=== PATIENT | male | born 1965 | race Caucasian/White ===

== ENCOUNTER 2025-01-04 07:49 | Outpatient (REF) | payer MEDICARE, SELFPAY ==
[2025-01-04 06:40] LABS: MANUAL DIFF FLAG NO
[2025-01-04 06:50] LABS: Basophils Absolute Auto 0.1 X10*3/uL (0.0-0.2); Basophils Percent Auto 0.9 % (0-2); Eosinophils Absolute Auto 0.3 X10*3/uL (0.0-0.4); Eosinophils Percent Auto 3.4 % (0-4); Hematocrit 34.2 % (42.0-52.0); Hemoglobin 10.6 g/dl (14.0-18.0); Imm Gran Abs Auto 0.14 X10*3/uL (0.00-0.03); Imm Gran Pct Auto 1.6 % (0.0-0.4); Lymphocytes Percent Auto 22.2 % (20-40); Mean Corpuscular Volume 83.8 fL (80.0-98.0); Mean Platelet Volume 10.1 fL (9.4-12.4); Monocytes Percent Auto 10.6 % (2-11); Neutrophils Absolute Auto 5.5 x10*3/uL (2.0-8.3); Neutrophils Percent Auto 61.3 % (45-73); Platelet Count 270 X10*3/uL (160-400); Red Blood Count 4.08 X10*6/uL (4.60-5.80); Red Cell Distribution Width 15.3 % (11.0-16.0)
[2025-01-04 07:03] LABS: Anion Gap 14 (12-20); Blood Urea Nitrogen 21 mg/dL (9-16); Carbon Dioxide 30 mmol/L (22-29); Chloride 104 mmol/L (96-108); Estimated Glomerular Filt Rate > 60; Glucose Random 93 mg/dL (60-115); Potassium 4.7 mmol/L (3.3-5.1); Sodium 143 mmol/L (135-145)
--- OUTSIDE RECORDS SUMMARY | 2025-01-04 07:51 | XMS_ITS | Data Portability ---
Author Organization [facility], Main Office Address [address] [address] [address] [place] [address] Care Team Providers Care Marriage Counselor Minister Name Role Phone DENISE GONZALEZ Primary Care Provider [phone] MARELY DE LEON 1ST FLOOR OTHER Assessment Encounter Date Assessment Date Assessment LastModified by Organization Details LastModified Time 10/14/2024 10/14/2024 Labs 09/21: Na 138-K 4.6-Bun 26-Cr 1.0-wbc 17.4-hgb 11.6-hct 36.3-plt 357 10/08: Na 140, K 4.6, Bun 21, Cr 0.91. Wbc 9.9, hgb 9.6, hct 30.3, Plt 277. Not available 10/14/2024 10:10:09 10/21/2024 10/21/2024 Labs 09/21: Na 138-K 4.6-Bun 26-Cr 1.0-wbc 17.4-hgb 11.6-hct 36.3-plt 357 10/08: Na 140, K 4.6, Bun 21, Cr 0.91. Wbc 9.9, hgb 9.6, hct 30.3, Plt 277. 10/19: Na 140, K 4.6, Bun 28. Cr 1.21. Wbc 10.1, Hgb 7.8, Hct 24.7, Plt 333 Not available 10/21/2024 09:50:21 10/28/2024 10/28/2024 Labs 09/21: Na 138-K 4.6-Bun 26-Cr 1.0-wbc 17.4-hgb 11.6-hct 36.3-plt 357 10/08: Na 140, K 4.6, Bun 21, Cr 0.91. Wbc 9.9, hgb 9.6, hct 30.3, Plt 277. 4/14: Na 140, K 4.6, Bun 28. Cr 1.21. Wbc 10.1, Hgb 7.8, Hct 24.7, Plt 333 4/21: NA 140, K 4.1, Bun 25, Cr 1.21. Wbc 9.4, Hgb 7.7, Hct 25.1, Plt 416 Not available 10/28/2024 10:31:07 11/04/2024 11/04/2024 Labs 09/21: Na 138-K 4.6-Bun 26-Cr 1.0-wbc 17.4-hgb 11.6-hct 36.3-plt 357 /: Na 140, K 4.6, Bun 21, Cr 0.91. Wbc 9.9, hgb 9.6, hct 30.3, Plt 277. 4/14: Na 140, K 4.6, Bun 28. Cr 1.21. Wbc 10.1, Hgb 7.8, Hct 24.7, Plt 333 4/21: NA 140, K 4.1, Bun 25, Cr 1.21. Wbc 9.4, Hgb 7.7, Hct 25.1, Plt 416 /: Na 143, K 4.7, Bun 24, Cr 1.29. Wbc 8.5, Hgb 8.1, Hct 26.8, Plt 383 Chest Xray- no acute cardiopulmonary disease. Not available 11/04/2024 10:04:35 Plan of Treatment Reminders Order Date Submit Date Provider Last Modified By Organization Details Last Modified Time Details Appointments None record ed. Lab None record ed. Referral None record ed. Procedures None record ed. Surgeries None record ed. Imaging None record ed. Medication Orders None record ed. Patient TargetsNo targets recorded. Patient InstructionsNo instructions recorded. Reason for Referral None Reported. Problems Name Problem SNOMED Code Status Onset Date Resolution Date Notes Provider Name and Address Organization Details Recorded Time Nontraumati c intraparenc hymal cerebral hemorrhage 1698415394514 03 Active 2024 Esa Rodrigues MD [address] [facility], [address], [place], [address] , [facility] 02/07/202 5 11:08:30 Chronic obstructive pulmonary disease 26459309 Active 2024 Esa Rodrigues MD [address], [address], [place], [address], [facility] 5 11:08:49 Dysphagia 27488644 Active 2024 Esa Rodrigues MD [address], [address], [place], [address], [facility] 5 11:09:20 Atrial fibrillatio n 56041628 Active 2024 Esa Rodrigues MD [address], [address], [place], [address], [facility] 5 11:11:53 Coronary arterioscle rosis 70766157 Active 2024 Esa Rodrigues MD [address], [address], [place], [address], [facility] 5 11:11:58 Alcohol dependence 31935787 Active 2024 Esa Rodrigues MD [address], [address], [place], [address], [facility] 5 11:12:38 Tobacco user 629374758 Active 2024 Esa Rodrigues MD [address], [address], [place], [address], [facility] 5 11:12:43 Essential hypertensio n 61741301 Active 2024 Esa Rodrigues MD [address], [address], [place], [address], [facility] 5 11:12:48 Mixed hyperlipide micaela 110065671 Active 2024 Esa Rodrigues MD [address], [address], [place], [address], [facility] 5 11:12:56 Congestive heart failure 75400146 Active 2024 Esa Rodrigues MD [address], [address], [place], [address], [facility] 5 11:13:02 Problem Notes None recorded. Medical Equipment None Reported. Allergies Allergen ID Allergen Name Allergen Category Reaction Reaction Severity Criticality Documentation Date Start Date Code Code System Note Provider Name and Address Organization Details Recorded Time 62722 Product containin g penicilli n (product) medicatio n Not available Not available Not available 08/14/2024 02873 8001 SNOMED Esa Rodrigues MD [address] [place] [address], [facility] [address], [place], [address], [facility] 5 11:22:28 52466 shellfish derived food,medi cation Not available Not available Not available 08/14/2024 24160 UNK Esa Rodrigues MD [address] [place] [address], [address], [facility] 5 11:22:49 Medications Not known to be on any medication Vitals Date Recorded Heart rate Respiratory rate Body temperature Oxygen saturation Oxygen saturation in Arterial blood by Pulse oximetry Inhaled oxygen flow rate Systolic blood pressure Diastolic blood pressure Provider Name and Address Organization Details Last Updated DateTime 5 60 /min 18 /min 98.7 [degF] 98 % 98 % 2 L/min 136 mm[Hg] 75 mm[Hg] KIAN RODRIGUEZ CNP [address] [place] [address], [address] [facility] 5 10:14:04 Date Recorded Body weight Heart rate Respiratory rate Body temperature Oxygen saturation Oxygen saturation in Arterial blood by Pulse oximetry Inhaled oxygen flow rate Systolic blood pressure Diastolic blood pressure Provider Name and Address Organization Details Last Updated DateTime 5 24694.1 9 g 70 /min 18 /min 98.1 [degF] 96 % 96 % 2 L/min 143 mm[Hg] 74 mm[Hg] KIAN RODRIGUEZ CNP [address] [place] [address], [address] , [place] [facility] 5 09:55:08 Date Recorded Body weight Heart rate Respiratory rate Body temperature Oxygen saturation Oxygen saturation in Arterial blood by Pulse oximetry Inhaled oxygen flow rate Systolic blood pressure Diastolic blood pressure Provider Name and Address Organization Details Last Updated DateTime 5 12023.7 g 58 /min 18 /min 98.1 [degF] 94 % 94 % 2 L/min 110 mm[Hg] 63 mm[Hg] KIAN RODRIGUEZ CNP [address] [facility], [address], [place], [address], [facility] 5 09:37:59 Date Recorded Systolic blood pressure Diastolic blood pressure Provider Name and Address Organization Details Last Updated DateTime 11/09/2024 135 mm[Hg] 64 mm[Hg] Esa Rodrigues MD [address] [facility], [address], [place], [address], [facility] 11/09/2024 11:23:22 Date Recorded Heart rate Systolic blood pressure Diastolic blood pressure Provider Name and Address Organization Details Last Updated DateTime 11/11/2024 87 /min 116 mm[Hg] 67 mm[Hg] KIAN RODRIGUEZ CNP [address] [facility], [facility] [address], [place], [address], [facility] 11/11/2024 10:11:22 Social History Question Answer Notes LastModified by Organizat ion Details LastModified Time Tobacco Smoking Status Current Every Day Smoker Esa Rodrigues MD [address] [facility] [address], [place], [address], [facility] 08/14/2024 11:21:57 Do You Have An Advance Directive? No Information not available 08/14/2024 What Is Your Code Status? Full Code Information not available 08/14/2024 Sex: Unknown Functional Status Question Answer Note LastModified by Organization D etails LastModified Time What is your level of alcohol consumption? Heavy Information not available 08/14/2024 Mental Status None recorded. Family History Nothing Reported Notes:N/C Medical History No medical history recorded. Immunizations Vaccine Type Date Status Note Provider Nam e and Address Organization Details Recorded Time Tdap 09/28/2016 completed Pattie cabrales [facility] [place] 08/14/2024 16:05:11 SARS-COV-2 (COVID-19) vaccine, UNSPECIFIED 11/29/2020 completed Pattie cabrales [facility] [place] 08/14/2024 16:05:29 Past Encounters Encounter ID Performer Location Encounter Start Date Encounter Closed Date Diagnosis/Indication Diagnosis SNOMED-CT Code Diagnosis ICD10 Code Diagnosis Note [id number] MD SHANNEN Vides [address] [place] [address] 08/14/2024 10:59:15 08/17/2024 16:18:46 Nontraumatic intraparenchymal cerebral hemorrhage 3978003042 93137 I61.8 see HPIrecentl y discharged from hospital for right Intraparen chymal hemorrhage with mild left hemiparesi s and dysarthria on discharge. At home dysarthria worsened and returned to hospital. Repeat imaging showed reabsorpti on of IPH however worsening vasogenic edema with midline shift. Started on ASA 08/05 through 08/26 with f/u neuro in place. Continued on dysphagia diet and continued on keppra 750 mg bid with plan to reassess ability to restart xarelto on 08/26 Chronic ob structive pulmonary disease 72710293 J44.1 restart qid duonebsmon itor respirator y statuscomp lete prednisone coursecoor dinate with respirator y at facilitypu lmonary eval prn Respirator y syncytial virus infection 73971799 B97.4 see above Asthenia 38751463 R53.1 PT OT eval and treatmonit or fall risk and need for increased support in community Dysphagia 83919804 I69.2 91 monitor aspiration risk and need to further adjust diet Atrial fibrillation 4943 6004 I48.0 Xarelto on hold due to aboveamiod arone 200 mg qdasa 81 mg qd through 08/26metopr olol 50 mg qdmonitor for rate control Coronary arteriosclerosis 68244973 I25.10 lipitor 40 mg qdmetoprol ol 50 mg qdmonitor for sx Alcohol dependence 29130 003 F10.20 added to PMHcontinu e thiaminemo nitor need for increased support in community Tobacco user 457847152 Z 72.0 added to PMHencoura ge quittingco ntinue nicotine supplement Essential hypertension 61806613 I10 metoprolol 50 mg qdlasix 40 mg qdlisinopr il 10 mg qdentresto 24-26 mg bidmonitor bp and need titrate Mixed hyperlipidemia 267 442821 E78.2 lipitor 40 mg qdcontinue d Congestive heart failure 51761978 I50.22 EF=35%lasi x 40 mg qdentresto 24-26 mg bidmonitor respirator y and fluid status [id number] URIEL PRIDE TIMOTHY [address] [place] [address] 08/19/2024 13:34:52 08/20/2024 13:07:58 Nontraumatic intraparenchymal cerebral hemorrhage 6263689021 42350 I61.8 continue ASA 08/05 through 08/26 with f/u neuro in place.Cont inued on dysphagia diet and continued on keppra 750 mg bid with plan to reassess ability to restart xarelto on 08/26neuros intact Chronic ob structive pulmonary disease 71590461 J44.1 continue duonebs QIDmonitor respirator y statuspulm nurse to followlung sounds still coarse Respirator y syncytial virus infection 75751758 B97.4 improving slowly [id number] URIEL LORD SHANNEN AGUIRRE [address] [place] [address] 08/24/2024 09:32:25 08/25/2024 12:01:07 Nontraumatic intraparenchymal cerebral hemorrhage 2064060813 94653 I61.8 continue ASA 08/05 through 08/26 with f/u neuro in place.Cont inued on dysphagia diet and continued on keppra 750 mg bid with plan to reassess ability to restart xarelto on 08/26 Chronic ob structive pulmonary disease 49950073 J44.1 continue duonebs QID Respirator y syncytial virus infection 97004574 B97.4 resolved Asthenia 94907374 R53.1 baselineVN A Outpt Atrial fibrillation 4943 6004 I48.0 Xarelto on hold due to aboveamiod arone 200 mg qdasa 81 mg qd through 08/26 then restart xareltomet oprolol 50 mg qd Coronary arteriosclerosis 57651460 I25.10 lipitor 40 mg qdmetoprol ol 50 mg qd Alcohol dependence 16969 003 F10.20 continue thiamine Tobacco user 806939811 Z 72.0 added to PMHenc[place] ge quittingco ntinue nicotine supplement Essential hypertension 29849253 I10 metoprolol 50 mg qdlasix 40 mg qdlisinopr il 10 mg qdentresto 24-26 mg bid Mixed hyperlipidemia 267 486174 E78.2 lipitor 40 mg qd Congestive heart failure 01293714 I50.22 EF=35%lasi x 40 mg qdentresto 24-26 mg bid [id number] MD MARELY iVdes HALEY [address] [place] [address] rd [place] [address] 09/02/2024 09:13:06 09/07/2024 15:57:48 Nontraumatic intraparenchymal cerebral hemorrhage 5307672914 30441 I61.8 see HPIrecentl y discharged from hospital for right Intraparen chymal hemorrhage with mild left hemiparesi s and dysarthria on dischargem aintained onxarelto 20 mg qdkeppra 1500 mg bidcoordin ate with neuro as needed Chronic ob structive pulmonary disease 57449752 J44.1 monitor neb utilizatio n and respirator y statusnow onpredniso ne 60 mg qdwill decrease by 10 mg q 5 days till at 10 mg then reassesspu lmonary eval prn Asthenia 36116168 R53.1 PT OT eval and treatmonit or fall risk and need for increased support in community Dysphagia 87808895 I69.2 91 monitor aspiration risk and need to further adjust diet Atrial fibrillation 4943 6004 I48.0 Xarelto 20 mg qdamiodaro ne 200 mg qdmetoprol ol 50 mg qdmonitor for rate control Coronary arteriosclerosis 50181039 I25.10 lipitor 40 mg qdmetoprol ol 50 mg qdmonitor for sx Alcohol dependence 57322 003 F10.20 added to PMHcontinu e thiaminemo nitor need for increased support in community Tobacco user 877019650 Z 72.0 added to PMHencoura ge quittingco ntinue nicotine supplement Essential hypertension 08877673 I10 metoprolol 50 mg qdnorvasc 5 mg qdlasix 40 mg qdentresto 24-26 mg bidmonitor bp and need titrate Mixed hyperlipidemia 267 703908 E78.2 lipitor 40 mg qdcontinue d Congestive heart failure 15160301 I50.22 EF=35%lasi x 40 mg qdentresto 24-26 mg bidmonitor respirator y and fluid status [id number] MARY SQUIRES [address] [place] [address] 10/04/2024 10:50:42 10/27/2024 08:10:53 Chronic obstructive pulmonary disease 00369652 J44.1 stable O2 dependentm onitor respirator y statusCont prednisone 5mg qdpulmonar y eval prn Nontraumat ic intraparenchymal cerebral hemorrhage 8156577061 54043 I61.8 stablerece ntly discharged from hospital for right Intraparen chymal hemorrhage with mild left hemiparesi s and dysarthria on dischargem aintained onxarelto 20 mg qdkeppra 1500 mg bidcoordin ate with neuro as needed Atrial fibrillation 4943 6004 I48.0 HR controlled Xarelto 20 mg qdamiodaro ne 200 mg qdmetoprol ol 50 mg qdmonitor for rate control Coronary arteriosclerosis 67864590 I25.10 stablelipi tor 40 mg qdmetoprol ol 50 mg qdmonitor for sx Essential hypertension 77625699 I10 stablemeto prolol 50 mg qdnorvasc 5 mg qdlasix 40 mg qdentresto 24-26 mg bidmonitor bp and need titrate Congestive heart failure 34758031 I50.22 stable euvolemicE F=35%lasix 40 mg qdentresto 24-26 mg bidmonitor respirator y and fluid status [id number] KIAN RODRIGUEZ, MEDARDO [address] [place] [address] 10/07/2024 08:46:35 10/09/2024 08:38:44 Chronic obstructive pulmonary disease 04167639 J44.1 now on prednisone 10 mg daily. Will taper down to 5 mg daily and will reassess.C ontinue neb QID.Contin ue monitor respirator y status.pul monary eval prn.Will check lab, CBC, CMP tomorrow. Nontraumat ic intraparenchymal cerebral hemorrhage 1515617860 12118 I61.8 see HPIrecentl y discharged from hospital for right Intraparen chymal hemorrhage with mild left hemiparesi s and dysarthria on discharge. Stable now.mainta ined onxarelto 20 mg qdkeppra 750 mg bidcoordin ate with neuro as needed Asthenia 66623777 R53.1 Improving. Continue PT OT, PRN eval and treatmonit or fall risk and need for increased support in community Dysphagia 09893682 I69.2 91 Resolved.I s currently is on regular diet, no coughing or chocking reported. Atrial fibrillation 4943 6004 I48.0 HR stable.Xar elto 20 mg qdamiodaro ne 200 mg qdmetoprol ol 50 mg qdmonitor for rate control Coronary arteriosclerosis 09965694 I25.10 lipitor 40 mg qdmetoprol ol 50 mg qdmonitor for sx Alcohol dependence 68463 003 F10.20 added to PMHcontinu e thiaminemo nitor need for increased support in community Tobacco user 008070283 Z 72.0 added to PMHenc[place] ge quittingco ntinue nicotine supplement Essential hypertension 54627158 I10 metoprolol 50 mg qdnorvasc 5 mg qdlasix 40 mg qdentresto 24-26 mg bidmonitor bp and need titrate Mixed hyperlipidemia 267 805911 E78.2 lipitor 40 mg qdcontinue d Congestive heart failure 16588276 I50.22 EF=35%Pt is euvolemic, but gained 14 lb over a month.? volume overload or due to high dose of prednisone .continuel asix 40 mg qdentresto 24-26 mg bidmonitor respirator y and fluid statuswill monitor wt weekly.Sabas l check labs tomorrow. [id number] KIAN RODRIGUEZ, MEDARDO [address] [address] 10/14/2024 09:50:34 10/21/2024 11:35:43 Chronic obstructive pulmonary disease 09707501 J44.1 now on prednisone 5 mg daily, Will taper down to 2.5 mg daily and will reassess.w bc trending down.Keiry nue neb.Contin ue monitor respirator y status.pul monary eval prn.Will check lab weekly. Nontraumat ic intraparenchymal cerebral hemorrhage 9105437160 48144 I61.8 see HPIrecentl y discharged from hospital for right Intraparen chymal hemorrhage with mild left hemiparesi s and dysarthria on discharge. Stable now.mainta ined onxarelto 20 mg qdkeppra 750 mg bidcoordin ate with neuro as needed Asthenia 62565281 R53.1 Improving. Continue PT OT, PRN eval and treatmonit or fall risk and need for increased support in community Dysphagia 74870900 I69.2 91 Resolved.I s currently is on regular diet, no coughing or chocking reported. Atrial fibrillation 4943 6004 I48.0 HR stable.Xar elto 20 mg qdamiodaro ne 200 mg qdmetoprol ol 50 mg qdmonitor for rate control Coronary arteriosclerosis 79875398 I25.10 lipitor 40 mg qdmetoprol ol 50 mg qdmonitor for sx Alcohol dependence 87649 003 F10.20 added to PMHcontinu e thiaminemo nitor need for increased support in community Tobacco user 585496378 Z 72.0 added to PMH[place] ge quittingco ntinue nicotine supplement Essential hypertension 52140213 I10 BP stable.met oprolol 50 mg qdnorvasc 5 mg qdlasix 40 mg qdentresto 24-26 mg bidmonitor bp and need titrate Mixed hyperlipidemia 267 637148 E78.2 lipitor 40 mg qdcontinue d Congestive heart failure 56746084 I50.22 EF=35%Pt is euvolemic, but gained 14 lb over a month.? volume overload or due to high dose of prednisone .continuel asix 40 mg qdentresto 24-26 mg bidmonitor respirator y and fluid statuswill monitor wt weekly.Sabas l check labs tomorrow. [id number] KIAN RODRIGUEZ, SHAPE CARVER [address] [address] 10/21/2024 09:10:50 10/27/2024 08:23:45 Chronic obstructive pulmonary disease 94268301 J44.1 Stable, no exacerbati on noted.Pred nisone tapered down to 2.5 mg now, and will tapered to 1 mg daily for 5 days and then stop.wbc trending down.will change neb treatment as PRN.Contin ue monitor respirator y status.pul monary eval prn.Will check lab weekly. Nontraumat ic intraparenchymal cerebral hemorrhage 6822569244 24216 I61.8 see HPIrecentl y discharged from hospital for right Intraparen chymal hemorrhage with mild left hemiparesi s and dysarthria on discharge. Stable now.mainta ined onxarelto 20 mg qdkeppra 750 mg bidcoordin ate with neuro as needed Asthenia 27581997 R53.1 Improving. Continue PT OT, PRN eval and treatmonit or fall risk and need for increased support in community Dysphagia 60618409 I69.2 91 Resolved.I s currently is on regular diet, no coughing or chocking reported. Atrial fibrillation 4943 6004 I48.0 HR stable.Xar elto 20 mg qdamiodaro ne 200 mg qdmetoprol ol 50 mg qdmonitor for rate control Coronary arteriosclerosis 75297121 I25.10 lipitor 40 mg qdmetoprol ol 50 mg qdmonitor for sx Alcohol dependence 50558 003 F10.20 added to PMHcontinu e thiaminemo nitor need for increased support in community Tobacco user 261168691 Z 72.0 added to PMHencoura ge quittingco ntinue nicotine supplement Essential hypertension 00327487 I10 BP stable.met oprolol 50 mg qdnorvasc 5 mg qdlasix 40 mg qdentresto 24-26 mg bidmonitor bp and need titrate Mixed hyperlipidemia 267 095801 E78.2 lipitor 40 mg qdcontinue d Congestive heart failure 69612065 I50.22 EF=35%Pt is euvolemic, but gained 14 lb over a month.? volume overload or due to high dose of prednisone .continuel asix 40 mg qdentresto 24-26 mg bidmonitor respirator y and fluid statuswill monitor wt weekly.Sabas carlos eduardo check labs tomorrow. [id number] KIAN RODRIGUEZ CNP [address] [address] 10/28/2024 09:19:53 11/03/2024 11:20:44 Chronic obstructive pulmonary disease 78771751 J44.1 Stable, no exacerbati on noted.Pred nisone tapered down and completed yesterday. wbc trending down.He has been using neb treatment as PRN.Contin ue monitor respirator y status.ref er to pulmonary for evalWill check lab weekly. Nontraumat ic intraparenchymal cerebral hemorrhage 7912217880 57156 I61.8 see HPIrecentl y discharged from hospital for right Intraparen chymal hemorrhage with mild left hemiparesi s and dysarthria on discharge. Stable now.mainta ined onxarelto 20 mg qdkeppra 750 mg bidcoordin ate with neuro as needed Asthenia 83636840 R53.1 Improving. Continue PT OT, PRN eval and treatmonit or fall risk and need for increased support in community Atrial fibrillation 4943 6004 I48.0 HR stable.Xar elto 20 mg qdamiodaro ne 200 mg qdmetoprol ol 50 mg qdmonitor for rate control Coronary arteriosclerosis 57243382 I25.10 lipitor 40 mg qdmetoprol ol 50 mg qdmonitor for sx Alcohol dependence 49645 003 F10.20 added to PMHcontinu e thiaminemo nitor need for increased support in community Tobacco user 734850948 Z 72.0 added to PMHencoura ge quittingco ntinue nicotine supplement Essential hypertension 86817906 I10 BP stable.met oprolol 50 mg qdnorvasc 5 mg qdlasix 40 mg qdentresto 24-26 mg bidmonitor bp and need titrate Mixed hyperlipidemia 267 913276 E78.2 lipitor 40 mg qdcontinue d Congestive heart failure 67540166 I50.22 EF=35%Pt is euvolemic, but gained 14 lb over a month.? volume overload or due to high dose of prednisone .continuel asix 40 mg qdentresto 24-26 mg bidmonitor respirator y and fluid statuswill monitor wt weekly.Sabas l check labs tomorrow. [id number] KIAN RODRIGUEZ, MEDARDO [address] [address] 11/04/2024 09:35:19 11/06/2024 14:11:01 Chronic obstructive pulmonary disease 29066334 J44.1 Stable, no exacerbati on noted.Pred nisone tapered down and completed last week.wbc trending down.He has been using neb treatment as PRN.Contin ue monitor respirator y status.pul monary evaluation scheduled. Will check lab weekly. Nontraumat ic intraparenchymal cerebral hemorrhage 6720091323 00192 I61.8 see HPIrecentl y discharged from hospital for right Intraparen chymal hemorrhage with mild left hemiparesi s and dysarthria on discharge. Stable now.mainta ined onxarelto 20 mg qdkeppra 750 mg bidcoordin ate with neuro as needed Asthenia 32693707 R53.1 Improving. Continue PT OT, PRN eval and treatmonit or fall risk and need for increased support in community Atrial fibrillation 4943 6004 I48.0 HR stable.Xar elto 20 mg qdamiodaro ne 200 mg qdmetoprol ol 50 mg qdmonitor for rate control Coronary arteriosclerosis 91261273 I25.10 lipitor 40 mg qdmetoprol ol 50 mg qdmonitor for sx Alcohol dependence 71878 003 F10.20 added to PMHcontinu e thiaminemo nitor need for increased support in community Tobacco user 211887162 Z 72.0 added to PMH[place] ge quittingco ntinue nicotine supplement Essential hypertension 88189992 I10 BP stable.met oprolol 50 mg qdnorvasc 5 mg qdlasix 40 mg qdentresto 24-26 mg bidmonitor bp and need titrate Mixed hyperlipidemia 267 295674 E78.2 lipitor 40 mg qdcontinue d Congestive heart failure 19307138 I50.22 EF=35%Pt is euvolemic, but gained 14 lb over a month.? volume overload or due to high dose of prednisone .continuel asix 40 mg qdentresto 24-26 mg bidmonitor respirator y and fluid statuswill monitor wt weekly.car diology f/u scheduled today. [id number] Esa Rodrigues MD [address] [place] [address] 11/09/2024 11:22:44 11/11/2024 14:10:04 Acute kidney injury 92711631 N17.8 see HPI question due to diuresisno w metolazone has been discontinu eddischarg ed on torsemide 20 mg with frequency to be confirmed with hospital - monitor need to increase to BIDwill change to q day and monitor weightsdis cussed with nursing Normocytic anemia 250210 002 D64.9 acute on chronic anemianow on iron 325 mg m/w/fto f/u with GI out patient with no bleeding source foundhx need for iron infusionmo nitor cbcheme eval prnof note remains on xarelto Congestive heart failure 35619912 I50.22 now ontorsemid e 20 mg qdentresto 24-26 mg bidmonitor respirator y and fluid statusupda te cards with concerns Chronic ob structive pulmonary disease 98798459 J44.1 recent need for prednisone utilizatio nmonitor respirator y statuspulm onary eval prn Nontraumat ic intraparenchymal cerebral hemorrhage [id number] I61.8 prior right Intraparen chymal hemorrhage with mild left hemiparesi s and dysarthria on dischargem aintained onxarelto 20 mg qdkeppra 750 mg bidcoordin ate with neuro as needed Asthenia [id number] R53.1 PT OT eval and treatmonit or fall risk and need for increased support in community Dysphagia [id number] I69.2 91 monitor aspiration risk and need to further adjust diet Atrial fibrillation [id number] I48.0 Xarelto 20 mg qdamiodaro ne 200 mg qdmetoprol ol 12.5 mg qdmonitor for rate control Coronary arteriosclerosis [id number] I25.10 lipitor 40 mg qdmetoprol ol 12.5 mg qdmonitor for sx Essential hypertension [id number] I10 see HPI with changes now onmetoprol ol 12.5 mg qdtorsemid e 20 mg qd - pending confirmati on from [facility] tresto 24-26 mg bidmonitor bp and need titrate Mixed hyperlipidemia [id number] E78.2 lipitor 40 mg qdcontinue d Health Concerns Section Related Observation LastModified by Organization Detai ls LastModified Time None Recorded Concern Status LastModified by Organization Details LastModified Time None Recorded Advance Directives Directive N: Payers Insurance Date Sequence Insurance Name Policy Number Policy Rogers Covered Member ID Rogers Member ID Guarantor Name 11/09/2024 2 [place] [facility] Dwaine Orellana [id number] Dwaine Orellana 11/09/2024 1 [place] [employer] Dwaine Orellana [id number] Dwaine Orellana Notes Date Note Type Note Provider Name and Address Organization Details Recorded Time 10/14/2024 text/html This is a 59 yea r old male seen today for acute rounding visit.Patient here after recent prior hospitalizations due to worsening intraparenchymal hemorrhage and SOB on exertion. Question of COPD exacerbation vs rebound sx on stopping steroid. Imaging negative for acute issue with CTA negative for PE. Restarted on high dose steroids at prednisone 60 mg qd and tapered down to 10 mg daily now. Upon assessment today, pt was sitting in his bed, stable at his baseline, O2 dependent on 2L NC, VSS, NAD, there is no acute nursing concerns. He was on predisone 10 mg on discharge. He was not on chronic prednisone therapy prior to the hospitalization. We started taper prednisone, now on 5 mg daily. His respiratory status back to his baseline, can ambulate with 2-2.5 L oxygen without difficulty.He concerned about wt gain. He gained 14 lb since 09/05/24. From prior admit from hospital patient was recently discharged for right Intraparenchymal hemorrhage with mild left hemiparesis and dysarthria on discharge. At home dysarthria worsened and returned to hospital. Repeat imaging showed reabsorption of IPH however worsening vasogenic edema with midline shift. Complicated by testing positive for RSV. Started on ASA 08/05 through 08/26 with f/u neuro in place. He is off dysphagia diet, now regular diet. PMH significant forrecent intraparenchymal hemorrhage with left hemiparesis, a fib on xarelto 20 mg,cad, etoh, tobacco use, htn, hld, chf EF=35%, copd. KIAN RODRIGUEZ, SHAPE CARVER [address] [facility], [address], [place], [address], [facility] [employer] 10/14/2024 10:14:44 10/21/2024 text/html This is a 59 yea r old male seen today for acute rounding visit. Patient here after recent prior hospitalizations due to worsening intraparenchymal hemorrhage and SOB on exertion. Question of COPD exacerbation vs rebound sx on stopping steroid. Imaging negative for acute issue with CTA negative for PE. Restarted on high dose steroids at prednisone 60 mg qd and tapered down to 10 mg daily now. Upon assessment today, pt was sitting in his bed, stable at his baseline, O2 dependent on 2L NC, VSS, NAD, there is no acute nursing concerns. He was on predisone 10 mg on discharge. He was not on chronic prednisone therapy prior to the hospitalization. We started taper prednisone, now on 2.5 mg daily. His respiratory status back to his baseline, can ambulate with 2-2.5 L oxygen without difficulty. He also uses scheduled neb treatment QID. Pt states that he does not need to use neb QID. PMH significant forrecent intraparenchymal hemorrhage with left hemiparesis, a fib on xarelto 20 mg,cad, etoh, tobacco use, htn, hld, chf EF=35%, copd. KIAN RODRIGUEZ, SHAPE CARVER [address] [facility], [address], [place], [address], [facility] [employer] 10/21/2024 10:05:50 10/28/2024 text/html This is a 59 yea r old male seen today for acute rounding visit. Patient here after recent prior hospitalizations due to worsening intraparenchymal hemorrhage and SOB on exertion. Question of COPD exacerbation vs rebound sx on stopping steroid. Imaging negative for acute issue with CTA negative for PE. Restarted on high dose steroids at prednisone 60 mg qd and tapered down to 10 mg daily now. Upon assessment today, pt was sitting in his bed, stable at his baseline, O2 dependent on 2L NC, VSS, NAD, there is no acute nursing concerns. He had Predisone 10 mg on discharge. He was not on chronic prednisone therapy prior to the hospitalization. We started taper prednisone and completed. His respiratory status back to his baseline, can ambulate with 2-2.5 L. The neb treatment QID also changed to PRN. Per nursing he request neb and albuterol once or twice a day. Pt states that he feels a little weaker and increased sob when he ambulate the hallway. PMH significant forrecent intraparenchymal hemorrhage with left hemiparesis, a fib on xarelto 20 mg,cad, etoh, tobacco use, htn, hld, chf EF=35%, copd. KIAN RODRIGUEZ CNP [address] [facility], [address], [place], [address], [facility] [employer] [facility] 10/28/2024 10:41:17 11/04/2024 text/html This is a 59 yea r old male seen today for acute rounding visit. Patient here after recent prior hospitalizations due to worsening intraparenchymal hemorrhage and SOB on exertion. Question of COPD exacerbation vs rebound sx on stopping steroid. Imaging negative for acute issue with CTA negative for PE. Restarted on high dose steroids at prednisone 60 mg qd and tapered down to 10 mg daily now. Upon assessment today, pt was sitting in his bed, stable at his baseline, O2 dependent on 2L NC, VSS, NAD, there is no acute nursing concerns. He was on Predisone 10 mg on discharge. He was not on chronic prednisone therapy prior to the hospitalization. We started taper prednisone and completed. His respiratory status back to his baseline, can ambulate with 2-2.5 L. The neb treatment QID also changed to PRN. Per nursing he request neb and albuterol once or twice a day.He had a chest x ray done on 11/02 due to increased wt and feeling shortness of breath. Chest xray revealed no acute cardiopulmonary disease. He has a cardiology appointment today and also pulmonology consult appointment scheduled. PMH significant forrecent intraparenchymal hemorrhage with left hemiparesis, a fib on xarelto 20 mg,cad, etoh, tobacco use, htn, hld, chf EF=35%, copd. KIAN RODRIGUEZ CNP [address] [facility], [address], [place], [address], [employer] [facility] 11/04/2024 10:05:56 11/09/2024 text/html Patient is a 59 yo male seen for readmission after acute transfer presenting with ARF and anemia. Hypotensive on presentation now with norvasc and metolazone were d/c and metoprolol dose decreased to 12.5 mg qd after eval by cards. Noted anemia with hx of need for iron infusions, eval by GI with no source of bleeding noted. Started on iron 325 mg m/w/f to f/u with GI out patient. Of note maintained on xarelto Esa Rodrigues MD [address] [facility], [address], [place], [address], [facility] 11/09/2024 11:52:00
== END 2025-01-04 07:50 | disposition home or self-care (01) ==
LOC: HO.MMNH1L 07:49
PROVIDERS: Visit Provider Family Medicine
DX: J96.21 Acute and chronic respiratory failure with hypoxia (principal); J44.1 Chronic obstructive pulmonary disease with (acute) exacerbation; E46 Unspecified protein-calorie malnutrition
CPT/HCPCS: 36415; 80048; 85025

== ENCOUNTER 2025-01-11 14:20 | Outpatient (REF) | payer MEDICARE, SELFPAY ==
[2025-01-11 06:22] LABS: MANUAL DIFF FLAG NO
[2025-01-11 07:07] LABS: Anion Gap 13 (12-20); Blood Urea Nitrogen 20 mg/dL (9-16); Calcium 9.1 mg/dL (8.4-10.2); Carbon Dioxide 30 mmol/L (22-29); Chloride 101 mmol/L (96-108); Estimated Glomerular Filt Rate > 60; Potassium 3.9 mmol/L (3.3-5.1); Sodium 140 mmol/L (135-145)
[2025-01-11 07:08] LABS: Hematocrit 34.3 % (42.0-52.0); Hemoglobin 10.6 g/dl (14.0-18.0); Imm Gran Abs Auto 0.16 X10*3/uL (0.00-0.03); Imm Gran Pct Auto 1.9 % (0.0-0.4); Lymphocytes Absolute Auto 2.2 X10*3/uL (1.2-4.9); Mean Corpuscular HGB Conc 30.9 g/dl (31.0-36.0); Mean Corpuscular Hemoglobin 25.6 pg (27.0-33.0); Mean Corpuscular Volume 82.9 fL (80.0-98.0); NRBC Abs Auto 0.000 X10*3/uL (0.0-0.012); NRBC Pct Auto 0.0 /100WBC (0.0-0.2); Platelet Count 303 X10*3/uL (160-400); Red Blood Count 4.14 X10*6/uL (4.60-5.80); White Blood Count 8.3 X10*3/uL (4.8-10.8)
--- OUTSIDE RECORDS SUMMARY | 2025-01-11 14:50 | XMS_ITS | Data Portability ---
Author Organization [facility], Main Office Address [address] [address] [address] [place] [address] Care Team Providers Care Tapper Shank Name Role Phone DENISE GONZALEZ Primary Care Provider [phone] MARELY DE LEON 1ST FLOOR OTHER Assessment [...] Time Nontraumati c intraparenc hymal cerebral hemorrhage [id number] 03 Active 2024 Esa Rodrigues MD [address] [facility], [address], [place], [address] , [facility] 02/07/202 5 11:08:30 Chronic obstructive pulmonary disease 58352505 Active 2024 Esa Rodrigues MD [address], [address], [place], [address], [facility] 5 11:08:49 Dysphagia 95847895 Active 2024 Esa Rodrigues MD [address], [address], [place], [address], [facility] 5 11:09:20 Atrial fibrillatio n 21115801 Active 2024 Esa Rodrigues MD [address], [address], [place], [address], [facility] 5 11:11:53 Coronary arterioscle rosis 50225720 Active 2024 Esa Rodrigues MD [address], [address], [place], [address], [facility] 5 11:11:58 Alcohol dependence 89457787 Active 2024 Esa Rodrigues MD [address], [address], [place], [address], [facility] 5 11:12:38 Tobacco user 018494257 Active 2024 Esa Rodrigues MD [address], [address], [place], [address], [facility] 5 11:12:43 Essential hypertensio n 97075262 Active 2024 Esa Rodrigues MD [address], [address], [place], [address], [facility] 5 11:12:48 Mixed hyperlipide micaela 569661750 Active 2024 Esa Rodrigues MD [address], [address], [place], [address], [facility] 5 11:12:56 Congestive heart failure 05405908 Active 2024 Esa Rodrigues MD [address], [address], [place], [address], [facility] [email or web address] 5 11:13:02 Problem Notes None recorded. Medical Equipment None Reported. Allergies Allergen ID Allergen Name Allergen Category Reaction Reaction Severity Criticality Documentation Date Start Date Code Code System Note Provider Name and Address Organization Details Recorded Time 07236 Product containin g penicilli n (product) medicatio n Not available Not available Not available 08/14/2024 71118 8001 SNOMED Esa Rodrigues MD [address] [place] [address], [address], [facility] [email or web address] 5 11:22:28 62572 shellfish derived food,[facility] cation Not available Not available Not available 08/14/2024 63333 UNK Esa Rodrigues MD [address] [place] [address], [address] , [email or web address] 5 11:22:49 Medications Not known to be on any medication Vitals Date Recorded Heart rate Respiratory rate Body temperature Oxygen saturation Oxygen saturation in Arterial blood by Pulse oximetry Inhaled oxygen flow rate Systolic And Diastolic Provider Name and Address Organization Details Last Updated DateTime 5 60 /min 18 /min 98.7 [degF] 98 % 98 % 2 L/min 136/75 mm[Hg] KIAN RODRIGUEZ CNP [address] [place] [address], [address] [place], [place] [facility] 5 10:14:04 Date Recorded Body weight Heart rate Respiratory rate Body temperature Oxygen saturation Oxygen saturation in Arterial blood by Pulse oximetry Inhaled oxygen flow rate Systolic And Diastolic Provider Name and Address Organization Details Last Updated DateTime 5 06003.1 9 g 70 /min 18 /min 98.1 [degF] 96 % 96 % 2 L/min 143/74 mm[Hg] KIAN RODRIGUEZ CNP [address] [place] [address], [address] , [place] [facility] 5 09:55:08 Date Recorded Body weight Heart rate Respiratory rate Body temperature Oxygen saturation Oxygen saturation in Arterial blood by Pulse oximetry Inhaled oxygen flow rate Systolic And Diastolic Provider Name and Address Organization Details Last Updated DateTime 5 98614.7 g 58 /min 18 /min 98.1 [degF] 94 % 94 % 2 L/min 110/63 mm[Hg] KIAN RODRIGUEZ CNP [address] [facility], [address], [place], [address], [facility] 09:37:59 Date Recorded Systolic And Diastolic Provider Name and Address Organization Details Last Updated DateTime 11/09/2024 135/64 mm[Hg] Esa Rodrigues MD [address] [facility] [address], [place], [address], [email or web address] 11/09/2024 11:23:22 Date Recorded Heart rate Systolic And Diastolic Provider Name and Address Organization Details Last Updated DateTime 11/11/2024 87 /min 116/67 mm[Hg] KIAN RODRIGUEZ CNP [address] [facility], [facility] [address], [place], [address], [facility] 11/11/2024 10:11:22 Social History Question Answer Notes LastModified by Organizat ion Details LastModified Time Tobacco Smoking Status Current Every Day Smoker Esa Rodrigues MD [address] [facility] [address], [place], [address], [facility] 08/14/2024 11:21:57 Do You Have An Advance Directive? No Information not available 08/14/2024 What Is Your Code Status? Full Code [email or web address] Information not available 08/14/2024 Sex: Unknown Functional [...] Recorded Time Tdap 09/28/2016 completed Pattie cabrales [email or web address] 08/14/2024 16:05:11 SARS-COV-2 (COVID-19) vaccine, UNSPECIFIED 11/29/2020 completed Pattie cabrales [email or web address] 08/14/2024 16:05:29 Past Encounters Encounter ID Performer Location Encounter Start Date Encounter Closed Date Diagnosis/Indication Diagnosis SNOMED-CT Code Diagnosis ICD10 Code Diagnosis Note [id number] MD SHANNEN Vides [address] [place], [place] [address] 08/14/2024 10:59:15 08/17/2024 16:18:46 Nontraumatic intraparenchymal cerebral hemorrhage [id number] 54700 I61.8 see HPIrecentl y discharged from hospital [...] on 08/26 Chronic ob structive pulmonary disease 79520386 J44.1 restart qid duonebsmon itor respirator y statuscomp lete prednisone coursecoor dinate with respirator y at facilitypu lmonary eval prn Respirator y syncytial virus infection 45901701 B97.4 see above Asthenia 90221038 R53.1 PT OT eval and treatmonit or fall risk and need for increased support in community Dysphagia 26097281 I69.2 91 monitor aspiration risk and need to further adjust diet Atrial fibrillation 4943 6004 I48.0 Xarelto on hold due to aboveamiod arone 200 mg qdasa 81 mg qd through 08/26metopr olol 50 mg qdmonitor for rate control Coronary arteriosclerosis 20713328 I25.10 lipitor 40 mg qdmetoprol ol 50 mg qdmonitor for sx Alcohol dependence 71745 003 F10.20 added to PMHcontinu e thiaminemo nitor need for increased support in community Tobacco user 200664242 Z 72.0 added to PMHenc[place] ge quittingco ntinue nicotine supplement Essential hypertension 55866458 I10 metoprolol 50 mg qdlasix 40 mg qdlisinopr il 10 mg qdentresto 24-26 mg bidmonitor bp and need titrate Mixed hyperlipidemia 267 885228 E78.2 lipitor 40 mg qdcontinue d Congestive heart failure 70301493 I50.22 EF=35%lasi x 40 mg qdentresto 24-26 mg bidmonitor respirator y and fluid status [id number] URIEL AGUIRRE [address] [place] [address] 08/19/2024 13:34:52 08/20/2024 13:07:58 Nontraumatic intraparenchymal cerebral hemorrhage 2599592067 12702 I61.8 continue ASA 08/05 through 08/26 with f/u neuro in place.Cont inued on dysphagia diet and continued on keppra 750 mg bid with plan to reassess ability to restart xarelto on 08/26neuros intact Chronic ob structive pulmonary disease 99193145 J44.1 continue duonebs QIDmonitor respirator y statuspulm nurse to followlung sounds still coarse Respirator y syncytial virus infection 63275502 B97.4 improving slowly [id number] URIEL REDDYDIVYA [address] [address] 08/24/2024 09:32:25 08/25/2024 12:01:07 Nontraumatic intraparenchymal cerebral hemorrhage 1575537637 14868 I61.8 continue ASA 08/05 through 08/26 with f/u neuro in place.Cont inued on dysphagia diet and continued on keppra 750 mg bid with plan to reassess ability to restart xarelto on 08/26 Chronic ob structive pulmonary disease 25475202 J44.1 continue duonebs QID Respirator y syncytial virus infection 03693470 B97.4 resolved Asthenia 76679704 R53.1 baselineVN A Outpt Atrial fibrillation 4943 6004 I48.0 Xarelto on hold due to aboveamiod arone 200 mg qdasa 81 mg qd through 08/26 then restart xareltomet oprolol 50 mg qd Coronary arteriosclerosis 29464783 I25.10 lipitor 40 mg qdmetoprol ol 50 mg qd Alcohol dependence 82333 003 F10.20 continue thiamine Tobacco user 362968108 Z 72.0 added to PMH[place] ge quittingco ntinue nicotine supplement Essential hypertension 31079644 I10 metoprolol 50 mg qdlasix 40 mg qdlisinopr il 10 mg qdentresto 24-26 mg bid Mixed hyperlipidemia 267 686594 E78.2 lipitor 40 mg qd Congestive heart failure 66378404 I50.22 EF=35%lasi x 40 mg qdentresto 24-26 mg bid [id number] MD MARELY Vides [address] [place] [address] [place] [address] 09/02/2024 09:13:06 09/07/2024 15:57:48 Nontraumatic intraparenchymal cerebral hemorrhage 9453337433 93547 I61.8 see HPIrecentl y discharged from hospital for right Intraparen chymal hemorrhage with mild left hemiparesi s and dysarthria on dischargem aintained onxarelto 20 mg qdkeppra 1500 mg bidcoordin ate with neuro as needed Chronic ob structive pulmonary disease 76999433 J44.1 monitor neb utilizatio n and respirator y statusnow onpredniso ne 60 mg qdwill decrease by 10 mg q 5 days till at 10 mg then reassesspu lmonary eval prn Asthenia 80263947 R53.1 PT OT eval and treatmonit or fall risk and need for increased support in community Dysphagia 46960268 I69.2 91 monitor aspiration risk and need to further adjust diet Atrial fibrillation 4943 6004 I48.0 Xarelto 20 mg qdamiodaro ne 200 mg qdmetoprol ol 50 mg qdmonitor for rate control Coronary arteriosclerosis 46450428 I25.10 lipitor 40 mg qdmetoprol ol 50 mg qdmonitor for sx Alcohol dependence 53517 003 F10.20 added to PMHcontinu e thiaminemo nitor need for increased support in community Tobacco user 592173017 Z 72.0 added to PMH[place] ge quittingco ntinue nicotine supplement Essential hypertension 31172848 I10 metoprolol 50 mg qdnorvasc 5 mg qdlasix 40 mg qdentresto 24-26 mg bidmonitor bp and need titrate Mixed hyperlipidemia 267 653872 E78.2 lipitor 40 mg qdcontinue d Congestive heart failure 85120347 I50.22 EF=35%lasi x 40 mg qdentresto 24-26 mg bidmonitor respirator y and fluid status [id number] [place] SQUIRES [address] [place] [address] [place] [address] 10/04/2024 10:50:42 10/27/2024 08:10:53 Chronic obstructive pulmonary disease 97090734 J44.1 stable O2 dependentm onitor respirator y statusCont prednisone 5mg qdpulmonar y eval prn Nontraumat ic intraparenchymal cerebral hemorrhage 8107893197 19103 I61.8 stablerece ntly discharged from hospital for right Intraparen chymal hemorrhage with mild left hemiparesi s and dysarthria on dischargem aintained onxarelto 20 mg qdkeppra 1500 mg bidcoordin ate with neuro as needed Atrial fibrillation 4943 6004 I48.0 HR controlled Xarelto 20 mg qdamiodaro ne 200 mg qdmetoprol ol 50 mg qdmonitor for rate control Coronary arteriosclerosis 45462760 I25.10 stablelipi tor 40 mg qdmetoprol ol 50 mg qdmonitor for sx Essential hypertension 79235467 I10 stablemeto prolol 50 mg qdnorvasc 5 mg qdlasix 40 mg qdentresto 24-26 mg bidmonitor bp and need titrate Congestive heart failure 82411699 I50.22 stable euvolemicE F=35%lasix 40 mg qdentresto 24-26 mg bidmonitor respirator y and fluid status [id number] KIAN RODRIGUEZ, MEDARDO [address] [place] [address] 10/07/2024 08:46:35 10/09/2024 08:38:44 Chronic obstructive pulmonary disease 73736040 J44.1 now on prednisone 10 mg daily. Will taper down to 5 mg daily and will reassess.C ontinue neb QID.Contin ue monitor respirator y status.pul monary eval prn.Will check lab, CBC, CMP tomorrow. Nontraumat ic intraparenchymal cerebral hemorrhage 2558337802 72256 I61.8 see HPIrecentl y discharged from hospital for right Intraparen chymal hemorrhage with mild left hemiparesi s and dysarthria on discharge. Stable now.mainta ined onxarelto 20 mg qdkeppra 750 mg bidcoordin ate with neuro as needed Asthenia 14898726 R53.1 Improving. Continue PT OT, PRN eval and treatmonit or fall risk and need for increased support in community Dysphagia 30793219 I69.2 91 Resolved.I s currently is on regular diet, no coughing or chocking reported. Atrial fibrillation 4943 6004 I48.0 HR stable.Xar elto 20 mg qdamiodaro ne 200 mg qdmetoprol ol 50 mg qdmonitor for rate control Coronary arteriosclerosis 82660333 I25.10 lipitor 40 mg qdmetoprol ol 50 mg qdmonitor for sx Alcohol dependence 73808 003 F10.20 added to PMHcontinu e thiaminemo nitor need for increased support in community Tobacco user 658583054 Z 72.0 added to PM[place] ge quittingco ntinue nicotine supplement Essential hypertension 22865717 I10 metoprolol 50 mg qdnorvasc 5 mg qdlasix 40 mg qdentresto 24-26 mg bidmonitor bp and need titrate Mixed hyperlipidemia 267 525091 E78.2 lipitor 40 mg qdcontinue d Congestive heart failure 25889628 I50.22 EF=35%Pt is euvolemic, but gained 14 lb over a month.? volume overload or due to high dose of prednisone .continuel asix 40 mg qdentresto 24-26 mg bidmonitor respirator y and fluid statuswill monitor wt weekly.Sabas l check labs tomorrow. [id number] KIAN RODRIGUEZ, MEDARDO [address] [address] 10/14/2024 09:50:34 10/21/2024 11:35:43 Chronic obstructive pulmonary disease 25755945 J44.1 now on prednisone 5 mg daily, Will taper down to 2.5 mg daily and will reassess.w bc trending down.Keiry nue neb.Contin ue monitor respirator y status.pul monary eval prn.Will check lab weekly. Nontraumat ic intraparenchymal cerebral hemorrhage 6229693644 35776 I61.8 see HPIrecentl y discharged from hospital for right Intraparen chymal hemorrhage with mild left hemiparesi s and dysarthria on discharge. Stable now.mainta ined onxarelto 20 mg qdkeppra 750 mg bidcoordin ate with neuro as needed Asthenia 75025586 R53.1 Improving. Continue PT OT, PRN eval and treatmonit or fall risk and need for increased support in community Dysphagia 21616378 I69.2 91 Resolved.I s currently is on regular diet, no coughing or chocking reported. Atrial fibrillation 4943 6004 I48.0 HR stable.Xar elto 20 mg qdamiodaro ne 200 mg qdmetoprol ol 50 mg qdmonitor for rate control Coronary arteriosclerosis 69518228 I25.10 lipitor 40 mg qdmetoprol ol 50 mg qdmonitor for sx Alcohol dependence 61361 003 F10.20 added to PMHcontinu e thiaminemo nitor need for increased support in community Tobacco user 332744884 Z 72.0 added to PMH[place] ge quittingco ntinue nicotine supplement Essential hypertension 02938260 I10 BP stable.met oprolol 50 mg qdnorvasc 5 mg qdlasix 40 mg qdentresto 24-26 mg bidmonitor bp and need titrate Mixed hyperlipidemia 267 079440 E78.2 lipitor 40 mg qdcontinue d Congestive heart failure 63906093 I50.22 EF=35%Pt is euvolemic, but gained 14 lb over a month.? volume overload or due to high dose of prednisone .continuel asix 40 mg qdentresto 24-26 mg bidmonitor respirator y and fluid statuswill monitor wt weekly.Sabas l check labs tomorrow. [id number] KIAN RODRIGUEZ, [address] [address] 10/21/2024 09:10:50 10/27/2024 08:23:45 Chronic obstructive pulmonary disease 96119678 J44.1 Stable, no exacerbati on noted.Pred nisone tapered down to 2.5 mg now, and will tapered to 1 mg daily for 5 days and then stop.wbc trending down.will change neb treatment as PRN.Contin ue monitor respirator y status.pul monary eval prn.Will check lab weekly. Nontraumat ic intraparenchymal cerebral hemorrhage 0988613865 12823 I61.8 see HPIrecentl y discharged from hospital for right Intraparen chymal hemorrhage with mild left hemiparesi s and dysarthria on discharge. Stable now.mainta ined onxarelto 20 mg qdkeppra 750 mg bidcoordin ate with neuro as needed Asthenia 60902409 R53.1 Improving. Continue PT OT, PRN eval and treatmonit or fall risk and need for increased support in community Dysphagia 37933678 I69.2 91 Resolved.I s currently is on regular diet, no coughing or chocking reported. Atrial fibrillation 4943 6004 I48.0 HR stable.Xar elto 20 mg qdamiodaro ne 200 mg qdmetoprol ol 50 mg qdmonitor for rate control Coronary arteriosclerosis 36540708 I25.10 lipitor 40 mg qdmetoprol ol 50 mg qdmonitor for sx Alcohol dependence 36328 003 F10.20 added to PMHcontinu e thiaminemo nitor need for increased support in community Tobacco user 033567430 Z 72.0 added to PMH[place] ge quittingco ntinue nicotine supplement Essential hypertension 33020222 I10 BP stable.met oprolol 50 mg qdnorvasc 5 mg qdlasix 40 mg qdentresto 24-26 mg bidmonitor bp and need titrate Mixed hyperlipidemia 267 971695 E78.2 lipitor 40 mg qdcontinue d Congestive heart failure 32199126 I50.22 EF=35%Pt is euvolemic, but gained 14 lb over a month.? volume overload or due to high dose of prednisone .continuel asix 40 mg qdentresto 24-26 mg bidmonitor respirator y and fluid statuswill monitor wt weekly.Sabas l check labs tomorrow. [id number] KIAN RODRIGUEZ, [employer] [address] [address] 10/28/2024 09:19:53 11/03/2024 11:20:44 Chronic obstructive pulmonary disease 74930080 J44.1 Stable, no exacerbati on noted.Pred nisone tapered down and completed yesterday. wbc trending down.He has been using neb treatment as PRN.Contin ue monitor respirator y status.ref er to pulmonary for evalWill check lab weekly. Nontraumat ic intraparenchymal cerebral hemorrhage 4161960099 61257 I61.8 see HPIrecentl y discharged from hospital for right Intraparen chymal hemorrhage with mild left hemiparesi s and dysarthria on discharge. Stable now.mainta ined onxarelto 20 mg qdkeppra 750 mg bidcoordin ate with neuro as needed Asthenia 80790797 R53.1 Improving. Continue PT OT, PRN eval and treatmonit or fall risk and need for increased support in community Atrial fibrillation 4943 6004 I48.0 HR stable.Xar elto 20 mg qdamiodaro ne 200 mg qdmetoprol ol 50 mg qdmonitor for rate control Coronary arteriosclerosis 85958159 I25.10 lipitor 40 mg qdmetoprol ol 50 mg qdmonitor for sx Alcohol dependence 30070 003 F10.20 added to PMHcontinu e thiaminemo nitor need for increased support in community Tobacco user 796898116 Z 72.0 added to PMHenc[place] ge quittingco ntinue nicotine supplement Essential hypertension 97803809 I10 BP stable.met oprolol 50 mg qdnorvasc 5 mg qdlasix 40 mg qdentresto 24-26 mg bidmonitor bp and need titrate Mixed hyperlipidemia 267 041108 E78.2 lipitor 40 mg qdcontinue d Congestive heart failure 18547780 I50.22 EF=35%Pt is euvolemic, but gained 14 lb over a month.? volume overload or due to high dose of prednisone .continuel asix 40 mg qdentresto 24-26 mg bidmonitor respirator y and fluid statuswill monitor wt weekly.Sabas l check labs tomorrow. [id number] KIAN RODRIGUEZ, [employer] [address] [address] 11/04/2024 09:35:19 11/06/2024 14:11:01 Chronic obstructive pulmonary disease 49628897 J44.1 Stable, no exacerbati on noted.Pred nisone tapered down and completed last week.wbc trending down.He has been using neb treatment as PRN.Contin ue monitor respirator y status.pul monary evaluation scheduled. Will check lab weekly. Nontraumat ic intraparenchymal cerebral hemorrhage 3667554171 93560 I61.8 see HPIrecentl y discharged from hospital for right Intraparen chymal hemorrhage with mild left hemiparesi s and dysarthria on discharge. Stable now.mainta ined onxarelto 20 mg qdkeppra 750 mg bidcoordin ate with neuro as needed Asthenia 95688360 R53.1 Improving. Continue PT OT, PRN eval and treatmonit or fall risk and need for increased support in community Atrial fibrillation 4943 6004 I48.0 HR stable.Xar elto 20 mg qdamiodaro ne 200 mg qdmetoprol ol 50 mg qdmonitor for rate control Coronary arteriosclerosis 22006431 I25.10 lipitor 40 mg qdmetoprol ol 50 mg qdmonitor for sx Alcohol dependence 06279 003 F10.20 added to PMHcontinu e thiaminemo nitor need for increased support in community Tobacco user 547155313 Z 72.0 added to PMHenc[place] ge quittingco ntinue nicotine supplement Essential hypertension 15724577 I10 BP stable.met oprolol 50 mg qdnorvasc 5 mg qdlasix 40 mg qdentresto 24-26 mg bidmonitor bp and need titrate Mixed hyperlipidemia 267 269868 E78.2 lipitor 40 mg qdcontinue d Congestive heart failure 51776765 I50.22 EF=35%Pt is euvolemic, but gained 14 lb over a month.? volume overload or due to high dose of prednisone .continuel asix 40 mg qdentresto 24-26 mg bidmonitor respirator y and fluid statuswill monitor wt weekly.car diology f/u scheduled today. [id number] Esa Rodrigues MD [address] [address] 11/09/2024 11:22:44 11/11/2024 14:10:04 Acute kidney injury 74608032 N17.8 see HPI question due to diuresisno w metolazone has been discontinu eddischarg ed on torsemide 20 mg with frequency to be confirmed with hospital - monitor need to increase to BIDwill change to q day and monitor weightsdis cussed with nursing Normocytic anemia 765478 002 D64.9 acute on chronic anemianow on iron 325 mg m/w/fto f/u with GI out patient with no bleeding source foundhx need for iron infusionmo nitor cbcheme eval prnof note remains on xarelto Congestive heart failure 96961265 I50.22 now ontorsemid e 20 mg qdentresto 24-26 mg bidmonitor respirator y and fluid statusupda te cards with concerns Chronic ob structive pulmonary disease 19140993 J44.1 recent need for prednisone utilizatio nmonitor respirator y statuspulm onary eval prn Nontraumat ic intraparenchymal cerebral hemorrhage 4874620514 47158 I61.8 prior right Intraparen chymal hemorrhage with mild left hemiparesi s and dysarthria on dischargem aintained onxarelto 20 mg qdkeppra 750 mg bidcoordin ate with neuro as needed Asthenia 40293142 R53.1 PT OT eval and treatmonit or fall risk and need for increased support in community Dysphagia 39165807 I69.2 91 monitor aspiration risk and need to further adjust diet Atrial fibrillation 4943 6004 I48.0 Xarelto 20 mg qdamiodaro ne 200 mg qdmetoprol ol 12.5 mg qdmonitor for rate control Coronary arteriosclerosis 10727598 I25.10 lipitor 40 mg qdmetoprol ol 12.5 mg qdmonitor for sx Essential hypertension 21811302 I10 see HPI with changes now onmetoprol ol 12.5 mg qdtorsemid e 20 mg qd - pending confirmati on from [facility] trest 24-26 mg bidmonitor bp and need titrate Mixed hyperlipidemia 267 938867 E78.2 lipitor 40 mg qdcontinue d Health Concerns Section Related Observation LastModified by Organization Detai ls LastModified Time None Recorded Concern Status LastModified by Organization Details LastModified Time None Recorded Advance Directives Directive N: Payers Insurance Date Sequence Insurance Name Policy Number Policy Rogers Covered Member ID Rogers Member ID Guarantor Name 11/09/2024 2 [place] [facility] Dwaine Orellana [id number] Dwaine Orellana 11/09/2024 1 [place]IC[place] B[place] [employer] Dwaine Orellana [id number] Dwaine Orellana Notes Date Note Type Note [...] htn, hld, chf EF=35%, copd. KIAN RODRIGUEZ, [employer] [address] [facility], [address], [place], [address], [facility] [email or web address] 10/14/2024 10:14:44 10/21/2024 text/html This is a [...] chf EF=35%, copd. KIAN RODRIGUEZ CNP [address] [facility], [address], [place], [address], [facility] 10/21/2024 10:05:50 10/28/2024 text/html This is a [...] chf EF=35%, copd. KIAN RODRIGUEZ CNP [address] [facility], [address], [place], [address], [facility] 10/28/2024 10:41:17 11/04/2024 text/html This is [...] chf EF=35%, copd. KIAN RODRIGUEZ CNP [address] [facility], [address], [place], [address], [facility] 11/04/2024 10:05:56 11/09/2024 text/html Patient is [...] maintained on xarelto Esa Rodrigues MD [address] [facility], [address], [place], [address], [facility] 11/09/2024 11:52:00
--- OUTSIDE RECORDS SUMMARY | 2025-01-11 14:50 | XMS_ITS | Clinical Summary ---
Author Organization [facility] Address [address] [place] [id number] Care Team Providers Care [employer] Name Role Phone Marlene Harden NP Primary Care Provider [phone] Social History Tobacco Use Types Packs/Day Years Used Date Smoking Tobacco: Never Assessed Sex and Gender Information Value Date Recorded Sex Assigned at Not on file Legal Sex Male 11:27 AM EDT Gender Identity Not on file Sexual Orientation Not on file Plan of Treatment Health Maintenance Due Date Last Done Comments Pneumococcal Vaccine: 50+ Ye ars (1 of 2 - PCV) 1982 Colorectal Cancer Screening: Annual FOBT 2012 Colorectal Cancer Screening: Colonoscopy 2012 Colorectal Cancer Screening: Sigmoidoscopy 2012 Influenza Vaccine (Season Ended) 2025 05/05/20 22 Hepatitis B Vaccine Aged Out No longe r eligible based on patient's age to complete this topic Insurance [facility] Plan Care Teams [employer] Relationship Specialty Start Date End Date Marlene Harden NP [address] [place] [id number] PCP - General Nurse Practitioner 03/05/23
== END 2025-01-11 14:21 | disposition home or self-care (01) ==
LOC: HO.MMNH1L 14:20
PROVIDERS: Visit Provider Family Medicine
DX: J96.21 Acute and chronic respiratory failure with hypoxia (principal); J44.1 Chronic obstructive pulmonary disease with (acute) exacerbation; E46 Unspecified protein-calorie malnutrition
CPT/HCPCS: 36415; 80048; 85025

== ENCOUNTER 2025-01-18 06:32 | Outpatient (REF) | payer MEDICARE, SELFPAY ==
[2025-01-18 06:27] LABS: MANUAL DIFF FLAG NO
--- OUTSIDE RECORDS SUMMARY | 2025-01-18 06:34 | XMS_ITS | Data Portability ---
Author Organization [facility], Main Office Address [address] [address] [address] [place] [address] Care Team Providers Care Facilitator Name Role Phone DENISE GONZALEZ Primary Care Provider [phone] MARELY DE LEON 1ST FLOOR OTHER Assessment [...] Time Nontraumati c intraparenc hymal cerebral hemorrhage [id number] 03 Active 2024 Esa Rodrigues MD [address] [facility], [address], [place], [address] , [facility] 02/07/202 5 11:08:30 Chronic obstructive pulmonary disease 43464109 Active 2024 Esa Rodrigues MD [address], [address], [place], [address], [facility] 5 11:08:49 Dysphagia 14472853 Active 2024 Esa Rodrigues MD [address], [address], [place], [address], [facility] 5 11:09:20 Atrial fibrillatio n 20389217 Active 2024 Esa Rodrigues MD [address], [address], [place], [address], [facility] 5 11:11:53 Coronary arterioscle rosis 83392645 Active 2024 Esa Rodrigues MD [address], [address], [place], [address], [facility] 5 11:11:58 Alcohol dependence 57592094 Active 2024 Esa Rodrigues MD [address], [address], [place], [address], [facility] 5 11:12:38 Tobacco user 662428189 Active 2024 Esa Rodrigues MD [address], [address], [place], [address], [facility] 5 11:12:43 Essential hypertensio n 43290288 Active 2024 Esa Rodrigues MD [address], [address], [place], [address], [facility] 5 11:12:48 Mixed hyperlipide micaela 953110418 Active 2024 Esa Rodrigues MD [address], [address], [place], [address], [facility] 5 11:12:56 Congestive heart failure 98683513 Active 2024 Esa Rodrigues MD [address], [address], [place], [address], [email or web address] 5 11:13:02 Problem Notes None recorded. Medical Equipment None Reported. Allergies Allergen ID Allergen Name Allergen Category Reaction Reaction Severity Criticality Documentation Date Start Date Code Code System Note Provider Name and Address Organization Details Recorded Time 45719 Product containin g penicilli n (product) medicatio n Not available Not available Not available 08/14/2024 03397 8001 SNOMED Esa Rodrigues MD [address] [place] [address], [address], [email or web address] 5 11:22:28 79829 shellfish derived food,[facility] cation Not available Not available Not available 08/14/2024 07572 UNK Esa Rodrigues MD [address] [place] [address], [address] , [email or web address] 5 11:22:49 Medications Not known to be on any medication Vitals Date Recorded Heart rate Respiratory rate Body temperature Oxygen saturation Oxygen saturation in Arterial blood by Pulse oximetry Inhaled oxygen flow rate Systolic And Diastolic Provider Name and Address Organization Details Last Updated DateTime 5 60 /min 18 /min 98.7 [degF] 98 % 98 % 2 L/min 136/75 mm[Hg] KIAN RODRIGUEZ CNP [address] [place] [address], [address] [place], [place] [facility] 5 10:14:04 Date Recorded Body weight Heart rate Respiratory rate Body temperature Oxygen saturation Oxygen saturation in Arterial blood by Pulse oximetry Inhaled oxygen flow rate Systolic And Diastolic Provider Name and Address Organization Details Last Updated DateTime 5 59094.1 9 g 70 /min 18 /min 98.1 [degF] 96 % 96 % 2 L/min 143/74 mm[Hg] KIAN RODRIGUEZ CNP [address] [place] [address], [address] , [place] [facility] 5 09:55:08 Date Recorded Body weight Heart rate Respiratory rate Body temperature Oxygen saturation Oxygen saturation in Arterial blood by Pulse oximetry Inhaled oxygen flow rate Systolic And Diastolic Provider Name and Address Organization Details Last Updated DateTime 5 62368.7 g 58 /min 18 /min 98.1 [degF] 94 % 94 % 2 L/min 110/63 mm[Hg] KIAN RODRIGUEZ CNP [address] [facility], [address], [place], [address], [facility] 09:37:59 Date Recorded Systolic And Diastolic Provider Name and Address Organization Details Last Updated DateTime 11/09/2024 135/64 mm[Hg] Esa Rodrigues MD [address] [facility] [address], [place], [address], [email or web address] 11/09/2024 11:23:22 Date Recorded Heart rate Systolic And Diastolic Provider Name and Address Organization Details Last Updated DateTime 11/11/2024 87 /min 116/67 mm[Hg] KIAN RODRIGUEZ CNP [address] [facility], [facility] [address], [place], [address], [facility] 11/11/2024 10:11:22 Social History Question Answer Notes LastModified by Organizat ion Details LastModified Time Tobacco Smoking Status Current Every Day Smoker Esa Rodrigues MD [address] [facility] [address], [place], [address], [facility] 08/14/2024 11:21:57 Do You Have An [...] Recorded Time Tdap 09/28/2016 completed Pattie cabrales [email or web address] 08/14/2024 16:05:11 SARS-COV-2 (COVID-19) vaccine, UNSPECIFIED 11/29/2020 completed Pattie cabrales [email or web address] 08/14/2024 16:05:29 Past Encounters Encounter ID Performer Location Encounter Start Date Encounter Closed Date Diagnosis/Indication Diagnosis SNOMED-CT Code Diagnosis ICD10 Code Diagnosis Note [id number] MD SHANNEN Vides [address] [place], [place] [address] 08/14/2024 10:59:15 08/17/2024 16:18:46 Nontraumatic intraparenchymal cerebral hemorrhage [id number] 21432 I61.8 see HPIrecentl y discharged from hospital [...] on 08/26 Chronic ob structive pulmonary disease 32866292 J44.1 restart qid duonebsmon itor respirator y statuscomp lete prednisone coursecoor dinate with respirator y at facilitypu lmonary eval prn Respirator y syncytial virus infection 02204521 B97.4 see above Asthenia 84987916 R53.1 PT OT eval and treatmonit or fall risk and need for increased support in community Dysphagia 88833794 I69.2 91 monitor aspiration risk and need to further adjust diet Atrial fibrillation 4943 6004 I48.0 Xarelto on hold due to aboveamiod arone 200 mg qdasa 81 mg qd through 08/26metopr olol 50 mg qdmonitor for rate control Coronary arteriosclerosis 85976236 I25.10 lipitor 40 mg qdmetoprol ol 50 mg qdmonitor for sx Alcohol dependence 20986 003 F10.20 added to PMHcontinu e thiaminemo nitor need for increased support in community Tobacco user 643521448 Z 72.0 added to PMH[place] ge quittingco ntinue nicotine supplement Essential hypertension 76854779 I10 metoprolol 50 mg qdlasix 40 mg qdlisinopr il 10 mg qdentresto 24-26 mg bidmonitor bp and need titrate Mixed hyperlipidemia 267 794221 E78.2 lipitor 40 mg qdcontinue d Congestive heart failure 06534518 I50.22 EF=35%lasi x 40 mg qdentresto 24-26 mg bidmonitor respirator y and fluid status [id number] URIEL AGUIRRE [address] [place] [address] 08/19/2024 13:34:52 08/20/2024 13:07:58 Nontraumatic intraparenchymal cerebral hemorrhage 7024884545 66852 I61.8 continue ASA 08/05 through 08/26 with f/u neuro in place.Cont inued on dysphagia diet and continued on keppra 750 mg bid with plan to reassess ability to restart xarelto on 08/26neuros intact Chronic ob structive pulmonary disease 42493706 J44.1 continue duonebs QIDmonitor respirator y statuspulm nurse to followlung sounds still coarse Respirator y syncytial virus infection 77794119 B97.4 improving slowly [id number] URIEL REDDYDIVYA [address] [address] 08/24/2024 09:32:25 08/25/2024 12:01:07 Nontraumatic intraparenchymal cerebral hemorrhage 1302948110 28333 I61.8 continue ASA 08/05 through 08/26 with f/u neuro in place.Cont inued on dysphagia diet and continued on keppra 750 mg bid with plan to reassess ability to restart xarelto on 08/26 Chronic ob structive pulmonary disease 85888680 J44.1 continue duonebs QID Respirator y syncytial virus infection 35301618 B97.4 resolved Asthenia 96472043 R53.1 baselineVN A Outpt Atrial fibrillation 4943 6004 I48.0 Xarelto on hold due to aboveamiod arone 200 mg qdasa 81 mg qd through 08/26 then restart xareltomet oprolol 50 mg qd Coronary arteriosclerosis 06520443 I25.10 lipitor 40 mg qdmetoprol ol 50 mg qd Alcohol dependence 55359 003 F10.20 continue thiamine Tobacco user 312599201 Z 72.0 added to PM[place] ge quittingco ntinue nicotine supplement Essential hypertension 56134347 I10 metoprolol 50 mg qdlasix 40 mg qdlisinopr il 10 mg qdentresto 24-26 mg bid Mixed hyperlipidemia 267 689458 E78.2 lipitor 40 mg qd Congestive heart failure 42449640 I50.22 EF=35%lasi x 40 mg qdentresto 24-26 mg bid [id number] MD MARELY Vides [address] [place] [address] [place] [address] 09/02/2024 09:13:06 09/07/2024 15:57:48 Nontraumatic intraparenchymal cerebral hemorrhage 5210601404 77784 I61.8 see HPIrecentl y discharged from hospital for right Intraparen chymal hemorrhage with mild left hemiparesi s and dysarthria on dischargem aintained onxarelto 20 mg qdkeppra 1500 mg bidcoordin ate with neuro as needed Chronic ob structive pulmonary disease 69479263 J44.1 monitor neb utilizatio n and respirator y statusnow onpredniso ne 60 mg qdwill decrease by 10 mg q 5 days till at 10 mg then reassesspu lmonary eval prn Asthenia 02924447 R53.1 PT OT eval and treatmonit or fall risk and need for increased support in community Dysphagia 77744499 I69.2 91 monitor aspiration risk and need to further adjust diet Atrial fibrillation 4943 6004 I48.0 Xarelto 20 mg qdamiodaro ne 200 mg qdmetoprol ol 50 mg qdmonitor for rate control Coronary arteriosclerosis 80930479 I25.10 lipitor 40 mg qdmetoprol ol 50 mg qdmonitor for sx Alcohol dependence 87244 003 F10.20 added to PMHcontinu e thiaminemo nitor need for increased support in community Tobacco user 211964173 Z 72.0 added to [place] quittingco ntinue nicotine supplement Essential hypertension 08011217 I10 metoprolol 50 mg qdnorvasc 5 mg qdlasix 40 mg qdentresto 24-26 mg bidmonitor bp and need titrate Mixed hyperlipidemia 267 109357 E78.2 lipitor 40 mg qdcontinue d Congestive heart failure 41549875 I50.22 EF=35%lasi x 40 mg qdentresto 24-26 mg bidmonitor respirator y and fluid status [id number] [place] SQUIRES [address] [place] [address] [place] [address] 10/04/2024 10:50:42 10/27/2024 08:10:53 Chronic obstructive pulmonary disease 63562881 J44.1 stable O2 dependentm onitor respirator y statusCont prednisone 5mg qdpulmonar y eval prn Nontraumat ic intraparenchymal cerebral hemorrhage 2054892220 19103 I61.8 stablerece ntly discharged from hospital for right Intraparen chymal hemorrhage with mild left hemiparesi s and dysarthria on dischargem aintained onxarelto 20 mg qdkeppra 1500 mg bidcoordin ate with neuro as needed Atrial fibrillation 4943 6004 I48.0 HR controlled Xarelto 20 mg qdamiodaro ne 200 mg qdmetoprol ol 50 mg qdmonitor for rate control Coronary arteriosclerosis 25475993 I25.10 stablelipi tor 40 mg qdmetoprol ol 50 mg qdmonitor for sx Essential hypertension 76937235 I10 stablemeto prolol 50 mg qdnorvasc 5 mg qdlasix 40 mg qdentresto 24-26 mg bidmonitor bp and need titrate Congestive heart failure 07490959 I50.22 stable euvolemicE F=35%lasix 40 mg qdentresto 24-26 mg bidmonitor respirator y and fluid status [id number] KIAN RODRIGUEZ, MEDARDO [address] [place] [address] 10/07/2024 08:46:35 10/09/2024 08:38:44 Chronic obstructive pulmonary disease 73528192 J44.1 now on prednisone 10 mg daily. Will taper down to 5 mg daily and will reassess.C ontinue neb QID.Contin ue monitor respirator y status.pul monary eval prn.Will check lab, CBC, CMP tomorrow. Nontraumat ic intraparenchymal cerebral hemorrhage [id number] 77393 I61.8 see HPIrecentl y discharged from hospital for right Intraparen chymal hemorrhage with mild left hemiparesi s and dysarthria on discharge. Stable now.mainta ined onxarelto 20 mg qdkeppra 750 mg bidcoordin ate with neuro as needed Asthenia 11859425 R53.1 Improving. Continue PT OT, PRN eval and treatmonit or fall risk and need for increased support in community Dysphagia 46243971 I69.2 91 Resolved.I s currently is on regular diet, no coughing or chocking reported. Atrial fibrillation 4943 6004 I48.0 HR stable.Xar elto 20 mg qdamiodaro ne 200 mg qdmetoprol ol 50 mg qdmonitor for rate control Coronary arteriosclerosis 91486136 I25.10 lipitor 40 mg qdmetoprol ol 50 mg qdmonitor for sx Alcohol dependence 50204 003 F10.20 added to PMHcontinu e thiaminemo nitor need for increased support in community Tobacco user 290225835 Z 72.0 added to PM[place] ge quittingco ntinue nicotine supplement Essential hypertension 34010657 I10 metoprolol 50 mg qdnorvasc 5 mg qdlasix 40 mg qdentresto 24-26 mg bidmonitor bp and need titrate Mixed hyperlipidemia 267 371717 E78.2 lipitor 40 mg qdcontinue d Congestive heart failure 88121255 I50.22 EF=35%Pt is euvolemic, but gained 14 lb over a month.? volume overload or due to high dose of prednisone .continuel asix 40 mg qdentresto 24-26 mg bidmonitor respirator y and fluid statuswill monitor wt weekly.[place] check labs tomorrow. [id number] KIAN RODRIGUEZ, MEDARDO [address] [address] 10/14/2024 09:50:34 10/21/2024 11:35:43 Chronic obstructive pulmonary disease 40312161 J44.1 now on prednisone 5 mg daily, Will taper down to 2.5 mg daily and will reassess.w bc trending down.Keiry nue neb.Contin ue monitor respirator y status.pul monary eval prn.Will check lab weekly. Nontraumat ic intraparenchymal cerebral hemorrhage 3439750721 62891 I61.8 see HPIrecentl y discharged from hospital for right Intraparen chymal hemorrhage with mild left hemiparesi s and dysarthria on discharge. Stable now.mainta ined onxarelto 20 mg qdkeppra 750 mg bidcoordin ate with neuro as needed Asthenia 28770151 R53.1 Improving. Continue PT OT, PRN eval and treatmonit or fall risk and need for increased support in community Dysphagia 97144891 I69.2 91 Resolved.I s currently is on regular diet, no coughing or chocking reported. Atrial fibrillation 4943 6004 I48.0 HR stable.Xar elto 20 mg qdamiodaro ne 200 mg qdmetoprol ol 50 mg qdmonitor for rate control Coronary arteriosclerosis 27805834 I25.10 lipitor 40 mg qdmetoprol ol 50 mg qdmonitor for sx Alcohol dependence 06166 003 F10.20 added to PMHcontinu e thiaminemo nitor need for increased support in community Tobacco user 135575947 Z 72.0 added to PM[place] ge quittingco ntinue nicotine supplement Essential hypertension 68314952 I10 BP stable.met oprolol 50 mg qdnorvasc 5 mg qdlasix 40 mg qdentresto 24-26 mg bidmonitor bp and need titrate Mixed hyperlipidemia 267 566283 E78.2 lipitor 40 mg qdcontinue d Congestive heart failure 38596893 I50.22 EF=35%Pt is euvolemic, but gained 14 lb over a month.? volume overload or due to high dose of prednisone .continuel asix 40 mg qdentresto 24-26 mg bidmonitor respirator y and fluid statuswill monitor wt weekly.[place] check labs tomorrow. [id number] KIAN RODRIGUEZ, [address] [address] 10/21/2024 09:10:50 10/27/2024 08:23:45 Chronic obstructive pulmonary disease 99018079 J44.1 Stable, no exacerbati on noted.Pred nisone tapered down to 2.5 mg now, and will tapered to 1 mg daily for 5 days and then stop.wbc trending down.will change neb treatment as PRN.Contin ue monitor respirator y status.pul monary eval prn.Will check lab weekly. Nontraumat ic intraparenchymal cerebral hemorrhage 1316201947 41085 I61.8 see HPIrecentl y discharged from hospital for right Intraparen chymal hemorrhage with mild left hemiparesi s and dysarthria on discharge. Stable now.mainta ined onxarelto 20 mg qdkeppra 750 mg bidcoordin ate with neuro as needed Asthenia 95614942 R53.1 Improving. Continue PT OT, PRN eval and treatmonit or fall risk and need for increased support in community Dysphagia 51069641 I69.2 91 Resolved.I s currently is on regular diet, no coughing or chocking reported. Atrial fibrillation 4943 6004 I48.0 HR stable.Xar elto 20 mg qdamiodaro ne 200 mg qdmetoprol ol 50 mg qdmonitor for rate control Coronary arteriosclerosis 71007371 I25.10 lipitor 40 mg qdmetoprol ol 50 mg qdmonitor for sx Alcohol dependence 85064 003 F10.20 added to PMHcontinu e thiaminemo nitor need for increased support in community Tobacco user 895354983 Z 72.0 added to PMH[place] ge quittingco ntinue nicotine supplement Essential hypertension 16716225 I10 BP stable.met oprolol 50 mg qdnorvasc 5 mg qdlasix 40 mg qdentresto 24-26 mg bidmonitor bp and need titrate Mixed hyperlipidemia 267 431579 E78.2 lipitor 40 mg qdcontinue d Congestive heart failure 39514955 I50.22 EF=35%Pt is euvolemic, but gained 14 lb over a month.? volume overload or due to high dose of prednisone .continuel asix 40 mg qdentresto 24-26 mg bidmonitor respirator y and fluid statuswill monitor wt weekly.[place] check labs tomorrow. [id number] KIAN RODRIGUEZ, INSTRUMENT AND ELECTRICAL TECHNICIAN [address] [address] 10/28/2024 09:19:53 11/03/2024 11:20:44 Chronic obstructive pulmonary disease 08804715 J44.1 Stable, no exacerbati on noted.Pred nisone tapered down and completed yesterday. wbc trending down.He has been using neb treatment as PRN.Contin ue monitor respirator y status.ref er to pulmonary for evalWill check lab weekly. Nontraumat ic intraparenchymal cerebral hemorrhage 8836232696 53353 I61.8 see HPIrecentl y discharged from hospital for right Intraparen chymal hemorrhage with mild left hemiparesi s and dysarthria on discharge. Stable now.mainta ined onxarelto 20 mg qdkeppra 750 mg bidcoordin ate with neuro as needed Asthenia 73197767 R53.1 Improving. Continue PT OT, PRN eval and treatmonit or fall risk and need for increased support in community Atrial fibrillation 4943 6004 I48.0 HR stable.Xar elto 20 mg qdamiodaro ne 200 mg qdmetoprol ol 50 mg qdmonitor for rate control Coronary arteriosclerosis 94510677 I25.10 lipitor 40 mg qdmetoprol ol 50 mg qdmonitor for sx Alcohol dependence 96643 003 F10.20 added to PMHcontinu e thiaminemo nitor need for increased support in community Tobacco user 539821921 Z 72.0 added to PMH[place] ge quittingco ntinue nicotine supplement Essential hypertension 67245454 I10 BP stable.met oprolol 50 mg qdnorvasc 5 mg qdlasix 40 mg qdentresto 24-26 mg bidmonitor bp and need titrate Mixed hyperlipidemia 267 468138 E78.2 lipitor 40 mg qdcontinue d Congestive heart failure 06530734 I50.22 EF=35%Pt is euvolemic, but gained 14 lb over a month.? volume overload or due to high dose of prednisone .continuel asix 40 mg qdentresto 24-26 mg bidmonitor respirator y and fluid statuswill monitor wt weekly.[place] check labs tomorrow. [id number] KIAN RODRIGUEZ, INSTRUMENT AND ELECTRICAL TECHNICIAN [address] [address] 11/04/2024 09:35:19 11/06/2024 14:11:01 Chronic obstructive pulmonary disease 67220563 J44.1 Stable, no exacerbati on noted.Pred nisone tapered down and completed last week.wbc trending down.He has been using neb treatment as PRN.Contin ue monitor respirator y status.pul monary evaluation scheduled. Will check lab weekly. Nontraumat ic intraparenchymal cerebral hemorrhage 8976368910 24452 I61.8 see HPIrecentl y discharged from hospital for right Intraparen chymal hemorrhage with mild left hemiparesi s and dysarthria on discharge. Stable now.mainta ined onxarelto 20 mg qdkeppra 750 mg bidcoordin ate with neuro as needed Asthenia 56747367 R53.1 Improving. Continue PT OT, PRN eval and treatmonit or fall risk and need for increased support in community Atrial fibrillation 4943 6004 I48.0 HR stable.Xar elto 20 mg qdamiodaro ne 200 mg qdmetoprol ol 50 mg qdmonitor for rate control Coronary arteriosclerosis 06843277 I25.10 lipitor 40 mg qdmetoprol ol 50 mg qdmonitor for sx Alcohol dependence 72476 003 F10.20 added to PMHcontinu e thiaminemo nitor need for increased support in community Tobacco user 866995679 Z 72.0 added to PMHenc[place] ge quittingco ntinue nicotine supplement Essential hypertension 85198991 I10 BP stable.met oprolol 50 mg qdnorvasc 5 mg qdlasix 40 mg qdentresto 24-26 mg bidmonitor bp and need titrate Mixed hyperlipidemia 267 623188 E78.2 lipitor 40 mg qdcontinue d Congestive heart failure 99235747 I50.22 EF=35%Pt is euvolemic, but gained 14 lb over a month.? volume overload or due to high dose of prednisone .continuel asix 40 mg qdentresto 24-26 mg bidmonitor respirator y and fluid statuswill monitor wt weekly.car diology f/u scheduled today. [id number] Esa Rodrigues MD [address] [address] 11/09/2024 11:22:44 11/11/2024 14:10:04 Acute kidney injury 80021016 N17.8 see HPI question due to diuresisno w metolazone has been discontinu eddischarg ed on torsemide 20 mg with frequency to be confirmed with hospital - monitor need to increase to BIDwill change to q day and monitor weightsdis cussed with nursing Normocytic anemia 008104 002 D64.9 acute on chronic anemianow on iron 325 mg m/w/fto f/u with GI out patient with no bleeding source foundhx need for iron infusionmo nitor cbcheme eval prnof note remains on xarelto Congestive heart failure 25029440 I50.22 now ontorsemid e 20 mg qdentresto 24-26 mg bidmonitor respirator y and fluid statusupda te cards with concerns Chronic ob structive pulmonary disease 26613328 J44.1 recent need for prednisone utilizatio nmonitor respirator y statuspulm onary eval prn Nontraumat ic intraparenchymal cerebral hemorrhage 7812977704 83247 I61.8 prior right Intraparen chymal hemorrhage with mild left hemiparesi s and dysarthria on dischargem aintained onxarelto 20 mg qdkeppra 750 mg bidcoordin ate with neuro as needed Asthenia 64387149 R53.1 PT OT eval and treatmonit or fall risk and need for increased support in community Dysphagia 29152847 I69.2 91 monitor aspiration risk and need to further adjust diet Atrial fibrillation 4943 6004 I48.0 Xarelto 20 mg qdamiodaro ne 200 mg qdmetoprol ol 12.5 mg qdmonitor for rate control Coronary arteriosclerosis 02784067 I25.10 lipitor 40 mg qdmetoprol ol 12.5 mg qdmonitor for sx Essential hypertension 81319372 I10 see HPI with changes now onmetoprol ol 12.5 mg qdtorsemid e 20 mg qd - pending confirmati on from [facility] trest 24-26 mg bidmonitor bp and need titrate Mixed hyperlipidemia 267 552137 E78.2 lipitor 40 mg qdcontinue d Health Concerns Section Related Observation LastModified by Organization Detai ls LastModified Time None Recorded Concern Status LastModified by Organization Details LastModified Time None Recorded Advance Directives Directive N: Payers Insurance Date Sequence Insurance Name Policy Number Policy Rogers Covered Member ID Rogers Member ID Guarantor Name 11/09/2024 2 [place] [facility] Dwaine Orellana [id number] Dwaine Orellana 11/09/2024 1 [place] [employer] Dwaine Orellana [id number] Dwaine Orellana Notes Date Note Type Note [...] htn, hld, chf EF=35%, copd. KIAN RODRIGUEZ, INSTRUMENT AND ELECTRICAL TECHNICIAN [address] [facility], [address], [place], [address], [email or web address] 10/14/2024 10:14:44 10/21/2024 text/html This is a [...] chf EF=35%, copd. KIAN RODRIGUEZ CNP [address] [facility], [address], [place], [address], [facility] 10/21/2024 10:05:50 10/28/2024 text/html This is [...] chf EF=35%, copd. KIAN RODRIGUEZ CNP [address] [facility], [address], [place], [address], [facility] 10/28/2024 10:41:17 11/04/2024 text/html This is [...] chf EF=35%, copd. KIAN RODRIGUEZ CNP [address] [facility], [address], [place], [address], [facility] 11/04/2024 10:05:56 11/09/2024 text/html Patient is [...] maintained on xarelto Esa Rodrigues MD [address] [facility], [address], [place], [address], [facility] 11/09/2024 11:52:00
--- OUTSIDE RECORDS SUMMARY | 2025-01-18 06:34 | XMS_ITS | Clinical Summary ---
Author Organization [facility] Facility Address [address] [place] [id number] Care Team Providers Care Central Supply Worker Name Role Phone Marlene [place] NP Primary Care Provider [phone] Social History Tobacco Use Types Packs/Day Years [...] Colorectal Cancer Screening: Sigmoidoscopy 2012 Influenza Vaccine (#1) 2025 05/05/2022 Hepatitis B Vaccine Aged Out No longe r eligible based on patient's age to complete this topic Insurance [facility] Plan Care Teams Central Supply Worker Relationship Specialty Start Date End Date Marlene [place] NP [address] [place] [address] PCP - General Nurse Practitioner 03/05/23
[2025-01-18 07:12] LABS: Hematocrit 32.5 % (42.0-52.0); Hemoglobin 10.1 g/dl (14.0-18.0); Imm Gran Abs Auto 0.15 X10*3/uL (0.00-0.03); Imm Gran Pct Auto 1.6 % (0.0-0.4); Lymphocytes Absolute Auto 2.2 X10*3/uL (1.2-4.9); Mean Corpuscular HGB Conc 31.1 g/dl (31.0-36.0); Mean Corpuscular Hemoglobin 25.9 pg (27.0-33.0); Mean Corpuscular Volume 83.3 fL (80.0-98.0); NRBC Abs Auto 0.000 X10*3/uL (0.0-0.012); NRBC Pct Auto 0.0 /100WBC (0.0-0.2); Platelet Count 284 X10*3/uL (160-400); Red Blood Count 3.90 X10*6/uL (4.60-5.80); White Blood Count 9.3 X10*3/uL (4.8-10.8)
[2025-01-18 07:52] LABS: Anion Gap 13 (12-20); Blood Urea Nitrogen 19 mg/dL (9-16); Carbon Dioxide 28 mmol/L (22-29); Chloride 104 mmol/L (96-108); Potassium 3.6 mmol/L (3.3-5.1); Sodium 141 mmol/L (135-145)
[2025-01-18 07:53] LABS: Calcium 8.6 mg/dL (8.4-10.2); Estimated Glomerular Filt Rate 58
== END 2025-01-18 06:33 | disposition home or self-care (01) ==
LOC: HO.MMNH1L 06:32
PROVIDERS: Visit Provider Family Medicine
DX: J96.21 Acute and chronic respiratory failure with hypoxia (principal); J44.1 Chronic obstructive pulmonary disease with (acute) exacerbation; E46 Unspecified protein-calorie malnutrition
CPT/HCPCS: 36415; 80048; 85025

== ENCOUNTER 2025-01-22 05:46 | Outpatient (REF) | payer MEDICARE, SELFPAY ==
--- OUTSIDE RECORDS SUMMARY | 2025-01-22 05:48 | XMS_ITS | Encounter Summary ---
Author Organization [facility] Address [address] [facility] [address] [place] [phone] Phone Care Team Providers Care Cost Coordinator Name Role Phone Marlene [place] NP Primary Care Provider Unavaila Dennis Shields MBBS Unavailable Gabriela Barnhart WH[employer]ER P[employer]ER Unavailable Cj Meyer DO Primary Care Provider Reason for Referral * MRI/CAT Scan - Closed Specialty Diagnoses / Procedures Referred By Opal nolen Referred To Contact Radiology Diagnoses Cigarette smoker Procedures CT Chest Lung Cancer Screening Initial Or Annual Marlene [place] NP Referral ID Status Reason Start Date Expiration Date Visits Re quested Visits Authorized [id number] Closed 10/03/2023 10/02/2024 1 1 Encounter Details Date Type Department Care Team (Latest Contact Info) Description 10/03/2023 Transcribe Orders Virtual Department [address] [place] [address] Marlene [place] NP Cigarette smoker (Primary Dx) Social History Tobacco Use Types Packs/Day Years Used Date Smoking Tobacco: Every Day Cigarettes 0.5 48.8 Started: 03/28/1976 Smokeless Tobacco: Never Comments:Started using nicot ine patch and decreasing. As of pulmonology visit on 09/03/22, pt reported being down to half pack per day. Alcohol Use Standard Drinks/Week Comments Yes 21 (1 standard drink = 0.6 oz pu re alcohol) 3 nips daily Education Answer Date Recorded Are you interested in more education? Not on cornelius e 11/01/2022 Are you concerned about learning? Not on file 11/01/2022 No 11/01/2022 No 11/01/2022 Digital Access Answer Date Recorded No 12/03/2022 No 12/03/2022 Reliable internet access at home? Not on file 12/03/2022 Device with a working camera? Not on file Intimate Partner Violence Answer Date R ecorded Are you denied basic needs s uch as food, clothing, or medical care? No 08/21/2023 In the past 12 months have y ou been in a relationship with a person who hurts, threatens, or tries to control you? No 08/21/2023 Are you denied basic needs s uch as food, clothing, or medical care? No 08/21/2023 In the past 12 months have y ou been in a relationship with a person who hurts, threatens, or tries to control you? No 08/21/2023 Sex and Gender Information Value Date Recorded Sex Assigned at Male 02/20/2022 11:20 AM EDT Legal Sex Male 9:44 PM EDT Gender Identity Male 02/20/2022 11:20 AM EDT Sexual Orientation Straight 02/20/2022 11 :20 AM EDT documented as of this encounter Plan of Treatment Upcoming Encounters Date Type Department Care Team (Late st Contact Info) Description 01/22/2025 3:40 PM EDT Office Visit [facility] [address] [place] [address] [address]rd Floor, [address] [place] [address] Rehan Landaverde MD [address] [place] [phone] 03/16/2025 9:00 AM EDT Office Visit [facility] [address] [place] [address] Conner Sneed MD [address] [place] [address] [address] [place] [address] [email or web address] 03/29/2025 10:15 AM EDT Office Visit [facility] [address] [facility] 3rd Floor, [address] [place] [address] Zack Sanchez DO [address] [facility] [address] [place] [address] [email or web address] Scheduled Procedures Name Priority Associated Diagnoses Date/Ti me 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 Multiple pulmonary nodules. The category-determining solid nodule has a very low likelihood of becoming a clinically active cancer, due to size and/or lack of growth. There are potentially significant incidental finding(s): - severe amount of coronary calcifications - moderate emphysema RECOMMENDATIONS: Continue annual Lung Cancer Screening Chest CT examination if patient meets eligibility criteria. To order, please type CT CHEST SCREENING ([email or web address]) and select ANNUAL for patient program status. Recommendation for potentially significant incidental finding: follow up as clinically indicated. Explanation of the Lung-RADS categories can be found at: [email or web address] Narrative 11/08/2023 8:[address] CHEST LUNG CANCER SCREENING INITIAL Referring clinician's provided indication for this examination in [facility]: Lung Cancer Screening - CURRENT smoker (20+ pk-yrs, age 50-80) - ICD -10 F17.210; nicotine dependence TECHNIQUE: Low dose multidetector CT of the chest was performed without intravenous contrast using tailored dose modulation techniques. COMPARISON: 11/01/2022 FINDINGS: Devices/Tubes/Lines: None. Lungs: No new nodules Unchanged 6 mm nodule in the right middle lobe (4:279) Likely mucus plugging in the right lower lobe (4:313 Mild diffuse bronchial wall thickening and moderate centrilobular emphysema. Pleura: Normal. No pleural effusion or pneumothorax. Mediastinum: Heavy coronary artery calcifications. Lymph Nodes: No enlarged supraclavicular, axillary, mediastinal, or hilar lymph nodes. Upper Abdomen: Absence of intravenous contrast and low dose technique limits sensitivity for detecting small lesions, solid organ and vascular findings. No abnormality detected in the visualized upper abdomen. Chest Wall: No chest wall mass. Bones: No suspicious lytic or blastic lesions. Procedure Note Nemesio Young MD, [facility] - 11/08/2023 CT CHEST LUNG CANCER SCREENING INITIAL Referring clinician's provided indication for this examination in [facility]:Lung Cancer Screening - CURRENT smoker (20+ pk-yrs, age 50-80) - ICD -10F17.210; nicotine dependence TECHNIQUE: Low dose multidetector CT of the chest was performed withoutintravenous contrast using tailored dose modulation techniques. COMPARISON: 11/01/2022 FINDINGS: Devices/Tubes/Lines: None. Lungs: No new nodules Unchanged 6 mm nodule in the right middle lobe (4:279) Likely mucus plugging in the right lower lobe (4:313 Mild diffuse bronchial wall thickening and moderate centrilobularemphysema. Pleura: Normal. No pleural effusion or pneumothorax. Mediastinum: Heavy coronary artery calcifications. Lymph Nodes: No enlarged supraclavicular, axillary, mediastinal, or hilarlymph nodes. Upper Abdomen: Absence of intravenous contrast and low dose techniquelimits sensitivity for detecting small lesions, solid organ and vascularfindings. No abnormality detected in the visualized upper abdomen. Chest Wall: No chest wall mass. Bones: No suspicious lytic or blastic lesions. IMPRESSION: Lung-RADS Category: 2/S. Multiple pulmonary nodules. Thecategory-determining solid nodule has a very low likelihood of becoming aclinically active cancer, due to size and/or lack of growth. There are potentially significant incidental finding(s): - severe amount of coronary calcifications - moderate emphysema RECOMMENDATIONS: Continue annual Lung Cancer Screening Chest CT examination if patientmeets eligibility criteria. To order, please type CT CHEST SCREENING (CT.[email or web address]) and selectANNUAL for patient program status. Recommendation for potentially significant incidental finding: follow upas clinically indicated. Explanation of the Lung-RADS categories can be found at:[email or web address] Marlene Harden SETTER MOLDING AND COREMAKING MACHINES IMG CT CHEST Final Result documented in this encounter Visit Diagnoses Diagnosis Cigarette smoker- Primary Tobacco use disorder Cigarette smoker Tobacco use disorder documented in this encounter Additional Health Concerns Infection Onset Date Last Indicated Resolved Time CoV-Risk Comment:Per note documentation 07/17/2024 07/17/2024 8:52 AM EST CoV-Risk 08/08/2024 08/08/2024 08/19/2024 1:22 AM EST RSV 08/08/2024 08/08/2024 08/15/2024 1:22 AM EST CoV-Risk Comment:Per note documentation 08/29/2024 08/29/2024 7:27 AM EST Assessment Noted Time PHQ-2 Depression Total Score: 2 03/28/20 11:32 AM EDT documented as of this encounter Care Teams Cost Coordinator Relationship Specialty Start Date End Date Marlene H[place] NP PCP - General Family Medicine 01/10/22 08/07/24 Cj Meyer DO [address] [place] [id number] PCP - General Internal Medicine 08/08/24 Dennis Temple MBBS [email or web address] Primary Oncologist Hematology and Oncology 04/02/23 Gabriela Barnhart CNP [address] [place] [phone] [email or web address] Nurse Practitioner Medical Oncology 01/16/24 documented as of this encounter Additional Source Comments The information contained in this document represents components of the legal health record. It is not the complete legal health record.[facility]
--- OUTSIDE RECORDS SUMMARY | 2025-01-22 05:49 | XMS_ITS | Data Portability ---
Author Organization [facility], [facility] Address [address] [place] [address] Care Team Providers Care Cane Feeder Name Role Phone [facility] Pellet Machine Operator ADORE SY Primary Care Provider JR VARGAS Wastewater Process Engineer [phone] Assessment Encounter Date Assessment Date Assessment LastModified by Organization Details LastModified Time 02/26/2023 02/26/2023 Enhanced Provider time spent performing enhanced activities which may include, but are not limited to: reviewing tests, obtaining and/or reviewing patient history; ordering medications, test or procedures; EMR documentation; communication with patient, family, caregiver(s), VNA; pre-visit prep time communication with specialists, ER staff. Time spent: ____42____ (minutes) [email or web address] Not available 02/26/2023 13:17:05 09/05/2023 09/05/2023 We completed your Medicare Wellness exam today. This was an opportunity to assess your overall well being including your ability to care for yourself, your mobility, memory, mental health, as well as your safety. With advancing age, it is important to assign someone in your life as your Health Care Proxy (HCP). This person should know what is important to you and what your wishes are for medical procedures if you cannot communicate your wishes yourself (severe illness, unconsciousness) . We discussed having a completed Health Care Proxy form today. In addition, today we started a conversation about your End of Life wishes. These conversations will continue over the years. Please consider reading the book, Being Mortal by Lalo Ansari to help frame future conversations. We discussed the purpose of a MOLST form (Medical Orders for Life Sustaining Treatment) and completed this form if appropriate per your wishes. Vision and Hearing are senses that are critically important as we age. When impaired, they can contribute to memory loss, falls, and make it harder to drive, talk to family and friends, and engage in the world. Please get your vision checked yearly and your hearing checked when you start to notice hearing loss. We discussed approaches to lowering your risk of heart disease and stroke . Your blood pressure is at goal. Your cholesterol is at goal. We discussed cancer screening you may need as well as vaccines to prevent infections. Colon Cancer : Your risk of colon cancer is average. Due for colorectal screenin.. will get colonoscopy report from [facility] - had fall 2022 - ? 5-10 yr recall Prostate Cancer : PSA testing for ages 55-69 risks and benefits discussed patient declines testing. Aortic Aneurysm Screening : is indicated if you have a history of smoking and is due once at age 65. Influenza Vaccine : Flu shot yearly. Tetanus Vaccine : Every 10 years. Due: 2026. The following vaccines are available from your pharmacy: Pneumonia Vaccine : PCV20: once after age 65. Shingles Vaccine : 2 shots after age 50. Covid Vaccine : Make sure you have received the most up to date covid vaccine. Your personal health goal for the year is: [email or web address] Not available 09/05/2023 11:46:51 08/27/2024 08/27/2024 Assessment and Plan Hypertension Hypertension managed with metoprolol and Entresto. Lisinopril is unnecessary. - Continue Entresto and metoprolol without adding lisinopril. - Monitor blood pressure to maintain target range. Chronic Obstructive Pulmonary Disease (COPD) On supplemental oxygen with fatigue and dyspnea. History of elevated CO2 and non-adherence to treatments. - Encourage incentive spirometry use to prevent atelectasis. - Ensure adherence to albuterol treatments. - Coordinate with pulmonology for ongoing COPD management. Seizure Disorder Seizure occurred after alcohol discontinuation. Confusion about Keppra dosage needs resolution. - Clarify Keppra dosage with prescribing physician. - Ensure adherence to seizure management plan. Nutritional Deficiency Low albumin indicates poor nutrition, likely from decreased appetite and protein intake. - Encourage increased protein intake to improve albumin levels. - Monitor nutritional status and adjust dietary recommendations. Follow-up Coordination Missed follow-ups due to hospitalizations . Coordination is crucial for managing complex conditions. - Schedule follow-up appointments with cardiology and pulmonology. - Ensure visiting nurse services for ongoing support and monitoring. [email or web address] Not available 09/28/2024 10:40:48 Plan of Treatment Reminders Order Date Submit Date Provider Last Modified By Organization Details Last Modified Time Details Appointments None [email or web address] CBC 2024 025 [facility], [address] [place] [address], [address], 5 11:16:23 CMP, serum or plasma 2024 025 [facility], [address] [place] [address], [address], 5 14:02:36 CBC 2023 024 [email or web address] [facility], [address] [place] [address], [address], 5 11:25:58 lipid panel, serum 2023 024 [email or web address] [facility], [address] [place] [address], [address], 5 11:26:23 CBC 2022 023 [facility], [address] [place] [address], [address], 3 11:03:00 CBC 2022 023 [facility], [address] [place] [address], [address], 3 12:16:05 CBC 2022 023 [facility], [address] [place] [address], [address], 3 09:48:56 CBC 2022 023 [facility], [address] [place] [address], [address], 3 17:15:20 [facility] 2022 [email or web address], [address] [facility], [place], [address], 3 14:30:13 CBC 2022 023 LIYA [facility], [address] [place], [address], 3 12:36:39 Referral None recorde d. Procedures None recorde d. Surgeries None recorde d. Imaging LDCT, chest, for lung cancer screeni ng - 58 y.o. with COPD, 30+ pack year smoker 1/2ppd - due for LDCT after 11/02/232023 024 [email or web address] [facility], [address] [place], [address], 4 13:37:57 Medication Orders amiodar one 200 mg tablet 2023 024 [email or web address] [id number], [address] [place] [address], [address], 5 08:45:05 bupropi on HCl SR 150 mg tablet, 12 hr sustain ed-rele ase 2023 024 [email or web address] [id number], [address] [place] [address], [address], 4 08:24:36 Xarelto 20 mg tablet 2022 023 [email or web address] [id number], [address] [place] [address], [address], 3 12:36:21 Entrest o 24 mg-26 mg tablet 2022 023 [email or web address] [id number], [address] [place] [address], [address], 5 13:30:26 Patient TargetsNo targets recorded. Patient Instructions Encounter Date Encounter Id Patient Instructions Last Modified By Organization Details Last Modified Time 02/26/2023 [id number] After a discussi on of treatment options, which included consideration of best practices, patient preferences, and the patient s individual lifestyle and treatment goals, as well as consideration and attempted mitigation of any barriers to meeting the patient s goals, the above treatment plan and objectives were adopted: [email or web address] Not available 02/26/2023 13:16:08 06/11/2023 [id number] CCM: The provide r and patient discussed the Chronic Care Management program, including the services provided, and any fees associated with them. Not available 06/11/2023 12:19:40 09/05/2023 [id number] After a discussi on of treatment options, which included consideration of best practices, patient preferences, and the patient s individual lifestyle and treatment goals, as well as consideration and attempted mitigation of any barriers to meeting the patient s goals, the above treatment plan and objectives were adopted: [email or web address] Not available 09/05/2023 11:51:04 10/03/2023 [id number] After a discussi on of treatment options, which included consideration of best practices, patient preferences, and the patient s individual lifestyle and treatment goals, as well as consideration and attempted mitigation of any barriers to meeting the patient s goals, the above treatment plan and objectives were adopted: [email or web address] Not available 10/03/2023 09:21:28 08/27/2024 [id number] I am aware of [facility] inpatient facility discharge medications, the medication list above has been reconciled with those medications and reflects my understanding of an up to date medication list for this patient. [email or web address] Not available 09/25/2024 09:07:38 Reason for Referral None Reported. Results Created Date Observation Date Name Description Value Unit Range Abnormal Flag Note LastModifiedBy Organization Detail LastModifiedTime 02/21/2002/20/2023 HOLD SPECI MEN IN BLOOD BANK (NO TESTI NG PERFO RMED) expiration date of sample 2022,2 359 Not Available [facility] [address] [place], [address], 02/20/2023 23:28:23 02/21/20 23 02/20/2023 HOLD SPECI MEN IN BLOOD BANK (NO TESTI NG PERFO RMED) resulting agency [facility] Not Available [facility] [address] [place], [address], 02/20/2023 23:28:23 02/21/20 23 02/20/2023 CBC AND DIFFE RENTI AL WBC 10.50 K/uL 4.00-1 1.00 Not Available [facility] [address] [place], [address], 02/20/2023 23:35:06 02/21/20 23 02/20/2023 CBC AND DIFFE RENTI AL RBC 2.05 M/uL 3.90-5 .69 low Not Available [facility] [address] [place], [address], 02/20/2023 23:35:06 02/21/20 23 02/20/2023 CBC AND DIFFE RENTI AL HGB 5.0 g/dL 12.4-1 7.3 critical low This resul t has been del cid d to AMARILIS Albarran by Sylvia Morales on 02 20 2023 at 2334, and has been read back. Not Available [facility] [address] [place], [address], 02/20/2023 23:35:06 02/21/20 23 02/20/2023 CBC AND DIFFE RENTI AL HCT 17.3 % 37.0-5 1.0 low Not Available [facility] [address] [place], [address], 02/20/2023 23:35:06 02/21/20 23 02/20/2023 CBC AND DIFFE RENTI AL plt 456 K/uL 140-43 0 high Not Available [facility] [address] [place], [address], 02/20/2023 23:35:06 02/21/20 23 02/20/2023 CBC AND DIFFE RENTI AL MCV 84.4 fL 78.0-9 7.0 Not Available [facility] [address] [place], [address], 02/20/2023 23:35:06 02/21/20 23 02/20/2023 CBC AND DIFFE RENTI AL MCH 24.4 pg 25.0-3 3.0 low Not Available [facility] [address] [place], [address], 02/20/2023 23:35:06 02/21/20 23 02/20/2023 CBC AND DIFFE RENTI AL MCHC 28.9 g/dL 32.0-3 6.0 low Not Available [facility] [address] [place], [address], 02/20/2023 23:35:06 02/21/20 23 02/20/2023 CBC AND DIFFE RENTI AL RDW 18.4 % 11.0-1 5.0 high Not Available [facility] [address] [place], [address], 02/20/2023 23:35:06 02/21/20 23 02/20/2023 CBC AND DIFFE RENTI AL MPV 9.2 fL 8.4-12 .8 Not Available [facility] [address] [place], [address], 02/20/2023 23:35:06 02/21/20 23 02/20/2023 CBC AND DIFFE RENTI AL diff method AUTO Not Available [facility] [address] [place], [address], 02/20/2023 23:35:06 02/21/20 23 02/20/2023 CBC AND DIFFE RENTI AL neuts 67.8 % 43.0-7 5.0 Not Available [facility] [address] [place], [address], 02/20/2023 23:35:06 02/21/20 23 02/20/2023 CBC AND DIFFE RENTI AL lymphs 16.9 % 18.2-4 7.4 low Not Available [facility] [address] [place], [address], 02/20/2023 23:35:06 02/21/20 23 02/20/2023 CBC AND DIFFE RENTI AL monos 9.3 % 4.00-1 1.00 Not Available [facility] [address] [place], [address], 02/20/2023 23:35:06 02/21/20 23 02/20/2023 CBC AND DIFFE RENTI AL eos 3.4 % 0.0-8. 0 Not Available [facility] [address] [place], [address], 02/20/2023 23:35:06 02/21/20 23 02/20/2023 CBC AND DIFFE RENTI AL basos 0.8 % 0.0-2. 0 Not Available [facility] [address] [place], [address], 02/20/2023 23:35:06 02/21/20 23 02/20/2023 CBC AND DIFFE RENTI AL granulocytes , immature (%) 1.8 % 0.0-0. 9 high Not Available [facility] [address] [place], [address], 02/20/2023 23:35:06 02/21/20 23 02/20/2023 CBC AND DIFFE RENTI AL absolute neuts 7.12 K/uL 1.80-7 .70 Not Available [facility] [address] [place], [address], 02/20/2023 23:35:06 02/21/20 23 02/20/2023 CBC AND DIFFE RENTI AL absolute lymphs 1.77 K/uL 1.00-3 .10 Not Available [facility] [address] [place], [address], 02/20/2023 23:35:06 02/21/20 23 02/20/2023 CBC AND DIFFE RENTI AL absolute monos 0.98 K/uL 0.20-0 .80 high Not Available [facility] [address] [place], [address], 02/20/2023 23:35:06 02/21/20 23 02/20/2023 CBC AND DIFFE RENTI AL absolute eos 0.36 K/uL 0.00-0 .80 Not Available [facility] [address] [place], [address], 02/20/2023 23:35:06 02/21/20 23 02/20/2023 CBC AND DIFFE RENTI AL absolute basos 0.08 K/uL 0.00-0 .09 Not Available [facility] [address] [place], [address], 02/20/2023 23:35:06 02/21/20 23 02/20/2023 CBC AND DIFFE RENTI AL granulocytes , immature 0.19 K/uL 0.00-0 .05 high Not Available [facility] [address] [place], [address], 02/20/2023 23:35:06 02/21/20 23 02/20/2023 PT-IN R PT 11.6 sec 10.2-1 2.9 Not Available [facility] [address] [place], [address], 02/20/2023 23:39:57 02/21/20 23 02/20/2023 PT-IN R INR 1.0 0.9-1. 1 Thera peuti c range for oral Vitam in K antag onist s: 2.0-3 .5 Not Available [facility] [address] [place], [address], 02/20/2023 23:39:57 02/21/20 23 02/20/2023 BASIC METAB OLIC PANEL sodium 134 mmol/ L 133-14 6 Not Available [facility] [address] [place], [address], 02/20/2023 23:46:59 02/21/20 23 02/20/2023 BASIC METAB OLIC PANEL chloride 95 mmol/ L 96-108 low Not Available [facility] [address] [place], [address], 02/20/2023 23:46:59 02/21/20 23 02/20/2023 BASIC METAB OLIC PANEL potassium 4.7 mmol/ L 3.3-5. 1 Not Available [facility] [address] [place], [address], 02/20/2023 23:46:59 02/21/20 23 02/20/2023 BASIC METAB OLIC PANEL CO2 32 mmol/ L 21-35 Not Available [facility] [address] [place], [address], 02/20/2023 23:46:59 02/21/20 23 02/20/2023 BASIC METAB OLIC PANEL BUN 13 mg/dL 6-19 Not Available [facility] [address] [place], [address], 02/20/2023 23:46:59 02/21/20 23 02/20/2023 BASIC METAB OLIC PANEL creatinine 1.00 mg/dL 0.5-1. 5 Not Available [facility] [address] [place], [address], 02/20/2023 23:46:59 02/21/20 23 02/20/2023 BASIC METAB OLIC PANEL glucose 103 mg/dL 70-99 high Not Available [facility] [address] [place], [address], 02/20/2023 23:46:59 02/21/20 23 02/20/2023 BASIC METAB OLIC PANEL calcium 8.4 mg/dL 8.4-10 .3 Not Available [facility] [address] [place], [address], 02/20/2023 23:46:59 02/21/20 23 02/20/2023 BASIC METAB OLIC PANEL eGFR 87 mL/mi n/1.7 3m2 >59 Estim ated glome rular filtr ation rate calcu lated using the CKD-E PI refit equat ion. Not Available [facility] [address] [place], [address], 02/20/2023 23:46:59 02/21/20 23 02/20/2023 BASIC METAB OLIC PANEL anion gap 12 mmol/ L 10-20 Not Available [facility] [address] [place], [address], 02/20/2023 23:46:59 02/21/20 23 02/20/2023 LFTS (HEPA TIC PANEL ) alkaline phosphatase 78 U/L 39-117 Not Available [facility] [address] [place], [address], 02/20/2023 23:47:00 02/21/20 23 02/20/2023 LFTS (HEPA TIC PANEL ) total bilirubin <0.2 mg/dL 0.0-1. 2 Not Available [facility] [address] [place], [address], 02/20/2023 23:47:00 02/21/20 23 02/20/2023 LFTS (HEPA TIC PANEL ) direct bilirubin <0.2 mg/dL 0-0.3 Not Available [facility] [address] [place], [address], 02/20/2023 23:47:00 02/21/20 23 02/20/2023 LFTS (HEPA TIC PANEL ) bilirubin (indirect) NOT CALCUL ATED mg/dL 0-1.5 Not Available [facility] [address] [place], [address], 02/20/2023 23:47:00 02/21/20 23 02/20/2023 LFTS (HEPA TIC PANEL ) AST 12 U/L 0-37 Not Available [facility] [address] [place], [address], 02/20/2023 23:47:00 02/21/20 23 02/20/2023 LFTS (HEPA TIC PANEL ) ALT 9 U/L 0-40 Not Available [facility] [address] [place], [address], 02/20/2023 23:47:00 02/21/20 23 02/20/2023 LFTS (HEPA TIC PANEL ) total protein 6.1 g/dL 6.5-8. 0 low Not Available [facility] [address] [place], [address], 02/20/2023 23:47:00 02/21/20 23 02/20/2023 LFTS (HEPA TIC PANEL ) albumin 3.8 g/dL 3.9-4. 8 low Not Available [facility] [address] [place], [address], 02/20/2023 23:47:00 02/21/20 23 02/20/2023 LFTS (HEPA TIC PANEL ) globulin 2.3 g/dL 1-4.8 Not Available [facility] [address] [place], [address], 02/20/2023 23:47:00 02/21/20 23 02/20/2023 LFTS (HEPA TIC PANEL ) A/G ratio 1.65 ratio 1.00-4 .80 Not Available [facility] [address] [place], [address], 02/20/2023 23:47:00 02/21/20 23 02/20/2023 MAGNE SIUM magnesium 2.2 mg/dL 1.6-2. 6 Not Available [facility] [address] [place], [address], 02/20/2023 23:47:01 02/21/20 23 02/20/2023 NT-KS OBNP nt-probnp 1072 pg/mL 0-125 high Not Available [facility] [address] [place], [address], 02/20/2023 23:47:02 02/21/20 23 02/20/2023 TSH WITH REFLE X TSH 1.10 uIU/m L 0.27-4 .20 Not Available [facility] [address] [place], [address], 02/20/2023 23:47:03 02/21/20 23 02/20/2023 COVID BOYD KAMILA RESPI RATOR Y VIRAL ORDER (PRO) test ordered RAPID COVID, FLU HAS BEEN ORDERE D Not Available [facility] [address] [place], [address], 02/20/2023 23:58:32 02/21/20 23 02/20/2023 COVID BOYD KAMILA RESPI RATOR Y VIRAL ORDER (PRO) specimen source/descr iption ALEXIA MONZON AL SWAB Not Available [facility] [address] [place], [address], 02/20/2023 23:58:32 02/21/20 23 02/20/2023 COVID BOYD KAMILA RESPI RATOR Y VIRAL ORDER (PRO) influenza A PCR NOT DETECT ED not detect ed Not Available [facility] [address] [place], [address], 02/20/2023 23:58:32 02/21/20 23 02/20/2023 COVID BOYD KAMILA RESPI RATOR Y VIRAL ORDER (PRO) influenza B PCR NOT DETECT ED not detect ed Not Available [facility] [address] [place], [address], 02/20/2023 23:58:32 02/21/20 23 02/20/2023 COVID BOYD KAMILA RESPI RATOR Y VIRAL ORDER (PRO) sars-cov 2 (covid-19) PCR NOT DETECT ED not detect ed Not Available [facility] [address] [place], [address], 02/20/2023 23:58:32 02/21/20 23 02/21/2023 ABO2F - 2ND TYPE (NEW SAMPL E) ABO/Rh O NEGATI VE Not Available [facility] [address] [place], [address], 02/21/2023 00:22:01 02/21/20 23 02/21/2023 ABO2F - 2ND TYPE (NEW SAMPL E) resulting agency [facility] Not Available [facility] [address] [place], [address], 02/21/2023 00:22:01 02/21/20 23 02/25/2023 TYPE AND SCREE N (ABO, RH,AN TIBOD Y SCREE N) ABO/Rh O NEGATI VE Not Available [facility] [address] [place], [address], 02/25/2023 08:57:03 02/21/20 23 02/25/2023 TYPE AND SCREE N (ABO, RH,AN TIBOD Y SCREE N) antibody screen NEGATI VE Not Available [facility] [address] [place], [address], 02/25/2023 08:57:03 02/21/20 23 02/25/2023 TYPE AND SCREE N (ABO, RH,AN TIBOD Y SCREE N) expiration date of sample 2022,2 359 Not Available [facility] [address] [place], [address], 02/25/2023 08:57:03 02/21/2002/25/2023 TYPE AND SCREE N (ABO, RH,AN TIBOD Y SCREE N) RBC - unit number [id number] Not Available [facility] [address] [place] [address], [address], 02/25/2023 08:57:03 02/21/20 23 02/25/2023 TYPE AND SCREE N (ABO, RH,AN TIBOD Y SCREE N) RBC - component type APHER RBC LR C1 Not Available [facility] [address] [place] [address], [address], 02/25/2023 08:57:03 02/21/20 23 02/25/2023 TYPE AND SCREE N (ABO, RH,AN TIBOD Y SCREE N) RBC - product code [id number] 00 Not Available [facility] [address] [place] [address], [address], 02/25/2023 08:57:03 02/21/20 23 02/25/2023 TYPE AND SCREE N (ABO, RH,AN TIBOD Y SCREE N) RBC - unit division 00 Not Available [facility] [address] [place] [address], [address], 02/25/2023 08:57:03 02/21/20 23 02/25/2023 TYPE AND SCREE N (ABO, RH,AN TIBOD Y SCREE N) RBC - product status of unit ISSUED ,FINAL Not Available [facility] [address] [place] [address], [address], 02/25/2023 08:57:03 02/21/20 23 02/25/2023 TYPE AND SCREE N (ABO, RH,AN TIBOD Y SCREE N) RBC - unit number [id number] Not Available [facility] [address] [place] [address], [address], 02/25/2023 08:57:03 02/21/2002/25/2023 TYPE AND SCREE N (ABO, RH,AN TIBOD Y SCREE N) RBC - component type APHER RBC LR C1 Not Available [facility] [address] [place] [address], [address], 02/25/2023 08:57:03 02/21/20 23 02/25/2023 TYPE AND SCREE N (ABO, RH,AN TIBOD Y SCREE N) RBC - product code [id number] 00 Not Available [facility] [address] [place] [address], [address], 02/25/2023 08:57:03 02/21/20 23 02/25/2023 TYPE AND SCREE N (ABO, RH,AN TIBOD Y SCREE N) RBC - unit division 00 Not Available [facility] [address] [place] [address], [address], 02/25/2023 08:57:03 02/21/20 23 02/25/2023 TYPE AND SCREE N (ABO, RH,AN TIBOD Y SCREE N) RBC - product status of unit ISSUED ,FINAL Not Available [facility] [address] [place], [address], 02/25/2023 08:57:03 02/21/20 23 02/25/2023 TYPE AND SCREE N (ABO, RH,AN TIBOD Y SCREE N) resulting agency [facility] Not Available [facility] [address] [place], [address], 02/25/2023 08:57:03 02/21/20 23 02/21/2023 LAB ADD ON test requested FERRIT IN, IRON STUDIE S, B12, FOLATE , RETICU LOCYTE COUNT, TSH, LDH, HAPTOG LOBIN Not Available [facility] [address] [place], [address], 02/21/2023 00:49:51 02/21/20 23 02/21/2023 LAB ADD ON status Add on order being proce ssed. Floor or provi dee will be notif ied if testi ng canno t be perfo rmed Not Available [facility] [address] [place], [address], 02/21/2023 00:49:51 02/21/20 23 02/21/2023 VITAM IN B12 vitamin B12 428 pg/mL 232-12 45 Not Available [facility] [address] [place], [address], 02/21/2023 01:26:22 02/21/20 23 02/21/2023 DELMA TIN ferritin 8 ug/L 30-400 low Not Available [facility] [address] [place], [address], 02/21/2023 01:26:23 02/21/20 23 02/21/2023 LDH LDH 152 U/L 118-27 3 Not Available [facility] [address] [place] [address], [address], 02/21/2023 01:26:24 02/21/20 23 02/21/2023 IRON AND IRON CLAUDIA NG CAPAC ITY iron 16 ug/dL 45-160 low Not Available [facility] (Outpatient) [address] [place], [address], 02/21/2023 01:26:25 02/21/20 23 02/21/2023 IRON AND IRON CLAUDIA NG CAPAC ITY iron binding capacity 438 ug/dL 228-42 8 high Not Available [facility] (Outpatient) [address] [place], [address], 02/21/2023 01:26:25 02/21/20 23 02/21/2023 IRON AND IRON CLAUDIA NG CAPAC ITY transferrin saturat. 4 % 20-55 low Not Available [facility] (Outpatient) [address] [place], [address], 02/21/2023 01:26:25 02/21/20 23 02/21/2023 TSH TSH 1.12 uIU/m L 0.27-4 .20 Not Available [facility] (Outpatient) [address] [place] [address], [id number], 02/21/2023 01:26:26 02/22/20 23 02/21/2023 POCT GLUCO SE whole blood glucose 104 mg/dL 70-99 high Not Available [facility] (Outpatient) [address] [place], [address], 02/21/2023 09:23:59 02/22/20 23 02/21/2023 CBC AND DIFFE RENTI AL WBC 11.53 K/uL 4.00-1 1.00 high Not Available [facility] (Outpatient) [address] [place], [address], 02/21/2023 12:50:17 02/22/20 23 02/21/2023 CBC AND DIFFE RENTI AL RBC 3.04 M/uL 3.90-5 .69 low Not Available [facility] (Outpatient) [address] [place] [address], [id number], 02/21/2023 12:50:17 02/22/20 23 02/21/2023 CBC AND DIFFE RENTI AL HGB 7.7 g/dL 12.4-1 7.3 low Not Available [facility] (Outpatient) [address] [place] [address], [address], 02/21/2023 12:50:17 02/22/20 23 02/21/2023 CBC AND DIFFE RENTI AL HCT 25.4 % 37.0-5 1.0 low Not Available [facility] (Outpatient) [address] [place] [address], [id number], 02/21/2023 12:50:17 02/22/20 23 02/21/2023 CBC AND DIFFE RENTI AL plt 482 K/uL 140-43 0 high Not Available [facility] (Outpatient) [address] [place] [address], [id number], 02/21/2023 12:50:17 02/22/20 23 02/21/2023 CBC AND DIFFE RENTI AL MCV 83.6 fL 78.0-9 7.0 Not Available [facility] (Outpatient) [address] [place] [address], [address], 02/21/2023 12:50:17 02/22/20 23 02/21/2023 CBC AND DIFFE RENTI AL MCH 25.3 pg 25.0-3 3.0 Not Available [facility] (Outpatient) [address] [place] [address], [address], 02/21/2023 12:50:17 02/22/20 23 02/21/2023 CBC AND DIFFE RENTI AL MCHC 30.3 g/dL 32.0-3 6.0 low Not Available [facility] (Outpatient) [address] [place] [address], [address], 02/21/2023 12:50:17 02/22/20 23 02/21/2023 CBC AND DIFFE RENTI AL RDW 17.2 % 11.0-1 5.0 high Not Available [facility] (Outpatient) [address] [place], [address], 02/21/2023 12:50:17 02/22/20 23 02/21/2023 CBC AND DIFFE RENTI AL MPV 9.2 fL 8.4-12 .8 Not Available [facility] (Outpatient) [address] [place], [address], 02/21/2023 12:50:17 02/22/20 23 02/21/2023 CBC AND DIFFE RENTI AL diff method AUTO Not Available [facility] (Outpatient) [address] [place], [address], 02/21/2023 12:50:17 02/22/20 23 02/21/2023 CBC AND DIFFE RENTI AL neuts 76.1 % 43.0-7 5.0 high Not Available [facility] (Outpatient) [address] [place] [address], [address], 02/21/2023 12:50:17 02/22/20 23 02/21/2023 CBC AND DIFFE RENTI AL lymphs 10.2 % 18.2-4 7.4 low Not Available [facility] (Outpatient) [address] [place] [address], [id number], 02/21/2023 12:50:17 02/22/20 23 02/21/2023 CBC AND DIFFE RENTI AL monos 8.6 % 4.00-1 1.00 Not Available [facility] (Outpatient) [address] [place], [address], 02/21/2023 12:50:17 02/22/20 23 02/21/2023 CBC AND DIFFE RENTI AL eos 2.5 % 0.0-8. 0 Not Available [facility] (Outpatient) [address] [place], [address], 02/21/2023 12:50:17 02/22/20 23 02/21/2023 CBC AND DIFFE RENTI AL basos 1.0 % 0.0-2. 0 Not Available [facility] (Outpatient) [address] [place], [address], 02/21/2023 12:50:17 02/22/20 23 02/21/2023 CBC AND DIFFE RENTI AL granulocytes , immature (%) 1.6 % 0.0-0. 9 high Not Available [facility] (Outpatient) [address] [place], [address], 02/21/2023 12:50:17 02/22/20 23 02/21/2023 CBC AND DIFFE RENTI AL absolute neuts 8.78 K/uL 1.80-7 .70 high Not Available [facility] (Outpatient) [address] [place], [address], 02/21/2023 12:50:17 02/22/20 23 02/21/2023 CBC AND DIFFE RENTI AL absolute lymphs 1.18 K/uL 1.00-3 .10 Not Available [facility] (Outpatient) [address] [place], [address], 02/21/2023 12:50:17 02/22/20 23 02/21/2023 CBC AND DIFFE RENTI AL absolute monos 0.99 K/uL 0.20-0 .80 high Not Available [facility] (Outpatient) [address] [place], [address], 02/21/2023 12:50:17 02/22/20 23 02/21/2023 CBC AND DIFFE RENTI AL absolute eos 0.29 K/uL 0.00-0 .80 Not Available [facility] (Outpatient) [address] [place], [address], 02/21/2023 12:50:17 02/22/20 23 02/21/2023 CBC AND DIFFE RENTI AL absolute basos 0.11 K/uL 0.00-0 .09 high Not Available [facility] (Outpatient) [address] [place], [address], 02/21/2023 12:50:17 02/22/20 23 02/21/2023 CBC AND DIFFE RENTI AL granulocytes , immature 0.18 K/uL 0.00-0 .05 high Not Available [facility] (Outpatient) [address] [place], [address], 02/21/2023 12:50:17 02/22/20 23 02/21/2023 POCT GLUCO SE whole blood glucose 103 mg/dL 70-99 high Not Available [facility] (Out[facility]) [address] [place], [address], 02/21/2023 14:03:41 02/22/20 23 02/21/2023 POCT GLUCO SE whole blood glucose 103 mg/dL 70-99 high Not Available [facility] (Out[facility]) [address] [place], [address], 02/21/2023 17:10:57 02/22/20 23 02/21/2023 POCT GLUCO SE whole blood glucose 121 mg/dL 70-99 high Not Available [facility] (Outpatient) [address] [place], [address], 02/21/2023 19:31:26 02/22/20 23 02/21/2023 CBC WBC 12.20 K/uL 4.00-1 1.00 high Not Available [facility] (Out[facility]) [address] [place], [address], 02/21/2023 20:39:32 02/22/20 23 02/21/2023 CBC RBC 3.09 M/uL 3.90-5 .69 low Not Available [facility] (Outpatient) [address] [place], [address], 02/21/2023 20:39:32 02/22/20 23 02/21/2023 CBC HGB 7.6 g/dL 12.4-1 7.3 low Not Available [facility] (Out[facility]) [address] [place], [address], 02/21/2023 20:39:32 02/22/20 23 02/21/2023 CBC HCT 25.9 % 37.0-5 1.0 low Not Available [facility] (Outpatient) [address] [place], [address], 02/21/2023 20:39:32 02/22/20 23 02/21/2023 CBC plt 460 K/uL 140-43 0 high Not Available [facility] (Out[facility]) [address] [place] [address], [id number], 02/21/2023 20:39:32 02/22/20 23 02/21/2023 CBC MCV 83.8 fL 78.0-9 7.0 Not Available [facility] (Outpatient) [address] [place], [address], 02/21/2023 20:39:32 02/22/20 23 02/21/2023 CBC MCH 24.6 pg 25.0-3 3.0 low Not Available [facility] (Outpatient) [address] [place], [address], 02/21/2023 20:39:32 02/22/20 23 02/21/2023 CBC MCHC 29.3 g/dL 32.0-3 6.0 low Not Available [facility] (Outpatient) [address] [place], [address], 02/21/2023 20:39:32 02/22/20 23 02/21/2023 CBC RDW 17.2 % 11.0-1 5.0 high Not Available [facility] (Outpatient) [address] [place], [address], 02/21/2023 20:39:32 02/22/20 23 02/21/2023 CBC MPV 9.0 fL 8.4-12 .8 Not Available [facility] (Outpatient) [address] [place], [address], 02/21/2023 20:39:32 02/23/20 23 02/22/2023 CBC WBC 11.50 K/uL 4.00-1 1.00 high Not Available [facility] (Outpatient) [address] [place], [address], 02/22/2023 07:02:29 02/23/20 23 02/22/2023 CBC RBC 3.14 M/uL 3.90-5 .69 low Not Available [facility] (Outpatient) [address] [place], [address], 02/22/2023 07:02:29 02/23/20 23 02/22/2023 CBC HGB 7.9 g/dL 12.4-1 7.3 low Not Available [facility] (Outpatient) [address] [place], [address], 02/22/2023 07:02:29 02/23/20 23 02/22/2023 CBC HCT 26.2 % 37.0-5 1.0 low Not Available [facility] (Outpatient) [address] [place], [address], 02/22/2023 07:02:29 02/23/20 23 02/22/2023 CBC plt 471 K/uL 140-43 0 high Not Available [facility] (Outpatient) [address] [place], [address], 02/22/2023 07:02:29 02/23/20 23 02/22/2023 CBC MCV 83.4 fL 78.0-9 7.0 Not Available [facility] (Outpatient) [address] [place], [address], 02/22/2023 07:02:29 02/23/20 23 02/22/2023 CBC MCH 25.2 pg 25.0-3 3.0 Not Available [facility] (Outpatient) [address] [place], [address], 02/22/2023 07:02:29 02/23/20 23 02/22/2023 CBC MCHC 30.2 g/dL 32.0-3 6.0 low Not Available [facility] (Outpatient) [address] [place], [address], 02/22/2023 07:02:29 02/23/20 23 02/22/2023 CBC RDW 17.2 % 11.0-1 5.0 high Not Available [facility] (Outpatient) [address] [place], [address], 02/22/2023 07:02:29 02/23/20 23 02/22/2023 CBC MPV 9.4 fL 8.4-12 .8 Not Available [facility] (Outpatient) [address] [place], [address], 02/22/2023 07:02:29 02/23/20 23 02/22/2023 BASIC METAB OLIC PANEL sodium 139 mmol/ L 133-14 6 Not Available [facility] (Outpatient) [address] [place], [address], 02/22/2023 07:39:00 02/23/20 23 02/22/2023 BASIC METAB OLIC PANEL chloride 95 mmol/ L 96-108 low Not Available [facility] (Outpatient) [address] [place], [address], 02/22/2023 07:39:00 02/23/20 23 02/22/2023 BASIC METAB OLIC PANEL potassium 4.6 mmol/ L 3.3-5. 1 Not Available [facility] (Outpatient) [address] [place], [address], 02/22/2023 07:39:00 02/23/20 23 02/22/2023 BASIC METAB OLIC PANEL CO2 37 mmol/ L 21-35 high Not Available [facility] (Outpatient) [address] [place], [address], 02/22/2023 07:39:00 02/23/20 23 02/22/2023 BASIC METAB OLIC PANEL BUN 10 mg/dL 6-19 Not Available [facility] (Outpatient) [address] [place], [address], 02/22/2023 07:39:00 02/23/20 23 02/22/2023 BASIC METAB OLIC PANEL creatinine 0.90 mg/dL 0.5-1. 5 Not Available [facility] (Outpatient) [address] [place], [address], 02/22/2023 07:39:00 02/23/20 23 02/22/2023 BASIC METAB OLIC PANEL glucose 94 mg/dL 70-99 Not Available [facility] (Outpatient) [address] [place], [address], 02/22/2023 07:39:00 02/23/20 23 02/22/2023 BASIC METAB OLIC PANEL calcium 8.7 mg/dL 8.4-10 .3 Not Available [facility] (Outpatient) [address] [place], [address], 02/22/2023 07:39:00 02/23/20 23 02/22/2023 BASIC METAB OLIC PANEL eGFR 98 mL/mi n/1.7 3m2 >59 Estim ated glome rular filtr ation rate calcu lated using the CKD-E PI refit equat ion. Not Available [facility] (Outpatient) [address] [place], [address], 02/22/2023 07:39:00 02/23/20 23 02/22/2023 BASIC METAB OLIC PANEL anion gap 12 mmol/ L 10-20 Not Available [facility] (Outpatient) [address] [place], [address], 02/22/2023 07:39:00 02/23/20 23 02/22/2023 MAGNE SIUM magnesium 2.1 mg/dL 1.6-2. 6 Not Available [facility] (Outpatient) [address] [place], [address], 02/22/2023 07:39:02 02/23/20 23 02/22/2023 PHOSP HORUS phosphorus 4.3 mg/dL 2.7-4. 5 Not Available [facility] (Outpatient) [address] [place], [address], 02/22/2023 07:39:03 02/23/20 23 02/22/2023 POCT GLUCO SE whole blood glucose 90 mg/dL 70-99 Not Available [facility] (Outpatient) [address] [place], [address], 02/22/2023 07:39:30 02/23/20 23 02/22/2023 POCT GLUCO SE whole blood glucose 110 mg/dL 70-99 high Not Available [facility] (Out[facility]) [address] [place], [address], 02/22/2023 12:00:52 02/23/20 23 02/25/2023 ANATO KAMILA PATHO LOGY path report [facility] [address] [place] [address] Lab Direc tor: Letty juares MD Surgi adalid Patho logy Repor t Acces roque #: [id number] FINAL PATHO LOGIC DIAGN OSIS: A. DUODE NUM, BIOPS Y: No patho logic abnor malit y. B. STOMA CH ANTRU M, BIOPS Y: Inact jax chron ic gastr itis with react jax quintanilla es. Note: Immun ohist rohan ical stain s for H. pylor i are perfo rmed on the gastr ic biops ies and DO NOT DEMON STRAT E organ isms with the morph ologi c jenn cteri stics of Helic obact er. Veronica ctron icall y Charlene d Out By Juan J mcelroy MD By his/h er signgretchen stephenson above , the patho logis t liste d as kale hernandez the Final Diagn osis certi fies that he/sh e has perso елена revie wed this case and confi rmed or corre cted the diagn osis. CLINI ADALID HISTO RY Iron defic iency anemi a SPECI MENS SUBMI TTED: A: DUODE NUM, BIOPS Y B: STOMA CH ANTRU M, BIOPS Y GROSS DESCR IPTIO N A. DUODE NUM, BIOPS Y: Forma amalia: 5 fragm ents 0.1-0 .3 cm, entir vivek submi tted A1. B. STOMA CH ANTRU M, BIOPS Y: Forma amalia: 1 fragm ent 0.3 cm, entir vivek submi tted B1. DN 2022 Gross ing Staff : MAGEN One or more of the reage nts used in immun maximilian madrigal ical testi ng in this case may not have been clear ed or appro jatinder by the U.S. Food and Drug Admin istra tion (FDA) . The FDA has deter mined that such clear ance or appro frandy is not neces keven. These tests are used for clini adalid purpo ses. This shoul d not be regar ded as inves tigat ional or for resea rch. These reage nts' perfo rmanc e jenn cteri stics have been deter mined by the [facility]. This labor atory is certi fied under the Clini adalid Labor atory Impro vemen t Amend ments of 1987 (CLIA -88) as quali fied to perfo rm high compl exity clini adalid labor atory testi ng. Immun ohist ochem istry is perfo rmed on forma amalia-f ixed paraf fin-e mbedd ed secti ons (unle ss other martinez speci fied) and on a Bench david Ultra immun ostai ner which utili zes a propr ietar y polym er detec tion syste m. Posit jax, negat jax and inter nal contr ols, when prese nt, stain appro priat vivek. Patie nt Name: YOUSIF MCCALLUM : [phone] (Age: 57) Sex: M 3 Insti tutio n: [facility] Locat ion: [facility] [id number] Date of Opera tion: 2022 Date of Acces roque: 2022 Repor tracy: 2022 14:41 Resul ts To: Mario lebron MD, AB Marlene Harden FLY WORKER Not Available [facility] (Outpatient) [address] [place] [address], [address], 02/25/2023 15:20:31 02/29/20 23 02/28/2023 RBC MORPH OLOGY polychrom Slight Not Available [address], [address], 02/28/2023 11:02:49 02/29/20 23 02/28/2023 RBC MORPH OLOGY hypochrom 2+ Not Available [address], [address], 02/28/2023 11:02:49 02/29/20 23 02/28/2023 RBC MORPH OLOGY aniso 2+ Not Available [address], [address], 02/28/2023 11:02:49 02/29/20 23 02/28/2023 RBC MORPH OLOGY baso stip Slight Not Available [address], [address], 02/28/2023 11:02:49 02/29/20 23 02/28/2023 CBC WBC 9.95 K/ L 4.23-9 .07 high Not Available [address], [address], 02/28/2023 11:03:00 02/29/20 23 02/28/2023 CBC RBC 3.49 M/ L 4.63-6 .08 low Not Available [address], [address], 02/28/2023 11:03:00 02/29/20 23 02/28/2023 CBC HGB 8.2 g/dL 13.7-1 7.5 low Not Available [address], [address], 02/28/2023 11:03:00 02/29/20 23 02/28/2023 CBC HCT 29.0 % 40.1-5 1.0 low Not Available [address], [address], 02/28/2023 11:03:00 02/29/20 23 02/28/2023 CBC MCV 83.1 fL 79.0-9 2.2 Not Available [address], [address], 02/28/2023 11:03:00 02/29/20 23 02/28/2023 CBC MCH 23.5 pg 25.7-3 2.2 low Not Available [address], [address], 02/28/2023 11:03:00 02/29/20 23 02/28/2023 CBC MCHC 28.3 g/dL 32.3-3 6.5 low SREV= Slide revie wed by techn [facility]. Not Available [address], [address], 02/28/2023 11:03:00 02/29/20 23 02/28/2023 CBC plt 558 K/ L 163-33 7 high Not Available [address], [address], 02/28/2023 11:03:00 02/29/20 23 02/28/2023 CBC MPV 10.2 fL 9.4-12 .4 Not Available [address], [address], 02/28/2023 11:03:00 02/29/20 23 02/28/2023 CBC neut% 65.3 % 34.0-6 7.9 Not Available [address], [address], 02/28/2023 11:03:00 02/29/20 23 02/28/2023 CBC neut# 6.49 1.78-5 .38 high Not Available [address], [address], 02/28/2023 11:03:00 02/29/2002/28/2023 CBC lymph % 19.9 % 21.8-5 3.1 low Not Available [address], [address], 02/28/2023 11:03:00 02/29/20 23 02/28/2023 CBC lymph # 1.98 K/ L 1.32-3 .57 Not Available [address], [address], 02/28/2023 11:03:00 02/29/20 23 02/28/2023 CBC mono% 9.5 % 5.3-12 .2 Not Available [address], [address], 02/28/2023 11:03:00 02/29/20 23 02/28/2023 CBC mono# 0.95 0.30-0 .82 high Not Available [address], [address], 02/28/2023 11:03:00 02/29/20 23 02/28/2023 CBC eo% 2.6 % 0.8-7. 0 Not Available [address], [address], 02/28/2023 11:03:00 02/29/20 23 02/28/2023 CBC eo# 0.26 0.04-0 .54 Not Available [address], [address], 02/28/2023 11:03:00 02/29/20 23 02/28/2023 CBC baso% 1.6 % 0.2-1. 2 high Not Available [address], [address], 02/28/2023 11:03:00 02/29/20 23 02/28/2023 CBC baso# 0.16 0.00-0 .08 high Not Available [address], [address], 02/28/2023 11:03:00 02/29/20 23 02/28/2023 CBC RDW-CV 17.8 % 11.6-1 4.4 high Not Available [address], [address], 02/28/2023 11:03:00 02/29/20 23 02/28/2023 CBC Ig% 1.100 % 0.000- 1.500 Ig % >0.5 Indic ates possi ble Left Shift Not Available [address], [address], 02/28/2023 11:03:00 02/29/20 23 02/28/2023 CBC Ig# 0.110 0.000- 0.093 high Not Available [address], [address], 02/28/2023 11:03:00 02/29/2002/28/2023 CBC NRBC% 0.0 % 0.0-0. 2 Not Available [address], [address], 02/28/2023 11:03:00 02/29/20 23 02/28/2023 CBC NRBC# 0.000 0.000- 0.012 Not Available [address], [address], 02/28/2023 11:03:00 02/29/20 23 02/28/2023 COMP. METAB OLIC PANEL glucose 109 mg/dL 70-100 high Not Available [address], [address], 02/28/2023 14:17:35 02/29/20 23 02/28/2023 COMP. METAB OLIC PANEL BUN 23 mg/dL 7-18 high Not Available [address], [address], 02/28/2023 14:17:35 02/29/20 23 02/28/2023 COMP. METAB OLIC PANEL creatinine 1.1 mg/dL 0.8-1. 3 Not Available [address], [address], 02/28/2023 14:17:35 02/29/20 23 02/28/2023 COMP. METAB OLIC PANEL B/C 20.9 ratio Not Available [address], [address], 02/28/2023 14:17:35 02/29/20 23 02/28/2023 COMP. METAB OLIC PANEL GFR >=60ML /MIN mL/mi n normal >=60m L/min - Remedios l or midly reduc ed <60mL /min- Decre ased kidne y funct ion <15mL /min - Kidne y failu re [facility] calcu lates estim ated Glome rular Filtr ation Rate (eGFR ) using the Chron ic Kidne y Disea se Epide miolo gy Colla borat ion (CKD- EPI) Equat ion (Abelino zaldivar et. al 2020) as recom nayana d by the Natio nal Kidne y Found ation . eGFR is based on age, serum creat inine , and sex. CKD-E PI does not calcu late eGFR by race, does not apply to child nii (age <18 years ), and shoul d not be used in pregn ollie. Not Available [address], [address], 02/28/2023 14:17:35 02/29/20 23 02/28/2023 COMP. METAB OLIC PANEL sodium 140 mmol/ L 136-14 5 Not Available [address], [address], 02/28/2023 14:17:35 02/29/20 23 02/28/2023 COMP. METAB OLIC PANEL potassium 5.5 mmol/ L 3.5-5. 1 high CWP=C onsis tent with previ ous. Not Available [address], [address], 02/28/2023 14:17:35 02/29/20 23 02/28/2023 COMP. METAB OLIC PANEL chloride 97 mmol/ L 96-107 Not Available [address], [address], 02/28/2023 14:17:35 02/29/20 23 02/28/2023 COMP. METAB OLIC PANEL anion gap 6.0 5.0-15 .0 Not Available [address], [address], 02/28/2023 14:17:35 02/29/20 23 02/28/2023 COMP. METAB OLIC PANEL CO2 37 mmol/ L 21-32 high Not Available [address], [address], 02/28/2023 14:17:35 02/29/20 23 02/28/2023 COMP. METAB OLIC PANEL calcium 9.1 mg/dL 8.5-10 .3 Not Available [address], [address], 02/28/2023 14:17:35 02/29/20 23 02/28/2023 COMP. METAB OLIC PANEL total protein 6.7 g/dL 6.4-8. 2 Not Available [address], [address], 02/28/2023 14:17:35 02/29/20 23 02/28/2023 COMP. METAB OLIC PANEL albumin 3.5 g/dL 3.4-5. 0 Not Available [address], [address], 02/28/2023 14:17:35 02/29/20 23 02/28/2023 COMP. METAB OLIC PANEL globulin 3.2 g/dL Not Available [address], [address], 02/28/2023 14:17:35 02/29/20 23 02/28/2023 COMP. METAB OLIC PANEL A/G 1.1 ratio 0.8-2. 0 Not Available [address], [address], 02/28/2023 14:17:35 02/29/20 23 02/28/2023 COMP. METAB OLIC PANEL total bilirubin 0.20 mg/dL 0.00-1 .00 Not Available [address], [address], 02/28/2023 14:17:35 02/29/20 23 02/28/2023 COMP. METAB OLIC PANEL AST 15 U/L 0-37 Not Available [address], [address], 02/28/2023 14:17:35 02/29/20 23 02/28/2023 COMP. METAB OLIC PANEL ALT 26 U/L 6-63 Not Available [address], [address], 02/28/2023 14:17:35 02/29/20 23 02/28/2023 COMP. METAB OLIC PANEL alk. phos. 88 U/L 50-136 Not Available [address], [address], 02/28/2023 14:17:35 02/29/20 23 02/28/2023 LIPID PANEL cholesterol 147 mg/dL <200 mg/dl Aliyah able 200-2 39 mg/dl Borde rline High >240 mg/dl High Not Available [address], [address], 02/28/2023 14:17:37 02/29/20 23 02/28/2023 LIPID PANEL triglyceride s 78 mg/dL <150 mg/dL Remedios l 150-1 99 mg/dL Borde rline High 200-4 99 mg/dL High >500 mg/dL Very High Not Available [address], [address], 02/28/2023 14:17:37 02/29/20 23 02/28/2023 LIPID PANEL direct HDL 61 mg/dL <40 mg/dl - Major Risk for CHD >60 mg/dl - Negat jax Risk for CHD Not Available [address], [address], 02/28/2023 14:17:37 02/29/2002/28/2023 DIREC T LDL direct LDL 65 mg/dL RISK CATEG ORY LDL GOAL _ CHD or CHD Risk Equiv alent s <100 mg/dl (10-y ear risk >20%) 2+ Risk Facto rs <130 mg/dl (10-y ear risk <= 20%) 0-1 Risk Facto r <160 mg/dl Almo st all peopl e with 0-1 risk facto r have a 10 year risk <10%, thus 10 year risk asses ment in peopl e with 0-1 risk facto r is not neces keven. Not Available [address], [id number], 02/28/2023 14:17:38 03/03/20 23 03/03/2023 URINA LYSIS W/REF GURJIT URINE CULTU RE color Yellow yellow Not Available [facility] [address] [place], [id number], 03/03/2023 22:57:54 03/03/20 23 03/03/2023 URINA LYSIS W/REF GURJIT URINE CULTU RE clarity Clear Not Available [facility] [address] [place], [id number], 03/03/2023 22:57:54 03/03/20 23 03/03/2023 URINA LYSIS W/REF GURJIT URINE CULTU RE glucose Negati ve negati ve Not Available [facility] [address] [place], [id number], 03/03/2023 22:57:54 03/03/20 23 03/03/2023 URINA LYSIS W/REF GURJIT URINE CULTU RE bili Negati ve negati ve Not Available [facility] [address] [place], [id number], 03/03/2023 22:57:54 03/03/20 23 03/03/2023 URINA LYSIS W/REF GURJIT URINE CULTU RE ketones Negati ve negati ve Not Available [facility] [address] [place], [id number], 03/03/2023 22:57:54 03/03/20 23 03/03/2023 URINA LYSIS W/REF GURJIT URINE CULTU RE specific gravity 1.010 1.005- 1.030 Not Available [facility] [address] [place], [address], 03/03/2023 22:57:54 03/03/20 23 03/03/2023 URINA LYSIS W/REF GURJIT URINE CULTU RE blood Negati ve negati ve Not Available [facility] [address] [place], [id number], 03/03/2023 22:57:54 03/03/20 23 03/03/2023 URINA LYSIS W/REF GURJIT URINE CULTU RE pH 6.0 5.0-8. 0 Not Available [facility] [address] [place], [id number], 03/03/2023 22:57:54 03/03/20 23 03/03/2023 URINA LYSIS W/REF GURJIT URINE CULTU RE protein Negati ve negati ve Not Available [facility] [address] [place], [id number], 03/03/2023 22:57:54 03/03/20 23 03/03/2023 URINA LYSIS W/REF GURJIT URINE CULTU RE nitrite Negati ve negati ve Not Available [facility] [address] [place], [address], 03/03/2023 22:57:54 03/03/20 23 03/03/2023 URINA LYSIS W/REF GURJIT URINE CULTU RE leukocyte esterase, ur Negati ve negati ve Not Available [facility] (Outpatient) [address] [place], [address], 03/03/2023 22:57:54 03/03/20 23 03/03/2023 URINA LYSIS W/REF GURJIT URINE CULTU RE WBC NONE SEEN /hpf none seen Not Available [facility] (Outpatient) [address] [place], [address], 03/03/2023 22:57:54 03/03/20 23 03/03/2023 URINA LYSIS W/REF GURJIT URINE CULTU RE RBC NONE SEEN /hpf none seen Not Available [facility] (Outpatient) [address] [place], [address], 03/03/2023 22:57:54 03/03/20 23 03/03/2023 URINA LYSIS W/REF GURJIT URINE CULTU RE urine epithelial NONE SEEN none seen Not Available [facility] (Outpatient) [address] [place], [address], 03/03/2023 22:57:54 03/03/20 23 03/03/2023 URINA LYSIS W/REF GURJIT URINE CULTU RE mucus NONE SEEN /hpf none seen Not Available [facility] (Outpatient) [address] [place], [address], 03/03/2023 22:57:54 03/03/20 23 03/03/2023 URINA LYSIS W/REF GURJIT URINE CULTU RE bacteria NONE SEEN /hpf none seen Not Available [facility] (Outpatient) [address] [place], [address], 03/03/2023 22:57:54 03/03/20 23 03/03/2023 CBC AND DIFFE RENTI AL WBC 12.32 K/uL 4.00-1 1.00 high Not Available [facility] (Outpatient) [address] [place], [address], 03/03/2023 16:28:07 03/03/20 23 03/03/2023 CBC AND DIFFE RENTI AL RBC 4.14 M/uL 3.90-5 .69 Not Available [facility] (Outpatient) [address] [place], [address], 03/03/2023 16:28:07 03/03/20 23 03/03/2023 CBC AND DIFFE RENTI AL HGB 9.8 g/dL 12.4-1 7.3 low Not Available [facility] (Outpatient) [address] [place], [address], 03/03/2023 16:28:07 03/03/20 23 03/03/2023 CBC AND DIFFE RENTI AL HCT 32.9 % 37.0-5 1.0 low Not Available [facility] (Outpatient) [address] [place], [address], 03/03/2023 16:28:07 03/03/20 23 03/03/2023 CBC AND DIFFE RENTI AL plt 614 K/uL 140-43 0 high Not Available [facility] (Outpatient) [address] [place], [address], 03/03/2023 16:28:07 03/03/20 23 03/03/2023 CBC AND DIFFE RENTI AL MCV 79.5 fL 78.0-9 7.0 Not Available [facility] (Outpatient) [address] [place], [address], 03/03/2023 16:28:07 03/03/20 23 03/03/2023 CBC AND DIFFE RENTI AL MCH 23.7 pg 25.0-3 3.0 low Not Available [facility] (Outpatient) [address] [place] [address], [id number], 03/03/2023 16:28:07 03/03/20 23 03/03/2023 CBC AND DIFFE RENTI AL MCHC 29.8 g/dL 32.0-3 6.0 low Not Available [facility] (Outpatient) [address] [place] [address], [id number], 03/03/2023 16:28:07 03/03/20 23 03/03/2023 CBC AND DIFFE RENTI AL RDW 17.4 % 11.0-1 5.0 high Not Available [facility] (Outpatient) [address] [place], [address], 03/03/2023 16:28:07 03/03/20 23 03/03/2023 CBC AND DIFFE RENTI AL MPV 9.6 fL 8.4-12 .8 Not Available [facility] (Outpatient) [address] [place], [address], 03/03/2023 16:28:07 03/03/20 23 03/03/2023 CBC AND DIFFE RENTI AL diff method Auto Not Available [facility] (Outpatient) [address] [place], [address], 03/03/2023 16:28:07 03/03/20 23 03/03/2023 CBC AND DIFFE RENTI AL neuts 72.9 % 43.0-7 5.0 Not Available [facility] (Outpatient) [address] [place], [address], 03/03/2023 16:28:07 03/03/20 23 03/03/2023 CBC AND DIFFE RENTI AL lymphs 14.2 % 18.2-4 7.4 low Not Available [facility] (Outpatient) [address] [place], [address], 03/03/2023 16:28:07 03/03/20 23 03/03/2023 CBC AND DIFFE RENTI AL monos 8.8 % 4.00-1 1.00 Not Available [facility] (Outpatient) [address] [place], [address], 03/03/2023 16:28:07 03/03/20 23 03/03/2023 CBC AND DIFFE RENTI AL eos 1.9 % 0.0-8. 0 Not Available [facility] (Outpatient) [address] [place], [address], 03/03/2023 16:28:07 03/03/20 23 03/03/2023 CBC AND DIFFE RENTI AL basos 1.1 % 0.0-2. 0 Not Available [facility] (Outpatient) [address] [place], [address], 03/03/2023 16:28:07 03/03/20 23 03/03/2023 CBC AND DIFFE RENTI AL granulocytes , immature (%) 1.1 % 0.0-0. 9 high Not Available [facility] (Outpatient) [address] [place], [address], 03/03/2023 16:28:07 03/03/20 23 03/03/2023 CBC AND DIFFE RENTI AL absolute neuts 8.98 K/uL 1.80-7 .70 high Not Available [facility] (Outpatient) [address] [place], [address], 03/03/2023 16:28:07 03/03/20 23 03/03/2023 CBC AND DIFFE RENTI AL absolute lymphs 1.75 K/uL 1.00-3 .10 Not Available [facility] (Outpatient) [address] [place], [address], 03/03/2023 16:28:07 03/03/20 23 03/03/2023 CBC AND DIFFE RENTI AL absolute monos 1.08 K/uL 0.20-0 .80 high Not Available [facility] (Outpatient) [address] [place], [address], 03/03/2023 16:28:07 03/03/20 23 03/03/2023 CBC AND DIFFE RENTI AL absolute eos 0.24 K/uL 0.00-0 .80 Not Available [facility] (Outpatient) [address] [place], [address], 03/03/2023 16:28:07 03/03/20 23 03/03/2023 CBC AND DIFFE RENTI AL absolute basos 0.14 K/uL 0.00-0 .09 high Not Available [facility] (Outpatient) [address] [place], [address], 03/03/2023 16:28:07 03/03/20 23 03/03/2023 CBC AND DIFFE RENTI AL granulocytes , immature 0.13 K/uL 0.00-0 .05 high Not Available [facility] (Outpatient) [address] [place], [address], 03/03/2023 16:28:07 03/03/20 23 03/03/2023 BASIC METAB OLIC PANEL sodium 135 mmol/ L 133-14 6 Not Available [facility] (Outpatient) [address] [place], [address], 03/03/2023 16:50:56 03/03/20 23 03/03/2023 BASIC METAB OLIC PANEL chloride 89 mmol/ L 96-108 low Not Available [facility] (Outpatient) [address] [place], [address], 03/03/2023 16:50:56 03/03/20 23 03/03/2023 BASIC METAB OLIC PANEL potassium 3.8 mmol/ L 3.3-5. 1 Not Available [facility] (Outpatient) [address] [place], [address], 03/03/2023 16:50:56 03/03/20 23 03/03/2023 BASIC METAB OLIC PANEL CO2 31 mmol/ L 21-35 Not Available [facility] (Outpatient) [address] [place], [address], 03/03/2023 16:50:56 03/03/20 23 03/03/2023 BASIC METAB OLIC PANEL BUN 26 mg/dL 6-19 high Not Available [facility] (Outpatient) [address] [place], [address], 03/03/2023 16:50:56 03/03/20 23 03/03/2023 BASIC METAB OLIC PANEL creatinine 1.80 mg/dL 0.5-1. 5 high Not Available [facility] (Outpatient) [address] [place], [address], 03/03/2023 16:50:56 03/03/20 23 03/03/2023 BASIC METAB OLIC PANEL glucose 123 mg/dL 70-99 high Not Available [facility] (Outpatient) [address] [place], [address], 03/03/2023 16:50:56 03/03/20 23 03/03/2023 BASIC METAB OLIC PANEL calcium 9.4 mg/dL 8.4-10 .3 Not Available [facility] (Outpatient) [address] [place], [address], 03/03/2023 16:50:56 03/03/20 23 03/03/2023 BASIC METAB OLIC PANEL eGFR 43 mL/mi n/1.7 3m2 >59 low Estim ated glome rular filtr ation rate calcu lated using the CKD-E PI refit equat ion. Not Available [facility] (Outpatient) [address] [place], [address], 03/03/2023 16:50:56 03/03/20 23 03/03/2023 BASIC METAB OLIC PANEL anion gap 19 mmol/ L 10-20 Not Available [facility] (Outpatient) [address] [place], [address], 03/03/2023 16:50:56 03/03/20 23 03/03/2023 LIPAS E lipase 116 U/L 16-63 high Not Available [facility] (Outpatient) [address] [place], [address], 03/03/2023 16:50:57 03/03/20 23 03/03/2023 LFTS (HEPA TIC PANEL ) alkaline phosphatase 97 U/L 39-117 Not Available [facility] (Outpatient) [address] [place], [address], 03/03/2023 16:50:58 03/03/20 23 03/03/2023 LFTS (HEPA TIC PANEL ) total bilirubin <0.2 mg/dL 0.0-1. 2 Not Available [facility] (Outpatient) [address] [place], [address], 03/03/2023 16:50:58 03/03/20 23 03/03/2023 LFTS (HEPA TIC PANEL ) direct bilirubin <0.2 mg/dL 0-0.3 Not Available [facility] (Outpatient) [address] [place], [address], 03/03/2023 16:50:58 03/03/20 23 03/03/2023 LFTS (HEPA TIC PANEL ) bilirubin (indirect) NOT CALCUL ATED mg/dL 0-1.5 Not Available [facility] (Outpatient) [address] [place], [address], 03/03/2023 16:50:58 03/03/20 23 03/03/2023 LFTS (HEPA TIC PANEL ) AST 22 U/L 0-37 Not Available [facility] (Outpatient) [address] [place], [address], 03/03/2023 16:50:58 03/03/20 23 03/03/2023 LFTS (HEPA TIC PANEL ) ALT 18 U/L 0-40 Not Available [facility] (Outpatient) [address] [place], [address], 03/03/2023 16:50:58 03/03/20 23 03/03/2023 LFTS (HEPA TIC PANEL ) total protein 7.4 g/dL 6.5-8. 0 Not Available [facility] (Outpatient) [address] [place], [address], 03/03/2023 16:50:58 03/03/20 23 03/03/2023 LFTS (HEPA TIC PANEL ) albumin 4.6 g/dL 3.9-4. 8 Not Available [facility] (Outpatient) [address] [place], [address], 03/03/2023 16:50:58 03/03/20 23 03/03/2023 LFTS (HEPA TIC PANEL ) globulin 2.8 g/dL 1-4.8 Not Available [facility] (Outpatient) [address] [place], [address], 03/03/2023 16:50:58 03/03/20 23 03/03/2023 LFTS (HEPA TIC PANEL ) A/G ratio 1.64 ratio 1.00-4 .80 Not Available [facility] (Outpatient) [address] [place], [address], 03/03/2023 16:50:58 03/03/20 23 03/03/2023 MAGNE SIUM magnesium 2.2 mg/dL 1.6-2. 6 Not Available [facility] (Outpatient) [address] [place], [address], 03/03/2023 16:50:59 03/03/20 23 03/03/2023 TYPE AND SCREE N (ABO, RH,AN TIBOD Y SCREE N) ABO/Rh O Positi ve Not Available [facility] (Outpatient) [address] [place] [address], [id number], 03/03/2023 17:32:41 03/03/20 23 03/03/2023 TYPE AND SCREE N (ABO, RH,AN TIBOD Y SCREE N) antibody screen Negati ve Not Available [facility] (Outpatient) [address] [place] [address], [address], 03/03/2023 17:32:41 03/03/20 23 03/03/2023 TYPE AND SCREE N (ABO, RH,AN TIBOD Y SCREE N) expiration date of sample 2022,2 359 Not Available [facility] (Outpatient) [address] [place], [address], 03/03/2023 17:32:41 03/03/20 23 03/03/2023 TYPE AND SCREE N (ABO, RH,AN TIBOD Y SCREE N) type and screen - comment Patien t is O neg but receiv ed 2 O pos units on 3 Not Available [facility] (Outpatient) [address] [place] [address], [id number], 03/03/2023 17:32:41 03/03/20 23 03/03/2023 TYPE AND SCREE N (ABO, RH,AN TIBOD Y SCREE N) resulting agency [facility] Not Available [facility] (Outpatient) [address] [place], [address], 03/03/2023 17:32:41 03/03/20 23 03/03/2023 CREAT ININE , RANDO M URINE urine creatinine 90 mg/dL Not Available [facility] (Outpatient) [address] [place], [address], 03/03/2023 21:06:17 03/03/20 23 03/03/2023 SODIU M, RANDO M URINE urine sodium 47 mmol/ L Not Available [facility] (Outpatient) [address] [place], [address], 03/03/2023 21:06:18 03/03/20 23 03/04/2023 EOSIN OPHIL S, SPUTU M neutrophils (manual) None Not Available [facility] (Outpatient) [address] [place], [address], 03/04/2023 10:12:22 03/03/20 23 03/04/2023 EOSIN OPHIL S, SPUTU M smear for eos None none Not Available [facility] (Outpatient) [address] [place], [address], 03/04/2023 10:12:22 03/03/20 23 03/04/2023 EOSIN OPHIL S, SPUTU M specimen source/descr iption RANDOM URINE Not Available [facility] (Outpatient) [address] [place] [address], [id number], 03/04/2023 10:12:22 03/04/20 23 03/04/2023 PT-IN R PT 12.6 sec 10.2-1 2.9 Not Available [facility] (Outpatient) [address] [place], [address], 03/04/2023 06:02:47 03/04/2003/04/2023 PT-IN R INR 1.1 0.9-1. 1 Thera peuti c range for oral Vitam in K antag onist s: 2.0-3 .5 Not Available [facility] (Outpatient) [address] [place], [address], 03/04/2023 06:02:47 03/04/20 23 03/04/2023 CBC AND DIFFE RENTI AL WBC 10.47 K/uL 4.00-1 1.00 Not Available [facility] (Outpatient) [address] [place], [address], 03/04/2023 06:17:01 03/04/20 23 03/04/2023 CBC AND DIFFE RENTI AL RBC 3.33 M/uL 3.90-5 .69 low Not Available [facility] (Outpatient) [address] [place], [address], 03/04/2023 06:17:01 03/04/20 23 03/04/2023 CBC AND DIFFE RENTI AL HGB 7.7 g/dL 12.4-1 7.3 low Not Available [facility] (Outpatient) [address] [place] [address], [id number], 03/04/2023 06:17:01 03/04/20 23 03/04/2023 CBC AND DIFFE RENTI AL HCT 26.8 % 37.0-5 1.0 low Not Available [facility] (Outpatient) [address] [place] [address], [address], 03/04/2023 06:17:01 03/04/20 23 03/04/2023 CBC AND DIFFE RENTI AL plt 465 K/uL 140-43 0 high Not Available [facility] (Outpatient) [address] [place] [address], [address], 03/04/2023 06:17:01 03/04/20 23 03/04/2023 CBC AND DIFFE RENTI AL MCV 80.5 fL 78.0-9 7.0 Not Available [facility] (Outpatient) [address] [place], [address], 03/04/2023 06:17:01 03/04/20 23 03/04/2023 CBC AND DIFFE RENTI AL MCH 23.1 pg 25.0-3 3.0 low Not Available [facility] (Outpatient) [address] [place], [address], 03/04/2023 06:17:01 03/04/20 23 03/04/2023 CBC AND DIFFE RENTI AL MCHC 28.7 g/dL 32.0-3 6.0 low Not Available [facility] (Outpatient) [address] [place] [address], [id number], 03/04/2023 06:17:01 03/04/20 23 03/04/2023 CBC AND DIFFE RENTI AL RDW 17.6 % 11.0-1 5.0 high Not Available [facility] (Outpatient) [address] [place] [address], [id number], 03/04/2023 06:17:01 03/04/2003/04/2023 CBC AND DIFFE RENTI AL MPV 9.6 fL 8.4-12 .8 Not Available [facility] (Outpatient) [address] [place], [address], 03/04/2023 06:17:01 03/04/2003/04/2023 CBC AND DIFFE RENTI AL diff method Auto Not Available [facility] (Outpatient) [address] [place], [address], 03/04/2023 06:17:01 03/04/20 23 03/04/2023 CBC AND DIFFE RENTI AL neuts 61.4 % 43.0-7 5.0 Not Available [facility] (Outpatient) [address] [place], [address], 03/04/2023 06:17:01 03/04/20 23 03/04/2023 CBC AND DIFFE RENTI AL lymphs 21.5 % 18.2-4 7.4 Not Available [facility] (Outpatient) [address] [place], [address], 03/04/2023 06:17:01 03/04/20 23 03/04/2023 CBC AND DIFFE RENTI AL monos 11.3 % 4.00-1 1.00 high Not Available [facility] (Outpatient) [address] [place] [address], [address], 03/04/2023 06:17:01 03/04/2003/04/2023 CBC AND DIFFE RENTI AL eos 3.5 % 0.0-8. 0 Not Available [facility] (Outpatient) [address] [place], [address], 03/04/2023 06:17:01 03/04/2003/04/2023 CBC AND DIFFE RENTI AL basos 1.2 % 0.0-2. 0 Not Available [facility] (Outpatient) [address] [place] [address], [address], 03/04/2023 06:17:01 03/04/2003/04/2023 CBC AND DIFFE RENTI AL granulocytes , immature (%) 1.1 % 0.0-0. 9 high Not Available [facility] (Outpatient) [address] [place] [address], [id number], 03/04/2023 06:17:01 03/04/2003/04/2023 CBC AND DIFFE RENTI AL absolute neuts 6.43 K/uL 1.80-7 .70 Not Available [facility] (Outpatient) [address] [place] [address], [id number], 03/04/2023 06:17:01 03/04/20 23 03/04/2023 CBC AND DIFFE RENTI AL absolute lymphs 2.25 K/uL 1.00-3 .10 Not Available [facility] (Outpatient) [address] [place], [address], 03/04/2023 06:17:01 03/04/20 23 03/04/2023 CBC AND DIFFE RENTI AL absolute monos 1.18 K/uL 0.20-0 .80 high Not Available [facility] (Outpatient) [address] [place], [address], 03/04/2023 06:17:01 03/04/20 23 03/04/2023 CBC AND DIFFE RENTI AL absolute eos 0.37 K/uL 0.00-0 .80 Not Available [facility] (Outpatient) [address] [place], [address], 03/04/2023 06:17:01 03/04/20 23 03/04/2023 CBC AND DIFFE RENTI AL absolute basos 0.13 K/uL 0.00-0 .09 high Not Available [facility] (Outpatient) [address] [place], [address], 03/04/2023 06:17:01 03/04/20 23 03/04/2023 CBC AND DIFFE RENTI AL granulocytes , immature 0.11 K/uL 0.00-0 .05 high Not Available [facility] (Outpatient) [address] [place], [address], 03/04/2023 06:17:01 03/04/20 23 03/04/2023 BASIC METAB OLIC PANEL sodium 138 mmol/ L 133-14 6 Not Available [facility] (Outpatient) [address] [place], [address], 03/04/2023 06:17:52 03/04/20 23 03/04/2023 BASIC METAB OLIC PANEL chloride 98 mmol/ L 96-108 Not Available [facility] (Outpatient) [address] [place], [address], 03/04/2023 06:17:52 03/04/20 23 03/04/2023 BASIC METAB OLIC PANEL potassium 4.7 mmol/ L 3.3-5. 1 Not Available [facility] (Outpatient) [address] [place], [address], 03/04/2023 06:17:52 03/04/20 23 03/04/2023 BASIC METAB OLIC PANEL CO2 36 mmol/ L 21-35 high Not Available [facility] (Outpatient) [address] [place], [address], 03/04/2023 06:17:52 03/04/20 23 03/04/2023 BASIC METAB OLIC PANEL BUN 27 mg/dL 6-19 high Not Available [facility] (Outpatient) [address] [place], [address], 03/04/2023 06:17:52 03/04/20 23 03/04/2023 BASIC METAB OLIC PANEL creatinine 1.30 mg/dL 0.5-1. 5 Not Available [facility] (Outpatient) [address] [place], [address], 03/04/2023 06:17:52 03/04/20 23 03/04/2023 BASIC METAB OLIC PANEL glucose 109 mg/dL 70-99 high Not Available [facility] (Outpatient) [address] [place], [address], 03/04/2023 06:17:52 03/04/20 23 03/04/2023 BASIC METAB OLIC PANEL calcium 8.8 mg/dL 8.4-10 .3 Not Available [facility] (Outpatient) [address] [place], [address], 03/04/2023 06:17:52 03/04/20 23 03/04/2023 BASIC METAB OLIC PANEL eGFR 63 mL/mi n/1.7 3m2 >59 Estim ated glome rular filtr ation rate calcu lated using the CKD-E PI refit equat ion. Not Available [facility] (Outpatient) [address] [place], [address], 03/04/2023 06:17:52 03/04/20 23 03/04/2023 BASIC METAB OLIC PANEL anion gap 9 mmol/ L 10-20 low Not Available [facility] (Outpatient) [address] [place], [address], 03/04/2023 06:17:52 03/04/20 23 03/04/2023 MAGNE SIUM magnesium 2.3 mg/dL 1.6-2. 6 Not Available [facility] (Outpatient) [address] [place], [address], 03/04/2023 06:17:53 03/04/20 23 03/04/2023 PHOSP HORUS phosphorus 4.4 mg/dL 2.7-4. 5 Not Available [facility] (Outpatient) [address] [place], [address], 03/04/2023 06:17:54 03/04/20 23 03/04/2023 IRON iron 15 ug/dL 45-160 low Not Available [facility] (Outpatient) [address] [place], [address], 03/04/2023 15:24:10 03/04/20 23 03/05/2023 SERUM PROTE IN ELECT ROPHO RESIS W/O IMMUN OGLOB ULINS AND IMMUN OFIXA TION total protein 5.9 g/dL 6.3-7. 9 low Not Available [facility] (Outpatient) [address] [place], [address], 03/05/2023 14:52:35 03/04/20 23 03/05/2023 SERUM PROTE IN ELECT ROPHO RESIS W/O IMMUN OGLOB ULINS AND IMMUN OFIXA TION albumin 2.8 g/dL 3.4-4. 7 low Not Available [facility] (Outpatient) [address] [place], [address], 03/05/2023 14:52:35 03/04/20 23 03/05/2023 SERUM PROTE IN ELECT ROPHO RESIS W/O IMMUN OGLOB ULINS AND IMMUN OFIXA TION alpha-1 globulin 0.3 g/dL 0.1-0. 3 Not Available [facility] (Outpatient) [address] [place], [address], 03/05/2023 14:52:35 03/04/20 23 03/05/2023 SERUM PROTE IN ELECT ROPHO RESIS W/O IMMUN OGLOB ULINS AND IMMUN OFIXA TION alpha-2 globulin 1.1 g/dL 0.6-1. 0 high Not Available [facility] (Outpatient) [address] [place], [address], 03/05/2023 14:52:35 03/04/20 23 03/05/2023 SERUM PROTE IN ELECT ROPHO RESIS W/O IMMUN OGLOB ULINS AND IMMUN OFIXA TION beta-globuli n 1.0 g/dL 0.7-1. 2 Not Available [facility] (Outpatient) [address] [place], [address], 03/05/2023 14:52:35 03/04/20 23 03/05/2023 SERUM PROTE IN ELECT ROPHO RESIS W/O IMMUN OGLOB ULINS AND IMMUN OFIXA TION gamma-globul in 0.7 g/dL 0.6-1. 6 Not Available [facility] (Outpatient) [address] [place], [address], 03/05/2023 14:52:35 03/04/20 23 03/05/2023 SERUM PROTE IN ELECT ROPHO RESIS W/O IMMUN OGLOB ULINS AND IMMUN OFIXA TION A/G ratio 0.90 Not Available [facility] (Outpatient) [address] [place], [address], 03/05/2023 14:52:35 03/04/20 23 03/05/2023 SERUM PROTE IN ELECT ROPHO RESIS W/O IMMUN OGLOB ULINS AND IMMUN OFIXA TION M spike g/dL Test compo nent not appli cable or not repor tracy. Test compo nent not appli cable or not repor tracy. Not Available [facility] (Outpatient) [address] [place], [address], 03/05/2023 14:52:35 03/04/20 23 03/05/2023 SERUM PROTE IN ELECT ROPHO RESIS W/O IMMUN OGLOB ULINS AND IMMUN OFIXA TION impression SEE NOTE (NOTE ) No appar ent monoc lonal prote in on serum elect ropho resis . Not Available [facility] (Outpatient) [address] [place], [address], 03/05/2023 14:52:35 03/08/20 23 03/08/2023 RBC MORPH OLOGY hypochrom 1+ Not Available [address], [address], 03/08/2023 12:15:40 03/08/20 23 03/08/2023 RBC MORPH OLOGY poik 1+ Not Available [address], [address], 03/08/2023 12:15:40 03/08/20 23 03/08/2023 RBC MORPH OLOGY aniso 1+ Not Available [address], [address], 03/08/2023 12:15:40 03/08/20 23 03/08/2023 CBC WBC 11.34 K/ L 4.23-9 .07 high Not Available [address] [place], [address], 03/08/2023 12:16:05 03/08/20 23 03/08/2023 CBC RBC 3.75 M/ L 4.63-6 .08 low Not Available [address], [address], 03/08/2023 12:16:05 03/08/20 23 03/08/2023 CBC HGB 8.4 g/dL 13.7-1 7.5 low Not Available [address], [address], 03/08/2023 12:16:05 03/08/2003/08/2023 CBC HCT 29.1 % 40.1-5 1.0 low Not Available [address], [address], 03/08/2023 12:16:05 03/08/2003/08/2023 CBC MCV 77.6 fL 79.0-9 2.2 low Not Available [address], [address], 03/08/2023 12:16:05 03/08/2003/08/2023 CBC MCH 22.4 pg 25.7-3 2.2 low Not Available [address], [address], 03/08/2023 12:16:05 03/08/2003/08/2023 CBC MCHC 28.9 g/dL 32.3-3 6.5 low SREV= [facility]ie [facility]. Not Available [address], [address], 03/08/2023 12:16:05 03/08/2003/08/2023 CBC plt 548 K/ L 163-33 7 high Not Available [address], [address], 03/08/2023 12:16:03/08/20 23 03/08/2023 CBC MPV 10.5 fL 9.4-12 .4 Not Available [address], [address], 03/08/2023 12:16:03/08/2003/08/2023 CBC neut% 74.8 % 34.0-6 7.9 high Not Available [address], [address], 03/08/2023 12:16:03/08/20 23 03/08/2023 CBC neut# 8.48 1.78-5 .38 high Not Available [address], [address], 03/08/2023 12:16:03/08/20 23 03/08/2023 CBC lymph % 12.7 % 21.8-5 3.1 low Not Available [address], [address], 03/08/2023 12:16:03/08/20 23 03/08/2023 CBC lymph # 1.44 K/ L 1.32-3 .57 Not Available [address], [address], 03/08/2023 12:16:03/08/2003/08/2023 CBC mono% 8.6 % 5.3-12 .2 Not Available [address], [address], 03/08/2023 12:16:03/08/2003/08/2023 CBC mono# 0.97 0.30-0 .82 high Not Available [address], [address], 03/08/2023 12:16:05 03/08/20 23 03/08/2023 CBC eo% 2.3 % 0.8-7. 0 Not Available [address], [address], 03/08/2023 12:16:05 03/08/20 23 03/08/2023 CBC eo# 0.26 0.04-0 .54 Not Available [address], [address], 03/08/2023 12:16:05 03/08/20 23 03/08/2023 CBC baso% 1.1 % 0.2-1. 2 Not Available [address], [address], 03/08/2023 12:16:05 03/08/2003/08/2023 CBC baso# 0.13 0.00-0 .08 high Not Available [address] [address], [address], 03/08/2023 12:16:05 03/08/2003/08/2023 CBC RDW-CV 18.4 % 11.6-1 4.4 high Not Available [address], [address], 03/08/2023 12:16:05 03/08/2003/08/2023 CBC Ig% 0.500 % 0.000- 1.500 Ig % >0.5 Indic ates possi ble Left Shift Not Available [address], [address], 03/08/2023 12:16:05 03/08/2003/08/2023 CBC Ig# 0.060 0.000- 0.093 Not Available [address], [address], 03/08/2023 12:16:03/08/2003/08/2023 CBC NRBC% 0.0 % 0.0-0. 2 Not Available [address], [address], 03/08/2023 12:16:03/08/2003/08/2023 CBC NRBC# 0.000 0.000- 0.012 Not Available [facility] [address] [place], [address], 03/08/2023 12:16:05 03/15/2003/15/2023 CBC WBC 10.31 K/uL 4.00-1 1.00 Not Available [facility] [address] [place], [address], 03/15/2023 09:48:56 03/15/2003/15/2023 CBC RBC 3.84 M/uL 3.90-5 .69 low Not Available [facility] [address] [place], [address], 03/15/2023 09:48:56 03/15/2003/15/2023 CBC HGB 8.4 g/dL 12.4-1 7.3 low Not Available [facility] [address] [place], [address], 03/15/2023 09:48:56 03/15/2003/15/2023 CBC HCT 29.7 % 37.0-5 1.0 low Not Available [facility] [address] [place], [address], 03/15/2023 09:48:56 03/15/2003/15/2023 CBC plt 542 K/uL 140-43 0 high Not Available [facility] [address] [place], [address], 03/15/2023 09:48:56 03/15/2003/15/2023 CBC MCV 77.3 fL 78.0-9 7.0 low Not Available [facility] [address] [place], [address], 03/15/2023 09:48:56 03/15/2003/15/2023 CBC MCH 21.9 pg 25.0-3 3.0 low Not Available [facility] [address] [place], [address], 03/15/2023 09:48:56 03/15/20 23 03/15/2023 CBC MCHC 28.3 g/dL 32.0-3 6.0 low Not Available [facility] [address] [place], [address], 03/15/2023 09:48:56 03/15/20 23 03/15/2023 CBC RDW 18.9 % 11.0-1 5.0 high Not Available [facility] [address] [place], [address], 03/15/2023 09:48:56 03/15/20 23 03/15/2023 CBC MPV 10.3 fL 8.4-12 .8 Not Available [facility] [address] [place], [address], 03/15/2023 09:48:56 03/15/20 23 03/15/2023 BASIC METAB OLIC PANEL sodium 137 mmol/ L 133-14 6 Not Available [facility] [address] [place], [address], 03/15/2023 10:15:31 03/15/20 23 03/15/2023 BASIC METAB OLIC PANEL chloride 90 mmol/ L 96-108 low Not Available [facility] [address] [place], [address], 03/15/2023 10:15:31 03/15/20 23 03/15/2023 BASIC METAB OLIC PANEL potassium 3.5 mmol/ L 3.3-5. 1 Not Available [facility] [address] [place], [address], 03/15/2023 10:15:31 03/15/20 23 03/15/2023 BASIC METAB OLIC PANEL CO2 38 mmol/ L 21-35 high Not Available [facility] [address] [place], [address], 03/15/2023 10:15:31 03/15/20 23 03/15/2023 BASIC METAB OLIC PANEL BUN 16 mg/dL 6-19 Not Available [facility] [address] [place], [address], 03/15/2023 10:15:31 03/15/20 23 03/15/2023 BASIC METAB OLIC PANEL creatinine 1.30 mg/dL 0.5-1. 5 Not Available [facility] [address] [place], [address], 03/15/2023 10:15:31 03/15/20 23 03/15/2023 BASIC METAB OLIC PANEL glucose 109 mg/dL 70-99 high Not Available [facility] [address] [place], [address], 03/15/2023 10:15:31 03/15/20 23 03/15/2023 BASIC METAB OLIC PANEL calcium 9.2 mg/dL 8.4-10 .3 Not Available [facility] [address] [place], [address], 03/15/2023 10:15:31 03/15/20 23 03/15/2023 BASIC METAB OLIC PANEL eGFR 63 mL/mi n/1.7 3m2 >59 Estim ated glome rular filtr ation rate calcu lated using the CKD-E PI refit equat ion. Not Available [facility] [address] [place], [address], 03/15/2023 10:15:31 03/15/20 23 03/15/2023 BASIC METAB OLIC PANEL anion gap 13 mmol/ L 10-20 Not Available [facility] [address] [place], [address], 03/15/2023 10:15:31 03/15/20 23 03/15/2023 DELMA TIN ferritin 13 ug/L 30-400 low Not Available [facility] [address] [place], [address], 03/15/2023 10:26:43 03/15/20 23 03/15/2023 NT-KS OBNP nt-probnp 137 pg/mL 0-125 high Not Available [facility] [address] [place], [address], 03/15/2023 10:26:44 03/15/20 23 03/15/2023 IRON AND IRON CLAUDIA NG CAPAC ITY iron 16 ug/dL 45-160 low Not Available [facility] [address] [place], [address], 03/15/2023 10:26:45 03/15/20 23 03/15/2023 IRON AND IRON CLAUDIA NG CAPAC ITY iron binding capacity 423 ug/dL 228-42 8 Not Available [facility] [address] [place], [address], 03/15/2023 10:26:45 03/15/20 23 03/15/2023 IRON AND IRON CLAUDIA NG CAPAC ITY transferrin saturat. 4 % 20-55 low Not Available [facility] [address] [place], [address], 03/15/2023 10:26:45 03/22/20 23 03/22/2023 RBC MORPH OLOGY hypochrom Slight Not Available [address], [address], 03/22/2023 17:14:40 03/22/20 23 03/22/2023 RBC MORPH OLOGY aniso Slight Not Available [address], [address], 03/22/2023 17:14:40 03/22/20 23 03/22/2023 CBC WBC 10.49 K/ L 4.23-9 .07 high Not Available [address], [address], 03/22/2023 17:15:20 03/22/20 23 03/22/2023 CBC RBC 3.77 M/ L 4.63-6 .08 low Not Available [address], [address], 03/22/2023 17:15:20 03/22/20 23 03/22/2023 CBC HGB 8.1 g/dL 13.7-1 7.5 low Not Available [address], [address], 03/22/2023 17:15:20 03/22/20 23 03/22/2023 CBC HCT 28.3 % 40.1-5 1.0 low Not Available [address], [address], 03/22/2023 17:15:20 03/22/20 23 03/22/2023 CBC MCV 75.1 fL 79.0-9 2.2 low Not Available [address], [address], 03/22/2023 17:15:20 03/22/20 23 03/22/2023 CBC MCH 21.5 pg 25.7-3 2.2 low Not Available [address], [address], 03/22/2023 17:15:20 03/22/20 23 03/22/2023 CBC MCHC 28.6 g/dL 32.3-3 6.5 low SREV= Slide revie wed by [facility]. Not Available [address], [address], 03/22/2023 17:15:20 03/22/20 23 03/22/2023 CBC plt 503 K/ L 163-33 7 high Not Available [address], [address], 03/22/2023 17:15:20 03/22/20 23 03/22/2023 CBC MPV 10.0 fL 9.4-12 .4 Not Available [address], [address], 03/22/2023 17:15:20 03/22/20 23 03/22/2023 CBC neut% 70.4 % 34.0-6 7.9 high Not Available [address], [address], 03/22/2023 17:15:20 03/22/20 23 03/22/2023 CBC neut# 7.38 1.78-5 .38 high Not Available [address], [address], 03/22/2023 17:15:20 03/22/20 23 03/22/2023 CBC lymph % 16.0 % 21.8-5 3.1 low Not Available [address], [address], 03/22/2023 17:15:20 03/22/20 23 03/22/2023 CBC lymph # 1.68 K/ L 1.32-3 .57 Not Available [address], [address], 03/22/2023 17:15:20 03/22/20 23 03/22/2023 CBC mono% 9.6 % 5.3-12 .2 Not Available [address], [address], 03/22/2023 17:15:20 03/22/20 23 03/22/2023 CBC mono# 1.01 0.30-0 .82 high Not Available [address], [address], 03/22/2023 17:15:20 03/22/20 23 03/22/2023 CBC eo% 2.1 % 0.8-7. 0 Not Available [address], [address], 03/22/2023 17:15:20 03/22/20 23 03/22/2023 CBC eo# 0.22 0.04-0 .54 Not Available [address], [address], 03/22/2023 17:15:20 03/22/20 23 03/22/2023 CBC baso% 1.0 % 0.2-1. 2 Not Available [address], [address], 03/22/2023 17:15:20 03/22/20 23 03/22/2023 CBC baso# 0.11 0.00-0 .08 high Not Available [address], [address], 03/22/2023 17:15:20 03/22/20 23 03/22/2023 CBC RDW-CV 19.4 % 11.6-1 4.4 high SREV= Slide revie wed by [facility]. Not Available [address], [address], 03/22/2023 17:15:20 03/22/20 23 03/22/2023 CBC Ig% 0.900 % 0.000- 1.500 Ig % >0.5 Indic ates possi ble Left Shift Not Available [address], [address], 03/22/2023 17:15:20 03/22/20 23 03/22/2023 CBC Ig# 0.090 0.000- 0.093 Not Available [address], [address], 03/22/2023 17:15:20 03/22/20 23 03/22/2023 CBC NRBC% 0.0 % 0.0-0. 2 Not Available [address], [address], 03/22/2023 17:15:20 03/22/20 23 03/22/2023 CBC NRBC# 0.000 0.000- 0.012 Not Available [address], [address], 03/22/2023 17:15:20 04/05/20 23 04/06/2023 CBC (INCL UDES DIFF/ PLT) white blood cell count 12.2 thous and/u L 3.8-10 .8 high Not Available [facility] [address], [address], 04/06/2023 11:22:35 04/05/20 23 04/06/2023 CBC (INCL UDES DIFF/ PLT) red blood cell count 3.77 fany on/uL 4.20-5 .80 low Not Available [facility] [address], [place], [address], 04/06/2023 11:22:35 04/05/20 23 04/06/2023 CBC (INCL UDES DIFF/ PLT) hemoglobin 8.4 g/dL 13.2-1 7.1 low Not Available [facility] [address], [place], [address], 04/06/2023 11:22:35 04/05/20 23 04/06/2023 CBC (INCL UDES DIFF/ PLT) hematocrit 30.1 % 38.5-5 0.0 low Not Available [facility] [address], [address], 04/06/2023 11:22:35 04/05/20 23 04/06/2023 CBC (INCL UDES DIFF/ PLT) MCV 79.8 fL 80.0-1 00.0 low Not Available [facility] [address], [place], [address], 04/06/2023 11:22:35 04/05/20 23 04/06/2023 CBC (INCL UDES DIFF/ PLT) MCH 22.3 pg 27.0-3 3.0 low Not Available [facility] [address], [place], [address], 04/06/2023 11:22:35 04/05/20 23 04/06/2023 CBC (INCL UDES DIFF/ PLT) MCHC 27.9 g/dL 32.0-3 6.0 low Not Available [facility] [address], [place], [address], 04/06/2023 11:22:35 04/05/20 23 04/06/2023 CBC (INCL UDES DIFF/ PLT) RDW 20.1 % 11.0-1 5.0 high Not Available [facility] [address], [place], [address], 04/06/2023 11:22:35 04/05/20 23 04/06/2023 CBC (INCL UDES DIFF/ PLT) platelet count 574 thous and/u L 140-40 0 high Not Available [facility] [address], [place], [address], 04/06/2023 11:22:35 04/05/20 23 04/06/2023 CBC (INCL UDES DIFF/ PLT) MPV 10.8 fL 7.5-12 .5 normal Not Available [facility] [address], [place], [address], 04/06/2023 11:22:35 04/05/20 23 04/06/2023 CBC (INCL UDES DIFF/ PLT) absolute neutrophils 9760 cells /uL 1500-7 800 high Not Available [facility] [address], [place], [address], 04/06/2023 11:22:35 04/05/20 23 04/06/2023 CBC (INCL UDES DIFF/ PLT) absolute lymphocytes 1342 cells /uL 850-39 00 normal Not Available [facility] [address], [place], [address], 04/06/2023 11:22:35 04/05/20 23 04/06/2023 CBC (INCL UDES DIFF/ PLT) absolute monocytes 927 cells /uL 200-95 0 normal Not Available [facility] [address], [place], [address], 04/06/2023 11:22:35 04/05/20 23 04/06/2023 CBC (INCL UDES DIFF/ PLT) absolute eosinophils 85 cells /uL 15-500 normal Not Available [facility] [address], [place], [address], 04/06/2023 11:22:35 04/05/20 23 04/06/2023 CBC (INCL UDES DIFF/ PLT) absolute basophils 85 cells /uL 0-200 normal Not Available [facility] [address], [place], [address], 04/06/2023 11:22:35 04/05/20 23 04/06/2023 CBC (INCL UDES DIFF/ PLT) neutrophils 80 % normal Not Available [facility] [address], [place], [address], 04/06/2023 11:22:35 04/05/20 23 04/06/2023 CBC (INCL UDES DIFF/ PLT) lymphocytes 11.0 % normal Not Available [facility] [address], [place], [address], 04/06/2023 11:22:35 04/05/20 23 04/06/2023 CBC (INCL UDES DIFF/ PLT) monocytes 7.6 % normal Not Available [facility] [address], [place], [address], 04/06/2023 11:22:35 04/05/20 23 04/06/2023 CBC (INCL UDES DIFF/ PLT) eosinophils 0.7 % normal Not Available [facility] [address], [place], [address], 04/06/2023 11:22:35 04/05/20 23 04/06/2023 CBC (INCL UDES DIFF/ PLT) basophils 0.7 % normal Not Available [facility] [address], [place], [address], 04/06/2023 11:22:35 06/03/20 23 06/03/2023 CBC WBC 11.05 K/uL 4.00-1 1.00 high Not Available [facility] [address] [place] [address], [address], 06/03/2023 12:36:39 06/03/20 23 06/03/2023 CBC RBC 4.86 M/uL 3.90-5 .69 Not Available [facility] [address] [place] [address], [address], 06/03/2023 12:36:39 06/03/20 23 06/03/2023 CBC HGB 13.2 g/dL 12.4-1 7.3 Not Available [facility] [address] [place] [address], [address], 06/03/2023 12:36:39 11/27/06/03/2023 CBC HCT 42.9 % 37.0-5 1.0 Not Available [facility] [address] [place], [address], 06/03/2023 12:36:39 06/03/2006/03/2023 CBC plt 358 K/uL 140-43 0 Not Available [facility] [address] [place] [address], [address], 06/03/2023 12:36:39 06/03/2006/03/2023 CBC MCV 88.3 fL 78.0-9 7.0 Not Available [facility] [address] [place] [address], [address], 06/03/2023 12:36:39 06/03/20 23 06/03/2023 CBC MCH 27.2 pg 25.0-3 3.0 Not Available [facility] [address] [place] [address], [address], 06/03/2023 12:36:39 06/03/20 23 06/03/2023 CBC MCHC 30.8 g/dL 32.0-3 6.0 low Not Available [facility] [address] [place] [address], [address], 06/03/2023 12:36:39 06/03/20 23 06/03/2023 CBC RDW 23.8 % 11.0-1 5.0 high Not Available [facility] [address] [place] [address], [address], 06/03/2023 12:36:39 06/03/20 23 06/03/2023 CBC MPV 9.4 fL 8.4-12 .8 Not Available [facility] [address] [place] [address], [address], 06/03/2023 12:36:39 06/03/2006/03/2023 NT-KS OBNP nt-probnp 490 pg/mL 0-125 high Not Available [facility] [address] [place], [address], 06/03/2023 13:22:43 06/05/20 23 06/05/2023 CBC AND DIFFE RENTI AL WBC 11.15 K/uL 4.00-1 1.00 high Not Available [facility] [address] [place], [address], 06/05/2023 10:28:57 06/05/20 23 06/05/2023 CBC AND DIFFE RENTI AL RBC 4.95 M/uL 3.90-5 .69 Not Available [facility] [address] [place] [address], [address], 06/05/2023 10:28:57 06/05/20 23 06/05/2023 CBC AND DIFFE RENTI AL HGB 13.7 g/dL 12.4-1 7.3 Not Available [facility] [address] [place] [address], [address], 06/05/2023 10:28:57 06/05/20 23 06/05/2023 CBC AND DIFFE RENTI AL HCT 43.3 % 37.0-5 1.0 Not Available [facility] [address] [place] [address], [address], 06/05/2023 10:28:57 06/05/20 23 06/05/2023 CBC AND DIFFE RENTI AL plt 325 K/uL 140-43 0 Not Available [facility] [address] [place] [address], [address], 06/05/2023 10:28:57 06/05/20 23 06/05/2023 CBC AND DIFFE RENTI AL MCV 87.5 fL 78.0-9 7.0 Not Available [facility] [address] [place] [address], [address], 06/05/2023 10:28:57 06/05/20 23 06/05/2023 CBC AND DIFFE RENTI AL MCH 27.7 pg 25.0-3 3.0 Not Available [facility] [address] [place], [address], 06/05/2023 10:28:57 06/05/20 23 06/05/2023 CBC AND DIFFE RENTI AL MCHC 31.6 g/dL 32.0-3 6.0 low Not Available [facility] [address] [place], [address], 06/05/2023 10:28:57 06/05/20 23 06/05/2023 CBC AND DIFFE RENTI AL RDW 22.9 % 11.0-1 5.0 high Not Available [facility] [address] [place], [address], 06/05/2023 10:28:57 06/05/20 23 06/05/2023 CBC AND DIFFE RENTI AL MPV 8.6 fL 8.4-12 .8 Not Available [facility] [address] [place], [address], 06/05/2023 10:28:57 06/05/20 23 06/05/2023 CBC AND DIFFE RENTI AL diff method Auto Not Available [facility] [address] [place], [address], 06/05/2023 10:28:57 06/05/20 23 06/05/2023 CBC AND DIFFE RENTI AL neuts 75.7 % 43.0-7 5.0 high Not Available [facility] [address] [place], [address], 06/05/2023 10:28:57 06/05/20 23 06/05/2023 CBC AND DIFFE RENTI AL lymphs 11.9 % 18.2-4 7.4 low Not Available [facility] [address] [place], [address], 06/05/2023 10:28:57 06/05/20 23 06/05/2023 CBC AND DIFFE RENTI AL monos 9.0 % 4.00-1 1.00 Not Available [facility] [address] [place], [address], 06/05/2023 10:28:57 06/05/20 23 06/05/2023 CBC AND DIFFE RENTI AL eos 1.5 % 0.0-8. 0 Not Available [facility] ([facility]) [address] [place], [address], 06/05/2023 10:28:57 06/05/20 23 06/05/2023 CBC AND DIFFE RENTI AL basos 0.8 % 0.0-2. 0 Not Available [facility] ([facility]) [address] [place], [address], 06/05/2023 10:28:57 06/05/20 23 06/05/2023 CBC AND DIFFE RENTI AL granulocytes , immature (%) 1.1 % 0.0-0. 9 high Not Available [facility] ([facility]) [address] [place] [address], [address], 06/05/2023 10:28:57 06/05/20 23 06/05/2023 CBC AND DIFFE RENTI AL absolute neuts 8.44 K/uL 1.80-7 .70 high Not Available [facility]) [address] [place], [address], 06/05/2023 10:28:57 06/05/20 23 06/05/2023 CBC AND DIFFE RENTI AL absolute lymphs 1.33 K/uL 1.00-3 .10 Not Available [facility] ([facility]) [address] [place], [address], 06/05/2023 10:28:57 06/05/20 23 06/05/2023 CBC AND DIFFE RENTI AL absolute monos 1.00 K/uL 0.20-0 .80 high Not Available [facility] ([facility]) [address] [place], [address], 06/05/2023 10:28:57 06/05/20 23 06/05/2023 CBC AND DIFFE RENTI AL absolute eos 0.17 K/uL 0.00-0 .80 Not Available [facility] ([facility]) [address] [place], [address], 06/05/2023 10:28:57 06/05/20 23 06/05/2023 CBC AND DIFFE RENTI AL absolute basos 0.09 K/uL 0.00-0 .09 Not Available [facility] ([facility] [address] [place], [address], 06/05/2023 10:28:57 06/05/20 23 06/05/2023 CBC AND DIFFE RENTI AL granulocytes , immature 0.12 K/uL 0.00-0 .05 high Not Available [facility] [address] [place], [address], 06/05/2023 10:28:57 06/05/20 23 06/05/2023 TROPO JOURDAN troponin-T, hs gen5 13 NG/L 0-14 Not Available [facility] [address] [place], [address], 06/05/2023 10:42:42 06/05/20 23 06/05/2023 PT-IN R PT 22.8 sec 10.2-1 2.9 high Not Available [facility] [address] [place], [address], 06/05/2023 10:46:16 06/05/20 23 06/05/2023 PT-IN R INR 2.0 0.9-1. 1 high Thera peuti c range for oral Vitam in K antag onist s: 2.0-3 .5 Not Available [facility] [address] [place], [address], 06/05/2023 10:46:16 06/05/20 23 06/05/2023 BASIC METAB OLIC PANEL sodium 134 mmol/ L 133-14 6 Not Available [facility] ([facility] [address] [place], [address], 06/05/2023 11:02:34 06/05/20 23 06/05/2023 BASIC METAB OLIC PANEL chloride 83 mmol/ L 96-108 low Not Available [facility] ([facility]) [address] [place], [address], 06/05/2023 11:02:34 06/05/20 23 06/05/2023 BASIC METAB OLIC PANEL potassium 4.2 mmol/ L 3.3-5. 1 Not Available [facility] ([facility] [address] [place], [address], 06/05/2023 11:02:34 06/05/20 23 06/05/2023 BASIC METAB OLIC PANEL CO2 40 mmol/ L 21-35 high Not Available [facility] ([facility]) [address] [place], [address], 06/05/2023 11:02:34 06/05/20 23 06/05/2023 BASIC METAB OLIC PANEL BUN 17 mg/dL 6-19 Not Available [facility] ([facility]) [address] [place], [address], 06/05/2023 11:02:34 06/05/20 23 06/05/2023 BASIC METAB OLIC PANEL creatinine 1.10 mg/dL 0.5-1. 5 Not Available [facility] ([facility] [address] [place], [address], 06/05/2023 11:02:34 06/05/20 23 06/05/2023 BASIC METAB OLIC PANEL glucose 118 mg/dL 70-99 high Not Available [facility] ([facility]) [address] [place], [address], 06/05/2023 11:02:34 06/05/20 23 06/05/2023 BASIC METAB OLIC PANEL calcium 9.2 mg/dL 8.4-10 .3 Not Available [facility] ([facility] [address] [place], [address], 06/05/2023 11:02:34 06/05/20 23 06/05/2023 BASIC METAB OLIC PANEL eGFR 77 mL/mi n/1.7 3m2 >59 Estim ated glome rular filtr ation rate calcu lated using the CKD-E PI refit equat ion. Not Available [facility] ([facility]) [address] [place], [address], 06/05/2023 11:02:34 06/05/20 23 06/05/2023 BASIC METAB OLIC PANEL anion gap 15 mmol/ L 10-20 Not Available [facility] ([facility] [address] [place], [address], 06/05/2023 11:02:34 06/05/20 23 06/05/2023 LIPAS E lipase 26 U/L 16-63 Not Available [facility] [address] [place], [address], 06/05/2023 11:02:35 06/05/20 23 06/05/2023 LFTS (HEPA TIC PANEL ) alkaline phosphatase 117 U/L 39-117 Not Available [facility] [address] [place], [address], 06/05/2023 11:02:37 06/05/20 23 06/05/2023 LFTS (HEPA TIC PANEL ) total bilirubin 0.5 mg/dL 0.0-1. 2 Not Available [facility] (Outpatient) [address] [place], [id number], 06/05/2023 11:02:37 06/05/20 23 06/05/2023 LFTS (HEPA TIC PANEL ) direct bilirubin <0.2 mg/dL 0-0.3 Not Available [facility] (Outpatient) [address] [place], [address], 06/05/2023 11:02:37 06/05/20 23 06/05/2023 LFTS (HEPA TIC PANEL ) bilirubin (indirect) NOT CALCUL ATED mg/dL 0-1.5 Not Available [facility] (Outpatient) [address] [place], [address], 06/05/2023 11:02:37 06/05/20 23 06/05/2023 LFTS (HEPA TIC PANEL ) AST 73 U/L 0-37 high Not Available [facility] (Outpatient) [address] [place], [address], 06/05/2023 11:02:37 06/05/20 23 06/05/2023 LFTS (HEPA TIC PANEL ) ALT 48 U/L 0-40 high Not Available [facility] (Outpatient) [address] [place], [address], 06/05/2023 11:02:37 06/05/20 23 06/05/2023 LFTS (HEPA TIC PANEL ) total protein 6.8 g/dL 6.5-8. 0 Not Available [facility] (Outpatient) [address] [place], [address], 06/05/2023 11:02:37 06/05/20 23 06/05/2023 LFTS (HEPA TIC PANEL ) albumin 4.0 g/dL 3.9-4. 8 Not Available [facility] (Outpatient) [address] [place], [id number], 06/05/2023 11:02:37 06/05/20 23 06/05/2023 LFTS (HEPA TIC PANEL ) globulin 2.8 g/dL 1-4.8 Not Available [facility] (Out[facility]) [address] [place], [address], 06/05/2023 11:02:37 06/05/20 23 06/05/2023 LFTS (HEPA TIC PANEL ) A/G ratio 1.43 ratio 1.00-4 .80 Not Available [facility] (Out[facility]) [address] [place], [id number], 06/05/2023 11:02:37 06/05/20 23 06/05/2023 MAGNE SIUM magnesium 1.7 mg/dL 1.6-2. 6 Not Available [facility] (Outpatient) [address] [place], [id number], 06/05/2023 11:02:38 06/05/20 23 06/05/2023 NT-KS OBNP nt-probnp 390 pg/mL 0-125 high Not Available [facility] (Outpatient) [address] [place], [address], 06/05/2023 11:02:39 06/05/20 23 06/05/2023 TROPO JOURDAN troponin-T, hs gen5 12 NG/L 0-14 Not Available [facility] (Outpatient) [address] [place], [address], 06/05/2023 12:06:11 07/09/19 24 07/09/2023 CBC AND DIFFE RENTI AL WBC 10.89 K/uL 4.00-1 1.00 Not Available [facility] [facility] [address] [place], [address], 07/09/2023 08:43:47 07/09/19 24 07/09/2023 CBC AND DIFFE RENTI AL RBC 4.90 M/uL 3.90-5 .69 Not Available [facility]) [address] [place] [address], [address], 07/09/2023 08:43:47 07/09/19 24 07/09/2023 CBC AND DIFFE RENTI AL HGB 14.0 g/dL 12.4-1 7.3 Not Available [facility] ([facility]) [address] [place], [address], 07/09/2023 08:43:47 07/09/19 24 07/09/2023 CBC AND DIFFE RENTI AL HCT 45.2 % 37.0-5 1.0 Not Available [facility] (Out[facility]) [address] [place] [address], [address], 07/09/2023 08:43:47 07/09/19 24 07/09/2023 CBC AND DIFFE RENTI AL plt 266 K/uL 140-43 0 Not Available [facility] (Out[facility]) [address] [place] [address], [id number], 07/09/2023 08:43:47 07/09/19 24 07/09/2023 CBC AND DIFFE RENTI AL MCV 92.2 fL 78.0-9 7.0 Not Available [facility]) [address] [place] [address], [id number], 07/09/2023 08:43:47 07/09/19 24 07/09/2023 CBC AND DIFFE RENTI AL MCH 28.6 pg 25.0-3 3.0 Not Available [facility] ([facility]) [address] [place] [address], [address], 07/09/2023 08:43:47 07/09/19 24 07/09/2023 CBC AND DIFFE RENTI AL MCHC 31.0 g/dL 32.0-3 6.0 low Not Available [facility]) [address] [place], [address], 07/09/2023 08:43:47 07/09/19 24 07/09/2023 CBC AND DIFFE RENTI AL RDW 17.0 % 11.0-1 5.0 high Not Available [facility]) [address] [place] [address], [address], 07/09/2023 08:43:47 07/09/19 24 07/09/2023 CBC AND DIFFE RENTI AL MPV 10.2 fL 8.4-12 .8 Not Available [facility]) [address] [place] [address], [address], 07/09/2023 08:43:47 07/09/19 24 07/09/2023 CBC AND DIFFE RENTI AL diff method AUTO Not Available [facility] ([facility]) [address] [place], [address], 07/09/2023 08:43:47 07/09/19 24 07/09/2023 CBC AND DIFFE RENTI AL neuts 58.7 % 43.0-7 5.0 Not Available [facility]) [address] [place] [address], [address], 07/09/2023 08:43:47 07/09/19 24 07/09/2023 CBC AND DIFFE RENTI AL lymphs 25.9 % 18.2-4 7.4 Not Available [facility] [address] [place], [address], 07/09/2023 08:43:47 07/09/19 24 07/09/2023 CBC AND DIFFE RENTI AL monos 9.0 % 4.00-1 1.00 Not Available [facility]) [address] [place] [address], [address], 07/09/2023 08:43:47 07/09/19 24 07/09/2023 CBC AND DIFFE RENTI AL eos 4.3 % 0.0-8. 0 Not Available [facility] ([facility]) [address] [place], [address], 07/09/2023 08:43:47 07/09/19 24 07/09/2023 CBC AND DIFFE RENTI AL basos 1.3 % 0.0-2. 0 Not Available [facility] ([facility]) [address] [place], [address], 07/09/2023 08:43:47 07/09/19 24 07/09/2023 CBC AND DIFFE RENTI AL granulocytes , immature (%) 0.8 % 0.0-0. 9 Not Available [facility] [address] [place], [address], 07/09/2023 08:43:47 07/09/19 24 07/09/2023 CBC AND DIFFE RENTI AL absolute neuts 6.39 K/uL 1.80-7 .70 Not Available [facility]) [address] [place] [address], [id number], 07/09/2023 08:43:47 07/09/19 24 07/09/2023 CBC AND DIFFE RENTI AL absolute lymphs 2.82 K/uL 1.00-3 .10 Not Available [facility] [address] [place], [address], 07/09/2023 08:43:47 07/09/19 24 07/09/2023 CBC AND DIFFE RENTI AL absolute monos 0.98 K/uL 0.20-0 .80 high Not Available [facility]) [address] [place] [address], [address], 07/09/2023 08:43:47 07/09/19 24 07/09/2023 CBC AND DIFFE RENTI AL absolute eos 0.47 K/uL 0.00-0 .80 Not Available [facility] ([facility]) [address] [place], [address], 07/09/2023 08:43:47 07/09/19 24 07/09/2023 CBC AND DIFFE RENTI AL absolute basos 0.14 K/uL 0.00-0 .09 high Not Available [facility] [address] [place], [address], 07/09/2023 08:43:47 07/09/19 24 07/09/2023 CBC AND DIFFE RENTI AL granulocytes , immature 0.09 K/uL 0.00-0 .05 high Not Available [facility] [address] [place], [address], 07/09/2023 08:43:47 07/09/19 24 07/09/2023 FOLAT E folic acid 6.5 NG/mL 4.2-19 .9 Not Available [facility] [address] [place], [address], 07/09/2023 09:49:02 07/09/19 24 07/09/2023 DELMA TIN ferritin 154 ug/L 30-400 Not Available [facility] [address] [place], [address], 07/09/2023 09:51:38 07/09/19 24 07/09/2023 IRON AND IRON CLAUDIA NG CAPAC ITY iron 62 ug/dL 45-160 Not Available [facility]) [address] [place] [address], [address], 07/09/2023 09:51:40 07/09/19 24 07/09/2023 IRON AND IRON CLAUDIA NG CAPAC ITY iron binding capacity 307 ug/dL 228-42 8 Not Available [facility] ([facility]) [address] [place], [address], 07/09/2023 09:51:40 07/09/19 24 07/09/2023 IRON AND IRON CLAUDIA NG CAPAC ITY transferrin saturat. 20 % 20-55 Not Available [facility] [address] [place], [address], 07/09/2023 09:51:40 07/06/20 24 07/06/2024 COMPR EHENS JAX METAB OLIC PANEL sodium 139 mmol/ L 133-14 6 Not Available [facility] [address] [place], [address], 07/06/2024 11:14:21 07/06/20 24 07/06/2024 COMPR EHENS JAX METAB OLIC PANEL potassium 4.9 mmol/ L 3.3-5. 1 Not Available [facility] [address] [place] [address], [id number], 07/06/2024 11:14:21 07/06/20 24 07/06/2024 COMPR EHENS JAX METAB OLIC PANEL chloride 100 mmol/ L 96-108 Not Available [facility]) [address] [place] [address], [address], 07/06/2024 11:14:21 07/06/20 24 07/06/2024 COMPR EHENS JAX METAB OLIC PANEL CO2 30 mmol/ L 21-35 Not Available [facility]) [address] [place] [address], [address], 07/06/2024 11:14:21 07/06/20 24 07/06/2024 COMPR EHENS JAX METAB OLIC PANEL BUN 17 mg/dL 6-19 Not Available [facility]) [address] [place] [address], [address], 07/06/2024 11:14:21 07/06/20 24 07/06/2024 COMPR EHENS JAX METAB OLIC PANEL creatinine 1.20 mg/dL 0.5-1. 5 Not Available [facility] [address] [place], [address], 07/06/2024 11:14:21 07/06/20 24 07/06/2024 COMPR EHENS JAX METAB OLIC PANEL glucose 100 mg/dL 70-99 high Not Available [facility]) [address] [place], [address], 07/06/2024 11:14:21 07/06/20 24 07/06/2024 COMPR EHENS JAX METAB OLIC PANEL albumin 4.4 g/dL 3.9-4. 8 Not Available [facility] ([facility]) [address] [place], [address], 07/06/2024 11:14:21 07/06/20 24 07/06/2024 COMPR EHENS JAX METAB OLIC PANEL total protein 7.2 g/dL 6.5-8. 0 Not Available [facility] [address] [place], [address], 07/06/2024 11:14:21 07/06/20 24 07/06/2024 COMPR EHENS JAX METAB OLIC PANEL calcium 9.6 mg/dL 8.4-10 .3 Not Available [facility] [address] [place], [address], 07/06/2024 11:14:21 07/06/20 24 07/06/2024 COMPR EHENS JAX METAB OLIC PANEL alkaline phosphatase 79 U/L 39-117 Not Available [facility] [address] [place], [address], 07/06/2024 11:14:21 07/06/20 24 07/06/2024 COMPR EHENS JAX METAB OLIC PANEL total bilirubin 0.3 mg/dL 0.0-1. 2 Not Available [facility]) [address] [place], [address], 07/06/2024 11:14:21 07/06/20 24 07/06/2024 COMPR EHENS JAX METAB OLIC PANEL AST 19 U/L 0-37 Not Available [facility] ([facility]) [address] [place], [address], 07/06/2024 11:14:21 07/06/20 24 07/06/2024 COMPR EHENS JAX METAB OLIC PANEL ALT 14 U/L 0-40 Not Available [facility]) [address] [place], [address], 07/06/2024 11:14:21 07/06/20 24 07/06/2024 COMPR EHENS JAX METAB OLIC PANEL globulin 2.8 g/dL 1-4.8 Not Available [facility] ([facility]) [address] [place], [address], 07/06/2024 11:14:21 07/06/20 24 07/06/2024 COMPR EHENS JAX METAB OLIC PANEL eGFR 69 mL/mi n/1.7 3m2 >59 Estim ated glome rular filtr ation rate calcu lated using the CKD-E PI refit equat ion. Not Available [facility] ([facility]) [address] [place], [address], 07/06/2024 11:14:21 07/06/20 24 07/06/2024 COMPR EHENS JAX METAB OLIC PANEL anion gap 14 mmol/ L 10-20 Not Available [facility] [address] [place], [address], 07/06/2024 11:14:21 07/06/20 24 07/06/2024 LIPID PANEL HDL 55 mg/dL Inter preta tion <40 mg/dL : Low HDL ej stero l (keaton r risk facto r for CHD) Great er than or equal to 60 mg/dL : High HDL ej stero l ( neg ative risk facto r for CHD) HDL - ej stero l is affec tracy by a peteye r of facto rs, e.g. charly antony, óscar orona, davido marquis, sex and age. Not Available [facility]) [address] [place], [address], 07/06/2024 11:38:25 07/06/20 24 07/06/2024 LIPID PANEL cholesterol 154 mg/dL 0-240 Not Available [facility] ([facility]) [address] [place], [address], 07/06/2024 11:38:25 07/06/20 24 07/06/2024 LIPID PANEL triglyceride s 60 mg/dL 30-160 Not Available [facility] ([facility]) [address] [place], [address], 07/06/2024 11:38:25 07/06/20 24 07/06/2024 LIPID PANEL LDL 87 mg/dL 50-129 LDL level s in terms of risk for coron milly heart disea se: <100 mg/dL : Optim al 100-1 29 mg/dL : Near or above optim al 130-1 59 mg/dL : Borde rline high 160-1 89 mg/dL : High >190 mg/dL : Very High Not Available [facility] ([facility]) [address] [place], [address], 07/06/2024 11:38:25 07/06/20 24 07/06/2024 LIPID PANEL cardiac risk ratio 2.8 3.4-5. 0 low Not Available [facility] (Out[facility]) [address] [place], [address], 07/06/2024 11:38:25 08/27/19 25 08/28/2024 CBC WBC 8.97 K/ L 4.23-9 .07 Not Available [address], [address], 08/28/2024 11:16:23 08/27/19 25 08/28/2024 CBC RBC 4.29 M/ L 4.63-6 .08 low Not Available [address], [address], 08/28/2024 11:16:23 08/27/19 25 08/28/2024 CBC HGB 11.5 g/dL 13.7-1 7.5 low Not Available [address], [address], 08/28/2024 11:16:23 08/27/19 25 08/28/2024 CBC HCT 38.7 % 40.1-5 1.0 low Not Available [address], [address], 08/28/2024 11:16:23 08/27/19 25 08/28/2024 CBC MCV 90.2 fL 79.0-9 2.2 Not Available [address], [address], 08/28/2024 11:16:23 08/27/19 25 08/28/2024 CBC MCH 26.8 pg 25.7-3 2.2 Not Available [address], [address], 08/28/2024 11:16:23 08/27/19 25 08/28/2024 CBC MCHC 29.7 g/dL 32.3-3 6.5 low Not Available [address], [address], 08/28/2024 11:16:23 08/27/19 25 08/28/2024 CBC plt 416 K/ L 163-33 7 high Not Available [address], [address], 08/28/2024 11:16:23 08/27/19 25 08/28/2024 CBC MPV 11.5 fL 9.4-12 .4 Not Available [address], [address], 08/28/2024 11:16:23 08/27/19 25 08/28/2024 CBC neut% 60.4 % 34.0-6 7.9 Not Available [address], [address], 08/28/2024 11:16:23 08/27/19 25 08/28/2024 CBC neut# 5.42 1.78-5 .38 high Not Available [address], [address], 08/28/2024 11:16:23 08/27/19 25 08/28/2024 CBC lymph % 20.1 % 21.8-5 3.1 low Not Available [address], [address], 08/28/2024 11:16:23 08/27/19 25 08/28/2024 CBC lymph # 1.80 K/ L 1.32-3 .57 Not Available [address], [address], 08/28/2024 11:16:23 08/27/19 25 08/28/2024 CBC mono% 13.2 % 5.3-12 .2 high Not Available [address], [address], 08/28/2024 11:16:23 08/27/19 25 08/28/2024 CBC mono# 1.18 0.30-0 .82 high Not Available [address], [address], 08/28/2024 11:16:23 08/27/19 25 08/28/2024 CBC eo% 1.3 % 0.8-7. 0 Not Available [address], [address], 08/28/2024 11:16:23 08/27/19 25 08/28/2024 CBC eo# 0.12 0.04-0 .54 Not Available [address], [address], 08/28/2024 11:16:23 08/27/19 25 08/28/2024 CBC baso% 1.7 % 0.2-1. 2 high Not Available [address], [address], 08/28/2024 11:16:23 08/27/19 25 08/28/2024 CBC baso# 0.15 0.00-0 .08 high Not Available [address], [address], 08/28/2024 11:16:23 08/27/19 25 08/28/2024 CBC RDW-CV 15.5 % 11.6-1 4.4 high Not Available [address], [address], 08/28/2024 11:16:23 08/27/19 25 08/28/2024 CBC Ig% 3.300 % 0.000- 1.500 high Ig % >0.5 Indic ates possi ble Left Shift Not Available [address], [address], 08/28/2024 11:16:23 08/27/19 25 08/28/2024 CBC Ig# 0.300 0.000- 0.093 high Not Available [address], [address], 08/28/2024 11:16:23 08/27/19 25 08/28/2024 CBC NRBC% 0.0 % 0.0-0. 2 Not Available [address], [address], 08/28/2024 11:16:23 08/27/19 25 08/28/2024 CBC NRBC# 0.000 0.000- 0.012 Not Available [address], [address], 08/28/2024 11:16:23 08/27/19 25 08/28/2024 COMP. METAB OLIC PANEL glucose 98 mg/dL 70-100 Not Available [address], [address], 08/28/2024 14:02:35 08/27/19 25 08/28/2024 COMP. METAB OLIC PANEL BUN 20 mg/dL 7-18 high Not Available [address], [address], 08/28/2024 14:02:35 08/27/19 25 08/28/2024 COMP. METAB OLIC PANEL creatinine 1.1 mg/dL 0.8-1. 3 Not Available [address], [address], 08/28/2024 14:02:35 08/27/19 25 08/28/2024 COMP. METAB OLIC PANEL B/C 18.2 ratio Not Available [address], [address], 08/28/2024 14:02:35 08/27/19 25 08/28/2024 COMP. METAB OLIC PANEL GFR >=60ML /MIN mL/mi n normal >=60m L/min - Remedios l or midly reduc ed <60mL /min- Decre ased kidne y funct ion <15mL /min - Kidne y failu re [facility] calcu lates estim ated Glome rular Filtr ation Rate (eGFR ) using the Chron ic Kidne y Disea se Epide miolo gy Colla borat ion (CKD- EPI) Equat ion (Abelino r et. al 2020) as recom nayana d by the Natio nal Kidne y Found ation . eGFR is based on age, serum creat inine , and sex. CKD-E PI does not calcu late eGFR by race, does not apply to child nii (age <18 years ), and shoul d not be used in pregn ollie. Not Available [address], [address], 08/28/2024 14:02:35 08/27/19 25 08/28/2024 COMP. METAB OLIC PANEL sodium 137 mmol/ L 136-14 5 Not Available [address], [address], 08/28/2024 14:02:35 08/27/19 25 08/28/2024 COMP. METAB OLIC PANEL potassium 5.6 mmol/ L 3.5-5. 1 high Not Available [address], [address], 08/28/2024 14:02:35 08/27/19 25 08/28/2024 COMP. METAB OLIC PANEL chloride 96 mmol/ L 96-107 Not Available [address], [address], 08/28/2024 14:02:35 08/27/19 25 08/28/2024 COMP. METAB OLIC PANEL anion gap 6.5 5.0-15 .0 Not Available [address], [address], 08/28/2024 14:02:35 08/27/19 25 08/28/2024 COMP. METAB OLIC PANEL CO2 35 mmol/ L 21-32 high Not Available [address], [address], 08/28/2024 14:02:35 08/27/19 25 08/28/2024 COMP. METAB OLIC PANEL calcium 9.7 mg/dL 8.5-10 .3 Not Available [address], [address], 08/28/2024 14:02:35 08/27/19 25 08/28/2024 COMP. METAB OLIC PANEL total protein 6.7 g/dL 6.4-8. 2 Not Available [address], [address], 08/28/2024 14:02:35 08/27/19 25 08/28/2024 COMP. METAB OLIC PANEL albumin 3.4 g/dL 3.4-5. 0 Not Available [address], [address], 08/28/2024 14:02:35 08/27/19 25 08/28/2024 COMP. METAB OLIC PANEL globulin 3.3 g/dL Not Available [address], [address], 08/28/2024 14:02:35 08/27/19 25 08/28/2024 COMP. METAB OLIC PANEL A/G 1.0 ratio 0.8-2. 0 Not Available [address], [address], 08/28/2024 14:02:35 08/27/19 25 08/28/2024 COMP. METAB OLIC PANEL total bilirubin 0.60 mg/dL 0.00-1 .00 Not Available [address], [address], 08/28/2024 14:02:35 08/27/19 25 08/28/2024 COMP. METAB OLIC PANEL AST 11 U/L 0-37 Not Available [address], [address], 08/28/2024 14:02:35 08/27/19 25 08/28/2024 COMP. METAB OLIC PANEL ALT 23 U/L 6-63 Not Available [address], [address], 08/28/2024 14:02:35 08/27/19 25 08/28/2024 COMP. METAB OLIC PANEL alk. phos. 77 U/L 50-136 Not Available [address], [address], 08/28/2024 14:02:35 12/10/19 25 12/09/2024 BASIC METAB OLIC PANEL sodium 140 mmol/ L 133-14 6 Not Available [facility] [address] [place], [address], 12/09/2024 15:35:43 12/10/19 25 12/09/2024 BASIC METAB OLIC PANEL chloride 100 mmol/ L 96-108 Not Available [facility] ([facility]) [address] [place], [address], 12/09/2024 15:35:43 12/10/19 25 12/09/2024 BASIC METAB OLIC PANEL potassium 4.7 mmol/ L 3.3-5. 1 Not Available [facility] ([facility]) [address] [place], [address], 12/09/2024 15:35:43 12/10/19 25 12/09/2024 BASIC METAB OLIC PANEL CO2 33 mmol/ L 21-35 Not Available [facility] ([facility]) [address] [place], [address], 12/09/2024 15:35:43 12/10/19 25 12/09/2024 BASIC METAB OLIC PANEL BUN 25 mg/dL 6-19 high Not Available [facility] ([facility]) [address] [place], [address], 12/09/2024 15:35:43 12/10/19 25 12/09/2024 BASIC METAB OLIC PANEL creatinine 1.20 mg/dL 0.5-1. 5 Not Available [facility] ([facility]) [address] [place], [address], 12/09/2024 15:35:43 12/10/19 25 12/09/2024 BASIC METAB OLIC PANEL glucose 105 mg/dL 70-99 high Not Available [facility] ([facility]) [address] [place], [address], 12/09/2024 15:35:43 12/10/19 25 12/09/2024 BASIC METAB OLIC PANEL calcium 9.5 mg/dL 8.4-10 .3 Not Available [facility] ([facility]) [address] [place], [address], 12/09/2024 15:35:43 12/10/19 25 12/09/2024 BASIC METAB OLIC PANEL eGFR 69 mL/mi n/1.7 3m2 >59 Estim ated glome rular filtr ation rate calcu lated using the CKD-E PI refit equat ion. Not Available [facility] ([facility]) [address] [place], [address], 12/09/2024 15:35:43 12/10/19 25 12/09/2024 BASIC METAB OLIC PANEL anion gap 12 mmol/ L 10-20 Not Available [facility] ([facility] [address] [place], [address], 12/09/2024 15:35:43 02/21/20 23 02/20/2023 XR, chest XR CHEST PORTAB LE COMPAR TJ: Novemb er 2021 FINDIN GS: Device s/Tube s/Line s: None. Lungs: No focal consol idatio n or pulmon milly edema. There is diffus e bronch ial wall thicke josué. Pleura : No pleura l effusi on or pneumo thorax . Heart/ Medias tinum: The size of the cardia c silhou ette is unchan ged. Bones/ Soft Tissue s: The bony thorax is grossl y intact . IMPRES ROQUE: No focal consol idatio n or pulmon milly edema. Diffus e bronch ial wall thicke josué. Electr onical ly Signed by: Dalia rodriguez on 023 11:30 PM Interp reted by: Dalia rodriguez MD Signed by: Dalia rodriguez MD 3 Final result MARLENE Delvalle [facility] [address] [place], [address], 02/26/2023 13:10:28 03/03/20 23 03/03/2023 CT abdom en/pe lvis with contr ast CT ABDOME N/PELV IS WITH CONTRA ST TECHNI QUE: Multid etecto r-row CT of the abdome n and pelvis was perfor med after admini strati on of intrav enous contra st using tailor ed dose modula tion techni ques. Images were recons tructe d in the axial, manzanares l, and sagitt al planes . COMPAR TJ: None. FINDIN GS: Lower Chest: No consol idatio n or pleura l effusi ons. Liver: No focal lesion s. Biliar y: Contra cted gallbl adder. No biliar y ductal dilata tion. Spleen : No spleno megaly or focal lesion s. Pancre as: No masses or ductal dilata tion. Adrena l Glands : No nodule s. Kidney s/Uret ers: Normal . No solid masses , stones , or hydron ephros is. Bowel: Normal append ix. Coloni c divert iculos is withou t divert iculit is. Normal small bowel. Hyperd ense materi al in the stomac h and colon, likely ingest ed materi al. Tiny hiatal hernia . Perito neum/R etrope ritone um: No masses , pneumo perito neum, or fluid. Lymph Nodes: No lympha denopa thy. Pelvic Organs /Bladd er: Mild circum ferent ial bladde r wall thicke josué likely second milly to chroni c outlet obstru ction from enlarg ed prosta te Vessel s: Aortic athero sclero sis. No aortic aneury sm. Bones/ Soft Tissue s: Degene rative change s of the spine. Orthop edic hardwa re in the anteri or pelvis and screw in the right hip extend ing into the sacrum withou t alex-h ardwar e lucenc y. IMPRES ROQUE: No acute abnorm ality in the abdome n or pelvis . ATTEST ATION: Andressa Pillai as teachi ng physic peng, have review ed the images for this case and if necess milly edited the report origin thaddeus rodriguez d by Issac Delgado . Electr onical ly Signed by: Andressa Nielson on 023 7:42 PM Interp reted by: Andressa Nielson MD Bhatia , Issac Billings MD Signed by: Andressa Nielson MD 3 Final result Lower abd pain x 4 days MARLENE HARDEN [facility] [address] [place], [address], 03/05/2023 19:48:22 03/19/20 23 03/15/2023 XR, abdom en, 1 view XR ABDOME N 1 VIEW COMPAR TJ: CT ABDOME N/PELV IS WITH CONTRA ST 2022-A ug-27 FINDIN GS: Tubes/ Lines: None Bowel: Nonobs tructi ve bowel gas patter n. Bones/ Soft Tissue s: Surgic al change s from chroni c fractu re fixati on utiliz ing mallea ble plate and screw constr uct across the pubis and a single screw throug h the right sacroi liac joint. Degene rative change s of the lower lumbar spine. IMPRES ROQUE: Nonobs tructi ve bowel gas patter n. Electr onical ly Signed by: Dr. Roxanna Eisenberg on 023 12:58 AM Interp reted by: Roxanna Eisenberg MD Signed by: Roxanna Eisenberg MD 3 Final result Patijaqueline nolen was seen in the ER for anemia . R/o retain ed capsul e MARLENE HARDEN [facility] [address] [facility], [place], [address], 03/24/2023 10:54:12 05/08/20 23 05/01/2023 US, duple x, renal arter y No observ ation record ed. [facility] [address], [place], [address], 05/09/2023 16:58:49 06/05/20 23 06/05/2023 XR, chest XR CHEST PORTAB LE Referr ing clinic peng's provid ed indica tion for this examin ation in Epic: Pain COMPAR TJ: CT CHEST WITHOU T CONTRA ST 2022-A pr-27 FINDIN GS: Device s/Tube s/Line s: None. Lungs: No focal consol idatio n or pulmon milly edema. Pleura : No pleura l effusi on or pneumo thorax . Heart/ Medias tinum: Normal heart and medias tinum. Bones/ Soft Tissue s: No signif icant abnorm ality. Chroni c right- sided rib deform ities. IMPRES ROQUE: No acute radiog raphic abnorm ality. Electr onical ly Signed by: Marcia Houser on 2022 12:48 PM Interp reted by: Marcia Houser MD Signed by: Marcia Houser MD Final result Pain MARLENE HARDEN [email or web address] [facility] [address] [facility], [place], [address], 06/05/2023 13:14:19 11/08/19 24 11/08/2023 LDCT, chest , for lung cance r scree josué CT CHEST LUNG CANCER SCREEN ING INITIA L Referr ing clinic peng's provid ed indica tion for this examin ation in [facility]: Lung Cancer Screen ing - CURREN T smoker (20+ pk-yrs , age 50-80) - ICD -10 F17.21 0; nicoti ne depend ence TECHNI QUE: Low dose multid etecto r CT of the chest was perfor med withou t intrav enous contra st using tailor ed dose modula tion techni ques. COMPAR TJ: 023 FINDIN GS: Device s/Tube s/Line s: None. Lungs: No new nodule s Unchan ged 6 mm nodule in the right middle lobe (4:279 ) Likely mucus pluggi ng in the right lower lobe (4:313 Mild diffus e bronch ial wall thicke josué and modera te centri lobula r emphys cat. Pleura : Normal . No pleura l effusi on or pneumo thorax . Medias tinum: Heavy manzanares ry artery calcif icatio ns. Lymph Nodes: No enlarg ed suprac lavicu lar, axilla ry, medias tinal, or hilar lymph nodes. Upper Abdome n: Absenc e of intrav enous contra st and low dose techni que limits sensit ivity for detect ing small lesion s, solid organ and vascul ar findin gs. No abnorm ality detect ed in the visual ized upper abdome n. Chest Wall: No chest wall mass. Bones: No suspic ious lytic or blasti c lesion s. IMPRES ROQUE: Lung-R ADS Catego ry: 2/S. Multip le pulmon milly nodule s. The catego ry-det ermini ng solid nodule has a very low likeli joiner of becomi ng a clinic ally active cancer , due to size and/or lack of growth . There are potent ially signif icant incide ntal findin g(s): - severe amount of manzanares ry calcif icatio ns - modera te emphys cat RECOMM ENDATI ONS: Contin ue annual Lung Cancer Screen ing Chest CT examin ation if patien t meets eligib ility criter ia. To order, please type CT CHEST SCREEN ING (CT.TH .CHEST SCRS) and select ANNUAL for patien t progra m status . Recomm endati on for potent ially signif icant incide ntal findin g: follow up as clinic ally indica tracy. Explan ation of the Lung-R ADS catego oscar can be found at: [email or web address] df Electr onical ly Signed by: Dr. Nemesio toth on 11/08/19 8:59 AM Interp reted by: Nemesio Morgan MD, ISH Signed by: Nemesio Morgan MD, ISH 11/08/23 Final result MARLENE S GREEN MARLENE S GREEN MARLENE S GREEN mmastroberti [facility] [address] [place] [address], [address], 12/17/2023 13:37:56 11/08/19 24 11/08/2023 CT, chest No observ ation record ed. [facility] [address], [address], 11/12/2023 13:54:32 08/12/19 25 08/10/2024 elect remigio crandall oggabbi No observ ation record ed. [email or web address] [facility] [address], [place], [address], 08/13/2024 08:06:29 09/03/19 25 07/19/2024 CT, chest No observ ation record ed. [email or web address] [facility] [address], [place], [place], , 11/09/2024 08:05:51 Result Notes Documentation Provider Name and Address Organization Details Recorded Time Xr, Abdomen, 1 View : XR ABDOMEN 1 VIEW COMPARISON: CT ABDOMEN/PELVIS WITH CONTRAST FINDINGS: Tubes/Lines: None Bowel: Nonobstructive bowel gas pattern. Bones/Soft Tissues: Surgical changes from chronic fracture fixation utilizing malleable plate and screw construct across the pubis and a single screw through the right sacroiliac joint. Degenerative changes of the lower lumbar spine. IMPRESSION: Nonobstructive bowel gas pattern. Interpreted by: Ally Eisenberg MD Signed by: Ally Eisenberg MD 03/19/23 Final result Patient was seen in the ER for anemia. R/o retained capsule MARLENE Harden NP [address] [place] [address], [phone], [facility] 03/24/2023 10:54:12 Xr, Chest : XR CHEST PORTABLE Referring clinician's provided indication for this examination in Epic: Pain COMPARISON: CT CHEST WITHOUT CONTRAST FINDINGS: Devices/Tubes/Lines: None. Lungs: No focal consolidation or pulmonary edema. Pleura: No pleural effusion or pneumothorax. Heart/Mediastinum: Normal heart and mediastinum. Bones/Soft Tissues: No significant abnormality. Chronic right-sided rib deformities. IMPRESSION: No acute radiographic abnormality. Interpreted by: Subhash Houser MD Signed by: Subhash Houser MD 06/05/23 Final result Pain MARLENE S GREEN VENKATA Aldridge [facility] 06/05/2023 13:14:19 Ldct, Chest, For Lung Cancer Screening : CT CHEST LUNG CANCER SCREENING INITIAL Referring clinician's provided indication for this examination in [facility]: Lung Cancer Screening - CURRENT smoker (20+ [...] IMPRESSION: Lung-RADS Category: 2/S. Multiple pulmonary nodules. The [...] the Lung-RADS categories can be found at: [email or web address] Interpreted by: Nemesio Young MD, ISH Signed by: Nemesio Young MD, ISH 11/08/23 Final result MARLENE HARDEN Donita cabrales, [facility] 12/17/2023 13:37:56 Problems Name Problem SNOMED Code Status Onset Date Resolution Date Notes Provider Name and Address Organization Details Recorded Time Perla l hyperten roque 65484298 Completed 09/28/2016 Olegario Guy MD [address] [place] [address], [id number] , [facility] 7 11:39:42 Tobacco user 962649136 [facility] 11:20:04 Hemarthr osis of hand 26295110 Completed 199909/28/2016 Olegario Guy MD [address] [place] [address], [phone] , [facility] 7 11:39:39 Pain of joint 74642284 Active 1999 Marlene Harden NP [address] [place] [address], [address] , [facility] 2 09:20:11 Benign esscornelio l hyperten roque 0437169 Active 2000 Marlene Harden NP [address] [place] [address], [address] , [facility] 2 09:20:11 Precordi al pain 56813648 Completed 200005/27/2013 Not Available [facility] 3 02:02:30 Panic disorder without agorapho patel 75686719 Active 2000 Marlene Harden NP [address] [place] [address], [address] , [facility] 2 09:20:11 Chronic obstruct jax pulmonar y disease 74934772 Active 2021 Marlene Harden NP [address] [place] [address], [address] , [facility] 2 10:01:01 Persiste nt atrial fibrilla tion 371242772 Active 2021 cardiove rted 05/29 to NSR Marlene Harden NP [address] [place] [address], [phone] , [facility] 3 12:51:06 Congesti ve heart failure 32466804 Active 2021 Marlene Harden NP [address] [place] [address], [address] , [facility] 2 12:22:15 Chronic respirat ory failure 09407365 Active 2021 Yvette Spears MD [address] [place] [address], [address] , [facility] 2 15:25:36 Coronary atherosc lerosis 393218619 Active 2022 cardiac cath showed occluded RCA well collater alized Marlene Harden NP [address] [place] [address], [address] , [facility] 3 12:53:58 Alcoholi sm 5862197 Active 2022 Marlene Harden NP [address] [place] [address], [address] , [facility] 3 15:28:03 Dependen ce on suppleme ntal oxygen 21200277212 7 Active 2023 Marlene Harden NP [address] [place] [address], [address] , [facility] 4 15:59:12 Intracra nial hemorrha ge 0819793 Active 2024 Right lentifor m nucleus hemorrha ge Per [facility] discharg e summary 08/03/24 Lilo Quinones RN null, [facility] 5 11:59:30 Left hemipare sis 884058218 Active 2024 Per [facility] discharg e summary 08/03/24 Lilo Quinones RN null, [facility] 5 08:47:28 Sinus bradycar waldemar 60382577 Active 2024 Per [facility] discharg e summary 08/03/24 Lilo Quinones RN null, [facility] 5 08:47:56 Dysphagi a 65761449 Active 2024 Per [facility] discharg e summary 08/03/24 Lilo Quinones RN null, [facility] 5 08:48:28 Achilles tendinit is 83807550 Active 2024 Per [facility] discharg e summary 08/03/24 VENKATA Ko, [facility] 5 08:49:10 Disorder of implante d cardiac defibril lator electrod e 212536486 Active 2024 Battery depletio n-Per [facility] discharg e summary 08/03/24 VENKATA Ko, [facility] 5 08:51:09 Problem Notes None recorded. Procedures Surgical History Date Name Laterality Status Provider Name and Address Organization Details Recorded Time 08/27/19 25 Smoking cessation counseling completed BERYL Avendano [facility] 08/27/2024 14:37:19 08/27/19 25 Post hospital/SNF follow-up/Trans itional Care completed Roz Quinn RN [facility] 09/25/2024 09:07:38 12/21/19 23 Smoking cessation counseling completed Vladimir Mcmillan MA [facility] 12/20/2022 08:47:47 12/21/19 23 Suture/staple Removal completed Marlene Harden NP [address] [place], [address], [facility] 12/20/2022 09:56:39 09/15/19 23 Smoking cessation counseling completed Vladimir Mcmillan MA [facility] 09/14/2022 10:51:32 08/14/19 23 Smoking cessation counseling completed Stephanie Escobar CMA [facility] 08/14/2022 09:16:08 06/12/20 22 Smoking cessation counseling completed Marlene Harden NP [address] [place], [address], [facility] 06/12/2022 11:28:57 06/07/20 22 Smoking cessation counseling completed Yvette Spears MD [address] [place], [address], [facility] 06/07/2022 15:24:40 06/07/20 22 Post hospital/SNF follow-up/Trans itional Care completed BERYL Avendano [facility] 06/07/2022 13:47:36 05/10/20 22 Smoking cessation counseling completed Marlene Harden NP [address] [place], [address], [facility] 05/10/2022 09:00:44 05/10/20 22 Post hospital/SNF follow-up/Trans itional Care completed Marlene Harden NP [address] [place], [address], [facility] 05/10/2022 09:11:11 03/13/20 22 Smoking cessation counseling completed Marlene Harden NP [address] [place], [address], [facility] 03/13/2022 12:23:55 03/06/20 22 Smoking cessation counseling completed Johana Clemons MA [facility] 03/06/2022 10:43:49 02/24/20 22 Smoking cessation counseling completed Marlene Harden NP [address] [place], [address], [facility] 02/23/2022 11:16:02 02/21/20 22 Smoking cessation counseling completed Latosha brown MA [facility] 02/20/2022 09:37:03 01/19/20 22 Smoking cessation counseling completed Marlene Harden NP [address] [place], [address], [facility] 01/18/2022 10:09:38 01/03/20 22 Smoking cessation counseling completed Marlene Harden NP [address] [place], [address], [facility] 01/02/2022 09:26:46 02/18/20 21 Smoking cessation counseling completed Suyapa Thomas MA [facility] 02/17/2021 11:16:12 02/18/20 21 Carbon Monoxide Testing completed Suyapa Thomas MA [facility] 02/17/2021 11:16:12 02/18/20 21 prevention-card iovascular risk reduction counseling completed Johana Clemons MA [facility] 02/17/2021 08:21:35 02/18/20 21 prevention-isacc al alcohol misuse screening completed Johana Clemons MA [facility] 02/17/2021 08:21:35 11/12/19 21 Smoking cessation counseling completed Olegario Guy MD [address] [place], [address], [facility] 11/11/2020 19:57:18 11/12/19 21 Carbon Monoxide Testing completed BERYL Castillo [facility] 11/11/2020 14:39:48 12/30/19 05145: Therapeutic Exercise completed Yousif Singh, PT [address] [place], [address], [facility] 12/30/2019 12:30:16 12/30/19 20 38042: Manual Therapy completed Yousif Singh, PT [address] [place], [address], [facility] 12/30/2019 12:27:06 12/30/19 Treatment and Advice completed Yousif Singh, PT [address] [place], [address], [facility] 12/30/2019 12:31:36 12/25/19 37832: Therapeutic Exercise completed Yousif Singh, PT [address] [place], [address], [facility] 12/25/2019 12:53:38 12/25/19 Treatment and Advice completed Yousif Singh, PT [address] [place], [address], [facility] 12/25/2019 12:34:16 12/18/19 14986: Therapeutic Exercise completed Yousif Singh, PT [address] [place], [address], [facility] 12/18/2019 12:53:54 12/18/19 Treatment and Advice completed Yousif Singh, PT [address] [place], [address], [facility] 12/18/2019 12:51:57 12/14/19 48971: Therapeutic Exercise cancelled Yousif Singh, PT [address] [place], [address], [facility] 12/14/2019 12:36:19 12/14/19 20 Treatment and Advice cancelled Yousif Singh, PT [address] [place], [address], [facility] 12/14/2019 12:36:19 12/11/19 20 36419: Therapeutic Exercise completed Yousif Singh, PT [address] [place], [address], [facility] 12/11/2019 12:59:46 12/11/19 20 Treatment and Advice completed Yousif Singh, PT [address] [place], [address], [facility] 12/11/2019 12:59:05 12/04/19 20 Smoking Cessation Counselling completed Yousif Singh, PT [address] [place], [address], [facility] 12/04/2019 12:58:13 12/04/19 20 Physical Activity Counselling completed Yousif Singh, PT [address] [place], [address], [facility] 12/04/2019 11:52:34 12/04/19 20 59580: PT Eval Low Complexity completed Yousif Singh, PT [address] [place], [address], [facility] 12/04/2019 11:52:34 12/04/19 20 Treatment and Advice completed Yousif Singh, PT [address] [place], [address], [facility] 12/04/2019 12:58:06 11/24/19 20 Smoking cessation counseling completed Marlene Harden NP [address] [place], [address], [facility] 11/24/2019 09:16:51 11/24/19 20 Carbon Monoxide Testing completed Marlene Harden NP [address] [place], [address], [facility] 11/24/2019 09:16:51 11/16/19 20 Smoking cessation counseling completed Flaca Bateman [facility] 11/16/2019 09:21:37 11/16/19 20 Carbon Monoxide Testing completed Flaca Bateman [facility] 11/16/2019 09:21:37 12/12/19 19 Smoking cessation counseling completed Vladimir Mcmillan MA [facility] 12/11/2018 16:17:19 07/16/19 17 Smoking cessation counseling completed Leonarda Bucio MA [facility] 07/16/2016 08:12:10 07/16/19 17 Carbon Monoxide Testing completed Leonarda Bucio MA [facility] 07/16/2016 08:17:04 Imaging Results None recorded. Procedure Notes None recorded. Medical Equipment None Reported. Allergies Allergen ID Allergen Name Allergen Category Reaction Reaction Severity Criticality Documentation Date Start Date Code Code System Note Provider Name and Address Organization Details Recorded Time 195092 Product containin g penicilli n (product) medicatio n other Not available Not available 02/11/2015 33590 8001 [facility]ED [facility] 11:47[facility]14 284678 prednison e medicatio n chest pain Not available Not available 09/28/2016 8640 RxNorm bad react ion - marion hernandez and has had no react ion, took test no react ion [facility] 09:18:03 Medications Name Sig Start Date Stop Date Status Note LastModified by Organization Details LastModified Time Prescript ion - Change 06/07 completed Not Available Not Available Not Available Prescript ion - Prior Authoriza tion Request 06/07 completed [facility] - Trelegy Ellipta Not Available Not Available Not Available amoxicill in 500 mg capsule TAKE 1 CAPSULE BY MOUTH EVERY 8 HOURS UNTIL GONE completed Not Available Not Available Not Available furosemid e 40 mg tablet TAKE 1 TABLET BY MOUTH EVERY DAY active Not Available Not Available No t Available atorvasta tin 40 mg tablet TAKE 1 TABLET BY MOUTH EVERY DAY active Not Available Not Available No t Available bupropion HCl SR 150 mg tablet,12 hr sustained -release TAKE 1 TABLET BY MOUTH EVERY DAY FOR 3 DAYS THEN INCREASE TO 1 TABLET TWICE A DAY active Not Available Not Available No t Available prednison e 10 mg tablet PLEASE SEE ATTACHED FOR DETAILED DIRECTIO NS 06/07 completed Done with course PP Not Available Not Available Not Available doxycycli ne hyclate 100 mg capsule TAKE 1 CAPSULE BY MOUTH TWICE A DAY FOR 7 DAYS 01/18 completed Not Available Not Available Not Available ipratropi um 0.5 mg-albute rol 3 mg (2.5 mg base)/3 mL nebulizat ion soln INHALE 3 ML BY NEBULIZA TION 4 TIMES A DAY NEEDED 2023 active Not Available Not Available Not Avai lable azithromy sherri 250 mg tablet 02/17 completed Not Available Not Available Not Available metoprolo l tartrate 100 mg tablet Take 1 tablet twice a day by oral route. 06/07 completed 05/30/22 : DECREASE D TO ONLY 50 MG twice daily, per Mark ferguson Not Available Not Available Not Available amiodaron e 200 mg tablet TAKE 1 TABLET BY MOUTH EVERY DAY active Not Available Not Available No t Available metoprolo l succinate ER 50 mg tablet,ex tended release 24 hr On HOLD active On hold due to bradycar waldemar, no date or paramete rs given when to resume- Per [facility] discharg e summary 08/03/24, not verified with the patient - taking per pt TR/RMA Not Available Not Available Not Available hydrocodo ne 5 mg-acetam inophen 325 mg tablet TAKE 1 TABLET BY MOUTH EVERY 4 TO 6 HOURS NEEDED 05/21 completed Not Available Not Available Not Available ondansetr on HCl 8 mg tablet TAKE 1 TABLET BY MOUTH EVERY 8 HOURS NEEDED FOR 3 DAYS 04/23 completed Not Available Not Available Not Available minocycli ne 100 mg capsule TAKE 1 TABLET BY MOUTH TWICE A DAY FOR 10 DAYS active Not Available Not Available No t Available Nicoderm CQ 21 mg/24 hr daily transderm al patch Apply 1 patch every day by transder mal route. active Per [facility] discharg e summary 08/03/24, not verifed with the patient Not Available Not Available Not Available ondansetr on HCl 4 mg tablet Take 1 tablet every 6 hours by oral route as needed. active Not Available Not Available No t Available prednison e 20 mg tablet TAKE 2 TABLETS BY MOUTH EVERY DAY FOR 5 DAYS active Not Available Not Available No t Available prednison e 5 mg tablet TAKE 2 TABLETS (10 MG TOTAL) BY MOUTH DAILY FOR 3 DAYS, THEN 1 TABLET (5 MG TOTAL) DAILY FOR 3 DAYS. active Not Available Not Available No t Available thiamine HCl (vitamin B1) 100 mg tablet TAKE 1 TABLET BY MOUTH DAILY FOR 5 DAYS. 08/26 completed not taking per pt TR/RMA Not Available Not Available Not Available amlodipin e 5 mg tablet TAKE 1 TABLET BY MOUTH EVERY DAY 05/08 completed Not Available Not Available Not Available aspirin 81 mg tablet,de layed release TAKE 1 TABLET BY MOUTH EVERY DAY active Not taking 08/27/24 PP Not Available Not Available Not Available Nicotrol 10 mg inhalatio n cartridge PLEASE SEE ATTACHED FOR DETAILED DIRECTIO NS active - has not taken in a while TR/RMA Not Available Not Available Not Available tramadol 50 mg tablet TAKE 1 TABLET BY MOUTH TWICE A DAY NEEDED 01/02 completed Not Available Not Available Not Available sildenafi l 100 mg tablet TAKE 1/2 TABLET BY MOUTH EVERY DAY DIRECTED 08/26 completed 02/27/23: not using08/08- not taking per pt TR/RMA Not Available Not Available Not Available oxycodone -acetamin ophen 5 mg-325 mg tablet TAKE 1 TABLET BY MOUTH EVERY 6 HOURS NEEDED FOR PAIN active Not Available Not Available No t Available chlordiaz epoxide 25 mg capsule TAKE 1 CAPSULE (25 MG TOTAL) BY MOUTH 3 (THREE) TIMES A DAY NEEDED (GUADALUPE GABRIEL). 06/12 completed Not Available Not Available Not Available baclofen 10 mg tablet PRN 06/07 completed Not taking 06/07/22 PP Not Available Not Available Not Available bisacodyl 10 mg rectal supposito ry UNWRAP AND INSERT 1 SUPPOSIT ORY EVERY DAY BY RECTAL ROUTE NEEDED. 07/16 completed Not Available Not Available Not Available pantopraz ole 40 mg tablet,de layed release Take 1 tablet every day by oral route as directed . 2022 completed 02/25/23: per Mark carey, to be taken daily before breakfas t//sw Not Available Not Available Not Available ferrous sulfate 325 mg (65 mg iron) tablet TAKE 2 TABLETS EVERY DAY completed Not Available Not Available Not Available lisinopri l 10 mg tablet TAKE 1 TABLET BY MOUTH EVERY DAY active States not taking 08/27/24 PP Not Available Not Available Not Available losartan 25 mg tablet Take 1 tablet every day by oral route. 06/07 completed Not taking 06/07/22 PP Not Available Not Available Not Available metoprolo l tartrate 50 mg tablet TAKE 1 TABLET BY MOUTH TWICE A DAY 06/11 completed 02/27/23: confirme d not taking-pr escribed by cardiolo gy- was lowered to 1 tab daily. Not Available Not Available Not Available lisinopri l 30 mg tablet TAKE 1 TABLET BY MOUTH EVERY DAY 06/07 completed Not taking 06/07/22 PP Not Available Not Available Not Available gabapenti n 300 mg capsule TAKE 1 CAPSULE BY MOUTH THREE TIMES DAILY active Not Available Not Available No t Available aspirin 81 mg chewable tablet TAKE 1 TABLET BY MOUTH EVERY DAY 08/05 completed 02/27/23: still on hold02/25: on hold from Mrak carey until PCP says ok to resume, close monitori ng of hemoglob in//sw Not Available Not Available Not Available SB Low Dose ASA EC 81 mg tablet,de layed release Take 1 tablet every day by oral route. active Start taking on 08/05/24, until 08/26/24, then on 08/26 resume Xarelto 20mg- Per [facility] discharg e summary 08/03/24, not verified with the patient - Stop taking on 08/26 and start anticoag per pt TR/RMA Not Available Not Available Not Available morphine ER 15 mg tablet,ex tended release TAKE 1 TABLET BY MOUTH TWICE A DAY 01/02 completed Not Available Not Available Not Available levetirac etam 750 mg tablet TAKE 2 TABLETS (1,500 MG TOTAL) BY MOUTH 2 (TWO) TIMES A DAY. active Cannot clarify this dose 08/27/24 PP Not Available Not Available Not Available lisinopri l 5 mg tablet TAKE 1 TABLET BY MOUTH ONCE A DAY 01/26 completed 09/28/16 pt states taking 10 mg.sg Not Available Not Available Not Available mupirocin 2 % topical ointment APPLY 2 TIMES A DAY active Not Available Not Available No t Available digoxin 125 mcg (0.125 mg) tablet Take 1 tablet every other day by oral route. 05/29 completed Not Available Not Available Not Available albuterol sulfate HFA 90 mcg/actua tion aerosol inhaler INHALE 2 PUFFS INTO THE LUNGS EVERY 6 HOURS NEEDED FOR WHEEZE active Not Available Not Available No t Available ipratropi um bromide 0.02 % solution for inhalatio n active Not Available Not Available Not Available oxycodone 5 mg tablet TAKE ONE TABLET BY MOUTH THREE TIMES A DAY DO NOT DRIVE WHILE TAKING THIS MEDICATI ON 01/02 completed Not taking 02/17/21 AAS Not Available Not Available Not Available enoxapari n 40 mg/0.4 mL subcutane ous syringe 05/21 completed Not Available Not Available Not Available Nicotine Gum 2 mg Chew 1 piece of gum every 2 hours by oral route. 08/26 completed Per [facility] discharg e summary 08/03/24, not verifed with the patient- not taking, per pt TR/RMA Not Available Not Available Not Available Flovent HFA 220 mcg/actua tion aerosol inhaler INHALE 1 PUFF TWICE A DAY BY INHALATI ON ROUTE. 02/20 completed Not Available Not Available Not Available phenobarb ital 06/12 completed Not Available Not Available Not Available Complex B one daily active per pt Not Available Not Available No t Available peg 3350-elec trolytes 236 gram-22.7 4 gram-6.74 gram-5.86 gram solution USE DIRECTED FOR 1 DAY 12/11 completed Not Available Not Available Not Available Keppra XR 750 mg tablet,ex tended release Take 1 tablet twice a day by oral route. 2024 active SNF D/C Not Available Not Available Not Avai lable Nucynta 75 mg tablet Take 1 tablet every 4 hours by oral route. 02/17 completed Not Available Not Available Not Available Gavilax 17 gram/dose oral powder Take 17 g every day by oral route in the morning. 08/26 completed Not Available Not Available Not Available rivaroxab an 20 mg tablet Take 1 tablet every day by oral route in the evening. active Hold while taking ASA, then on 08/26/24 d/e ASA and reume Xarelto 20mg QD- Per [facility] discharg e summary 08/03/24, not verified with the patient - started back up on 5, per pt TR/RMA Not Available Not Available Not Available Combivent Respimat 20 mcg-100 mcg/actua tion solution for inhalatio n INHALE 1 PUFF BY MOUTH 4 TIMES A DAY 10/26 completed stopped by pulmonar y Not Available Not Available Not Available OxyContin 10 mg tablet,cr ush resistant ,extended release TAKE 1 TABLET EVERY 12 HOURS FOR PAIN. 01/02 completed Not Available Not Available Not Available Entresto 24 mg-26 mg tablet TAKE 1 TABLET BY MOUTH TWICE A DAY 2023 active On hold due to normoten roque, no date or paramete rs given when to resume- Per [facility] discharg e summary 08/03/24, not verified with the patient- taking per pt TR/RMA Not Available Not Available Not Available oxygen DIRECTED . 2L via nasal cannula active Per pt 2-3 liter , 24 hrs Not Available Not Available Not Available metoprolo l succinate ER 50 mg capsule sprinkle, ext. release 24 hr Take 1 capsule every day by oral route. 03/06 completed Not Available Not Available Not Available Trelegy Ellipta 200 mcg-62.5 mcg-25 mcg powder for inhalatio n TAKE 1 PUFF BY MOUTH EVERY DAY active Not Available Not Available No t Available Vitals Date Recorded Body height Body temperature Heart rate Oxygen saturation Oxygen saturation in Arterial blood by Pulse oximetry Systolic And Diastolic Provider Name and Address Organization Details Last Updated DateTime 5 171.45 cm 97.8 [degF] 51 /min 99 % 99 % 106/68 mm[Hg] Sil Plasencia [facility] 5 14:53:03 Date Recorded Body height Body mass index (BMI) Body weight Heart rate Oxygen saturation Oxygen saturation in Arterial blood by Pulse oximetry Systolic And Diastolic Provider Name and Address Organization Details Last Updated DateTime 4 171.45 cm 28.8 kg/m2 02181.9 8 g 60 /min 94 % 94 % 122/68 mm[Hg] Letty Mata [facility] 4 08:19:40 Date Recorded Body height Oxygen saturation Oxygen saturation in Arterial blood by Pulse oximetry Inhaled oxygen flow rate Heart rate Systolic And Diastolic Provider Name and Address Organization Details Last Updated DateTime 5 171.45 cm 97 % 97 % 2 L/min 62 /min 169/94 mm[Hg] Petra Palomares [facility] 5 13:44:30 Date Recorded Body height Body mass index (BMI) Body weight Oxygen saturation Oxygen saturation in Arterial blood by Pulse oximetry Inhaled oxygen flow rate Heart rate Systolic And Diastolic Provider Name and Address Organization Details Last Updated DateTime 4 171.45 cm 28.6 kg/m2 68511.2 9 g 97 % 97 % 2 L/min 61 /min 150/80 mm[Hg] Cassandra Kirk LPN [facility] 4 08:28:29 Date Recorded Systolic And Diastolic Provider Name and Address Organization Details Last Updated DateTime 02/26/2023 138/78 mm[Hg] Marlene Harden NP [address] [place] [address], [id number] 02/26/2023 08:38:12 Date Recorded Body height Body mass index (BMI) Body weight Body temperature Oxygen saturation Oxygen saturation in Arterial blood by Pulse oximetry Inhaled oxygen flow rate Heart rate Systolic And Diastolic Provider Name and Address Organization Details Last Updated DateTime 3 170.18 cm 29.5 kg/m2 89454.7 7 g 96.9 [degF] 96 % 96 % 2 L/min 62 /min 150/76 mm[Hg] Alycia Mcfarland [facility] 3 08:12:03 Date Recorded Body height Body mass index (BMI) Body weight Heart rate Systolic And Diastolic Provider Name and Address Organization Details Last Updated DateTime 06/11/2023 170.18 cm 29.5 kg/m2 85097.17 g 66 /min 130/60 mm[Hg] Misti Dickens [facility] 06/11/2023 15:22:27 Social History Question Answer Notes LastModified by Organizat ion Details LastModified Time Tobacco Smoking Status Current Every Day Smoker [facility] 08:25:54 Do You Wear A Helmet When Biking? Yes Information not available 02/17/2021 What Is Your Level Of Caffeine Consumption? Moderate 1 Cup A Day Information not available 02/20/2022 How Much Tobacco Do You Chew? None [email or web address] Information not available 09/28/2016 What Type Of Diet Are You Following? REGULAR Low Salt Information not available 09/05/2023 What Is The Highest Grade Or Level Of School You Have Completed Or The Highest Degree You Have Received? [id number] Information not available 09/05/2023 Have There Been Any Changes To Your Family Or Social Situation? No Information not available 02/20/2022 How Many Days In The Past Year Have You Had A Heavy Drinking Consumption (4+ Female, 5+ Male)? 0 Information not available 05/21/2016 Are There Any Guns Present In Your Home? No Information not available 02/20/2022 Do You Use Insect Repellent Routinely? No Information not available 02/20/2022 Live Alone Or With Others? With Others [email or web address] Information not available 02/15/2015 Patient Has Health Care Proxy Signed And In Chart Yes [email or web address] Information not available 11/10/2024 CCM Consent Discussion 06/11/2023 [email or web address] Information not available 06/18/2023 Marital Status [email or web address] Informatio n not available 02/15/2015 What Was The Date Of Your Most Recent Tobacco Screening? 08/27/2024 [email or web address] Information not available 08/27/2024 How Many Children Do You Have? 2 2 Stepchildren Information not available 02/20/2022 What Is Your Current Pack Years? [email or web address] Information not available 02/17/2021 What Is Your Relationship Status? Single In A Relationship Information not available 02/17/2021 Do You Use Your Seat Belt Or Car Seat Routinely? Yes Sometimes Information not available 02/17/2021 Do You Have Smoke And Carbon Monoxide Detectors In Your Home? Yes Information not available 02/17/2021 At What Age Did You Start Smoking Tobacco? 11 [email or web address] Information not available 03/13/2022 Are You Passively Exposed To Smoke? Yes Information not available 02/20/2022 How Much Tobacco Do You Smoke? 0.5 PPD Information not available 09/05/2023 General Stress Level High Information not available 05/21/2016 Do You Use Sunscreen Routinely? No Information not available 02/20/2022 How Many Years Have You Smoked Tobacco? 40 Information not available 11/16/2019 How Many Days In The Past Year Have You Consumed 5 Or More Drinks? 0 Stopped Drinking Information not available 09/05/2023 Sex: Male Functional Status Question Answer Note LastModified by Organizat ion Details LastModified Time Do you use any illicit or recreational drugs? No Information not available 09/05/2023 Do you or have you ever used any other forms of tobacco or nicotine? No Information not available 02/17/2021 What is your level of alcohol consumption? None Information not available 09/05/2023 Do you or have you ever used smokeless tobacco? Never used smokeless tobacco Information not available 11/16/2019 Are you currently employed? No disabled Information not available 09/05/2023 What is your occupation? Unemployed Information not available 09/05/2023 Do you or have you ever used e-cigarettes or vape? Never used electronic cigarettes Information not available 11/16/2019 What is your exercise level? Occasional Information not available 02/17/2021 Mental Status None recorded. Family History Relationship Description Onset Age of this Age Resolved Age Notes LastModified by Organization Details LastModified Time Father No current problems or disability [email or web address] Not available 09/28 11:43:48 Mother No current problems or disability [email or web address] Not available 09/28 11:43:48 Notes:Adopted. Medical History No medical history recorded. Immunizations Vaccine Type Date Status Note Provider Nam e and Address Organization Details Recorded Time Tdap 7 completed Not Available [facility] 07/25/2019 02:34:53 Influenza, split virus, quadrivalent, preservative 6 completed Not Available [facility] 04/30/2022 17:53:42 COVID-19 vaccine, vector-nr, rS-Ad26, PF, 0.5 mL 1 completed Cassandra Kirk LPN null, [facility] 10/03/2023 08:26:47 COVID-19, mRNA, LNP-S, PF, 100 mcg/0.5mL dose or 50 mcg/0.25mL dose 1 completed Cassandra Kirk BUSINESS BANK[employer] RELATIONSHIP MANAGER null, [facility] 10/03/2023 08:26:47 Influenza, split virus, quadrivalent, PF 2 completed Cassandra Kirk BUSINESS BANKING RELATIONSHIP MANAGER null, [facility] 10/03/2023 08:26:47 Past Encounters Encounter ID Performer Location Encounter Start Date Encounter Closed Date Diagnosis/Indication Diagnosis SNOMED-CT Code Diagnosis ICD10 Code Diagnosis Note [id number] Jatinder Garcia III, MD Radiology , [facility] [address] [facility] [place] [address] 06/24/2000 16:30:00 07/28/2008 02:02:29 [id number] Jatinder Garcia III, MD , [facility], OFFICE [address] [place] [place] [address] 06/24/2000 15:30:00 07/28/2008 02:02:29 [id number] Jatinder Garcia III, MD , [facility] OFFICE [address] [place] [address] 07/02/2000 09:00:00 07/28/2008 02:02:29 [id number] Jatinder Garcia III, MD , [facility] OFFICE [address] [place] [address] [place] [address] 07/25/2000 11:00:00 07/28/2008 02:02:29 [id number] Jatinder Garcia III, MD , [facility], OFFICE [address] [place] [address] [place] [address] 07/30/2000 11:15:00 07/28/2008 02:02:29 [id number] Cj Sheehan MD , [facility], OFFICE [address] [place] [address] [place] [address] 01/20/2001 15:15:00 07/28/2008 02:02:29 [id number] Olegario Guy MD , [facility], [address] [place] [address] 02/11/2015 11:33:50 02/11/2015 12:33:10 Concussion with loss of consciousness [id number] ER Head CT negative. Non-focal, normal neurologic exam. doing neuro checks at home. No memory loss. Continue to monitor for any worsening symptoms. Indication s for UC/ER use reviewed. NSAIDs as needed. Headache 40777466 Patien t with continued ZARATE and photo/phon osensitivi ty. Hydrocodon e-Acetamin ophen has been helpful with his ZARATE. Advised to use the medication sparingly. Non-focal, normal neurologic exam. No skin laceration or induration noted. No clinical evidence of increased intracrani al pressure. Vomiting [id number] Patie nt with continued N/V. Short-term relief with Ondansetro n prn. New prescripti on given. Symptoms due to recent concussion . Explained symptoms possibly aggravated by his opioid pain medication use. No BM as well. Dulcolax suppositor y prescribed as need. Advised to contact the clinic if worsening symptoms. BRAT diet discussed. Follow up early next week. Essential hypertension 57159295 Elevated BP. Previously was on anti-hyper tensive medication s. Off for several years. Will re-evaluat e at this next appointmen t (next week). BP may be due to increased pain. If BP persistent ly elevated at his upcoming visit, will start back on Zestril (his previous medication ). [id number] Olegario Guy MD , [facility], [address] [place] [address] 02/15/2015 16:00:55 02/15/2015 16:44:22 Concussion with loss of consciousness [id number] Symptoms improving. ER Head CT negative. Non-focal, normal neurologic exam. doing neuro checks at home. No memory loss. Continue to monitor for any worsening symptoms. Indication s for UC/ER use reviewed. NSAIDs as needed. Discussed return to work date 02/21/2015. Headache 52024970 Patien t with improving ZARATE and photo/phon osensitivi ty. W/C form filled out. Hydrocodon e-Acetamin ophen has been helpful with his ZARATE. Advised to use the medication sparingly. Non-focal, normal neurologic exam. No skin laceration or induration noted. No clinical evidence of increased intracrani al pressure. Essential hypertension 97173000 Improved BP. Low salt diet. Monitor for any worsening symptoms. Nausea 126395327 N/V improved with Ondansetro n and Dulcolax prn. Constipati on is also better. Symptoms due to recent concussion . Explained symptoms possibly aggravated by his opioid pain medication use. Advised to contact the clinic if worsening symptoms. [id number] Cj Madsen MD , [facility], [address] [place] [address] 04/23/2016 09:18:45 04/23/2016 09:54:02 Fracture of multiple ribs 9564364 S22.41XA Fracture of pelvis 87024 009 M96.65 f/u with ortho and trauma surgeons- gave him enough oxycodne to last appt on Apr 30- check [place] PAT [id number] Olegario Guy MD , [facility], [address] [place] [address] 05/21/2016 14:48:04 05/21/2016 15:19:48 Fracture of pelvis 62499747 M96.65 Recent pelvic fracture on 04/13/2016 from a fall. Undergone surgery at [facility] for the pelvic fracture (plates and screws). Had follow up appointmen ts with Trauma Surgery and Orthopedic Surgery. Now able to get around with a walker. Using Oxycodone prn (managed by Orthopedic s) Fracture o f multiple ribs 9150360 S22.42XD Normal pulmonary exam without respirator y distress. No deformity noted. Benign ess ential hypertension 5976410 I10 Previously had several elevated BP readings. Previously tolerated Lisinopril . Will restart this medication at 5mg daily. Check BMP. Potential adverse effects of the medication reviewed. [id number] Olegario Guy MD , [facility], [address] [place] [address] 07/16/2016 08:00:41 07/16/2016 08:26:33 Cigarette smoker 49096134 F17.210 Currently smokes about 1/2 PPD. Behavioral modificati on and goal setting discussed. Not currently ready to quit. Tobacco user 186047103 Z 72.0 Fracture of pelvis 59141 009 M96.65 Recent pelvic fracture on 04/13/2016 from a fall. Undergone surgery at [facility] for the pelvic fracture (plates and screws). Had follow up appointmen ts with Trauma Surgery and Orthopedic Surgery. Now able to get around without any ambulatory device. Off Oxycodone now. Benign ess ential hypertension 7683381 I10 Previously had several elevated BP readings. Previously tolerated Lisinopril . This was restarted at his previous visit, but did not continue after the first month. Will prescribe a higher dose of Lisinopril 10mg daily. Advised to take the medication continuous ly. No intoleranc e issues. Potential adverse effects of the medication reviewed. [id number] Olegario Guy MD , [facility], [address] [place] [address] 09/28/2016 11:22:27 09/28/2016 12:01:39 Adult health examination 948990957 Z00.00 See Risk Assessment and Lifestyle Change Counseling section above. Influenza vaccine administer ed today. Tdap vaccine administer ed today. Counseling 175051263 Z71 .9 Benign ess ential hypertension 9198922 I10 BP improved on Lisinopril 10mg daily. Advised to take the medication continuous ly. No intoleranc e issues. Potential adverse effects of the medication reviewed. Screening for malignant neoplasm of colon 181896439 Z12.11 Active or passive immunization 909309110 Z23 [id number] Olegario Guy MD , [facility], [address] [place] [address] 12/11/2018 16:04:16 12/11/2018 16:30:36 Cigarette smoker 39714550 F17.210 Discussed/ enc smoking cessation - pt not ready to even consider Tobacco user 392859260 Z 72.0 Benign ess ential hypertension 3287512 I10 Pt has been off his meds for about 2 yrs - lost insurance. Refilled as below. Enc healthy diet/exerc ise habits. Will return in 1 month for BP check and get labs prior to visit. Impotence 145627446 N52. 9 Wants refills on sildenafil that he has used in the past without any adverse effects. Rx sent. [id number] Olegario Guy MD , [facility], [address] [place] [address] 11/16/2019 09:18:04 11/17/2019 10:33:50 Cigarette smoker 23020810 F17.210 did not discuss today - w/c visit Tobacco user 302994639 Z 72.0 Pain of le ft shoulder joint 9960235470 0765989 M25.512 W/C injury that started over a year ago. Never sought treatment for it. Exacerbate d over the past 1.5 weeks with increased pain with certain movements. Unable to do his job which is very physical. Has been out since November 05. Enc. cont. rest, ice/heat, gentle ROM, ibuprofen and will refer as below to sports med. Someone will contact him to schedule. Work note done and will be faxed to his employer. OOW until seen/evalu ated by sports med and given the okay to return. [id number] Harmeet Elliott MD Sports Medicine, [address] [address] 11/23/2019 11:05:21 11/24/2019 08:25:07 Pain in left arm 799037591 M79.922 Yousif is a 54-year-ol d male with left arm and shoulder pain that may be from a cervical radiculopa thy. I am however concerned with his descriptio n of exertional discomfort as well as his history of high blood pressure and smoking that he could possibly have a cardiac cause of his symptoms. I reviewed all of this with him today as well as discussing potential treatment. I have given him a referral to physical therapy to see if this helps resolve his symptoms. I also advised the make an urgent appointmen t with his primary care doctor to discuss it further workup of a cardiac cause of his symptoms is warranted. He will plan to follow up with me in 8 weeks for reevaluati on or sooner if he is having any worsening symptoms. Over 25 minutes was spent on patient care and greater than 50% of the time was spent in counseling . [id number] Olegario Guy MD , [facility], [address] [place] [address] 11/24/2019 08:55:54 11/25/2019 09:09:00 Cigarette smoker 97642458 F17.210 strongly enc smoking cessation - pt states not ready and deferred any smoking cessation aids Tobacco user 999449300 Z 72.0 Benign ess ential hypertension 9622549 I10 Currently on lisinopril 20 mg and last time checked his BP was still in the 150's systolic. Will increase dose to 30 mg/daily. Has BP cuff at home. Will start checking and discussed goal of <130/80. F/u in 2-3 weeks after dosage change if still not at goal. Will also have him return for repeat BMP in the next month. Pain of le ft shoulder joint 5995520128 9739684 M25.512 W/C injury that started over a year ago. Never sought treatment for it. Exacerbate d over the past 2 weeks with increased pain with certain movements. Unable to do his job which is very physical. Has been out since November 05. Enc. f/u with sports med as planned. Unclear if some of his pain could be cardiac. ETT ordered and pt to f/u if having trouble getting appt. Strongly enc smoking cessation and better BP control to decrease his risks for CAD. Atypical chest pain 1025 20806 R07.89 Pain that radiates to scapula and left axilla - can occur at rest but also with exertion - unclear if this pain is coming from his shoulder injury or if could have cardiac component - enc pt to get ETT in the near future - he should check with [facility] to see if qualifies for free care as he has no insurance right now and states doesn't qualify for [employer]. Emphasized the importance of getting this testing done with pt and also of smoking cessation and getting htn under better control. Enc. to work on getting some type of health insurance for the future [id number] Yousif Singh , PT Physical Therapy, [address] [address] 12/04/2019 12:31:06 12/07/2019 08:12:49 Pain of left shoulder joint 5972208085 2089458 M25.512 54 year old male with findings most consistent with chronic left sided nack and shoulder pain with movement co-ordinat ion impairment . Patient has significan t functional limitation in their activities of daily living and work capacity. Skilled physical therapy is needed to safely and progressiv vivek address impairment s and functional limitation s as outlined below. 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 Clinical Goals: 1. Demonstrat e symmetric pain free active, passive and resisted motions of the neck and upper extremitie s. 2. Demonstrat e sufficient muscular endurance to meet functional demands. Treatment Plan: Patient to return for 8 visits over 12 weeks. We expect significan t change in pain, impairment and function in this time frame. Treatment to Include: Therapeuti c exercise and manual therapy [id number] Yousif Singh , LISA Physical Therapy, [address] [address] 12/11/2019 12:31:51 12/11/2019 14:14:31 Pain of left shoulder joint 5168609816 4442478 M25.512 54 year old male with findings most consistent with chronic left sided nack and shoulder pain with movement co-ordinat ion impairment . Patient has significan t functional limitation in their activities of daily living and work capacity. Skilled physical therapy is needed to safely and progressiv vivek address impairment s and functional limitation s as outlined below. 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 Clinical Goals: 1. Demonstrat e symmetric pain free active, passive and resisted motions of the neck and upper extremitie s. 2. Demonstrat e sufficient muscular endurance to meet functional demands. Treatment Plan: Patient to return for 8 visits over 12 weeks. We expect significan t change in pain, impairment and function in this time frame. Treatment to Include: Therapeuti c exercise and manual therapy [id number] Yousif Singh , LISA Physical Therapy, [address] [address] 12/18/2019 12:33:36 12/18/2019 13:41:50 Pain of left shoulder joint 1706910253 [id number] M25.512 54 year old male with findings most consistent with chronic left sided nack and shoulder pain with movement co-ordinat ion impairment . Patient has significan t functional limitation in their activities of daily living and work capacity. Skilled physical therapy is needed to safely and progressiv vivek address impairment s and functional limitation s as outlined below. 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 Clinical Goals: 1. Demonstrat e symmetric pain free active, passive and resisted motions of the neck and upper extremitie s. 2. Demonstrat e sufficient muscular endurance to meet functional demands. Treatment Plan: Patient to return for 8 visits over 12 weeks. We expect significan t change in pain, impairment and function in this time frame. Treatment to Include: Therapeuti c exercise and manual therapy [id number] Yousif Singh , PT Physical Therapy, [address] [address] 12/25/2019 12:33:04 12/25/2019 12:58:20 Pain of left shoulder joint [id number] 7040915 M25.512 54 year old male with findings most consistent with chronic left sided nack and shoulder pain with movement co-ordinat ion impairment . Patient has significan t functional limitation in their activities of daily living and work capacity. Skilled physical therapy is needed to safely and progressiv vivek address impairment s and functional limitation s as outlined below. 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 Clinical Goals: 1. Demonstrat e symmetric pain free active, passive and resisted motions of the neck and upper extremitie s. 2. Demonstrat e sufficient muscular endurance to meet functional demands. Treatment Plan: Patient to return for 8 visits over 12 weeks. We expect significan t change in pain, impairment and function in this time frame. Treatment to Include: Therapeuti c exercise and manual therapy [id number] Yousif Singh , LISA Physical Therapy, [address] [address] 12/30/2019 12:23:34 12/30/2019 13:28:36 Pain of left shoulder joint 3696561654 [id number] M25.512 54 year old male with findings most consistent with chronic left sided nack and shoulder pain with movement co-ordinat ion impairment . Patient has significan t functional limitation in their activities of daily living and work capacity. Skilled physical therapy is needed to safely and progressiv vivek address impairment s and functional limitation s as outlined below. 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 Clinical Goals: 1. Demonstrat e symmetric pain free active, passive and resisted motions of the neck and upper extremitie s. 2. Demonstrat e sufficient muscular endurance to meet functional demands. Treatment Plan: Patient to return for 8 visits over 12 weeks. We expect significan t change in pain, impairment and function in this time frame. Treatment to Include: Therapeuti c exercise and manual therapy [id number] Olegario Guy MD , [facility], [address] [place] [address] 11/07/2020 15:10:52 11/08/2020 15:35:39 Cigarette smoker 79742649 F17.210 Encouraged smoking cessation using goal setting and behavioral modificati on. Tobacco user [id number] Z 72.0 Benign ess ential hypertension 2314785 I10 Currently on Lisinopril 30mg. Will schedule an in-person evaluation this week to check BP. Will need BMP. Spondylolisthesis 250239 003 M43.10 Last visit this provider was in 2016. Upper back pain followed by PSS. Received an epidural injection. Under the W/C care. Initial injury from falling from a tree in 2015. Attributes to constant wear and tear of the involved joints. His PSS provider prescribed Nucynta, but was cost prohibitiv e. States Tramadol was ineffectiv e. Currently taking Gabapentin at 300mg/300m g and 600mg. Will further adjust the Gabapentin dose and re-evaluat e during in-person visit. Advised to increase Gabapentin to 600mg/300m g/900mg. Dyspnea [id number] R06.00 Sporadic care due to loss of insurance. Had URI in 08/2019, then had a long course of dyspnea. Reports wheezy feelings. Denies CP. Current smoker. Previously referred for stress test, but was unable to pursue due to lack of insurance. Used friend's inhaler (Albuterol ) which was helpful. Will refill. Will need CXR and pulmonary exam for further evaluation . Indication s for UC/ER use reviewed. [id number] Olegario Guy MD , [facility], [address] [place] [address] 11/11/2020 14:31:14 11/14/2020 09:34:44 Cigarette smoker 06269403 F17.210 Encouraged smoking cessation using goal setting and behavioral modificati on. Tobacco user 897548176 Z 72.0 Dyspnea 428202258 R06.00 Sporadic care due to loss of insurance. Had URI in 08/2019, then had a long course of dyspnea. Reports wheezy feelings. Denies CP. Current smoker. Previously referred for stress test, but was unable to pursue due to lack of insurance. Used friend's inhaler (Albuterol ) which was helpful. Diffuse expiratory wheezing on exam, but not in distress. CXR today without infiltrate s. Borderline hyperinfla tracy lung flores. Suspect COPD with long history of smoking. Would like to treat with Prednisone , but previously had allergic reaction. Tolerated inhaled steroids. Discussed treatment with Flovent and Azithromyc in for presumptiv e COPD exacerbati on. O2 sat at 90%. Indication s for UC/ER use reviewed. Will follow up on Saturday to check his progress. Separate Albuterol Rx given. Benign ess ential hypertension 3831587 I10 Currently on Lisinopril 30mg. Borderline high BP. Continue to monitor. Check BMP. Spondylolisthesis 599389 003 M43.10 Last visit this provider was in 2017. Upper back pain followed by PSS. Received an epidural injection. Under the W/C care. Initial injury from falling from a tree in 2015. Attributes to constant wear and tear of the involved joints. His PSS provider prescribed Nucynta, but was cost prohibitiv e. States Tramadol was ineffectiv e. Currently taking Gabapentin at 300mg/300m g and 600mg. Will further adjust the Gabapentin dose and re-evaluat e during in-person visit. Advised to increase Gabapentin to 600mg/300m g/900mg. [id number] Olegario Guy MD , [facility], [address] [place] [address] 11/14/2020 14:33:25 11/16/2020 08:25:23 Dyspnea [id number] R06.00 Sporadic care due to loss of insurance. Had URI in 08/2019, then had a long course of dyspnea. Reports wheezy feelings. Denies CP. Current smoker. Diffuse expiratory wheezing on exam 3 days ago, but not in distress. CXR without infiltrate s. Borderline hyperinfla tracy lung flores. Suspect COPD with long history of smoking. Would like to treat with Prednisone , but previously had allergic reaction. Tolerated inhaled steroids. Discussed treatment with Flovent and Azithromyc in for presumptiv e COPD exacerbati on. O2 sat at 90% at the in-person visit. Today he reports slight improvemen t on Flovent, but still requiring Albuterol daily. Advised to increase Flovent 220mcg to 2 puffs bid (rinse mouth after each use). Indication s for UC/ER use reviewed. Will follow up in 3 months. Advised to contact the clinic if no noticeable improvemen t in 2 weeks. Medication s have been somewhat cost prohibitiv e. Benign ess ential hypertension 8345052 I10 Currently on Lisinopril 30mg. Borderline high BP. Continue to monitor. Check BMP. Spondylolisthesis 923719 003 M43.10 Last visit this provider was in 2017. Upper back pain followed by PSS. Received an epidural injection. Under the W/C care. Initial injury from falling from a tree in 2015. Attributes to constant wear and tear of the involved joints. His PSS provider prescribed Nucynta, but was cost prohibitiv e. States Tramadol was ineffectiv e. Currently taking Gabapentin at 300mg/300m g and 600mg. Will further adjust the Gabapentin dose and re-evaluat e during in-person visit. Advised to increase Gabapentin to 600mg/300m g/900mg. [id number] Olegario Guy MD , [facility], [address] [place] [address] 02/17/2021 11:13:55 02/17/2021 12:05:07 Adult health examination 183085709 Z00.00 Counseling 042890886 Z71 .9 including cardiovasc ular risk reduction counseling Depression screening 171 185410 Z13.31 depression screening tool administer ed, entered into emr, scored and discussed, time greater than 7.5 minutes. Pt scores high on screening, admits feeling down d/t health issues, being out of work. Revisit at next appt - considerin g wellbutrin which could help with moods as well as with smoking cessation Screening for alcohol abuse 957311457 Z13.39 no ETOH consumptio n Essential hypertension 69732819 I10 Not at goal- continue with lisinopril 30mg and start amlodipine 5mg, work on diet and exercise as discussed. F/U for BP check in 3-4 wks Cigarette smoker 1512447 7 F17.210 strongly enc smoking cessation - pt states not ready and deferred any smoking cessation aids Dyspnea 444962898 R06.00 start combivent QID and continue with ventolin PRN and flovent BID. Schedule PFT. Considered prednisone but pt has bad allergy. Pt aware that has COPD and that smoking is contributi ng to his sx. Had normal cxr in November. Hearing loss 64635354 H9 1.90 Notes hearing loss when there is any background noise - referred for audiology eval Chronic back pain 116935 002 M54.9 Upper back and neck - chronic. W/C related. Followed by physiatry. No real improvemen t and told not a surgical candidate. Cont. current meds and f/u with physiatry as planned [id number] Johnnie Chaparro MD , [facility], [address] [place] [address] 01/02/2022 08:59:11 01/02/2022 09:41:39 Tobacco user 753505395 Z72.0 Strongly enc smoking cessation - not ready but enc to start tapering/c utting back Dyspnea 399487127 R06.00 Continue combivent and flovent as prescribed . Pt can't take prednisone - bad reaction in past. Needs cxr and pumonary referral. Also PFT's which were ordered last February but never scheduled. SaO2 levels low and we discussed this. Needs to work on smoking cessation - deferred smoking cessation aids today but agreed to f/u with me next week. Will need walk test with SaO2 - may need home O2 if not improving. ? CT Scan. Will discuss with colleagues and order next week, especially if abnl CXR result. ? switching to Advair or Symbicort next visit, ? spiriva. Acute exac erbation of chronic obstructive pulmonary disease 535759278 J44.1 Can't take oral prednisone d/t side effects. Will treat with doxy d/t complaints of copious secretions every day. Cont. inhalers as prescribed and f/u next week with me. Essential hypertension 22951495 I10 Better on repeat - not taking amlodipine every day (fills sporadical ly). Enc take daily. Consider adding HCTZ next visit if not at goal. Return next week as planned [id number] Johnnie Chaparro MD , [facility], [address] [place] [address] 01/18/2022 09:49:15 01/19/2022 09:15:34 Influenza vaccination declined 550585235 Z28.21 Tobacco user 558877617 Z 72.0 Strongly enc smoking cessation - see below Benign ess ential hypertension 0354524 I10 Currently on lisinopril 30 mg and amlodipine 5 mg - bp improved, still not optimal but was SOB when took it. Will repeat next month when he returns for [place] Chronic ob structive pulmonary disease 26835048 J44.9 Worsening SOB x months. Can't work. Any activity causes dyspnea. PFT's and CT Scan pending but suspect worsening COPD. Had abnl cxr with CT Scan scheduled for tomorrow to r/o mass in lungs. Will f/u with results when available. Discussed that sx will not improve if he continues to smoke 1 ppd. Willing to try patches. Rx sent and instructed to apply in a.m., remove at HS and try to taper down on cigs. Deferred oral meds to help with this. Has PFT's scheduled for later this month. May need to see pulmonary. Enc cont. current inhalers for now. [id number] Johnnie Chaparro MD , [facility], [address] [place] [address] 02/20/2022 09:32:21 02/20/2022 14:39:29 Adult health examination 893899980 Z00.00 Counseling 227646533 Z71 .9 including cardivascu lar risk reduction counseling Depression screening 171 036746 Z13.31 depression screening tool administer ed, entered into emr, scored and discussed, time greater than 7.5 minutes Screening for alcohol abuse 915712345 Z13.39 no ETOH consumptio n Essential hypertension 00000123 I10 CLose to goal - meds will be changed now with new dx a-fib Chronic ob structive pulmonary disease 36420918 J44.[address] Xiong , pulmonary, yesterday. Now on trelegy but has only used once. Needing combivent inhaler multiple times/day and very SOB with exertion. Found to be in A-fib. Sent to ER. Tobacco user 999783126 Z 72.0 Strongly enc smoking cessation - has patches to use when ready Edema of l ower extremity 795149808 R60.0 Mild now - worse later in day Dyspnea on exertion 6084 5006 R06.09 Suspect from both his COPD/asthm a and cardiac cause. Found to be in new a-fib. Will need echo eventually - sent to ER Palpitations 89035404 R0 0.2 Atrial fibrillation 4943 6004 I48.91 New dx - pt now with low O2 sat, mild pedal/ankl e edema and increased sob - sent to ER for evaluation /treatment - records sent [id number] Johnnie Chaparro MD , [facility], [address] [place] [address] 02/23/2022 10:47:26 03/02/2022 13:36:38 Tobacco user 895223427 Z72.0 Strongly enc smoking cessation - has patches to use when ready Atrial fibrillation 4943 6004 I48.91 New dx - sent to ER from our office on 02/20 - now on metoprolol and xarelto. Given 3 days of lasix and lost over 5 lbs in fluid wt. Feels much improved. Not tachycardi c today in the office. O2 sat improved. Much less SOB. Enc. f/u with pulmonary and cardiology as planned. Edema of l ower extremity 003991351 R60.0 much improved since started metoprolol and took 3 days of lasix. F/u prn worsening sx. Chronic ob structive pulmonary disease 75574646 J44.[address] Xiong , pulmonary recently. Now on trelegy. O2 sat improved since treated for the a-fib. Did trial prednisone today (20 mg given by pulmonary to see if would help with his SOB - thought was allergic) and so far no adverse effects. Would hold off on further prednisone until he meets with cardiologi st and has f/u with pulmonary. [id number] Nataly Leslie DO , [facility], [address] [place] [address] 03/06/2022 10:29:54 03/06/2022 11:22:12 Smoker 69467306 F17.210 didnt discuss LDCT today Tobacco user 358703798 Z 72.0 Discussed and encourage smoking cessation. Patient contemplat ing but not ready. Encourage follow up if needing assistance with this.Is aware of importance 3 min counseling Persistent atrial fibrillation 381296010 I48.19 in AF today (new dx , tolerating xarelto and metop)Has appt with Cards in next weekspulse irreg but denies SOBEF on TTE 02/2022 25-30%On metoprolol , dose was incr from 50 to 100 mg recent weeksHR today is in 120sHas FU appt in one week ; may need to add another agent for improved rate control Chronic ob structive pulmonary disease 99585206 J44.9 with asthma overlapDxd in 2019pt feeling overall well, denies SOB/DOEO2 is 87Is not on supplement al [id number] to close follow up here in the office, < 1 wk to monitor closelyRec ently started trial of Trelegy, saw pulm 2 wks agoto have rpt CT Scan 06/2022 for mult nodules, but all < 5 mm Edema of l ower extremity 617980869 R60.0 will add lasix , short termdiscus sed need to monitor K if needing this more long termFU next week in office Hypoxia 044672571 R09.02 has had intermitte nt sats < 90 in past 2 yrsFU next week, under care of Pulm as wellMay need walk testing; pt does NOT have interest in suppl 02 [id number] Johnnie Chaparro MD , [facility], [address] [place] [address] 03/13/2022 11:58:25 03/19/2022 13:36:23 Tobacco user 890788974 Z72.0 Strongly enc smoking cessation - has patches to use when ready - is moving closer to feeling ready to quit Atrial fibrillation 4943 6004 I48.91 Accidental ly doubled up on the xarelto, not the metoprolol which was what he had been instructed to do - will send new rx - f/u if having trouble filling this early Chronic ob structive pulmonary disease 62019284 J44.[address] Xiong , pulmonary recently. Now on trelegy but was given samples and is out. New rx sent. Has f/u appt later this week with him. Breathing improved and O2 sat today 93% Benign ess ential hypertension 6013225 I10 Currently on lisinopril 30 mg and amlodipine 5 mg and only taking metoprolol 50 mg (told last visit to increase to 100 mg but misunderst ood). Enc increase starting today - HR still too fast. Has f/u with cardiology in the next few weeks. Continue other meds as prescribed . BP not quite at goal but should improve with higher dose metoprolol Congestive heart failure 10237260 I50.9 Much improved on Furosemide daily. Edema has resolved, breathing better. Will continue. Check bmp today and f/u with cardiology as planned. F/u here 3 months, sooner prn Persistent atrial fibrillation 947694854 I48.19 Continue xarelto but 1/day (Had been taking 2). No s/s bleeding. Double up on the metoprolol which should help with rate control. F/u with cardiology as planned. [id number] Yvette Spears MD , [facility], [address] [place] [address] 05/10/2022 08:27:45 05/10/2022 13:41:09 Tobacco user 932671197 Z72.0 Strongly enc smoking cessation - has patches to use when ready - is moving closer to feeling ready to quit - feels will quit completely very soon. Benign ess ential hypertension 2525446 I10 At goal. Tono current meds. Enc. continue current meds, healthy diet/exerc ise habits and f/u as planned for [place] in 6 mos. Chronic ob structive pulmonary disease 86607009 J44.9 Has f/u with pulmonary later this month. Using trelegy as prescribed , proair less frequently than previously . Still on prednisone taper. Enc smoking cessation and f/u prn worsening sx Congestive heart failure 51402299 I50.9 Will try to get him a scale. No edema. Lungs clear other than some sc wheezes. Continue low salt diet, O2, and f/u with cardiology as planned. Has upcoming labs scheduled. Persistent atrial fibrillation 444433287 I48.19 Continue xarelto as prescribed . Emphasized no ASA/NSAIDS . F/u with cardiology Chronic neck pain 275934 6806 107 M54.2 Seen at [facility] - they are prescribin g his pain meds. [id number] Yvette Spears MD , [facility], [address] [place] [address] 06/07/2022 14:53:14 06/07/2022 15:53:36 Tobacco user 038288592 Z72.0 working on cutting back using nicotrol prn Chronic ob structive pulmonary disease 65259693 J44.9 stable on meds Persistent atrial fibrillation 405511635 I48.19 cardiovert edno sxfollowup cardio Chronic re spiratory failure 59033872 J96.10 on oxygen [id number] Yvette Spears MD , [facility], [address] [place] [address] 06/12/2022 10:30:31 06/12/2022 14:10:31 Essential hypertension 28944149 I10 Has been at goal - enc cont current meds and f/u with cardiology as planned Chronic ob structive pulmonary disease 97221387 J44.9 Improved on Trelegy - has nebulizer to use prn, albuterol MDI for less severe sx. Strongly enc smoking cessation. Now is almost 100% O2 dependent and would like to get off the O2. Reviewed with pt that continued smoking will decrease the likelihood of him being able to stop the O2. Cont f/u with pulmonary as planned. Tobacco user 437934439 Z 72.0 Strongly enc smoking cessation - has patches to use when ready - is moving closer to feeling ready to quit - feels will quit completely very soon. Congestive heart failure 43566951 I50.9 Lasix dose decreased recently to 40 mg QD. No edema. Continue low salt diet, O2, and f/u with cardiology as planned. Has upcoming labs scheduled. Persistent atrial fibrillation 888887443 I48.19 Continue xarelto as prescribed . Emphasized no ASA/NSAIDS . F/u with cardiology [id number] Nataly Leslie DO , [facility], [address] [place] [address] 08/14/2022 09:12:34 08/14/2022 09:59:15 Essential hypertension 08341174 I10 Improved on repeat- enc cont current meds and f/u with cardiology as planned Tobacco user 624400731 Z 72.0 We discussed your smoking today for more than 3 minutes. Cigarette use is the leading cause of preventabl e disease, disability , and in the [place]. We talked about tools and medication s available to help you in smoking cessation. We discussed utilizing our smoking cessation high school academic coach and online resources. Your personal goal: continue to wean off of cigarettes completely Chronic ob structive pulmonary disease 13449820 J44.9 See HPI for detailed history Stable on O2 continuous ly.F/u with pulmonary as planned and cont. current meds Persistent atrial fibrillation 220259703 I48.19 Continue xarelto as prescribed . Emphasized no ASA/NSAIDS . F/u with cardiology Congestive heart failure 44464736 I50.22 Has cardiomyop athy and supposed to be getting implanted defibrilla tor. EKG done today and copy will be faxed to cardiac surgeon (Dr. Chavarria) at [facility]. Pre-surger y evaluation 035082042 Z01.818 Chronic re spiratory failure 78558175 J96.10 Letter given again for Transition al assistance stating pt disabled and on continuous O2. [employer] handicappe d rios paperwork also completed and given to pt. Enc cont f/u with pulmonary, continue current meds and f/u prn worsening sx [id number] Yvette Spears MD , [facility], [address] [place] [address] 09/14/2022 10:41:40 09/14/2022 13:49:51 Tobacco user 856533910 Z72.0 We discussed your smoking today for more than 3 minutes. Cigarette use is the leading cause of preventabl e disease, disability , and in the [place]. We talked about tools and medication s available to help you in smoking cessation. We discussed utilizing our smoking cessation high school academic coach and online resources. Your personal goal: continue to work towards complete smoking cessation Benign ess ential hypertension 4844871 I10 At goal. Tono current meds. Enc. continue current meds, healthy diet/exerc ise habits and f/u as planned in November Chronic ob structive pulmonary disease 78086928 J44.9 See HPI for detailed historySta ble on O2 continuous ly when active - able to remove when sitting quietly, resting. .F/u with pulmonary as planned and cont. current meds Congestive heart failure 53436390 I50.22 Reviewed recent cardiology consult note. EF improved to 35-40% and no longer is considered candidate for an implantabl e defib. F/u with cardiology and planned or if having increased SOB/edema. Persistent atrial fibrillation 219802164 I48.19 Continue xarelto as prescribed . Emphasized no ASA/NSAIDS . F/u with cardiology . Reviewed c/o bleeding gums. Enc pt to f/u with dentist. [id number] Yvette Spears MD , [facility], [address] [place] [address] 12/20/2022 08:38:52 12/20/2022 11:20:34 Tobacco user 660133376 Z72.0 We discussed your smoking today for more than 3 minutes. Cigarette use is the leading cause of preventabl e disease, disability , and in the [place]. We talked about tools and medication s available to help you in smoking cessation. We discussed utilizing our smoking cessation high school academic coach and online resources. Your personal goal: Work on cutting down on cig smoking and contact me if needing help with this Benign ess ential hypertension 0016860 I10 Not at goal. Had beta emre decreased recently by cardiology . Also on furosemide and Entresto (but hasn't taken furosemide today). ? consider increasing entresto next visit if not at goal. Keep track of home BP - reviewed goal of <130/80 Chronic ob structive pulmonary disease 30867866 J44.9 Stable on O2 continuous ly when active - able to remove when sitting quietly, resting. .F/u with pulmonary as planned and cont. current meds. Will have our nurses work on trying to get him a portable O2 concentrat or. Strongly enc smoking cessation Congestive heart failure 76917693 I50.22 Reviewed recent cardiology consult note. EF improved to 35-40% and no longer is considered candidate for an implantabl e defib. F/u with cardiology as planned or if having increased SOB/edema. Coronary atherosclerosis 009881269 I25.10 Denies any recent CP Persistent atrial fibrillation 039088388 I48.19 Continue xarelto as prescribed . Emphasized no ASA/NSAIDS . F/u with cardiology . Reviewed c/o bleeding gums. Enc pt to f/u with dentist. Laceration of forehead 355463162 S01.81XA Wound with some scabbing but no s/s infection. Sutures removed as above. Don't scrub off scab - let it come off naturally. F/u prn if not continuing to heal or any other concerns [id number] Yvette Spears MD , [facility], [address] [place] [address] 02/26/2023 07:55:22 02/26/2023 08:40:00 Tobacco user 994762516 Z72.0 We discussed your smoking today for more than 3 minutes. Cigarette use is the leading cause of preventabl e disease, disability , and in the [place]. We talked about tools and medication s available to help you in smoking cessation. We discussed utilizing our smoking cessation high school academic coach and online resources. Your personal goal: keep working to quit - has cut back and congratula tracy Congestive heart failure 28420182 I50.22 Tried to get entresto refilled from cardiology but has gotten no response - completely out of meds. New rx sent - may need PA Atrial fibrillation 4943 6004 I48.91 Seems to be in NSR today. Needs refills on the xarelto which is on hold until he has repeat CBC later this week Anemia 133909031 D64.9 Needs close monitoring of cbc. Has f/u with GI today to get video endoscopy If cbc stable or improving on 02/28, will restart his xarelto and repeat cbc weekly. Cont. to hold the ASA. Pt has had no s/s bleeding, no black stools or abdominal pain. Benign ess ential hypertension 3680887 I10 Not at goal but hasn't taken meds today and is out of his entresto. Cont. to monitor at home. Reviewed goal of <130/80. Chronic re spiratory failure 10356358 J96.10 Requires 24 hour O2. Will try again to get him a portable O2 concentrat or [id number] DO KIANNA Calvert, [facility], [address] [place] [address] 06/11/2023 15:11:42 06/11/2023 17:38:40 Benign essential hypertension 9266941 I10 At goal. Continue current meds, ETOH abstinence and f/u as planned. Coronary atherosclerosis 297536316 I25.10 Denies any recent CP Persistent atrial fibrillation 457578996 I48.19 Continue xarelto as prescribed . Emphasized no ASA/NSAIDS . F/u with cardiology as planned Chronic ob structive pulmonary disease 27689525 J44.9 Stable on O2 continuous ly when active - able to remove when sitting quietly, resting. .F/u with pulmonary as planned and cont. current meds. Congestive heart failure 88958838 I50.22 Reviewed cardiology consult notes. EF had improved to 35-40% and no longer is considered candidate for an implantabl e defib. F/u with cardiology as planned or if having increased SOB/edema. Tobacco user 249358769 Z 72.0 Did not discuss today as pt left in middle of appt to go drive son to work Alcoholism 6774788 F10.2 0 Tried to get into detox facility and they wouldn't take him d/t his co-morbidi ties. Pt hasn't had a drink in 4 days and feels can continue to remain sober - GF as well is working on sobriety. Discussed that I can't give him naltrexone as he takes oxycodone daily for chronic pain. There are other options (i.e. acamprosat e) but I'm worried about interactio ns with his other meds and respirator y depression . Should not increase his gabapentin or take librium/va lium d/t he is a CO2 retainer. Pt and GF could check out options at [facility] for support with sobriety. Unfortunat vivek pt left in middle of appt - had to drive son to work. Enc GF to have him f/u if needing additional help or other concerns. [id number] Yvette Spears MD , [facility], [address] [place] [address] 09/05/2023 07:42:15 09/05/2023 08:53:11 Adult health examination [id number] Z00.00 see risk assesment and counseling section Depression screening 171 412878 Z13.31 depression screening tool administer ed Screening for alcohol abuse 019839565 Z13.39 Alcohol use screening tool administer ed Screening for malignant neoplasm of prostate 812278565 Z12.5 PSA testing for ages 55-69 risks and benefits discussed patient declines testing. Nicotine dependence 5629 4008 F17.200 We discussed your smoking/va ping today for more than 3 minutes. Cigarette/ pod use is the leading cause of preventabl e disease, disability , and in the [place]. We talked about tools and medication s available to help you in smoking/va ping cessation. We discussed utilizing our smoking cessation high school academic coach and online resources. Your personal goal: Working on cutting back and eventually quitting. Wants to try bupropion which we discussed could also help with his moods/ener gy level - F/u 1 month to reevaluate Vaccination not done 818 [id number] 9108 Z28.29 Patient declined the flu vaccine at this time. Chronic ob structive pulmonary disease 64330818 J44.9 Doing better - using O2 at night and prn during the day with exertion, walking longer distances. States breathing better if doubles up on his oxycodone which is prescribed by physiatry. Enc to f/u with them to discuss if increasing dose is appropriat e. Sees pulmonary and has repeat CT chest scheduled for October Congestive heart failure 20139781 I50.22 Reviewed cardiology consult notes. EF had improved to 35-40% and no longer is considered candidate for an implantabl e defib. F/u with cardiology as planned or if having increased SOB/edema. Coronary atherosclerosis 616497861 I25.10 Denies any recent CP - f/u with cardiology Alcoholism 2665684 F10.2 0 Quit drinking in Jun. with no assistance - congratula tracy and enc continued sobriety Benign ess ential hypertension 8167983 I10 At goal. Continue current meds, ETOH abstinence and f/u as planned. Chronic pain 01316909 G8 9.29 Due to neck, low back and other joint pains. Followed at [facility]. They have been prescribin g oxycodone for him x yrs - he rarely sees them. Recently has tried increasing the dose (doubles up in the a.m.). Discussed needs to go back to [facility] for a visit to discuss continued use of narcotics which he feels are helping him to remain active Persistent atrial fibrillation 718600761 I48.19 Continue xarelto as prescribed . Emphasized no NSAIDS. F/u with cardiology as planned [id number] Yvette Spears MD , [facility], [address] [place] [address] 10/03/2023 08:20:38 10/04/2023 11:43:54 Nicotine dependence 26562071 F17.200 We discussed your smoking/va ping today for more than 3 minutes. Cigarette/ pod use is the leading cause of preventabl e disease, disability , and in the [place]. We talked about tools and medication s available to help you in smoking/va ping cessation. We discussed utilizing our smoking cessation high school academic coach and online resources. Your personal goal:Try your nicotrol inhaler again, cont. the wellbutrin Benign ess ential hypertension 0530331 I10 Not at goal but hasn't taken meds today. Enc go home and take them, .cont ETOH abstinence and f/u as planned with new PCP in 6 weeks. Chronic ob structive pulmonary disease 62605686 J44.9 Doing better - using O2 at night and prn during the day with exertion, walking longer distances. Sees pulmonary and will get repeat CT chest scheduled for October Congestive heart failure 50233828 I50.22 Reviewed cardiology consult notes. EF had improved to 35-40% and no longer is considered candidate for an implantabl e defib. F/u with cardiology as planned or if having increased SOB/edema. Coronary atherosclerosis 956779830 I25.10 Denies any recent CP - f/u with cardiology Alcoholism 3713335 F10.2 0 Quit drinking in Jun. with no assistance - relapsed about a week ago for 3-4 days but now back on track - enc f/u with [employer] and/or AA which he is planning to do - enc. cont. sobriety Atrial fibrillation 4943 6004 I48.91 Seems to be in NSR today. Refilled his amiodarone - enc f/u with cardiology as planned [id number] CJ GONZALEZ, , [facility], [address] [place] [address] 08/27/2024 14:30:53 09/29/2024 18:46:06 Coronary atherosclerosis 621650082 I25.10 Hemorrhagi c StrokeExpe rienced brain bleeding causing fatigue and weakness. Frequent hospitaliz ations and rehabilita tion have impacted health.- Coordinate cardiology follow-up to adjust medication s, especially metoprolol , for heart rate and blood pressure management .- Continue physical and occupation al therapy to enhance strength and mobility.- Monitor for fluid retention and adjust diuretics as needed. Congestive heart failure 44382193 I50.22 Heart Failure Heart failure managed with Entresto and metoprolol . Low heart rate contribute s to fatigue and weakness. - Adjust metoprolol to 25 mg extended release to increase heart rate. - Monitor heart rate and symptoms closely. - Coordinate with cardiology for further management . Anemia [id number] D64.9 f/u cbc. surveillan ce. Epistaxis Epistaxis occurred after restarting Xarelto, possibly due to anticoagul ation. - Monitor for further epistaxis episodes and assess anticoagul ation therapy adjustment . Health Concerns Section Related Observation LastModified by Organization Detai ls LastModified Time None Recorded Concern Status LastModified by Organization Details LastModified Time None Recorded Advance Directives Directive None Recorded Payers Insurance Date Sequence Insurance Name Policy Number Policy Rogers Covered Member ID Rogers Member ID Guarantor Name 12/07/2024 1 [facility] Yousif Orellana [id number] Yousif Orellana 12/07/2024 1 [place] [employer] Yousif Orellana [id number] Yousif Orellana 12/07/2024 2 [place] [facility] Yousif Orellana [id number] Yousif Orellana 12/07/2024 1 [place] [facility] Yousif Orellana [id number] Yousif Orellana 12/07/2024 1 [place] [facility] Yousif Orellana [id number] Yousif Orellana 12/07/2024 1 [place] PRIOR TO 2022 - [facility] (MEDICAID) Yousif Orellana [id number] Yousif Orellana 12/07/2024 1 [facility] - DOS ON OR AFTER 2022 - [facility] (MEDICAID REPLACEMENT - HMO) Yousif Orellana [id number] Yousif Orellana 06/11/2023 TRAVELERS [employer]ANCE [employer] [facility] Yousif West Reyna 12/07/2024 1 [facility] (O) Yousif Orellana [id number] Yousif Orellana 04/19/2016 1 *SELF PAY* Freda West Reyna 11/07/2020 1 *SELF PAY* Freda West Reyna 11/24/2019 TRAVELERS INSURANCE [employer] Yousif Orellana 12/07/2024 1 [facility] (O) Yousif Orellana [id number] Yousif Orellana 12/07/2024 1 [facility] (O) [id number] Yousif Orellana [id number] Yousif Orellana 11/24/2019 TRAVELERS [employer] Yousif Orellana Notes Date Note Type Note Provider Name and Address Organization Details Recorded Time 3 text/html COPDHPIReported bypatient.Onset/Evaluatio nYear of diagnosis if known; Diagnosis is made based on clinical Symptom Assessmentsputum Medicationscompliant with medications MRC Dyspnea Scalegrade 3, stopping for breath after walking 100 yards or after a few minutesNotes:O2 at 2L cont - up to 3L when activeVMG HypertensionReported bypatient.Context:No ischemic heart disease; No kidney disease; No history of CVA; No congestive heart failure; No history of transient ischemic attacks; No peripheral vascular disease; No history of diabetes Control:Patient understands medications are to lower blood pressure Compliance:Compliant with medications; Compliant with diet; Compliant with follow-up visits;Noncompliant with exercise; hard to exercise d/t his chronic back/neck pain Barriers to Careunder stress Self Care:not doing home bp monitoring Aggravating factors:counseled to increase activity; counseled to lose weight; counseled to decrease caffeine intake; counseled to decrease alcohol use; counseled to decrease salt intake; counseled to stop smoking Associated Symptoms:No chest pain; No shortness of breath; No edema; No fatigue; No palpitations; No decline in exercise capacity; No snoring Ability to Manage Self CarePatient feels confident in ability to self manage conditionNotes:Hasn't taken BP meds yet today and out of his entresto - told needs PT - tried to get from cardiology and they haven't done benji/vmg-smoking keeyefigw5Hwswmypi bypatient.Notes:about 12 cigs/day - had been 1-2 ppd - is working on quitting gradually - had patches in hospital - F/u from recent hospitalization - Hgb 5 (from 12.). ASA and xarelto are on hold. Got 2 ux RBC's in hospital. No s/s bleeding. Neg colonoscopy and upper endoscopy.Still using O2 24 hours/day.2-3 LNeed O2 concentrator but insurance has repeatedly denied this - pulmonary sent orders and they denied it Marlene Harden NP [address] [place], [address], [facility] 02/26/2023 13:17:15 3 text/html a/vmg-smoking [id number] bypatient.Notes:Didn't discuss today - strong smell of cigs on his person - pt here to discuss problems with ETOH dependency Went to ER to try and get detox for ETOH - Given IV and librium to take at home - called around to try and get a bed - Got a bed at [facility] after waiting for 6 hours 2 days after going to ER - After that they were told they couldn't keep him, he was too medically complicated - was going into detox with GF (they both had beds) so they both left, checked into a motel and drankW[facility] to [facility] the [facility] - pt was confused d/t high CO2 levels - was given CPAP - they d/c'd him last night -now has CPAP at homeETOH consumption prior to this 5-17 drinks/day - more when GF's kids were away for the weekend (they are 16 and 9 y.o.)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 if shouldHaving some dry heaving but not as bad today - hasn't had a drink in 4 days now and denies any significant withdrawal sxEating normally now Gabapentin was increased to 600 mg TID in the rehab but they didn't stay so he never got higher dose Doesn't want to look for another detox bed - feels has detoxed, just needs help to continue not to drinkCan't take naltrexone d/t on chronic narcotics for his back pain (oxycodone) Marlene Harden NP [address] [place], [address], [facility] 06/12/2023 11:08:05 4 text/html Risk Assessment and Lifestyle Change Counseling 65+ (Medicare)Reported bypatient.Coronary Artery Disease Risk Assessment:Personal history coronary artery disease Breast Cancer Risk Assessment:No family history of breast cancer; No history of breast cancer or dcis Colon Cancer Risk Assessment:No family history of pre cancerous colon polyps or cancer Lung Cancer Risk Assessment:Current smoker Cognitive/Behavioral Risk Assessment:Alcohol use counseled less than 7.5 minutes Diet:Counseled about appropriate portion size; Discussed the value of a Mediterranean diet , and eating more fruits and vegetables Exercise counseling:Discussed the importance of daily physical activity; Discussed the importance of weight bearing exercise Safety:Counseled about avoiding excessive and unsafe alcohol intake; An audit alcohol screening was performed and scored. Patient was asked about alcohol use. Advised about risks of alcohol. Personal risk was assessed. Patient agreed to plan and given information about available resources if needed. Discussion including screening and scoring greater than 7.5 minutes..VMG HypertensionReported bypatient.Context:No ischemic heart disease; No kidney disease; No history of CVA; No congestive heart failure; No history of transient ischemic attacks; No peripheral vascular disease; No history of diabetes Control:Patient understands medications are to lower blood pressure Compliance:Compliant with medications; Compliant with diet; Compliant with follow-up visits;Noncompliant with exercise; hard to exercise d/t his chronic back/neck pain Barriers to Careunder stress Self Care:not doing home bp monitoring Aggravating factors:counseled to increase activity; counseled to lose weight; counseled to decrease caffeine intake; counseled to decrease alcohol use; counseled to decrease salt intake; counseled to stop smoking Associated Symptoms:No chest pain; No shortness of breath; No edema; No fatigue; No palpitations; No decline in exercise capacity; No snoring Ability to Manage Self CarePatient feels confident in ability to self manage conditiona/vmg-smoking [id number] bypatient.Notes:about 12 cigs/day - had been 1-2 ppd - is working on quitting gradually - had patches in hospital - pt is here for annual wellness.Dental work - had bleeding after because of his xarelto - went to [facility] - detoxed self - hasn't had a drink since weather causes increased pains in back/tuvgdn2Pihgq - does better if takes double dose of oxycodone - will run out - being able to move more helps his breathingHx DJD in neck, hx broken bones from injuries, knees are shot - followed at [facility] - they prescribe but don't do anything else for himSees cardiology soonDr. Inga is pulmonary - has CPAP - not using since dental work but does use O2 at - rarely uses O2 during the dayHas therapist for his depression/ETOH Marlene Harden, [employer] [address] [place] [address] [place], [address], [facility] 09/05/2023 11:52:20 4 text/html a/vmg-smoking [id number] bypatient.Notes:Has cut back to 1/2 ppd or less - on wellbutrin to help with smoking cessation - has nicotrol inhaler but not using currently Patient presents to the office for 1 month f/u Sees Dr. Morales - cardiologyDr. Xiong - pulmonary - due for repeat CT Scan October Using O2 with exertion prn Chronic pain - followed at [facility] - on fpc narcotics for this - neck/back - getting facet injections soon - hoping that new PCP will take over prescribing his narcotics ETOH - lapsed last week for few days - none now for 5 days - thinking of joining group AA or [employer] Marlene Harden NP [address] [place], [address], [facility] 10/03/2023 09:23:31 5 text/html In patient f/uPt released from Hosp and rehab. 08/08. Keppra and lisinopril doses cannot be verified. Feels better today but fatigued and dehydrated. CC Note: Pt was admitted to [facility] on 08/09/24 D/C and transferred to [facility] on 08/13/24. Pt was at [facility] on 08/13/24 and left [place] on 08/24/24.Dx- CHF w/ reduced ejection fraction/Intraparenchymal hematoma of brain/Midline shift of brain/vasogenic brain/A fib/Asterixis/RSV/COPD.BM C: started pt on Lisinopril 10mg daily and Prednisone 20mg two tabs daily for 5 days, Changed xarelto 20mg on hold and to restart on 08/26/24.Pt was transferred to [facility]. Left [facility] [place] on 08/24/24.Called [facility], spoke to nurse on unitDanay, requested records.Called pt, lmtcb.( pt has CPE w/ PC on 09/07/24, ? change to TC[facility] ) [facility] services - PT/OT 1x per week? cardiology - chadergi?Right lentiform nucleus evolving parenchymal hematoma with slightly decreased hyperdense components, and slightly increased surrounding edema. Leftward midline shift by 3 to 4 mm, slightly worse. History of Present IllnessThe patient, with a complex medical history including a recent stroke, pneumonia, seizures, and heart problems, presents with increasing fatigue and decreased appetite since discharge from a rehabilitation center. The patient's partner reports that the patient seems weaker and is not drinking enough fluids. The patient also reports difficulty carrying his oxygen tank due to its weight. The patient's medications include Keppra, furosemide, metoprolol, Entresto, and Xarelto. The patient's partner mentions that the patient is not using his CPAP machine and is not doing his albuterol treatment as prescribed. The patient's partner expresses concern about the patient's declining health and the frequency of hospitalizations. CJ GONZALEZ, DO [address] [place] [address], [phone], [facility] 09/28/2024 10:41:04
--- OUTSIDE RECORDS SUMMARY | 2025-01-22 05:49 | XMS_ITS | Clinical Summary ---
Author Organization [facility] Facility Address [address] [place] [address] Care Team Providers Care Dog Or Horse Racing Official Name Role Phone Marlene Harden NP Primary Care Provider [phone] Social History Tobacco Use Types Packs/Day Years [...] patient's age to complete this topic Insurance [facility] Plan Care Teams Dog Or Horse Racing Official Relationship Specialty Start Date End Date Marlene Harden NP [address] [place] [address] PCP - General Nurse Practitioner 03/05/23
[2025-01-22 06:53] LABS: Thyroid Stimulating Hormone 1.16 uIU/mL (0.32-4.0)
== END 2025-01-22 05:47 | disposition home or self-care (01) ==
LOC: HO.MMNH1L 05:46
PROVIDERS: Visit Provider Family Medicine
DX: I10 Essential (primary) hypertension (principal); I48.91 Unspecified atrial fibrillation; J44.9 Chronic obstructive pulmonary disease, unspecified
CPT/HCPCS: 36415; 84443

== ENCOUNTER 2025-01-25 05:57 | Outpatient (REF) | payer MEDICARE, SELFPAY ==
[2025-01-25 05:53] LABS: MANUAL DIFF FLAG NO
--- OUTSIDE RECORDS SUMMARY | 2025-01-25 06:00 | XMS_ITS | Encounter Summary ---
Author Organization [facility] Address [address] [place] [address] Phone Care Team Providers Care Adult School Teacher Name Role Phone Marlene Harden NP Primary Care Provider Unavaila ble Dennis Temple MBBS Unavailable Gabriela Barnhart FINANCIAL PLANNING CONSULTANT Unavailable Cj Meyer DO Primary Care Provider [phone] Encounter Details Date Type Department Care Team (Late st Contact Info) Description 10/03/2023 Procedure Pass [facility], Ct Scan - [facility] [place] [address] [place] [address] Social History Tobacco Use Types Packs/Day Years [...] Care Team (Late st Contact Info) Description 03/16/2025 9:00 AM EDT Office Visit [facility] Pulmonary, Allergy and Critical Care Medicine [address] [place] [address] Conner Sneed MD [address] [place] [address] [email or web address] 03/29/2025 10:15 AM EDT Office Visit [facility] [address] [place] [address] [address]rd [facility], [address] [place] [address] Zack Sanchez DO [address] [place] [address] Scheduled Procedures Name Priority Associated Diagnoses Date/Ti me 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 Primary Oncologist Hematology and Oncology 04/02/23 Gabriela Barnhart CNP [address] [place] [address] [email or web address] Nurse Practitioner Medical Oncology 01/16/24 documented as of this encounter Additional Source Comments The information contained in this document represents components of the legal health record. It is not the complete legal health record.[facility]
--- OUTSIDE RECORDS SUMMARY | 2025-01-25 06:01 | XMS_ITS | Data Portability ---
Author Organization [facility], [facility] Address [address] [place] [address] [address] Team [address] Care Road Crew Member Name Role Phone [facility] Prospecting Driller ADORE SY Primary Care Provider JR VARGAS Barrel Coater [phone] Assessment Encounter Date Assessment Date Assessment LastModified [...] colorectal screenin.. will get colonoscopy report from [facility] - had fall 2022 - ? 5-10 [...] None [facility] CBC 2024 025 [facility], [address] [place] [address], [address], 5 11:16:23 CMP, serum or plasma 2024 025 [facility], [address] [place] [address], [address], 5 14:02:36 CBC 2023 024 [email or web address] [facility], [address] [place] [address], [address], 5 11:25:58 lipid panel, serum 2023 024 [email or web address] [facility], [address] [place] [address], [address], 5 11:26:23 CBC 2022 023 [facility], [address] [place] [address], [address], 3 11:03:00 CBC 2022 023 [facility], [address] [place] [address], [address], 3 12:16:05 CBC 2022 023 [facility], [address] [place] [address], [address], 3 09:48:56 CBC 2022 023 [facility], [address] [place] [address], [address], 3 17:15:20 [facility] 2022 023 [email or web address], [address] [facility], [place], [address], 3 14:30:13 CBC 2022 023 [facility], [address] [place], [address], 3 12:36:39 Referral None recorde d. Procedures None recorde d. Surgeries None recorde d. Imaging LDCT, chest, for lung cancer screeni ng - 58 y.o. with COPD, 30+ pack year smoker 1/2ppd - due for LDCT after 11/02/232023 024 [email or web address] [facility], [address] [place], [address], 4 13:37:57 Medication Orders amiodar one 200 mg tablet 2023 024 [email or web address] [id number], [address] [place] [address], [address], 5 08:45:05 bupropi on HCl SR 150 mg tablet, 12 hr sustain ed-rele ase 2023 024 [email or web address] [id number], [address] [place] [address], [address], 4 08:24:36 Xarelto 20 mg tablet 2022 023 [email or web address] [id number], [address] [place] [address], [address], 3 12:36:21 Entrest o 24 mg-26 mg tablet 2022 023 [email or web address] [id number], [address] [place] [address], [address], 5 13:30:26 Patient TargetsNo targets recorded. Patient Instructions Encounter Date Encounter Id Patient Instructions Last Modified By Organization Details Last Modified Time 02/26/2023 [id number] After a discussi on of treatment options, which included consideration of best practices, patient preferences, and the patient s individual lifestyle and treatment goals, as well as consideration and attempted mitigation of any barriers to meeting the patient s goals, the above treatment plan and objectives were adopted: [email or web address] Not available 02/26/2023 13:16:08 06/11/2023 [id number] CCM: The provide r and patient discussed the Chronic Care Management program, including the services provided, and any fees associated with them. [email or web address] Not available 06/11/2023 12:19:40 09/05/2023 [id number] After a discussi on of treatment options, which included consideration of best practices, patient preferences, and the patient s individual lifestyle and treatment goals, as well as consideration and attempted mitigation of any barriers to meeting the patient s goals, the above treatment plan and objectives were adopted: [email or web address] Not available 09/05/2023 11:51:04 10/03/2023 [id number] After a discussi on of treatment options, which included consideration of best practices, patient preferences, and the patient s individual lifestyle and treatment goals, as well as consideration and attempted mitigation of any barriers to meeting the patient s goals, the above treatment plan and objectives were adopted: [email or web address] Not available 10/03/2023 09:21:28 08/27/2024 [id number] I am aware of [facility] inpatient facility discharge medications, the medication [...] date of sample 2022,2 359 Not Available [facility] [address] [place], [address], 02/20/2023 23:28:23 02/21/20 23 02/20/2023 HOLD SPECI MEN IN BLOOD BANK (NO TESTI NG PERFO RMED) resulting agency [facility] Not Available [facility] [address] [place], [address], 02/20/2023 23:28:23 02/21/20 23 02/20/2023 CBC AND DIFFE RENTI AL WBC 10.50 K/uL 4.00-1 1.00 Not Available [facility] [address] [place], [address], 02/20/2023 23:35:06 02/21/20 23 02/20/2023 CBC AND DIFFE RENTI AL RBC 2.05 M/uL 3.90-5 .69 low Not Available [facility] [address] [place], [address], 02/20/2023 23:35:06 02/21/20 23 02/20/2023 CBC AND DIFFE RENTI AL HGB 5.0 g/dL 12.4-1 7.3 critical low This resul t has been del cid d to AMARILIS Albarran by Sylvia Morales on 02 20 2023 at 2334, and has been read back. Not Available [facility] [address] [place], [address], 02/20/2023 23:35:06 02/21/20 23 02/20/2023 CBC AND DIFFE RENTI AL HCT 17.3 % 37.0-5 1.0 low Not Available [facility] [address] [place], [address], 02/20/2023 23:35:06 02/21/20 23 02/20/2023 CBC AND DIFFE RENTI AL plt 456 K/uL 140-43 0 high Not Available [facility] [address] [place], [address], 02/20/2023 23:35:06 02/21/20 23 02/20/2023 CBC AND DIFFE RENTI AL MCV 84.4 fL 78.0-9 7.0 Not Available [facility] [address] [place], [address], 02/20/2023 23:35:06 02/21/20 23 02/20/2023 CBC AND DIFFE RENTI AL MCH 24.4 pg 25.0-3 3.0 low Not Available [facility] [address] [place], [address], 02/20/2023 23:35:06 02/21/20 23 02/20/2023 CBC AND DIFFE RENTI AL MCHC 28.9 g/dL 32.0-3 6.0 low Not Available [facility] [address] [place], [address], 02/20/2023 23:35:06 02/21/20 23 02/20/2023 CBC AND DIFFE RENTI AL RDW 18.4 % 11.0-1 5.0 high Not Available [facility] [address] [place], [address], 02/20/2023 23:35:06 02/21/20 23 02/20/2023 CBC AND DIFFE RENTI AL MPV 9.2 fL 8.4-12 .8 Not Available [facility] [address] [place], [address], 02/20/2023 23:35:06 02/21/20 23 02/20/2023 CBC AND DIFFE RENTI AL diff method AUTO Not Available [facility] [address] [place], [address], 02/20/2023 23:35:06 02/21/20 23 02/20/2023 CBC AND DIFFE RENTI AL neuts 67.8 % 43.0-7 5.0 Not Available [facility] [address] [place], [address], 02/20/2023 23:35:06 02/21/20 23 02/20/2023 CBC AND DIFFE RENTI AL lymphs 16.9 % 18.2-4 7.4 low Not Available [facility] [address] [place], [address], 02/20/2023 23:35:06 02/21/20 23 02/20/2023 CBC AND DIFFE RENTI AL monos 9.3 % 4.00-1 1.00 Not Available [facility] [address] [place], [address], 02/20/2023 23:35:06 02/21/20 23 02/20/2023 CBC AND DIFFE RENTI AL eos 3.4 % 0.0-8. 0 Not Available [facility] [address] [place], [address], 02/20/2023 23:35:06 02/21/20 23 02/20/2023 CBC AND DIFFE RENTI AL basos 0.8 % 0.0-2. 0 Not Available [facility] [address] [place], [address], 02/20/2023 23:35:06 02/21/20 23 02/20/2023 CBC AND DIFFE RENTI AL granulocytes , immature (%) 1.8 % 0.0-0. 9 high Not Available [facility] [address] [place], [address], 02/20/2023 23:35:06 02/21/20 23 02/20/2023 CBC AND DIFFE RENTI AL absolute neuts 7.12 K/uL 1.80-7 .70 Not Available [facility] [address] [place], [address], 02/20/2023 23:35:06 02/21/20 23 02/20/2023 CBC AND DIFFE RENTI AL absolute lymphs 1.77 K/uL 1.00-3 .10 Not Available [facility] [address] [place], [address], 02/20/2023 23:35:06 02/21/20 23 02/20/2023 CBC AND DIFFE RENTI AL absolute monos 0.98 K/uL 0.20-0 .80 high Not Available [facility] [address] [place], [address], 02/20/2023 23:35:06 02/21/20 23 02/20/2023 CBC AND DIFFE RENTI AL absolute eos 0.36 K/uL 0.00-0 .80 Not Available [facility] [address] [place], [address], 02/20/2023 23:35:06 02/21/20 23 02/20/2023 CBC AND DIFFE RENTI AL absolute basos 0.08 K/uL 0.00-0 .09 Not Available [facility] [address] [place], [address], 02/20/2023 23:35:06 02/21/20 23 02/20/2023 CBC AND DIFFE RENTI AL granulocytes , immature 0.19 K/uL 0.00-0 .05 high Not Available [facility] [address] [place], [address], 02/20/2023 23:35:06 02/21/20 23 02/20/2023 PT-IN R PT 11.6 sec 10.2-1 2.9 Not Available [facility] [address] [place], [address], 02/20/2023 23:39:57 02/21/20 23 02/20/2023 PT-IN R INR 1.0 0.9-1. 1 Thera peuti c range for oral Vitam in K antag onist s: 2.0-3 .5 Not Available [facility] [address] [place], [address], 02/20/2023 23:39:57 02/21/20 23 02/20/2023 BASIC METAB OLIC PANEL sodium 134 mmol/ L 133-14 6 Not Available [facility] [address] [place], [address], 02/20/2023 23:46:59 02/21/20 23 02/20/2023 BASIC METAB OLIC PANEL chloride 95 mmol/ L 96-108 low Not Available [facility] [address] [place], [address], 02/20/2023 23:46:59 02/21/20 23 02/20/2023 BASIC METAB OLIC PANEL potassium 4.7 mmol/ L 3.3-5. 1 Not Available [facility] [address] [place], [address], 02/20/2023 23:46:59 02/21/20 23 02/20/2023 BASIC METAB OLIC PANEL CO2 32 mmol/ L 21-35 Not Available [facility] [address] [place], [address], 02/20/2023 23:46:59 02/21/20 23 02/20/2023 BASIC METAB OLIC PANEL BUN 13 mg/dL 6-19 Not Available [facility] [address] [place], [address], 02/20/2023 23:46:59 02/21/20 23 02/20/2023 BASIC METAB OLIC PANEL creatinine 1.00 mg/dL 0.5-1. 5 Not Available [facility] [address] [place], [address], 02/20/2023 23:46:59 02/21/20 23 02/20/2023 BASIC METAB OLIC PANEL glucose 103 mg/dL 70-99 high Not Available [facility]) [address] [place], [address], 02/20/2023 23:46:59 02/21/20 23 02/20/2023 BASIC METAB OLIC PANEL calcium 8.4 mg/dL 8.4-10 .3 Not Available [facility] [address] [place], [address], 02/20/2023 23:46:59 02/21/20 23 02/20/2023 BASIC METAB OLIC PANEL eGFR 87 mL/mi n/1.7 3m2 >59 Estim ated glome rular filtr ation rate calcu lated using the CKD-E PI refit equat ion. Not Available [facility] [address] [place], [address], 02/20/2023 23:46:59 02/21/20 23 02/20/2023 BASIC METAB OLIC PANEL anion gap 12 mmol/ L 10-20 Not Available [facility] [address] [place], [address], 02/20/2023 23:46:59 02/21/20 23 02/20/2023 LFTS (HEPA TIC PANEL ) alkaline phosphatase 78 U/L 39-117 Not Available [facility]) [address] [place], [address], 02/20/2023 23:47:00 02/21/20 23 02/20/2023 LFTS (HEPA TIC PANEL ) total bilirubin <0.2 mg/dL 0.0-1. 2 Not Available [facility] ([facility]) [address] [place], [address], 02/20/2023 23:47:00 02/21/20 23 02/20/2023 LFTS (HEPA TIC PANEL ) direct bilirubin <0.2 mg/dL 0-0.3 Not Available [facility] [address] [place], [address], 02/20/2023 23:47:00 02/21/20 23 02/20/2023 LFTS (HEPA TIC PANEL ) bilirubin (indirect) NOT CALCUL ATED mg/dL 0-1.5 Not Available [facility]) [address] [place], [address], 02/20/2023 23:47:00 02/21/20 23 02/20/2023 LFTS (HEPA TIC PANEL ) AST 12 U/L 0-37 Not Available [facility]) [address] [place], [address], 02/20/2023 23:47:00 02/21/20 23 02/20/2023 LFTS (HEPA TIC PANEL ) ALT 9 U/L 0-40 Not Available [facility]) [address] [place], [address], 02/20/2023 23:47:00 02/21/20 23 02/20/2023 LFTS (HEPA TIC PANEL ) total protein 6.1 g/dL 6.5-8. 0 low Not Available [facility]) [address] [place], [address], 02/20/2023 23:47:00 02/21/20 23 02/20/2023 LFTS (HEPA TIC PANEL ) albumin 3.8 g/dL 3.9-4. 8 low Not Available [facility]) [address] [place], [address], 02/20/2023 23:47:00 02/21/20 23 02/20/2023 LFTS (HEPA TIC PANEL ) globulin 2.3 g/dL 1-4.8 Not Available [facility]) [address] [place], [address], 02/20/2023 23:47:00 02/21/20 23 02/20/2023 LFTS (HEPA TIC PANEL ) A/G ratio 1.65 ratio 1.00-4 .80 Not Available [facility] [address] [place], [address], 02/20/2023 23:47:00 02/21/20 23 02/20/2023 MAGNE SIUM magnesium 2.2 mg/dL 1.6-2. 6 Not Available [facility] [address] [place], [address], 02/20/2023 23:47:01 02/21/20 23 02/20/2023 NT-MI OBNP nt-probnp 1072 pg/mL 0-125 high Not Available [facility] [address] [place], [address], 02/20/2023 23:47:02 02/21/20 23 02/20/2023 TSH WITH REFLE X TSH 1.10 uIU/m L 0.27-4 .20 Not Available [facility] [address] [place], [address], 02/20/2023 23:47:03 02/21/20 23 02/20/2023 COVID BOYD KAMILA RESPI RATOR Y VIRAL ORDER (PRO) test ordered RAPID COVID, FLU HAS BEEN ORDERE D Not Available [facility] [address] [place], [address], 02/20/2023 23:58:32 02/21/20 23 02/20/2023 COVID BOYD KAMILA RESPI RATOR Y VIRAL ORDER (PRO) specimen source/descr iption ALEXIA MONZON AL SWAB Not Available [facility] [address] [place], [address], 02/20/2023 23:58:32 02/21/20 23 02/20/2023 COVID BOYD KAMILA RESPI RATOR Y VIRAL ORDER (PRO) influenza A PCR NOT DETECT ED not detect ed Not Available [facility] [address] [place], [address], 02/20/2023 23:58:32 02/21/20 23 02/20/2023 COVID OBYD KAMILA RESPI RATOR Y VIRAL ORDER (PRO) influenza B PCR NOT DETECT ED not detect ed Not Available [facility] [address] [place], [address], 02/20/2023 23:58:32 02/21/20 23 02/20/2023 COVID BOYD KAMILA RESPI RATOR Y VIRAL ORDER (PRO) sars-cov 2 (covid-19) PCR NOT DETECT ED not detect ed Not Available [facility] [address] [place], [address], 02/20/2023 23:58:32 02/21/20 23 02/21/2023 ABO2F - 2ND TYPE (NEW SAMPL E) ABO/Rh O NEGATI VE Not Available [facility] [address] [place], [address], 02/21/2023 00:22:01 02/21/20 23 02/21/2023 ABO2F - 2ND TYPE (NEW SAMPL E) resulting agency [facility] Not Available [facility] [address] [place], [address], 02/21/2023 00:22:01 02/21/20 23 02/25/2023 TYPE AND SCREE N (ABO, RH,AN TIBOD Y SCREE N) ABO/Rh O NEGATI VE Not Available [facility] ([facility]) [address] [place], [address], 02/25/2023 08:57:03 02/21/20 23 02/25/2023 TYPE AND SCREE N (ABO, RH,AN TIBOD Y SCREE N) antibody screen NEGATI VE Not Available [facility] ([facility] [address] [place], [address], 02/25/2023 08:57:03 02/21/20 23 02/25/2023 TYPE AND SCREE N (ABO, RH,AN TIBOD Y SCREE N) expiration date of sample 2022,2 359 Not Available [facility] ([facility]) [address] [place], [address], 02/25/2023 08:57:03 02/21/2002/25/2023 TYPE AND SCREE N (ABO, RH,AN TIBOD Y SCREE N) RBC - unit number [id number] Not Available [facility] ([facility]) [address] [place] [address], [address], 02/25/2023 08:57:03 02/21/20 23 02/25/2023 TYPE AND SCREE N (ABO, RH,AN TIBOD Y SCREE N) RBC - component type APHER RBC LR C1 Not Available [facility]) [address] [place] [address], [address], 02/25/2023 08:57:03 02/21/20 23 02/25/2023 TYPE AND SCREE N (ABO, RH,AN TIBOD Y SCREE N) RBC - product code [id number] 00 Not Available [facility]) [address] [place] [address], [address], 02/25/2023 08:57:03 02/21/20 23 02/25/2023 TYPE AND SCREE N (ABO, RH,AN TIBOD Y SCREE N) RBC - unit division 00 Not Available [facility]) [address] [place] [address], [address], 02/25/2023 08:57:03 02/21/20 23 02/25/2023 TYPE AND SCREE N (ABO, RH,AN TIBOD Y SCREE N) RBC - product status of unit ISSUED ,FINAL Not Available [facility]) [address] [place] [address], [address], 02/25/2023 08:57:03 02/21/20 23 02/25/2023 TYPE AND SCREE N (ABO, RH,AN TIBOD Y SCREE N) RBC - unit number [id number] Not Available [facility] ([facility]) [address] [place] [address], [address], 02/25/2023 08:57:03 02/21/2002/25/2023 TYPE AND SCREE N (ABO, RH,AN TIBOD Y SCREE N) RBC - component type APHER RBC LR C1 Not Available [facility]) [address] [place] [address], [address], 02/25/2023 08:57:03 02/21/20 23 02/25/2023 TYPE AND SCREE N (ABO, RH,AN TIBOD Y SCREE N) RBC - product code [id number] 00 Not Available [facility]) [address] [place] [address], [address], 02/25/2023 08:57:03 02/21/20 23 02/25/2023 TYPE AND SCREE N (ABO, RH,AN TIBOD Y SCREE N) RBC - unit division 00 Not Available [facility]) [address] [place] [address], [address], 02/25/2023 08:57:03 02/21/20 23 02/25/2023 TYPE AND SCREE N (ABO, RH,AN TIBOD Y SCREE N) RBC - product status of unit ISSUED ,FINAL Not Available [facility] [address] [place], [address], 02/25/2023 08:57:03 02/21/20 23 02/25/2023 TYPE AND SCREE N (ABO, RH,AN TIBOD Y SCREE N) resulting agency [facility] Not Available [facility] [address] [place], [address], 02/25/2023 08:57:03 02/21/20 23 02/21/2023 LAB ADD ON test requested FERRIT IN, IRON STUDIE S, B12, FOLATE , RETICU LOCYTE COUNT, TSH, LDH, HAPTOG LOBIN Not Available [facility] [address] [place], [address], 02/21/2023 00:49:51 02/21/20 23 02/21/2023 LAB ADD ON status Add on order being proce ssed. Floor or provi dee will be notif ied if testi ng canno t be perfo rmed Not Available [facility] ([facility] [address] [place], [address], 02/21/2023 00:49:51 02/21/20 23 02/21/2023 VITAM IN B12 vitamin B12 428 pg/mL 232-12 45 Not Available [facility] ([facility]) [address] [place], [address], 02/21/2023 01:26:22 02/21/20 23 02/21/2023 DELMA TIN ferritin 8 ug/L 30-400 low Not Available [facility] ([facility]) [address] [place], [address], 02/21/2023 01:26:23 02/21/20 23 02/21/2023 LDH LDH 152 U/L 118-27 3 Not Available [facility]) [address] [place] [address], [address], 02/21/2023 01:26:24 02/21/20 23 02/21/2023 IRON AND IRON CLAUDIA NG CAPAC ITY iron 16 ug/dL 45-160 low Not Available [facility] [address] [place], [address], 02/21/2023 01:26:25 02/21/20 23 02/21/2023 IRON AND IRON CLAUDIA NG CAPAC ITY iron binding capacity 438 ug/dL 228-42 8 high Not Available [facility] ([facility]) [address] [place], [address], 02/21/2023 01:26:25 02/21/20 23 02/21/2023 IRON AND IRON CLAUDIA NG CAPAC ITY transferrin saturat. 4 % 20-55 low Not Available [facility] ([facility] [address] [place], [address], 02/21/2023 01:26:25 02/21/20 23 02/21/2023 TSH TSH 1.12 uIU/m L 0.27-4 .20 Not Available [facility] ([facility]) [address] [place] [address], [address], 02/21/2023 01:26:26 02/22/20 23 02/21/2023 POCT GLUCO SE whole blood glucose 104 mg/dL 70-99 high Not Available [facility] ([facility]) [address] [place], [address], 02/21/2023 09:23:59 02/22/20 23 02/21/2023 CBC AND DIFFE RENTI AL WBC 11.53 K/uL 4.00-1 1.00 high Not Available [facility] ([facility]) [address] [place], [address], 02/21/2023 12:50:17 02/22/20 23 02/21/2023 CBC AND DIFFE RENTI AL RBC 3.04 M/uL 3.90-5 .69 low Not Available [facility] ([facility]) [address] [place] [address], [address], 02/21/2023 12:50:17 02/22/20 23 02/21/2023 CBC AND DIFFE RENTI AL HGB 7.7 g/dL 12.4-1 7.3 low Not Available [facility] ([facility]) [address] [place] [address], [address], 02/21/2023 12:50:17 02/22/20 23 02/21/2023 CBC AND DIFFE RENTI AL HCT 25.4 % 37.0-5 1.0 low Not Available [facility] ([facility]) [address] [place] [address], [address], 02/21/2023 12:50:17 02/22/20 23 02/21/2023 CBC AND DIFFE RENTI AL plt 482 K/uL 140-43 0 high Not Available [facility] ([facility]) [address] [place] [address], [address], 02/21/2023 12:50:17 02/22/20 23 02/21/2023 CBC AND DIFFE RENTI AL MCV 83.6 fL 78.0-9 7.0 Not Available [facility] ([facility]) [address] [place] [address], [address], 02/21/2023 12:50:17 02/22/20 23 02/21/2023 CBC AND DIFFE RENTI AL MCH 25.3 pg 25.0-3 3.0 Not Available [facility] ([facility]) [address] [place] [address], [address], 02/21/2023 12:50:17 02/22/20 23 02/21/2023 CBC AND DIFFE RENTI AL MCHC 30.3 g/dL 32.0-3 6.0 low Not Available [facility] ([facility]) [address] [place] [address], [address], 02/21/2023 12:50:17 02/22/20 23 02/21/2023 CBC AND DIFFE RENTI AL RDW 17.2 % 11.0-1 5.0 high Not Available [facility] ([facility]) [address] [place], [address], 02/21/2023 12:50:17 02/22/20 23 02/21/2023 CBC AND DIFFE RENTI AL MPV 9.2 fL 8.4-12 .8 Not Available [facility] ([facility]) [address] [place], [address], 02/21/2023 12:50:17 02/22/20 23 02/21/2023 CBC AND DIFFE RENTI AL diff method AUTO Not Available [facility] ([facility]) [address] [place], [address], 02/21/2023 12:50:17 02/22/20 23 02/21/2023 CBC AND DIFFE RENTI AL neuts 76.1 % 43.0-7 5.0 high Not Available [facility] ([facility]) [address] [place] [address], [address], 02/21/2023 12:50:17 02/22/20 23 02/21/2023 CBC AND DIFFE RENTI AL lymphs 10.2 % 18.2-4 7.4 low Not Available [facility] ([facility]) [address] [place] [address], [address], 02/21/2023 12:50:17 02/22/20 23 02/21/2023 CBC AND DIFFE RENTI AL monos 8.6 % 4.00-1 1.00 Not Available [facility] ([facility]) [address] [place], [address], 02/21/2023 12:50:17 02/22/20 23 02/21/2023 CBC AND DIFFE RENTI AL eos 2.5 % 0.0-8. 0 Not Available [facility] (Out[facility]) [address] [place], [address], 02/21/2023 12:50:17 02/22/20 23 02/21/2023 CBC AND DIFFE RENTI AL basos 1.0 % 0.0-2. 0 Not Available [facility] (Outpatient) [address] [place], [address], 02/21/2023 12:50:17 02/22/20 23 02/21/2023 CBC AND DIFFE RENTI AL granulocytes , immature (%) 1.6 % 0.0-0. 9 high Not Available [facility] (Outpatient) [address] [place], [address], 02/21/2023 12:50:17 02/22/20 23 02/21/2023 CBC AND DIFFE RENTI AL absolute neuts 8.78 K/uL 1.80-7 .70 high Not Available [facility] (Outpatient) [address] [place], [address], 02/21/2023 12:50:17 02/22/20 23 02/21/2023 CBC AND DIFFE RENTI AL absolute lymphs 1.18 K/uL 1.00-3 .10 Not Available [facility] (Outpatient) [address] [place], [address], 02/21/2023 12:50:17 02/22/20 23 02/21/2023 CBC AND DIFFE RENTI AL absolute monos 0.99 K/uL 0.20-0 .80 high Not Available [facility] (Outpatient) [address] [place], [address], 02/21/2023 12:50:17 02/22/20 23 02/21/2023 CBC AND DIFFE RENTI AL absolute eos 0.29 K/uL 0.00-0 .80 Not Available [facility] (Outpatient) [address] [place], [address], 02/21/2023 12:50:17 02/22/20 23 02/21/2023 CBC AND DIFFE RENTI AL absolute basos 0.11 K/uL 0.00-0 .09 high Not Available [facility] (Outpatient) [address] [place], [address], 02/21/2023 12:50:17 02/22/20 23 02/21/2023 CBC AND DIFFE RENTI AL granulocytes , immature 0.18 K/uL 0.00-0 .05 high Not Available [facility] (Outpatient) [address] [place], [address], 02/21/2023 12:50:17 02/22/20 23 02/21/2023 POCT GLUCO SE whole blood glucose 103 mg/dL 70-99 high Not Available [facility] (Outpatient) [address] [place], [address], 02/21/2023 14:03:41 02/22/20 23 02/21/2023 POCT GLUCO SE whole blood glucose 103 mg/dL 70-99 high Not Available [facility] (Outpatient) [address] [place], [address], 02/21/2023 17:10:57 02/22/20 23 02/21/2023 POCT GLUCO SE whole blood glucose 121 mg/dL 70-99 high Not Available [facility] (Outpatient) [address] [place], [address], 02/21/2023 19:31:26 02/22/20 23 02/21/2023 CBC WBC 12.20 K/uL 4.00-1 1.00 high Not Available [facility] (Outpatient) [address] [place], [address], 02/21/2023 20:39:32 02/22/20 23 02/21/2023 CBC RBC 3.09 M/uL 3.90-5 .69 low Not Available [facility] (Outpatient) [address] [place], [address], 02/21/2023 20:39:32 02/22/20 23 02/21/2023 CBC HGB 7.6 g/dL 12.4-1 7.3 low Not Available [facility] (Outpatient) [address] [place], [address], 02/21/2023 20:39:32 02/22/20 23 02/21/2023 CBC HCT 25.9 % 37.0-5 1.0 low Not Available [facility] (Outpatient) [address] [place], [address], 02/21/2023 20:39:32 02/22/20 23 02/21/2023 CBC plt 460 K/uL 140-43 0 high Not Available [facility] (Outpatient) [address] [place] [address], [address], 02/21/2023 20:39:32 02/22/20 23 02/21/2023 CBC MCV 83.8 fL 78.0-9 7.0 Not Available [facility] (Outpatient) [address] [place], [address], 02/21/2023 20:39:32 02/22/20 23 02/21/2023 CBC MCH 24.6 pg 25.0-3 3.0 low Not Available [facility] (Outpatient) [address] [place], [address], 02/21/2023 20:39:32 02/22/20 23 02/21/2023 CBC MCHC 29.3 g/dL 32.0-3 6.0 low Not Available [facility] (Outpatient) [address] [place], [address], 02/21/2023 20:39:32 02/22/20 23 02/21/2023 CBC RDW 17.2 % 11.0-1 5.0 high Not Available [facility] (Outpatient) [address] [place], [address], 02/21/2023 20:39:32 02/22/20 23 02/21/2023 CBC MPV 9.0 fL 8.4-12 .8 Not Available [facility] (Outpatient) [address] [place], [address], 02/21/2023 20:39:32 02/23/20 23 02/22/2023 CBC WBC 11.50 K/uL 4.00-1 1.00 high Not Available [facility] (Out[facility]) [address] [place], [address], 02/22/2023 07:02:29 02/23/20 23 02/22/2023 CBC RBC 3.14 M/uL 3.90-5 .69 low Not Available [facility] (Outpatient) [address] [place], [address], 02/22/2023 07:02:29 02/23/20 23 02/22/2023 CBC HGB 7.9 g/dL 12.4-1 7.3 low Not Available [facility] (Outpatient) [address] [place], [address], 02/22/2023 07:02:29 02/23/20 23 02/22/2023 CBC HCT 26.2 % 37.0-5 1.0 low Not Available [facility] (Outpatient) [address] [place], [address], 02/22/2023 07:02:29 02/23/20 23 02/22/2023 CBC plt 471 K/uL 140-43 0 high Not Available [facility] ([facility]) [address] [place], [address], 02/22/2023 07:02:29 02/23/20 23 02/22/2023 CBC MCV 83.4 fL 78.0-9 7.0 Not Available [facility] (Out[facility]) [address] [place], [address], 02/22/2023 07:02:29 02/23/20 23 02/22/2023 CBC MCH 25.2 pg 25.0-3 3.0 Not Available [facility] (Outpatient) [address] [place], [address], 02/22/2023 07:02:29 02/23/20 23 02/22/2023 CBC MCHC 30.2 g/dL 32.0-3 6.0 low Not Available [facility] (Out[facility]) [address] [place], [address], 02/22/2023 07:02:29 02/23/20 23 02/22/2023 CBC RDW 17.2 % 11.0-1 5.0 high Not Available [facility] (Outpatient) [address] [place], [address], 02/22/2023 07:02:29 02/23/20 23 02/22/2023 CBC MPV 9.4 fL 8.4-12 .8 Not Available [facility] (Out[facility]) [address] [place], [address], 02/22/2023 07:02:29 02/23/20 23 02/22/2023 BASIC METAB OLIC PANEL sodium 139 mmol/ L 133-14 6 Not Available [facility] (Out[facility]) [address] [place], [address], 02/22/2023 07:39:00 02/23/20 23 02/22/2023 BASIC METAB OLIC PANEL chloride 95 mmol/ L 96-108 low Not Available [facility] (Outpatient) [address] [place], [address], 02/22/2023 07:39:00 02/23/20 23 02/22/2023 BASIC METAB OLIC PANEL potassium 4.6 mmol/ L 3.3-5. 1 Not Available [facility] (Out[facility]) [address] [place], [address], 02/22/2023 07:39:00 02/23/20 23 02/22/2023 BASIC METAB OLIC PANEL CO2 37 mmol/ L 21-35 high Not Available [facility] (Out[facility]) [address] [place], [address], 02/22/2023 07:39:00 02/23/20 23 02/22/2023 BASIC METAB OLIC PANEL BUN 10 mg/dL 6-19 Not Available [facility] (Outpatient) [address] [place], [address], 02/22/2023 07:39:00 02/23/20 23 02/22/2023 BASIC METAB OLIC PANEL creatinine 0.90 mg/dL 0.5-1. 5 Not Available [facility] (Out[facility]) [address] [place], [address], 02/22/2023 07:39:00 02/23/20 23 02/22/2023 BASIC METAB OLIC PANEL glucose 94 mg/dL 70-99 Not Available [facility] (Outpatient) [address] [place], [address], 02/22/2023 07:39:00 02/23/20 23 02/22/2023 BASIC METAB OLIC PANEL calcium 8.7 mg/dL 8.4-10 .3 Not Available [facility] (Outpatient) [address] [place], [address], 02/22/2023 07:39:00 02/23/20 23 02/22/2023 BASIC METAB OLIC PANEL eGFR 98 mL/mi n/1.7 3m2 >59 Estim ated glome rular filtr ation rate calcu lated using the CKD-E PI refit equat ion. Not Available [facility] (Outpatient) [address] [place], [address], 02/22/2023 07:39:00 02/23/20 23 02/22/2023 BASIC METAB OLIC PANEL anion gap 12 mmol/ L 10-20 Not Available [facility] (Out[facility]) [address] [place], [address], 02/22/2023 07:39:00 02/23/20 23 02/22/2023 MAGNE SIUM magnesium 2.1 mg/dL 1.6-2. 6 Not Available [facility] (Out[facility]) [address] [place], [address], 02/22/2023 07:39:02 02/23/20 23 02/22/2023 PHOSP HORUS phosphorus 4.3 mg/dL 2.7-4. 5 Not Available [facility] (Out[facility]) [address] [place], [address], 02/22/2023 07:39:03 02/23/20 23 02/22/2023 POCT GLUCO SE whole blood glucose 90 mg/dL 70-99 Not Available [facility] (Outpatient) [address] [place], [address], 02/22/2023 07:39:30 02/23/20 23 02/22/2023 POCT GLUCO SE whole blood glucose 110 mg/dL 70-99 high Not Available [facility] (Outpatient) [address] [place], [address], 02/22/2023 12:00:52 02/23/20 23 02/25/2023 ANATO KAMILA PATHO LOGY path report [facility] [address] [place] [address] Lab Direc tor: Letty juares MD Surgi [...] To: Mario lebron MD, AB Marlene Harden [employer] Not Available [facility] (Outpatient) [address] [place] [address], [address], 02/25/2023 15:20:31 02/29/20 23 02/28/2023 RBC MORPH OLOGY polychrom Slight Not Available [address], [address], 02/28/2023 11:02:49 02/29/20 23 02/28/2023 RBC MORPH OLOGY hypochrom 2+ Not Available [address], [address], 02/28/2023 11:02:49 02/29/20 23 02/28/2023 RBC MORPH OLOGY aniso 2+ Not Available [address], [address], 02/28/2023 11:02:49 02/29/20 23 02/28/2023 RBC MORPH OLOGY baso stip Slight Not Available [address], [address], 02/28/2023 11:02:49 02/29/20 23 02/28/2023 CBC WBC 9.95 K/ L 4.23-9 .07 high Not Available [address], [address], 02/28/2023 11:03:00 02/29/20 23 02/28/2023 CBC RBC 3.49 M/ L 4.63-6 .08 low Not Available [address], [address], 02/28/2023 11:03:00 02/29/20 23 02/28/2023 CBC HGB 8.2 g/dL 13.7-1 7.5 low Not Available [address], [address], 02/28/2023 11:03:00 02/29/20 23 02/28/2023 CBC HCT 29.0 % 40.1-5 1.0 low Not Available [address], [address], 02/28/2023 11:03:00 02/29/20 23 02/28/2023 CBC MCV 83.1 fL 79.0-9 2.2 Not Available [address], [address], 02/28/2023 11:03:00 02/29/20 23 02/28/2023 CBC MCH 23.5 pg 25.7-3 2.2 low Not Available [address], [address], 02/28/2023 11:03:00 02/29/20 23 02/28/2023 CBC MCHC 28.3 g/dL 32.3-3 6.5 low SREV= Slide revie wed [facility]. Not Available [address], [address], 02/28/2023 11:03:00 02/29/20 23 02/28/2023 CBC plt 558 K/ L 163-33 7 high Not Available [address], [address], 02/28/2023 11:03:00 02/29/20 23 02/28/2023 CBC MPV 10.2 fL 9.4-12 .4 Not Available [address], [address], 02/28/2023 11:03:00 02/29/20 23 02/28/2023 CBC neut% 65.3 % 34.0-6 7.9 Not Available [address], [address], 02/28/2023 11:03:00 02/29/20 23 02/28/2023 CBC neut# 6.49 1.78-5 .38 high Not Available [address], [address], 02/28/2023 11:03:00 02/29/2002/28/2023 CBC lymph % 19.9 % 21.8-5 3.1 low Not Available [address], [address], 02/28/2023 11:03:00 02/29/20 23 02/28/2023 CBC lymph # 1.98 K/ L 1.32-3 .57 Not Available [address], [address], 02/28/2023 11:03:00 02/29/20 23 02/28/2023 CBC mono% 9.5 % 5.3-12 .2 Not Available [address], [address], 02/28/2023 11:03:00 02/29/20 23 02/28/2023 CBC mono# 0.95 0.30-0 .82 high Not Available [address], [address], 02/28/2023 11:03:00 02/29/20 23 02/28/2023 CBC eo% 2.6 % 0.8-7. 0 Not Available [address], [address], 02/28/2023 11:03:00 02/29/20 23 02/28/2023 CBC eo# 0.26 0.04-0 .54 Not Available [address], [address], 02/28/2023 11:03:00 02/29/20 23 02/28/2023 CBC baso% 1.6 % 0.2-1. 2 high Not Available [address], [address], 02/28/2023 11:03:00 02/29/20 23 02/28/2023 CBC baso# 0.16 0.00-0 .08 high Not Available [address], [address], 02/28/2023 11:03:00 02/29/20 23 02/28/2023 CBC RDW-CV 17.8 % 11.6-1 4.4 high Not Available [address], [address], 02/28/2023 11:03:00 02/29/20 23 02/28/2023 CBC Ig% 1.100 % 0.000- 1.500 Ig % >0.5 Indic ates possi ble Left Shift Not Available [address], [address], 02/28/2023 11:03:00 02/29/20 23 02/28/2023 CBC Ig# 0.110 0.000- 0.093 high Not Available [address], [address], 02/28/2023 11:03:00 02/29/2002/28/2023 CBC NRBC% 0.0 % 0.0-0. 2 Not Available [address], [address], 02/28/2023 11:03:00 02/29/20 23 02/28/2023 CBC NRBC# 0.000 0.000- 0.012 Not Available [address], [address], 02/28/2023 11:03:00 02/29/20 23 02/28/2023 COMP. METAB OLIC PANEL glucose 109 mg/dL 70-100 high Not Available [address], [address], 02/28/2023 14:17:35 02/29/20 23 02/28/2023 COMP. METAB OLIC PANEL BUN 23 mg/dL 7-18 high Not Available [address], [address], 02/28/2023 14:17:35 02/29/20 23 02/28/2023 COMP. METAB OLIC PANEL creatinine 1.1 mg/dL 0.8-1. 3 Not Available [address], [address], 02/28/2023 14:17:35 02/29/20 23 02/28/2023 COMP. METAB OLIC PANEL B/C 20.9 ratio Not Available [address], [address], 02/28/2023 14:17:35 02/29/20 23 02/28/2023 COMP. METAB [...] be used in pregn ollie. Not Available [address], [address], 02/28/2023 14:17:35 02/29/20 23 02/28/2023 COMP. METAB OLIC PANEL sodium 140 mmol/ L 136-14 5 Not Available [address], [address], 02/28/2023 14:17:35 02/29/20 23 02/28/2023 COMP. METAB OLIC PANEL potassium 5.5 mmol/ L 3.5-5. 1 high CWP=C onsis tent with previ ous. Not Available [address], [address], 02/28/2023 14:17:35 02/29/20 23 02/28/2023 COMP. METAB OLIC PANEL chloride 97 mmol/ L 96-107 Not Available [address], [address], 02/28/2023 14:17:35 02/29/20 23 02/28/2023 COMP. METAB OLIC PANEL anion gap 6.0 5.0-15 .0 Not Available [address], [address], 02/28/2023 14:17:35 02/29/20 23 02/28/2023 COMP. METAB OLIC PANEL CO2 37 mmol/ L 21-32 high Not Available [address], [address], 02/28/2023 14:17:35 02/29/20 23 02/28/2023 COMP. METAB OLIC PANEL calcium 9.1 mg/dL 8.5-10 .3 Not Available [address], [address], 02/28/2023 14:17:35 02/29/20 23 02/28/2023 COMP. METAB OLIC PANEL total protein 6.7 g/dL 6.4-8. 2 Not Available [address], [address], 02/28/2023 14:17:35 02/29/20 23 02/28/2023 COMP. METAB OLIC PANEL albumin 3.5 g/dL 3.4-5. 0 Not Available [address], [address], 02/28/2023 14:17:35 02/29/20 23 02/28/2023 COMP. METAB OLIC PANEL globulin 3.2 g/dL Not Available [address], [address], 02/28/2023 14:17:35 02/29/20 23 02/28/2023 COMP. METAB OLIC PANEL A/G 1.1 ratio 0.8-2. 0 Not Available [address], [address], 02/28/2023 14:17:35 02/29/20 23 02/28/2023 COMP. METAB OLIC PANEL total bilirubin 0.20 mg/dL 0.00-1 .00 Not Available [address], [address], 02/28/2023 14:17:35 02/29/20 23 02/28/2023 COMP. METAB OLIC PANEL AST 15 U/L 0-37 Not Available [address], [address], 02/28/2023 14:17:35 02/29/20 23 02/28/2023 COMP. METAB OLIC PANEL ALT 26 U/L 6-63 Not Available [address], [address], 02/28/2023 14:17:35 02/29/20 23 02/28/2023 COMP. METAB OLIC PANEL alk. phos. 88 U/L 50-136 Not Available [address], [address], 02/28/2023 14:17:35 02/29/20 23 02/28/2023 LIPID PANEL cholesterol 147 mg/dL <200 mg/dl Aliyah able 200-2 39 mg/dl Borde rline High >240 mg/dl High Not Available [address], [address], 02/28/2023 14:17:37 02/29/20 23 02/28/2023 LIPID PANEL triglyceride s 78 mg/dL <150 mg/dL Remedios l 150-1 99 mg/dL Borde rline High 200-4 99 mg/dL High >500 mg/dL Very High Not Available [address], [address], 02/28/2023 14:17:37 02/29/20 23 02/28/2023 LIPID PANEL direct HDL 61 mg/dL <40 mg/dl - Major Risk for CHD >60 mg/dl - Negat jax Risk for CHD Not Available [address], [address], 02/28/2023 14:17:37 02/29/2002/28/2023 DIREC T LDL direct [...] r is not neces keven. Not Available [address], [address], 02/28/2023 14:17:38 03/03/20 23 03/03/2023 URINA LYSIS W/REF GURJIT URINE CULTU RE color Yellow yellow Not Available [facility] (Out[facility]) [address] [place], [address], 03/03/2023 22:57:54 03/03/20 23 03/03/2023 URINA LYSIS W/REF GURJIT URINE CULTU RE clarity Clear Not Available [facility] (Outpatient) [address] [place], [address], 03/03/2023 22:57:54 03/03/20 23 03/03/2023 URINA LYSIS W/REF GURJIT URINE CULTU RE glucose Negati ve negati ve Not Available [facility] (Outpatient) [address] [place], [address], 03/03/2023 22:57:54 03/03/20 23 03/03/2023 URINA LYSIS W/REF GURJIT URINE CULTU RE bili Negati ve negati ve Not Available [facility] (Outpatient) [address] [place], [address], 03/03/2023 22:57:54 03/03/20 23 03/03/2023 URINA LYSIS W/REF GURJIT URINE CULTU RE ketones Negati ve negati ve Not Available [facility] (Outpatient) [address] [place], [address], 03/03/2023 22:57:54 03/03/20 23 03/03/2023 URINA LYSIS W/REF GURJIT URINE CULTU RE specific gravity 1.010 1.005- 1.030 Not Available [facility] (Out[facility]) [address] [place], [address], 03/03/2023 22:57:54 03/03/20 23 03/03/2023 URINA LYSIS W/REF GURJIT URINE CULTU RE blood Negati ve negati ve Not Available [facility] (Outpatient) [address] [place], [address], 03/03/2023 22:57:54 03/03/20 23 03/03/2023 URINA LYSIS W/REF GURJIT URINE CULTU RE pH 6.0 5.0-8. 0 Not Available [facility] ([facility]) [address] [place], [address], 03/03/2023 22:57:54 03/03/20 23 03/03/2023 URINA LYSIS W/REF GURJIT URINE CULTU RE protein Negati ve negati ve Not Available [facility] (Out[facility]) [address] [place], [address], 03/03/2023 22:57:54 03/03/20 23 03/03/2023 URINA LYSIS W/REF GURJIT URINE CULTU RE nitrite Negati ve negati ve Not Available [facility] (Out[facility]) [address] [place], [address], 03/03/2023 22:57:54 03/03/20 23 03/03/2023 URINA LYSIS W/REF GURJIT URINE CULTU RE leukocyte esterase, ur Negati ve negati ve Not Available [facility] (Out[facility]) [address] [place], [address], 03/03/2023 22:57:54 03/03/20 23 03/03/2023 URINA LYSIS W/REF GURJIT URINE CULTU RE WBC NONE SEEN /hpf none seen Not Available [facility] (Out[facility]) [address] [place], [address], 03/03/2023 22:57:54 03/03/20 23 03/03/2023 URINA LYSIS W/REF GURJIT URINE CULTU RE RBC NONE SEEN /hpf none seen Not Available [facility] (Outpatient) [address] [place], [address], 03/03/2023 22:57:54 03/03/20 23 03/03/2023 URINA LYSIS W/REF GURJIT URINE CULTU RE urine epithelial NONE SEEN none seen Not Available [facility] (Outpatient) [address] [place], [address], 03/03/2023 22:57:54 03/03/20 23 03/03/2023 URINA LYSIS W/REF GURJIT URINE CULTU RE mucus NONE SEEN /hpf none seen Not Available [facility] (Out[facility]) [address] [place], [address], 03/03/2023 22:57:54 03/03/20 23 03/03/2023 URINA LYSIS W/REF GURJIT URINE CULTU RE bacteria NONE SEEN /hpf none seen Not Available [facility] (Out[facility]) [address] [place], [address], 03/03/2023 22:57:54 03/03/20 23 03/03/2023 CBC AND DIFFE RENTI AL WBC 12.32 K/uL 4.00-1 1.00 high Not Available [facility] (Outpatient) [address] [place], [address], 03/03/2023 16:28:07 03/03/20 23 03/03/2023 CBC AND DIFFE RENTI AL RBC 4.14 M/uL 3.90-5 .69 Not Available [facility] (Outpatient) [address] [place], [address], 03/03/2023 16:28:07 03/03/20 23 03/03/2023 CBC AND DIFFE RENTI AL HGB 9.8 g/dL 12.4-1 7.3 low Not Available [facility] (Outpatient) [address] [place], [address], 03/03/2023 16:28:07 03/03/20 23 03/03/2023 CBC AND DIFFE RENTI AL HCT 32.9 % 37.0-5 1.0 low Not Available [facility] (Out[facility]) [address] [place], [address], 03/03/2023 16:28:07 03/03/20 23 03/03/2023 CBC AND DIFFE RENTI AL plt 614 K/uL 140-43 0 high Not Available [facility] (Outpatient) [address] [place], [address], 03/03/2023 16:28:07 03/03/20 23 03/03/2023 CBC AND DIFFE RENTI AL MCV 79.5 fL 78.0-9 7.0 Not Available [facility] (Out[facility]) [address] [place], [address], 03/03/2023 16:28:07 03/03/20 23 03/03/2023 CBC AND DIFFE RENTI AL MCH 23.7 pg 25.0-3 3.0 low Not Available [facility] (Outpatient) [address] [place] [address], [address], 03/03/2023 16:28:07 03/03/20 23 03/03/2023 CBC AND DIFFE RENTI AL MCHC 29.8 g/dL 32.0-3 6.0 low Not Available [facility] (Outpatient) [address] [place] [address], [address], 03/03/2023 16:28:07 03/03/20 23 03/03/2023 CBC AND DIFFE RENTI AL RDW 17.4 % 11.0-1 5.0 high Not Available [facility] (Out[facility]) [address] [place], [address], 03/03/2023 16:28:07 03/03/20 23 03/03/2023 CBC AND DIFFE RENTI AL MPV 9.6 fL 8.4-12 .8 Not Available [facility] (Out[facility]) [address] [place], [address], 03/03/2023 16:28:07 03/03/20 23 03/03/2023 CBC AND DIFFE RENTI AL diff method Auto Not Available [facility] (Out[facility]) [address] [place], [address], 03/03/2023 16:28:07 03/03/20 23 03/03/2023 CBC AND DIFFE RENTI AL neuts 72.9 % 43.0-7 5.0 Not Available [facility] (Outpatient) [address] [place], [address], 03/03/2023 16:28:07 03/03/20 23 03/03/2023 CBC AND DIFFE RENTI AL lymphs 14.2 % 18.2-4 7.4 low Not Available [facility] (Out[facility]) [address] [place], [address], 03/03/2023 16:28:07 03/03/20 23 03/03/2023 CBC AND DIFFE RENTI AL monos 8.8 % 4.00-1 1.00 Not Available [facility] (Out[facility]) [address] [place], [address], 03/03/2023 16:28:07 03/03/20 23 03/03/2023 CBC AND DIFFE RENTI AL eos 1.9 % 0.0-8. 0 Not Available [facility] (Outpatient) [address] [place], [address], 03/03/2023 16:28:07 03/03/20 23 03/03/2023 CBC AND DIFFE RENTI AL basos 1.1 % 0.0-2. 0 Not Available [facility] (Outpatient) [address] [place], [address], 03/03/2023 16:28:07 03/03/20 23 03/03/2023 CBC AND DIFFE RENTI AL granulocytes , immature (%) 1.1 % 0.0-0. 9 high Not Available [facility] (Outpatient) [address] [place], [id number], 03/03/2023 16:28:07 03/03/20 23 03/03/2023 CBC AND DIFFE RENTI AL absolute neuts 8.98 K/uL 1.80-7 .70 high Not Available [facility] (Outpatient) [address] [place], [id number], 03/03/2023 16:28:07 03/03/20 23 03/03/2023 CBC AND DIFFE RENTI AL absolute lymphs 1.75 K/uL 1.00-3 .10 Not Available [facility] (Outpatient) [address] [place], [id number], 03/03/2023 16:28:07 03/03/20 23 03/03/2023 CBC AND DIFFE RENTI AL absolute monos 1.08 K/uL 0.20-0 .80 high Not Available [facility] (Outpatient) [address] [place], [id number], 03/03/2023 16:28:07 03/03/20 23 03/03/2023 CBC AND DIFFE RENTI AL absolute eos 0.24 K/uL 0.00-0 .80 Not Available [facility] (Outpatient) [address] [place], [id number], 03/03/2023 16:28:07 03/03/20 23 03/03/2023 CBC AND DIFFE RENTI AL absolute basos 0.14 K/uL 0.00-0 .09 high Not Available [facility] (Outpatient) [address] [place], [id number], 03/03/2023 16:28:07 03/03/20 23 03/03/2023 CBC AND DIFFE RENTI AL granulocytes , immature 0.13 K/uL 0.00-0 .05 high Not Available [facility] (Outpatient) [address] [place], [id number], 03/03/2023 16:28:07 03/03/20 23 03/03/2023 BASIC METAB OLIC PANEL sodium 135 mmol/ L 133-14 6 Not Available [facility] (Outpatient) [address] [place], [id number], 03/03/2023 16:50:56 03/03/20 23 03/03/2023 BASIC METAB OLIC PANEL chloride 89 mmol/ L 96-108 low Not Available [facility] (Outpatient) [address] [place], [address], 03/03/2023 16:50:56 03/03/20 23 03/03/2023 BASIC METAB OLIC PANEL potassium 3.8 mmol/ L 3.3-5. 1 Not Available [facility] (Outpatient) [address] [place], [address], 03/03/2023 16:50:56 03/03/20 23 03/03/2023 BASIC METAB OLIC PANEL CO2 31 mmol/ L 21-35 Not Available [facility] (Outpatient) [address] [place], [address], 03/03/2023 16:50:56 03/03/20 23 03/03/2023 BASIC METAB OLIC PANEL BUN 26 mg/dL 6-19 high Not Available [facility] (Outpatient) [address] [place], [address], 03/03/2023 16:50:56 03/03/20 23 03/03/2023 BASIC METAB OLIC PANEL creatinine 1.80 mg/dL 0.5-1. 5 high Not Available [facility] (Outpatient) [address] [place], [address], 03/03/2023 16:50:56 03/03/20 23 03/03/2023 BASIC METAB OLIC PANEL glucose 123 mg/dL 70-99 high Not Available [facility] (Outpatient) [address] [place], [address], 03/03/2023 16:50:56 03/03/20 23 03/03/2023 BASIC METAB OLIC PANEL calcium 9.4 mg/dL 8.4-10 .3 Not Available [facility] (Outpatient) [address] [place], [address], 03/03/2023 16:50:56 03/03/20 23 03/03/2023 BASIC METAB OLIC PANEL eGFR 43 mL/mi n/1.7 3m2 >59 low Estim ated glome rular filtr ation rate calcu lated using the CKD-E PI refit equat ion. Not Available [facility] (Outpatient) [address] [place], [address], 03/03/2023 16:50:56 03/03/20 23 03/03/2023 BASIC METAB OLIC PANEL anion gap 19 mmol/ L 10-20 Not Available [facility] (Outpatient) [address] [place], [address], 03/03/2023 16:50:56 03/03/20 23 03/03/2023 LIPAS E lipase 116 U/L 16-63 high Not Available [facility] (Outpatient) [address] [place], [address], 03/03/2023 16:50:57 03/03/20 23 03/03/2023 LFTS (HEPA TIC PANEL ) alkaline phosphatase 97 U/L 39-117 Not Available [facility] (Outpatient) [address] [place], [address], 03/03/2023 16:50:58 03/03/20 23 03/03/2023 LFTS (HEPA TIC PANEL ) total bilirubin <0.2 mg/dL 0.0-1. 2 Not Available [facility] (Outpatient) [address] [place], [address], 03/03/2023 16:50:58 03/03/20 23 03/03/2023 LFTS (HEPA TIC PANEL ) direct bilirubin <0.2 mg/dL 0-0.3 Not Available [facility] (Outpatient) [address] [place], [address], 03/03/2023 16:50:58 03/03/20 23 03/03/2023 LFTS (HEPA TIC PANEL ) bilirubin (indirect) NOT CALCUL ATED mg/dL 0-1.5 Not Available [facility] (Outpatient) [address] [place], [address], 03/03/2023 16:50:58 03/03/20 23 03/03/2023 LFTS (HEPA TIC PANEL ) AST 22 U/L 0-37 Not Available [facility] (Outpatient) [address] [place], [address], 03/03/2023 16:50:58 03/03/20 23 03/03/2023 LFTS (HEPA TIC PANEL ) ALT 18 U/L 0-40 Not Available [facility] (Outpatient) [address] [place], [address], 03/03/2023 16:50:58 03/03/20 23 03/03/2023 LFTS (HEPA TIC PANEL ) total protein 7.4 g/dL 6.5-8. 0 Not Available [facility] (Outpatient) [address] [place], [address], 03/03/2023 16:50:58 03/03/20 23 03/03/2023 LFTS (HEPA TIC PANEL ) albumin 4.6 g/dL 3.9-4. 8 Not Available [facility] (Outpatient) [address] [place], [address], 03/03/2023 16:50:58 03/03/20 23 03/03/2023 LFTS (HEPA TIC PANEL ) globulin 2.8 g/dL 1-4.8 Not Available [facility] (Outpatient) [address] [place], [address], 03/03/2023 16:50:58 03/03/20 23 03/03/2023 LFTS (HEPA TIC PANEL ) A/G ratio 1.64 ratio 1.00-4 .80 Not Available [facility] (Outpatient) [address] [place], [address], 03/03/2023 16:50:58 03/03/20 23 03/03/2023 MAGNE SIUM magnesium 2.2 mg/dL 1.6-2. 6 Not Available [facility] (Outpatient) [address] [place], [address], 03/03/2023 16:50:59 03/03/20 23 03/03/2023 TYPE AND SCREE N (ABO, RH,AN TIBOD Y SCREE N) ABO/Rh O Positi ve Not Available [facility] (Outpatient) [address] [place] [address], [address], 03/03/2023 17:32:41 03/03/20 23 03/03/2023 TYPE AND SCREE N (ABO, RH,AN TIBOD Y SCREE N) antibody screen Negati ve Not Available [facility] (Outpatient) [address] [place] [address], [id number], 03/03/2023 17:32:41 03/03/20 23 03/03/2023 TYPE AND SCREE N (ABO, RH,AN TIBOD Y SCREE N) expiration date of sample 2022,2 359 Not Available [facility] (Outpatient) [address] [place], [address], 03/03/2023 17:32:41 03/03/20 23 03/03/2023 TYPE AND SCREE N (ABO, RH,AN TIBOD Y SCREE N) type and screen - comment Patien t is O neg but receiv ed 2 O pos units on 3 Not Available [facility] (Outpatient) [address] [place] [address], [address], 03/03/2023 17:32:41 03/03/20 23 03/03/2023 TYPE AND SCREE N (ABO, RH,AN TIBOD Y SCREE N) resulting agency [facility] Not Available [facility] (Outpatient) [address] [place], [address], 03/03/2023 17:32:41 03/03/20 23 03/03/2023 CREAT ININE , RANDO M URINE urine creatinine 90 mg/dL Not Available [facility] (Outpatient) [address] [place], [address], 03/03/2023 21:06:17 03/03/20 23 03/03/2023 SODIU M, RANDO M URINE urine sodium 47 mmol/ L Not Available [facility] (Outpatient) [address] [place], [address], 03/03/2023 21:06:18 03/03/20 23 03/04/2023 EOSIN OPHIL S, SPUTU M neutrophils (manual) None Not Available [facility] (Outpatient) [address] [place], [address], 03/04/2023 10:12:22 03/03/20 23 03/04/2023 EOSIN OPHIL S, SPUTU M smear for eos None none Not Available [facility] (Outpatient) [address] [place], [address], 03/04/2023 10:12:22 03/03/20 23 03/04/2023 EOSIN OPHIL S, SPUTU M specimen source/descr iption RANDOM URINE Not Available [facility] (Outpatient) [address] [place] [address], [id number], 03/04/2023 10:12:22 03/04/20 23 03/04/2023 PT-IN R PT 12.6 sec 10.2-1 2.9 Not Available [facility] (Outpatient) [address] [place], [address], 03/04/2023 06:02:47 03/04/2003/04/2023 PT-IN R INR 1.1 0.9-1. 1 Thera peuti c range for oral Vitam in K antag onist s: 2.0-3 .5 Not Available [facility] (Outpatient) [address] [place], [address], 03/04/2023 06:02:47 03/04/20 23 03/04/2023 CBC AND DIFFE RENTI AL WBC 10.47 K/uL 4.00-1 1.00 Not Available [facility] (Outpatient) [address] [place], [address], 03/04/2023 06:17:01 03/04/20 23 03/04/2023 CBC AND DIFFE RENTI AL RBC 3.33 M/uL 3.90-5 .69 low Not Available [facility] (Outpatient) [address] [place], [address], 03/04/2023 06:17:01 03/04/20 23 03/04/2023 CBC AND DIFFE RENTI AL HGB 7.7 g/dL 12.4-1 7.3 low Not Available [facility] (Outpatient) [address] [place] [address], [id number], 03/04/2023 06:17:01 03/04/20 23 03/04/2023 CBC AND DIFFE RENTI AL HCT 26.8 % 37.0-5 1.0 low Not Available [facility] (Outpatient) [address] [place] [address], [address], 03/04/2023 06:17:01 03/04/20 23 03/04/2023 CBC AND DIFFE RENTI AL plt 465 K/uL 140-43 0 high Not Available [facility] (Outpatient) [address] [place] [address], [address], 03/04/2023 06:17:01 03/04/20 23 03/04/2023 CBC AND DIFFE RENTI AL MCV 80.5 fL 78.0-9 7.0 Not Available [facility] (Outpatient) [address] [place], [address], 03/04/2023 06:17:01 03/04/20 23 03/04/2023 CBC AND DIFFE RENTI AL MCH 23.1 pg 25.0-3 3.0 low Not Available [facility] (Outpatient) [address] [place], [address], 03/04/2023 06:17:01 03/04/20 23 03/04/2023 CBC AND DIFFE RENTI AL MCHC 28.7 g/dL 32.0-3 6.0 low Not Available [facility] (Outpatient) [address] [place] [address], [id number], 03/04/2023 06:17:01 03/04/20 23 03/04/2023 CBC AND DIFFE RENTI AL RDW 17.6 % 11.0-1 5.0 high Not Available [facility] (Outpatient) [address] [place] [address], [address], 03/04/2023 06:17:01 03/04/2003/04/2023 CBC AND DIFFE RENTI AL MPV 9.6 fL 8.4-12 .8 Not Available [facility] (Outpatient) [address] [place], [address], 03/04/2023 06:17:01 03/04/2003/04/2023 CBC AND DIFFE RENTI AL diff method Auto Not Available [facility] (Outpatient) [address] [place], [address], 03/04/2023 06:17:01 03/04/20 23 03/04/2023 CBC AND DIFFE RENTI AL neuts 61.4 % 43.0-7 5.0 Not Available [facility] (Outpatient) [address] [place], [address], 03/04/2023 06:17:01 03/04/20 23 03/04/2023 CBC AND DIFFE RENTI AL lymphs 21.5 % 18.2-4 7.4 Not Available [facility] (Outpatient) [address] [place], [address], 03/04/2023 06:17:01 03/04/20 23 03/04/2023 CBC AND DIFFE RENTI AL monos 11.3 % 4.00-1 1.00 high Not Available [facility] (Outpatient) [address] [place] [address], [address], 03/04/2023 06:17:01 03/04/2003/04/2023 CBC AND DIFFE RENTI AL eos 3.5 % 0.0-8. 0 Not Available [facility] (Outpatient) [address] [place], [address], 03/04/2023 06:17:01 03/04/2003/04/2023 CBC AND DIFFE RENTI AL basos 1.2 % 0.0-2. 0 Not Available [facility] (Outpatient) [address] [place] [address], [address], 03/04/2023 06:17:01 03/04/2003/04/2023 CBC AND DIFFE RENTI AL granulocytes , immature (%) 1.1 % 0.0-0. 9 high Not Available [facility] (Outpatient) [address] [place] [address], [address], 03/04/2023 06:17:01 03/04/2003/04/2023 CBC AND DIFFE RENTI AL absolute neuts 6.43 K/uL 1.80-7 .70 Not Available [facility] (Outpatient) [address] [place] [address], [address], 03/04/2023 06:17:01 03/04/20 23 03/04/2023 CBC AND DIFFE RENTI AL absolute lymphs 2.25 K/uL 1.00-3 .10 Not Available [facility] (Outpatient) [address] [place], [address], 03/04/2023 06:17:01 03/04/20 23 03/04/2023 CBC AND DIFFE RENTI AL absolute monos 1.18 K/uL 0.20-0 .80 high Not Available [facility] (Outpatient) [address] [place], [address], 03/04/2023 06:17:01 03/04/20 23 03/04/2023 CBC AND DIFFE RENTI AL absolute eos 0.37 K/uL 0.00-0 .80 Not Available [facility] (Outpatient) [address] [place], [address], 03/04/2023 06:17:01 03/04/20 23 03/04/2023 CBC AND DIFFE RENTI AL absolute basos 0.13 K/uL 0.00-0 .09 high Not Available [facility] (Outpatient) [address] [place], [address], 03/04/2023 06:17:01 03/04/20 23 03/04/2023 CBC AND DIFFE RENTI AL granulocytes , immature 0.11 K/uL 0.00-0 .05 high Not Available [facility] (Outpatient) [address] [place], [address], 03/04/2023 06:17:01 03/04/20 23 03/04/2023 BASIC METAB OLIC PANEL sodium 138 mmol/ L 133-14 6 Not Available [facility] (Outpatient) [address] [place], [address], 03/04/2023 06:17:52 03/04/20 23 03/04/2023 BASIC METAB OLIC PANEL chloride 98 mmol/ L 96-108 Not Available [facility] (Outpatient) [address] [place], [address], 03/04/2023 06:17:52 03/04/20 23 03/04/2023 BASIC METAB OLIC PANEL potassium 4.7 mmol/ L 3.3-5. 1 Not Available [facility] (Outpatient) [address] [place], [address], 03/04/2023 06:17:52 03/04/20 23 03/04/2023 BASIC METAB OLIC PANEL CO2 36 mmol/ L 21-35 high Not Available [facility] (Outpatient) [address] [place], [address], 03/04/2023 06:17:52 03/04/20 23 03/04/2023 BASIC METAB OLIC PANEL BUN 27 mg/dL 6-19 high Not Available [facility] (Outpatient) [address] [place], [address], 03/04/2023 06:17:52 03/04/20 23 03/04/2023 BASIC METAB OLIC PANEL creatinine 1.30 mg/dL 0.5-1. 5 Not Available [facility] (Outpatient) [address] [place], [address], 03/04/2023 06:17:52 03/04/20 23 03/04/2023 BASIC METAB OLIC PANEL glucose 109 mg/dL 70-99 high Not Available [facility] (Outpatient) [address] [place], [address], 03/04/2023 06:17:52 03/04/20 23 03/04/2023 BASIC METAB OLIC PANEL calcium 8.8 mg/dL 8.4-10 .3 Not Available [facility] (Outpatient) [address] [place], [address], 03/04/2023 06:17:52 03/04/20 23 03/04/2023 BASIC METAB OLIC PANEL eGFR 63 mL/mi n/1.7 3m2 >59 Estim ated glome rular filtr ation rate calcu lated using the CKD-E PI refit equat ion. Not Available [facility] (Outpatient) [address] [place], [address], 03/04/2023 06:17:52 03/04/20 23 03/04/2023 BASIC METAB OLIC PANEL anion gap 9 mmol/ L 10-20 low Not Available [facility] (Outpatient) [address] [place], [address], 03/04/2023 06:17:52 03/04/20 23 03/04/2023 MAGNE SIUM magnesium 2.3 mg/dL 1.6-2. 6 Not Available [facility] (Outpatient) [address] [place], [address], 03/04/2023 06:17:53 03/04/20 23 03/04/2023 PHOSP HORUS phosphorus 4.4 mg/dL 2.7-4. 5 Not Available [facility] (Outpatient) [address] [place], [address], 03/04/2023 06:17:54 03/04/20 23 03/04/2023 IRON iron 15 ug/dL 45-160 low Not Available [facility] (Outpatient) [address] [place], [address], 03/04/2023 15:24:10 03/04/20 23 03/05/2023 SERUM PROTE IN ELECT ROPHO RESIS W/O IMMUN OGLOB ULINS AND IMMUN OFIXA TION total protein 5.9 g/dL 6.3-7. 9 low Not Available [facility] (Outpatient) [address] [place], [address], 03/05/2023 14:52:35 03/04/20 23 03/05/2023 SERUM PROTE IN ELECT ROPHO RESIS W/O IMMUN OGLOB ULINS AND IMMUN OFIXA TION albumin 2.8 g/dL 3.4-4. 7 low Not Available [facility] (Outpatient) [address] [place], [address], 03/05/2023 14:52:35 03/04/20 23 03/05/2023 SERUM PROTE IN ELECT ROPHO RESIS W/O IMMUN OGLOB ULINS AND IMMUN OFIXA TION alpha-1 globulin 0.3 g/dL 0.1-0. 3 Not Available [facility] (Outpatient) [address] [place], [address], 03/05/2023 14:52:35 03/04/20 23 03/05/2023 SERUM PROTE IN ELECT ROPHO RESIS W/O IMMUN OGLOB ULINS AND IMMUN OFIXA TION alpha-2 globulin 1.1 g/dL 0.6-1. 0 high Not Available [facility] (Outpatient) [address] [place], [address], 03/05/2023 14:52:35 03/04/20 23 03/05/2023 SERUM PROTE IN ELECT ROPHO RESIS W/O IMMUN OGLOB ULINS AND IMMUN OFIXA TION beta-globuli n 1.0 g/dL 0.7-1. 2 Not Available [facility] (Outpatient) [address] [place], [address], 03/05/2023 14:52:35 03/04/20 23 03/05/2023 SERUM PROTE IN ELECT ROPHO RESIS W/O IMMUN OGLOB ULINS AND IMMUN OFIXA TION gamma-globul in 0.7 g/dL 0.6-1. 6 Not Available [facility] (Outpatient) [address] [place], [address], 03/05/2023 14:52:35 03/04/20 23 03/05/2023 SERUM PROTE IN ELECT ROPHO RESIS W/O IMMUN OGLOB ULINS AND IMMUN OFIXA TION A/G ratio 0.90 Not Available [facility] (Outpatient) [address] [place], [address], 03/05/2023 14:52:35 03/04/20 23 03/05/2023 SERUM PROTE IN ELECT ROPHO RESIS W/O IMMUN OGLOB ULINS AND IMMUN OFIXA TION M spike g/dL Test compo nent not appli cable or not repor tracy. Test compo nent not appli cable or not repor tracy. Not Available [facility] (Outpatient) [address] [place], [address], 03/05/2023 14:52:35 03/04/20 23 03/05/2023 SERUM PROTE IN ELECT ROPHO RESIS W/O IMMUN OGLOB ULINS AND IMMUN OFIXA TION impression SEE NOTE (NOTE ) No appar ent monoc lonal prote in on serum elect ropho resis . Not Available [facility] (Outpatient) [address] [place], [address], 03/05/2023 14:52:35 03/08/20 23 03/08/2023 RBC MORPH OLOGY hypochrom 1+ Not Available [address], [address], 03/08/2023 12:15:40 03/08/20 23 03/08/2023 RBC MORPH OLOGY poik 1+ Not Available [address], [address], 03/08/2023 12:15:40 03/08/20 23 03/08/2023 RBC MORPH OLOGY aniso 1+ Not Available [address], [address], 03/08/2023 12:15:40 03/08/20 23 03/08/2023 CBC WBC 11.34 K/ L 4.23-9 .07 high Not Available [address] [place], [address], 03/08/2023 12:16:05 03/08/20 23 03/08/2023 CBC RBC 3.75 M/ L 4.63-6 .08 low Not Available [address], [address], 03/08/2023 12:16:05 03/08/20 23 03/08/2023 CBC HGB 8.4 g/dL 13.7-1 7.5 low Not Available [address], [address], 03/08/2023 12:16:05 03/08/2003/08/2023 CBC HCT 29.1 % 40.1-5 1.0 low Not Available [address], [address], 03/08/2023 12:16:05 03/08/2003/08/2023 CBC MCV 77.6 fL 79.0-9 2.2 low Not Available [address], [address], 03/08/2023 12:16:05 03/08/2003/08/2023 CBC MCH 22.4 pg 25.7-3 2.2 low Not Available [address], [address], 03/08/2023 12:16:05 03/08/2003/08/2023 CBC MCHC 28.9 g/dL 32.3-3 6.5 low SREV= Slide revie [facility]. Not Available [address], [address], 03/08/2023 12:16:05 03/08/2003/08/2023 CBC plt 548 K/ L 163-33 7 high Not Available [address], [address], 03/08/2023 12:16:03/08/20 23 03/08/2023 CBC MPV 10.5 fL 9.4-12 .4 Not Available [address], [address], 03/08/2023 12:16:03/08/2003/08/2023 CBC neut% 74.8 % 34.0-6 7.9 high Not Available [address], [address], 03/08/2023 12:16:03/08/20 23 03/08/2023 CBC neut# 8.48 1.78-5 .38 high Not Available [address], [address], 03/08/2023 12:16:03/08/20 23 03/08/2023 CBC lymph % 12.7 % 21.8-5 3.1 low Not Available [address], [address], 03/08/2023 12:16:03/08/20 23 03/08/2023 CBC lymph # 1.44 K/ L 1.32-3 .57 Not Available [address], [address], 03/08/2023 12:16:03/08/2003/08/2023 CBC mono% 8.6 % 5.3-12 .2 Not Available [address], [address], 03/08/2023 12:16:03/08/2003/08/2023 CBC mono# 0.97 0.30-0 .82 high Not Available [address], [address], 03/08/2023 12:16:05 03/08/20 23 03/08/2023 CBC eo% 2.3 % 0.8-7. 0 Not Available [address], [address], 03/08/2023 12:16:05 03/08/20 23 03/08/2023 CBC eo# 0.26 0.04-0 .54 Not Available [address], [address], 03/08/2023 12:16:05 03/08/20 23 03/08/2023 CBC baso% 1.1 % 0.2-1. 2 Not Available [address], [address], 03/08/2023 12:16:05 03/08/2003/08/2023 CBC baso# 0.13 0.00-0 .08 high Not Available [address], [address], 03/08/2023 12:16:05 03/08/2003/08/2023 CBC RDW-CV 18.4 % 11.6-1 4.4 high Not Available [address], [address], 03/08/2023 12:16:05 03/08/2003/08/2023 CBC Ig% 0.500 % 0.000- 1.500 Ig % >0.5 Indic ates possi ble Left Shift Not Available [address], [address], 03/08/2023 12:16:05 03/08/2003/08/2023 CBC Ig# 0.060 0.000- 0.093 Not Available [address], [address], 03/08/2023 12:16:03/08/2003/08/2023 CBC NRBC% 0.0 % 0.0-0. 2 Not Available [address], [address], 03/08/2023 12:16:03/08/2003/08/2023 CBC NRBC# 0.000 0.000- 0.012 Not Available [facility] [address] [place], [address], 03/08/2023 12:16:05 03/15/2003/15/2023 CBC WBC 10.31 K/uL 4.00-1 1.00 Not Available [facility] (Outpatient) [address] [place], [address], 03/15/2023 09:48:56 03/15/2003/15/2023 CBC RBC 3.84 M/uL 3.90-5 .69 low Not Available [facility] (Outpatient) [address] [place], [address], 03/15/2023 09:48:56 03/15/2003/15/2023 CBC HGB 8.4 g/dL 12.4-1 7.3 low Not Available [facility] (Outpatient) [address] [place], [address], 03/15/2023 09:48:56 03/15/2003/15/2023 CBC HCT 29.7 % 37.0-5 1.0 low Not Available [facility] (Outpatient) [address] [place], [address], 03/15/2023 09:48:56 03/15/2003/15/2023 CBC plt 542 K/uL 140-43 0 high Not Available [facility] (Outpatient) [address] [place], [address], 03/15/2023 09:48:56 03/15/2003/15/2023 CBC MCV 77.3 fL 78.0-9 7.0 low Not Available [facility] (Outpatient) [address] [place], [address], 03/15/2023 09:48:56 03/15/2003/15/2023 CBC MCH 21.9 pg 25.0-3 3.0 low Not Available [facility] (Outpatient) [address] [place], [address], 03/15/2023 09:48:56 03/15/20 23 03/15/2023 CBC MCHC 28.3 g/dL 32.0-3 6.0 low Not Available [facility] (Outpatient) [address] [place], [address], 03/15/2023 09:48:56 03/15/20 23 03/15/2023 CBC RDW 18.9 % 11.0-1 5.0 high Not Available [facility] (Outpatient) [address] [place], [address], 03/15/2023 09:48:56 03/15/20 23 03/15/2023 CBC MPV 10.3 fL 8.4-12 .8 Not Available [facility] (Outpatient) [address] [place], [address], 03/15/2023 09:48:56 03/15/20 23 03/15/2023 BASIC METAB OLIC PANEL sodium 137 mmol/ L 133-14 6 Not Available [facility] (Outpatient) [address] [place], [address], 03/15/2023 10:15:31 03/15/20 23 03/15/2023 BASIC METAB OLIC PANEL chloride 90 mmol/ L 96-108 low Not Available [facility] (Outpatient) [address] [place], [address], 03/15/2023 10:15:31 03/15/20 23 03/15/2023 BASIC METAB OLIC PANEL potassium 3.5 mmol/ L 3.3-5. 1 Not Available [facility] (Outpatient) [address] [place], [address], 03/15/2023 10:15:31 03/15/20 23 03/15/2023 BASIC METAB OLIC PANEL CO2 38 mmol/ L 21-35 high Not Available [facility] (Outpatient) [address] [place], [address], 03/15/2023 10:15:31 03/15/20 23 03/15/2023 BASIC METAB OLIC PANEL BUN 16 mg/dL 6-19 Not Available [facility] (Outpatient) [address] [place], [address], 03/15/2023 10:15:31 03/15/20 23 03/15/2023 BASIC METAB OLIC PANEL creatinine 1.30 mg/dL 0.5-1. 5 Not Available [facility] (Outpatient) [address] [place], [address], 03/15/2023 10:15:31 03/15/20 23 03/15/2023 BASIC METAB OLIC PANEL glucose 109 mg/dL 70-99 high Not Available [facility] (Outpatient) [address] [place], [address], 03/15/2023 10:15:31 03/15/20 23 03/15/2023 BASIC METAB OLIC PANEL calcium 9.2 mg/dL 8.4-10 .3 Not Available [facility] (Outpatient) [address] [place], [id number], 03/15/2023 10:15:31 03/15/20 23 03/15/2023 BASIC METAB OLIC PANEL eGFR 63 mL/mi n/1.7 3m2 >59 Estim ated glome rular filtr ation rate calcu lated using the CKD-E PI refit equat ion. Not Available [facility] (Outpatient) [address] [place], [id number], 03/15/2023 10:15:31 03/15/20 23 03/15/2023 BASIC METAB OLIC PANEL anion gap 13 mmol/ L 10-20 Not Available [facility] (Outpatient) [address] [place], [id number], 03/15/2023 10:15:31 03/15/20 23 03/15/2023 DELMA TIN ferritin 13 ug/L 30-400 low Not Available [facility] (Outpatient) [address] [place], [id number], 03/15/2023 10:26:43 03/15/20 23 03/15/2023 NT-MI OBNP nt-probnp 137 pg/mL 0-125 high Not Available [facility] (Outpatient) [address] [place], [id number], 03/15/2023 10:26:44 03/15/20 23 03/15/2023 IRON AND IRON CLAUDIA NG CAPAC ITY iron 16 ug/dL 45-160 low Not Available [facility] (Outpatient) [address] [place], [id number], 03/15/2023 10:26:45 03/15/20 23 03/15/2023 IRON AND IRON CLAUDIA NG CAPAC ITY iron binding capacity 423 ug/dL [phone] Not Available [facility] (Outpatient) [address] [place], [address], 03/15/2023 10:26:45 03/15/20 23 03/15/2023 IRON AND IRON CLAUDIA NG CAPAC ITY transferrin saturat. 4 % 20-55 low Not Available [facility] (Outpatient) [address] [place], [address], 03/15/2023 10:26:45 03/22/20 23 03/22/2023 RBC MORPH OLOGY hypochrom Slight Not Available [address], [address], 03/22/2023 17:14:40 03/22/20 23 03/22/2023 RBC MORPH OLOGY aniso Slight Not Available [address], [address], 03/22/2023 17:14:40 03/22/20 23 03/22/2023 CBC WBC 10.49 K/ L 4.23-9 .07 high Not Available [address], [address], 03/22/2023 17:15:20 03/22/20 23 03/22/2023 CBC RBC 3.77 M/ L 4.63-6 .08 low Not Available [address], [address], 03/22/2023 17:15:20 03/22/20 23 03/22/2023 CBC HGB 8.1 g/dL 13.7-1 7.5 low Not Available [address], [address], 03/22/2023 17:15:20 03/22/20 23 03/22/2023 CBC HCT 28.3 % 40.1-5 1.0 low Not Available [address], [address], 03/22/2023 17:15:20 03/22/20 23 03/22/2023 CBC MCV 75.1 fL 79.0-9 2.2 low Not Available [address], [address], 03/22/2023 17:15:20 03/22/20 23 03/22/2023 CBC MCH 21.5 pg 25.7-3 2.2 low Not Available [address], [address], 03/22/2023 17:15:20 03/22/20 23 03/22/2023 CBC MCHC 28.6 g/dL 32.3-3 6.5 low SREV= Slide [facility]. Not Available [address], [address], 03/22/2023 17:15:20 03/22/20 23 03/22/2023 CBC plt 503 K/ L 163-33 7 high Not Available [address], [address], 03/22/2023 17:15:20 03/22/20 23 03/22/2023 CBC MPV 10.0 fL 9.4-12 .4 Not Available [address], [address], 03/22/2023 17:15:20 03/22/20 23 03/22/2023 CBC neut% 70.4 % 34.0-6 7.9 high Not Available [address], [address], 03/22/2023 17:15:20 03/22/20 23 03/22/2023 CBC neut# 7.38 1.78-5 .38 high Not Available [address], [address], 03/22/2023 17:15:20 03/22/20 23 03/22/2023 CBC lymph % 16.0 % 21.8-5 3.1 low Not Available [address], [address], 03/22/2023 17:15:20 03/22/20 23 03/22/2023 CBC lymph # 1.68 K/ L 1.32-3 .57 Not Available [address], [address], 03/22/2023 17:15:20 03/22/20 23 03/22/2023 CBC mono% 9.6 % 5.3-12 .2 Not Available [address], [address], 03/22/2023 17:15:20 03/22/20 23 03/22/2023 CBC mono# 1.01 0.30-0 .82 high Not Available [address], [address], 03/22/2023 17:15:20 03/22/20 23 03/22/2023 CBC eo% 2.1 % 0.8-7. 0 Not Available [address], [address], 03/22/2023 17:15:20 03/22/20 23 03/22/2023 CBC eo# 0.22 0.04-0 .54 Not Available [address], [address], 03/22/2023 17:15:20 03/22/20 23 03/22/2023 CBC baso% 1.0 % 0.2-1. 2 Not Available [address], [address], 03/22/2023 17:15:20 03/22/20 23 03/22/2023 CBC baso# 0.11 0.00-0 .08 high Not Available [address], [address], 03/22/2023 17:15:20 03/22/20 23 03/22/2023 CBC RDW-CV 19.4 % 11.6-1 4.4 high SREV= Slide revie [facility]. Not Available [address], [address], 03/22/2023 17:15:20 03/22/20 23 03/22/2023 CBC Ig% 0.900 % 0.000- 1.500 Ig % >0.5 Indic ates possi ble Left Shift Not Available [address], [address], 03/22/2023 17:15:20 03/22/20 23 03/22/2023 CBC Ig# 0.090 0.000- 0.093 Not Available [address], [address], 03/22/2023 17:15:20 03/22/20 23 03/22/2023 CBC NRBC% 0.0 % 0.0-0. 2 Not Available [address], [address], 03/22/2023 17:15:20 03/22/20 23 03/22/2023 CBC NRBC# 0.000 0.000- 0.012 Not Available [address], [address], 03/22/2023 17:15:20 04/05/20 23 04/06/2023 CBC (INCL UDES DIFF/ PLT) white blood cell count 12.2 thous and/u L 3.8-10 .8 high Not Available [facility] [address], [address], 04/06/2023 11:22:35 04/05/20 23 04/06/2023 CBC (INCL UDES DIFF/ PLT) red blood cell count 3.77 fany on/uL 4.20-5 .80 low Not Available [facility] [address], [place], [address], 04/06/2023 11:22:35 04/05/20 23 04/06/2023 CBC (INCL UDES DIFF/ PLT) hemoglobin 8.4 g/dL 13.2-1 7.1 low Not Available [facility] [address], [place], [address], 04/06/2023 11:22:35 04/05/20 23 04/06/2023 CBC (INCL UDES DIFF/ PLT) hematocrit 30.1 % 38.5-5 0.0 low Not Available [facility] [address], [address], 04/06/2023 11:22:35 04/05/20 23 04/06/2023 CBC (INCL UDES DIFF/ PLT) MCV 79.8 fL 80.0-1 00.0 low Not Available [facility] [address], [place], [address], 04/06/2023 11:22:35 04/05/20 23 04/06/2023 CBC (INCL UDES DIFF/ PLT) MCH 22.3 pg 27.0-3 3.0 low Not Available [facility] [address], [place], [address], 04/06/2023 11:22:35 04/05/20 23 04/06/2023 CBC (INCL UDES DIFF/ PLT) MCHC 27.9 g/dL 32.0-3 6.0 low Not Available [facility] [address], [place], [address], 04/06/2023 11:22:35 04/05/20 23 04/06/2023 CBC (INCL UDES DIFF/ PLT) RDW 20.1 % 11.0-1 5.0 high Not Available [facility] [address], [place], [address], 04/06/2023 11:22:35 04/05/20 23 04/06/2023 CBC (INCL UDES DIFF/ PLT) platelet count 574 thous and/u L 140-40 0 high Not Available [facility] [address], [place], [address], 04/06/2023 11:22:35 04/05/20 23 04/06/2023 CBC (INCL UDES DIFF/ PLT) MPV 10.8 fL 7.5-12 .5 normal Not Available [facility] [address], [place], [address], 04/06/2023 11:22:35 04/05/20 23 04/06/2023 CBC (INCL UDES DIFF/ PLT) absolute neutrophils 9760 cells /uL 1500-7 800 high Not Available [facility] [address], [place], [address], 04/06/2023 11:22:35 04/05/20 23 04/06/2023 CBC (INCL UDES DIFF/ PLT) absolute lymphocytes 1342 cells /uL 850-39 00 normal Not Available [facility] [address], [place], [address], 04/06/2023 11:22:35 04/05/20 23 04/06/2023 CBC (INCL UDES DIFF/ PLT) absolute monocytes 927 cells /uL 200-95 0 normal Not Available [facility] [address], [place], [address], 04/06/2023 11:22:35 04/05/20 23 04/06/2023 CBC (INCL UDES DIFF/ PLT) absolute eosinophils 85 cells /uL 15-500 normal Not Available [facility] [address], [place], [address], 04/06/2023 11:22:35 04/05/20 23 04/06/2023 CBC (INCL UDES DIFF/ PLT) absolute basophils 85 cells /uL 0-200 normal Not Available [facility] [address], [place], [address], 04/06/2023 11:22:35 04/05/20 23 04/06/2023 CBC (INCL UDES DIFF/ PLT) neutrophils 80 % normal Not Available [facility] [address], [place], [address], 04/06/2023 11:22:35 04/05/20 23 04/06/2023 CBC (INCL UDES DIFF/ PLT) lymphocytes 11.0 % normal Not Available [facility] [address], [place], [address], 04/06/2023 11:22:35 04/05/20 23 04/06/2023 CBC (INCL UDES DIFF/ PLT) monocytes 7.6 % normal Not Available [facility] [address], [place], [address], 04/06/2023 11:22:35 04/05/20 23 04/06/2023 CBC (INCL UDES DIFF/ PLT) eosinophils 0.7 % normal Not Available [facility] [address], [place], [address], 04/06/2023 11:22:35 04/05/20 23 04/06/2023 CBC (INCL UDES DIFF/ PLT) basophils 0.7 % normal Not Available [facility] [address], [place], [address], 04/06/2023 11:22:35 06/03/20 23 06/03/2023 CBC WBC 11.05 K/uL 4.00-1 1.00 high Not Available [facility] (Outpatient) [address] [place] [address], [address], 06/03/2023 12:36:39 06/03/20 23 06/03/2023 CBC RBC 4.86 M/uL 3.90-5 .69 Not Available [facility] (Outpatient) [address] [place] [address], [address], 06/03/2023 12:36:39 06/03/20 23 06/03/2023 CBC HGB 13.2 g/dL 12.4-1 7.3 Not Available [facility] (Outpatient) [address] [place] [address], [address], 06/03/2023 12:36:39 11/27/06/03/2023 CBC HCT 42.9 % 37.0-5 1.0 Not Available [facility] (Outpatient) [address] [place], [address], 06/03/2023 12:36:39 06/03/2006/03/2023 CBC plt 358 K/uL 140-43 0 Not Available [facility] (Outpatient) [address] [place] [address], [address], 06/03/2023 12:36:39 06/03/2006/03/2023 CBC MCV 88.3 fL 78.0-9 7.0 Not Available [facility] (Outpatient) [address] [place] [address], [address], 06/03/2023 12:36:39 06/03/20 23 06/03/2023 CBC MCH 27.2 pg 25.0-3 3.0 Not Available [facility] (Outpatient) [address] [place] [address], [address], 06/03/2023 12:36:39 06/03/20 23 06/03/2023 CBC MCHC 30.8 g/dL 32.0-3 6.0 low Not Available [facility] (Outpatient) [address] [place] [address], [address], 06/03/2023 12:36:39 06/03/20 23 06/03/2023 CBC RDW 23.8 % 11.0-1 5.0 high Not Available [facility] (Outpatient) [address] [place] [address], [address], 06/03/2023 12:36:39 06/03/20 23 06/03/2023 CBC MPV 9.4 fL 8.4-12 .8 Not Available [facility] (Outpatient) [address] [place] [address], [address], 06/03/2023 12:36:39 06/03/2006/03/2023 NT-MI OBNP nt-probnp 490 pg/mL 0-125 high Not Available [facility] (Outpatient) [address] [place], [address], 06/03/2023 13:22:43 06/05/20 23 06/05/2023 CBC AND DIFFE RENTI AL WBC 11.15 K/uL 4.00-1 1.00 high Not Available [facility] (Outpatient) [address] [place], [address], 06/05/2023 10:28:57 06/05/20 23 06/05/2023 CBC AND DIFFE RENTI AL RBC 4.95 M/uL 3.90-5 .69 Not Available [facility] (Outpatient) [address] [place] [address], [address], 06/05/2023 10:28:57 06/05/20 23 06/05/2023 CBC AND DIFFE RENTI AL HGB 13.7 g/dL 12.4-1 7.3 Not Available [facility] (Outpatient) [address] [place] [address], [address], 06/05/2023 10:28:57 06/05/20 23 06/05/2023 CBC AND DIFFE RENTI AL HCT 43.3 % 37.0-5 1.0 Not Available [facility] (Outpatient) [address] [place] [address], [address], 06/05/2023 10:28:57 06/05/20 23 06/05/2023 CBC AND DIFFE RENTI AL plt 325 K/uL 140-43 0 Not Available [facility] (Outpatient) [address] [place] [address], [address], 06/05/2023 10:28:57 06/05/20 23 06/05/2023 CBC AND DIFFE RENTI AL MCV 87.5 fL 78.0-9 7.0 Not Available [facility] (Outpatient) [address] [place] [address], [address], 06/05/2023 10:28:57 06/05/20 23 06/05/2023 CBC AND DIFFE RENTI AL MCH 27.7 pg 25.0-3 3.0 Not Available [facility] (Outpatient) [address] [place], [address], 06/05/2023 10:28:57 06/05/20 23 06/05/2023 CBC AND DIFFE RENTI AL MCHC 31.6 g/dL 32.0-3 6.0 low Not Available [facility] (Outpatient) [address] [place], [address], 06/05/2023 10:28:57 06/05/20 23 06/05/2023 CBC AND DIFFE RENTI AL RDW 22.9 % 11.0-1 5.0 high Not Available [facility] (Outpatient) [address] [place], [address], 06/05/2023 10:28:57 06/05/20 23 06/05/2023 CBC AND DIFFE RENTI AL MPV 8.6 fL 8.4-12 .8 Not Available [facility] (Outpatient) [address] [place], [address], 06/05/2023 10:28:57 06/05/20 23 06/05/2023 CBC AND DIFFE RENTI AL diff method Auto Not Available [facility] (Outpatient) [address] [place], [address], 06/05/2023 10:28:57 06/05/20 23 06/05/2023 CBC AND DIFFE RENTI AL neuts 75.7 % 43.0-7 5.0 high Not Available [facility] (Outpatient) [address] [place], [address], 06/05/2023 10:28:57 06/05/20 23 06/05/2023 CBC AND DIFFE RENTI AL lymphs 11.9 % 18.2-4 7.4 low Not Available [facility] (Outpatient) [address] [place], [address], 06/05/2023 10:28:57 06/05/20 23 06/05/2023 CBC AND DIFFE RENTI AL monos 9.0 % 4.00-1 1.00 Not Available [facility] (Outpatient) [address] [place], [address], 06/05/2023 10:28:57 06/05/20 23 06/05/2023 CBC AND DIFFE RENTI AL eos 1.5 % 0.0-8. 0 Not Available [facility] (Outpatient) [address] [place], [address], 06/05/2023 10:28:57 06/05/20 23 06/05/2023 CBC AND DIFFE RENTI AL basos 0.8 % 0.0-2. 0 Not Available [facility] (Outpatient) [address] [place], [address], 06/05/2023 10:28:57 06/05/20 23 06/05/2023 CBC AND DIFFE RENTI AL granulocytes , immature (%) 1.1 % 0.0-0. 9 high Not Available [facility] (Outpatient) [address] [place] [address], [address], 06/05/2023 10:28:57 06/05/20 23 06/05/2023 CBC AND DIFFE RENTI AL absolute neuts 8.44 K/uL 1.80-7 .70 high Not Available [facility] (Outpatient) [address] [place], [address], 06/05/2023 10:28:57 06/05/20 23 06/05/2023 CBC AND DIFFE RENTI AL absolute lymphs 1.33 K/uL 1.00-3 .10 Not Available [facility] (Outpatient) [address] [place], [address], 06/05/2023 10:28:57 06/05/20 23 06/05/2023 CBC AND DIFFE RENTI AL absolute monos 1.00 K/uL 0.20-0 .80 high Not Available [facility] (Outpatient) [address] [place], [address], 06/05/2023 10:28:57 06/05/20 23 06/05/2023 CBC AND DIFFE RENTI AL absolute eos 0.17 K/uL 0.00-0 .80 Not Available [facility] (Outpatient) [address] [place], [address], 06/05/2023 10:28:57 06/05/20 23 06/05/2023 CBC AND DIFFE RENTI AL absolute basos 0.09 K/uL 0.00-0 .09 Not Available [facility] (Outpatient) [address] [place], [address], 06/05/2023 10:28:57 06/05/20 23 06/05/2023 CBC AND DIFFE RENTI AL granulocytes , immature 0.12 K/uL 0.00-0 .05 high Not Available [facility] (Outpatient) [address] [place], [address], 06/05/2023 10:28:57 06/05/20 23 06/05/2023 TROPO JOURDAN troponin-T, hs gen5 13 NG/L 0-14 Not Available [facility] (Outpatient) [address] [place], [address], 06/05/2023 10:42:42 06/05/20 23 06/05/2023 PT-IN R PT 22.8 sec 10.2-1 2.9 high Not Available [facility] (Outpatient) [address] [place], [address], 06/05/2023 10:46:16 06/05/20 23 06/05/2023 PT-IN R INR 2.0 0.9-1. 1 high Thera peuti c range for oral Vitam in K antag onist s: 2.0-3 .5 Not Available [facility] (Outpatient) [address] [place], [address], 06/05/2023 10:46:16 06/05/20 23 06/05/2023 BASIC METAB OLIC PANEL sodium 134 mmol/ L 133-14 6 Not Available [facility] (Outpatient) [address] [place], [address], 06/05/2023 11:02:34 06/05/20 23 06/05/2023 BASIC METAB OLIC PANEL chloride 83 mmol/ L 96-108 low Not Available [facility] (Outpatient) [address] [place], [address], 06/05/2023 11:02:34 06/05/20 23 06/05/2023 BASIC METAB OLIC PANEL potassium 4.2 mmol/ L 3.3-5. 1 Not Available [facility] (Outpatient) [address] [place], [address], 06/05/2023 11:02:34 06/05/20 23 06/05/2023 BASIC METAB OLIC PANEL CO2 40 mmol/ L 21-35 high Not Available [facility] (Outpatient) [address] [place], [address], 06/05/2023 11:02:34 06/05/20 23 06/05/2023 BASIC METAB OLIC PANEL BUN 17 mg/dL 6-19 Not Available [facility] (Outpatient) [address] [place], [address], 06/05/2023 11:02:34 06/05/20 23 06/05/2023 BASIC METAB OLIC PANEL creatinine 1.10 mg/dL 0.5-1. 5 Not Available [facility] (Outpatient) [address] [place], [address], 06/05/2023 11:02:34 06/05/20 23 06/05/2023 BASIC METAB OLIC PANEL glucose 118 mg/dL 70-99 high Not Available [facility] (Outpatient) [address] [place], [address], 06/05/2023 11:02:34 06/05/20 23 06/05/2023 BASIC METAB OLIC PANEL calcium 9.2 mg/dL 8.4-10 .3 Not Available [facility] (Outpatient) [address] [place], [address], 06/05/2023 11:02:34 06/05/20 23 06/05/2023 BASIC METAB OLIC PANEL eGFR 77 mL/mi n/1.7 3m2 >59 Estim ated glome rular filtr ation rate calcu lated using the CKD-E PI refit equat ion. Not Available [facility] (Outpatient) [address] [place], [address], 06/05/2023 11:02:34 06/05/20 23 06/05/2023 BASIC METAB OLIC PANEL anion gap 15 mmol/ L 10-20 Not Available [facility] (Outpatient) [address] [place], [address], 06/05/2023 11:02:34 06/05/20 23 06/05/2023 LIPAS E lipase 26 U/L 16-63 Not Available [facility] (Outpatient) [address] [place], [address], 06/05/2023 11:02:35 06/05/20 23 06/05/2023 LFTS (HEPA TIC PANEL ) alkaline phosphatase 117 U/L 39-117 Not Available [facility] (Outpatient) [address] [place], [address], 06/05/2023 11:02:37 06/05/20 23 06/05/2023 LFTS (HEPA TIC PANEL ) total bilirubin 0.5 mg/dL 0.0-1. 2 Not Available [facility] (Outpatient) [address] [place], [address], 06/05/2023 11:02:37 06/05/20 23 06/05/2023 LFTS (HEPA TIC PANEL ) direct bilirubin <0.2 mg/dL 0-0.3 Not Available [facility] (Outpatient) [address] [place], [address], 06/05/2023 11:02:37 06/05/20 23 06/05/2023 LFTS (HEPA TIC PANEL ) bilirubin (indirect) NOT CALCUL ATED mg/dL 0-1.5 Not Available [facility] (Outpatient) [address] [place], [address], 06/05/2023 11:02:37 06/05/20 23 06/05/2023 LFTS (HEPA TIC PANEL ) AST 73 U/L 0-37 high Not Available [facility] (Outpatient) [address] [place], [address], 06/05/2023 11:02:37 06/05/20 23 06/05/2023 LFTS (HEPA TIC PANEL ) ALT 48 U/L 0-40 high Not Available [facility] (Outpatient) [address] [place], [address], 06/05/2023 11:02:37 06/05/20 23 06/05/2023 LFTS (HEPA TIC PANEL ) total protein 6.8 g/dL 6.5-8. 0 Not Available [facility] (Outpatient) [address] [place], [address], 06/05/2023 11:02:37 06/05/20 23 06/05/2023 LFTS (HEPA TIC PANEL ) albumin 4.0 g/dL 3.9-4. 8 Not Available [facility] (Outpatient) [address] [place], [address], 06/05/2023 11:02:37 06/05/20 23 06/05/2023 LFTS (HEPA TIC PANEL ) globulin 2.8 g/dL 1-4.8 Not Available [facility] (Outpatient) [address] [place], [address], 06/05/2023 11:02:37 06/05/20 23 06/05/2023 LFTS (HEPA TIC PANEL ) A/G ratio 1.43 ratio 1.00-4 .80 Not Available [facility] (Outpatient) [address] [place], [address], 06/05/2023 11:02:37 06/05/20 23 06/05/2023 MAGNE SIUM magnesium 1.7 mg/dL 1.6-2. 6 Not Available [facility] (Outpatient) [address] [place], [address], 06/05/2023 11:02:38 06/05/20 23 06/05/2023 NT-MI OBNP nt-probnp 390 pg/mL 0-125 high Not Available [facility] (Outpatient) [address] [place], [address], 06/05/2023 11:02:39 06/05/20 23 06/05/2023 TROPO JOURDAN troponin-T, hs gen5 12 NG/L 0-14 Not Available [facility] (Outpatient) [address] [place], [address], 06/05/2023 12:06:11 07/09/19 24 07/09/2023 CBC AND DIFFE RENTI AL WBC 10.89 K/uL 4.00-1 1.00 Not Available [facility] (Outpatient) [address] [place], [address], 07/09/2023 08:43:47 07/09/19 24 07/09/2023 CBC AND DIFFE RENTI AL RBC 4.90 M/uL 3.90-5 .69 Not Available [facility] (Outpatient) [address] [place] [address], [address], 07/09/2023 08:43:47 07/09/19 24 07/09/2023 CBC AND DIFFE RENTI AL HGB 14.0 g/dL 12.4-1 7.3 Not Available [facility] (Outpatient) [address] [place], [address], 07/09/2023 08:43:47 07/09/19 24 07/09/2023 CBC AND DIFFE RENTI AL HCT 45.2 % 37.0-5 1.0 Not Available [facility] (Outpatient) [address] [place] [address], [address], 07/09/2023 08:43:47 07/09/19 24 07/09/2023 CBC AND DIFFE RENTI AL plt 266 K/uL 140-43 0 Not Available [facility] (Outpatient) [address] [place] [address], [address], 07/09/2023 08:43:47 07/09/19 24 07/09/2023 CBC AND DIFFE RENTI AL MCV 92.2 fL 78.0-9 7.0 Not Available [facility] (Outpatient) [address] [place] [address], [address], 07/09/2023 08:43:47 07/09/19 24 07/09/2023 CBC AND DIFFE RENTI AL MCH 28.6 pg 25.0-3 3.0 Not Available [facility] (Outpatient) [address] [place] [address], [address], 07/09/2023 08:43:47 07/09/19 24 07/09/2023 CBC AND DIFFE RENTI AL MCHC 31.0 g/dL 32.0-3 6.0 low Not Available [facility] (Outpatient) [address] [place], [address], 07/09/2023 08:43:47 07/09/19 24 07/09/2023 CBC AND DIFFE RENTI AL RDW 17.0 % 11.0-1 5.0 high Not Available [facility] (Outpatient) [address] [place] [address], [address], 07/09/2023 08:43:47 07/09/19 24 07/09/2023 CBC AND DIFFE RENTI AL MPV 10.2 fL 8.4-12 .8 Not Available [facility] (Outpatient) [address] [place] [address], [address], 07/09/2023 08:43:47 07/09/19 24 07/09/2023 CBC AND DIFFE RENTI AL diff method AUTO Not Available [facility] (Outpatient) [address] [place], [address], 07/09/2023 08:43:47 07/09/19 24 07/09/2023 CBC AND DIFFE RENTI AL neuts 58.7 % 43.0-7 5.0 Not Available [facility] (Outpatient) [address] [place] [address], [address], 07/09/2023 08:43:47 07/09/19 24 07/09/2023 CBC AND DIFFE RENTI AL lymphs 25.9 % 18.2-4 7.4 Not Available [facility] (Outpatient) [address] [place], [address], 07/09/2023 08:43:47 07/09/19 24 07/09/2023 CBC AND DIFFE RENTI AL monos 9.0 % 4.00-1 1.00 Not Available [facility] (Outpatient) [address] [place] [address], [address], 07/09/2023 08:43:47 07/09/19 24 07/09/2023 CBC AND DIFFE RENTI AL eos 4.3 % 0.0-8. 0 Not Available [facility] (Outpatient) [address] [place], [id number], 07/09/2023 08:43:47 07/09/19 24 07/09/2023 CBC AND DIFFE RENTI AL basos 1.3 % 0.0-2. 0 Not Available [facility] (Outpatient) [address] [place], [id number], 07/09/2023 08:43:47 07/09/19 24 07/09/2023 CBC AND DIFFE RENTI AL granulocytes , immature (%) 0.8 % 0.0-0. 9 Not Available [facility] (Outpatient) [address] [place], [id number], 07/09/2023 08:43:47 07/09/19 24 07/09/2023 CBC AND DIFFE RENTI AL absolute neuts 6.39 K/uL 1.80-7 .70 Not Available [facility] (Outpatient) [address] [place] [address], [id number], 07/09/2023 08:43:47 07/09/19 24 07/09/2023 CBC AND DIFFE RENTI AL absolute lymphs 2.82 K/uL 1.00-3 .10 Not Available [facility] (Outpatient) [address] [place], [address], 07/09/2023 08:43:47 07/09/19 24 07/09/2023 CBC AND DIFFE RENTI AL absolute monos 0.98 K/uL 0.20-0 .80 high Not Available [facility] (Outpatient) [address] [place] [address], [id number], 07/09/2023 08:43:47 07/09/19 24 07/09/2023 CBC AND DIFFE RENTI AL absolute eos 0.47 K/uL 0.00-0 .80 Not Available [facility] (Outpatient) [address] [place], [address], 07/09/2023 08:43:47 07/09/19 24 07/09/2023 CBC AND DIFFE RENTI AL absolute basos 0.14 K/uL 0.00-0 .09 high Not Available [facility] [facility] [address] [place], [address], 07/09/2023 08:43:47 07/09/19 24 07/09/2023 CBC AND DIFFE RENTI AL granulocytes , immature 0.09 K/uL 0.00-0 .05 high Not Available [facility] (Out[facility]) [address] [place], [address], 07/09/2023 08:43:47 07/09/19 24 07/09/2023 FOLAT E folic acid 6.5 NG/mL 4.2-19 .9 Not Available [facility] (Out[facility]) [address] [place], [address], 07/09/2023 09:49:02 07/09/19 24 07/09/2023 DELMA TIN ferritin 154 ug/L 30-400 Not Available [facility] ([facility]) [address] [place], [address], 07/09/2023 09:51:38 07/09/19 24 07/09/2023 IRON AND IRON CLAUDIA NG CAPAC ITY iron 62 ug/dL 45-160 Not Available [facility] (Out[facility]) [address] [place] [address], [address], 07/09/2023 09:51:40 07/09/19 24 07/09/2023 IRON AND IRON CLAUDIA NG CAPAC ITY iron binding capacity 307 ug/dL 228-42 8 Not Available [facility] (Out[facility]) [address] [place], [address], 07/09/2023 09:51:40 07/09/19 24 07/09/2023 IRON AND IRON CLAUDIA NG CAPAC ITY transferrin saturat. 20 % 20-55 Not Available [facility] ([facility]) [address] [place], [address], 07/09/2023 09:51:40 07/06/20 24 07/06/2024 COMPR EHENS JAX METAB OLIC PANEL sodium 139 mmol/ L 133-14 6 Not Available [facility] ([facility]) [address] [place], [address], 07/06/2024 11:14:21 07/06/20 24 07/06/2024 COMPR EHENS JAX METAB OLIC PANEL potassium 4.9 mmol/ L 3.3-5. 1 Not Available [facility] ([facility]) [address] [place] [address], [address], 07/06/2024 11:14:21 07/06/20 24 07/06/2024 COMPR EHENS JAX METAB OLIC PANEL chloride 100 mmol/ L 96-108 Not Available [facility] ([facility]) [address] [place] [address], [address], 07/06/2024 11:14:21 07/06/20 24 07/06/2024 COMPR EHENS JAX METAB OLIC PANEL CO2 30 mmol/ L 21-35 Not Available [facility]) [address] [place] [address], [address], 07/06/2024 11:14:21 07/06/20 24 07/06/2024 COMPR EHENS JAX METAB OLIC PANEL BUN 17 mg/dL 6-19 Not Available [facility]) [address] [place] [address], [address], 07/06/2024 11:14:21 07/06/20 24 07/06/2024 COMPR EHENS JAX METAB OLIC PANEL creatinine 1.20 mg/dL 0.5-1. 5 Not Available [facility] ([facility]) [address] [place], [address], 07/06/2024 11:14:21 07/06/20 24 07/06/2024 COMPR EHENS JAX METAB OLIC PANEL glucose 100 mg/dL 70-99 high Not Available [facility] (Outpatient) [address] [place], [address], 07/06/2024 11:14:21 07/06/20 24 07/06/2024 COMPR EHENS JAX METAB OLIC PANEL albumin 4.4 g/dL 3.9-4. 8 Not Available [facility] ([facility]) [address] [place], [address], 07/06/2024 11:14:21 07/06/20 24 07/06/2024 COMPR EHENS JAX METAB OLIC PANEL total protein 7.2 g/dL 6.5-8. 0 Not Available [facility] ([facility]) [address] [place], [address], 07/06/2024 11:14:21 07/06/20 24 07/06/2024 COMPR EHENS JAX METAB OLIC PANEL calcium 9.6 mg/dL 8.4-10 .3 Not Available [facility] (Out[facility]) [address] [place], [address], 07/06/2024 11:14:21 07/06/20 24 07/06/2024 COMPR EHENS JAX METAB OLIC PANEL alkaline phosphatase 79 U/L 39-117 Not Available [facility] (Outpatient) [address] [place], [address], 07/06/2024 11:14:21 07/06/20 24 07/06/2024 COMPR EHENS JAX METAB OLIC PANEL total bilirubin 0.3 mg/dL 0.0-1. 2 Not Available [facility] (Outpatient) [address] [place], [address], 07/06/2024 11:14:21 07/06/20 24 07/06/2024 COMPR EHENS JAX METAB OLIC PANEL AST 19 U/L 0-37 Not Available [facility] (Out[facility]) [address] [place], [address], 07/06/2024 11:14:21 07/06/20 24 07/06/2024 COMPR EHENS JAX METAB OLIC PANEL ALT 14 U/L 0-40 Not Available [facility] (Out[facility]) [address] [place], [address], 07/06/2024 11:14:21 07/06/20 24 07/06/2024 COMPR EHENS JAX METAB OLIC PANEL globulin 2.8 g/dL 1-4.8 Not Available [facility] ([facility]) [address] [place], [address], 07/06/2024 11:14:21 07/06/20 24 07/06/2024 COMPR EHENS JAX METAB OLIC PANEL eGFR 69 mL/mi n/1.7 3m2 >59 Estim ated glome rular filtr ation rate calcu lated using the CKD-E PI refit equat ion. Not Available [facility] (Out[facility]) [address] [place], [address], 07/06/2024 11:14:21 07/06/20 24 07/06/2024 COMPR EHENS JAX METAB OLIC PANEL anion gap 14 mmol/ L 10-20 Not Available [facility] ([facility]) [address] [place], [address], 07/06/2024 11:14:21 07/06/20 24 07/06/2024 LIPID PANEL [...] davido marquis, sex and age. Not Available [facility] ([facility]) [address] [place], [address], 07/06/2024 11:38:25 07/06/20 24 07/06/2024 LIPID PANEL cholesterol 154 mg/dL 0-240 Not Available [facility] ([facility]) [address] [place], [address], 07/06/2024 11:38:25 07/06/20 24 07/06/2024 LIPID PANEL triglyceride s 60 mg/dL 30-160 Not Available [facility] ([facility]) [address] [place], [address], 07/06/2024 11:38:25 07/06/20 24 07/06/2024 LIPID PANEL LDL 87 mg/dL 50-129 LDL level s in terms of risk for coron milly heart disea se: <100 mg/dL : Optim al 100-1 29 mg/dL : Near or above optim al 130-1 59 mg/dL : Borde rline high 160-1 89 mg/dL : High >190 mg/dL : Very High Not Available [facility] (Out[facility]) [address] [place], [address], 07/06/2024 11:38:25 07/06/20 24 07/06/2024 LIPID PANEL cardiac risk ratio 2.8 3.4-5. 0 low Not Available [facility] (Out[facility]) [address] [place], [address], 07/06/2024 11:38:25 08/27/19 25 08/28/2024 CBC WBC 8.97 K/ L 4.23-9 .07 Not Available [address], [address], 08/28/2024 11:16:23 08/27/19 25 08/28/2024 CBC RBC 4.29 M/ L 4.63-6 .08 low Not Available [address], [address], 08/28/2024 11:16:23 08/27/19 25 08/28/2024 CBC HGB 11.5 g/dL 13.7-1 7.5 low Not Available [address], [address], 08/28/2024 11:16:23 08/27/19 25 08/28/2024 CBC HCT 38.7 % 40.1-5 1.0 low Not Available [address], [address], 08/28/2024 11:16:23 08/27/19 25 08/28/2024 CBC MCV 90.2 fL 79.0-9 2.2 Not Available [address], [address], 08/28/2024 11:16:23 08/27/19 25 08/28/2024 CBC MCH 26.8 pg 25.7-3 2.2 Not Available [address], [address], 08/28/2024 11:16:23 08/27/19 25 08/28/2024 CBC MCHC 29.7 g/dL 32.3-3 6.5 low Not Available [address], [address], 08/28/2024 11:16:23 08/27/19 25 08/28/2024 CBC plt 416 K/ L 163-33 7 high Not Available [address], [address], 08/28/2024 11:16:23 08/27/19 25 08/28/2024 CBC MPV 11.5 fL 9.4-12 .4 Not Available [address], [address], 08/28/2024 11:16:23 08/27/19 25 08/28/2024 CBC neut% 60.4 % 34.0-6 7.9 Not Available [address], [address], 08/28/2024 11:16:23 08/27/19 25 08/28/2024 CBC neut# 5.42 1.78-5 .38 high Not Available [address], [address], 08/28/2024 11:16:23 08/27/19 25 08/28/2024 CBC lymph % 20.1 % 21.8-5 3.1 low Not Available [address], [address], 08/28/2024 11:16:23 08/27/19 25 08/28/2024 CBC lymph # 1.80 K/ L 1.32-3 .57 Not Available [address], [address], 08/28/2024 11:16:23 08/27/19 25 08/28/2024 CBC mono% 13.2 % 5.3-12 .2 high Not Available [address], [address], 08/28/2024 11:16:23 08/27/19 25 08/28/2024 CBC mono# 1.18 0.30-0 .82 high Not Available [address], [address], 08/28/2024 11:16:23 08/27/19 25 08/28/2024 CBC eo% 1.3 % 0.8-7. 0 Not Available [address], [address], 08/28/2024 11:16:23 08/27/19 25 08/28/2024 CBC eo# 0.12 0.04-0 .54 Not Available [address], [address], 08/28/2024 11:16:23 08/27/19 25 08/28/2024 CBC baso% 1.7 % 0.2-1. 2 high Not Available [address], [address], 08/28/2024 11:16:23 08/27/19 25 08/28/2024 CBC baso# 0.15 0.00-0 .08 high Not Available [address], [address], 08/28/2024 11:16:23 08/27/19 25 08/28/2024 CBC RDW-CV 15.5 % 11.6-1 4.4 high Not Available [address], [address], 08/28/2024 11:16:23 08/27/19 25 08/28/2024 CBC Ig% 3.300 % 0.000- 1.500 high Ig % >0.5 Indic ates possi ble Left Shift Not Available [address], [address], 08/28/2024 11:16:23 08/27/19 25 08/28/2024 CBC Ig# 0.300 0.000- 0.093 high Not Available [address], [address], 08/28/2024 11:16:23 08/27/19 25 08/28/2024 CBC NRBC% 0.0 % 0.0-0. 2 Not Available [address], [address], 08/28/2024 11:16:23 08/27/19 25 08/28/2024 CBC NRBC# 0.000 0.000- 0.012 Not Available [address], [address], 08/28/2024 11:16:23 08/27/19 25 08/28/2024 COMP. METAB OLIC PANEL glucose 98 mg/dL 70-100 Not Available [address], [address], 08/28/2024 14:02:35 08/27/19 25 08/28/2024 COMP. METAB OLIC PANEL BUN 20 mg/dL 7-18 high Not Available [address], [address], 08/28/2024 14:02:35 08/27/19 25 08/28/2024 COMP. METAB OLIC PANEL creatinine 1.1 mg/dL 0.8-1. 3 Not Available [address], [address], 08/28/2024 14:02:35 08/27/19 25 08/28/2024 COMP. METAB OLIC PANEL B/C 18.2 ratio Not Available [address], [address], 08/28/2024 14:02:35 08/27/19 25 08/28/2024 COMP. METAB [...] be used in pregn ollie. Not Available [address], [address], 08/28/2024 14:02:35 08/27/19 25 08/28/2024 COMP. METAB OLIC PANEL sodium 137 mmol/ L 136-14 5 Not Available [address], [address], 08/28/2024 14:02:35 08/27/19 25 08/28/2024 COMP. METAB OLIC PANEL potassium 5.6 mmol/ L 3.5-5. 1 high Not Available [address], [address], 08/28/2024 14:02:35 08/27/19 25 08/28/2024 COMP. METAB OLIC PANEL chloride 96 mmol/ L 96-107 Not Available [address], [address], 08/28/2024 14:02:35 08/27/19 25 08/28/2024 COMP. METAB OLIC PANEL anion gap 6.5 5.0-15 .0 Not Available [address], [address], 08/28/2024 14:02:35 08/27/19 25 08/28/2024 COMP. METAB OLIC PANEL CO2 35 mmol/ L 21-32 high Not Available [address], [address], 08/28/2024 14:02:35 08/27/19 25 08/28/2024 COMP. METAB OLIC PANEL calcium 9.7 mg/dL 8.5-10 .3 Not Available [address], [address], 08/28/2024 14:02:35 08/27/19 25 08/28/2024 COMP. METAB OLIC PANEL total protein 6.7 g/dL 6.4-8. 2 Not Available [address], [address], 08/28/2024 14:02:35 08/27/19 25 08/28/2024 COMP. METAB OLIC PANEL albumin 3.4 g/dL 3.4-5. 0 Not Available [address], [address], 08/28/2024 14:02:35 08/27/19 25 08/28/2024 COMP. METAB OLIC PANEL globulin 3.3 g/dL Not Available [address], [address], 08/28/2024 14:02:35 08/27/19 25 08/28/2024 COMP. METAB OLIC PANEL A/G 1.0 ratio 0.8-2. 0 Not Available [address], [address], 08/28/2024 14:02:35 08/27/19 25 08/28/2024 COMP. METAB OLIC PANEL total bilirubin 0.60 mg/dL 0.00-1 .00 Not Available [address], [address], 08/28/2024 14:02:35 08/27/19 25 08/28/2024 COMP. METAB OLIC PANEL AST 11 U/L 0-37 Not Available [address], [address], 08/28/2024 14:02:35 08/27/19 25 08/28/2024 COMP. METAB OLIC PANEL ALT 23 U/L 6-63 Not Available [address], [address], 08/28/2024 14:02:35 08/27/19 25 08/28/2024 COMP. METAB OLIC PANEL alk. phos. 77 U/L 50-136 Not Available [address], [address], 08/28/2024 14:02:35 12/10/19 25 12/09/2024 BASIC METAB OLIC PANEL sodium 140 mmol/ L 133-14 6 Not Available [facility] (Out[facility]) [address] [place], [address], 12/09/2024 15:35:43 12/10/19 25 12/09/2024 BASIC METAB OLIC PANEL chloride 100 mmol/ L 96-108 Not Available [facility] (Outpatient) [address] [place], [address], 12/09/2024 15:35:43 12/10/19 25 12/09/2024 BASIC METAB OLIC PANEL potassium 4.7 mmol/ L 3.3-5. 1 Not Available [facility] (Outpatient) [address] [place], [address], 12/09/2024 15:35:43 12/10/19 25 12/09/2024 BASIC METAB OLIC PANEL CO2 33 mmol/ L 21-35 Not Available [facility] (Outpatient) [address] [place], [address], 12/09/2024 15:35:43 12/10/19 25 12/09/2024 BASIC METAB OLIC PANEL BUN 25 mg/dL 6-19 high Not Available [facility] (Outpatient) [address] [place], [address], 12/09/2024 15:35:43 12/10/19 25 12/09/2024 BASIC METAB OLIC PANEL creatinine 1.20 mg/dL 0.5-1. 5 Not Available [facility] (Outpatient) [address] [place], [address], 12/09/2024 15:35:43 12/10/19 25 12/09/2024 BASIC METAB OLIC PANEL glucose 105 mg/dL 70-99 high Not Available [facility] (Outpatient) [address] [place], [address], 12/09/2024 15:35:43 12/10/19 25 12/09/2024 BASIC METAB OLIC PANEL calcium 9.5 mg/dL 8.4-10 .3 Not Available [facility] (Outpatient) [address] [place], [address], 12/09/2024 15:35:43 12/10/19 25 12/09/2024 BASIC METAB OLIC PANEL eGFR 69 mL/mi n/1.7 3m2 >59 Estim ated glome rular filtr ation rate calcu lated using the CKD-E PI refit equat ion. Not Available [facility] (Outpatient) [address] [place], [address], 12/09/2024 15:35:43 12/10/19 25 12/09/2024 BASIC METAB OLIC PANEL anion gap 12 mmol/ L 10-20 Not Available [facility] (Outpatient) [address] [place], [address], 12/09/2024 15:35:43 02/21/20 23 02/20/2023 XR, chest [...] 3 Final result MARLENE Delvalle GREEN [facility] [address] [place], [address], 02/26/2023 13:10:28 03/03/20 23 03/03/2023 CT abdom [...] abd pain x 4 days MARLENE HARDEN [facility] [address] [place], [address], 03/05/2023 19:48:22 03/19/20 23 03/15/2023 XR, abdom [...] R/o retain ed capsul e MARLENE HARDEN [facility] [address] [facility], [place], [address], 03/24/2023 10:54:12 05/08/20 23 05/01/2023 US, duple x, renal arter y No observ ation record ed. [facility] [address], [place], [address], 05/09/2023 16:58:49 06/05/20 23 06/05/2023 XR, chest [...] MD Final result Pain MARLENE HARDEN [email or web address] [facility] [address] [facility], [place], [address], 06/05/2023 13:14:19 11/08/19 24 11/08/2023 LDCT, chest , for lung cance r scree josué CT CHEST LUNG CANCER SCREEN ING INITIA L Referr ing clinic peng's provid ed indica tion for this examin ation in [facility]: Lung Cancer Screen ing - CURREN [...] MARLENE S GREEN MARLENE S GREEN [email or web address] [facility] [address] [place] [address], [address], 12/17/2023 13:37:56 11/08/19 24 11/08/2023 CT, chest No observ ation record ed. [email or web address] [address], [address], 11/12/2023 13:54:32 08/12/19 25 08/10/2024 elect remigio crandall [email or web address] No observ ation record ed. [email or web address] [facility] [address], [place], [address], 08/13/2024 08:06:29 09/03/19 25 07/19/2024 CT, chest No observ ation record ed. [email or web address] [facility] [address], [place], [place], , 11/09/2024 08:05:51 Result Notes Documentation [...] anemia. R/o retained capsule MARLENE Harden NP [address] [place] [address], [phone], [facility] 03/24/2023 10:54:12 Xr, Chest : XR CHEST [...] result Pain MARLENE S GREEN VENKATA [facility] 06/05/2023 13:14:19 Ldct, Chest, For Lung Cancer Screening : CT CHEST LUNG CANCER SCREENING INITIAL Referring clinician's provided indication for this examination in [facility]: Lung Cancer Screening - CURRENT smoker [...] 11/08/23 Final result MARLENE HARDEN Donita cabrales, [facility] 12/17/2023 13:37:56 Problems Name Problem SNOMED Code Status Onset Date Resolution Date Notes Provider Name and Address Organization Details Recorded Time Perla l hyperten roque [id number] Completed 09/28/2016 Olegario Guy MD [address] [place] [address], [phone] , [facility] 7 11:39:42 Tobacco user 430753474 Active [facility] 11:20:04 Hemarthr osis of hand 65775657 Completed 199909/28/2016 Olegario Guy MD [address] [place] [address], [address] , [facility] 7 11:39:39 Pain of joint 30099492 Active 1999 Marlene Harden NP [address] [place] [address], [address] , [facility] 2 09:20:11 Benign esscornelio l hyperten roque 7276917 Active 2000 Marlene Harden NP [address] [place] [address], [address] , [facility] 2 09:20:11 Precordi al pain 24999608 Completed 200005/27/[address] [facility] 3 02:02:30 Panic disorder without agorapho patel 45055294 Active 2000 Marlene Harden NP [address] [place] [address], [address] , [facility] 2 09:20:11 Chronic obstruct jax pulmonar y disease 53942449 Active 2021 Marlene Harden NP [address] [place] [address], [address] , [facility] 2 10:01:01 Persiste nt atrial fibrilla tion 071285314 Active 2021 cardiove rted 05/29 to NSR Marlene Harden NP [address] [place] [address], [address] , [facility] 3 12:51:06 Congesti ve heart failure 66943090 Active 2021 Marlnee Harden NP [address] [place] [address], [address] , [facility] 2 12:22:15 Chronic respirat ory failure 19132541 Active 2021 Yvette Spears MD [address] [place] [address], [address] , [facility] 2 15:25:36 Coronary atherosc lerosis 807593807 Active 2022 cardiac cath showed occluded RCA well collater alized Marlene Haredn NP [address] [place] [address], [address] , [facility] 3 12:53:58 Alcoholi sm 3106741 Active 2022 Marlene Harden NP [address] [place] [address], [address] , [facility] 3 15:28:03 Dependen ce on suppleme ntal oxygen 93529971943 7 Active 2023 Marlene Harden NP [address] [place] [address], [address] , [facility] 4 15:59:12 Intracra nial hemorrha ge 7864869 Active 2024 Right lentifor m nucleus hemorrha ge Per [facility] discharg e summary 08/03/24 Lilo Quinones RN null, [facility] 5 11:59:30 Left hemipare sis 857121330 Active 2024 Per [facility] discharg e summary 08/03/24 Lilo Quinones RN null, [facility] 5 08:47:28 Sinus bradycar waldemar 61999193 Active 2024 Per [facility] discharg e summary 08/03/24 Lilo Quinones RN null, [facility] 5 08:47:56 Dysphagi a 83629113 Active 2024 Per [facility] discharg e summary 08/03/24 Lilo Quinones RN null, [facility] 5 08:48:28 Achilles tendinit is 75457691 Active 2024 Per [facility] discharg e summary 08/03/24 VENKATA Ko, [facility] 5 08:49:10 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 Procedures Surgical History Date Name Laterality Status Provider Name and Address Organization Details Recorded Time 08/27/19 25 Smoking cessation counseling completed BERYL Avendano [facility] 08/27/2024 14:37:19 08/27/19 25 Post hospital/SNF follow-up/Trans itional Care completed Roz Quinn RN [facility] 09/25/2024 09:07:38 12/21/19 23 Smoking cessation counseling completed Vladimir Mcmillan MA [facility] 12/20/2022 08:47:47 12/21/19 23 Suture/staple Removal completed Marlene Harden NP [address] [place], [address], [facility] 12/20/2022 09:56:39 09/15/19 23 Smoking cessation counseling completed Vladimir Mcmillan MA [facility] 09/14/2022 10:51:32 08/14/19 23 Smoking cessation counseling completed Stephanie Escobar CMA [facility] 08/14/2022 09:16:08 06/12/20 22 Smoking cessation counseling completed Marlene Harden NP [address] [place], [address], [facility] 06/12/2022 11:28:57 06/07/20 22 Smoking cessation counseling completed Yvette Spears MD [address] [place], [address], [facility] 06/07/2022 15:24:40 06/07/20 22 Post hospital/SNF follow-up/Trans itional Care completed BERYL Avendano [facility] 06/07/2022 13:47:36 05/10/20 22 Smoking cessation counseling completed Marlene Harden NP [address] [place], [address], [facility] 05/10/2022 09:00:44 05/10/20 22 Post hospital/SNF follow-up/Trans itional Care completed Marlene Harden NP [address] [place], [address], [facility] 05/10/2022 09:11:11 03/13/20 22 Smoking cessation counseling completed Marlene Harden NP [address] [place], [address], [facility] 03/13/2022 12:23:55 03/06/20 22 Smoking cessation counseling completed Johana Clemons MA [facility] 03/06/2022 10:43:49 02/24/20 22 Smoking cessation counseling completed Marlene Harden NP [address] [place], [address], [facility] 02/23/2022 11:16:02 02/21/20 22 Smoking cessation counseling completed Latosha brown MA [facility] 02/20/2022 09:37:03 01/19/20 22 Smoking cessation counseling completed Marlene Harden NP [address] [place], [address], [facility] 01/18/2022 10:09:38 01/03/20 22 Smoking cessation counseling completed Marlene Harden NP [address] [place], [address], [facility] 01/02/2022 09:26:46 02/18/20 21 Smoking cessation counseling completed Suyapa Thomas MA [facility] 02/17/2021 11:16:12 02/18/20 21 Carbon Monoxide Testing completed Suyapa Thomas MA [facility] 02/17/2021 11:16:12 02/18/20 21 prevention-card iovascular risk reduction counseling completed Johana Clemons MA [facility] 02/17/2021 08:21:35 02/18/20 21 prevention-isacc al alcohol misuse screening completed Johana Clemons MA [facility] 02/17/2021 08:21:35 11/12/19 21 Smoking cessation counseling completed Olegario Guy MD [address] [place], [address], [facility] 11/11/2020 19:57:18 11/12/19 21 Carbon Monoxide Testing completed BERYL Castillo [facility] 11/11/2020 14:39:48 12/30/19 [id number]: Therapeutic Exercise completed Yousif Singh, PT [address] [place], [address], [facility] 12/30/2019 12:30:16 12/30/19 20 [id number]: Manual Therapy completed Yousif Singh, PT [address] [place], [address], [facility] 12/30/2019 12:27:06 12/30/19 Treatment and Advice completed Yousif Singh, PT [address] [place], [address], [facility] 12/30/2019 12:31:36 12/25/19 [id number]: Therapeutic Exercise completed Yousif Singh, PT [address] [place], [address], [facility] 12/25/2019 12:53:38 12/25/19 Treatment and Advice completed Yousif Singh, PT [address] [place], [address], [facility] 12/25/2019 12:34:16 12/18/19 21208: Therapeutic Exercise completed Yousif Singh, PT [address] [place], [address], [facility] 12/18/2019 12:53:54 12/18/19 Treatment and Advice completed Yousif Singh, PT [address] [place], [address], [facility] 12/18/2019 12:51:57 12/14/19 [id number]: Therapeutic Exercise cancelled Yousif Singh, PT [address] [place], [address], [facility] 12/14/2019 12:36:19 12/14/19 20 Treatment and Advice cancelled Yousif Singh, PT [address] [place], [address], [facility] 12/14/2019 12:36:19 12/11/19 20 [id number]: Therapeutic Exercise completed Yousif Singh, PT [address] [place], [address], [facility] 12/11/2019 12:59:46 12/11/19 20 Treatment and Advice completed Yousif Singh, PT [address] [place], [address], [facility] 12/11/2019 12:59:05 12/04/19 20 Smoking Cessation Counselling completed Yousif Singh, PT [address] [place], [address], [facility] [facility]2019 12:58:13 12/04/19 20 Physical Activity Counselling completed Yousif Singh, PT [address] [place], [address], [facility] 12/04/2019 11:52:34 12/04/19 20 16887: PT Eval Low Complexity completed Yousif Singh, PT [address] [place], [address], [facility] 12/04/2019 11:52:34 12/04/19 20 Treatment and Advice completed Yousif Singh, PT [address] [place], [address], [facility] 12/04/2019 12:58:06 11/24/19 20 Smoking cessation counseling completed Marlene Harden NP [address] [place], [address], [facility] 11/24/2019 09:16:51 11/24/19 20 Carbon Monoxide Testing completed Marlene Harden NP [address] [place], [address], [facility] 11/24/2019 09:16:51 11/16/19 20 Smoking cessation counseling completed Flaca Bateman [facility] 11/16/2019 09:21:37 11/16/19 20 Carbon Monoxide Testing completed Flaca Bateman [facility] 11/16/2019 09:21:37 12/12/19 19 Smoking cessation counseling completed Vladimir Mcmillan MA [facility] 12/11/2018 16:17:19 07/16/19 17 Smoking cessation counseling completed Leonarda Bucio MA [facility] 07/16/2016 08:12:10 07/16/19 17 Carbon Monoxide Testing completed Leonarda Bucio MA [facility] 07/16/2016 08:17:04 Imaging Results None recorded. Procedure Notes None recorded. Medical Equipment None Reported. Allergies Allergen ID Allergen Name Allergen Category Reaction Reaction Severity Criticality Documentation Date Start Date Code Code System Note Provider Name and Address Organization Details Recorded Time 884623 Product containin g penicilli n (product) medicatio n other Not available Not available 02/11/2015 39436 8001 SNOMED [facility] 5 11:47:14 959365 prednison e medicatio n chest pain Not available Not available 09/28/2016 8640 RxNorm bad react ion - marion hernandez and has had no react ion, took test no react ion [facility] 3 09:18:03 Medications Name Sig Start [...] 02/27/23: still on hold02/25: on hold from Mark carey until PCP says ok to resume, [...] paramete rs given when to resume- Per [facility] discharg e summary 08/03/24, not verified with [...] % 99 % 106/68 mm[Hg] Sil Plasencia [facility] 5 14:53:03 Date Recorded Body height Body mass index (BMI) Body weight Heart rate Oxygen saturation Oxygen saturation in Arterial blood by Pulse oximetry Systolic And Diastolic Provider Name and Address Organization Details Last Updated DateTime 4 171.45 cm 28.8 kg/m2 30530.9 8 g 60 /min 94 % 94 % 122/68 mm[Hg] Letty Mata [facility] 4 08:19:40 Date Recorded Body height Oxygen saturation Oxygen saturation in Arterial blood by Pulse oximetry Inhaled oxygen flow rate Heart rate Systolic And Diastolic Provider Name and Address Organization Details Last Updated DateTime 5 171.45 cm 97 % 97 % 2 L/min 62 /min 169/94 mm[Hg] Petra Palomares [facility] 5 13:44:30 Date Recorded Body height Body mass index (BMI) Body weight Oxygen saturation Oxygen saturation in Arterial blood by Pulse oximetry Inhaled oxygen flow rate Heart rate Systolic And Diastolic Provider Name and Address Organization Details Last Updated DateTime 4 171.45 cm 28.6 kg/m2 24660.2 9 g 97 % 97 % 2 L/min 61 /min 150/80 mm[Hg] Cassandra Kirk LPN [facility] 4 08:28:29 Date Recorded Systolic And Diastolic Provider Name and Address Organization Details Last Updated DateTime 02/26/2023 138/78 mm[Hg] Marlene Harden NP [address] [place] [address], [phone] 02/26/2023 08:38:12 Date Recorded Body height Body mass index (BMI) Body weight Body temperature Oxygen saturation Oxygen saturation in Arterial blood by Pulse oximetry Inhaled oxygen flow rate Heart rate Systolic And Diastolic Provider Name and Address Organization Details Last Updated DateTime 3 170.18 cm 29.5 kg/m2 66037.7 7 g 96.9 [degF] 96 % 96 % 2 L/min 62 /min 150/76 mm[Hg] Alycia Mcfarland [facility] 3 08:12:03 Date Recorded Body height Body mass index (BMI) Body weight Heart rate Systolic And Diastolic Provider Name and Address Organization Details Last Updated DateTime 06/11/2023 170.18 cm 29.5 kg/m2 80212.17 g 66 /min 130/60 mm[Hg] Misti Dickens [facility] 06/11/2023 15:22:27 Social History Question Answer Notes LastModified by Organizat ion Details LastModified Time Tobacco Smoking Status Current Every Day Smoker [facility] 10/03/2023 08:25:54 Do You Wear A [...] Or The Highest Degree You Have Received? [id number] Information not available 09/05/2023 Have There Been [...] [email or web address] Information not available 06/18/2023 Marital Status [email or web address] Informatio n not available 02/15/2015 What Was [...] Recorded Time Tdap 7 completed Not Available [facility] 07/25/2019 02:34:53 Influenza, split virus, quadrivalent, preservative 6 completed Not Available [facility] 04/30/2022 17:53:42 COVID-19 vaccine, vector-nr, rS-Ad26, PF, 0.5 mL 1 completed Cassandra Kirk LPN null, [facility] 10/03/2023 08:26:47 COVID-19, mRNA, LNP-S, PF, 100 mcg/0.5mL dose or 50 mcg/0.25mL dose 1 completed Cassandra Kirk STORY TELLER null, [facility] 10/03/2023 08:26:47 Influenza, split virus, quadrivalent, PF 2 completed Cassandra Kirk STORY TELLER null, [facility] 10/03/2023 08:26:47 Past Encounters Encounter ID Performer Location Encounter Start Date Encounter Closed Date Diagnosis/Indication Diagnosis SNOMED-CT Code Diagnosis ICD10 Code Diagnosis Note [id number] Jatinder Garcia III, MD Radiology , [facility] [address] [facility] [place] [address] 06/24/2000 16:30:00 07/28/2008 02:02:29 [id number] Jatinder Garcia III, MD , [facility], OFFICE [address] [place] [place] [address] 06/24/2000 15:30:00 07/28/2008 02:02:29 [id number] Jatinder Garcia III, MD , [facility] OFF[facility] [address] [place] [address] 07/02/2000 09:00:00 07/28/2008 02:02:29 [id number] Jatinder Garcia III, MD , [facility] OFFICE [address] [place] [address] [place] [address] 07/25/2000 11:00:00 07/28/2008 02:02:29 [id number] Jatinder Garcia III, MD , [facility], OFFICE [address] [place] [address] [place] [address] 07/30/2000 11:15:00 07/28/2008 02:02:29 [id number] Cj Sheehan MD , [facility], OFFICE [address] [place] [place] [address] 01/20/2001 15:15:00 07/28/2008 02:02:29 [id number] Olegario Guy MD , [facility], [address] [place] [address] 02/11/2015 11:33:50 02/11/2015 12:33:10 Concussion with loss of consciousness [id number] ER Head CT negative. Non-focal, normal neurologic exam. doing neuro checks at home. No memory loss. Continue to monitor for any worsening symptoms. Indication s for UC/ER use reviewed. NSAIDs as needed. Headache [id number] Patien t with continued ZARATE and photo/phon osensitivi ty. Hydrocodon e-Acetamin ophen has been helpful with his ZARATE. Advised to use the medication sparingly. Non-focal, normal neurologic exam. No skin laceration or induration noted. No clinical evidence of increased intracrani al pressure. Vomiting 667582509 Patie nt with continued N/V. Short-term relief with Ondansetro n prn. New prescripti on given. Symptoms due to recent concussion . Explained symptoms possibly aggravated by his opioid pain medication use. No BM as well. Dulcolax suppositor y prescribed as need. Advised to contact the clinic if worsening symptoms. BRAT diet discussed. Follow up early next week. Essential hypertension 57504334 Elevated BP. Previously was on anti-hyper tensive medication s. Off for several years. Will re-evaluat e at this next appointmen t (next week). BP may be due to increased pain. If BP persistent ly elevated at his upcoming visit, will start back on Zestril (his previous medication ). [id number] Olegario Guy MD , [facility], [address] [place] [address] 02/15/2015 16:00:55 02/15/2015 16:44:22 Concussion with loss of consciousness 51643336 Symptoms improving. ER Head CT negative. Non-focal, normal neurologic exam. doing neuro checks at home. No memory loss. Continue to monitor for any worsening symptoms. Indication s for UC/ER use reviewed. NSAIDs as needed. Discussed return to work date 02/21/2015. Headache 17338376 Patien t with improving ZARATE and photo/phon osensitivi ty. W/C form filled out. Hydrocodon e-Acetamin ophen has been helpful with his ZARATE. Advised to use the medication sparingly. Non-focal, normal neurologic exam. No skin laceration or induration noted. No clinical evidence of increased intracrani al pressure. Essential hypertension 62928356 Improved BP. Low salt diet. Monitor for any worsening symptoms. Nausea 461719858 N/V improved with Ondansetro n and Dulcolax prn. Constipati on is also better. Symptoms due to recent concussion . Explained symptoms possibly aggravated by his opioid pain medication use. Advised to contact the clinic if worsening symptoms. [id number] Cj Madsen MD , [facility], [address] [place] [address] 04/23/2016 09:18:45 04/23/2016 09:54:02 Fracture of multiple ribs 2912639 S22.41XA Fracture of pelvis 77969 009 M96.65 f/u with ortho and trauma surgeons- gave him enough oxycodne to last appt on Apr 30- check Mass PAT [id number] Olegario Guy MD , [facility], [address] [place] [address] 05/21/2016 14:48:04 05/21/2016 15:19:48 Fracture of pelvis 07958647 M96.65 Recent pelvic fracture on 04/13/2016 from a fall. Undergone surgery at [facility] for the pelvic fracture (plates and screws). Had follow up appointmen ts with Trauma Surgery and Orthopedic Surgery. Now able to get around with a walker. Using Oxycodone prn (managed by Orthopedic s) Fracture o f multiple ribs 2685812 S22.42XD Normal pulmonary exam without respirator y distress. No deformity noted. Benign ess ential hypertension 6726477 I10 Previously had several elevated BP readings. Previously tolerated Lisinopril . Will restart this medication at 5mg daily. Check BMP. Potential adverse effects of the medication reviewed. [id number] Olegario Guy MD , [facility], [address] [place] [address] 07/16/2016 08:00:41 07/16/2016 08:26:33 Cigarette smoker 77909734 F17.210 Currently smokes about 1/2 PPD. Behavioral modificati on and goal setting discussed. Not currently ready to quit. Tobacco user 026339383 Z 72.0 Fracture of pelvis 86501 009 M96.65 Recent pelvic fracture on 04/13/2016 from a fall. Undergone surgery at [facility] for the pelvic fracture (plates and screws). Had follow up appointmen ts with Trauma Surgery and Orthopedic Surgery. Now able to get around without any ambulatory device. Off Oxycodone now. Benign ess ential hypertension 0193547 I10 Previously had several elevated BP readings. Previously tolerated Lisinopril . This was restarted at his previous visit, but did not continue after the first month. Will prescribe a higher dose of Lisinopril 10mg daily. Advised to take the medication continuous ly. No intoleranc e issues. Potential adverse effects of the medication reviewed. [id number] Olegario Guy MD , [facility], [address] [place] [address] 09/28/2016 11:22:27 09/28/2016 12:01:39 Adult health examination 271714600 Z00.00 See Risk Assessment and Lifestyle Change Counseling section above. Influenza vaccine administer ed today. Tdap vaccine administer ed today. Counseling 055377881 Z71 .9 Benign ess ential hypertension 8041459 I10 BP improved on Lisinopril 10mg daily. Advised to take the medication continuous ly. No intoleranc e issues. Potential adverse effects of the medication reviewed. Screening for malignant neoplasm of colon 548632553 Z12.11 Active or passive immunization 919189921 Z23 [id number] Olegario Guy MD , [facility], [address] [place] [address] 12/11/2018 16:04:16 12/11/2018 16:30:36 Cigarette smoker 78079511 F17.210 Discussed/ enc smoking cessation - pt not ready to even consider Tobacco user 355727143 Z 72.0 Benign ess ential hypertension 4268503 I10 Pt has been off his meds for about 2 yrs - lost insurance. Refilled as below. Enc healthy diet/exerc ise habits. Will return in 1 month for BP check and get labs prior to visit. Impotence 414217968 N52. 9 Wants refills on sildenafil that he has used in the past without any adverse effects. Rx sent. [id number] Olegario Guy MD , [facility], [address] [place] [address] 11/16/2019 09:18:04 11/17/2019 10:33:50 Cigarette smoker 37647581 F17.210 did not discuss today - w/c visit Tobacco user 502191498 Z 72.0 Pain of le ft shoulder joint 9569912767 8972625 M25.512 W/C injury that started over a [...] med and given the okay to return. [id number] Harmeet Elliott MD Sports Medicine, [address] [address] 11/23/2019 11:05:21 11/24/2019 08:25:07 Pain in left arm 735490962 M79.972 Yousif is a 54-year-ol d male with [...] the time was spent in counseling . [id number] Olegario Guy MD , [facility], [address] [place] [address] 11/24/2019 08:55:54 11/25/2019 09:09:00 Cigarette smoker 66274753 F17.210 strongly enc smoking cessation - pt states not ready and deferred any smoking cessation aids Tobacco user 945581724 Z 72.0 Benign ess ential hypertension 4031649 I10 Currently on lisinopril 20 mg and [...] month. Pain of le ft shoulder joint 9894274402 4222331 M25.512 W/C injury that started over a [...] risks for CAD. Atypical chest pain 1025 77721 R07.89 Pain that radiates to scapula and left axilla - can occur at rest but also with exertion - unclear if this pain is coming from his shoulder injury or if could have cardiac component - enc pt to get ETT in the near future - he should check with [facility] to see if qualifies for free care as he has no insurance right now and states doesn't qualify for [facility]. Emphasized the importance of getting this testing done with pt and also of smoking cessation and getting htn under better control. Enc. 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 [...] Include: Therapeuti c exercise and manual therapy [id number] Yousif Singh , LISA Physical Therapy, [address] [address] 12/11/2019 12:31:51 12/11/2019 14:14:31 Pain of left shoulder joint 8870315964 6756648 M25.512 54 year old male with findings [...] 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 [...] Include: Therapeuti c exercise and manual therapy [id number] Yousif Singh , L[facility], [address] [address] 12/18/2019 12:33:36 12/18/2019 13:41:50 Pain of left shoulder joint 1733896044 7143480 M25.512 54 year old male with findings [...] 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 [...] Include: Therapeuti c exercise and manual therapy [id number] Yousif Singh , PT Physical Therapy, [address] [address] 12/25/2019 12:33:04 12/25/2019 12:58:20 Pain of left shoulder joint 0898272513 7446972 M25.512 54 year old male with findings [...] 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 [...] Include: Therapeuti c exercise and manual therapy [id number] Yousif Singh , L[facility], [address] [address] 12/30/2019 12:23:34 12/30/2019 13:28:36 Pain of left shoulder joint 9841159488 5233472 M25.512 54 year old male with findings [...] 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 Tobacco user 782613049 Z 72.0 Benign ess ential hypertension 9461486 I10 Currently on Lisinopril 30mg. Will schedule an in-person evaluation this week to check BP. Will need BMP. Spondylolisthesis 687461 003 M43.10 Last visit this provider was [...] to increase Gabapentin to 600mg/300m g/900mg. Dyspnea 244161618 R06.00 Sporadic care due to loss of [...] . Indication s for UC/ER use reviewed. [id number] Olegario Guy MD , [facility], [address] [place] [address] 11/11/2020 14:31:14 11/14/2020 09:34:44 Cigarette smoker 24342813 F17.210 Encouraged smoking cessation using goal setting and behavioral modificati on. Tobacco user 395044861 Z 72.0 Dyspnea 260662828 R06.00 Sporadic care due to loss of [...] Albuterol Rx given. Benign ess ential hypertension 4589306 I10 Currently on Lisinopril 30mg. Borderline high BP. Continue to monitor. Check BMP. Spondylolisthesis 630706 003 M43.10 Last visit this provider was [...] Advised to increase Gabapentin to 600mg/300m g/900mg. [id number] Olegario Guy MD , [facility], [address] [place] [address] 11/14/2020 14:33:25 11/16/2020 08:25:23 Dyspnea 878145860 R06.00 Sporadic care due to loss of [...] cost prohibitiv e. Benign ess ential hypertension 7739379 I10 Currently on Lisinopril 30mg. Borderline high BP. Continue to monitor. Check BMP. Spondylolisthesis 180285 003 M43.10 Last visit this provider was [...] Advised to increase Gabapentin to 600mg/300m g/900mg. [id number] Olegario Guy MD , [facility], [address] [place] [address] 02/17/2021 11:13:55 02/17/2021 12:05:07 Adult health examination 251275436 Z00.00 Counseling 937515353 Z71 .9 including cardiovasc ular risk reduction counseling Depression screening 171 165560 Z13.31 depression screening tool administer ed, entered into emr, scored and discussed, time greater than 7.5 minutes. Pt scores high on screening, admits feeling down d/t health issues, being out of work. Revisit at next appt - considerin g wellbutrin which could help with moods as well as with smoking cessation Screening for alcohol abuse 781761032 Z13.39 no ETOH consumptio n Essential hypertension 80136860 I10 Not at goal- continue with lisinopril 30mg and start amlodipine 5mg, work on diet and exercise as discussed. F/U for BP check in 3-4 wks Cigarette smoker 8112436 7 F17.210 strongly enc smoking cessation - pt states not ready and deferred any smoking cessation aids Dyspnea 124787224 R06.00 start combivent QID and continue with ventolin PRN and flovent BID. Schedule PFT. Considered prednisone but pt has bad allergy. Pt aware that has COPD and that smoking is contributi ng to his sx. Had normal cxr in November. Hearing loss 84561928 H9 1.90 Notes hearing loss when there is any background noise - referred for audiology eval Chronic back pain 334256 002 M54.9 Upper back and neck - chronic. W/C related. Followed by physiatry. No real improvemen t and told not a surgical candidate. Cont. current meds and f/u with physiatry as planned [id number] Johnnie Chaparro MD , [facility], [address] [place] [address] 01/02/2022 08:59:11 01/02/2022 09:41:39 Tobacco user 934292826 Z72.0 Strongly enc smoking cessation - not ready but enc to start tapering/c utting back Dyspnea 064591112 R06.00 Continue combivent and flovent as prescribed [...] exac erbation of chronic obstructive pulmonary disease 831755069 J44.1 Can't take oral prednisone d/t side effects. Will treat with doxy d/t complaints of copious secretions every day. Cont. inhalers as prescribed and f/u next week with me. Essential hypertension 82844993 I10 Better on repeat - not taking amlodipine every day (fills sporadical ly). Enc take daily. Consider adding HCTZ next visit if not at goal. Return next week as planned [id number] Johnnie Chaparro MD , [facility], [address] [place] [address] 01/18/2022 09:49:15 01/19/2022 09:15:34 Influenza vaccination declined 652794289 Z28.21 Tobacco user 610110968 Z 72.0 Strongly enc smoking cessation - see below Benign ess ential hypertension 2241638 I10 Currently on lisinopril 30 mg and amlodipine 5 mg - bp improved, still not optimal but was SOB when took it. Will repeat next month when he returns for wv Chronic ob structive pulmonary disease 37380663 J44.9 Worsening SOB x months. Can't work. [...] pulmonary. Enc cont. current inhalers for now. [id number] Johnnie Chaparro MD , [facility], [address] [place] [address] 02/20/2022 09:32:21 02/20/2022 14:39:29 Adult health examination 254651855 Z00.00 Counseling 843074383 Z71 .9 including cardivascu lar risk reduction counseling Depression screening 171 620071 Z13.31 depression screening tool administer ed, entered into emr, scored and discussed, time greater than 7.5 minutes Screening for alcohol abuse 116567107 Z13.39 no ETOH consumptio n Essential hypertension 87600373 I10 CLose to goal - meds will be changed now with new dx a-fib Chronic ob structive pulmonary disease 00190916 J44.[address] Xiong , pulmonary, yesterday. Now on trelegy but has only used once. Needing combivent inhaler multiple times/day and very SOB with exertion. Found to be in A-fib. Sent to ER. Tobacco user 002172445 Z 72.0 Strongly enc smoking cessation - has patches to use when ready Edema of l ower extremity 798473833 R60.0 Mild now - worse later in day Dyspnea on exertion 6084 5006 R06.09 Suspect from both his COPD/asthm a and cardiac cause. Found to be in new a-fib. Will need echo eventually - sent to ER Palpitations 67791507 R0 0.2 Atrial fibrillation 4943 6004 I48.91 New dx - pt now with low O2 sat, mild pedal/ankl e edema and increased sob - sent to ER for evaluation /treatment - records sent [id number] Johnnie Chaparro MD , [facility], [address] [place] [address] 02/23/2022 10:47:26 03/02/2022 13:36:38 Tobacco user 787818402 Z72.0 Strongly enc smoking cessation - has [...] as planned. Edema of l ower extremity 379290247 R60.0 much improved since started metoprolol and took 3 days of lasix. F/u prn worsening sx. Chronic ob structive pulmonary disease 09751193 J44.[address] Xiong , pulmonary recently. Now on trelegy. O2 sat improved since treated for the a-fib. Did trial prednisone today (20 mg given by pulmonary to see if would help with his SOB - thought was allergic) and so far no adverse effects. Would hold off on further prednisone until he meets with cardiologi st and has f/u with pulmonary. [id number] Nataly Leslie DO , [facility], [address] [place] [address] 03/06/2022 10:29:54 03/06/2022 11:22:12 Smoker 03259903 F17.210 didnt discuss LDCT today Tobacco user 857640778 Z 72.0 Discussed and encourage smoking cessation. Patient contemplat ing but not ready. Encourage follow up if needing assistance with this.Is aware of importance 3 min counseling Persistent atrial fibrillation 423805662 I48.19 in AF today (new dx , tolerating xarelto and metop)Has appt with Cards in next weekspulse irreg but denies SOBEF on TTE 02/2022 25-30%On metoprolol , dose was incr from 50 to 100 mg recent weeksHR today is in 120sHas FU appt in one week ; may need to add another agent for improved rate control Chronic ob structive pulmonary disease 58718450 J44.9 with asthma overlapDxd in 2019pt feeling overall well, denies SOB/DOEO2 is 87Is not on supplement al C4Vwvroa to close follow up here in the office, < 1 wk to monitor closelyRec ently started trial of Trelegy, saw pulm 2 wks agoto have rpt CT Scan 06/2022 for mult nodules, but all < 5 mm Edema of l ower extremity 542340813 R60.0 will add lasix , short termdiscus sed need to monitor K if needing this more long termFU next week in office Hypoxia 082358193 R09.02 has had intermitte nt sats < 90 in past 2 yrsFU next week, under care of Pulm as wellMay need walk testing; pt does NOT have interest in suppl 02 [id number] Johnnie Chaparro MD , [facility], [address] [place] [address] 03/13/2022 11:58:25 03/19/2022 13:36:23 Tobacco user 726953235 Z72.0 Strongly enc smoking cessation - has patches to use when ready - is moving closer to feeling ready to quit Atrial fibrillation 4943 6004 I48.91 Accidental ly doubled up on the xarelto, not the metoprolol which was what he had been instructed to do - will send new rx - f/u if having trouble filling this early Chronic ob structive pulmonary disease 24304080 J44.[address] Xiong , pulmonary recently. Now on trelegy but was given samples and is out. New rx sent. Has f/u appt later this week with him. Breathing improved and O2 sat today 93% Benign ess ential hypertension 6696887 I10 Currently on lisinopril 30 mg and [...] with higher dose metoprolol Congestive heart failure 93358404 I50.9 Much improved on Furosemide daily. Edema has resolved, breathing better. Will continue. Check bmp today and f/u with cardiology as planned. F/u here 3 months, sooner prn Persistent atrial fibrillation 374963745 I48.19 Continue xarelto but 1/day (Had been taking 2). No s/s bleeding. Double up on the metoprolol which should help with rate control. F/u with cardiology as planned. [id number] Yvette Spears MD , [facility], [address] [place] [address] 05/10/2022 08:27:45 05/10/2022 13:41:09 Tobacco user 542320885 Z72.0 Strongly enc smoking cessation - has patches to use when ready - is moving closer to feeling ready to quit - feels will quit completely very soon. Benign ess ential hypertension 7208245 I10 At goal. Tono current meds. Enc. continue current meds, healthy diet/exerc ise habits and f/u as planned for [place] in 6 mos. Chronic ob structive pulmonary disease 20750047 J44.9 Has f/u with pulmonary later this month. Using trelegy as prescribed , proair less frequently than previously . Still on prednisone taper. Enc smoking cessation and f/u prn worsening sx Congestive heart failure 06267125 I50.9 Will try to get him a scale. No edema. Lungs clear other than some sc wheezes. Continue low salt diet, O2, and f/u with cardiology as planned. Has upcoming labs scheduled. Persistent atrial fibrillation 195710191 I48.19 Continue xarelto as prescribed . Emphasized no ASA/NSAIDS . F/u with cardiology Chronic neck pain 978504 6473 107 M54.2 Seen at [facility] - they are prescribin g his pain meds. [id number] Yvette Spears MD , [facility], [address] [place] [address] 06/07/2022 14:53:14 06/07/2022 15:53:36 Tobacco user 407617320 Z72.0 working on cutting back using nicotrol prn Chronic ob structive pulmonary disease 30611785 J44.9 stable on meds Persistent atrial fibrillation 277204817 I48.19 cardiovert edno sxfollowup cardio Chronic re spiratory failure 07867791 J96.10 on oxygen [id number] Yvette Spears MD , [facility], [address] [place] [address] 06/12/2022 10:30:31 06/12/2022 14:10:31 Essential hypertension 59452247 I10 Has been at goal - enc cont current meds and f/u with cardiology as planned Chronic ob structive pulmonary disease 12953380 J44.9 Improved on Trelegy - has nebulizer to use prn, albuterol MDI for less severe sx. Strongly enc smoking cessation. Now is almost 100% O2 dependent and would like to get off the O2. Reviewed with pt that continued smoking will decrease the likelihood of him being able to stop the O2. Cont f/u with pulmonary as planned. Tobacco user 492940135 Z 72.0 Strongly enc smoking cessation - has patches to use when ready - is moving closer to feeling ready to quit - feels will quit completely very soon. Congestive heart failure 55238860 I50.9 Lasix dose decreased recently to 40 mg QD. No edema. Continue low salt diet, O2, and f/u with cardiology as planned. Has upcoming labs scheduled. Persistent atrial fibrillation 923866711 I48.19 Continue xarelto as prescribed . Emphasized no ASA/NSAIDS . F/u with cardiology [id number] Nataly Leslie DO , [facility], [address] [place] [address] 08/14/2022 09:12:34 08/14/2022 09:59:15 Essential hypertension 27945539 I10 Improved on repeat- enc cont current meds and f/u with cardiology as planned Tobacco user 853296765 Z 72.0 We discussed your smoking today for more than 3 minutes. Cigarette use is the leading cause of preventabl e disease, disability , and in the [place]. We talked about tools and medication s available to help you in smoking cessation. We discussed utilizing our smoking cessation career coach and online resources. Your personal goal: continue to wean off of cigarettes completely Chronic ob structive pulmonary disease 98679936 J44.9 See HPI for detailed history Stable on O2 continuous ly.F/u with pulmonary as planned and cont. current meds Persistent atrial fibrillation 396202140 I48.19 Continue xarelto as prescribed . Emphasized no ASA/NSAIDS . F/u with cardiology Congestive heart failure 69262375 I50.22 Has cardiomyop athy and supposed to be getting implanted defibrilla tor. EKG done today and copy will be faxed to cardiac surgeon (Dr. Chavarria) at [facility]. Pre-surger y evaluation 023686030 Z01.818 Chronic re spiratory failure 26898552 J96.10 Letter given again for Transition al assistance stating pt disabled and on continuous O2. [employer] handicappe d rios paperwork also completed and given to pt. Enc cont f/u with pulmonary, continue current meds and f/u prn worsening sx [id number] Yvette Spears MD , [facility], [address] [place] [address] 09/14/2022 10:41:40 09/14/2022 13:49:51 Tobacco user 183045731 Z72.0 We discussed your smoking today for more than 3 minutes. Cigarette use is the leading cause of preventabl e disease, disability , and in the [place]. We talked about tools and medication s available to help you in smoking cessation. We discussed utilizing our smoking cessation career coach and online resources. Your personal goal: continue to work towards complete smoking cessation Benign ess ential hypertension 4855581 I10 At goal. Tono current meds. Enc. continue current meds, healthy diet/exerc ise habits and f/u as planned in November Chronic ob structive pulmonary disease 36093801 J44.9 See HPI for detailed historySta ble on O2 continuous ly when active - able to remove when sitting quietly, resting. .F/u with pulmonary as planned and cont. current meds Congestive heart failure 29020801 I50.22 Reviewed recent cardiology consult note. EF improved to 35-40% and no longer is considered candidate for an implantabl e defib. F/u with cardiology and planned or if having increased SOB/edema. Persistent atrial fibrillation 449432406 I48.19 Continue xarelto as prescribed . Emphasized no ASA/NSAIDS . F/u with cardiology . Reviewed c/o bleeding gums. Enc pt to f/u with dentist. [id number] Yvette Spears MD , [facility], [address] [place] [address] 12/20/2022 08:38:52 12/20/2022 11:20:34 Tobacco user 940937099 Z72.0 We discussed your smoking today for more than 3 minutes. Cigarette use is the leading cause of preventabl e disease, disability , and in the [place]. We talked about tools and medication s available to help you in smoking cessation. We discussed utilizing our smoking cessation career coach and online resources. Your personal goal: Work on cutting down on cig smoking and contact me if needing help with this Benign ess ential hypertension 6114980 I10 Not at goal. Had beta emre decreased recently by cardiology . Also on furosemide and Entresto (but hasn't taken furosemide today). ? consider increasing entresto next visit if not at goal. Keep track of home BP - reviewed goal of <130/80 Chronic ob structive pulmonary disease 63046610 J44.9 Stable on O2 continuous ly when active - able to remove when sitting quietly, resting. .F/u with pulmonary as planned and cont. current meds. Will have our nurses work on trying to get him a portable O2 concentrat or. Strongly enc smoking cessation Congestive heart failure 91675452 I50.22 Reviewed recent cardiology consult note. EF improved to 35-40% and no longer is considered candidate for an implantabl e defib. F/u with cardiology as planned or if having increased SOB/edema. Coronary atherosclerosis 254638928 I25.10 Denies any recent CP Persistent atrial fibrillation 525296340 I48.19 Continue xarelto as prescribed . Emphasized no ASA/NSAIDS . F/u with cardiology . Reviewed c/o bleeding gums. Enc pt to f/u with dentist. Laceration of forehead 577021448 S01.81XA Wound with some scabbing but no s/s infection. Sutures removed as above. Don't scrub off scab - let it come off naturally. F/u prn if not continuing to heal or any other concerns [id number] Yvetet Spears MD , [facility], [address] [place] [address] 02/26/2023 07:55:22 02/26/2023 08:40:00 Tobacco user 184085159 Z72.0 We discussed your smoking today for more than 3 minutes. Cigarette use is the leading cause of preventabl e disease, disability , and in the [place]. We talked about tools and medication s available to help you in smoking cessation. We discussed utilizing our smoking cessation career coach and online resources. Your personal goal: keep working to quit - has cut back and congratula tracy Congestive heart failure 47104450 I50.22 Tried to get entresto refilled from cardiology but has gotten no response - completely out of meds. New rx sent - may need PA Atrial fibrillation 4943 6004 I48.91 Seems to be in NSR today. Needs refills on the xarelto which is on hold until he has repeat CBC later this week Anemia 807778993 D64.9 Needs close monitoring of cbc. Has f/u with GI today to get video endoscopy If cbc stable or improving on 02/28, will restart his xarelto and repeat cbc weekly. Cont. to hold the ASA. Pt has had no s/s bleeding, no black stools or abdominal pain. Benign ess ential hypertension 8133141 I10 Not at goal but hasn't taken meds today and is out of his entresto. Cont. to monitor at home. Reviewed goal of <130/80. Chronic re spiratory failure 77994213 J96.10 Requires 24 hour O2. Will try again to get him a portable O2 concentrat or [id number] DO KIANNA Calvert, [facility], [address] [place] [address] 06/11/2023 15:11:42 06/11/2023 17:38:40 Benign essential hypertension 8831007 I10 At goal. Continue current meds, ETOH abstinence and f/u as planned. Coronary atherosclerosis 517068530 I25.10 Denies any recent CP Persistent atrial fibrillation 528663339 I48.19 Continue xarelto as prescribed . Emphasized no ASA/NSAIDS . F/u with cardiology as planned Chronic ob structive pulmonary disease 47755233 J44.9 Stable on O2 continuous ly when active - able to remove when sitting quietly, resting. .F/u with pulmonary as planned and cont. current meds. Congestive heart failure 39934366 I50.22 Reviewed cardiology consult notes. EF had improved to 35-40% and no longer is considered candidate for an implantabl e defib. F/u with cardiology as planned or if having increased SOB/edema. Tobacco user 483866425 Z 72.0 Did not discuss today as pt left in middle of appt to go drive son to work Alcoholism 3954193 F10.2 0 Tried to get into detox [...] and GF could check out options at [employer] for support with sobriety. Unfortunat vivek pt left in middle of appt - had to drive son to work. Enc GF to have him f/u if needing additional help or other concerns. [id number] Yvette Spears MD , [facility], [address] [place] [address] 09/05/2023 07:42:15 09/05/2023 08:53:11 Adult health examination 549061343 Z00.00 see risk assesment and counseling section Depression screening 171 287140 Z13.31 depression screening tool administer ed Screening for alcohol abuse 556566213 Z13.39 Alcohol use screening tool administer ed Screening for malignant neoplasm of prostate 750033963 Z12.5 PSA testing for ages 55-69 risks [...] cessation. We discussed utilizing our smoking cessation career coach and online resources. Your personal goal: Working on cutting back and eventually quitting. Wants to try bupropion which we discussed could also help with his moods/ener gy level - F/u 1 month to reevaluate Vaccination not done 268 7745740 9108 Z28.29 Patient declined the flu vaccine at this time. Chronic ob structive pulmonary disease 38115026 J44.9 Doing better - using O2 at night and prn during the day with exertion, walking longer distances. States breathing better if doubles up on his oxycodone which is prescribed by physiatry. Enc to f/u with them to discuss if increasing dose is appropriat e. Sees pulmonary and has repeat CT chest scheduled for October Congestive heart failure 95677790 I50.22 Reviewed cardiology consult notes. EF had improved to 35-40% and no longer is considered candidate for an implantabl e defib. F/u with cardiology as planned or if having increased SOB/edema. Coronary atherosclerosis 911823117 I25.10 Denies any recent CP - f/u with cardiology Alcoholism 6314733 F10.2 0 Quit drinking in Jun. with no assistance - congratula tracy and enc continued sobriety Benign ess ential hypertension 9414821 I10 At goal. Continue current meds, ETOH abstinence and f/u as planned. Chronic pain 79642364 G8 9.29 Due to neck, low back and other joint pains. Followed at [facility]. They have been prescribin g oxycodone for him x yrs - he rarely sees them. Recently has tried increasing the dose (doubles up in the a.m.). Discussed needs to go back to [facility] for a visit to discuss continued use of narcotics which he feels are helping him to remain active Persistent atrial fibrillation 353598629 I48.19 Continue xarelto as prescribed . Emphasized no NSAIDS. F/u with cardiology as planned [id number] Yvette Spears MD , [facility], [address] [place] [address] 10/03/2023 08:20:38 10/04/2023 11:43:54 Nicotine dependence 86318697 F17.200 We discussed your smoking/va ping today for more than 3 minutes. Cigarette/ pod use is the leading cause of preventabl e disease, disability , and in the [place]. We talked about tools and medication s available to help you in smoking/va ping cessation. We discussed utilizing our smoking cessation career coach and online resources. Your personal goal:Try your nicotrol inhaler again, cont. the wellbutrin Benign ess ential hypertension 2752987 I10 Not at goal but hasn't taken meds today. Enc go home and take them, .cont ETOH abstinence and f/u as planned with new PCP in 6 weeks. Chronic ob structive pulmonary disease 32503613 J44.9 Doing better - using O2 at night and prn during the day with exertion, walking longer distances. Sees pulmonary and will get repeat CT chest scheduled for October Congestive heart failure 38619304 I50.22 Reviewed cardiology consult notes. EF had improved to 35-40% and no longer is considered candidate for an implantabl e defib. F/u with cardiology as planned or if having increased SOB/edema. Coronary atherosclerosis 799286954 I25.10 Denies any recent CP - f/u with cardiology Alcoholism 5011669 F10.2 0 Quit drinking in Jun. with no assistance - relapsed about a week ago for 3-4 days but now back on track - enc f/u with [employer] and/or AA which he is planning to do - enc. cont. sobriety Atrial fibrillation 4943 6004 I48.91 Seems to be in NSR today. Refilled his amiodarone - enc f/u with cardiology as planned [id number] CJ GONZALEZ, , [facility], [address] [place] [address] 08/27/2024 14:30:53 09/29/2024 18:46:06 Coronary atherosclerosis 549998840 I25.10 Hemorrhagi c StrokeExpe rienced brain bleeding causing fatigue and weakness. Frequent hospitaliz ations and rehabilita tion have impacted health.- Coordinate cardiology follow-up to adjust medication s, especially metoprolol , for heart rate and blood pressure management .- Continue physical and occupation al therapy to enhance strength and mobility.- Monitor for fluid retention and adjust diuretics as needed. Congestive heart failure 98733005 I50.22 Heart Failure Heart failure managed with Entresto and metoprolol . Low heart rate contribute s to fatigue and weakness. - Adjust metoprolol to 25 mg extended release to increase heart rate. - Monitor heart rate and symptoms closely. - Coordinate with cardiology for further management . Anemia 674473970 D64.9 f/u cbc. surveillan ce. Epistaxis Epistaxis [...] Rogers Member ID Guarantor Name 12/07/2024 1 [facility] Yousif Orellana [id number] Yousif Orellana 12/07/2024 1 [place] [employer] Yousif Orellana [id number] Yousif Orellana 12/07/2024 2 [place] [facility] Yousif Orellana [id number] Yousif Orellana 12/07/2024 1 [place] [facility] PLAN Yousif Orellana [id number] Yousif Orellana 12/07/2024 1 [place] [facility] Yousif Orellana [id number] Yousif Orellana 12/07/2024 1 [place] PRIOR TO 2022 - [facility] (MEDICAID) Yousif Orellana [id number] Yousif Orellana 12/07/2024 1 [facility] - DOS ON OR AFTER 2022 - [facility] (MEDICAID REPLACEMENT - HMO) Yousif Orellana [id number] Yousif Orellana 06/11/2023 [employer]ELERS [employer] [facility] Yousif [place] Reyna 12/07/[address] 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[employer] Yousif Orellana 12/07/2024 1 [facility] (O) Yousif Orellana [id number] Yousif Orellana 12/07/2024 1 [facility] (O) [id number] Yousif Orellana [id number] Yousif Orellana 11/24/2019 [employer]ELERS [employer] Yousif Orellana Notes Date Note Type Note [...] from cardiology and they haven't done benji/vmg-smoking [id number] bypatient.Notes:about 12 cigs/day - had been 1-2 [...] they denied it Marlene Harden NP [address] [place], [address], [facility] 02/26/2023 13:17:15 3 text/html a/vmg-smoking [id number] bypatient.Notes:Didn't discuss today - strong smell of cigs on his person - pt here to discuss problems with ETOH dependency Went to ER to try and get detox for ETOH - Given IV and librium to take at home - called around to try and get a bed - Got a bed at [facility] after waiting for 6 hours 2 days after going to ER - After that they were told they couldn't keep him, he was too medically complicated - was going into detox with GF (they both had beds) so they both left, checked into a motel and drankWent to [facility] on the weekend - pt was confused d/t high CO2 levels - was given CPAP - they d/c'd him last night -now has CPAP at homeETOH consumption prior to this 5-17 drinks/day - more when GF's kids were away for the weekend (they are 16 and 9 y.o.)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 if shouldHaving some dry heaving [...] back pain (oxycodone) Marlene Harden NP [address] [place], [address], [facility] 06/12/2023 11:08:05 4 text/html Risk Assessment and [...] confident in ability to self manage conditiona/vmg-smoking ofkipprpg3Xeiadwso bypatient.Notes:about 12 cigs/day - had been 1-2 ppd - is working on quitting gradually - had patches in hospital - pt is here for annual wellness.Dental work - had bleeding after because of his xarelto - went to [facility] - detoxed self - hasn't had a drink since weather causes increased pains in back/yosetv5Pufri - does better if takes double dose of oxycodone - will run out - being able to move more helps his breathingHx DJD in neck, hx broken bones from injuries, knees are shot - followed at [facility] - they prescribe but don't do anything else for himSees cardiology soonDr. Inga is pulmonary - has CPAP - not using since dental work but does use O2 at - rarely uses O2 during the dayHas therapist for his depression/ETOH Marlene Harden, [employer] [address] [place] [address] [place], [address], [facility] 09/05/2023 11:52:20 4 text/html a/vmg-smoking [id number] bypatient.Notes:Has cut back to 1/2 ppd or less - on wellbutrin to help with smoking cessation - has nicotrol inhaler but not using currently Patient presents to the office for 1 month f/u Sees Dr. Morales - cardiologyDr. Xiong - pulmonary - due for repeat CT Scan October Using O2 with exertion prn Chronic pain - followed at [facility] - on fpc narcotics for this - neck/back - getting facet injections soon - hoping that new PCP will take over prescribing his narcotics ETOH - lapsed last week for few days - none now for 5 days - thinking of joining group AA or [employer] Marlene Harden NP [address] [place], [address], [facility] 10/03/2023 09:23:31 5 text/html In patient f/uPt released from [facility]osp [facility]hab. 08/08. Keppra and lisinopril doses cannot be verified. Feels better today but fatigued and dehydrated. CC Note: Pt was admitted to [facility] on 08/09/24 D/C and transferred to [facility] on 08/13/24. Pt was at [facility] on 08/13/24 and left [facility] on 08/24/24.Dx- CHF w/ reduced ejection fraction/Intraparenchymal hematoma of brain/Midline shift of brain/vasogenic brain/A fib/Asterixis/RSV/COPD.BM C: started pt on Lisinopril 10mg daily and Prednisone 20mg two tabs daily for 5 days, Changed xarelto 20mg on hold and to restart on 08/26/24.Pt was transferred to [facility]. Left [facility] on 08/24/24.Called [facility], spoke to nurse [...] the frequency of hospitalizations. CJ GONZALEZ, DO [address] [place] [address], [phone], [facility] 09/28/2024 10:41:04
--- OUTSIDE RECORDS SUMMARY | 2025-01-25 06:01 | XMS_ITS | Clinical Summary ---
Author Organization [facility] Facility Address [address] [place] [address] Care Team Providers Care Transportation Manager Name Role Phone Marlene Harden NP Primary Care Provider [phone] Social History Tobacco Use Types Packs/Day Years [...] patient's age to complete this topic Insurance [facility] Plan Care Teams Transportation Manager Relationship Specialty Start Date End Date Marlene Harden NP [address] [place] [address] PCP - General Nurse Practitioner 03/05/23
[2025-01-25 07:06] LABS: Hematocrit 35.7 % (42.0-52.0); Hemoglobin 11.1 g/dl (14.0-18.0); Imm Gran Abs Auto 0.24 X10*3/uL (0.00-0.03); Imm Gran Pct Auto 2.4 % (0.0-0.4); Lymphocytes Absolute Auto 2.5 X10*3/uL (1.2-4.9); Mean Corpuscular HGB Conc 31.1 g/dl (31.0-36.0); Mean Corpuscular Hemoglobin 25.9 pg (27.0-33.0); Mean Corpuscular Volume 83.4 fL (80.0-98.0); NRBC Abs Auto 0.000 X10*3/uL (0.0-0.012); NRBC Pct Auto 0.0 /100WBC (0.0-0.2); Platelet Count 319 X10*3/uL (160-400); Red Blood Count 4.28 X10*6/uL (4.60-5.80); White Blood Count 10.1 X10*3/uL (4.8-10.8)
[2025-01-25 07:08] LABS: Anion Gap 12 (12-20); Blood Urea Nitrogen 21 mg/dL (9-16); Calcium 9.0 mg/dL (8.4-10.2); Carbon Dioxide 31 mmol/L (22-29); Chloride 103 mmol/L (96-108); Estimated Glomerular Filt Rate 56; Potassium 4.4 mmol/L (3.3-5.1); Sodium 142 mmol/L (135-145)
== END 2025-01-25 05:58 | disposition home or self-care (01) ==
LOC: HO.MMNH1L 05:57
PROVIDERS: Visit Provider Family Medicine
DX: J96.21 Acute and chronic respiratory failure with hypoxia (principal); J44.1 Chronic obstructive pulmonary disease with (acute) exacerbation; E46 Unspecified protein-calorie malnutrition
CPT/HCPCS: 36415; 80048; 85025

== ENCOUNTER 2025-02-01 06:13 | Outpatient (REF) | payer MEDICARE, SELFPAY ==
[2025-02-01 05:52] LABS: MANUAL DIFF FLAG NO
--- OUTSIDE RECORDS SUMMARY | 2025-02-01 06:17 | XMS_ITS | Encounter Summary ---
Author Organization [facility] Address [address] [place] [address] Phone Care Team Providers Care High School Academic Coach Name Role Phone Dereck Marlene Delvalle NURSE PRACTITIONER PER DIEM Primary Care Provider Dennis Temple MBBS Unavailable Gabriela Barnhart ZOOGLER Unavailable Cj Meyer DO Primary Care Provider [phone] Encounter Details Date Type Department Care Team (Late st Contact Info) Description 10/03/2023 Procedure Pass [facility], Ct Scan - [address] [address] Social History Tobacco Use Types Packs/Day Years [...] Description 03/16/2025 9:00 AM EDT Office Visit [facility] Pulmonary, Allergy and Critical Care Medicine 10 [place] [address] Conner Sneed MD [address] [address] [email or web address] 03/29/2025 10:15 AM EDT Office Visit [facility] [address] [place] [address] 3rd [facility], [address] [place] [address] Zack Sanchez DO [address] [place] [address] Scheduled Procedures Name Priority Associated Diagnoses Date/Ti me 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 IN STAFF DEVELOPMENT MANAGER Systolic congestive heart failure, unspecified HF chronicity [...] Time PHQ-2 Depression Total Score: 2 03/28/20 22 11:32 AM EDT documented as of this encounter Care Teams High School Academic Coach Relationship Specialty Start Date End Date Marlene Harden NP 70 [place] [address] PCP - General Family Medicine 01/10/22 08/07/24 Cj Meyer DO 70 [place] [address] PCP - General Internal Medicine 08/08/24 Dennis Temple MBBS 70 [place] [address] [email or web address] Primary Oncologist Hematology and Oncology 04/02/23 Gabriela Barnhart CNP [address] [place] [address] [email or web address] Nurse Practitioner Medical Oncology 01/16/24 documented as of this encounter Additional Source Comments The information contained in this document represents components of the legal health record. It is not the complete legal health record.[facility]
--- OUTSIDE RECORDS SUMMARY | 2025-02-01 06:17 | XMS_ITS | Clinical Summary ---
Author Organization [facility] Facility Address [address] [place] [address] Care Team Providers Care Physiotherapy Assistant Name Role Phone Marlene Harden NP Primary Care Provider [phone] Social History Tobacco Use Types Packs/Day Years [...] age to complete this topic Insurance [facility] Plan Care Teams Physiotherapy Assistant Relationship Specialty Start Date End Date Marlene Harden NP 70 [place] [address] PCP - General Nurse Practitioner 03/05/23
[2025-02-01 06:25] LABS: Anion Gap 11 (12-20); Blood Urea Nitrogen 21 mg/dL (9-16); Calcium 8.8 mg/dL (8.4-10.2); Carbon Dioxide 28 mmol/L (22-29); Chloride 105 mmol/L (96-108); Estimated Glomerular Filt Rate > 60; Potassium 4.0 mmol/L (3.3-5.1); Sodium 140 mmol/L (135-145)
[2025-02-01 06:37] LABS: Hematocrit 33.9 % (42.0-52.0); Hemoglobin 10.8 g/dl (14.0-18.0); Imm Gran Abs Auto 0.14 X10*3/uL (0.00-0.03); Imm Gran Pct Auto 1.6 % (0.0-0.4); Lymphocytes Absolute Auto 2.3 X10*3/uL (1.2-4.9); Mean Corpuscular HGB Conc 31.9 g/dl (31.0-36.0); Mean Corpuscular Hemoglobin 26.0 pg (27.0-33.0); Mean Corpuscular Volume 81.5 fL (80.0-98.0); NRBC Abs Auto 0.000 X10*3/uL (0.0-0.012); NRBC Pct Auto 0.0 /100WBC (0.0-0.2); Platelet Count 271 X10*3/uL (160-400); Red Blood Count 4.16 X10*6/uL (4.60-5.80); White Blood Count 8.6 X10*3/uL (4.8-10.8)
== END 2025-02-01 06:14 | disposition home or self-care (01) ==
LOC: HO.MMNH1L 06:13
PROVIDERS: Visit Provider Family Medicine
DX: J96.21 Acute and chronic respiratory failure with hypoxia (principal); J44.1 Chronic obstructive pulmonary disease with (acute) exacerbation; E46 Unspecified protein-calorie malnutrition
CPT/HCPCS: 36415; 80048; 85025

== ENCOUNTER 2025-02-08 06:51 | Outpatient (REF) | payer MEDICARE, SELFPAY ==
[2025-02-08 06:11] LABS: MANUAL DIFF FLAG NO
--- OUTSIDE RECORDS SUMMARY | 2025-02-08 06:53 | XMS_ITS | Encounter Summary ---
Author Organization [facility] Address [address] [place] [address] Phone Care Team Providers Care Time Motion Analyst Name Role Phone Dereck Marlene Delvalle FOAM RUBBER CURER Primary Care Provider Dennis Temple MBBS Unavailable [phone] Gabriela Barnhart PUBLIC RELATIONS MANAGER Unavailable Cj Meyer DO Primary Care Provider [phone] Encounter Details Date Type Department Care Team (Late st Contact Info) Description 10/03/2023 Procedure Pass [facility], Ct Scan - [address] [address] Social History Tobacco Use Types Packs/Day Years Used Date Smoking Tobacco: Every Day Cigarettes 0.5 48.9 Started: 03/28/1976 Smokeless Tobacco: Never Comments:Started using [...] Description 03/16/2025 9:00 AM EDT Office Visit [facility], Allergy and Critical Care Medicine 10 [place] [address] Conner Sneed MD [address] [place] [address] [email or web address] 03/29/2025 10:15 AM EDT Office Visit [facility] [address], [address] [place] [address] Zack Sanchez DO [address] [place] [address] 05/14/2025 1:00 PM EST Office Visit [facility] [address] 3rd [facility], [address] [place] [address] Rehan Landaverde MD [address] [place] [address] Scheduled Procedures Name Priority Associated Diagnoses Date/Ti me 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 IN SALES FLOOR TEAM MEMBER Systolic congestive heart failure, unspecified HF chronicity [...] documented as of this encounter Care Teams Time Motion Analyst Relationship Specialty Start Date End Date Marlene Harden NP 70 [place] [address] PCP - General Family Medicine 01/10/22 08/07/24 Cj Meyer DO 70 [place] [address] PCP - General Internal Medicine 08/08/24 Dennis Temple MBBS 70 [place] [address] [email or web address] Primary Oncologist Hematology and Oncology 04/02/23 Gabriela Barnhart CNP 30 [place] [address] [email or web address] Nurse Practitioner Medical Oncology 01/16/24 documented as of this encounter Additional Source Comments The information contained in this document represents components of the legal health record. It is not the complete legal health record.[facility]
--- OUTSIDE RECORDS SUMMARY | 2025-02-08 06:53 | XMS_ITS | Clinical Summary ---
Author Organization [facility] Facility Address [address] [place] [address] Care Team Providers Care Food Technician Name Role Phone Marlene Harden NP Primary Care Provider [phone] Social History Tobacco Use Types Packs/Day Years [...] patient's age to complete this topic Insurance [facility] Plan Care Teams Food Technician Relationship Specialty Start Date End Date Marlene Harden NP 70 [place] [address] PCP - General Nurse Practitioner 03/05/23
[2025-02-08 06:58] LABS: Hematocrit 32.3 % (42.0-52.0); Hemoglobin 10.4 g/dl (14.0-18.0); Imm Gran Abs Auto 0.14 X10*3/uL (0.00-0.03); Imm Gran Pct Auto 1.7 % (0.0-0.4); Lymphocytes Absolute Auto 2.1 X10*3/uL (1.2-4.9); Mean Corpuscular HGB Conc 32.2 g/dl (31.0-36.0); Mean Corpuscular Hemoglobin 25.9 pg (27.0-33.0); Mean Corpuscular Volume 80.5 fL (80.0-98.0); NRBC Abs Auto 0.000 X10*3/uL (0.0-0.012); NRBC Pct Auto 0.0 /100WBC (0.0-0.2); Platelet Count 222 X10*3/uL (160-400); Red Blood Count 4.01 X10*6/uL (4.60-5.80); White Blood Count 8.4 X10*3/uL (4.8-10.8)
[2025-02-08 07:12] LABS: Anion Gap 15 (12-20); Blood Urea Nitrogen 24 mg/dL (9-16); Calcium 8.8 mg/dL (8.4-10.2); Carbon Dioxide 26 mmol/L (22-29); Chloride 103 mmol/L (96-108); Estimated Glomerular Filt Rate > 60; Potassium 4.8 mmol/L (3.3-5.1); Sodium 139 mmol/L (135-145)
== END 2025-02-08 06:52 | disposition home or self-care (01) ==
LOC: HO.MMNH1L 06:51
PROVIDERS: Visit Provider Family Medicine
DX: J96.21 Acute and chronic respiratory failure with hypoxia (principal); J44.1 Chronic obstructive pulmonary disease with (acute) exacerbation; E46 Unspecified protein-calorie malnutrition
CPT/HCPCS: 36415; 80048; 85025

== ENCOUNTER 2025-02-15 06:29 | Outpatient (REF) | payer MEDICARE, SELFPAY ==
[2025-02-15 06:29] LABS: MANUAL DIFF FLAG NO
--- OUTSIDE RECORDS SUMMARY | 2025-02-15 06:31 | XMS_ITS | Encounter Summary ---
Author Organization [facility] Address [address] [place] [address] Phone Care Team Providers Care Vice President Financial Name Role Phone Dereck Marlene Delvalle PARTS CLERK PLANT MAINTENANCE Primary Care Provider [phone] Dennis Temple MBBS Unavailable Gabriela Barnhart WEBSITE/BLOG EDITOR Unavailable Cj Meyer DO Primary Care Provider Encounter Details Date Type Department Care Team (Late st Contact Info) Description 10/03/2023 Procedure Pass [facility], Ct Scan - [address] [address] Social History Tobacco Use Types Packs/Day Years [...] Pulmonary, Allergy and Critical Care Medicine 10 [place] [address] Conner Sneed MD [address] [place] [address] [email or web address] 03/29/2025 10:15 AM EDT Office Visit [facility] [address], [address] [place] [address] Zack Sanchez DO [address] [place] [address] 05/14/2025 1:00 PM EST Office Visit [facility] [address] 3rd [facility], [address] [place] [address] Rehan Landaverde MD [address] [place] [address] Scheduled Procedures Name Priority Associated Diagnoses Date/Ti me 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 IN MEDIA ACCOUNT EXECUTIVE Systolic congestive heart failure, unspecified HF chronicity [...] documented as of this encounter Care Teams Vice President Financial Relationship Specialty Start Date End Date Marlene Harden NP 70 [place] [address] PCP - General Family Medicine 01/10/22 08/07/24 Cj Meyer DO 70 [place] [address] PCP - General Internal Medicine 08/08/24 Dennis Temple MBBS 70 [place] [address] [email or web address] Primary Oncologist Hematology and Oncology 04/02/23 Gabriela Barnhart CNP 30 [place] [address] [email or web address] Nurse Practitioner Medical Oncology 01/16/24 documented as of this encounter Additional Source Comments The information contained in this document represents components of the legal health record. It is not the complete legal health record.[facility]
--- OUTSIDE RECORDS SUMMARY | 2025-02-15 06:31 | XMS_ITS | Clinical Summary ---
Author Organization [facility] Facility Address [address] [place] [address] Care Team Providers Care Marketing Engineer Name Role Phone Marlene Harden NP Primary Care Provider [phone] Social History Tobacco Use Types Packs/Day Years [...] to complete this topic Insurance [facility] Plan Care Teams Marketing Engineer Relationship Specialty Start Date End Date Marlene Harden NP 70 [place] [address] PCP - General Nurse Practitioner 03/05/23
[2025-02-15 07:13] LABS: Hematocrit 32.3 % (42.0-52.0); Hemoglobin 10.2 g/dl (14.0-18.0); Imm Gran Abs Auto 0.18 X10*3/uL (0.00-0.03); Imm Gran Pct Auto 1.8 % (0.0-0.4); Lymphocytes Absolute Auto 2.4 X10*3/uL (1.2-4.9); Mean Corpuscular HGB Conc 31.6 g/dl (31.0-36.0); Mean Corpuscular Hemoglobin 25.7 pg (27.0-33.0); Mean Corpuscular Volume 81.4 fL (80.0-98.0); NRBC Abs Auto 0.000 X10*3/uL (0.0-0.012); NRBC Pct Auto 0.0 /100WBC (0.0-0.2); Platelet Count 292 X10*3/uL (160-400); Red Blood Count 3.97 X10*6/uL (4.60-5.80); White Blood Count 9.9 X10*3/uL (4.8-10.8)
[2025-02-15 07:35] LABS: Anion Gap 13 (12-20); Blood Urea Nitrogen 28 mg/dL (9-16); Calcium 8.7 mg/dL (8.4-10.2); Carbon Dioxide 28 mmol/L (22-29); Chloride 103 mmol/L (96-108); Estimated Glomerular Filt Rate 59; Potassium 3.7 mmol/L (3.3-5.1); Sodium 140 mmol/L (135-145)
== END 2025-02-15 06:30 | disposition home or self-care (01) ==
LOC: HO.MMNH1L 06:29
PROVIDERS: Visit Provider Family Medicine
DX: J44.1 Chronic obstructive pulmonary disease with (acute) exacerbation (principal); E46 Unspecified protein-calorie malnutrition
CPT/HCPCS: 36415; 80048; 85025

== ENCOUNTER 2025-02-22 06:14 | Outpatient (REF) | payer MEDICARE, SELFPAY ==
[2025-02-22 06:00] LABS: MANUAL DIFF FLAG NO
--- OUTSIDE RECORDS SUMMARY | 2025-02-22 06:16 | XMS_ITS | Clinical Summary ---
Author Organization [facility] Facility Address [address] [place] [address] Care Team Providers Care Primer Boxer Name Role Phone Marlene Harden NP Primary Care Provider [phone] Social History Tobacco Use Types Packs/Day Years [...] age to complete this topic Insurance [facility] Plan Care Teams Primer Boxer Relationship Specialty Start Date End Date Marlene Harden NP 70 [place] [address] PCP - General Nurse Practitioner 03/05/23
--- OUTSIDE RECORDS SUMMARY | 2025-02-22 06:16 | XMS_ITS | Encounter Summary ---
Author Organization [facility] Address [address] [place] [address] Phone Care Team Providers Care Computer Mechanic Name Role Phone Dereck Marlene Delvalle NURSES' AIDE Primary Care Provider [phone] Dennis Temple MBBS Unavailable [phone] Gabriela Barnhart [employer] W[employer] OFFICER Unavailable Cj Meyer DO Primary Care Provider Encounter Details Date Type Department Care Team (Late st Contact Info) Description 10/03/2023 Procedure Pass [facility], Ct Scan - [address] [address] Social History Tobacco Use Types Packs/Day Years [...] Pulmonary, Allergy and Critical Care Medicine 10 [place] [address] Conner Sneed MD [address] [place] [address] [email or web address] 03/29/2025 10:15 AM EDT Office Visit [facility] [address], [address] [place] [address] Zack Sanchez DO [address] [place] [address] 05/14/2025 1:00 PM EST Office Visit [facility] [address] 3rd [facility], [address] [place] [address] Rehan Landaverde MD [address] [place] [address] Scheduled Procedures Name Priority Associated Diagnoses Date/Ti me 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 IN QUALITY COMPLIANCE MANAGER Systolic congestive heart failure, unspecified HF [...] documented as of this encounter Care Teams Computer Mechanic Relationship Specialty Start Date End Date Marlene Harden NP 70 [place] [address] PCP - General Family Medicine 01/10/22 08/07/24 Cj Meyer DO 70 [place] [address] PCP - General Internal Medicine 08/08/24 Dennis Temple MBBS 70 [place] [address] [email or web address] Primary Oncologist Hematology and Oncology 04/02/23 Gabriela Barnhart CNP 30 [place] [address] [email or web address] Nurse Practitioner Medical Oncology 01/16/24 documented as of this encounter Additional Source Comments The information contained in this document represents components of the legal health record. It is not the complete legal health record.[facility]
[2025-02-22 06:45] LABS: Hematocrit 33.5 % (42.0-52.0); Hemoglobin 10.7 g/dl (14.0-18.0); Imm Gran Abs Auto 0.25 X10*3/uL (0.00-0.03); Imm Gran Pct Auto 2.9 % (0.0-0.4); Lymphocytes Absolute Auto 2.2 X10*3/uL (1.2-4.9); Mean Corpuscular HGB Conc 31.9 g/dl (31.0-36.0); Mean Corpuscular Hemoglobin 25.8 pg (27.0-33.0); Mean Corpuscular Volume 80.7 fL (80.0-98.0); NRBC Abs Auto 0.000 X10*3/uL (0.0-0.012); NRBC Pct Auto 0.0 /100WBC (0.0-0.2); Platelet Count 276 X10*3/uL (160-400); Red Blood Count 4.15 X10*6/uL (4.60-5.80); White Blood Count 8.6 X10*3/uL (4.8-10.8)
[2025-02-22 07:08] LABS: Anion Gap 15 (12-20); Blood Urea Nitrogen 26 mg/dL (9-16); Calcium 8.9 mg/dL (8.4-10.2); Carbon Dioxide 28 mmol/L (22-29); Chloride 101 mmol/L (96-108); Cholesterol 126 mg/dL (<200); Estimated Glomerular Filt Rate 59; HDL Cholesterol 36 mg/dL (>40); Potassium 3.9 mmol/L (3.3-5.1); Sodium 140 mmol/L (135-145); Triglycerides 78 mg/dL (<150)
== END 2025-02-22 06:15 | disposition home or self-care (01) ==
LOC: HO.MMNH1L 06:14
PROVIDERS: Visit Provider Family Medicine
DX: J96.21 Acute and chronic respiratory failure with hypoxia (principal); J44.1 Chronic obstructive pulmonary disease with (acute) exacerbation; E46 Unspecified protein-calorie malnutrition
CPT/HCPCS: 36415; 80048; 80061; 85025

== ENCOUNTER 2025-03-01 | Outpatient (REF) | payer MEDICARE, SELFPAY ==
[2025-03-01 05:58] LABS: MANUAL DIFF FLAG NO
[2025-03-01 06:18] LABS: Anion Gap 13 (12-20); Blood Urea Nitrogen 23 mg/dL (9-16); Calcium 8.9 mg/dL (8.4-10.2); Carbon Dioxide 28 mmol/L (22-29); Chloride 107 mmol/L (96-108); Estimated Glomerular Filt Rate > 60; Potassium 4.3 mmol/L (3.3-5.1); Sodium 144 mmol/L (135-145)
[2025-03-01 06:49] LABS: Hematocrit 33.1 % (42.0-52.0); Hemoglobin 10.3 g/dl (14.0-18.0); Imm Gran Abs Auto 0.26 X10*3/uL (0.00-0.03); Imm Gran Pct Auto 2.9 % (0.0-0.4); Lymphocytes Absolute Auto 2.0 X10*3/uL (1.2-4.9); Mean Corpuscular HGB Conc 31.1 g/dl (31.0-36.0); Mean Corpuscular Hemoglobin 25.7 pg (27.0-33.0); Mean Corpuscular Volume 82.5 fL (80.0-98.0); NRBC Abs Auto 0.000 X10*3/uL (0.0-0.012); NRBC Pct Auto 0.0 /100WBC (0.0-0.2); Platelet Count 286 X10*3/uL (160-400); Red Blood Count 4.01 X10*6/uL (4.60-5.80); White Blood Count 8.9 X10*3/uL (4.8-10.8)
== END 2025-03-01 00:01 | disposition home or self-care (01) ==
LOC: HO.MMNH1L
PROVIDERS: Visit Provider Family Medicine
DX: J96.21 Acute and chronic respiratory failure with hypoxia (principal); J44.1 Chronic obstructive pulmonary disease with (acute) exacerbation; E46 Unspecified protein-calorie malnutrition
CPT/HCPCS: 36415; 80048; 85025

== ENCOUNTER 2025-03-09 06:20 | Outpatient (REF) | payer MEDICARE, SELFPAY ==
[2025-03-09 06:09] LABS: MANUAL DIFF FLAG NO
--- OUTSIDE RECORDS SUMMARY | 2025-03-09 06:25 | XMS_ITS | Encounter Summary ---
Author Organization [facility] Address [address] [facility] [address] [place] [address] Phone Care Team Providers Care Assistant Sales Director Name Role Phone Marlene Harden CARE TRANSITION MANAGER Primary Care Provider Yue Rodrigez RN Unavailable Jennifer Dash SUPERINTENDENT FACTORY Unavailable felisa Yvonne Montana Unavailable [email or web address] Dennis Temple MBBS Unavailable [phone] Gabriela Barnhart MEDICAL CLERK Unavailable Cj Meyer DO Primary Care Provider Encounter Details Date Type Department Care Team (Late st Contact Info) Description 05/14/2022 Transcribe Orders [facility] 30 [place] [address] Marlene Harden NP [address] [place], [place] [id number] Social History Tobacco Use Types Packs/Day Years Used Date Smoking Tobacco: Every Day Cigarettes 1.5 48.9 Started: 03/28/1976 Smokeless Tobacco: Never Comments:Started using nicot ine patch and decreasing. Alcohol Use Standard Drinks/Week Comments Not Currently 0 (1 standard drink = 0.6 oz pure alcohol) 5-6 nips daily. Quit drinking second week of April 2022 Sex and Gender Information Value Date Recorded [...] Pulmonary, Allergy and Critical Care Medicine 10 [facility] [place] [address] Conner Sneed MD 10 [facility] 2nd [place] [address] [email or web address] 03/29/2025 10:15 AM EDT Office Visit [facility] [address] 3rd [facility], [address] [place] [address] Zack Sanchez DO 22 [facility] [address] [place] [address] 05/14/2025 1:00 PM EST Office Visit [facility] [address] 3rd [facility], [address] [place] [address] Rehan Landaverde MD [address] [place] [address] Scheduled Procedures Name Priority Associated Diagnoses Date/Ti me 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 IN SKI PATROLLER Systolic congestive heart failure, unspecified HF chronicity documented as of this encounter Visit Diagnoses Not on filedocumented in this encounter Additional Health Concerns Infection Onset Date Last Indicated Resolved Time CoV-Risk 05/25/2022 05/25/2022 05/26/2022 6:36 AM EST CoV-Risk Comment:Neg covid 02/20/2023 02/20/2023 02/21/2023 7:26 AM E DT CoV-Risk Comment:Per note documentation 07/17/2024 07/17/2024 8:52 AM EST CoV-Risk 08/08/2024 08/08/2024 08/19/2024 1:22 AM EST RSV 08/08/2024 08/08/202408/15/2024 1:22 AM EST CoV-Risk Comment:Per note documentation 08/29/2024 08/29/2024 7:27 AM EST Assessment Noted Time PHQ-2 Depression Total Score: 2 03/28/20 22 11:32 AM EDT documented as of this encounter Care Teams Assistant Sales Director Relationship Specialty Start Date End Date Marlene Harden NP 70 [place] [address] PCP - General Family Medicine 01/10/22 08/07/24 Cj Meyer DO 70 [place] [address] PCP - General Internal Medicine 08/08/24 Yue Rodrigez, VENKATA [address] [place] [address] [facility] Network Engineering Advisor 02/21/22 06/09/23 Jennifer Dash LCSW [address] [place] [address] [facility] Social Work 02/01/23 02/11/23 Yvonne Montana [address] [place] [address] [facility] Community Health Worker 02/25/23 06/09/23 Dennis Temple MBBS [address] [place] [address] [email or web address] Primary Oncologist Hematology and Oncology 04/02/23 Gabriela Barnhart CNP [address] [place] [address] Nurse Practitioner Medical Oncology 01/16/24 documented as of this encounter Additional Source Comments The information contained in this document represents components of the legal health record. It is not the complete legal health record.[facility]
--- OUTSIDE RECORDS SUMMARY | 2025-03-09 06:25 | XMS_ITS | Encounter Summary ---
Author Organization [facility] Address [address] [facility] [address] [place] [address] Phone Care Team Providers Care Gas Engineer Name Role Phone Olegario Guy MD Primary Care Provider [phone] Marlene Harden NP Primary Care Provider Yue Rodrigez RN Unavailable Jennifer Dash ENVIRONMENT FRIENDLY LANDSCAPE DESIGNER Unavailable [email or web address] Yvonne Montana Unavailable [email or web address] Dennis Temple MBBS Unavailable Gabriela Barnhart BOTTOM SAW OPERATOR Unavailable Cj Meyer DO Primary Care Provider [phone] Encounter Details Date Type Department Care Team (Latest Contact Info) Description 03/28/2020 Transcribe Orders Virtual Department 30 [place] [address] Jie Wu NP [address] [place] [phone] [email or web address] Neck pain (Primary Dx) Social History Tobacco Use Types [...] Pulmonary, Allergy and Critical Care Medicine 10 [facility] [place] [address] Conner Sneed MD 10 [facility] 2nd [place] [address] [email or web address] 03/29/2025 10:15 AM EDT Office Visit [facility] [address] [place] [address] 3rd [facility], [address] [place] [address] Zack Sanchez DO 22 [facility] [address] [place] [address] 05/14/2025 1:00 PM EST Office Visit [facility] [address] 3rd [facility], [address] [place] [address] Rehan Landaverde MD [address] [place] [address] Scheduled Procedures Name Priority Associated Diagnoses Date/Ti ia 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 IN VACUUM DRIER OPERATOR Systolic congestive heart failure, unspecified HF chronicity documented as of this encounter Results * XR CERVICAL SPINE 2-3 VIEWS (04/01/2020 8:07 AM EDT) Anatomical Region Laterality Modality C-spine Computed Radiogr aphy 04/01/2020 9:00 AM EDT Impressions 04/01/2020 9:03 AM EDT Moderate degenerative disc and endplate changes at C5-C6 similar to 02/10/2015. Minimal retrolisthesis of C5 on C6 is stable. No evidence of instability. POS - [id number] Narrative 04/01/2020 9:03 AM EDT HISTORY: Left lateral neck pain radiating to the left arm and hand. COMPARISON: CT cervical spine 02/10/2015 VIEWS: Lateral views obtained in the neutral position and during flexion and extension. FINDINGS: Similar moderate disc space narrowing and sclerotic degenerative endplate changes at C5-C6. Small posterior osteophytes at this level. Other disc spaces are well-maintained. Minimal retrolisthesis of C5 on C6. No other significant subluxations. No evidence of instability. Prevertebral soft tissues are normal. Procedure Note Victorino Galvez MD - 04/01/2020 HISTORY: Left lateral neck pain radiating to the left arm and hand. COMPARISON: CT cervical spine 02/10/2015 VIEWS: Lateral views obtained in the neutral position and during flexionand extension. FINDINGS: Similar moderate disc space narrowing and sclerotic degenerative endplatechanges at C5-C6. Small posterior osteophytes at this level. Other discspaces are well-maintained. Minimal retrolisthesis of C5 on C6. No othersignificant subluxations. No evidence of instability. Prevertebral soft tissues are normal. IMPRESSION: Moderate degenerative disc and endplate changes at C5-C6 similar to02/10/2015. Minimal retrolisthesis of C5 on C6 is stable. No evidence ofinstability. POS - [id number] Jie Wu NP IMG XR SPINE Final Result documented in this encounter Visit Diagnoses Diagnosis Neck pain- Primary Cervicalgia Neck pain Cervicalgia documented in this encounter Additional Health Concerns Infection Onset Date Last Indicated Resolved Time CoV-Risk 02/20/2022 02/20/2022 03/03/2022 1:22 AM EDT CoV-Risk 05/25/2022 05/25/2022 05/26/2022 6:36 AM EST CoV-Risk Comment:Neg covid 02/20/2023 02/20/2023 02/21/2023 7:26 AM E DT CoV-Risk Comment:Per note documentation 07/17/2024 07/17/2024 8:52 AM EST CoV-Risk 08/08/2024 08/08/2024 08/19/2024 1:22 AM EST RSV 08/08/2024 08/08/2024 08/15/2024 1:22 AM EST CoV-Risk Comment:Per note documentation 08/29/2024 08/29/2024 7:27 AM EST documented as of this encounter Care Teams Gas Engineer Relationship Specialty Start Date End Date Olegario Guy MD [address] [facility] [address] [place] [phone] [email or web address] PCP - General Family Medicine 03/28/20 01/09/22 Marlene Harden PROCUREMENT ENGINEER 70 [place] [address] PCP - General Family Medicine 01/10/22 08/07/24 Cj Meyer DO [address] [place] [address] PCP - General Internal Medicine 08/08/24 Yue Rodrigez, VENKATA [address] [place] [address] [email or web address] [facility] Human Service Specialist 02/21/22 06/09/23 Jennifer Dash LCSW [address] [place] [address] [email or web address] [facility] Social Work 02/01/23 02/11/23 Yvonne Montana [address] [place] [address] [email or web address] [facility] Community Health Worker 02/25/23 06/09/23 Dennis Temple MBBS [address] [place] [address] [email or web address] Primary Oncologist Hematology and Oncology 04/02/23 Gabriela Barnhart CNP [address] [place] [address] Nurse Practitioner Medical Oncology 01/16/24 documented as of this encounter Additional Source Comments The information contained in this document represents components of the legal health record. It is not the complete legal health record.[facility]
--- OUTSIDE RECORDS SUMMARY | 2025-03-09 06:25 | XMS_ITS | Encounter Summary ---
Author Organization [facility] Address [address] [place] [address] Phone Care Team Providers Care Weather Forcaster Name Role Phone Marlene Harden NP Primary Care Provider Yue Rodrigez RN Unavailable Jennifer Dash HOUSEKEEPER HEAD Unavailable felisa Yvonne Montana Unavailable [email or web address] Dennis Temple MBBS Unavailable [phone] Gabriela Barnhart LICENSED OPTICAL DISPENSER Unavailable Cj Meyer DO Primary Care Provider Encounter Details Date Type Department Care Team (Late st Contact Info) Description 03/15/2022 Procedure Pass [facility], Ct Scan - [address] [address] Social History Tobacco Use Types Packs/Day Years [...] Description 03/16/2025 9:00 AM EDT Office Visit [facility] Pulmonary, Allergy and Critical Care Medicine 10 [facility] [place] [address] Conner Sneed MD 10 [facility] 2nd [place] [address] [email or web address] 03/29/2025 10:15 AM EDT Office Visit [facility] [address] 3rd [facility], [address] [place] [address] Zack Sanchez DO 22 [facility] [address] [place] [address] 05/14/2025 1:00 PM EST Office Visit [facility] [address] 3[address] [facility], [address] [place] [address] Rehan Landaverde MD [address] [place] [address] [email or web address] Scheduled Procedures Name Priority Associated Diagnoses Date/Ti me 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 IN SCREEN CLEANER Systolic congestive heart failure, unspecified HF chronicity [...] documented as of this encounter Care Teams Weather Forcaster Relationship Specialty Start Date End Date Marlene Harden NP [address] [place] [address] PCP - General Family Medicine 01/10/22 08/07/24 Cj Meyer DO 70 [place] [address] PCP - General Internal Medicine 08/08/24 Yue Rodrigez RN [address] [place] [address] [facility] Irrigator Valve Pipe 02/21/22 06/09/23 Jennifer Dash LCSW [address] [place] [address] [email or web address] [facility] Social Work 02/01/23 02/11/23 Yvonne Montana [address] [place] [address] [email or web address] [facility] Community Health Worker 02/25/23 06/09/23 Dennis Temple MBBS [address] [place] [address] [email or web address] Primary Oncologist Hematology and Oncology 04/02/23 Gabriela Barnhart CNP [address] [place] [address] Nurse Practitioner Medical Oncology 01/16/24 documented as of this encounter Additional Source Comments The information contained in this document represents components of the legal health record. It is not the complete legal health record.[facility]
--- OUTSIDE RECORDS SUMMARY | 2025-03-09 06:25 | XMS_ITS | Encounter Summary ---
Author Organization [facility] Address [address] [facility] [address] [place] [address] Phone Care Team Providers Care Targeteer Name Role Phone Marlene Harden DIRECTOR COMMUNITY CENTER Primary Care Provider [phone] Yue Rodrigez RN Unavailable Jennifer Dash CRATE ICER Unavailable felisa Yvonne Montana Unavailable Dennis Temple MBBS Unavailable [phone] Gabriela Barnhart CARCASS WASHER Unavailable Cj Meyer DO Primary Care Provider Encounter Details Date Type Department Care Team (Late st Contact Info) Description 02/20/2022 Procedure Pass [facility] [address] [place] [address] Social History Tobacco Use Types Packs/Day Years Used Date Smoking Tobacco: Every Day Cigarettes Smokeless Tobacco: Never Alcohol Use Standard Drinks/Week Comments Yes 5 (1 standard drink = 0.6 oz pur e alcohol) Negrita Sex and Gender Information Value Date Recorded Sex Assigned at Male 02/20/2022 11:20 AM EDT Legal Sex Male 9:44 PM EDT Gender Identity Male 02/20/2022 11:20 AM EDT Sexual Orientation Straight 02/20/2022 11 :20 AM EDT documented as of this encounter Functional Status * Calculated C-SSRS Risk Score (Lifetime/Recent) Answer Date of Assessment Author No Risk Indicated 02/20/2022 11:20 AM EDT Elizabeth Le RN * [place] Suicide Severity Rating Scale (Screener/Recent Self-Report) Question Answer Date of Assessment Author 1. Wish to be (Past 1 Month) No 022 11:20 AM EDT Elizabeth Spears RN 2. Non-Specific Active Suici meghan Thoughts (Past 1 Month) No 02/20/2022 11:20 AM EDT Keli Spears RN 6. Suicidal Behavior (Lifetime) No 11:20 AM EDT Elizabeth Spears RN documented as of this encounter Plan of Treatment Upcoming Encounters Date Type Department Care Team (Late st Contact Info) Description 03/16/2025 9:00 AM EDT Office Visit [facility] Pulmonary, Allergy and Critical Care Medicine [address] [place] [address] Conner Sneed MD [address] [place] [address] [email or web address] 03/29/2025 10:15 AM EDT Office Visit [facility] [address] [place] [address], [address] [place] [address] Zack Sanchez DO [address] [place] [address] 05/14/2025 1:00 PM EST Office Visit [facility] [address] [place] [address], [address] [address] Rehan Landaverde MD [address] [place] [address] Scheduled Procedures Name Priority Associated Diagnoses Date/Ti 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 Systolic congestive heart failure, unspecified HF chronicity documented as of this encounter Visit Diagnoses Not on filedocumented in this encounter Additional Health Concerns Infection Onset Date Last Indicated Resolved Time CoV-Risk 02/20/2022 02/20/2022 03/03/2022 1:22 AM EDT CoV-Risk 05/25/2022 05/25/2022 05/26/2022 6:36 AM EST CoV-Risk Comment:Neg covid 02/20/2023 02/20/2023 02/21/2023 7:26 AM EDT CoV-Risk Comment:Per note documentation 07/17/2024 07/17/2024 8:52 AM EST CoV-Risk 08/08/2024 08/08/2024 08/19/2024 1:22 AM EST RSV 08/08/2024 08/08/2024 08/15/2024 1:22 AM EST CoV-Risk Comment:Per note documentation 08/29/2024 08/29/2024 7:27 AM EST documented as of this encounter Care Teams Targeteer Relationship Specialty Start Date End Date Marlene Harden NP [address] [place] [address] PCP - General Family Medicine 01/10/22 08/07/24 Cj Meyer DO [address] [place] [address] PCP - General Internal Medicine 08/08/24 Yue Rodrigez, VENKATA [address] [place] [address] [email or web address] [facility] Lean Six Sigma Black Belt 02/21/22 06/09/23 Jennifer Dash LCSW [address] [place] [address] [email or web address] [facility] Social Work 02/01/23 02/11/23 Yvonne Montana [address] [place] [address] [email or web address] [facility] Community Health Worker 02/25/23 06/09/23 Dennis Temple MBBS [address] [place] [address] [email or web address] Primary Oncologist Hematology and Oncology 04/02/23 Gabriela Barnhart CNP [address] [place] [address] [email or web address] Nurse Practitioner Medical Oncology 01/16/24 documented as of this encounter Additional Source Comments The information contained in this document represents components of the legal health record. It is not the complete legal health record.[facility]
--- OUTSIDE RECORDS SUMMARY | 2025-03-09 06:25 | XMS_ITS | Encounter Summary ---
Author Organization [facility] Address [address] [facility] [address] [place] [address] Phone Care Team Providers Care Redevelopment Manager Name Role Phone Olegario Guy MD Primary Care Provider [phone] Marlene Harden NP Primary Care Provider [phone] Yue Rodrigez RN Unavailable Jennifer Dash RCP Unavailable [email or web address] Yvonne Montana Unavailable Dennis Temple MBBS Unavailable [phone] Gabriela Barnhart AIRCRAFT LINE ASSEMBLER Unavailable Cj Meyer DO Primary Care Provider Encounter Details Date Type Department Care Team (Late st Contact Info) Description 03/28/2020 Procedure Pass [facility], [address] [address] Social History Tobacco Use Types Packs/Day Years Used Date Smoking Tobacco: Never Assessed Sex and Gender Information Value Date Recorded Sex Assigned at Male 02/20/2022 11:20 AM EDT Legal Sex Male 9:44 PM EDT Gender Identity Male 02/20/2022 11:20 AM EDT Sexual Orientation Straight 02/20/2022 11 :20 AM EDT documented as of this encounter Last Filed Vital Signs Vital Sign Reading Time Taken Comments Blood Pressure - - Pulse - - Temperature - - Respiratory Rate - - Oxygen Saturation - - Inhaled Oxygen Concentration - - Weight 70.3 kg (155 lb) 03/28/2020 6:39 PM EDT Height 172.7 cm (5' 8 ) 03/28/2020 6:39 PM EDT Body Mass Index 23.57 03/28/2020 6:39 PM EDT documented in this encounter Plan of Treatment Upcoming Encounters Date Type Department Care Team (Late st Contact Info) Description 03/16/2025 9:00 AM EDT Office Visit [facility] Pulmonary, Allergy and Critical Care Medicine 10 [facility] [place] [address] Conner Sneed MD [address] [address] [email or web address] 03/29/2025 10:15 AM EDT Office Visit [facility] [address] 3rd [facility], [address] [place] [address] Zack Sanchez DO 22 [facility] [address] [place] [address] 05/14/2025 1:00 PM EST Office Visit [facility] [address] [facility], [address] [place] [address] Rehan Landaverde MD [address] [place] [address] [email or web address] Scheduled Procedures Name Priority Associated Diagnoses Date/Ti me 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 IN BELLHOP SERVICE CAPTAIN Systolic congestive heart failure, unspecified HF chronicity documented as of this encounter Visit Diagnoses Not on filedocumented in this encounter Additional Health Concerns Infection Onset Date Last Indicated Resolved Time CoV-Risk 02/20/2022 02/20/2022 03/03/2022 1:22 AM EDT CoV-Risk 05/25/2022 05/25/2022 05/26/2022 6:36 AM EST CoV-Risk Comment:Neg covid 02/20/2023 02/20/2023 02/21/2023 7:26 AM E DT CoV-Risk Comment:Per note documentation 07/17/2024 07/17/2024202 5 8:52 AM EST CoV-Risk 08/08/2024 08/08/2024 08/19/2024 1:22 AM EST RSV 08/08/2024 08/08/2024 08/15/2024 1:22 AM EST CoV-Risk Comment:Per note documentation 08/29/2024 08/29/2024 7:27 AM EST documented as of this encounter Care Teams Redevelopment Manager Relationship Specialty Start Date End Date Olegario Guy MD 230 [facility] [address] [place] [address] [email or web address] PCP - General Family Medicine 03/28/20 01/09/22 Marlene Harden NP 70 [place] [address] PCP - General Family Medicine 01/10/22 08/07/24 Cj Meyer DO [address] [place] [address] PCP - General Internal Medicine 08/08/24 Yue Rodrigez, VENKATA [address] [place] [address] [facility] Hairspring Truer 02/21/22 06/09/23 Jennifer Dash LCSW [address] [place] [address] [facility] Social Work 02/01/23 02/11/23 Yvonne Montana [address] [place] [address] [facility] Community Health Worker 02/25/23 06/09/23 Dennis Temple MBBS [address] [place] [address] [email or web address] Primary Oncologist Hematology and Oncology 04/02/23 Gabriela Barnhart CNP [address] [place] [address] [email or web address] Nurse Practitioner Medical Oncology 01/16/24 documented as of this encounter Additional Source Comments The information contained in this document represents components of the legal health record. It is not the complete legal health record.[facility]
--- OUTSIDE RECORDS SUMMARY | 2025-03-09 06:25 | XMS_ITS | Encounter Summary ---
Author Organization [facility] Address [address] [facility] [address] [place] [address] Phone Care Team Providers Care Restaurant Line Server Name Role Phone Marlene Harden NP Primary Care Provider [phone] Yue Rodrigez RN Unavailable Jennifer Dash CHARTER BOAT CAPTAIN Unavailable [email or web address] Yvonne Montana Unavailable [email or web address] Dennis Temple MBBS Unavailable [phone] Gabriela Barnhart DIRECTOR OF OFFICIATING Unavailable Cj Meyer DO Primary Care Provider [phone] Reason for Referral * - Closed Specialty Diagnoses / Procedures Referred By Contflorentin t Referred To Contact Diagnoses Permanent atrial fibrillation Procedures MCT (Mobile Cardiac Telemetry) Zack Sanchez DO Phone: tel: fax: mailto: Referral ID Status Reason Start Date Expiration Date Visits Re quested Visits Authorized [id number] Closed 04/11/2022 04/11/2023 1 1 Encounter Details Date Type Department Care Team (Latest Contact Info) Description 04/11/2022 Ancillary Orders [facility] [address] [facility] 3rd Floor, [address] [place] [address] Zack Sanchez DO [address] [address] [email or web address] Permanent atrial fibrillation Social History Tobacco Use Types Packs/Day Years Used Date Smoking Tobacco: Every Day Cigarettes 1.5 48.9 Started: [birth year]/28/1978 Smokeless Tobacco: Never Comments:using nicotine patc h and also has nicotine inhaler Alcohol Use Standard Drinks/Week Comments Yes 4 (1 standard drink = 0.6 oz pur e alcohol) whiskey shots 3-4 per day Sex and Gender Information Value Date Recorded [...] Pulmonary, Allergy and Critical Care Medicine 10 [place] [address] Conner Sneed MD [address] [place] [address] [email or web address] 03/29/2025 10:15 AM EDT Office Visit [facility] [address] [place] [address], [address] [place] [address] Zack Sanchez DO [address] [address] 05/14/2025 1:00 PM EST Office Visit [facility] [address] [place] 3[address] [facility], [address] [place] [address] Rehan Landaverde MD [address] [place] [address] Scheduled Orders Name Type Priority Associated Diagnoses Orde r Schedule MCT (Mobile Cardiac Telemetry) Cardiac Monitors Routine Permanent atrial fibrillation Expected: 02/27/2022, Expires: 05/23/2022 Scheduled Procedures Name Priority Associated Diagnoses Date/Ti me 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 IN SHRIMPER Systolic congestive heart failure, unspecified HF chronicity documented as of this encounter Visit Diagnoses Diagnosis Permanent atrial fibrillation Atrial fibrillation documented in this encounter Additional Health Concerns [...] documented as of this encounter Care Teams Restaurant Line Server Relationship Specialty Start Date End Date Marlene Harden NP 70 [place] [address] PCP - General Family Medicine 01/10/22 08/07/24 Cj Meyer DO 70 [place] [address] PCP - General Internal Medicine 08/08/24 Yue Rodrigez, RN [address] [place] [address] [facility] Mop Maker 02/21/22 06/09/23 Jennifer Dash LCSW [address] [place] [address] [facility] Social Work 02/01/23 02/11/23 Yvonne Montana 10 [place] [address] [email or web address] Community Health Worker 02/25/23 06/09/23 Dennis Temple MBBS [address] [place] [address] [email or web address] Primary Oncologist Hematology and Oncology 04/02/23 Gabriela Barnhart CNP [address] [place] [address] [email or web address] Nurse Practitioner Medical Oncology 01/16/24 documented as of this encounter Additional Source Comments The information contained in this document represents components of the legal health record. It is not the complete legal health record.[facility]
--- OUTSIDE RECORDS SUMMARY | 2025-03-09 06:25 | XMS_ITS | Encounter Summary ---
Author Organization [facility] Address [address] [place] [address] Phone Care Team Providers Care Turnstile Collector Name Role Phone Dereck Marlene Delvalle JACKSCREW WORKER Primary Care Provider Dennis Temple MBBS Unavailable Gabriela Barnhart SCHEDULING REPRESENTATIVE Unavailable Cj Meyer DO Primary Care Provider [phone] Encounter Details Date Type Department Care Team (Late st Contact Info) Description 10/03/2023 Procedure Pass [facility], Ct Scan - [address] [address] Social History Tobacco Use Types Packs/Day Years [...] Pulmonary, Allergy and Critical Care Medicine 10 [place] [address] Conner Sneed MD [address] [place] [address] [email or web address] 03/29/2025 10:15 AM EDT Office Visit [facility] [address], [address] [place] [address] Zack Sanchez DO [address] [place] [address] 05/14/2025 1:00 PM EST Office Visit [facility] [address] [facility], [address] [place] [address] Rehan Landaverde MD [address] [place] [address] Scheduled Procedures Name Priority Associated Diagnoses Date/Ti me 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 IN GOLD BURNISHER Systolic congestive heart failure, unspecified HF chronicity [...] documented as of this encounter Care Teams Turnstile Collector Relationship Specialty Start Date End Date Marlene Harden NP 70 [place] [address] PCP - General Family Medicine 01/10/22 08/07/24 Cj Meyer DO 70 [place] [address] PCP - General Internal Medicine 08/08/24 Dennis Temple MBBS 70 [place] [address] [email or web address] Primary Oncologist Hematology and Oncology 04/02/23 Gabriela Barnhart CNP 30 [place] [address] [email or web address] Nurse Practitioner Medical Oncology 01/16/24 documented as of this encounter Additional Source Comments The information contained in this document represents components of the legal health record. It is not the complete legal health record.[facility]
--- OUTSIDE RECORDS SUMMARY | 2025-03-09 06:25 | XMS_ITS | Encounter Summary ---
Author Organization [facility] Address 399 [facility] [address] [place] [address] Phone Care Team Providers Care Pack Worker Supervisor Name Role Phone Olegario Guy MD Primary Care Provider Marlene Harden NP Primary Care Provider [phone] Yue Rodrigez RN Unavailable Jennifer Dash BAKED GOODS STOCK CLERK Unavailable [email or web address] Yvonne Montana Unavailable Dennis Temple MBBS Unavailable Gabriela Barnhart PEER SUPPORT SPECIALIST Unavailable Cj Meyer DO Primary Care Provider [phone] Reason for Referral * MRI/CAT Scan - Closed Specialty Diagnoses / Procedures Referred By Contflorentin t Referred To Contact Radiology Diagnoses Abnormal chest x-ray Procedures CT Chest Marlene Harden NP Phone: tel: Referral ID Status Reason Start Date Expiration Date Visits Re quested Visits Authorized [id number] Closed 01/05/2022 01/05/2023 1 1 Encounter Details Date Type Department Care Team (Latest Contact Info) Description 01/05/2022 Transcribe Orders Virtual Department 30 [place] [address] Marlene Harden NP [address] [place] [address] Abnormal chest x-ray (Primary Dx) Social History Tobacco Use Types [...] CD Pulmonary, Allergy and Critical Care Medicine [address] [place] [address] Conner Sneed MD [address] [place] [address] [email or web address] 03/29/2025 10:15 AM EDT Office Visit [facility] [address] 3rd [facility], [address] [place] [address] Zack Sanchez DO 22 [facility] [address] [place] [address] 05/14/2025 1:00 PM EST Office Visit [facility] [address] 3rd Floor, [address] [place] [address] Rehan Landaverde MD [address] [place] [address] Scheduled Procedures Name Priority Associated Diagnoses Date/Ti me 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 IN RENEWALS SPECIALIST Systolic congestive heart failure, unspecified HF chronicity documented as of this encounter Results * CT CHEST WITH CONTRAST (01/19/2022 2:12 PM EDT) Anatomical Region Laterality Modality Chest Computed Tomogra phy 01/20/2022 4:27 PM EDT Impressions 01/20/2022 4:40 PM EDT Diffuse peribronchial thickening, areas of mucous plugging, and clusters of tree-in-bud nodules in the lower lobes consistent with infectious/inflammatory bronchiolitis. Scattered nodules measuring up to 5 mm, likely also infectious/inflammatory. RECOMMENDATION: Consider follow-up CT chest in 6-8 weeks. Narrative 01/20/2022 4:[address] CHEST WITH CONTRAST TECHNIQUE: Multidetector CT of the chest was performed with intravenous contrast using tailored dose modulation techniques. COMPARISON: XR CHEST OUTSIDE (NO INTERPRETATION) FINDINGS: Devices/Tubes/Lines: None. Lungs: Diffuse, mild peribronchial thickening. Scattered areas of mucous plugging. Clusters of tree-in-bud nodules predominantly in the lower lobes. Scattered nodules measuring up to 5 mm, for example in the right lower lobe 4:189. Pleura: No pleural effusion or pneumothorax. Mediastinum: No thyroid nodules. Normal heart size. No pericardial effusion. Moderate amount of coronary calcifications. Lymph Nodes: No enlarged supraclavicular, axillary, mediastinal, or hilar lymph nodes. Upper Abdomen: No abnormality detected in the visualized upper abdomen. Chest Wall: No chest wall mass. Bones: No suspicious lytic or blastic lesions. Procedure Note Allie Duvall MD - 01/20/2022 CT CHEST WITH CONTRAST TECHNIQUE: Multidetector CT of the chest was performed with intravenouscontrast using tailored dose modulation techniques. COMPARISON: XR CHEST OUTSIDE (NO INTERPRETATION) FINDINGS: Devices/Tubes/Lines: None. Lungs: Diffuse, mild peribronchial thickening. Scattered areas of mucousplugging. Clusters of tree-in-bud nodules predominantly in the lowerlobes. Scattered nodules measuring up to 5 mm, for example in the rightlower lobe 4:189. Pleura: No pleural effusion or pneumothorax. Mediastinum: No thyroid nodules. Normal heart size. No pericardialeffusion. Moderate amount of coronary calcifications. Lymph Nodes: No enlarged supraclavicular, axillary, mediastinal, or hilarlymph nodes. Upper Abdomen: No abnormality detected in the visualized upper abdomen. Chest Wall: No chest wall mass. Bones: No suspicious lytic or blastic lesions. IMPRESSION: Diffuse peribronchial thickening, areas of mucous plugging, and clustersof tree-in-bud nodules in the lower lobes consistent withinfectious/inflammatory bronchiolitis. Scattered nodules measuring up to 5 mm, likely alsoinfectious/inflammatory. RECOMMENDATION: Consider follow-up CT chest in 6-8 weeks. Marlene Harden RELATIONSHIP MANAGER IMG CT CHEST Final Result documented in this encounter Visit Diagnoses Diagnosis Abnormal chest x-ray- Primary Nonspecific (abnormal) findings on radiological and other examination of lung field Abnormal chest x-ray Nonspecific (abnormal) findings on radiological and other examination of lung field documented in this encounter Additional Health Concerns [...] documented as of this encounter Care Teams Pack Worker Supervisor Relationship Specialty Start Date End Date Olegario Guy MD [address] [place] [address] [address] [place] [address] [email or web address] PCP - General Family Medicine 03/28/20 01/09/22 Marlene Harden NP 70 [place] [address] PCP - General Family Medicine 01/10/22 08/07/24 Cj Meyer DO 70 [place] [address] PCP - General Internal Medicine 08/08/24 Yue Rodrigez, RN [address] [place] [address] [email or web address] [facility] Cupola Melter Helper 02/21/22 06/09/23 Jennifer Dash LCSW [address] [place] [address] [email or web address] [facility] Social Work 02/01/23 02/11/23 Yvonne Montana [address] [place] [address] [email or web address] [facility] Community Health Worker 02/25/23 06/09/23 Dennis Temple MBBS [address] [place] [address] [email or web address] Primary Oncologist Hematology and Oncology 04/02/23 Gabriela Barnhart CNP [address] [place] [address] [email or web address] Nurse Practitioner Medical Oncology 01/16/24 documented as of this encounter Additional Source Comments The information contained in this document represents components of the legal health record. It is not the complete legal health record.[facility]
--- OUTSIDE RECORDS SUMMARY | 2025-03-09 06:25 | XMS_ITS | Encounter Summary ---
Author Organization [facility] Address 399 [facility] [address] [place] [address] Phone Care Team Providers Care Service Center Supervisor Name Role Phone Marlene Harden NP Primary Care Provider [phone] Dennis Temple MBBS Unavailable Gabriela Barnhart POWER TONG OPERATOR Unavailable Cj Meyer DO Primary Care Provider [phone] Reason for Referral * MRI/CAT Scan - Closed Specialty Diagnoses / Procedures Referred By Contflorentin t Referred To Contact Radiology Diagnoses Cigarette smoker Procedures CT Chest Lung Cancer Screening Initial Or Annual Marlene Harden NP Phone: tel: Referral ID Status Reason Start Date Expiration Date Visits Re quested Visits Authorized [id number] Closed 10/03/2023 10/02/2024 1 1 Encounter Details Date Type Department Care Team (Latest Contact Info) Description 10/03/2023 Transcribe Orders Virtual Department 30 [place] [address] Marlene Harden NP [address] [place], [place] [id number] Cigarette smoker (Primary Dx) Social History Tobacco [...] Pulmonary, Allergy and Critical Care Medicine 10 [facility] [place] [address] Conner Sneed MD [address] [address] [email or web address] 03/29/2025 10:15 AM EDT Office Visit [facility] [address] [place] [address] 3rd [facility], [address] [place] [address] Zack Sanchez DO [address] [place] [address] [place] [address] [place] [address] 05/14/2025 1:00 PM EST Office Visit [facility] 3rd Floor, [address] [place] [address] Rehan Landaverde MD [address] [place] [address] [email or web address] Scheduled Procedures Name Priority Associated Diagnoses Date/Ti me 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 IN MARKETING ANALYTICS LEAD Systolic congestive heart failure, unspecified HF chronicity [...] clinician's provided indication for this examination in [facility]: Lung Cancer Screening - CURRENT [...] clinician's provided indication for this examination in [facility]:Lung Cancer Screening - CURRENT smoker (20+ pk-yrs, [...] categories can be found at:[email or web address] Marlene Harden WATER RESOURCE SPECIALIST IMG CT CHEST Final Result documented in [...] documented as of this encounter Care Teams Service Center Supervisor Relationship Specialty Start Date End Date Marlene Harden NP 70 [place] [address] PCP - General Family Medicine 01/10/22 08/07/24 Cj Meyer DO 70 [place] [address] PCP - General Internal Medicine 08/08/24 Dennis Temple MBBS 70 [place] [address] [email or web address] Primary Oncologist Hematology and Oncology 04/02/23 Gabriela Barnhart CNP [address] [place] [address] [phone] (work) [email or web address] Nurse Practitioner Medical Oncology 01/16/24 documented as of this encounter Additional Source Comments The information contained in this document represents components of the legal health record. It is not the complete legal health record.[facility]
--- OUTSIDE RECORDS SUMMARY | 2025-03-09 06:25 | XMS_ITS | Encounter Summary ---
Author Organization [facility] Address 399 [facility] [address] [place] [address] Phone Care Team Providers Care Accounts Payable Or Receivable Clerk Name Role Phone Olegario Guy MD Primary Care Provider [phone] Marlene Harden NP Primary Care Provider Yue Rodrigez RN Unavailable Jennifer Dash RADIOLOGIC TECHNOLOGY INSTRUCTOR Unavailable ndelabar Yvonne Montana Unavailable Dennis Temple MBBS Unavailable [phone] Gabriela Barnhart BRUSH OPERATOR Unavailable Cj Meyer DO Primary Care Provider Encounter Details Date Type Department Care Team (Late st Contact Info) Description 01/05/2022 Procedure Pass [facility], Ct Scan - [address] [address] Social History Tobacco Use Types Packs/Day Years [...] Pulmonary, Allergy and Critical Care Medicine 10 [facility] [place] [address] Conner Sneed MD 10 [facility] 2nd [place] [address] [email or web address] 03/29/2025 10:15 AM EDT Office Visit [facility] [address] 3rd [facility], [address] [place] [address] Zack Sanchez DO 22 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 Systolic congestive heart failure, unspecified HF chronicity [...] documented as of this encounter Care Teams Accounts Payable Or Receivable Clerk Relationship Specialty Start Date End Date Olegario Guy MD 230 [facility] 6260 [place] [phone] [email or web address] PCP - General Family Medicine 03/28/20 01/09/22 Marlene Harden NP 70 [place], [place] PCP - General Family Medicine 01/10/22 08/07/24 Cj Meyer DO [address] [place] [address] PCP - General Internal Medicine 08/08/24 Yue Rodrigez RN [address] [place] [address] [facility] Pizza Baker 02/21/22 06/09/23 Jennifer Dash LCSW [address] [place] [address] [facility] Social Work 02/01/23 02/11/23 Yvonne Mnotana [address] [place] [address] [email or web address] [facility] Community Health Worker 02/25/23 06/09/23 Dennis Temple MBBS [address] [place] [address] [email or web address] Primary Oncologist Hematology and Oncology 04/02/23 Gabriela Barnhart CNP [address] [place] [address] [email or web address] Nurse Practitioner Medical Oncology 01/16/24 documented as of this encounter Additional Source Comments The information contained in this document represents components of the legal health record. It is not the complete legal health record.[facility]
--- OUTSIDE RECORDS SUMMARY | 2025-03-09 06:25 | XMS_ITS | Encounter Summary ---
Author Organization [facility] Address 399 [facility] [address] [place] [address] Phone Care Team Providers Care Behavioral Specialist Name Role Phone Olegario Guy MD Primary Care Provider Marlene Harden LOOM TUNER Primary Care Provider Yue Rodrigez RN Unavailable Jennifer Dash SOCIAL INSURANCE ADVISER Unavailable ndelabar Yvonne Montana Unavailable Dennis Temple MBBS Unavailable [phone] Gabriela Barnhart COAL HAULER OPERATOR Unavailable Cj Meyer DO Primary Care Provider [phone] Encounter Details Date Type Department Care Team (Latest Contact Info) Description 01/02/2022 Transcribe Orders Virtual Department 30 [place] [address] Marlene Harden, CAM [address] [place], [place] [phone] Shortness of breath (Primary Dx); Dyspnea, unspecified type Social History Tobacco Use Types Packs/Day Years [...] Description 03/16/2025 9:00 AM EDT Office [facility], Allergy and Critical Care Medicine 10 [facility] [place] [address] Conner Sneed MD 10 [facility] 2nd [place] [address] [email or web address] 03/29/2025 10:15 AM EDT Office Visit [facility] 22 [facility] 3rd Floor, [address] [place] [address] Zack Sanchez DO 22 [facility] [address] [place] [address] 05/14/2025 1:00 PM EST Office Visit [address] 3rd [facility], [address] [place] [address] Rehan Landaverde MD [address] [place] [address] Scheduled Procedures Name Priority Associated Diagnoses Date/Ti me 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 IN PRESSURE TEST OPERATOR Systolic congestive heart failure, unspecified HF chronicity documented as of this encounter Results * Pulmonary Function Test Reason for Exam: Dyspnea/Shortness of Breath; Type of PFT Test: Spirometry with bronchodilator, DLCO, Lung Volumes; Performing Location: [facility] (05/21/2022 3:49 PM EST) FEV1 1.08 liters FVC 2.87 liters FEV1/FVC 38 % TLC 6.33 liters DLCO 15.8 ml/mmHg sec Anatomical Region Laterality Modality Other Impressions 05/21/2022 3:49 PM EST PULMONARY FUNCTION STUDIES Full pulmonary function studies were performed on this 57 y.o. year-old male for evaluation of shortness of breath. Review of the medical record reveals that the patient is a current smoker. Prior pulmonary function studies are not available for comparison. SPIROMETRY: The FEV1 is severely impaired at 1.00 L or 33% predicted. The FVC is mildly impaired at 2.69 L or 64% predicted. The FEV1/FVC ratio is severely impaired at 37%. After the administration of a bronchodilator agent, there is no significant change. FLOW-VOLUME LOOPS: Evaluation of the flow-volume loops reveals normal morphology of the inspiratory limb with scooping of the expiratory limb and blunting of the peak expiratory flows in keeping with the patient's obstructive lung disease. LUNG VOLUME MEASUREMENTS BY PLETHYSMOGRAPHY: The total lung capacity is normal at 6.33 L or 107% predicted. The functional residual capacity is elevated at 4.14 L or 127% predicted. Residual volume moderately elevated at 3.49 L 163% predicted, giving an increased RV/TLC ratio consistent with air trapping. Airway resistance measurements are markedly elevated. DIFFUSION CAPACITY: The diffusion capacity is mildly impaired at 15.8 mL/mmHg sec or 71% predicted. COMPARISON TO PRIOR STUDIES: None available. Resting oxygen saturation is 97% on 2 L nasal cannula, 94% on room air. IMPRESSION: Markedly abnormal pulmonary function studies with severe fixed airflow obstruction with evidence of air trapping, increased airway resistance measurements and mildly reduced diffusion capacity. In a patient with extensive tobacco exposure history, these findings are consistent with a diagnosis of severe COPD, stage III by GOLD criteria. Clinical and radiographic correlation advised. us Marlene Harden NP PFT ORDERABLES Final Result documented in this encounter Visit Diagnoses Diagnosis Dyspnea, unspecified type Dyspnea, unspecified type documented in this encounter Additional Health Concerns [...] documented as of this encounter Care Teams Behavioral Specialist Relationship Specialty Start Date End Date Olegario Guy MD 230 [facility] [address] [place] [address] [email or web address] PCP - General Family Medicine 03/28/20 01/09/22 Marlene Harden, LOOM TUNER 70 [place] [address] PCP - General Family Medicine 01/10/22 08/07/24 Cj Meyer DO [address] [place] [address] PCP - General Internal Medicine 08/08/24 Yue Rodrigez, VENKATA [address] [place] [address] [facility] Pre School Teacher 02/21/22 06/09/23 Jennifer Dash LCSW [address] [place] [address] [facility] Social Work 02/01/23 02/11/23 Yvonne Montana [address] [place] [address] [email or web address] [facility] Community Health Worker 02/25/23 06/09/23 Dennis Temple MBBS [address] [place] [address] [email or web address] Primary Oncologist Hematology and Oncology 04/02/23 Gabriela Barnhart CNP [address] [place] [address] Nurse Practitioner Medical Oncology 01/16/24 documented as of this encounter Additional Source Comments The information contained in this document represents components of the legal health record. It is not the complete legal health record.[facility]
--- OUTSIDE RECORDS SUMMARY | 2025-03-09 06:25 | XMS_ITS | Encounter Summary ---
Author Organization [facility] Address 399 [facility] [address] [place] [address] Phone Care Team Providers Care Loan Inspector Name Role Phone Marlene Harden NP Primary Care Provider Yue Rodrigez RN Unavailable Jennifer Dash HIGH TENSION TESTER Unavailable felisa Yvonne Montana Unavailable Dennis Temple MBBS Unavailable [phone] Gabriela Barnhart TRANSPLANT IMMUNOLOGIST Unavailable Cj Meyer DO Primary Care Provider [phone] Encounter Details Date Type Department Care Team (Late st Contact Info) Description 05/29/2022 Procedure Pass [facility] Cardiovascular And Interventional Radiology 30 [place] [address] Social History Tobacco Use Types Packs/Day Years [...] 03/16/2025 9:00 AM EDT Office Visit [facility] Pulmonary, Allergy and Critical Care Medicine 10 [facility] [place] [address] Conner Sneed MD 10 [facility] 2nd [place] [address] [email or web address] 03/29/2025 10:15 AM EDT Office Visit [facility] [address] 3rd [facility], [address] [place] [address] Zack Sanchez DO 22 [facility] [address] [place] [address] 05/14/2025 1:00 PM EST Office Visit [address] 3rd [facility], [address] [place] [address] Rehan Landaverde MD [address] [place] [address] [email or web address] Scheduled Procedures Name Priority Associated Diagnoses Date/Ti me 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 Systolic congestive heart failure, unspecified HF chronicity documented as of this encounter Visit Diagnoses Not on filedocumented in this encounter Additional Health Concerns Infection Onset Date Last Indicated Resolved Time CoV-Risk Comment:Neg covid 02/20/2023 02/20/2023 02/21/2023 7:26 AM E DT CoV-Risk Comment:Per note documentation 07/17/2024 07/17/2024 8:52 AM EST CoV-Risk 08/08/2024 08/08/2024 08/19/2024 1:22 AM EST RSV 08/08/2024 08/08/2024 08/15/2024 1:22 AM EST CoV-Risk Comment:Per note documentation 08/29/2024 08/29/2024 7:27 AM EST Assessment Noted Time PHQ-2 Depression Total Score: 2 03/28/20 22 11:32 AM EDT documented as of this encounter Care Teams Loan Inspector Relationship Specialty Start Date End Date Marlene Harden NP 70 [place] [address] PCP - General Family Medicine 01/10/22 08/07/24 Cj Meyer DO 70 [place] [address] PCP - General Internal Medicine 08/08/24 Yue Rodrigez, VENKATA [address] [place] [address] [facility] Installation Helper 02/21/22 06/09/23 Jennifer Dash LCSW [address] [place] [address] [facility] Social Work 02/01/23 02/11/23 Yvonne Montana [address] [place] [address] [email or web address] [facility] Community Health Worker 02/25/23 06/09/23 Dennis Temple MBBS [address] [place] [address] [email or web address] Primary Oncologist Hematology and Oncology 04/02/23 Gabriela Barnhart CNP [address] [place] [address] Nurse Practitioner Medical Oncology 01/16/24 documented as of this encounter Additional Source Comments The information contained in this document represents components of the legal health record. It is not the complete legal health record.[facility]
--- OUTSIDE RECORDS SUMMARY | 2025-03-09 06:26 | XMS_ITS | Encounter Summary ---
Author Organization [facility] Address [address] [place] [address] Phone Care Team Providers Care Permastone Installer Name Role Phone Dereck Marlene Delvalle STATISTICIAN APPLIED Primary Care Provider Dennis Temple MBBS Unavailable [phone] Gabriela Barnhart HUMAN RESOURCES COMPLIANCE MANAGER Unavailable Cj Meyer DO Primary Care Provider Encounter Details Date Type Department Care Team (Late st Contact Info) Description 07/18/2024 Procedure Pass [facility], [address] [address] Social History Tobacco Use Types Packs/Day Years [...] on file 11/01/2022 No 11/01/2022 No 11/01/2022 Food Answer Date Recorded Within the past 6 months we worried whether our food would run out before we got money to buy more. Unable to assess 025 Within the past 6 months the food we bought just didn't last and we didn't have enough money to get more. Unable to assess 07/18/2024 Residential Stability Answer Date Recor ded What is your housing situation today? Unable to assess 07/18/2024 How many times have you moved in the past 12 mon ths? Unable to assess 07/18/2024 Paying for Meds Answer Date Recorded Do you have trouble paying for medicines? Unable to assess 07/18/2024 Paying Utility Bills Answer Date Record ed Do you have trouble paying y our heating or electricity bill? Unable to assess 07/18/2024 Transportation Answer Date Recorded Has the lack of transportati on kept you from medical appointments or from getting medications? Unable to assess 07/18/2024 Digital Access Answer Date Recorded No 07/18/2024 No 07/18/2024 Do you have reliable internet access at home? Un able to assess 07/18/2024 Do you have a device (e.g., phone, tablet, computer) with a working camera? Unable to assess 07/18/2024 Intimate Partner Violence Answer Date R ecorded Are you denied basic needs s uch as food, clothing, or medical care? Patient unable to respond 07/18/2024 In the past 12 months have y ou been in a relationship with a person who hurts, threatens, or tries to control you? Patient unable to respond 07/18/2024 Are you denied basic needs s uch as food, clothing, or medical care? Patient unable to respond 07/18/2024 In the past 12 months have y ou been in a relationship with a person who hurts, threatens, or tries to control you? Patient unable to respond 07/18/2024 Sex and Gender Information Value Date Recorded Sex Assigned at Male 02/20/2022 11:20 AM EDT Legal Sex Male 9:44 PM EDT Gender Identity Male 02/20/2022 11:20 AM EDT Sexual Orientation Straight 02/20/2022 11 :20 AM EDT documented as of this encounter Plan of Treatment Upcoming Encounters Date Type Department Care Team ([facility] st Contact Info) Description 03/16/2025 9:00 AM EDT Office Visit [facility], All[facility] [address] [place] [address] Conner Sneed MD [address] [address] [email or web address] 03/29/2025 10:15 AM EDT Office Visit [facility] [address] 3rd [facility], [address] [place] [address] Zack Sanchez DO 22 [facility] [address] [place] [address] 05/14/2025 1:00 PM EST Office Visit [facility] [address] 3[address] [facility], [address] [place] [address] Rehan Landaverde MD [address] [place] [address] Scheduled Procedures Name Priority Associated Diagnoses Date/Ti me 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 IN FACILITY MAINTENANCE TECHNICIAN Systolic congestive heart failure, unspecified HF chronicity [...] documented as of this encounter Care Teams Permastone Installer Relationship Specialty Start Date End Date Marlene Harden NP 70 [place] [address] PCP - General Family Medicine 01/10/22 08/07/24 Cj Meyer DO 70 [place] [address] PCP - General Internal Medicine 08/08/24 Dennis Temple MBBS [address] [place] [address] [email or web address] Primary Oncologist Hematology and Oncology 04/02/23 Gabriela Barnhart CNP [address] [place] [address] [email or web address] Nurse Practitioner Medical Oncology 01/16/24 documented as of this encounter Additional Source Comments The information contained in this document represents components of the legal health record. It is not the complete legal health record.[facility]
--- OUTSIDE RECORDS SUMMARY | 2025-03-09 06:26 | XMS_ITS | Encounter Summary ---
Author Organization [facility] Address [address] [place] [address] Phone Care Team Providers Care Digital Assistant Name Role Phone Temple, Ahmastu Mccann MBBS Unavailable Pack, Gabriela FRUIT TESTER Unavailable Cj Meyer DO Primary Care Provider [phone] Encounter Details Date Type Department Care Team (Late st Contact Info) Description 08/30/2024 Procedure Pass [facility], Ct Scan - [facility] [address] [place] [address] Social History Tobacco Use Types Packs/Day Years Used Date Smoking Tobacco: Former Cigarettes 0.5 48.4 0 03/28/1976 - 08/09/2024 Smokeless Tobacco: Never Alcohol Use Standard Drinks/Week Comments Not Currently 21 (1 standard drink = 0.6 oz pu re alcohol) Home Health Assessment: Transportation Answer Date Recorded Lack of Transportation (Medical) No 08/04/2024 Lack of Transportation (Non-Medical) No 08/04/2024 Patient Unable or Declines to Respond No 08/04/2024 Education Answer Date Recorded Are you interested in more education? Not on cornelius e 11/01/2022 Are you concerned about learning? Not on file 11/01/2022 No 11/01/2022 No 11/01/2022 Food Answer Date Recorded Within the past 6 months we worried whether our food would run out before we got money to buy more. Never True 08/30/2024 Within the past 6 months the food we bought just didn't last and we didn't have enough money to get more. Never True Residential Stability Answer Date Recor ded What is your housing situation today? I have mark henry 08/30/2024 How many times have you move d in the past 12 months? Zero (I did not move) 08/30/2024 Paying for Meds Answer Date Recorded Do you have trouble paying for medicines? No 08/30/2024 Paying Utility Bills Answer Date Record ed Do you have trouble paying your heating or elect ricity bill? Yes 08/30/2024 Transportation Answer Date Recorded Has the lack of transportati on kept you from medical appointments or from getting medications? No 08/30/2024 Digital Access Answer Date Recorded No 08/30/2024 Yes 08/30/2024 Do you have reliable internet access at home? Ye s 08/30/2024 Do you have a device (e.g., phone, tablet, computer) with a working camera? Yes 08/30/2024 Intimate Partner Violence Answer Date R ecorded Are you denied basic needs s uch as food, clothing, or medical care? No 08/29/2024 In the past 12 months have y ou been in a relationship with a person who hurts, threatens, or tries to control you? No 08/29/2024 Are you denied basic needs s uch as food, clothing, or medical care? No 08/29/2024 In the past 12 months have y ou been in a relationship with a person who hurts, threatens, or tries to control you? No 08/29/2024 Sex and Gender Information Value Date Recorded Sex Assigned at Male 02/20/2022 11:20 AM EDT Legal Sex Male 9:44 PM EDT Gender Identity Male 02/20/2022 11:20 AM EDT Sexual Orientation Straight 02/20/2022 11 :20 AM EDT documented as of this encounter Plan of Treatment Upcoming Encounters Date Type Department Care Team ([facility] st Contact Info) Description 03/16/2025 9:00 AM EDT Office Visit [facility] 10 [facility] [place] [address] Conner Sneed MD [address] [address] [email or web address] 03/29/2025 10:15 AM EDT Office Visit [facility] [address] Floor, [address] [place] [address] Zack Sanchez DO 22 [facility] [address] [place] [address] 05/14/2025 1:00 PM EST Office Visit [facility] [address] Floor, [address] [place] [address] Rehan Landaverde MD [address] [place] [address] [email or web address] Scheduled Procedures Name Priority Associated Diagnoses Date/Ti me 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 IN STRIKE OPERATIONS OFFICER Systolic congestive heart failure, unspecified HF chronicity documented as of this encounter Visit Diagnoses Not on filedocumented in this encounter Additional Health Concerns Infection Onset Date Last Indicated Resolved Time CoV-Risk Comment:Per note documentation 08/29/2024 08/29/2024 7:27 AM EST Assessment Noted Time PHQ-2 Depression Total Score: 2 03/28/20 22 11:32 AM EDT documented as of this encounter Care Teams Digital Assistant Relationship Specialty Start Date End Date Cj Meyer DO [address] [place] [address] PCP - General Internal Medicine 08/08/24 Dennis Temple MBBS [email or web address] Primary Oncologist Hematology and Oncology 04/02/23 Gabriela Barnhart CNP 30 [place] [address] Nurse Practitioner Medical Oncology 01/16/24 documented as of this encounter Additional Source Comments The information contained in this document represents components of the legal health record. It is not the complete legal health record.[facility]
--- OUTSIDE RECORDS SUMMARY | 2025-03-09 06:26 | XMS_ITS | Encounter Summary ---
Author Organization [facility] Address [address] [place] [address] Phone Care Team Providers Care Sales And Marketing Analyst Name Role Phone Olegario Guy MD Primary Care Provider [phone] Marlene Harden NP Primary Care Provider [phone] Yue Rodrigez RN Unavailable Jennifer Dash FIRESTOPPER TECHNICIAN Unavailable ndelabar Yvonne Montana Unavailable Dennis Temple MBBS Unavailable [phone] Gabriela Barnhart MANUSCRIPT READER Unavailable Cj Meyer DO Primary Care Provider [phone] Reason for Referral * MRI/CAT Scan - Closed Specialty Diagnoses / Procedures Referred By Contac t Referred To Contact Radiology Diagnoses Cervical radiculopathy Procedures MRI Cervical Spine Jie Wu NP Phone: tel: fax: [email or web address] Referral ID Status Reason Start Date Expiration Date Visits Re quested Visits Authorized [id number] Closed 03/21/2020 04/04/2020 1 1 Encounter Details Date Type Department Care Team (Latest Contact Info) Description 03/28/2020 Transcribe Orders [address] [address] Jie Wu NP [address] [place] [phone] [email or web address] Cervical radiculopathy (Primary Dx) Social History Tobacco Use Types [...] [facility] Pulmonary, Allergy and Critical Care Medicine [address] [place] [address] Conner Sneed MD [address] [place] [address] [email or web address] 03/29/2025 10:15 AM EDT Office Visit [facility] [address] [place] [address], [address] [place] [address] Zack Sanchez DO [address] [place] [address] 05/14/2025 1:00 PM EST Office Visit [facility] [address] [place] [address] 3rd [facility], [address] [place] [address] Rehan Landaverde MD [address] [place] [address] Scheduled Procedures Name Priority Associated Diagnoses Date/Ti me EMI MONITOR INSERTION IN CHIEF CLOTH FINISHING RANGE OPERATOR Systolic congestive heart failure, unspecified HF chronicity documented as of this encounter Results * MRI CERVICAL SPINE (NEURO) FOCUS WITHOUT CONTRAST (04/01/2020 7:46 AM EDT) Anatomical Region Laterality Modality C-spine Magnetic Resonan ce 04/01/2020 9:01 AM EDT Impressions 04/01/2020 9:16 AM EDT Chronic disc spur complex at C5-6 without central canal stenosis. Associated bilateral neural foraminal narrowing. Small broad-based C6-7 disc protrusion with associated vertebral body marrow edema and minimal upper endplate Schmorl's node formation at C7. Very minimal grade 1 C7-T1 spondylolisthesis with minimal non-specific edema in the left T1 facet, suspected to be reactive. Minimal C3-4 C4-5 disc bulging. No additional disc protrusion identified. POS - [id number] Narrative 04/01/2020 9:16 AM EDT TECHNIQUE: Exam performed on a 1.5 Meredith high-field MRI scanner. Sagittal T1, T2 and STIR, axial T2* gradient echo and 3-D bright fluid sequences were obtained. FINDINGS: Comparisons made with current radiographs and the prior CT of 02/10/2015. C2-3: No focal disc protrusion, central canal stenosis, or significant neural foraminal compromise. C3-4: Small focal posterior central disc bulge. No central canal stenosis or significant neural foraminal compromise. C4-5: Small focal posterior central disc bulge. No central canal or significant neural foraminal stenosis. C5-6: There is chronic posterior spondylosis and minimal superimposed hypointense disc bulge. No acute disc protrusion or central canal stenosis. Chronic uncovertebral spurring causes advanced bilateral neural foraminal stenosis, slightly progressed on the right since 2014. C6-7: Small broad-based hypointense disc protrusion flattening the ventral aspect of the thecal sac but not causing significant central canal stenosis. Uncovertebral spurring leads to minimal bilateral neural foraminal narrowing which seems to have progressed since 2015. C7-T1: There is an approximate 2 mm anterolisthesis of the C7 body not apparent on current radiographs. No focal disc protrusion or central canal stenosis. Neural foramina are patent. On the sagittal sequences no focal disc protrusion or canal stenosis are demonstrated at the T1-2 or T2-3 levels. There is prominent presumed discogenic marrow edema in the C6 vertebral body and underlying the upper C7 endplate, where Schmorl's node formation is present. No other significant abnormality of vertebral body marrow signal noted although there does appear to be some edema in the left T1 superior facet. No discrete cord lesion. No paraspinal soft tissue mass or prevertebral soft tissue swelling. Procedure Note Mario Fleming MD - 04/01/2020 TECHNIQUE: Exam performed on a 1.5 Meredith high-field MRI scanner. SagittalT1, T2 and STIR, axial T2* gradient echo and 3-D bright fluid sequenceswere obtained. FINDINGS: Comparisons made with current radiographs and the prior CT of 02/10/2015. C2-3: No focal disc protrusion, central canal stenosis, or significantneural foraminal compromise. C3-4: Small focal posterior central disc bulge. No central canal stenosisor significant neural foraminal compromise. C4-5: Small focal posterior central disc bulge. No central canal orsignificant neural foraminal stenosis. C5-6: There is chronic posterior spondylosis and minimal superimposedhypointense disc bulge. No acute disc protrusion or central canalstenosis. Chronic uncovertebral spurring causes advanced bilateral neuralforaminal stenosis, slightly progressed on the right since 2015. C6-7: Small broad-based hypointense disc protrusion flattening the ventralaspect of the thecal sac but not causing significant central canalstenosis. Uncovertebral spurring leads to minimal bilateral neuralforaminal narrowing which seems to have progressed since 2015. C7-T1: There is an approximate 2 mm anterolisthesis of the C7 body notapparent on current radiographs. No focal disc protrusion or central canalstenosis. Neural foramina are patent. On the sagittal sequences no focal disc protrusion or canal stenosis aredemonstrated at the T1-2 or T2-3 levels. There is prominent presumeddiscogenic marrow edema in the C6 vertebral body and underlying the upperC7 endplate, where Schmorl's node formation is present. No othersignificant abnormality of vertebral body marrow signal noted althoughthere does appear to be some edema in the left T1 superior facet. No discrete cord lesion. No paraspinal soft tissue mass or prevertebralsoft tissue swelling. IMPRESSION: Chronic disc spur complex at C5-6 without central canal stenosis.Associated bilateral neural foraminal narrowing. Small broad-based C6-7 disc protrusion with associated vertebral bodymarrow edema and minimal upper endplate Schmorl's node formation at C7.Very minimal grade 1 C7-T1 spondylolisthesis with minimal non-specificedema in the left T1 facet, suspected to be reactive. Minimal C3-4 C4-5 disc bulging. No additional disc protrusionidentified. POS - [id number] Jie Wu NP IMG MR XSPECIALTY Final Result documented in this encounter Visit Diagnoses Diagnosis Cervical radiculopathy- Primary Brachial neuritis or radiculitis nos Cervical radiculopathy Brachial neuritis or radiculitis nos documented in this encounter Additional Health Concerns [...] documented as of this encounter Care Teams Sales And Marketing Analyst Relationship Specialty Start Date End Date Olegario Guy MD [address] [place] [address] [address] [place] [phone] [email or web address] PCP - General Family Medicine 03/28/20 01/09/22 Marlene Harden NP [address] [place] [address] PCP - General Family Medicine 01/10/22 08/07/24 Cj Meyer DO [address] [place] [address] PCP - General Internal Medicine 08/08/24 Yue Rodrigez, RN [address] [place] [address] [facility] Radio News Anchor 02/21/22 06/09/23 Jennifer Dash LCSW [address] [place] [address] [facility] Social Work 02/01/23 02/11/23 Yvonne Montana [address] [place] [address] [email or web address] [facility] Community Health Worker 02/25/23 06/09/23 Dennis Temple MBBS [address] [place] [address] [email or web address] Primary Oncologist Hematology and Oncology 04/02/23 Gabriela Barnhart CNP [address] [place] [address] [email or web address] Nurse Practitioner Medical Oncology 01/16/24 documented as of this encounter Additional Source Comments The information contained in this document represents components of the legal health record. It is not the complete legal health record.[facility]
--- OUTSIDE RECORDS SUMMARY | 2025-03-09 06:26 | XMS_ITS | Encounter Summary ---
Author Organization [facility] Address [address] [place] [address] Phone Care Team Providers Care Property Assistant Name Role Phone Dereck Marlene Delvalle SULFUR BURNER Primary Care Provider [phone] Dennis Temple MBBS Unavailable Gabriela Barnhart DRAPERY HAND Unavailable Cj Meyer DO Primary Care Provider Encounter Details Date Type Department Care Team (Late st Contact Info) Description 07/28/2024 Procedure Pass [facility], Ct Scan - [address] [id number] Social History Tobacco Use Types Packs/Day Years Used Date Smoking Tobacco: Every Day Cigarettes 0.5 48.9 Started: 03/28/1976 Smokeless Tobacco: Never Comments:Started using nicot ine patch and decreasing. As of pulmonology visit on 09/03/22, pt reported being down to half pack per day. Alcohol Use Standard Drinks/Week Comments Yes 21 (1 standard drink = 0.6 oz pu re alcohol) 3 nips daily Home Health Assessment: Transportation Answer Date Recorded Lack of Transportation (Medical) No 07/27/2024 Lack of Transportation (Non-Medical) No 07/27/2024 Patient Unable or Declines to Respond No 07/27/2024 Education Answer Date Recorded Are you interested [...] have you moved in the past 12 sat? Unable to assess 07/18/2024 Paying for Meds [...] as food, clothing, or medical care? No 07/28/2024 In the past 12 months have y ou been in a relationship with a person who hurts, threatens, or tries to control you? No 07/28/2024 Are you denied basic needs s uch as food, clothing, or medical care? No 07/28/2024 In the past 12 months have y ou been in a relationship with a person who hurts, threatens, or tries to control you? No 07/28/2024 Sex and Gender Information Value Date Recorded Sex Assigned at Male 02/20/2022 11:20 AM EDT Legal Sex Male 9:44 PM EDT Gender Identity Male 02/20/2022 11:20 AM EDT Sexual Orientation Straight 02/20/2022 11 :20 AM EDT documented as of this encounter Functional Status * Calculated C-SSRS Risk Score (Lifetime/Recent) Answer Date of Assessment Author No Risk Indicated 07/28/2024 9:13 PM EST Adrian Childress, VENKATA * [place] Suicide Severity Rating Scale (Screener/Recent Self-Report) Question Answer Date of Assessment Author 1. Wish to be (Past 1 Month) No 07/28/2024 9:13 PM Adrian Estes, VENKATA 6. Suicidal Behavior (Lifetime) No 07/28/2024 9:13 PM Adrian Estes, VENKATA documented as of this encounter Plan of Treatment Upcoming Encounters Date Type Department Care Team (Late st Contact Info) Description 03/16/2025 9:00 AM EDT Office Visit [facility] [address] [place] [address] Conner Sneed MD [address] [place] [address] [email or web address] 03/29/2025 10:15 AM EDT Office Visit [facility] [address], [address] [place] [address] Zack Sanchez DO [address] [place] [address] [place] [address] 05/14/2025 1:00 PM EST Office Visit [facility] [address], [address] [place] [address] Rehan Landaverde MD [address] [place] [address] Scheduled Procedures Name Priority Associated Diagnoses Date/Ti me 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 IN OFFICER CAPTAIN Systolic congestive heart failure, unspecified HF chronicity documented as of this encounter Visit Diagnoses Not on filedocumented in this encounter Additional Health Concerns Infection Onset Date Last Indicated Resolved Time CoV-Risk 08/08/2024 08/08/2024 08/19/2024 1:22 AM EST RSV 08/08/2024 08/08/2024 08/15/2024 1:22 AM EST CoV-Risk Comment:Per note documentation 08/29/2024 08/29/2024 7:27 AM EST Assessment Noted Time PHQ-2 Depression Total Score: 2 03/28/20 22 11:32 AM EDT documented as of this encounter Care Teams Property Assistant Relationship Specialty Start Date End Date Marlene Harden NP [address] [place] [address] PCP - General Family Medicine 01/10/22 08/07/24 Cj Meyer DO [address] [place] [address] PCP - General Internal Medicine 08/08/24 Dennis Temple MBBS [address] [place] [address] [email or web address] Primary Oncologist Hematology and Oncology 04/02/23 Gabriela Barnhart CNP [address] [place] [address] [email or web address] Nurse Practitioner Medical Oncology 01/16/24 documented as of this encounter Additional Source Comments The information contained in this document represents components of the legal health record. It is not the complete legal health record.[facility]
--- OUTSIDE RECORDS SUMMARY | 2025-03-09 06:26 | XMS_ITS | Encounter Summary ---
Author Organization [facility] Address [address] [place] [address] Phone Care Team Providers Care Shoe Repairer Apprentice Name Role Phone Dereck Marlene Delvalle POLE PEELING MACHINE OPERATOR Primary Care Provider Dennis Temple MBBS Unavailable [phone] Gabriela Barnhart FIRE CONTROL MECHANIC Unavailable Cj Meyer DO Primary Care Provider Encounter Details Date Type Department Care Team (Late st Contact Info) Description 07/18/2024 Procedure Pass [facility], Ct Scan - [address] [address] Social History Tobacco Use Types Packs/Day Years [...] Upcoming Encounters Date Type Department Care Team ([facility] st Contact Info) Description 03/16/2025 9:00 AM EDT Office Visit [facility] Pulmonary, Allergy and Critical Care Medicine [address] [place] [address] Conner Sneed MD [address] [address] [email or web address] 03/29/2025 10:15 AM EDT Office Visit [facility] [address] [facility], [address] [place] [address] Zack Sanchez DO 22 [facility] [address] [place] [address] 05/14/2025 1:00 PM EST Office Visit [address] [facility], [address] [place] [address] Rehan Landaverde MD [address] [place] [address] Scheduled Procedures Name Priority Associated Diagnoses Date/Ti me 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 IN DIE TURNER Systolic congestive heart failure, unspecified HF chronicity [...] documented as of this encounter Care Teams Shoe Repairer Apprentice Relationship Specialty Start Date End Date Marlene Harden NP [address] [place] [address] PCP - General Family Medicine 01/10/22 08/07/24 Cj Meyer DO 70 [place] [address] PCP - General Internal Medicine 08/08/24 Dennis Temple MBBS [address] [place] [address] [email or web address] Primary Oncologist Hematology and Oncology 04/02/23 Gabriela Barnhart CNP [address] [place] [address] [email or web address] Nurse Practitioner Medical Oncology 01/16/24 documented as of this encounter Additional Source Comments The information contained in this document represents components of the legal health record. It is not the complete legal health record.[facility]
--- OUTSIDE RECORDS SUMMARY | 2025-03-09 06:26 | XMS_ITS | Encounter Summary ---
Author Organization [facility] Address [address] [place] [address] Phone Care Team Providers Care Online Marketing Manager Name Role Phone Temple, Ahmastu Mccann MBBS Unavailable Pack, Gabriela TECHNICAL COMMUNICATOR Unavailable Cj Meyer DO Primary Care Provider [phone] Encounter Details Date Type Department Care Team (Late st Contact Info) Description 08/08/2024 Procedure Pass [facility], Ct Scan - [facility] [address] [place] [address] Social History Tobacco Use Types Packs/Day Years [...] as food, clothing, or medical care? No 08/08/2024 In the past 12 months have y ou been in a relationship with a person who hurts, threatens, or tries to control you? No 08/08/2024 Are you denied basic needs s uch as food, clothing, or medical care? No 08/08/2024 In the past 12 months have y ou been in a relationship with a person who hurts, threatens, or tries to control you? No 08/08/2024 Sex and Gender Information Value Date Recorded Sex Assigned at Male 02/20/2022 11:20 AM EDT Legal Sex Male 9:44 PM EDT Gender Identity Male 02/20/2022 11:20 AM EDT Sexual Orientation Straight 02/20/2022 11 :20 AM EDT documented as of this encounter Functional Status * Calculated C-SSRS Risk Score (Lifetime/Recent) Answer Date of Assessment Author No Risk Indicated 08/08/2024 3:25 PM Maria E Timmons RN * [place] Suicide Severity Rating Scale (Screener/Recent Self-Report) Question Answer Date of Assessment Author 1. Wish to be (Past 1 Month) No 025 3:25 PM Maria E Timmons, VENKATA 2. Non-Specific Active Suici meghan Thoughts (Past 1 Month) No 08/08/2024 3:25 PM Galindo Timmons, RN 6. Suicidal Behavior (Lifetime) No 3:25 PM Maria E Timmons, VENKATA documented as of this encounter Plan of Treatment Upcoming Encounters Date Type Department Care Team (Late st Contact Info) Description 03/16/2025 9:00 AM EDT Office Visit [facility] Pulmonary, Allergy and Critical Care Medicine [address] [place] [address] Conner Sneed MD [address] [place] [address] [email or web address] 03/29/2025 10:15 AM EDT Office Visit [facility] [address] [place] [address], [address] [place] [address] Zack Sanchez DO [address] [place] [address] 05/14/2025 1:00 PM EST Office Visit [facility] [address], [address] [place] [address] Rehan Landaverde MD [address] [place] [address] Scheduled Procedures Name Priority Associated Diagnoses Date/Ti 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 IN SENIOR IOS DEVELOPER Systolic congestive heart failure, unspecified HF chronicity [...] documented as of this encounter Care Teams Online Marketing Manager Relationship Specialty Start Date End Date Cj Meyer DO [address] [place] [address] PCP - General Internal Medicine 08/08/24 Dennis Temple MBBS [email or web address] [email or web address] Primary Oncologist Hematology and Oncology 04/02/23 Gabriela Barnhart CNP [address] [place] [address] [email or web address] Nurse Practitioner Medical Oncology 01/16/24 documented as of this encounter Additional Source Comments The information contained in this document represents components of the legal health record. It is not the complete legal health record.[facility]
--- OUTSIDE RECORDS SUMMARY | 2025-03-09 06:26 | XMS_ITS | Encounter Summary ---
Author Organization [facility] Address [address] [place] [address] Phone Care Team Providers Care Human Service Technician Name Role Phone Dereck Marlene Delvalle BACK OFFICE MEDICAL ASSISTANT Primary Care Provider [phone] Dennis Temple MBBS Unavailable [phone] Gabriela Barnhart APPOINTMENT COORDINATOR Unavailable Cj Meyer DO Primary Care Provider [phone] Encounter Details Date Type Department Care Team (Late st Contact Info) Description 07/18/2024 Procedure Pass [facility], [facility] [address] [place] [address] Social History Tobacco Use Types Packs/Day Years [...] Upcoming Encounters Date Type Department Care Team ([facility] st Contact Info) Description 03/16/2025 9:00 AM EDT Office Visit [facility] Pulmonary, Allergy and Critical Care Medicine [address] [place] [address] Cnoner Sneed MD [address] [address] [email or web address] 03/29/2025 10:15 AM EDT Office Visit [facility] [address] [facility], [address] [place] [address] Zack Sanchez DO 22 [facility] [address] [place] [address] 05/14/2025 1:00 PM EST Office Visit [facility] [address] [facility], [address] [place] [address] Rehan Landaverde MD [address] [place] [address] Scheduled Procedures Name Priority Associated Diagnoses Date/Ti me 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 IN FILTER HELPER Systolic congestive heart failure, unspecified HF chronicity [...] documented as of this encounter Care Teams Human Service Technician Relationship Specialty Start Date End Date Marlene Harden NP 70 [place] [address] PCP - General Family Medicine 01/10/22 08/07/24 Cj Meyer DO 70 [place] [address] PCP - General Internal Medicine 08/08/24 Dennis Temple MBBS [address] [place] [address] [email or web address] Primary Oncologist Hematology and Oncology 04/02/23 Gabriela Barnhart CNP [address] [place] [address] [email or web address] Nurse Practitioner Medical Oncology 01/16/24 documented as of this encounter Additional Source Comments The information contained in this document represents components of the legal health record. It is not the complete legal health record.[facility]
--- OUTSIDE RECORDS SUMMARY | 2025-03-09 06:26 | XMS_ITS | Encounter Summary ---
Author Organization [facility] Address [address] [facility] [address] [place] [address] Phone Care Team Providers Care Health Assistant Name Role Phone Marlene Harden NP Primary Care Provider [phone] Yue Rodrigez RN Unavailable Jennifer Dash ENTERPRISE SYSTEMS ENGINEER Unavailable felisa Yvonne Montana Unavailable Dennis Temple MBBS Unavailable [phone] Gabriela Barnhart MOVIE EXTRA Unavailable Cj Meyer DO Primary Care Provider Encounter Details Date Type Department Care Team (Late st Contact Info) Description 09/03/2022 Procedure Pass [facility], Ct Scan - [address] [address] Social History Tobacco Use Types Packs/Day Years Used Date Smoking Tobacco: Every Day Cigarettes 0.5 48.9 Started: 03/28/1976 Smokeless Tobacco: Never Comments:Started using nicot ine patch and decreasing. As of pulmonology visit on 09/03/22, pt reported being down to half pack per day. Alcohol Use Standard Drinks/Week Comments Not Currently [...] Pulmonary, Allergy and Critical Care Medicine [address] [place] [address] Conner Sneed MD 10 [facility] 2nd [place] [address] [email or web address] 03/29/2025 10:15 AM EDT Office Visit [facility] [address] [facility], [address] [place] [address] Zack Sanchez DO 22 [facility] [address] [place] [address] 05/14/2025 1:00 PM EST Office Visit [address] [facility], [address] [place] [address] Rehan Landaverde MD [address] [place] [address] Scheduled Procedures Name Priority Associated Diagnoses Date/Ti me 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 IN SENIOR MARKET INTELLIGENCE CONSULTANT Systolic congestive heart failure, unspecified HF chronicity [...] documented as of this encounter Care Teams Health Assistant Relationship Specialty Start Date End Date Marlene Harden NP 70 [place] [address] PCP - General Family Medicine 01/10/22 08/07/24 Cj Meyer DO 70 [place] [address] PCP - General Internal Medicine 08/08/24 Yue Rodrigez RN [address] [place] [address] [facility] Director Of Automation 02/21/22 06/09/23 Jennifer Dash LCSW [address] [place] [address] [facility] Social Work 02/01/23 02/11/23 Yvonne Montana [address] [place] [address] [facility] Community Health Worker 02/25/23 06/09/23 Dennis Temple MBBS [address] [place] [address] [email or web address] Primary Oncologist Hematology and Oncology 04/02/23 Gabriela Barnhart CNP 30 [place] [address] Nurse Practitioner Medical Oncology 01/16/24 documented as of this encounter Additional Source Comments The information contained in this document represents components of the legal health record. It is not the complete legal health record.[facility]
--- OUTSIDE RECORDS SUMMARY | 2025-03-09 06:26 | XMS_ITS | Encounter Summary ---
Author Organization [facility] Address [address] [place] [address] Phone Care Team Providers Care Library Manager Name Role Phone Cassie Hardensy Mook INSPECTOR FILTER TIP Primary Care Provider Yue Rodrigez RN Unavailable Jennifer Dash GREENHOUSE ASSISTANT Unavailable felisa Yvonne Montana Unavailable Dennis Temple MBBS Unavailable [phone] Gabriela Barnhart DIRECTOR VIDEO Unavailable Cj Meyer DO Primary Care Provider Encounter Details Date Type Department Care Team (Late st Contact Info) Description 12/13/2022 Procedure Pass [facility], Ct Scan - [address] [address] Social History Tobacco Use Types Packs/Day Years [...] Quit drinking second week of April 2022 Education Answer Date Recorded Are you interested in more education? Not on cornelius e 11/01/2022 Are you concerned about learning? Not on file 11/01/2022 No 11/01/2022 No 11/01/2022 Digital Access Answer Date Recorded No 12/03/2022 No 12/03/2022 Reliable internet access at home? Not on file 12/03/2022 Device with a working camera? Not on file Sex and Gender Information Value Date Recorded [...] Pulmonary, Allergy and Critical Care Medicine 10 [place] [address] Conner Sneed MD [address] [place] [address] [email or web address] 03/29/2025 10:15 AM EDT Office Visit [facility] [address] [place] [address], [address] [place] [address] Zack Sanchez DO [address] [place] [address] [place] [address] 05/14/2025 1:00 PM EST Office Visit [facility] [address], [address] [place] [address] Rehan Landaverde MD [address] [place] [address] Scheduled Procedures Name Priority Associated Diagnoses Date/Ti me 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 IN PODIATRIC MEDICINE PROFESSOR Systolic congestive heart failure, unspecified HF chronicity [...] documented as of this encounter Care Teams Library Manager Relationship Specialty Start Date End Date Marlene Harden NP 70 [place] [address] PCP - General Family Medicine 01/10/22 08/07/24 Cj Meyer DO 70 [place] [address] PCP - General Internal Medicine 08/08/24 Yue Rodrigez, VENKATA [address] [place] [address] [facility] Armor Senior Sergeant 02/21/22 06/09/23 Jennifer Dash LCSW [address] [place] [address] [facility] Social Work 02/01/23 02/11/23 Yvonne Montana [address] [place] [address] [facility] Community Health Worker 02/25/23 06/09/23 Dennis Temple MBBS [address] [place] [address] [email or web address] Primary Oncologist Hematology and Oncology 04/02/23 Gabriela Barnhart CNP [address] [place] [address] [email or web address] Nurse Practitioner Medical Oncology 01/16/24 documented as of this encounter Additional Source Comments The information contained in this document represents components of the legal health record. It is not the complete legal health record.[facility]
--- OUTSIDE RECORDS SUMMARY | 2025-03-09 06:26 | XMS_ITS | Encounter Summary ---
Author Organization [facility] Address [address] [place] [address] Phone Care Team Providers Care Education Trainer Name Role Phone Temple, Ahmastu Mccann MBBS Unavailable Pack, Gabriela SAMPLER PICKUP Unavailable Cj Meyer DO Primary Care Provider [phone] Encounter Details Date Type Department Care Team (Late st Contact Info) Description 08/30/2024 Procedure Pass [facility], Ct Scan - [facility] [address] [place] [address] Social History Tobacco Use Types Packs/Day Years [...] Upcoming Encounters Date Type Department Care Team ([facility] st Contact Info) Description 03/16/2025 9:00 AM EDT Office Visit [facility] Pulmonary, Allergy and Critical Care Medicine 10 [facility] [place] [address] Conner Sneed MD [address] [address] [email or web address] 03/29/2025 10:15 AM EDT Office Visit [facility] [address] Floor, [address] [place] [address] Zack Sanchez DO 22 [facility] [address] [place] [address] 05/14/2025 1:00 PM EST Office Visit [facility] [address] Floor, [address] [place] [address] Rehan Landaverde MD [address] [place] [address] [email or web address] Scheduled Procedures Name Priority Associated Diagnoses Date/Ti me 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 IN WIND SITE MANAGER Systolic congestive heart failure, unspecified HF chronicity documented as of this encounter Visit Diagnoses Not on filedocumented in this encounter Additional Health Concerns Infection Onset Date Last Indicated Resolved Time CoV-Risk Comment:Per note documentation 08/29/2024 08/29/2024 7:27 AM EST Assessment Noted Time PHQ-2 Depression Total Score: 2 03/28/20 22 11:32 AM EDT documented as of this encounter Care Teams Education Trainer Relationship Specialty Start Date End Date Cj Meyer DO [address] [place] [address] PCP - General Internal Medicine 08/08/24 Dennis Temple MBBS [email or web address] Primary Oncologist Hematology and Oncology 04/02/23 Gabriela Barnhart CNP 30 [place] [address] Nurse Practitioner Medical Oncology 01/16/24 documented as of this encounter Additional Source Comments The information contained in this document represents components of the legal health record. It is not the complete legal health record.[facility]
--- OUTSIDE RECORDS SUMMARY | 2025-03-09 06:26 | XMS_ITS | Encounter Summary ---
Author Organization [facility] Address [address] [place] [address] Phone Care Team Providers Care Chemical Packager Name Role Phone Temple, Ahmastu Mccann MBBS Unavailable [phone] Pack, Gabriela DROP HAMMER SET UP OPERATOR Unavailable Cj Meyer DO Primary Care Provider [phone] Encounter Details Date Type Department Care Team (Late st Contact Info) Description 11/07/2024 Procedure Pass [facility], Ct Scan - [address] [address] Social History Tobacco Use Types Packs/Day Years [...] got money to buy more. Never True 11/04/2024 Within the past 6 months the food we bought just didn't last and we didn't have enough money to get more. Never True Residential Stability Answer Date Recor ded What is your housing situation today? I have mark henry 11/04/2024 How many times have you move d in the past 12 months? Zero (I did not move) 11/04/2024 Paying for Meds Answer Date Recorded Do you have trouble paying for medicines? No 11/04/2024 Paying Utility Bills Answer Date Record ed Do you have trouble paying your heating or elect ricity bill? No 11/04/2024 Transportation Answer Date Recorded Has the lack of transportati on kept you from medical appointments or from getting medications? No 11/04/2024 Digital Access Answer Date Recorded No 11/04/2024 Yes 11/04/2024 Do you have reliable internet access at home? Ye s 11/04/2024 Do you have a device (e.g., phone, tablet, computer) with a working camera? Yes 11/04/2024 Intimate Partner Violence Answer Date R ecorded Are you denied basic needs s uch as food, clothing, or medical care? No 11/04/2024 In the past 12 months have y ou been in a relationship with a person who hurts, threatens, or tries to control you? No 11/04/2024 Are you denied basic needs s uch as food, clothing, or medical care? No 11/04/2024 In the past 12 months have y ou been in a relationship with a person who hurts, threatens, or tries to control you? No 11/04/2024 Sex and Gender Information Value Date Recorded [...] Pulmonary, Allergy and Critical Care Medicine 10 [facility] [place] [address] Conner Sneed MD [address] [address] [email or web address] 03/29/2025 10:15 AM EDT Office Visit [facility] [address] Floor, [address] [place] [address] Zack Sanchez DO 22 [facility] [address] [place] [address] 05/14/2025 1:00 PM EST Office Visit [facility] [address] Floor, [address] [place] [address] Rehan Landaverde MD [address] [place] [address] [email or web address] Scheduled Procedures Name Priority Associated Diagnoses Date/Ti me 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 IN UNDERGROUND TRUCK OPERATOR Systolic congestive heart failure, unspecified HF chronicity documented as of this encounter Visit Diagnoses Not on filedocumented in this encounter Additional Health Concerns Assessment Noted Time PHQ-2 Depression Total Score: 2 03/28/20 22 11:32 AM EDT documented as of this encounter Care Teams Chemical Packager Relationship Specialty Start Date End Date Cj Meyer DO [address] [place] [address] PCP - General Internal Medicine 08/08/24 Dennis Temple MBBS [email or web address] Primary Oncologist Hematology and Oncology 04/02/23 Gabriela Barnhart CNP [address] [place] [address] [email or web address] Nurse Practitioner Medical Oncology 01/16/24 documented as of this encounter Additional Source Comments The information contained in this document represents components of the legal health record. It is not the complete legal health record.[facility]
--- OUTSIDE RECORDS SUMMARY | 2025-03-09 06:26 | XMS_ITS | Encounter Summary ---
Author Organization [facility] Address [address] [place] [address] Phone Care Team Providers Care Assorter Name Role Phone Marlene Harden STRING LASTER Primary Care Provider [phone] Yue Rodrigez RN Unavailable Yvonne Montana Unavailable [email or web address] Dennis Temple MBBS Unavailable [phone] Gabriela Barnhart BUILDING CUSTODIAN Unavailable Cj Meyer DO Primary Care Provider [phone] Encounter Details Date Type Department Care Team (Late st Contact Info) Description 03/03/2023 Procedure Pass [facility], Ct Scan - [address] [address] Social History Tobacco Use Types Packs/Day Years [...] Date of Assessment Author No Risk Indicated 03/03/2023 3:07 PM EDT Alycia Mahajan RN * Richardson Suicide Severity Rating Scale (Screener/Recent Self-Report) Question Answer Date of Assessment Author 1. Wish to be (Past 1 Month) No 03/03/2023 3:07 PM EDT Alycia Mahajan, VENKATA 2. Non-Specific Active Suici meghan Thoughts (Past 1 Month) No 03/03/2023 3:07 PM EDT Enedelia Mahajan RN 6. Suicidal Behavior (Lifetime) No 3:07 PM EDT Alycia Mahajan RN documented as of this encounter Plan of Treatment Upcoming Encounters Date Type Department Care Team (Late st Contact Info) Description 03/16/2025 9:00 AM EDT Office Visit [facility] Pulmonary, Allergy and Critical Care Medicine [address] [place] [address] Conner Sneed MD [address] [place] [address] [email or web address] 03/29/2025 10:15 AM EDT Office Visit [facility] [address] [place] [address] 3rd [facility], [address] [place] [address] Zack Sanchez DO [address] [place] [address] 05/14/2025 1:00 PM EST Office Visit [facility] [address] [place] [address] 3rd Floor, [address] [place] [address] Rehan Landaverde MD [address] [place] [address] [email or web address] Scheduled Procedures Name Priority Associated Diagnoses Date/Ti me 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 IN INVESTMENT ADVISOR Systolic congestive heart failure, unspecified HF chronicity [...] documented as of this encounter Care Teams Assorter Relationship Specialty Start Date End Date Marlene Harden NP [address] [place] [address] PCP - General Family Medicine 01/10/22 08/07/24 Cj Meyer DO 70 [place] [address] PCP - General Internal Medicine 08/08/24 Yue Rodrigez, VENKATA [address] [place] [address] [email or web address] Corrosion Control Technician 02/21/22 06/09/23 Yvonne Montana [address] [place] [address] [email or web address] [facility] Community Health Worker 02/25/23 06/09/23 Dennis Temple MBBS [address] [place] [address] [email or web address] Primary Oncologist Hematology and Oncology 04/02/23 Gabriela Barnhart CNP [address] [place] [address] [email or web address] Nurse Practitioner Medical Oncology 01/16/24 documented as of this encounter Additional Source Comments The information contained in this document represents components of the legal health record. It is not the complete legal health record.[facility]
--- OUTSIDE RECORDS SUMMARY | 2025-03-09 06:26 | XMS_ITS | Encounter Summary ---
Author Organization [facility] Address [address] [facility] [address] [place] [address] Phone Care Team Providers Care Telephone Service Adviser Name Role Phone Olegario Guy MD Primary Care Provider [phone] Marlene Harden DIESEL MECHANIC HELPER Primary Care Provider Yue Rodrigez RN Unavailable Jennifer Dash LIQUEFIED NATURAL GAS OPERATOR Unavailable [email or web address] Yvonne Montana Unavailable Dennis Temple MBBS Unavailable Gabriela Barnhart MANAGER AUDIO Unavailable Cj Meyer DO Primary Care Provider Encounter Details Date Type Department Care Team (Latest Contact Info) Description 11/25/2019 Transcribe Orders Virtual Department [address] [place] [address] Marlene Harden, DIESEL MECHANIC HELPER [address] [place], [place] [phone] Atypical chest pain (Primary Dx) Social History Tobacco Use [...] Pulmonary, Allergy and Critical Care Medicine [address] [facility] [place] [address] Conner Sneed MD [address] [facility] 2nd [place] [address] [email or web address] 03/29/2025 10:15 AM EDT Office Visit [facility] [address] [place] [address] 3rd [facility], [address] [place] [address] Zack Sanchez DO [address] [facility] [address] [place] [address] 05/14/2025 1:00 PM EST Office Visit [facility] [address] 3rd [facility], [address] [place] [address] Rehan Landaverde MD [address] [place] [address] Scheduled Procedures Name Priority Associated Diagnoses Date/Ti me 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 IN FORMING MACHINE OPERATOR Systolic congestive heart failure, unspecified HF chronicity documented as of this encounter Visit Diagnoses Diagnosis Atypical chest pain- Primary Other chest pain documented in this encounter Additional Health Concerns [...] documented as of this encounter Care Teams Telephone Service Adviser Relationship Specialty Start Date End Date Olegario Guy MD [address] [facility] [address] [place] [address] [email or web address] PCP - General Family Medicine 03/28/20 01/09/22 Marlene Harden, DIESEL MECHANIC HELPER 70 [place] [address] PCP - General Family Medicine 01/10/22 08/07/24 Cj Meyer DO [address] [place] [address] PCP - General Internal Medicine 08/08/24 Yue Rodrigez RN [address] [place] [address] [email or web address] [facility] Keg Washer 02/21/22 06/09/23 Jennifer Dash LCSW [address] [place] [address] [email or web address] [facility] Social Work 02/01/23 02/11/23 Yvonne Montana [address] [place] [address] [email or web address] [facility] Community Health Worker 02/25/23 06/09/23 Dennis Temple MBBS [address] [place] [phone] [email or web address] Primary Oncologist Hematology and Oncology 04/02/23 Gabriela Barnhart CNP [address] [place] [address] [email or web address] Nurse Practitioner Medical Oncology 01/16/24 documented as of this encounter Additional Source Comments The information contained in this document represents components of the legal health record. It is not the complete legal health record.[facility]
--- OUTSIDE RECORDS SUMMARY | 2025-03-09 06:26 | XMS_ITS | Encounter Summary ---
Author Organization [facility] Address [address] [place] [address] Phone Care Team Providers Care Child Welfare Social Worker Name Role Phone Cassie Hardensy Mook CODING AUDITOR Primary Care Provider Yue Rodrigez RN Unavailable Jennifer Dash CHRISTIAN SCIENCE HEALER Unavailable fleisa Yovnne Montana Unavailable Dennis Temple MBBS Unavailable [phone] Gabriela Barnhart FLOAT PHLEBOTOMIST Unavailable Cj Meyer DO Primary Care Provider Encounter Details Date Type Department Care Team (Late st Contact Info) Description 12/13/2022 Procedure Pass [facility], Ct Scan - [address] [address] Social History Tobacco Use Types Packs/Day Years [...] Pulmonary, Allergy and Critical Care Medicine 10 [place] [address] Conner Sneed MD [address] [place] [address] [email or web address] 03/29/2025 10:15 AM EDT Office Visit [facility] [address] [place] [address], [address] [place] [address] Zack Sanchez DO [address] [place] [address] [place] [address] 05/14/2025 1:00 PM EST Office Visit [facility] [address], [address] [place] [address] Rehan Landaverde MD [address] [place] [address] Scheduled Procedures Name Priority Associated Diagnoses Date/Ti me 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 IN GEOGRAPHIC AREA INTELLIGENCE OFFICER Systolic congestive heart failure, unspecified HF [...] documented as of this encounter Care Teams Child Welfare Social Worker Relationship Specialty Start Date End Date Marlene Harden NP [address] [place] [address] PCP - General Family Medicine 01/10/22 08/07/24 Cj Meyer DO 70 [place] [address] PCP - General Internal Medicine 08/08/24 Yue Rodrigez, VENKATA [address] [place] [address] [facility] Retail Clerk 02/21/22 06/09/23 Jennifer Dash LCSW [address] [place] [address] [facility] Social Work 02/01/23 02/11/23 Yvonne Montana [address] [place] [address] [facility] Community Health Worker 02/25/23 06/09/23 Dennis Temple MBBS [address] [place] [address] [email or web address] Primary Oncologist Hematology and Oncology 04/02/23 Gabriela Barnhart CNP [address] [place] [address] [email or web address] Nurse Practitioner Medical Oncology 01/16/24 documented as of this encounter Additional Source Comments The information contained in this document represents components of the legal health record. It is not the complete legal health record.[facility]
--- OUTSIDE RECORDS SUMMARY | 2025-03-09 06:26 | XMS_ITS | Encounter Summary ---
Author Organization [facility] Address [address] [facility] [address] [place] [address] Phone Care Team Providers Care Switchgear Repairer Name Role Phone Marlene Harden NP Primary Care Provider [phone] Yue Rodrigez RN Unavailable Jennifer Dash OPERATIONS TRAINER Unavailable felisa Yvonne Montana Unavailable Dennis Temple MBBS Unavailable [phone] Gabriela Barnhart WAITER/WAITRESS FORMAL Unavailable Cj Meyer DO Primary Care Provider [phone] Encounter Details Date Type Department Care Team (Late st Contact Info) Description 06/21/2022 Procedure Pass [facility] Cardiovascular And Interventional Radiology [address] [place] [address] Social History Tobacco Use Types Packs/Day Years [...] Description 03/16/2025 9:00 AM EDT Office Visit [facility] Pulmonary, Allergy and Critical Care Medicine [address] [facility] [place] [address] Conner Sneed MD [address] [facility] 2nd [place] [address] [email or web address] 03/29/2025 10:15 AM EDT Office Visit [facility] [address] 3rd [facility], [address] [place] [address] Zack Sanchez DO 22 [facility] [address] [place] [address] 05/14/2025 1:00 PM EST Office Visit [address] 3rd [facility], [address] [place] [address] Rehan Landaverde MD [address] [place] [address] [email or web address] Scheduled Procedures Name Priority Associated Diagnoses Date/Ti me 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 IN TOY MECHANIC Systolic congestive heart failure, unspecified HF chronicity [...] documented as of this encounter Care Teams Switchgear Repairer Relationship Specialty Start Date End Date Marlene Harden NP 70 [place] [address] PCP - General Family Medicine 01/10/22 08/07/24 Cj Meyer DO 70 [place] [address] PCP - General Internal Medicine 08/08/24 Yue Rodrigez, VENKATA [address] [place] [address] [facility] Nutrition Services Worker 02/21/22 06/09/23 Jennifer Dash LCSW [address] [place] [address] [facility] Social Work 02/01/23 02/11/23 Yvonne Montana [address] [place] [address] [facility] Community Health Worker 02/25/23 06/09/23 Dennis Temple MBBS [address] [place] [address] [email or web address] Primary Oncologist Hematology and Oncology 04/02/23 Gabriela Barnhart CNP [address] [place] [address] Nurse Practitioner Medical Oncology 01/16/24 documented as of this encounter Additional Source Comments The information contained in this document represents components of the legal health record. It is not the complete legal health record.[facility]
--- OUTSIDE RECORDS SUMMARY | 2025-03-09 06:26 | XMS_ITS | Encounter Summary ---
Author Organization [facility] Address [address] [facility] [address] [place] [address] Phone Care Team Providers Care Barrel Inspector Name Role Phone Marlene Harden CLEANER WINDOW Primary Care Provider Yue Rodrigez RN Unavailable Yvonne Montana Unavailable [email or web address] Dennis Temple MBBS Unavailable [phone] Gabriela Barnhart COOK SHIP Unavailable Cj Meyer DO Primary Care Provider [phone] Encounter Details Date Type Department Care Team (Late st Contact Info) Description 02/22/2023 Procedure Pass [facility] Endoscopy Admitting Dept Virtual Department 30 [place] [address] Social History Tobacco Use Types Packs/Day Years [...] Pulmonary, Allergy and Critical Care Medicine 10 [place] [address] Conner Sneed MD [address] [place] [address] [email or web address] 03/29/2025 10:15 AM EDT Office Visit [facility] [address] [place] [address], [address] [place] [address] Zack Sanchez DO [address] [place] [address] 05/14/2025 1:00 PM EST Office Visit [facility] [address], [address] [place] [address] Rehan Landaverde MD [address] [place] [address] Scheduled Procedures Name Priority Associated Diagnoses Date/Ti me 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 IN MANAGER MECHANICAL Systolic congestive heart failure, unspecified HF chronicity documented as of this encounter Visit Diagnoses Not on filedocumented in this encounter Additional Health Concerns Infection Onset Date Last Indicated Resolved Time CoV-Risk Comment:Per note documentation 07/17/2024 07/17/2024 8:52 AM EST CoV-Risk 08/08/2024 08/08/2024 08/19/2024 1:22 AM EST RSV 08/08/2024 08/08/2024 08/15/2024 1:2 2 AM EST CoV-Risk Comment:Per note documentation 08/29/2024 08/29/2024 7:27 AM EST Assessment Noted Time PHQ-2 Depression Total Score: 2 03/28/20 11:32 AM EDT documented as of this encounter Care Teams Barrel Inspector Relationship Specialty Start Date End Date Marlene Harden NP [address] [place] [address] PCP - General Family Medicine 01/10/22 08/07/24 Cj Meyer DO 70 [place] [address] PCP - General Internal Medicine 08/08/24 Yue Rodrigez RN [address] [place] [address] iCMP Mattress Specialist 02/21/22 06/09/23 Yvonne Montana 10 [place] [address] [facility] Community Health Worker 02/25/23 06/09/23 Dennis Temple MBBS [address] [place] [address] [email or web address] Primary Oncologist Hematology and Oncology 04/02/23 Gabriela Barnhart CNP [address] [place] [address] Nurse Practitioner Medical Oncology 01/16/24 documented as of this encounter Additional Source Comments The information contained in this document represents components of the legal health record. It is not the complete legal health record.[facility]
--- OUTSIDE RECORDS SUMMARY | 2025-03-09 06:26 | XMS_ITS | Clinical Summary ---
Author Organization [facility] Address [address] [place] [address] Care Team Providers Care Food Production Machine Operator Name Role Phone Marlene Harden NP Primary Care Provider [phone] Social History Tobacco Use Types Packs/Day Years [...] patient's age to complete this topic Insurance [facility] Plan Care Teams Food Production Machine Operator Relationship Specialty Start Date End Date Marlene Harden NP [address] [place] [address] PCP - General Nurse Practitioner 03/05/23
--- OUTSIDE RECORDS SUMMARY | 2025-03-09 06:26 | XMS_ITS | Clinical Summary ---
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 Usually just in the am and sometimes pm 2 Active OXYGEN-AIR DELIVERY SYSTEMS MISC 2 L by Intranasal route continuous. 2L at rest, 3 L upon ambulation via nasal cannula. Vendor Michael 2 Active atorvastatin (LIPITOR) 40 MG tabletIndication s:Atherosclerosi s of [place] coronary artery of [place] heart without angina pectoris TAKE 1 TABLET BY MOUTH EVERY DAY 90 tablet 3 3 Active amiodarone (PACERONE) 200 MG tabletIndication s:Paroxysmal atrial fibrillation TAKE 1 TABLET BY MOUTH EVERY DAY 90 tablet 3 3 Active albuterol (VENTOLIN HFA) 90 mcg/actuation inhaler Inhale 2 puffs into the lungs every 6 (six) hours as needed for wheezing. 18 g 5 4 Active buPROPion (WELLBUTRIN SR) 150 MG SR 12 hr tablet 150 mg 2 (two) times a day. 4 Active albuterol 2.5 mg /3 mL (0.083 %) nebulizer solution Take 3 mL (2.5 mg total) by nebulization every 4 (four) hours as needed for shortness of breath/dyspnea. 5 Active ipratropium-albu teroL (DUONEB) 0.5-3 mg (2.5 mg base)/3 mL nebulizer solution Take 3 mL by nebulization 4 (four) times a day. 5 Active fluticasone-umec lidin-vilanter (TRELEGY ELLIPTA) 200-62.5-25 mcg inhaler Inhale 1 puff into the lungs daily. Active rivaroxaban (XARELTO) 20 mg Tab Take 1 tablet every day by oral route in the evening. 3 Active oxyCODONE-acetam inophen (PERCOCET) 5-325 mg per tablet Take 1 tablet by mouth every 6 (six) hours as needed for pain (specific location in comments). Partial fill ok 10 tablet 5 Active torsemide (DEMADEX) 20 MG tablet 5 Active levETIRAcetam (KEPPRA) 750 MG IMMEDIATE release tablet Take 750 mg by mouth 2 (two) times a day. Active ferrous gluconate 324 mg (38 mg elemental) tablet Take 1 tablet (324 mg total) by mouth 3 (three) times a week on Saturday, Saturday, Saturday. 5 Active ascorbic acid, vitamin C, (VITAMIN C) 500 MG tablet Take 1 tablet (500 mg total) by mouth 3 (three) times a week on Saturday, Saturday, Saturday. 5 Active sacubitriL-valsa rtan (ENTRESTO) 24-26 mg per tablet Take 1 tablet by mouth 2 (two) times a day. 5 Active metoprolol succinate (TOPROL-XL) 25 MG 24 hr tablet Take 0.5 tablets (12.5 mg total) by mouth daily. 5 Active XARELTO 10 mg tablet Take 10 mg by mouth daily. 5 Active roflumilast (DALIRESP) 500 mcg Tab Take 1 tablet (500 mcg total) by mouth daily. 30 tablet 4 5 Active Active Problems Problem Noted Date Diagnosed Date Hypotension 11/05/2024 Assessment & Plan (11/06/2024 4:37 PM EDT): -Presented hypotensive from cardiology appt w/ JOSE -Seemed to be very dry with JOSE, over diuresed, he was previously on a extended course of prednisone with likely appropriate taper but could be at risk for adrenal insufficiency, thankfully morning cortisol was wnl. His renal function has recovered to where it was in late August. His blood pressure readings are excellent. His amlodipine is on hold, his partner Candace states that was the plan when he left the cardiology office and I think that is reasonable at this time. Assessment & Plan (11/05/2024 8:08 AM EDT): -Presented hypotensive from cardiology appt w/ JOSE -Seemed to be very dry with JOSE, over diuresed, he was previously on a extended course of prednisone with likely appropriate taper but could be at risk for adrenal insufficiency, thankfully morning cortisol was wnl. -Anticipate improvement with gentle hydration today cr down to 1.9, would like to hydrate a bit more as he may not be drinking enough orally, if better can likely go tomorrow. Assessment & Plan (11/05/2024 1:26 AM EDT): Pt prseented after noted to be hypotensive at cardio apt To renal. He is total volume down, over diuresed, he was previously on a extended course of prednisone with likely appropriate taper but could be at risk for adrenal insufficiency, he is on multiple medications which could have potentiating effects with the decreasing renal function. Anticipate improvement Will get morning cortisol level A-fib 11/04/2024 Assessment & Plan (11/06/2024 4:37 PM EDT): HR controlled Xarelto 20 mg amiodarone 200 mg metoprolol 25 mg qd Assessment & Plan (11/05/2024 8:08 AM EDT): HR controlled Xarelto 20 mg amiodarone 200 mg metoprolol 25 mg qd Assessment & Plan (11/05/2024 1:13 AM EDT): HR controlled Xarelto 20 mg qd amiodarone 200 mg qd metoprolol 25 mg qd monitor for rate control Heart failure with reduced ejection fraction Assessment & Plan (12/14/2024 11:13 AM EDT): This patient is a class III heart failure patient and would clearly qualify for a CardioMEMS implant Assessment & Plan (11/12/2024 1:34 PM EDT): Continue torsemide 20 mg daily. Follow-up 1 month. Heart failure teaching points reviewed. He was also recommended a CardioMEMS as an implant. He is also going to discuss this with his assistant hall director in 1 month to see if he would like to proceed. Assessment & Plan (11/06/2024 4:37 PM EDT): -last stable in Aug on lasix 40 mg qd entresto 24-26 mg bid Most recent echo July showed recovered EF 65 to 70% general good cardiac function. Do not see any additional echocardiograms on the discharge paperwork from [facility] or [facility] where he has been. -gaining wt at care home and seemed to be overdiuresed in recent days in attempt to improve his symptoms. -Hold diuretic therapy for now -Stop metolazone -resume entresto and BB today. Bps are stable. Will ask the cardiology team to see him tomorrow to help optimize his medications to avoid the situation going forward. Considering additional imaging to r/o other fluid overload, but the US done in the ED is quite clear there is no ascites. He has had many CTs, and I am not in a mcclain to give him another. Assessment & Plan (11/05/2024 8:08 AM EDT): -last stable in Aug on lasix 40 mg qd entresto 24-26 mg bid Most recent echo July showed recovered EF 65 to 70% general good cardiac function -gaining wt at care home and seemed to be overdiuresed in recent days in attempt to improve his symptoms. -Hold diuretic therapy for now with plan to restart at his prior dose of 40 mg daily once recovered -Stop metolazone -resume entresto and BB today. Bps are stable Assessment & Plan (11/05/2024 1:13 AM EDT): Was last stable in Aug on lasix 40 mg qd entresto 24-26 mg bid Most recent echo July showed recovered EF 65 to 70% general good cardiac function During his care home stay stay 1 month well being significantly sedentary and eating cooked meals 3 times daily he gained significant weight it was thought perhaps this was edema weight and thus he was increasingly diuresed. He now appears to be over diuresed and dry. I do believe the weight appears to have been true weight gain, adipose tissue. Hold diuretic therapy for now with plan to restart at his prior dose of 40 mg daily once recovered Stop metolazone Hold Entresto beta-emre for tonight plan to restart at low doses tomorrow Chronic bronchitis 11/04/2024 Assessment & Plan (11/06/2024 4:37 PM EDT): Chronic COPD on home O2 2L and stable Also has been on steroids at care home. This may be contributing to his weight gain. Being moderately anemic probably is not helping. Continue kulwinder. He had a CT of the chest end of August that did not show any other findings than emphysema. His echocardiogram did not show signs of pulmonary hypertension. Chronic pain Continue chronic oxy Assessment & Plan (11/05/2024 8:08 AM EDT): Chronic COPD on home O2 2L and stable Also has been on steroids at care home. Continue kulwinder. Chronic pain Continue chronic oxy Assessment & Plan (11/05/2024 1:26 AM EDT): Chronic COPD on home O2 2L and stable Also has been on steroids at care home. Continue kulwinder. Chronic pain Continue chronic oxy Acute on chronic respiratory failure 08/30/2024 Assessment & Plan (08/31/2024 9:42 AM EST): Has extensive underlying history of COPD, as well as prior heart failure with reduced ejection fraction, now recovered with normal recent echo 07/2024, patient is on chronic 2 L of O2 Presented to the ED with worsening shortness of breath. Completed a course of steroids approximately 1 week before presentation. Current O2 requirement at baseline but he is now wheezing on exam. CTPA chest was unremarkable. Recent history of RSV (positive on 08/08) and hospitalization for ICH Respiratory symptoms appear related to COPD exacerbation and poor pulmonary reserve in setting of recent RSV. No signs of CHF or pneumonia clinically. VBG in the ED showed normal pH and pCO2 of 65 consistent with a compensated respiratory acidosis --Will give pulse of steroids starting with prednisone 60 mg daily --Continue scheduled DuoNebs, O2 support as needed --PT/OT --Outpatient follow-up with Dr Chapman, consider inpatient consult if further concerns Assessment & Plan (08/30/2024 5:57 PM EST): -Has extensive underlying history of COPD, as well as prior heart failure with reduced ejection fraction, now recovered with normal recent echo 07/2024, patient is on chronic 2 L of O2 -Unclear etiology at this time, patient does not have overt signs of heart failure including no pulmonary edema on CT scan of the chest, along with no pulmonary embolism, BNP at 254, troponins are normal. -On chronic 2 L of O2, noted to be hypoxic with minimal exertion in the ER per PT requiring increased oxygen however at rest patient's sats are consistently at 100% on 2 L of O2 which questions patient's need for chronic oxygen use at this time. -I suspect this to be secondary to deconditioning on the patient with multiple recent hospitalizations for intraparenchymal hemorrhage, COPD exacerbation due to RSV and rehab. 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 Hypodensity in the right basal ganglia likely related to evolving changes from previously seen parenchymal hemorrhage. Existent right to left midline shift measuring approximately 0.3 cm similar to slightly decreased from prior exam. 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 Immediately prior to that patient had a hospitalization for COPD exacerbation and suspected seizure where patient was placed on Keppra. Was discharged on 08/03/2024 to rehab however redeveloped worsening headache, found to have worsening vasogenic edema and subsequently readmitted at [facility] on 08/08/2024. Hospital course was complicated by COPD exacerbation secondary to RSV virus with patient was subsequently discharged on a steroid taper to [facility] rehab. -- No new concerns. His DOAC has been resumed --Continue Keppra Assessment & Plan (08/30/2024 5:57 PM EST): -CT head 08/30/2024: No acute intracranial hemorrhage, midline shift, or mass effect. Hypodensity in the right basal ganglia likely related to evolving changes from previously seen parenchymal hemorrhage. Existent right to left midline shift measuring approximately 0.3 cm similar to slightly decreased from prior exam. 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 Immediately prior to that patient had a hospitalization for COPD exacerbation and suspected seizure where patient was placed on Keppra. -Was discharged on 08/03/2024 to rehab however redeveloped worsening headache, found to have worsening vasogenic edema and subsequently readmitted at [facility] on 08/08/2024. Hospital course was complicated by COPD exacerbation secondary to RSV virus with patient was subsequently discharged on a steroid taper to [facility] rehab. -Through reviewing discharge records from [facility] on 08/13/2024, recommendations from neurology were to resume Xarelto tentatively on 08/26/2024 with discontinuation of daily aspirin, confirmed with patients candace that they were instructed to resume xarelto on 08/26, and discontinue aspirin, which they have. Seizure 07/18/2024 CHF (congestive heart failure) 07/17/2024 Assessment & Plan (08/31/2024 9:42 AM EST): He has a history of systolic heart failure with prior EF 25-30% on echo in 2021. Most recent echo was on 08/01 showing EF 65-70%, trace mitral regurgitation, trace aortic regurgitation normal IVC. No signs of fluid overload on exam -- Continue usual medications including Entresto, Lasix and Toprol-XL Assessment & Plan (07/17/2024 5:16 PM EST): Known reduced EF and last echo showed indeterminate diastolic function Patient takes Entresto which will be on hold presently for JOSE. Patient is not on full GDMT .will hold off starting spironolactone in the setting of JOSE and hyperkalemia, may benefit from SGLT2i Will order echocardiogram this may not be available over the weekend Acute and chronic respiratory failure with hypox ia 07/17/2024 Assessment & Plan (07/17/2024 5:16 PM EST): Patient with history of COPD, still smoking. Also history of heart failure-last echo on file from 02/26 showed an EF of 30% and indeterminate diastolic dysfunction. Normally on 2 L at home, was found to be hypoxic with sats in the 80s-was off of his oxygen when EMS arrived Has been more short of breath over the last 3 days with chills increased cough and increased sputum production with sputum color change, green-yellow. States his is also sick with an infection. proBNP is 9200, troponins low White blood cell count within normal limits, chest x-ray with diffuse interstitial prominence possibly representing pulmonary edema with patchy opacities in the left lower lung and right mid and lower lung possibly representing superimposed pneumonia. Influenza and SARS-CoV-2 PCR negative He told the ED provider that he had lower extremity edema but denies this to me, unsure if he has had significant orthopnea. He does state he has not been taking his Lasix regularly and that his weight is up Patient is afebrile in the emergency department with borderline low blood pressure. He was given IV diuretics and nebulizer treatment. I am concerned about the possibility of infection in the setting of his symptoms, will add antibiotics Plan -Will diurese, monitor electrolytes and creatinine closely -Check ESR CRP procalcitonin -Monitor closely for fever or leukocytosis -Ceftriaxone azithromycin -repeat chest x-ray -night monitor -Supplemental oxygen Other hyperlipidemia 06/18/2024 Assessment & Plan (06/18/2024 12:36 PM EST): LDL goal less than 70 due to CAD. Most recent labs for review are approximately 2 years old and show an LDL of 149. Labs thereafter show elevated liver enzymes. Asked patient to update fasting lipids and LFTs to see if any changes need to be made. Patient has continued on atorvastatin 40 mg daily which he is tolerating well which we will continue at this time. Follow-up in 3 months. Oxygen dependent 10/31/2023 Anemia 04/03/2023 Assessment & Plan (11/06/2024 4:37 PM EDT): - fatigue increased dyspnea with exertion that was of insidious onset over several weeks in late September until now -labs from care home 11 down to 7s, now in 8s. - low iron, low transferrin sat, ferritin on the lower normal side but not as bad as he was in 2022. Was following with the hematology oncology office for iron deficiency anemia. He did receive iron infusions. Will give before he leaves. b12 and folate are wnl, check FIT(pend), haptoglobin, LDH and bili do not suggest hemolysis. - noted 1 previous episode of unexplained severe anemia down to a hemoglobin of 5 in February 2023 after extensive evaluation with endoscopies and VCE no source was found anemia. Will need to follow-up with GI in the office. - jaxon fan cautiously Assessment & Plan (11/05/2024 8:08 AM EDT): - fatigue increased dyspnea with exertion that was of insidious onset over several weeks in late September until now -labs from care home 11 down to 7s, now in 8s, may be some hemoconcentration but steady overnight, no active bleeding noted - low iron, checking other anemia indices, b12 and folate are wnl, check FIT, haptoglobin, LDH - noted 1 previous episode of unexplained severe anemia down to a hemoglobin of 5 in February 2023 after extensive evaluation with endoscopies and VCE no source was found anemia - ct meng cautiously Assessment & Plan (11/05/2024 1:13 AM EDT): Will that patient had fatigue increased dyspnea with exertion that was of insidious onset over several weeks in late September until now Labs provided by the care home reveal a drop in hemoglobin during that same time from 11 down to sevens. Hemoglobin subsequently increased likely hemoconcentration given the overdiuresis. Anticipate he is indeed quite anemic and this will be revealed after we rehydrate him We will order iron B12 and folate reticulocyte count and FIT testing to start. He has had 1 previous episode of unexplained severe anemia down to a hemoglobin of 5 in February 2023 after extensive evaluation with endoscopies and capsule no source was found anemia resolved after transfusions not recur Assessment & Plan (07/10/2023 10:04 AM EST): Iron deficiency anemia. Etiology of iron deficiency is not clear at this time although it is likely multifactorial. Most recent GI evaluation did not show any evidence of bleeding issues. He takes oral iron supplement once daily. He responded very well to IV iron infusion with resolution of his anemia and I reassured him about this. PLAN: Continue oral iron supplements once daily Return for follow-up in 6 months with labs and sooner if necessary Thank you very much for allowing me to participate in his care Assessment & Plan (04/03/2023 10:33 AM EDT): Iron deficiency anemia. Etiology of iron deficiency is not clear at this time although it is likely multifactorial. Most recent GI evaluation did not show any evidence of bleeding issues. Patient has been on oral iron supplements but continues to be significantly anemic and iron deficient and is a candidate for IV iron infusions. PLAN: Schedule a course of IV iron infusions Continue oral iron supplements once daily Check folate level with next blood work Return for follow-up in 3 months with labs Thank you very much for allowing me to participate in his care Thrombocytosis 04/03/2023 Assessment & Plan (07/10/2023 10:03 AM EST): Patient has chronic borderline intermittent thrombocytosis which is likely secondary to iron deficiency anemia. I do not think that any further diagnostic intervention is necessary at this time in this regard. Thrombocytosis usually resolves once iron deficiency is resolved. I recommended to continue to monitor it for now. Most recent CBC showed normal platelet count and I reassured him about this. PLAN: Continue to monitor platelet count for now Return for follow-up in 6 months with labs Thank you very much for allowing to participate in his care Assessment & Plan (04/03/2023 10:33 AM EDT): Patient has chronic borderline thrombocytosis which is likely secondary to iron deficiency anemia. I do not think that any further diagnostic intervention is necessary at this time in this regard. Thrombocytosis usually resolves once iron deficiency is resolved. I recommended to continue to monitor it for now. PLAN: Continue to monitor platelet count for now Return for follow-up in 3 months with labs Thank you very much for allowing to participate in his care JOSE (acute kidney injury) 03/03/2023 Assessment & Plan (11/06/2024 4:37 PM EDT): -likely prerenal in nature given the hypotension and increased diuretics. With holding the diuretics and giving him hydration, as above this is improving. As expected he put on some weight. Assessment & Plan (11/05/2024 8:08 AM EDT): -likely prerenal in nature given the hypotension and increased diuretics. - ct IVF for 1.5 more L Also requested Lyubov labs Assessment & Plan (11/05/2024 1:13 AM EDT): Appears to have come on over the past several days presumably prerenal in nature given the hypotension and increased diuretics. Begin IV fluids and will recheck labs in the morning Also requested Lyubov labs Assessment & Plan (07/17/2024 5:16 PM EST): Patient presents with JOSE, creatinine 1.6, increased from usual baseline of 1.2, also has hyperkalemia, potassium of 5.8 for which he was given Lokelma Suspect cardiorenal syndrome in the setting of acute volume overload, CHF with known reduced ejection fraction, elevated proBNP Follow-up BMP a.m., diuresis as above, consult nephrology if patient fails to improve, will repeat potassium tonight Assessment & Plan (03/03/2023 10:29 PM EDT): Jose of unclear etiology FeNa is pre-renal but this is not always reliable and pt gives no hx of dehydration He did start entresto x1 dose prior to presentation, he is also newly on pantoprazole which could cause AIN. I have ordered Urine for Eo's and will also request a urine microscopy as well as Nephrology consult. He is taking adequate PO has abundant BP and thus given hx of chf I have not added any fluid at this time, beyond what he has received. Finally I will get a renal doppler looking for YESSI as BP's are very difficult to control and pt has known vascular diease already. Right lower quadrant abdominal pain 03/03/2023 Assessment & Plan (03/03/2023 10:36 PM EDT): With hx of 10 days of significant constipation after colonoscopy. Will start miralax Doubt pain is related to JOSE other than possible hypovolemia. Symptomatic anemia 02/21/2023 Assessment & Plan (02/21/2023 1:17 AM EDT): Normocytic. Endorses dark-colored stools (but not black) over the past month. Highest suspicion is that of chronic GI loss from Xarelto. Last colonoscopy 4-5 years ago. We will transfuse 2 units and follow a posttransfusion hemoglobin. We will consult gastroenterology. Atherosclerosis of coronary artery 07/12/2022 Assessment & Plan (06/18/2024 12:33 PM EST): Proven by cardiac cath 06/2022-occluded RCA. He denies any symptoms concerning for angina at this time. Continue to optimize cardiovascular risk factors including lipids, BP, tobacco use as discussed. Follow-up in 3 months. Chronic pain syndrome 04/30/2022 Overview (04/30/2022): Due to falling 30 feet out of a tree at work. Mild opioid dependence without abuse. Assessment & Plan (07/17/2024 5:16 PM EST): Takes low-dose oxycodone which we will continue Assessment & Plan (03/03/2023 10:34 PM EDT): On chronic opiate Continue such Assessment & Plan (05/01/2022 4:17 PM EDT): Patient prescribed Percocet 5/325, 56 every 2 weeks, checked PDMP Oxycodone 5 mg every 6 hours as needed ordered Usual gabapentin ordered Hypertension 04/30/2022 Assessment & Plan (12/14/2024 11:12 AM EDT): Mildly elevated today but recheck was lower Assessment & Plan (11/12/2024 1:32 PM EDT): Amlodipine has been discontinued. He is currently on torsemide 20 mg daily, Entresto low-dose twice daily and metoprolol 12.5 mg daily. We discussed discontinuing Entresto altogether, EF normal on most recent echo 07/2024, however, patient is completely asymptomatic at this time. His blood pressure today is perfectly controlled 120s, and patient has been asymptomatic despite readings readings in the low 100s to 90s systolic at the rehab. This is low normal currently and we are going to make no medication changes today to try to keep above-stated meds on board. If patient becomes symptomatic or systolics <90, asked patient to call the office at which time we will discontinue Entresto or metoprolol. Continue to adequately hydrate and monitor these numbers. Follow-up 1 month. Assessment & Plan (08/31/2024 9:42 AM EST): BP controlled -- Continue amlodipine, metoprolol and Entresto Assessment & Plan (06/18/2024 12:30 PM EST): Blood pressure quite elevated in the office today. We have not seen the patient and do not have any updated blood work over the past 1 year in order to safely adjust medications. Asked patient to obtain CMP in the next few days and once resulted, consider increasing his Entresto or adding an additional antihypertensive, would not increase beta-emre at this time as his heart rate in the 50s. Encouraged patient to check blood pressure at home. We discussed sodium in the diet. Discussed how ongoing smoking is also contributing. PAF (paroxysmal atrial fibrillation) 04/30/2022 Assessment & Plan (12/14/2024 11:12 AM EDT): This patient has PAF and because of his obvious bleeding risk I am going to send him for a watchman consult Assessment & Plan (11/12/2024 1:33 PM EDT): Patient was recommended a watchman as an inpatient, for which he needs to see a physician, will have patient follow-up with his physician in 1 month to see if further recommendation for this is still warranted. He denies any symptoms of atrial fibrillation at this time. Continued on amiodarone and metoprolol and Xarelto at this time. Assessment & Plan (10/15/2024 2:15 PM EDT): Patient is in sinus rhythm today. Denies any clinical recurrence of any atrial fibrillation. He is adequately anticoagulated on Xarelto 20 mg daily without any bleeding. Continue metoprolol and amiodarone at this time. We will reduce his metoprolol from 50 mg to 25 mg as patient is mildly bradycardic, I encouraged patient and his partner that heart rates in the mid to high 50s are acceptable. The amiodarone although may be contributing slightly, is contributing to keeping him in sinus rhythm. We will try a lower dose of the beta-emre with ongoing vital monitoring. Assessment & Plan (08/31/2024 9:42 AM EST): EKG in the ED showing normal sinus rhythm Patient resume Xarelto on 08/26/2024 per recommendations from neurology from [facility] upon discharge with instructions to discontinue aspirin. -- Continue Toprol-XL, amiodarone rivaroxaban Assessment & Plan (08/30/2024 6:01 PM EST): Continue amiodarone, metoprolol 50 mg, Xarelto 20 mg. Patient resume Xarelto on 08/26/2024 per recommendations from neurology from [facility] upon discharge with instructions to discontinue aspirin. Assessment & Plan (07/17/2024 5:16 PM EST): Patient is anticoagulated and on amiodarone which we will continue. Currently sinus bradycardia Assessment & Plan (06/18/2024 12:26 PM EST): Patient is in sinus rhythm today. Denies any clinical recurrence of any atrial fibrillation. He is adequately anticoagulated on Xarelto 20 mg daily without any bleeding. Continue metoprolol and amiodarone at this time. Assessment & Plan (02/21/2023 1:18 AM EDT): Continue metoprolol succinate. No Xarelto in the setting of suspected GI bleeding. Assessment & Plan (05/28/2022 9:27 PM EST): With rapid ventricular response. His assistant hall director, Dr. Morales started him on amiodarone 05/26 in preparation for cardioversion. -Continue amiodarone 400 twice daily for a week then 200 twice daily -Titrate metoprolol as tolerated by his blood pressure. Currently on 50 twice daily -Continue chronic anticoagulation [ ] cardioversion planned for 05/29 Tobacco dependence 04/30/2022 Assessment & Plan (06/18/2024 12:34 PM EST): Smoking about 1 pack/day. Discussed effects on health. Patient is contemplative. Assessment & Plan (03/03/2023 10:30 PM EDT): Cutting back with goal to quit Now down to 1/2 ppd Offered assistance Assessment & Plan (02/21/2023 1:19 AM EDT): We will give a nicotine patch and as needed nicotine gum. Assessment & Plan (05/25/2022 10:47 PM EST): Has significantly cut down on his tobacco use. He does request a nicotine replacement patch. Assessment & Plan (05/04/2022 5:40 PM EDT): continue with his nicotine patch. Also ordered as needed nicotine gum. -Smoking cessation counseled. Uncomplicated alcohol abuse 04/30/2022 Overview (04/30/2022): In early remission. Quit drinking second week of April 2022. Assessment & Plan (07/17/2024 5:16 PM EST): Patient states he is currently sober, has not had any alcohol since February Assessment & Plan (06/18/2024 12:34 PM EST): Patient states has not had an alcoholic drink in 5 to 6 months. Congratulated. Recommend ongoing cessation. Assessment & Plan (05/25/2022 10:47 PM EST): He continues to abstain from alcohol. He was congratulated and continued abstinence was encouraged. Assessment & Plan (05/01/2022 4:14 PM EDT): No history of alcohol withdrawal symptoms. States that he was drinking 5-6 nips daily until about a week ago. He is likely out of the window of possible withdrawal symptoms, but on a CIWA scale ordered. Given his alcohol abuse thiamine, folic acid, pyridoxine and multivitamin ordered. He was advised that alcohol could be a potential cause for his cardiomyopathy and he should avoid alcohol in the future. He states that he already plans to do this. Chronic systolic heart failure 04/30/2022 Overview (04/30/2022): LVEF 25-30% on TTE February 2022. Indeterminate diastolic function due to atrial fibrillation. Assessment & Plan (11/04/2024 5:14 PM EDT): Patient has not had any improvement in his abdominal girth or weights. He is up > 40 pounds over the past few months. He was recently transitioned from furosemide to torsemide a few days ago by provider at his rehab. He notices no diuretic effect thus far. I am concerned today that with systolics in the 70s that there is no room for further diuresis. he is short of breath at baseline but describes dyspnea with even minimal activity at this point. Case discussed with SW. shortness of breath is likely multifactorial due to pulmonary comorbidities, however, shared decision to send patient to [facility] ED for evaluation/treatment to monitor closely due to above- stated signs/symptoms and hypotension. Assessment & Plan (10/15/2024 2:13 PM EDT): Patient is fluid overloaded on exam today. He has gained > 40 pounds since the last time he has been seen in the [facility] system a few months ago. He is short of breath which is likely multifactorial due to pulmonary comorbidities, but we are increasing Lasix today from 40 mg daily to 40 mg twice daily. BMP 1 week. Follow-up 2-3 weeks in the office. Daily weights, sodium restriction, heart failure teaching points reviewed. Sooner should symptoms change or progress. Assessment & Plan (06/18/2024 12:39 PM EST): Patient is generally euvolemic and asymptomatic at this time. I have ordered labs and echo. Continue current medical therapy at this time. Previous EF 30% improved to 35 to 40%, and due to this improvement, no ICD was recommended. Follow-up with assistant hall director in 3 months once resulted, sooner for any weight gain or symptom onset. Assessment & Plan (03/03/2023 10:33 PM EDT): Appears euvolemic Continue home BB, statin and amio Hold entresto and Lasix given JOSE Monitor volume status carefully Assessment & Plan (02/21/2023 1:18 AM EDT): Clinically euvolemic. We will give IV furosemide between units of PRBC. We will continue Entresto. Assessment & Plan (05/26/2022 7:03 PM EST): proBNP is elevated, but improved from his prior admission. No rales on exam and no lower extremity edema. I suspect that he is euvolemic. I will continue with his oral furosemide. Continue Entresto, continue metoprolol but decrease his dose to 25 twice daily due to soft blood pressures. Chronic respiratory failure with hypoxia 022 Assessment & Plan (12/14/2024 11:13 AM EDT): In addition he has severe pulmonary disease and is on home oxygen the CardioMEMS implant will help us discern whether or not his shortness of breath is from heart failure or pulmonary disease Assessment & Plan (02/21/2023 1:16 AM EDT): Continue supplemental oxygen. Assessment & Plan (05/04/2022 5:34 PM EDT): Respiratory failure likely secondary to due to heart failure and exacerbation COPD exacerbation. -Patient likely has underlying emphysema with possible hypoxia at baseline. 05/04-no evidence of volume overload to suggest heart failure continues to play a role in his hypoxia. - Patient continues to wheeze suggesting COPD is the cause of her ongoing hypoxia. - Continue O2 support - Treat COPD as noted below. -Wean oxygen as tolerated Pulmonary nodules 02/19/2022 Resolved Problems Problem Noted Date Diagnosed Date Resolved Date Chest pain, atypical 05/28/2022 023 Acute on chronic systolic heart failure 04/30/2022 05/25/2022 Assessment & Plan (05/04/2022 5:38 PM EDT): - Treated with IV Lasix and diuresed approximately 5 pounds. -No JVD leg edema or crackles on exam. No evidence of volume overload. -Echocardiogram -Seen by cardiology who agrees with continued treatment with oral furosemide 40 mg twice daily. Notes patient has known cardiomyopathy of unconfirmed etiology with EF of 45 to 30%. -Outpatient follow-up with Dr. Morales in the next few weeks. -Continue oral Lasix -Daily weights. Assessment & Plan (04/30/2022 5:50 PM EDT): . Patient has severe left ventricular dysfunction EF of only 25 to 30%. 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 He is also man and has risk factors for coronary artery disease including smoking hypertension hyperlipidemia. Point his acute heart failure needs to be treated with intravenous furosemide and KAY inhibitor's. And beta-blockers. Later on him he will need coronary angiography during this hospital admission. Cervicalgia 04/30/2022 02/21/2023 Atrial fibrillation with RVR 04/30/2022 05/25/2022 Assessment & Plan (05/04/2022 5:39 PM EDT): Improving, due to heart failure/COPD exacerbation. He was initially on a diltiazem drip but seen by cardiology and transition to digoxin given his low ejection fraction. Digoxin load started 05/01. -Case discussed with cardiology, dig level 1.7, cardiology change the dosing to every other day. He responded well to increase metoprolol dose -Continue Xarelto -Continue metoprolol 100 mg twice daily -Continue dig every other day -Continue to hold Norvasc and lisinopril, restart if clinically indicated Encounters Date Type Department Care Team Description 03/03/2025 Telephone [facility] [address], [address] [place] [address] Bailey Ocasio 01/22/2025 3:40 PM EDT Office Visit [facility] [address], [address] [place] [address] Rehan Landaverde MD Paroxysmal atrial fibrillation (Primary Dx) 12/19/2024 10:06 AM EDT - 12/19/2024 11:59 PM EDT Hospital Encounter [facility], Ct Scan - [facility] [address] [place] [address] Conner Sneed MD Discharge Disposition: Home or Self Care 12/14/2024 11:00 AM EDT Office Visit [facility] [address] [facility] 3rd Floor, [address] [place] [address] Zack Sanchez DO Systolic congestive heart failure, unspecified HF chronicity (Primary Dx); PAF (paroxysmal atrial fibrillation); Primary hypertension; Heart failure with reduced ejection fraction; Chronic respiratory failure with hypoxia 12/09/2024 9:53 AM EDT - 12/09/2024 11:59 PM EDT Hospital Encounter [facility] [address] [facility] [address] [place] [address] Conner Sneed MD Discharge Disposition: Home or Self Care 12/09/2024 9:00 AM EDT Office Visit [facility] [address] [place] [address] Conner Sneed MD Former smoker; Pulmonary nodules; Chronic obstructive pulmonary disease, unspecified COPD type 12/09/2024 Procedure Pass [facility], Ct Scan - [facility] [address] [place] [address] from Last 3 Months Immunizations Immunization Administration Dates Next Due COVID-19 (Pre-04/29) Angie Vaccine, rS-Ad26, PF 11/29/2020 COVID-19 (Pre-04/29) Moderna Vaccine, mRNA, PF 11/29/2020 INFLUENZA, SPLIT VIRUS, TRIVALENT PF 07/25/2024( Deferred: Patient Refused) Influenza Quadrivalent Prese rvative Free IM 05/05/2022 Influenza Quadrivalent w/ Pr eservative IM 04/18/2016 Tdap 09/28/2016 Family History * Patient is adopted Medical History Relation Comments No Known Problems Daughter Relation Status Comments Daughter Alive Father Mother Social History Tobacco Use Types Packs/Day Years Used Date Smoking Tobacco: Former Cigarettes 0.5 48.4 0 03/28/1976 - 08/09/2024 Smokeless Tobacco: Never Tobacco Cessation:Counseling Given: Not Answered Alcohol Use Standard Drinks/Week Comments Not Currently [...] your housing situation today? I have mark sing 11/04/2024 How many times have you move [...] Orientation Straight 02/20/2022 11 :20 AM EDT Last Filed Vital Signs Vital Sign Reading Time Taken Comments Blood Pressure 144/86 01/22/2025 3:38 PM EDT Pulse 58 01/22/2025 3:38 PM EDT Temperature 36.3 C (97.4 F) 12/09/2024 9:10 AM EDT Respiratory Rate 18 11/07/2024 3:17 PM EDT Oxygen Saturation 98% 01/22/2025 3:38 PM EDT Inhaled Oxygen Concentration 35% 07/22/2024 1 1:00 AM EST Weight 97.3 kg (214 lb 9.6 oz) 01/22/2025 3:38 P M EDT Height 170.2 cm (5' 7.01 ) 01/22/2025 3:38 PM ED T Body Mass Index 33.6 01/22/2025 3:38 PM EDT Plan of Treatment Upcoming Encounters Date Type Department Care Team (Late st Contact Info) Description 03/16/2025 9:00 AM EDT Office Visit [facility] [address] [facility] [place] [address] Conner Sneed MD [address] [place] [phone] [email or web address] 03/29/2025 10:15 AM EDT Office Visit [facility] [address] [place] [address] 3rd Floor, [address] [place] [address] Zack Sanchez DO [address] [facility] [address] [place] [phone] 05/14/2025 1:00 PM EST Office Visit [facility] [address] [facility] [address], [address] [place] [address] Rehan Landaverde MD [address] [place] [address] [email or web address] Scheduled Procedures Name Priority Associated Diagnoses Date/Ti me 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 Systolic congestive heart failure, unspecified HF chronicity Health Maintenance Due Date Last Done Comments HEPATITIS C SCREENING 1981 HIV ONE-TIME SCREENING (18-65 YEARS) 1981 PNEUMOCOCCAL VACCINES (50+ years) (1 of 2 - PCV) 1982 COLOGUARD 2008 FIT TEST 2008 FOBT 2008 SIGMOIDOSCOPY 2008 VIRTUAL COLONOSCOPY 2008 ZOSTER VACCINES (1 of 2) 2013 RSV VACCINE (1 - Risk 60-74 years 1-dose series) 2023 DEPRESSION SCREENING 03/28/2023 03/28/2022 INFLUENZA VACCINE (#1) 2025 , 05/05/2022, 04/18/2016 COVID-19 VACCINE (3 - 2024- season) 2025 11/29/2020, 11/29/2020 BLOOD PRESSURE 07/25/2025 01/22/2025 SMOKING Hx and SMOKELESS TOBACCO SCREENING 08/30/2025 08/30/2024 ALT LEVEL (ALANINE AMINOTRANSFERASE) 11/05/2025 11/05/2024, 11/04/2024, 08/31/2024, Additional history exists TSH LEVEL 11/07/2025 11/07/2024, 0812/2022, 02/20/2023, Additional history exists CREATININE LEVEL 12/09/2025 12/09/2024, 09/2024, 11/06/2024, Additional history exists LUNG CANCER SCREENING (LDCT Only) 12/19/2025 12/19/2024, 08/30/2024, 07/18/2024, Additional history exists Adult Td,Tdap Booster 09/28/2026 09/28/2016 SCREENING FOR DIABETES 12/10/2027 12/09/2024, 2024 COLONOSCOPY 02/22/2033 02/22/2023 COLORECTAL CANCER SCREENING 02/22/2033 HEPATITIS A VACCINES Aged Out No long er eligible based on patient's age to complete this topic HIB VACCINES Aged Out No longer eligi ble based on patient's age to complete this topic MENINGOCOCCAL VACCINES (ACWY) Aged Out No longer eligible based on patient's age to complete this topic MENINGOCOCCAL VACCINES (B) Aged Out N o longer eligible based on patient's age to complete this topic Medical Devices Implanted Type Area Generation Manager Device Identifier Shelf Expiration Date Model / Serial / Lot Plate And Screws In Pelvis Procedures Procedure Name Priority Date/Time Associated Diagnosis Comments CT CHEST LUNG CANCER SCREENING ANNUAL Routine 12/19/2024 10:16 AM EDT Former smoker BASIC METABOLIC PANEL Routine 12/09/2024 9:54 AM EDT Congestive heart failure, unspecified HF chronicity, unspecified heart failure type [id number] Routine 12/09/2024 9 :54 AM EDT Former smoker TSH Routine 11/07/2024 5:31 AM EDT COMPREHENSIVE METABOLIC PANEL Routine 11/05/2024 5:57 AM EDT ENDOSCOPY, COLON 02/22/2023 1:37 PM EDT from Last 3 Months or Most Recently Relevant to Health Maintenance Results * CT CHEST LUNG CANCER SCREENING ANNUAL (12/19/2024 10:16 AM EDT) Anatomical Region Laterality Modality Chest Computed Tomogra phy 12/25/2024 3:26 PM EDT Impressions 12/25/2024 3:32 PM EDT Small areas of consolidation in the right upper lobe and right lower lobe likely representing small areas of aspiration or pneumonia. Unchanged additional scattered pulmonary nodules measuring up to 5 mm. Lung-RADS Category: 0. Findings suggestive of an inflammatory or infectious process which warrants short-term follow-up to assess for resolution and reassign new Lung-RADS category. --> RECOMMENDATIONS: Follow-up CT in 3 months. For new large nodules or parenchymal abnormalities that might suggest inflammatory changes, a short term follow up Chest CT in 1-3 months is advised. To order, please type CT CHEST SCREENING (CT.[email or web address]) and select appropriate FOLLOW UP Imaging Interval. Explanation of the Lung-RADS categories can be found at: [email or web address] Narrative 12/25/2024 3:[address] CHEST LUNG CANCER SCREENING ANNUAL Referring clinician's provided indication for this examination in [facility]: Lung Cancer Screening - FORMER smoker, quit in past 15 yrs (20+ pk-yrs, age 50-80) - ICD-10 Z87.891 TECHNIQUE: Low dose multidetector CT of the chest was performed without intravenous contrast using tailored dose modulation techniques. COMPARISON: CT CHEST PULMONARY ANGIOGRAM (ACUTE) 2024- FINDINGS: Devices/Tubes/Lines: None. Lungs: The central airways are patent. There is a mild amount of centrilobular emphysema in the upper lungs. There are unchanged scattered pulmonary nodules measuring up to 5 mm, for example in the subpleural right middle lobe, 2:69. Interval development of small focal area of consolidation in the lateral aspect of the posterior segment of the right upper lobe, 2:55, and medial right lower lobe, 2:50. Pleura: Normal. No pleural effusion or pneumothorax. Mediastinum: Normal. No thyroid nodules. Heart and pericardium are normal. Moderate amount of coronary calcifications. Lymph Nodes: Normal. No enlarged supraclavicular, axillary, mediastinal, or hilar lymph nodes. Upper Abdomen: Normal. Absence of intravenous contrast and low dose technique limits sensitivity for detecting small lesions, solid organ and vascular findings. No abnormality detected in the visualized upper abdomen. Chest Wall: No chest wall mass. Bones: No suspicious lytic or blastic lesions. Procedure Note Lee Jo MD - 12/25/2024 CT CHEST LUNG CANCER SCREENING ANNUAL Referring clinician's provided indication for this examination in [facility]:Lung Cancer Screening - FORMER smoker, quit in past 15 yrs (20+ pk-yrs,age 50-80) - ICD-10 Z87.891 TECHNIQUE: Low dose multidetector CT of the chest was performed withoutintravenous contrast using tailored dose modulation techniques. COMPARISON: CT CHEST PULMONARY ANGIOGRAM (ACUTE) 2024- FINDINGS: Devices/Tubes/Lines: None. Lungs: The central airways are patent. There is a mild amount ofcentrilobular emphysema in the upper lungs. There are unchanged scatteredpulmonary nodules measuring up to 5 mm, for example in the subpleuralright middle lobe, 2:69. Interval development of small focal area of consolidation in the lateralaspect of the posterior segment of the right upper lobe, 2:55, and medialright lower lobe, 2:50. Pleura: Normal. No pleural effusion or pneumothorax. Mediastinum: Normal. No thyroid nodules. Heart and pericardium are normal.Moderate amount of coronary calcifications. Lymph Nodes: Normal. No enlarged supraclavicular, axillary, mediastinal,or hilar lymph nodes. Upper Abdomen: Normal. Absence of intravenous contrast and low dosetechnique limits sensitivity for detecting small lesions, solid organ andvascular findings. No abnormality detected in the visualized upperabdomen. Chest Wall: No chest wall mass. Bones: No suspicious lytic or blastic lesions. IMPRESSION: Small areas of consolidation in the right upper lobe and right lower lobelikely representing small areas of aspiration or pneumonia. Unchanged additional scattered pulmonary nodules measuring up to 5 mm. Lung-RADS Category: 0. Findings suggestive of an inflammatory orinfectious process which warrants short-term follow-up to assess forresolution and reassign new Lung-RADS category. --> RECOMMENDATIONS: Follow-up CT in 3 months. For new large nodules or parenchymal abnormalities that might suggestinflammatory changes, a short term follow up Chest CT in 1-3 months isadvised. To order, please type CT CHEST SCREENING (CT.TH.[email or web address]) and selectappropriate FOLLOW UP Imaging Interval. Explanation of the Lung-RADS categories can be found at:[email or web address] Conner Sneed MD IM CT CHEST Final Re sult * [id number] (12/09/2024 9:54 AM EDT) [id number] PSIN 133 100 - 190 mg/dL [facility] Blood 12/09/2024 9:54 AM EDT 12/09/2024 9:59 AM EDT us Conner Sneed MD LAB BLOOD ORDERABLES Fin al Result Performing Organization Address City/[facility]/ZIP Co de Phone Number [facility] [address] [address] [place] [address] * (ABNORMAL) Basic metabolic panel (12/09/2024 9:54 AM EDT) SODIUM 140 133 - 146 mmol/L [facility] CHLORIDE 100 96 - 108 mmol/L [facility] POTASSIUM 4.7 3.3 - 5.1 mmol/L [facility] CO2 33 21 - 35 mmol/L [facility] BUN 25(H) 6 - 19 mg/dL [facility] CREATININE 1.20 0.5 - 1.5 mg/dL [facility] GLUCOSE 105(H) 70 - 99 mg/dL [facility] CALCIUM 9.5 8.4 - 10.3 mg/dL [facility] EGFR 69 >59 mL/min/1.7 3m2 [facility] Comment:Estimated glomerular filtration rate calculated using the CKD-EPI refit equation. ANION GAP 12 10 - 20 mmol/L [facility] Blood 12/09/2024 9:54 AM EDT 12/09/2024 9:58 AM EDT us Helen Allen PA-C LAB BLOOD ORDERABLES Final R esult Performing Organization Address City/[facility]/ZIP Co de Phone Number [facility] [address] [place] [address] * TSH (11/07/2024 5:31 AM EDT) TSH 3.65 0.27 - 4.20 uIU/mL [facility] Blood 11/07/2024 5:31 AM EDT 11/07/2024 6:00 AM EDT us Giuliano Adan MD LAB BLOOD ORDERABLES Final Result [address] [address] * (ABNORMAL) Comprehensive metabolic panel (11/05/2024 5:57 AM EDT) SODIUM 139 133 - 146 mmol/L [facility] POTASSIUM 3.6 3.3 - 5.1 mmol/L [facility] CHLORIDE 97 96 - 108 mmol/L [facility] CO2 32 21 - 35 mmol/L [facility] BUN 39(H) 6 - 19 mg/dL [facility] CREATININE 1.90(H) 0.5 - 1.5 mg/dL [facility] GLUCOSE 112(H) 70 - 99 mg/dL [facility] ALBUMIN 3.2(L) 3.9 - 4.8 g/dL [facility] TOTAL PROTEIN 6.2(L) 6.5 - 8.0 g/dL [facility] CALCIUM 8.5 8.4 - 10.3 mg/dL [facility] ALKALINE PHOSPHATASE 91 39 - 117 U/L [facility] TOTAL BILIRUBIN <0.2 0.0 - 1.2 mg/dL [facility] AST 16 0 - 37 U/L [facility] ALT 14 0 - 40 U/L [facility] GLOBULIN 3.0 1 - 4.8 g/dL [facility] EGFR 40(L) >59 mL/min/1.7 3m2 [facility] Comment:Estimated glomerular filtration rate calculated using the CKD-EPI refit equation. ANION GAP 14 10 - 20 mmol/L [facility] Blood 11/05/2024 5:57 AM EDT 11/05/2024 6:34 AM EDT us Anastacia Dietrich MD LAB BLOOD ORDERABLES Final Result [address] [address] * ENDOSCOPY, COLON (02/22/2023 1:37 PM EDT) Narrative Transcriptions Ioana Armijo MD - 02/22/2023 1:37 PM EDT [facility] Patient Name: Yousif Boonever Attending MD:: IOANA ARMIJO MD, Procedure Date: 02/22/2023 1:37 PM Date of : 1965 Age: 57 Admit Type: Inpatient Gender: Male Room: [place] [address] Referring MD: SHANIKA MONTEMAYOR NP Exam Type: Colonoscopy Indications: Last colonoscopy: November 2016, Iron deficiencyanemia Medications: Propofol per Anesthesia Procedure: Informed consent was obtained from the patientafter discussion of the indications, limitations, alternatives, benefits, and risks of the procedure. Risks specifically discussed include but are not limited to medication reactions, missed lesions, bleeding, perforation, or the need for emergent surgery. Throughout the procedure, the patient's blood pressure, pulse, end-tidal CO2, and oxygensaturations were monitored continuously. The Colonoscope was introduced through the anus and advanced to the terminal ileum, with identificationof the appendiceal orifice and IC valve. The terminal ileum, the appendiceal orifice and the rectum were photographed. The colonoscopy was performed without difficulty. The patient tolerated the procedurewell. The quality of the bowel preparation was good. The bowel preparation used was GoLYTELY via split dose instruction. Complications: No immediate complications. Estimated blood loss:None. Findings: The perianal and digital rectal examinations were normal. Pertinent negatives include normal prostate (size, shape, and consistency). The entire examined colon appeared normal on direct and retroflexion views. The terminal ileum appeared normal. Impression: - The entire examined colon is normal on direct and retroflexion views. - The examined portion of the ileum was normal. - No specimens collected. Recommendation: - Repeat colonoscopy in 10 years for screening purposes. - To visualize the small bowel, perform videocapsule endoscopy at appointment to be scheduled. IOANA ARMIJO MD 02/22/2023 2:25:33 PM This report has been signed electronically. Number of Addenda: 0 Note Initiated On: 02/22/2023 1:37 PM Procedure Code(s): --- Professional --- 92010, Colonoscopy, flexible; diagnostic, including collection of specimen(s) by brushing or washing, when performed (separateprocedure) --- Technical --- 10348, Colonoscopy, flexible; diagnostic, including collection of specimen(s) by brushing or washing, when performed (separateprocedure) Diagnosis Code(s): --- Professional --- D50.9, Iron deficiency anemia, unspecified --- Technical --- D50.9, Iron deficiency anemia, unspecified CPT copyright 2021 [employer]. All rights reserved. The codes documented in this report are preliminary and upon inpatient coder reviewmay be revised to meet current compliance requirements. Procedure Date: 02/22/2023 1:37:[address] [place] [address] Shanika Montemayor NP GI PROCEDURE ORDERABLES Final R esult from Last 3 Months or Most Recently Relevant to Health Maintenance Insurance [facility] MEDIC[facility] PART A & B [facility] [id number] MEDICARE PART A & B [place] B [facility] [place] [id number] MEDICARE PART A & B [place] MEDIC[place] PART [place] & B [facility] MEDICARE PART A & B MEDICARE PART A & B [facility] TRAVELERS INSURANCE Advance Directives For more information, please contact: [phone] (9AM - 5PM [facility], Saturday-Saturday) Documents on File Type Date Recorded Patient Allergy And Immunology Specialist Expl anation Healthcare Proxy 07/22/2024 3:40 PM * Full Code (Latest Code Status on File) Date Activated Date Inactivated Comments 11/05/2024 1:32 AM Question Answer Comments Code Status Confirmed With: Patient * Full Code Date Activated Date Inactivated Comments 08/30/2024 6:38 PM 11/05/2024 1:32 AM Question Answer Comments Code Status Confirmed With: Patient Code Status Communicated To: Inpatient Attending * Full Code Date Activated Date Inactivated Comments 07/18/2024 7:57 PM 08/30/2024 6:38 PM Question Answer Comments Code Status Confirmed With: Patient * Full Code Date Activated Date Inactivated Comments 07/17/2024 6:39 PM 07/18/2024 7:57 PM Question Answer Comments Code Status Confirmed With: Patient * Full Code Date Activated Date Inactivated Comments 03/03/2023 11:05 PM 07/17/2024 6:39 PM Question Answer Comments Code Status Confirmed With: Patient Healthcare Agents on File Name Relationship Healthcare Agent Relationshi p Communication Nikole Colon Life Partner .Primary Health Care Agent (Proxy form on file) Care Teams Digital Account Executive Relationship Specialty Start Date End Date Cj Meyer DO [address] [place] [address] PCP - General Internal Medicine 08/08/24 Dennis Temple MBBS [email or web address] Primary Oncologist Hematology and Oncology 04/02/23 Gabriela Barnhart CNP [address] [place] [address] [email or web address] Nurse Practitioner Medical Oncology 01/16/24 Additional Source Comments The information contained in this document represents components of the legal health record. It is not the complete legal health record.[facility]
--- OUTSIDE RECORDS SUMMARY | 2025-03-09 06:26 | XMS_ITS | Encounter Summary ---
Author Organization [facility] Address [address] [place] [address] Phone Care Team Providers Care Vendor Management Consultant Name Role Phone Temple, Ahmastu Mccann MBBS Unavailable Pack, Gabriela CONDUCTOR ORCHESTRA Unavailable Cj Meyer DO Primary Care Provider [phone] Encounter Details Date Type Department Care Team (Late st Contact Info) Description 12/09/2024 Procedure Pass [facility], Ct Scan - [address] [address] Social History Tobacco Use Types Packs/Day Years [...] Pulmonary, Allergy and Critical Care Medicine 10 [facility] [place] [address] Conner Sneed MD [address] [address] [email or web address] 03/29/2025 10:15 AM EDT Office Visit [facility] [address] Floor, [address] [place] [address] Zack Sanchez DO [address] [facility] [address] [place] [address] 05/14/2025 1:00 PM EST Office Visit [facility] [address] Floor, [address] [place] [address] eRhan Landaverde MD [address] [place] [address] [email or web address] Scheduled Procedures Name Priority Associated Diagnoses Date/Ti me 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 Systolic congestive heart failure, unspecified HF chronicity documented as of this encounter Visit Diagnoses Not on filedocumented in this encounter Additional Health Concerns Assessment Noted Time PHQ-2 Depression Total Score: 2 03/28/20 22 11:32 AM EDT documented as of this encounter Care Teams Vendor Management Consultant Relationship Specialty Start Date End Date Cj Meyer DO [address] [place] [address] PCP - General Internal Medicine 08/08/24 Dennis Temple MBBS [email or web address] Primary Oncologist Hematology and Oncology 04/02/23 Gabriela Barnhart CNP [address] [place] [address] [email or web address] Nurse Practitioner Medical Oncology 01/16/24 documented as of this encounter Additional Source Comments The information contained in this document represents components of the legal health record. It is not the complete legal health record.[facility]
--- OUTSIDE RECORDS SUMMARY | 2025-03-09 06:26 | XMS_ITS | Encounter Summary ---
Author Organization [facility] Address [address] [place] [address] Phone Care Team Providers Care Bookkeeping Service Sales Agent Name Role Phone DereckMarlene Mook FOREST FIRE CONTROL OFFICER Primary Care Provider Dennis Temple MBBS Unavailable [phone] Gabriela Barnhart HEAD OF QUALITY Unavailable Cj Meyer DO Primary Care Provider [phone] Encounter Details Date Type Department Care Team (Late st Contact Info) Description 07/17/2024 Procedure Pass [facility] [address] [place] [address] Social History Tobacco Use Types Packs/Day Years [...] have you moved in the past 12 sat ths? Unable to assess 07/18/2024 Paying for [...] Date of Assessment Author No Risk Indicated 07/17/2024 1:48 PM Sofy Harry RN * [place] Suicide Severity Rating Scale (Screener/Recent Self-Report) Question Answer Date of Assessment Author 1. Wish to be (Past 1 Month) No 025 1:48 PM Sofy Harry RN 2. Non-Specific Active Suici meghan Thoughts (Past 1 Month) No 07/17/2024 1:48 PM Sofy Harry RN 6. Suicidal Behavior (Lifetime) No 1:48 PM Sofy Harry RN documented as of this encounter Plan of Treatment Upcoming Encounters Date Type Department Care Team (Late st Contact Info) Description 03/16/2025 9:00 AM EDT Office Visit [facility] Pulmonary, Allergy and Critical Care Medicine 10 [facility] [place] [address] Conner Sneed MD [address] [place] [address] [email or web address] 03/29/2025 10:15 AM EDT Office Visit [facility] [address], [address] [place] [address] Zack Sanchez DO [address] [place] [address] [place] [address] 05/14/2025 1:00 PM EST Office Visit [address] [facility], [address] [place] [address] Rehan Landaverde MD [address] [place] [address] Scheduled Procedures Name Priority Associated Diagnoses Date/Ti me 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 IN COMMERCIAL ARTIST Systolic congestive heart failure, unspecified HF chronicity [...] documented as of this encounter Care Teams Bookkeeping Service Sales Agent Relationship Specialty Start Date End Date Marlene Harden NP [address] [place] [address] PCP - General Family Medicine 01/10/22 08/07/24 Cj Meyer DO 70 [place] [address] PCP - General Internal Medicine 08/08/24 Dennis Temple MBBS [address] [place] [address] [email or web address] Primary Oncologist Hematology and Oncology 04/02/23 Gabriela Barnhart CNP 30 [place] [address] [email or web address] Nurse Practitioner Medical Oncology 01/16/24 documented as of this encounter Additional Source Comments The information contained in this document represents components of the legal health record. It is not the complete legal health record.[facility]
[2025-03-09 06:27] LABS: Hematocrit 31.1 % (42.0-52.0); Hemoglobin 10.2 g/dl (14.0-18.0); Imm Gran Abs Auto 0.45 X10*3/uL (0.00-0.03); Imm Gran Pct Auto 4.4 % (0.0-0.4); Lymphocytes Absolute Auto 2.3 X10*3/uL (1.2-4.9); Mean Corpuscular HGB Conc 32.8 g/dl (31.0-36.0); Mean Corpuscular Hemoglobin 26.2 pg (27.0-33.0); Mean Corpuscular Volume 79.7 fL (80.0-98.0); NRBC Abs Auto 0.000 X10*3/uL (0.0-0.012); NRBC Pct Auto 0.0 /100WBC (0.0-0.2); Platelet Count 294 X10*3/uL (160-400); Red Blood Count 3.90 X10*6/uL (4.60-5.80); White Blood Count 10.3 X10*3/uL (4.8-10.8)
[2025-03-09 06:40] LABS: Anion Gap 14 (12-20); Blood Urea Nitrogen 22 mg/dL (9-16); Calcium 9.0 mg/dL (8.4-10.2); Carbon Dioxide 30 mmol/L (22-29); Chloride 101 mmol/L (96-108); Estimated Glomerular Filt Rate 56; Potassium 4.6 mmol/L (3.3-5.1); Sodium 140 mmol/L (135-145)
== END 2025-03-09 06:21 | disposition home or self-care (01) ==
LOC: HO.MMNH1L 06:20
PROVIDERS: Visit Provider Family Medicine
DX: J96.21 Acute and chronic respiratory failure with hypoxia (principal); J44.1 Chronic obstructive pulmonary disease with (acute) exacerbation; E46 Unspecified protein-calorie malnutrition
CPT/HCPCS: 36415; 80048; 85025

== ENCOUNTER 2025-03-15 06:07 | Outpatient (REF) | payer MEDICARE, SELFPAY ==
[2025-03-15 05:55] LABS: MANUAL DIFF FLAG NO
--- OUTSIDE RECORDS SUMMARY | 2025-03-15 06:12 | XMS_ITS | Encounter Summary ---
Author Organization [facility] Address [address] [facility] [address] [place] [address] Phone Care Team Providers Care Cloth Baler Name Role Phone Marlene Harden COMPONENT ASSEMBLER SUPERVISOR Primary Care Provider [phone] Yue Rodrigez RN Unavailable Jennifer Dash MECHANICAL PLANNER Unavailable felisa Yvonne Montana Unavailable Dennis Temple MBBS Unavailable [phone] Gabriela Barnhart DRIVER LICENSE AGENT Unavailable Cj Meyer DO Primary Care Provider Encounter Details Date Type Department Care Team (Late st Contact Info) Description 02/20/2022 Procedure Pass [facility] [address] [place] [address] Social History Tobacco Use Types Packs/Day [...] 11:20 AM EDT Elizabeth Le RN * [place] Suicide Severity Rating Scale (Screener/Recent Self-Report) Question [...] CD Pulmonary, Allergy and Critical Care Medicine [address] [place] [address] Conner Sneed MD [address] [place] [address] [email or web address] 03/29/2025 10:15 AM EDT Office Visit [facility] [address] [place] [address], [address] [place] [address] Zack Sanchez DO [address] [place] [address] 05/14/2025 1:00 PM EST Office Visit [facility] [address] [place] [address], [address] [address] Rehan Landaverde MD [address] [place] [address] Scheduled Procedures Name Priority Associated Diagnoses Date/Ti 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 IN DENTIST/OWNER Systolic congestive heart failure, unspecified HF chronicity [...] documented as of this encounter Care Teams Cloth Baler Relationship Specialty Start Date End Date Marlene Harden NP 70 [place] [address] PCP - General Family Medicine 01/10/22 08/07/24 Cj Meyer DO 70 [place] [address] PCP - General Internal Medicine 08/08/24 Yue Rodrigez, VENKATA [address] [place] [address] [email or web address] [facility] Conditioner Tumbler 02/21/22 06/09/23 Jennifer Dash LCSW 10 [place] [address] [email or web address] [facility] Social Work 02/01/23 02/11/23 Yvonne Montana 10 [place] [address] [email or web address] [facility] Community Health Worker 02/25/23 06/09/23 Dennis Temple MBBS [address] [place] [address] [email or web address] Primary Oncologist Hematology and Oncology 04/02/23 Gabriela Barnhart CNP [address] [place] [address] [email or web address] Nurse Practitioner Medical Oncology 01/16/24 documented as of this encounter Additional Source Comments The information contained in this document represents components of the legal health record. It is not the complete legal health record.[facility]
--- OUTSIDE RECORDS SUMMARY | 2025-03-15 06:12 | XMS_ITS | Encounter Summary ---
Author Organization [facility] Address [address] [facility] [address] [place] [address] Phone Care Team Providers Care Hydraulic Press Servicer Name Role Phone Marlene Harden NP Primary Care Provider [phone] Yue Rodrigez RN Unavailable Jennifer Dash COMPENSATION AND BENEFITS ANALYST Unavailable felisa Yvonne Montana Unavailable [email or web address] Dennis Temple MBBS Unavailable [phone] Gabriela Barnhart WEB PROJECT MANAGER Unavailable Cj Meyer DO Primary Care Provider [phone] Encounter Details Date Type Department Care Team (Late st Contact Info) Description 03/15/2022 Procedure Pass [facility], Ct Scan - [address] [address] Social History Tobacco Use Types Packs/Day Years Used Date Smoking Tobacco: Every Day Cigarettes 1.5 49 Started: 03/28/1976 Smokeless Tobacco: Never Comments:Started using [...] Pulmonary, Allergy and Critical Care Medicine 10 [facility] [place] [address] Conner Sneed MD 10 [facility] 2nd [place] [address] [email or web address] 03/29/2025 10:15 AM EDT Office Visit [facility] [address], [address] [place] [address] Zack Sanchez DO 22 [facility] [address] [place] [address] 05/14/2025 1:00 PM EST Office Visit [address], [address] [place] [address] Rehan Landaverde MD [address] [place] [address] Scheduled Procedures Name Priority Associated Diagnoses Date/Ti me 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 IN MULTILITH OPERATOR Systolic congestive heart failure, unspecified HF [...] documented as of this encounter Care Teams Hydraulic Press Servicer Relationship Specialty Start Date End Date Marlene Harden NP 70 [place] [address] PCP - General Family Medicine 01/10/22 08/07/24 Cj Meyer DO 70 [place] [address] PCP - General Internal Medicine 08/08/24 Yue Rodrigez RN 70 [place] [address] [facility] Drywall Hanger Framer 02/21/22 06/09/23 Jennifer Dash LCSW [address] [place] [address] [email or web address] [facility] Social Work 02/01/23 02/11/23 Yvonne Montana 10 [place] [address] [facility] Community Health Worker 02/25/23 06/09/23 Dennis Temple MBBS [address] [place] [address] [email or web address] Primary Oncologist Hematology and Oncology 04/02/23 Gabriela Barnhart CNP [address] [place] [address] Nurse Practitioner Medical Oncology 01/16/24 documented as of this encounter Additional Source Comments The information contained in this document represents components of the legal health record. It is not the complete legal health record.[facility]
--- OUTSIDE RECORDS SUMMARY | 2025-03-15 06:12 | XMS_ITS | Encounter Summary ---
Author Organization [facility] Address [address] [facility] [address] [place] [address] Phone Care Team Providers Care Corner Former Name Role Phone Olegario Guy MD Primary Care Provider [phone] Marlene Harden NP Primary Care Provider [phone] Yue Rodrigez RN Unavailable Jennifer Dash PROPERTY MANAGEMENT INTERN Unavailable [email or web address] Yvonne Montana Unavailable Dennis Temple MBBS Unavailable [phone] Gabriela Barnhart ASSESSMENT NURSE Unavailable Cj Meyer DO Primary Care Provider Encounter Details Date Type Department Care Team (Late st Contact Info) Description 03/28/2020 Procedure Pass [facility], [address] [address] Social History Tobacco Use Types Packs/Day Years [...] Pulmonary, Allergy and Critical Care Medicine 10 [facility] [place] [address] Conner Sneed MD [address] [address] [email or web address] 03/29/2025 10:15 AM EDT Office Visit [facility] [address] [facility], [address] [place] [address] Zack Sanchez DO 22 [facility] [address] [place] [address] 05/14/2025 1:00 PM EST Office Visit [facility] [address] [facility], [address] [place] [address] Rehan Landaverde MD [address] [place] [address] [email or web address] Scheduled Procedures Name Priority Associated Diagnoses Date/Ti me 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 IN DIRECTOR OF ACADEMIC SUPPORT Systolic congestive heart failure, unspecified HF chronicity [...] documented as of this encounter Care Teams Corner Former Relationship Specialty Start Date End Date Olegario Guy MD [address] [facility] [address] [place] [address] [email or web address] PCP - General Family Medicine 03/28/20 01/09/22 Marlene Harden NP 70 [place] [address] PCP - General Family Medicine 01/10/22 08/07/24 Cj Meyer DO [address] [place] [address] PCP - General Internal Medicine 08/08/24 Yue Rodrigez, VENKATA 70 [place] [address] [facility] Fitness Center Attendant 02/21/22 06/09/23 Jennifer Dash LCSW [address] [place] [address] [facility] Social Work 02/01/23 02/11/23 Yvonne Montana 10 [place] [address] [facility] Community Health Worker 02/25/23 06/09/23 Dennis Temple MBBS [address] [place] [address] [email or web address] Primary Oncologist Hematology and Oncology 04/02/23 Gabriela Barnhart CNP [address] [place] [address] [email or web address] Nurse Practitioner Medical Oncology 01/16/24 documented as of this encounter Additional Source Comments The information contained in this document represents components of the legal health record. It is not the complete legal health record.[facility]
--- OUTSIDE RECORDS SUMMARY | 2025-03-15 06:12 | XMS_ITS | Encounter Summary ---
Author Organization [facility] Address [address] [facility] [address] [place] [address] Phone Care Team Providers Care Diversity Manager Name Role Phone Marlene Harden NP Primary Care Provider Yue Rodrigez RN Unavailable Jennifer Dash HYDRO PNEUMATIC TESTER Unavailable [email or web address] Yvonne Montana Unavailable Dennis Temple MBBS Unavailable Gabriela Barnhart ADMINISTRATIVE JOB TITLES Unavailable Cj Meyer DO Primary Care Provider [phone] Reason for Referral * - Closed Specialty Diagnoses / Procedures Referred By Contflorentin t Referred To Contact Diagnoses Permanent atrial fibrillation Procedures MCT (Mobile Cardiac Telemetry) Zack Sanchez DO Phone: tel: fax: mailto: Referral ID Status Reason Start Date Expiration Date Visits Re quested Visits Authorized [id number] Closed 04/11/2022 04/11/2023 1 1 Encounter Details Date Type Department Care Team (Latest Contact Info) Description 04/11/2022 Ancillary Orders [facility] [address] [facility] 3rd Floor, [address] [place] [address] Zack Sanchez DO [address] [address] [email or web address] Permanent atrial fibrillation Social History Tobacco Use Types Packs/Day Years Used Date Smoking Tobacco: Every Day Cigarettes 1.5 49 Started: 03/28/1976 Smokeless Tobacco: Never Comments:using nicotine [...] Pulmonary, Allergy and Critical Care Medicine 10 [place] [address] Conner Sneed MD [address] [place] [address] [email or web address] 03/29/2025 10:15 AM EDT Office Visit [facility] [address] [place] [address], [address] [place] [address] Zack Sanchez DO [address] [address] 05/14/2025 1:00 PM EST Office Visit [facility] [address] [facility] 3rd [facility], [address] [place] [address] Rehan Landaverde MD [address] [place] [address] Scheduled Orders Name Type Priority Associated Diagnoses Orde r Schedule MCT (Mobile Cardiac Telemetry) Cardiac Monitors Routine Permanent atrial fibrillation Expected: 02/27/2022, Expires: 05/23/2022 Scheduled Procedures Name Priority Associated Diagnoses Date/Ti me 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 IN RESEARCH GEOLOGIST Systolic congestive heart failure, unspecified HF chronicity [...] documented as of this encounter Care Teams Diversity Manager Relationship Specialty Start Date End Date Marlene Harden NP 70 [place] [address] PCP - General Family Medicine 01/10/22 08/07/24 Cj Meyer DO 70 [place] [address] PCP - General Internal Medicine 08/08/24 Yue Rodrigez, VENKATA 70 [place] [address] [facility] Mechanic 02/21/22 06/09/23 Jennifer Dash LCSW 10 [place] [address] [facility] Social Work 02/01/23 02/11/23 Yvonne Montana 10 [place] [address] [email or web address] Community Health Worker 02/25/23 06/09/23 Dennis Temple MBBS 10 [place] [address] [email or web address] Primary Oncologist Hematology and Oncology 04/02/23 Gabriela Barnhart CNP [address] [place] [address] [email or web address] Nurse Practitioner Medical Oncology 01/16/24 documented as of this encounter Additional Source Comments The information contained in this document represents components of the legal health record. It is not the complete legal health record.[facility]
--- OUTSIDE RECORDS SUMMARY | 2025-03-15 06:12 | XMS_ITS | Encounter Summary ---
Author Organization [facility] Address [address] [facility] [address] [place] [address] Phone Care Team Providers Care Insurance Claims Specialist Name Role Phone Olegario Guy MD Primary Care Provider [phone] Marlene Harden NP Primary Care Provider [phone] Yue Rodrigez RN Unavailable Jennifer Dash STORE LOSS PREVENTION MANAGER Unavailable ndelabar Yvonne Montana Unavailable Dennis Temple MBBS Unavailable [phone] Gabriela Barnhart SPECIAL EDUCATION AIDE Unavailable Cj Meyer DO Primary Care Provider [phone] Reason for Referral * MRI/CAT Scan - Closed Specialty Diagnoses / Procedures Referred By Contac t Referred To Contact Radiology Diagnoses Cervical radiculopathy Procedures MRI Cervical Spine Jie Wu NP Phone: tel: fax: mailto:[email or web address] Referral ID Status Reason Start Date Expiration Date Visits Re quested Visits Authorized [id number] Closed 03/21/2020 04/04/2020 1 1 Encounter Details Date Type Department Care Team (Latest Contact Info) Description 03/28/2020 Transcribe Orders [address] [address] Jie Wu NP [address] [place] [phone] [email or web address] Cervical radiculopathy (Primary Dx) Social History Tobacco [...] CD Pulmonary, Allergy and Critical Care Medicine [address] [place] [address] Conner Sneed MD [address] [place] [address] [email or web address] 03/29/2025 10:15 AM EDT Office Visit [facility] [address] [place] [address], [address] [place] [address] Zack Sanchez DO [address] [place] [address] 05/14/2025 1:00 PM EST Office Visit [facility] [address] [place] [address] 3rd [facility], [address] [place] [address] Rehan Landaverde MD [address] [place] [address] Scheduled Procedures Name Priority Associated Diagnoses Date/Ti me EMI MONITOR INSERTION IN GAS METER CHECKER Systolic congestive heart failure, unspecified HF chronicity [...] documented as of this encounter Care Teams Insurance Claims Specialist Relationship Specialty Start Date End Date Olegario Guy MD [address] [place] [address] [address] [place] [phone] [email or web address] PCP - General Family Medicine 03/28/20 01/09/22 Marlene Harden NP [address] [place] [address] PCP - General Family Medicine 01/10/22 08/07/24 Cj Meyer DO 70 [place] [address] PCP - General Internal Medicine 08/08/24 Yue Rodrigez, VENKATA 70 [place] [address] [facility] Corporate Staff Accountant 02/21/22 06/09/23 Jennifer Dash LCSW 10 [place] [address] [email or web address] [facility] Social Work 02/01/23 02/11/23 Yvonne Montana 10 [place], [place] [email or web address] [facility] Community Health Worker 02/25/23 06/09/23 Dennis Temple MBBS [address] [place] [address] [email or web address] Primary Oncologist Hematology and Oncology 04/02/23 Gabriela Barnhart CNP [address] [place] [address] [email or web address] Nurse Practitioner Medical Oncology 01/16/24 documented as of this encounter Additional Source Comments The information contained in this document represents components of the legal health record. It is not the complete legal health record.[facility]
--- OUTSIDE RECORDS SUMMARY | 2025-03-15 06:12 | XMS_ITS | Encounter Summary ---
Author Organization [facility] Address [address] [facility] [address] [place] [address] Phone Care Team Providers Care Cage/Vault Supervisor Name Role Phone Olegario Guy MD Primary Care Provider [phone] Marlene Harden NP Primary Care Provider Yue Rodrigez RN Unavailable Jennifer Dash FINANCIAL SERVICE REPRESENTATIVE Unavailable ndelabar Yvonne Montana Unavailable Dennis Temple MBBS Unavailable Gabriela Barnhart BROOMCORN SORTER Unavailable Cj Meyer DO Primary Care Provider Encounter Details Date Type Department Care Team (Late st Contact Info) Description 01/05/2022 Procedure Pass [facility], Ct Scan - [address] [address] Social History Tobacco Use Types Packs/Day Years [...] Pulmonary, Allergy and Critical Care Medicine 10 [facility] [place] [address] Conner Sneed MD 10 [facility] 2nd [place] [address] [email or web address] 03/29/2025 10:15 AM EDT Office Visit [facility] [address] 3rd [facility], [address] [place] [address] Zack Sanchez DO 22 [facility] [address] [place] [address] 05/14/2025 1:00 PM EST Office Visit [address] 3rd [facility], [address] [place] [address] Rehan Landaverde MD [address] [place] [address] [email or web address] Scheduled Procedures Name Priority Associated Diagnoses Date/Ti me 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 IN BEACH 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 Systolic congestive heart failure, unspecified HF chronicity [...] documented as of this encounter Care Teams Cage/Vault Supervisor Relationship Specialty Start Date End Date Olegario Guy MD 230 [facility] 6260 [place] [phone] [email or web address] PCP - General Family Medicine 03/28/20 01/09/22 Marlene Harden NP 70 [place], [place] PCP - General Family Medicine 01/10/22 08/07/24 Cj Meyer DO [address] [place] [address] PCP - General Internal Medicine 08/08/24 Yue Rodrigez RN 70 [place] [address] [facility] Mold Stamper 02/21/22 06/09/23 Jennifer Dash LCSW [address] [place] [address] [facility] Social Work 02/01/23 02/11/23 Yvonne Montana [address] [place] [address] [email or web address] [facility] Community Health Worker 02/25/23 06/09/23 Dennis Temple MBBS [address] [place] [address] [email or web address] Primary Oncologist Hematology and Oncology 04/02/23 Gabriela Barnhart CNP [address] [place] [address] [email or web address] Nurse Practitioner Medical Oncology 01/16/24 documented as of this encounter Additional Source Comments The information contained in this document represents components of the legal health record. It is not the complete legal health record.[facility]
--- OUTSIDE RECORDS SUMMARY | 2025-03-15 06:12 | XMS_ITS | Encounter Summary ---
Author Organization [facility] Address [address] [facility] [address] [place] [address] Phone Care Team Providers Care Live In Caregiver Name Role Phone Olegario Guy MD Primary Care Provider Marlene Harden NP Primary Care Provider [phone] Yue Rodrigez RN Unavailable Jennifer Dash INDUSTRIAL MAINTENANCE MILLWRIGHT Unavailable ndelabar Yvonne Montana Unavailable [email or web address] Dennis Temple MBBS Unavailable Gabriela Barnhart STORE SALES MANAGER Unavailable Cj Meyer DO Primary Care Provider [phone] Reason for Referral * MRI/CAT Scan - Closed Specialty Diagnoses / Procedures Referred By Contflorentin t Referred To Contact Radiology Diagnoses Abnormal chest x-ray Procedures CT Chest Marlene Harden NP Phone: tel: Referral ID Status Reason Start Date Expiration Date Visits Re quested Visits Authorized [id number] Closed 01/05/2022 01/05/2023 1 1 Encounter Details Date Type Department Care Team (Latest Contact Info) Description 01/05/2022 Transcribe Orders Virtual Department 30 [place] [address] Marlene Harden NP [address] [place] [address] Abnormal chest x-ray (Primary Dx) Social History [...] CD Pulmonary, Allergy and Critical Care Medicine [address] [place] [address] Conner Sneed MD [address] [place] [address] [email or web address] 03/29/2025 10:15 AM EDT Office Visit [facility] [address]rd [facility], [address] [place] [address] Zack Sanchez DO 22 [facility] [address] [place] [address] 05/14/2025 1:00 PM EST Office Visit [facility] [address] 3rd Floor, [address] [place] [address] Rehan Landaverde MD [address] [place] [address] Scheduled Procedures Name Priority Associated Diagnoses Date/Ti me 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 IN POOL CLEANER Systolic congestive heart failure, unspecified HF [...] CT chest in 6-8 weeks. Marlene Harden CHILD DAY CARE PROVIDER IMG CT CHEST Final Result documented in [...] documented as of this encounter Care Teams Live In Caregiver Relationship Specialty Start Date End Date Olegario Guy MD [address] [place] [address] [address] [place] [address] [email or web address] PCP - General Family Medicine 03/28/20 01/09/22 Marlene Harden NP 70 [place] [address] PCP - General Family Medicine 01/10/22 08/07/24 Cj Meyer DO 70 [place] [address] PCP - General Internal Medicine 08/08/24 Yue Rodrigez RN 70 [place] [address] [email or web address] [facility] Body Trimmer Upholsterer 02/21/22 06/09/23 Jennifer Dash LCSW 10 [place], [place] [email or web address] [facility] Social Work 02/01/23 02/11/23 Yvonne Montana 10 [place], [place] [email or web address] [facility] Community Health Worker 02/25/23 06/09/23 Dennis Temple MBBS [address] [place] [address] [email or web address] Primary Oncologist Hematology and Oncology 04/02/23 Gabriela Barnhart CNP [address] [place] [address] [email or web address] Nurse Practitioner Medical Oncology 01/16/24 documented as of this encounter Additional Source Comments The information contained in this document represents components of the legal health record. It is not the complete legal health record.[facility]
--- OUTSIDE RECORDS SUMMARY | 2025-03-15 06:12 | XMS_ITS | Encounter Summary ---
Author Organization [facility] Address [address] [place] [address] Phone Care Team Providers Care Fingerprint Expert Name Role Phone Dereck Marlene Mook INDUSTRIAL ILLUMINATING ENGINEER Primary Care Provider [phone] Dennis Temple MBBS Unavailable Gabriela Barnhart WINDSHIELD INSTALLER Unavailable Cj Meyer DO Primary Care Provider Encounter Details Date Type Department Care Team (Late st Contact Info) Description 10/03/2023 Procedure Pass [facility], Ct Scan - [address] [address] Social History Tobacco Use Types Packs/Day Years Used Date Smoking Tobacco: Every Day Cigarettes 0.5 49 Started: 03/28/1976 Smokeless Tobacco: Never Comments:Started [...] Pulmonary, Allergy and Critical Care Medicine 10 [place] [address] Conner Sneed MD [address] [place] [address] [email or web address] 03/29/2025 10:15 AM EDT Office Visit [facility] [address] [place] [address], [address] [place] [address] Zack Sanchez DO [address] [place] [address] 05/14/2025 1:00 PM EST Office Visit [facility] [address] 3rd [facility], [address] [place] [address] Rehan Landaverde MD [address] [place] [address] Scheduled Procedures Name Priority Associated Diagnoses Date/Ti me 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 IN JACK PRIZER Systolic congestive heart failure, unspecified HF chronicity [...] documented as of this encounter Care Teams Fingerprint Expert Relationship Specialty Start Date End Date Marlene Harden NP 70 [place] [address] PCP - General Family Medicine 01/10/22 08/07/24 Cj Meyer DO 70 [place] [address] PCP - General Internal Medicine 08/08/24 Dennis Temple MBBS 70 [place] [address] [email or web address] Primary Oncologist Hematology and Oncology 04/02/23 Gabriela Barnhart CNP [address] [place] [address] [email or web address] Nurse Practitioner Medical Oncology 01/16/24 documented as of this encounter Additional Source Comments The information contained in this document represents components of the legal health record. It is not the complete legal health record.[facility]
--- OUTSIDE RECORDS SUMMARY | 2025-03-15 06:12 | XMS_ITS | Encounter Summary ---
Author Organization [facility] Address [address] [facility] [address] [place] [address] Phone Care Team Providers Care Scrub Tech Name Role Phone Olegario Guy MD Primary Care Provider Marlene Harden VISION TEACHER Primary Care Provider Yue Rodrigez RN Unavailable Jennifer Dash NATIONAL PARK TOUR GUIDE Unavailable ndelabar Yvonne Montana Unavailable Dennis Temple MBBS Unavailable [phone] Gabriela Barnhart SUPERVISOR ORDER TAKERS Unavailable Cj Meyer DO Primary Care Provider [phone] Encounter Details Date Type Department Care Team (Latest Contact Info) Description 01/02/2022 Transcribe Orders Virtual Department 30 [place] [address] Marlene Harden, CAM [address] [place], [place] [phone] Shortness of breath (Primary Dx); Dyspnea, unspecified [...] Description 03/16/2025 9:00 AM EDT Office Visit [facility] Pulmonary, Allergy and Critical Care Medicine [address] [facility] [place] [address] Conner Sneed MD 10 [facility] 2nd [place] [address] [email or web address] 03/29/2025 10:15 AM EDT Office Visit [facility] 22 [facility] 3rd Floor, [address] [place] [address] Zack Sanchez DO 22 [facility] [address] [place] [address] 05/14/2025 1:00 PM EST Office Visit [address] 3rd [facility], [address] [place] [address] Rehan Landaverde MD [address] [place] [address] Scheduled Procedures Name Priority Associated Diagnoses Date/Ti me 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 IN CUTTER WOODWIND REEDS Systolic congestive heart failure, unspecified HF chronicity documented as of this encounter Results * Pulmonary Function Test Reason for Exam: Dyspnea/Shortness of Breath; Type of PFT Test: Spirometry with bronchodilator, DLCO, Lung Volumes; Performing Location: [facility] (05/21/2022 3:49 PM EST) FEV1 1.08 liters [...] documented as of this encounter Care Teams Scrub Tech Relationship Specialty Start Date End Date Olegario Guy MD 230 [facility] [address] [place] [address] [email or web address] PCP - General Family Medicine 03/28/20 01/09/22 Marlene Harden VISION TEACHER 70 [place] [address] PCP - General Family Medicine 01/10/22 08/07/24 Cj Meyer DO [address] [place] [address] PCP - General Internal Medicine 08/08/24 Yue Rodrigez RN 70 [place] [address] [facility] Signalling And Communications Engineer 02/21/22 06/09/23 Jennifer Dash LCSW [address] [place] [address] [facility] Social Work 02/01/23 02/11/23 Yvonne Montana [address] [place] [address] [email or web address] [facility] Community Health Worker 02/25/23 06/09/23 Dennis Temple MBBS [address] [place] [address] [email or web address] Primary Oncologist Hematology and Oncology 04/02/23 Gabriela Barnhart CNP 30 [place] [address] Nurse Practitioner Medical Oncology 01/16/24 documented as of this encounter Additional Source Comments The information contained in this document represents components of the legal health record. It is not the complete legal health record.[facility]
--- OUTSIDE RECORDS SUMMARY | 2025-03-15 06:12 | XMS_ITS | Encounter Summary ---
Author Organization [facility] Address [address] [facility] [address] [place] [address] Phone Care Team Providers Care Combiner Operator Name Role Phone Marlene Harden NP Primary Care Provider Yue Rodrigez RN Unavailable Jennifer Dash AGRICULTURAL AIRCRAFT PILOT Unavailable felisa Yvonne Montana Unavailable Dennis Temple MBBS Unavailable [phone] Gabriela Barnhart FOOD AND BEVERAGE SERVER Unavailable Cj Meyer DO Primary Care Provider Encounter Details Date Type Department Care Team (Late st Contact Info) Description 05/29/2022 Procedure Pass [facility] Cardiovascular And Interventional Radiology [address] [place] [address] Social History Tobacco Use Types Packs/Day Years [...] Pulmonary, Allergy and Critical Care Medicine 10 [facility] [place] [address] Conner Sneed MD 10 [facility] 2nd [place] [address] [email or web address] 03/29/2025 10:15 AM EDT Office Visit [facility] [address] 3rd [facility], [address] [place] [address] Zack Sanchez DO 22 [facility] [address] [place] [address] 05/14/2025 1:00 PM EST Office Visit [address] 3rd [facility], [address] [place] [address] Rehan Landaverde MD [address] [place] [address] [email or web address] Scheduled Procedures Name Priority Associated Diagnoses Date/Ti me 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 IN JUNIOR HIGH SCHOOL TEACHER Systolic congestive heart failure, unspecified HF chronicity [...] documented as of this encounter Care Teams Combiner Operator Relationship Specialty Start Date End Date Marlene Harden NP 70 [place] [address] PCP - General Family Medicine 01/10/22 08/07/24 Cj Meyer DO 70 [place] [address] PCP - General Internal Medicine 08/08/24 Yue Rodrigez, VENKATA 70 [place] [address] [facility] Slide Attendant 02/21/22 06/09/23 Jennifer Dash LCSW 10 [place] [address] [email or web address] [facility] Social Work 02/01/23 02/11/23 Yvonne Montana 10 [place] [address] [facility] Community Health Worker 02/25/23 06/09/23 Dennis Temple MBBS [address] [place] [address] [email or web address] Primary Oncologist Hematology and Oncology 04/02/23 Gabriela Barnhart CNP [address] [place] [address] Nurse Practitioner Medical Oncology 01/16/24 documented as of this encounter Additional Source Comments The information contained in this document represents components of the legal health record. It is not the complete legal health record.[facility]
--- OUTSIDE RECORDS SUMMARY | 2025-03-15 06:12 | XMS_ITS | Encounter Summary ---
Author Organization [facility] Address [address] [facility] [address] [place] [address] Phone Care Team Providers Care Solar Thermal Installer Name Role Phone Marlene Harden NP Primary Care Provider [phone] Dennis Temple MBBS Unavailable [phone] Gabriela Barnhart DRYING MACHINE OPERATOR Unavailable Cj Meyer DO Primary Care Provider [phone] Reason for Referral * MRI/CAT Scan - Closed Specialty Diagnoses / Procedures Referred By Contflorentin t Referred To Contact Radiology Diagnoses Cigarette smoker Procedures CT Chest Lung Cancer Screening Initial Or Annual Marlene Harden NP Phone: tel: Referral ID Status Reason Start Date Expiration Date Visits Re quested Visits Authorized [id number] Closed 10/03/2023 10/02/2024 1 1 Encounter Details Date Type Department Care Team (Latest Contact Info) Description 10/03/2023 Transcribe Orders Virtual Department 30 [place] [address] Marlene Harden NP [address] [place], [place] [phone] Cigarette smoker (Primary Dx) Social History Tobacco [...] Pulmonary, Allergy and Critical Care Medicine 10 [facility] [place] [address] Conner Sneed MD [address] [address] [email or web address] 03/29/2025 10:15 AM EDT Office Visit [facility] [address] [place] [address] 3rd [facility], [address] [place] [address] Zack Sanchez DO [address] [place] [address] [place] [address] 05/14/2025 1:00 PM EST Office Visit [facility] [address] 3rd Floor, [address] [place] [address] Rehan Landaverde MD [address] [place] [address] [email or web address] Scheduled Procedures Name Priority Associated Diagnoses Date/Ti tx 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 IN GAME MASTER Systolic congestive heart failure, unspecified HF chronicity [...] clinician's provided indication for this examination in [facility]: Lung Cancer Screening - CURRENT smoker [...] clinician's provided indication for this examination in [facility]:Lung Cancer Screening - CURRENT smoker (20+ [...] categories can be found at:[email or web address] Marlene Harden DISPUTE SPECIALIST IMG CT CHEST Final Result documented [...] documented as of this encounter Care Teams Solar Thermal Installer Relationship Specialty Start Date End Date Marlene Harden NP 70 [place] [address] PCP - General Family Medicine 01/10/22 08/07/24 Cj Meyer DO 70 [place] [address] PCP - General Internal Medicine 08/08/24 Dennis Temple MBBS 70 [place] [address] [email or web address] Primary Oncologist Hematology and Oncology 04/02/23 Gabriela Barnhart CNP [address] [place] [address] (work) [email or web address] Nurse Practitioner Medical Oncology 01/16/24 documented as of this encounter Additional Source Comments The information contained in this document represents components of the legal health record. It is not the complete legal health record.[facility]
--- OUTSIDE RECORDS SUMMARY | 2025-03-15 06:12 | XMS_ITS | Encounter Summary ---
Author Organization [facility] Address [address] [facility] [address] [place] [address] Phone Care Team Providers Care Padding Machine Operator Name Role Phone Marlene Harden LEARNING AND DEVELOPMENT COORDINATOR Primary Care Provider [phone] Yue Rodrigez RN Unavailable Jennifer Dash EXTENSION DIVISION DIRECTOR Unavailable felisa Yvonne Montana Unavailable Dennis Temple MBBS Unavailable [phone] Gabriela Barnhart WINDOWS SERVER SUPPORT TECHNICIAN Unavailable Cj Meyer DO Primary Care Provider [phone] Encounter Details Date Type Department Care Team (Late st Contact Info) Description 05/14/2022 Transcribe Orders [facility] 30 [place] [address] Marlene Harden NP [address] [place], [place] [phone] Social History Tobacco Use Types Packs/Day Years [...] Care Medicine 10 [facility] [place] [address] Conner Sneed MD 10 [facility] 2nd [place] [address] [email or web address] 03/29/2025 10:15 AM EDT Office Visit [facility] [address] 3rd [facility], [address] [place] [address] Zack Sanchez DO 22 [facility] [address] [place] [address] 05/14/2025 1:00 PM EST Office Visit [facility] [address] 3rd [facility], [address] [place] [address] Rehan Landaverde MD [address] [place] [address] [email or web address] Scheduled Procedures Name Priority Associated Diagnoses Date/Ti me 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 IN CLINIC ASSISTANT Systolic congestive heart failure, unspecified HF chronicity [...] documented as of this encounter Care Teams Padding Machine Operator Relationship Specialty Start Date End Date Marlene Harden NP 70 [place] [address] PCP - General Family Medicine 01/10/22 08/07/24 Cj Meyer DO 70 [place] [address] PCP - General Internal Medicine 08/08/24 Yue Rodrigez RN 70 [place] [address] iCMP Manager Gaming 02/21/22 06/09/23 Jennifer Dash LCSW [address] [place] [address] iCMP Social Work 02/01/23 02/11/23 Yvonne Montana [address] [place] [address] [facility] Community Health Worker 02/25/23 06/09/23 Dennis Temple MBBS [address] [place] [address] [email or web address] Primary Oncologist Hematology and Oncology 04/02/23 Gabriela Barnhart CNP [address] [place] [address] Nurse Practitioner Medical Oncology 01/16/24 documented as of this encounter Additional Source Comments The information contained in this document represents components of the legal health record. It is not the complete legal health record.[facility]
--- OUTSIDE RECORDS SUMMARY | 2025-03-15 06:12 | XMS_ITS | Encounter Summary ---
Author Organization [facility] Address [address] [facility] [address] [place] [address] Phone Care Team Providers Care Skiving Machine Operator Name Role Phone Olegario Guy MD Primary Care Provider [phone] Marlene Harden NP Primary Care Provider Yue Rodrigez RN Unavailable Jennifer Dash DIESEL ENGINE TESTER Unavailable [email or web address] Yvonne Montana Unavailable [email or web address] Dennis Temple MBBS Unavailable [phone] Gabriela Barnhart MOTOR VEHICLE INSPECTOR Unavailable Cj Meyer DO Primary Care Provider Encounter Details Date Type Department Care Team (Latest Contact Info) Description 03/28/2020 Transcribe Orders Virtual Department 30 [place] [address] Jie Wu NP [address] [place] [phone] [email or web address] [email or web address] Neck pain (Primary Dx) Social History Tobacco [...] Pulmonary, Allergy and Critical Care Medicine 10 [facility] [place] [address] Conner Sneed MD 10 [facility] 2nd [place] [address] [email or web address] 03/29/2025 10:15 AM EDT Office Visit [facility] [address] [place] [address] 3rd [facility], [address] [place] [address] Zack Sanchez DO 22 [facility] [address] [place] [address] 05/14/2025 1:00 PM EST Office Visit [facility] [address] 3rd [facility], [address] [place] [address] Rehan Landaverde MD [address] [place] [address] Scheduled Procedures Name Priority Associated Diagnoses Date/Ti ut 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 IN INFORMATION TECHNOLOGY ADMINISTRATOR Systolic congestive heart failure, unspecified HF chronicity [...] stable. No evidence of instability. POS - [id number] Narrative 04/01/2020 9:03 AM EDT HISTORY: Left [...] is stable. No evidence ofinstability. POS - [id number] Jie Wu NP IMG XR SPINE Final [...] documented as of this encounter Care Teams Skiving Machine Operator Relationship Specialty Start Date End Date Olegario Guy MD 230 [facility] [address]160 [place] [phone] [email or web address] PCP - General Family Medicine 03/28/20 01/09/22 Marlene Harden BAGGING MACHINE OPERATOR 70 [place] [address] PCP - General Family Medicine 01/10/22 08/07/24 Cj Meyer DO [address] [place] [address] PCP - General Internal Medicine 08/08/24 Yue Rodrigez, VENKATA 70 [place] [address] [email or web address] [facility] Tactical Air Control Party Manager 02/21/22 06/09/23 Jennifer Dash LCSW [address] [place] [address] [email or web address] [facility] Social Work 02/01/23 02/11/23 Yvonne Montana [address] [place] [address] [email or web address] [facility] Community Health Worker 02/25/23 06/09/23 Dennis Temple MBBS [address] [place] [address] [email or web address] Primary Oncologist Hematology and Oncology 04/02/23 Gabriela Barnhart CNP [address] [place] [address] Nurse Practitioner Medical Oncology 01/16/24 documented as of this encounter Additional Source Comments The information contained in this document represents components of the legal health record. It is not the complete legal health record.[facility]
--- OUTSIDE RECORDS SUMMARY | 2025-03-15 06:12 | XMS_ITS | Encounter Summary ---
Author Organization [facility] Address [address] [place] [address] Phone Care Team Providers Care Bike Designer Name Role Phone Marlene Harden LEASE ADMINISTRATION SUPERVISOR Primary Care Provider [phone] Yue Rodrigez RN Unavailable Yvonne Montana Unavailable [email or web address] Dennis Temple MBBS Unavailable [phone] Gabriela Barnhart REDEVELOPMENT SPECIALIST Unavailable Cj Meyer DO Primary Care Provider [phone] Encounter Details Date Type Department Care Team (Late st Contact Info) Description 03/03/2023 Procedure Pass [facility], Ct Scan - [address] [address] Social History Tobacco Use Types Packs/Day Years [...] 3:07 PM EDT Alycia Mahajan RN * [place] Suicide Severity Rating Scale (Screener/Recent Self-Report) Question Answer Date of Assessment Author 1. Wish to be (Past 1 Month) No 03/03/2023 3:07 PM EDT Alycia Mahajan RN 2. Non-Specific Active Suici meghan Thoughts (Past 1 Month) No 03/03/2023 3:07 PM EDT Enedelia Mahajan RN 6. Suicidal Behavior (Lifetime) No 3:07 PM EDT Alycia Mahajan RN documented as of this encounter Plan of Treatment Upcoming Encounters Date Type Department Care Team (Late st Contact Info) Description 03/16/2025 9:00 AM EDT Office Visit [facility] Pulmonary, Allergy and Critical Care Medicine [address] [place] [address] Conner Sneed MD [address] [place] [address] [email or web address] 03/29/2025 10:15 AM EDT Office Visit [facility] [address] [place] [address], [address] [place] [address] Zack Sanchez DO 22 [facility] [address] [place] [address] 05/14/2025 1:00 PM EST Office Visit [facility] [address] [place] [address] 3rd Floor, [address] [place] [address] Rehan Landaverde MD 50 [place] [address] [email or web address] Scheduled Procedures Name Priority Associated Diagnoses Date/Ti me 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 IN SLOT SHIFT MANAGER Systolic congestive heart failure, unspecified HF [...] documented as of this encounter Care Teams Bike Designer Relationship Specialty Start Date End Date Marlene Harden NP 70 [place] [address] PCP - General Family Medicine 01/10/22 08/07/24 Cj Meyer DO 70 [place] [address] PCP - General Internal Medicine 08/08/24 Yue Rodrigez, VENKATA 70 [place] [address] iCMP Process Manager 02/21/22 06/09/23 Yvonne Montana 70 [place] [address] [email or web address] [facility] Community Health Worker 02/25/23 06/09/23 Dennis Temple MBBS 70 [place] [address] [email or web address] Primary Oncologist Hematology and Oncology 04/02/23 Gabriela Barnhart CNP [address] [place] [address] [email or web address] Nurse Practitioner Medical Oncology 01/16/24 documented as of this encounter Additional Source Comments The information contained in this document represents components of the legal health record. It is not the complete legal health record.[facility]
--- OUTSIDE RECORDS SUMMARY | 2025-03-15 06:13 | XMS_ITS | Clinical Summary ---
Author Organization [facility] Address [address] [place] [address] Care Team Providers Care White Goods Appliance Tech Name Role Phone Marlene Harden NP Primary Care Provider [phone] Social History Tobacco Use Types Packs/Day Years [...] patient's age to complete this topic Insurance [facility] Plan Care Teams White Goods Appliance Tech Relationship Specialty Start Date End Date Marlene Harden NP 70 [place] [address] PCP - General Nurse Practitioner 03/05/23
--- OUTSIDE RECORDS SUMMARY | 2025-03-15 06:13 | XMS_ITS | Encounter Summary ---
Author Organization [facility] Address [address] [place] [address] Phone Care Team Providers Care Benzene Worker Name Role Phone Dereck Marlene Mook TOOL AND DIE MAKER/DESIGNER Primary Care Provider [phone] Dennis Temple MBBS Unavailable [phone] Gabriela Barnhart CONTRACTING SPECIALIST Unavailable Cj Meyer DO Primary Care Provider [phone] Encounter Details Date Type Department Care Team (Late st Contact Info) Description 07/18/2024 Procedure Pass [facility], [address] [address] Social History Tobacco Use Types Packs/Day Years [...] [facility] Pulmonary, Allergy and Critical Care Medicine [address] [place] [address] Conner Sneed MD [address] [address] [email or web address] 03/29/2025 10:15 AM EDT Office Visit [facility] [address] 3rd [facility], [address] [place] [address] Zack Sanchez DO 22 [facility] [address] [place] [address] 05/14/2025 1:00 PM EST Office Visit [facility] [address] 3rd [facility], [address] [place] [address] Rehan Landaverde MD [address] [place] [address] Scheduled Procedures Name Priority Associated Diagnoses Date/Ti wv 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 IN PHYSICAL CHEMISTRY TEACHER Systolic congestive heart failure, unspecified HF [...] documented as of this encounter Care Teams Benzene Worker Relationship Specialty Start Date End Date Marlene Harden NP 70 [place] [address] PCP - General Family Medicine 01/10/22 08/07/24 Cj Meyer DO 70 [place] [address] PCP - General Internal Medicine 08/08/24 Dennis Temple MBBS [address] [place] [address] [email or web address] .[email or web address] Primary Oncologist Hematology and Oncology 04/02/23 Gabriela Barnhart CNP [address] [place] [address] [email or web address] Nurse Practitioner Medical Oncology 01/16/24 documented as of this encounter Additional Source Comments The information contained in this document represents components of the legal health record. It is not the complete legal health record.[facility]
--- OUTSIDE RECORDS SUMMARY | 2025-03-15 06:13 | XMS_ITS | Encounter Summary ---
Author Organization [facility] Address [address] [place] [address] Phone Care Team Providers Care [employer] Lead Ads Marketing Name Role Phone Dereck Marlene Mook ANIMAL BEHAVIOURIST Primary Care Provider Dennis Temple MBBS Unavailable Gabriela Barnhart ADMITTING CLERK Unavailable Cj Meyer DO Primary Care Provider Encounter Details Date Type Department Care Team (Late st Contact Info) Description 07/18/2024 Procedure Pass [facility], Ct Scan - [address] [address] Social History Tobacco Use Types Packs/Day Years [...] Upcoming Encounters Date Type Department Care Team ([facility] st Contact Info) Description 03/16/2025 9:00 AM EDT Office Visit [facility] Pulmonary, Allergy and Critical Care Medicine [address] [place] [address] Conner Sneed MD [address] [address] [email or web address] 03/29/2025 10:15 AM EDT Office Visit [facility] [address] 3rd [facility], [address] [place] [address] Zack Sanchez DO 22 [facility] [address] [place] [address] 05/14/2025 1:00 PM EST Office Visit [facility] [address] 3rd [facility], [address] [place] [address] Rehan Landaverde MD [address] [place] [address] Scheduled Procedures Name Priority Associated Diagnoses Date/Ti me 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 IN EVENT COORDINATOR MARKETING AND SALES Systolic congestive heart failure, unspecified HF chronicity [...] as of this encounter Care Teams [employer] Lead Ads Marketing Relationship Specialty Start Date End Date Marlene Harden NP 70 [place] [address] PCP - General Family Medicine 01/10/22 08/07/24 Cj Meyer DO 70 [place] [address] PCP - General Internal Medicine 08/08/24 Dennis Temple MBBS [address] [place] [address] [email or web address] Primary Oncologist Hematology and Oncology 04/02/23 Gabriela Barnhart CNP [address] [place] [address] [email or web address] Nurse Practitioner Medical Oncology 01/16/24 documented as of this encounter Additional Source Comments The information contained in this document represents components of the legal health record. It is not the complete legal health record.[facility]
--- OUTSIDE RECORDS SUMMARY | 2025-03-15 06:13 | XMS_ITS | Encounter Summary ---
Author Organization [facility] Address [address] [facility] [address] [place] [address] Phone Care Team Providers Care Branch Library Clerk Name Role Phone Cassie Hardensy Mook SALES OFFICER Primary Care Provider Yue Rodrigez RN Unavailable Jennifer Dash MUSIC STORE MANAGER Unavailable felisa Yvonne Montana Unavailable [email or web address] Dennis Temple MBBS Unavailable [phone] Gabriela Barnhart TAPER/FINISHER Unavailable Cj Meyer DO Primary Care Provider [phone] Encounter Details Date Type Department Care Team (Late st Contact Info) Description 12/13/2022 Procedure Pass [facility], Ct Scan - [address] [address] Social History Tobacco Use Types Packs/Day Years [...] Pulmonary, Allergy and Critical Care Medicine 10 [place] [address] Conner Sneed MD [address] [place] [address] [email or web address] 03/29/2025 10:15 AM EDT Office Visit [facility] [address] [place] [address], [address] [place] [address] Zack Sanchez DO [address] [place] [address] [place] [address] 05/14/2025 1:00 PM EST Office Visit [facility] [address], [address] [place] [address] Rehan Landaverde MD [address] [place] [address] Scheduled Procedures Name Priority Associated Diagnoses Date/Ti me 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 IN CLAMSHELL OPERATOR Systolic congestive heart failure, unspecified HF [...] documented as of this encounter Care Teams Branch Library Clerk Relationship Specialty Start Date End Date Marlene Harden NP 70 [place] [address] PCP - General Family Medicine 01/10/22 08/07/24 Cj Meyer DO 70 [place] [address] PCP - General Internal Medicine 08/08/24 Yue Rodrigez, VENKATA 70 [place] [address] [email or web address] [facility] Filter Cleaner 02/21/22 06/09/23 Jennifer Dash LCSW 10 [place] [address] [email or web address] [facility] Social Work 02/01/23 02/11/23 Yvonne Montana 10 [place] [address] [facility] Community Health Worker 02/25/23 06/09/23 Dennis Temple MBBS [address] [place] [address] [email or web address] Primary Oncologist Hematology and Oncology 04/02/23 Gabriela Barnhart CNP [address] [place] [address] [email or web address] Nurse Practitioner Medical Oncology 01/16/24 documented as of this encounter Additional Source Comments The information contained in this document represents components of the legal health record. It is not the complete legal health record.[facility]
--- OUTSIDE RECORDS SUMMARY | 2025-03-15 06:13 | XMS_ITS | Encounter Summary ---
Author Organization [facility] Address [address] [place] [address] Phone Care Team Providers Care Paring Machine Operator Name Role Phone DereckMarlene Mook COMPUTER METEOROLOGIST Primary Care Provider Dennis Temple MBBS Unavailable Gabriela Barnhart PEOPLESOFT FINANCIALS CONSULTANT Unavailable Cj Meyre DO Primary Care Provider Encounter Details Date Type Department Care Team (Late st Contact Info) Description 07/17/2024 Procedure Pass [facility] [address] [place] [address] Social History Tobacco Use Types Packs/Day Years [...] No Risk Indicated 07/17/2024 1:48 PM Sofy Harry, VENKATA * [place] Suicide Severity Rating Scale (Screener/Recent Self-Report) Question [...] Pulmonary, Allergy and Critical Care Medicine 10 [facility] [place] [address] Conner Sneed MD [address] [place] [address] [email or web address] 03/29/2025 10:15 AM EDT Office Visit [facility] [address], [address] [place] [address] Zack Sanchez DO [address] [place] [address] [place] [address] 05/14/2025 1:00 PM EST Office Visit [address], [address] [place] [address] Rehan Landaverde MD [address] [place] [address] Scheduled Procedures Name Priority Associated Diagnoses Date/Ti in 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 IN PIPE CUTTER Systolic congestive heart failure, unspecified HF chronicity [...] documented as of this encounter Care Teams Paring Machine Operator Relationship Specialty Start Date End Date Marlene Harden NP 70 [place] [address] PCP - General Family Medicine 01/10/22 08/07/24 Cj Meyer DO 70 [place] [address] PCP - General Internal Medicine 08/08/24 Dennis Temple MBBS 70 [place] [address] [email or web address] Primary Oncologist Hematology and Oncology 04/02/23 Gabriela Barnhart CNP 30 [place] [address] [email or web address] Nurse Practitioner Medical Oncology 01/16/24 documented as of this encounter Additional Source Comments The information contained in this document represents components of the legal health record. It is not the complete legal health record.[facility]
--- OUTSIDE RECORDS SUMMARY | 2025-03-15 06:13 | XMS_ITS | Encounter Summary ---
Author Organization [facility] Address [address] [place] [address] Phone Care Team Providers Care Racetrack Steward Name Role Phone Temple, Ahmastu Mccann MBBS Unavailable [phone] Pack, Gabriela FOLLOW UP SPECIALIST Unavailable Cj Meyer DO Primary Care Provider [phone] Encounter Details Date Type Department Care Team (Late st Contact Info) Description 12/09/2024 Procedure Pass [facility], Ct Scan - [address] [address] Social History Tobacco Use Types Packs/Day Years [...] Pulmonary, Allergy and Critical Care Medicine 10 [facility] [place] [address] Conner Sneed MD [address] [address] [email or web address] 03/29/2025 10:15 AM EDT Office Visit [facility] [address] 3rd Floor, [address] [place] [address] Zack Sanchez DO 22 [facility] [address] [place] [address] 05/14/2025 1:00 PM EST Office Visit [facility] [address]rd Floor, [address] [place] [address] Rehan Landaverde MD [address] [place] [address] [email or web address] Scheduled Procedures Name Priority Associated Diagnoses Date/Ti me 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 IN TEST ARCHITECT Systolic congestive heart failure, unspecified HF chronicity documented as of this encounter Visit Diagnoses Not on filedocumented in this encounter Additional Health Concerns Assessment Noted Time PHQ-2 Depression Total Score: 2 03/28/20 22 11:32 AM EDT documented as of this encounter Care Teams Racetrack Steward Relationship Specialty Start Date End Date Cj Meyer DO [address] [place] [address] PCP - General Internal Medicine 08/08/24 Dennis Temple MBBS [email or web address] Primary Oncologist Hematology and Oncology 04/02/23 Gabriela Barnhart CNP [address] [place] [address] [email or web address] Nurse Practitioner Medical Oncology 01/16/24 documented as of this encounter Additional Source Comments The information contained in this document represents components of the legal health record. It is not the complete legal health record.[facility]
--- OUTSIDE RECORDS SUMMARY | 2025-03-15 06:13 | XMS_ITS | Encounter Summary ---
Author Organization [facility] Address [address] [place] [address] Phone Care Team Providers Care Grooming Salon Manager Name Role Phone Temple, Ahmastu Mccann MBBS Unavailable Pack, Gabriela INSPECTOR AND HAND PACKAGER Unavailable Cj Meyer DO Primary Care Provider [phone] Encounter Details Date Type Department Care Team (Late st Contact Info) Description 08/30/2024 Procedure Pass [facility], Ct Scan - [facility] [address] [place] [address] Social History Tobacco Use Types Packs/Day Years [...] Upcoming Encounters Date Type Department Care Team ([facility] st Contact Info) Description 03/16/2025 9:00 AM EDT Office Visit [facility] Pulmonary, Allergy and Critical Care Medicine 10 [facility][1[facility] [place] [address] Conner Sneed MD [address] [address] [email or web address] 03/29/2025 10:15 AM EDT Office Visit [facility] [address] 3rd Floor, [address] [place] [address] Zack Sanchez DO 22 [facility] [address] [place] [address] 05/14/2025 1:00 PM EST Office Visit [facility] [address] 3rd Floor, [address] [place] [address] Rehan Landaverde MD [address] [place] [address] [email or web address] Scheduled Procedures Name Priority Associated Diagnoses Date/Ti me 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 IN GYMNASIUM TEACHER Systolic congestive heart failure, unspecified HF chronicity documented as of this encounter Visit Diagnoses Not on filedocumented in this encounter Additional Health Concerns Infection Onset Date Last Indicated Resolved Time CoV-Risk Comment:Per note documentation 08/29/2024 08/29/2024 7:27 AM EST Assessment Noted Time PHQ-2 Depression Total Score: 2 03/28/20 22 11:32 AM EDT documented as of this encounter Care Teams Grooming Salon Manager Relationship Specialty Start Date End Date Cj Meyer DO [address] [place] [address] PCP - General Internal Medicine 08/08/24 Dennis Temple MBBS [email or web address] Primary Oncologist Hematology and Oncology 04/02/23 Gabriela Barnhart CNP 30 [place] [address] Nurse Practitioner Medical Oncology 01/16/24 documented as of this encounter Additional Source Comments The information contained in this document represents components of the legal health record. It is not the complete legal health record.[facility]
--- OUTSIDE RECORDS SUMMARY | 2025-03-15 06:13 | XMS_ITS | Encounter Summary ---
Author Organization [facility] Address [address] [place] [address] Phone Care Team Providers Care Skidway Worker Name Role Phone Cassie Hardensy Mook ENVIRONMENTAL ENGINEERING AIDE Primary Care Provider [phone] Yue Rodrigez RN Unavailable Jennifer Dash MILIEU COORDINATOR Unavailable felisa Yvonne Montana Unavailable Dennis Temple MBBS Unavailable [phone] Gabriela Barnhart AIRCRAFT ENGINE INSTALLER Unavailable Cj Meyer DO Primary Care Provider [phone] Encounter Details Date Type Department Care Team (Late st Contact Info) Description 12/13/2022 Procedure Pass [facility], Ct Scan - [address] [address] Social History Tobacco Use Types Packs/Day Years [...] Pulmonary, Allergy and Critical Care Medicine 10 [place] [address] Conner Sneed MD [address] [place] [address] [email or web address] 03/29/2025 10:15 AM EDT Office Visit [facility] [address] [place] [address], [address] [place] [address] Zack Sanchez DO [address] [place] [address] [place] [address] 05/14/2025 1:00 PM EST Office Visit [facility] [address], [address] [place] [address] Rehan Landaverde MD [address] [place] [address] Scheduled Procedures Name Priority Associated Diagnoses Date/Ti me 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 IN BULK SYSTEM OPERATOR Systolic congestive heart failure, unspecified HF [...] documented as of this encounter Care Teams Skidway Worker Relationship Specialty Start Date End Date Marlene Harden NP 70 [place] [address] PCP - General Family Medicine 01/10/22 08/07/24 Cj Meyer DO 70 [place] [address] PCP - General Internal Medicine 08/08/24 Yue Rodrigez, VENKATA 70 [place] [address] [email or web address] [facility] Costume Rental Clerk 02/21/22 06/09/23 Jennifer Dash LCSW 10 [place] [address] [email or web address] [facility] Social Work 02/01/23 02/11/23 Yvonne Montana 10 [place] [address] [facility] Community Health Worker 02/25/23 06/09/23 Dennis Temple MBBS [address] [place] [address] [email or web address] Primary Oncologist Hematology and Oncology 04/02/23 Gabriela Barnhart CNP [address] [place] [address] [email or web address] Nurse Practitioner Medical Oncology 01/16/24 documented as of this encounter Additional Source Comments The information contained in this document represents components of the legal health record. It is not the complete legal health record.[facility]
--- OUTSIDE RECORDS SUMMARY | 2025-03-15 06:13 | XMS_ITS | Encounter Summary ---
Author Organization [facility] Address [address] [facility] [address] [facility] [address] [place] [address] Phone Care Team Providers Care Construction And Maintenance Inspector Name Role Phone Olegario Guy MD Primary Care Provider Marlene Harden REHAB AIDE Primary Care Provider uYe Rodrigez RN Unavailable Jennifer Dash TREE AND SHRUB WORKER Unavailable [email or web address] Yvonne Montana Unavailable [email or web address] Dennis Temple MBBS Unavailable Gabriela Barnhart CHEMISTRY QUALITY CONTROL ANALYST Unavailable Cj Meyer DO Primary Care Provider Encounter Details Date Type Department Care Team (Latest Contact Info) Description 11/25/2019 Transcribe Orders Virtual Department 30 [place] [address] Marlene Harden, REHAB AIDE [address] [place], [place] [id number] Atypical chest pain (Primary Dx) Social History [...] Care Medicine 10 [facility] [place] [address] Conner Sneed MD 10 [facility] 2nd [place] [address] [email or web address] 03/29/2025 10:15 AM EDT Office Visit [facility] [address] [place] [address] 3rd [facility], [address] [place] [address] Zack Sanchez DO 22 [facility] [address] [place] [address] 05/14/2025 1:00 PM EST Office Visit [facility] [address] 3rd [facility], [address] [place] [address] Rehan Landaverde MD [address] [place] [address] Scheduled Procedures Name Priority Associated Diagnoses Date/Ti me 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 IN BONE CHAR KILN OPERATOR Systolic congestive heart failure, unspecified HF [...] documented as of this encounter Care Teams Construction And Maintenance Inspector Relationship Specialty Start Date End Date Olegario Guy MD 230 [facility] [address] [place] [address] [email or web address] PCP - General Family Medicine 03/28/20 01/09/22 Marlene Harden, REHAB AIDE 70 [place] [address] PCP - General Family Medicine 01/10/22 08/07/24 Cj Meyer DO [address] [place] [address] PCP - General Internal Medicine 08/08/24 Yue Rodrigez RN 70 [place] [address] [email or web address] [facility] Chuck Wagon Driver 02/21/22 06/09/23 Jennifer Dash LCSW [address] [place] [address] [email or web address] [facility] Social Work 02/01/23 02/11/23 Yvonne Montana 10 [place], [place] [email or web address] [facility] Community Health Worker 02/25/23 06/09/23 Dennis Temple MBBS [address] [place] [address] [email or web address] Primary Oncologist Hematology and Oncology 04/02/23 Gabriela Barnhart CNP [address] [place] [address] [email or web address] Nurse Practitioner Medical Oncology 01/16/24 documented as of this encounter Additional Source Comments The information contained in this document represents components of the legal health record. It is not the complete legal health record.[facility]
--- OUTSIDE RECORDS SUMMARY | 2025-03-15 06:13 | XMS_ITS | Encounter Summary ---
Author Organization [facility] Address [address] [facility] [address] [place] [address] Phone Care Team Providers Care Board Of Education Secretary Name Role Phone Marlene Harden FLIGHT ATTENDANT Primary Care Provider [phone] Yue Rodrigez RN Unavailable Jennifer Dash MACHINE BANDER AND CELLOPHANER Unavailable felisa Yvonne Montana Unavailable Dennis Temple MBBS Unavailable [phone] Gabriela Barnhart COMPETITIVE ATHLETE Unavailable Cj Meyer DO Primary Care Provider [phone] Encounter Details Date Type Department Care Team (Late st Contact Info) Description 09/03/2022 Procedure Pass [facility], Ct Scan - [address] [address] Social History Tobacco Use Types Packs/Day Years [...] Allergy and Critical Care Medicine 10 [facility] [place] [address] Conner Sneed MD 10 [facility] 2nd [place] [address] [email or web address] 03/29/2025 10:15 AM EDT Office Visit [facility] [address] 3rd [facility], [address] [place] [address] Zack Sanchez DO 22 [facility] [address] [place] [address] 05/14/2025 1:00 PM EST Office Visit [facility] [address] 3rd Floor, [address] [place] [address] Rehan Landaverde MD [address] [place] [address] Scheduled Procedures Name Priority Associated Diagnoses Date/Ti me 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 IN REFRIGERATION INSTALLER Systolic congestive heart failure, unspecified HF chronicity [...] documented as of this encounter Care Teams Board Of Education Secretary Relationship Specialty Start Date End Date Marlene Harden NP 70 [place] [address] PCP - General Family Medicine 01/10/22 08/07/24 Cj Meyer DO 70 [place] [address] PCP - General Internal Medicine 08/08/24 Yue Rodrigez RN 70 [place] [address] [facility] Avionics Mechanic 02/21/22 06/09/23 Jennifer Dash LCSW [address] [place] [address] [facility] Social Work 02/01/23 02/11/23 Yvonne Montana 10 [place] [address] [facility] Community Health Worker 02/25/23 06/09/23 Dennis Temple MBBS [address] [place] [address] [email or web address] Primary Oncologist Hematology and Oncology 04/02/23 Gabriela Barnhart CNP [address] [place] [address] Nurse Practitioner Medical Oncology 01/16/24 documented as of this encounter Additional Source Comments The information contained in this document represents components of the legal health record. It is not the complete legal health record.[facility]
--- OUTSIDE RECORDS SUMMARY | 2025-03-15 06:13 | XMS_ITS | Encounter Summary ---
Author Organization [facility] Address [address] [place] [address] Phone Care Team Providers Care Chief Information Officer Name Role Phone Temple, Ahmastu Mccann MBBS Unavailable Pack, Gabriela FOLDED TOWEL MACHINE OPERATOR Unavailable Cj Meyer DO Primary Care Provider [phone] Encounter Details Date Type Department Care Team (Late st Contact Info) Description 08/30/2024 Procedure Pass [facility], Ct Scan - [facility] 30 [place] [address] Social History Tobacco Use Types Packs/Day Years [...] Pulmonary, Allergy and Critical Care Medicine 10 [facility] [place] [address] Conner Sneed MD [address] [address] [email or web address] 03/29/2025 10:15 AM EDT Office Visit [facility] [address] 3rd Floor, [address] [place] [address] Zack Sanchez DO 22 [facility] [address] [place] [address] 05/14/2025 1:00 PM EST Office Visit [facility] [address] 3rd Floor, [address] [place] [address] Rehan Landaverde MD [address] [place] [address] [email or web address] Scheduled Procedures Name Priority Associated Diagnoses Date/Ti me 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 IN FULL TIME BABYSITTER Systolic congestive heart failure, unspecified HF chronicity documented as of this encounter Visit Diagnoses Not on filedocumented in this encounter Additional Health Concerns Infection Onset Date Last Indicated Resolved Time CoV-Risk Comment:Per note documentation 08/29/2024 08/29/2024 7:27 AM EST Assessment Noted Time PHQ-2 Depression Total Score: 2 03/28/20 22 11:32 AM EDT documented as of this encounter Care Teams Chief Information Officer Relationship Specialty Start Date End Date Cj Meyer DO [address] [place] [address] PCP - General Internal Medicine 08/08/24 Dennis Temple MBBS [email or web address] Primary Oncologist Hematology and Oncology 04/02/23 Gabriela Barnhart CNP 30 [place] [address] Nurse Practitioner Medical Oncology 01/16/24 documented as of this encounter Additional Source Comments The information contained in this document represents components of the legal health record. It is not the complete legal health record.[facility]
--- OUTSIDE RECORDS SUMMARY | 2025-03-15 06:13 | XMS_ITS | Encounter Summary ---
Author Organization [facility] Address [address] [place] [address] Phone Care Team Providers Care Bulk Plant Supervisor Name Role Phone Dereck Marlene Mook ROTARY SHEAR OPERATOR Primary Care Provider Dennis Temple MBBS Unavailable [phone] Gabriela Barnhart LIQUIFIED NATURAL GAS TECHNICIAN Unavailable Cj Meyer DO Primary Care Provider [phone] Encounter Details Date Type Department Care Team (Late st Contact Info) Description 07/28/2024 Procedure Pass [facility], Ct Scan - [address] [id number] Social History Tobacco Use Types Packs/Day Years [...] you moved in the past 12 sat th? Unable to assess 07/18/2024 Paying for Meds [...] Author No Risk Indicated 07/28/2024 9:13 PM Adrian Melo RN * Braxton Suicide Severity Rating Scale (Screener/Recent Self-Report) Question [...] [facility] Pulmonary, Allergy and Critical Care Medicine [address] [place] [address] Conner Sneed MD [address] [place] [address] [email or web address] 03/29/2025 10:15 AM EDT Office Visit [facility] [address], [address] [place] [address] Zack Sanchez DO [address] [place] [address] [place] [address] 05/14/2025 1:00 PM EST Office Visit [facility] [address], [address] [place] [address] Rehan Landaverde MD [address] [place] [address] Scheduled Procedures Name Priority Associated Diagnoses Date/Ti me 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 IN TECHNICIAN AUTOMATIC Systolic congestive heart failure, unspecified HF chronicity [...] documented as of this encounter Care Teams Bulk Plant Supervisor Relationship Specialty Start Date End Date Marlene Harden NP 70 [place] [address] PCP - General Family Medicine 01/10/22 08/07/24 Cj Meyer DO 70 [place] [address] PCP - General Internal Medicine 08/08/24 Dennis Temple MBBS 70 [place] [address] [email or web address] Primary Oncologist Hematology and Oncology 04/02/23 Gabriela Barnhart CNP 30 [place] [address] [email or web address] Nurse Practitioner Medical Oncology 01/16/24 documented as of this encounter Additional Source Comments The information contained in this document represents components of the legal health record. It is not the complete legal health record.[facility]
--- OUTSIDE RECORDS SUMMARY | 2025-03-15 06:13 | XMS_ITS | Encounter Summary ---
Author Organization [facility] Address [address] [facility] [address] [place] [address] Phone Care Team Providers Care Risk Professional Name Role Phone Marlene Harden NP Primary Care Provider [phone] Yue Rodrigez RN Unavailable Yvonne Montana Unavailable [email or web address] Dennis Temple MBBS Unavailable [phone] Gabriela Barnhart PACKAGE REINSPECTOR Unavailable Cj Meyer DO Primary Care Provider Encounter Details Date Type Department Care Team (Late st Contact Info) Description 02/22/2023 Procedure Pass [facility]oscopy Admitting Dept Virtual Department 30 [place] [address] Social History Tobacco Use Types Packs/Day Years [...] [facility]monary, Allergy and Critical Care Medicine [address] [place] [address] [place] [address] Conner Sneed MD [address] [place] [address] [email or web address] 03/29/2025 10:15 AM EDT Office Visit [facility] [address] [place] [address], [address] [place] [address] Zack Sanchez DO [address] [place] [address] [place] [address] 05/14/2025 1:00 PM EST Office Visit [facility] [address], [address] [place] [address] Rehan Landaverde MD [address] [place] [address] Scheduled Procedures Name Priority Associated Diagnoses Date/Ti me 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 IN DOPE SPRAYER Systolic congestive heart failure, unspecified HF chronicity [...] documented as of this encounter Care Teams Risk Professional Relationship Specialty Start Date End Date Marlene Harden NP 70 [place] [address] PCP - General Family Medicine 01/10/22 08/07/24 Cj Meyer DO 70 [place] [address] PCP - General Internal Medicine 08/08/24 Yue Rodrigez RN 70 [place] [address] [employer] Installation And Service Technician 02/21/22 06/09/23 Yvonne Montana [address] [place] [address] [facility] Community Health Worker 02/25/23 06/09/23 Dennis Temple MBBS 70 [place] [address] [email or web address] Primary Oncologist Hematology and Oncology 04/02/23 Gabriela Barnhart CNP 30 [place] [address] Nurse Practitioner Medical Oncology 01/16/24 documented as of this encounter Additional Source Comments The information contained in this document represents components of the legal health record. It is not the complete legal health record.[facility]
--- OUTSIDE RECORDS SUMMARY | 2025-03-15 06:13 | XMS_ITS | Clinical Summary ---
Author Organization [facility] Address [address] [facility] [address] [place] [address] Phone Care Team Providers Care Pawn Broker Name Role Phone Temple, Ahmastu Mccann MBBS Unavailable [phone] [employer]bey[employer]ola[employer] SR. MANAGER CORPORATE COMMUNICATIONS Unavailable jC Meyer DO Primary Care Provider [phone] Allergies Active Allergy Reactions Criticality Noted Date Comments Penicillamine 03/31/2014 Other reaction(s): shortness of breath Penicillins 08/04/2024 Scallops 03/31/2014 Other reaction(s): shortness of breath Medications gabapentin (NEURONTIN) 300 MG capsule Take 300 mg by mouth 2 (two) times a day. Usually just in the am and sometimes pm 02/06/20 22 Active OXYGEN-AIR DELIVERY SYSTEMS MISC 2 L by Intranasal route continuous. 2L at rest, 3 L upon ambulation via nasal cannula. 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 18 g 5 10/21/19 24 Active buPROPion (WELLBUTRIN SR) 150 MG SR 12 hr tablet 150 mg 2 (two) times a day. 06/01/20 24 Active albuterol 2.5 mg /3 mL (0.083 %) nebulizer solution Take 3 mL (2.5 mg total) by nebulization every 4 (four) hours as needed for shortness of breath/dyspnea. 07/18/19 25 Active ipratropium-alb uteroL (DUONEB) 0.5-3 mg (2.5 mg base)/3 mL nebulizer solution Take 3 mL by nebulization 4 (four) times a day. 07/18/19 25 Active fluticasone-ume clidin-vilanter (TRELEGY ELLIPTA) 200-62.5-25 mcg inhaler Inhale 1 puff into the lungs daily. Active rivaroxaban (XARELTO) 20 mg Tab Take 1 tablet every day by oral route in the evening. 06/10/20 23 Active oxyCODONE-aceta minophen (PERCOCET) 5-325 mg per tablet Take 1 tablet by mouth every 6 (six) hours as needed for pain (specific location in comments). Partial fill ok 10 tablet 09/01/19 25 Active torsemide (DEMADEX) 20 MG tablet 11/02/19 25 Active levETIRAcetam (KEPPRA) 750 MG IMMEDIATE release tablet Take 750 mg by mouth 2 (two) times a day. Active ferrous gluconate 324 mg (38 mg elemental) tablet Take 1 tablet (324 mg total) by mouth 3 (three) times a week on Saturday, Saturday, Saturday. 11/10/19 25 Active ascorbic acid, vitamin C, (VITAMIN C) 500 MG tablet Take 1 tablet (500 mg total) by mouth 3 (three) times a week on Saturday, Saturday, Saturday. 11/10/19 25 Active sacubitriL-vals pepe (ENTRESTO) 24-26 mg per tablet Take 1 tablet by mouth 2 (two) times a day. 11/08/19 25 Active metoprolol succinate (TOPROL-XL) 25 MG 24 hr tablet Take 0.5 tablets (12.5 mg total) by mouth daily. 11/09/19 25 Active XARELTO 10 mg tablet Take 10 mg by mouth daily. 11/18/19 25 Active roflumilast (DALIRESP) 500 mcg TabIndications: Pulmonary nodules,Chronic respiratory failure with hypoxia TAKE 1 TABLET BY MOUTH DAILY 90 tablet 1 03/11/20 25 Active roflumilast (DALIRESP) 500 mcg Tab Take 1 tablet (500 mcg total) by mouth daily. 30 tablet 4 12/10/19 25 2024 Discontinued Active Problems Problem Noted Date Diagnosed Date [...] also going to discuss this with his packing machine inspector in 1 month to see if he would like to proceed. Assessment & Plan (11/06/2024 4:37 PM EDT): -last stable in Aug on lasix 40 mg qd entresto 24-26 mg bid Most recent echo July showed recovered EF 65 to 70% general good cardiac function. Do not see any additional echocardiograms on the discharge paperwork from [facility] or [facility] where he has been. -gaining wt at intermediate and seemed to be overdiuresed in recent [...] general good cardiac function -gaining wt at intermediate and seemed to be overdiuresed in recent [...] 70% general good cardiac function During his intermediate stay stay 1 month well being significantly [...] stable Also has been on steroids at intermediate. This may be contributing to his weight gain. Being moderately anemic probably is not helping. Continue randy and carlos. He had a CT of the chest end of August that did not show any other findings than emphysema. His echocardiogram did not show signs of pulmonary hypertension. Chronic pain Continue chronic oxy Assessment & Plan (11/05/2024 8:08 AM EDT): Chronic COPD on home O2 2L and stable Also has been on steroids at intermediate. Continue kulwinder. Chronic pain Continue chronic oxy Assessment & Plan (11/05/2024 1:26 AM EDT): Chronic COPD on home O2 2L and stable Also has been on steroids at intermediate. Continue trellegy and duonebs. Chronic pain Continue chronic oxy Acute on [...] rehab Left hemiparesis 08/05/2024 Overview (08/30/2024): Per [facility] discharge summary 08/03/24 Cerebral hemorrhage 08/04/2024 Overview (08/30/2024): Right lentiform nucleus hemorrhage Per [facility] discharge summary 08/03/24 Assessment & Plan [...] initial hospitalization 07/30/2024, after initially presenting to [facility] and had findings of acute bleed. Immediately prior to that patient had a hospitalization for COPD exacerbation and suspected seizure where patient was placed on Keppra. Was discharged on 08/03/2024 to rehab however redeveloped worsening headache, found to have worsening vasogenic edema and subsequently readmitted at [facility] on 08/08/2024. Hospital course was complicated by COPD exacerbation secondary to RSV virus with patient was subsequently discharged on a steroid taper to [facility] rehab. -- No new concerns. His DOAC [...] initial hospitalization 07/30/2024, after initially presenting to [facility] and had findings of acute bleed. Immediately prior to that patient had a hospitalization for COPD exacerbation and suspected seizure where patient was placed on Keppra. -Was discharged on 08/03/2024 to rehab however redeveloped worsening headache, found to have worsening vasogenic edema and subsequently readmitted at [facility] on 08/08/2024. Hospital course was complicated by COPD exacerbation secondary to RSV virus with patient was subsequently discharged on a steroid taper to [facility] rehab. -Through reviewing discharge records from [facility] on 08/13/2024, recommendations from neurology were [...] or leukocytosis -Ceftriaxone azithromycin -repeat chest x-ray -front desk monitor -Supplemental oxygen Other hyperlipidemia 06/18/2024 Assessment [...] in late September until now -labs from intermediate 11 down to 7s, now in 8s. [...] follow-up with GI in the office. - ct meng cautiously Assessment & Plan (11/05/2024 8:08 AM EDT): - fatigue increased dyspnea with exertion that was of insidious onset over several weeks in late September until now -labs from intermediate 11 down to 7s, now in 8s, [...] September until now Labs provided by the intermediate reveal a drop in hemoglobin during that [...] on 08/26/2024 per recommendations from neurology from [facility] upon discharge with instructions to discontinue aspirin. -- Continue Toprol-XL, amiodarone rivaroxaban Assessment & Plan (08/30/2024 6:01 PM EST): Continue amiodarone, metoprolol 50 mg, Xarelto 20 mg. Patient resume Xarelto on 08/26/2024 per recommendations from neurology from [facility] upon discharge with instructions to discontinue [...] PM EST): With rapid ventricular response. His packing machine inspector, Dr. Morales started him on amiodarone 05/26 [...] however, shared decision to send patient to [facility] ED for evaluation/treatment to monitor closely due to above- stated signs/symptoms and hypotension. Assessment & Plan (10/15/2024 2:13 PM EDT): Patient is fluid overloaded on exam today. He has gained > 40 pounds since the last time he has been seen in the [facility] a few months ago. He is [...] improvement, no ICD was recommended. Follow-up with packing machine inspector in 3 months once resulted, sooner for [...] Encounters Date Type Department Care Team Description 03/11/2025 Refill [facility] Pulmonary, Allergy and Critical Care Medicine [address] [place] [address] [place] [address] Conner Sneed MD Medication Refill 03/03/2025 Telephone [facility] [address] 3[address] Floor, [address] [place] [address] Sindhu Ocasiopedro luis 01/22/2025 3:40 PM EDT Office Visit [facility] [address] Floor, [address] [place] [address] Rhean Landaverde MD Paroxysmal atrial fibrillation (Primary Dx) 12/19/2024 10:06 AM EDT - 12/19/2024 11:59 PM EDT Hospital Encounter [facility], [address] [address] Conner Sneed MD Discharge Disposition: Home or Self Care 12/14/2024 11:00 AM EDT Office Visit [facility] [address], [address] [place] [address] Zack Sanchez DO Systolic congestive heart failure, unspecified HF chronicity (Primary Dx); PAF (paroxysmal atrial fibrillation); Primary hypertension; Heart failure with reduced ejection fraction; Chronic respiratory failure with hypoxia 12/09/2024 Procedure Pass [facility], [address] [address] from Last 3 Months Immunizations Immunization Administration [...] Description 03/16/2025 9:00 AM EDT Office Visit [facility]monary, Allergy and Critical Care Medicine [address] [place] [address] [place] [address] Conner Sneed MD [address] [place] [address] [email or web address] 03/29/2025 10:15 AM EDT Office Visit [facility] [address] [place] [address] [address] [facility], [address] [place] [address] Zack Sanchez DO [address] [place] [address] [place] [address] 05/14/2025 1:00 PM EST Office Visit [facility] [address] 3[address], [address] [place] [address] Rehan Landaverde MD [address] [place] [address] [email or web address] Scheduled Procedures Name Priority Associated Diagnoses Date/Ti me EMI MONITOR INSERTION IN PRODUCT ASSURANCE ENGINEER Systolic congestive heart failure, unspecified HF [...] , 05/05/2022, 04/18/2016 COVID-19 VACCINE (3 - season) 2025 11/29/2020, 11/29/2020 BLOOD PRESSURE 07/25/2025 [...] 09/28/2026 09/28/2016 SCREENING FOR DIABETES 12/10/2027 12/09/2024, 01/17/ 2025 COLONOSCOPY 02/22/2033 02/22/2023 COLORECTAL CANCER SCREENING 02/22/2033 [...] this topic Medical Devices Implanted Type Area Strategic Marketing Manager Device Identifier Shelf Expiration Date Model / Serial / Lot Plate And Screws In Pelvis Procedures Procedure Name Priority Date/Time Associated Diagnosis Comments CT CHEST LUNG CANCER SCREENING ANNUAL Routine 12/19/2024 10:16 AM EDT Former smoker BASIC METABOLIC PANEL Routine 12/09/2024 9:54 AM EDT Congestive heart failure, unspecified HF chronicity, unspecified heart failure type TSH Routine 11/07/2024 5:31 AM EDT COMPREHENSIVE [...] clinician's provided indication for this examination in [facility]: Lung Cancer Screening - FORMER smoker, quit in past 15 yrs (20+ pk-yrs, age 50-80) - ICD-10 Z87.891 TECHNIQUE: Low dose multidetector CT of the chest was performed without intravenous contrast using tailored dose modulation techniques. COMPARISON: CT CHEST PULMONARY ANGIOGRAM (ACUTE) FINDINGS: Devices/Tubes/Lines: None. Lungs: The central airways [...] clinician's provided indication for this examination in [facility]:Lung Cancer Screening - FORMER smoker, quit in past 15 yrs (20+ pk-yrs,age 50-80) - ICD-10 Z87.891 TECHNIQUE: Low dose multidetector CT of the chest was performed withoutintravenous contrast using tailored dose modulation techniques. COMPARISON: CT CHEST PULMONARY ANGIOGRAM (ACUTE) FINDINGS: Devices/Tubes/Lines: None. Lungs: The central airways [...] the Lung-RADS categories can be found at:[email or web address] us Conner Sneed MD IM CT CHEST Final Re sult * (ABNORMAL) Basic metabolic panel (12/09/2024 9:54 AM EDT) SODIUM 140 133 - 146 mmol/L [facility] CHLORIDE 100 96 - 108 mmol/L [facility] POTASSIUM 4.7 3.3 - 5.1 mmol/L [facility] CO2 33 21 - 35 mmol/L [facility] BUN 25(H) 6 - 19 mg/dL [facility] CREATININE 1.20 0.5 - 1.5 mg/dL [facility] GLUCOSE 105(H) 70 - 99 mg/dL [facility] CALCIUM 9.5 8.4 - 10.3 mg/dL [facility] EGFR 69 >59 mL/min/1.7 3m2 [facility] Comment:Estimated glomerular filtration rate calculated using the CKD-EPI refit equation. ANION GAP 12 10 - 20 mmol/L [facility] Blood 12/09/2024 9:54 AM EDT 12/09/2024 9:58 AM EDT us Helen Allen PA-C LAB BLOOD ORDERABLES Final R esult Performing Organization Address City/[facility]/ZIP Co de Phone Number [address] [address] * TSH (11/07/2024 5:31 AM EDT) TSH 3.65 0.27 - 4.20 uIU/mL [facility] Blood 11/07/2024 5:31 AM EDT 11/07/2024 6:00 AM EDT us Giuliano Adan MD LAB BLOOD ORDERABLES Final Result Performing Organization Address City/[facility]/ZIP Co de Phone Number [address] [address] * (ABNORMAL) Comprehensive metabolic panel (11/05/2024 5:57 AM EDT) SODIUM 139 133 - 146 mmol/L [facility] POTASSIUM 3.6 3.3 - 5.1 mmol/L [facility] CHLORIDE 97 96 - 108 mmol/L [facility] CO2 32 21 - 35 mmol/L [facility] BUN 39(H) 6 - 19 mg/dL [facility] CREATININE 1.90(H) 0.5 - 1.5 mg/dL [facility] GLUCOSE 112(H) 70 - 99 mg/dL [facility] ALBUMIN 3.2(L) 3.9 - 4.8 g/dL [facility] TOTAL PROTEIN 6.2(L) 6.5 - 8.0 g/dL [facility] CALCIUM 8.5 8.4 - 10.3 mg/dL [facility] ALKALINE PHOSPHATASE 91 39 - 117 U/L [facility] TOTAL BILIRUBIN <0.2 0.0 - 1.2 mg/dL [facility] AST 16 0 - 37 U/L [facility] ALT 14 0 - 40 U/L [facility] GLOBULIN 3.0 1 - 4.8 g/dL [facility] EGFR 40(L) >59 mL/min/1.7 3m2 [facility] Comment:Estimated glomerular filtration rate calculated using the CKD-EPI refit equation. ANION GAP 14 10 - 20 mmol/L [facility] Blood 11/05/2024 5:57 AM EDT 11/05/2024 6:34 AM EDT us Anastacia Dietrich MD LAB BLOOD ORDERABLES Final Result [facility] [address] [place] [address] * ENDOSCOPY, COLON (02/22/2023 1:37 PM EDT) Narrative Transcriptions Ioana Armijo MD - 02/22/2023 1:37 PM EDT [facility] Patient Name: Yousif Mcnamara MD:: IOANA ARMIJO MD, Procedure Date: 02/22/2023 1:37 PM Date of : 1965 Age: 57 Admit Type: Inpatient Gender: Male Room: [facility] 04 Referring MD: SHANIKA MONTEMAYOR NP Exam Type: [...] 1:37 PM Procedure Code(s): --- Professional --- 74332, Colonoscopy, flexible; diagnostic, including collection of specimen(s) by brushing or washing, when performed (separateprocedure) --- Technical --- 77055, Colonoscopy, flexible; diagnostic, including collection of specimen(s) by brushing or washing, when performed (separateprocedure) Diagnosis Code(s): --- Professional --- D50.9, Iron deficiency anemia, unspecified --- Technical --- D50.9, Iron deficiency anemia, unspecified CPT copyright 2021 [employer]. All rights reserved. The codes documented in this report are preliminary and upon load test mechanic reviewmay be revised to meet current compliance requirements. Procedure Date: 02/22/2023 1:37:04 PM [address] [place] [address] Shanika Montemayor NP GI PROCEDURE ORDERABLES Final R esult from Last 3 Months or Most Recently Relevant to Health Maintenance Insurance [facility] MEDICARE PART A & B [place] & B [facility] & [place] & B MEDICARE PART A & B [place] [employer]ANCE Advance Directives For more information, please contact: [phone] (9AM - 5PM [facility], Saturday-Saturday) Documents on File Type Date Recorded Patient Toolroom Machinist Expl anation Healthcare Proxy 07/22/2024 3:40 PM [...] Agent (Proxy form on file) Care Teams Pawn Broker Relationship Specialty Start Date End Date Cj Meyer DO [address] [place] [address] PCP - General Internal Medicine 08/08/24 Dennis Temple MBBS [email or web address] Primary Oncologist Hematology and Oncology 04/02/23 Gabriela Barnhart CNP [address] [place] [address] [email or web address] Nurse Practitioner Medical Oncology 01/16/24 Additional Source Comments The information contained in this document represents components of the legal health record. It is not the complete legal health record.[facility]
--- OUTSIDE RECORDS SUMMARY | 2025-03-15 06:13 | XMS_ITS | Encounter Summary ---
Author Organization [facility] Address [address] [facility] [address] [place] [address] Phone Care Team Providers Care Hoop Expander Name Role Phone Marlene Harden NP Primary Care Provider Yue Rodrigez RN Unavailable Jennifer Dash LAMINATED PLASTICS ASSEMBLER AND GLUER Unavailable felisa Yvonne Montana Unavailable Dennis Temple MBBS Unavailable [phone] Gabriela Barnhart STAFF RADIATION THERAPIST Unavailable Cj Meyer DO Primary Care Provider Encounter Details Date Type Department Care Team (Late st Contact Info) Description 06/21/2022 Procedure Pass [facility] Cardiovascular And Interventional Radiology [address] [place] [address] Social History Tobacco Use Types Packs/Day Years [...] Pulmonary, Allergy and Critical Care Medicine [address] [facility] [place] [address] Conner Sneed MD [address] [facility] [address] [place] [address] [email or web address] 03/29/2025 10:15 AM EDT Office Visit [facility] [address] 3rd [facility], [address] [place] [address] Zack Sanchez DO [address] [facility] [address] [place] [address] 05/14/2025 1:00 PM EST Office Visit [address] [facility], [address] [place] [address] Rehan Landaverde MD [address] [place] [address] [email or web address] Scheduled Procedures Name Priority Associated Diagnoses Date/Ti me 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 IN PREFABRICATED HOUSES TRIMMER Systolic congestive heart failure, unspecified HF chronicity [...] documented as of this encounter Care Teams Hoop Expander Relationship Specialty Start Date End Date Marlene Harden NP [address] [place] [address] PCP - General Family Medicine 01/10/22 08/07/24 Cj Meyer DO [address] [place] [address] PCP - General Internal Medicine 08/08/24 Yue Rodrigez, VENKATA [address] [place] [address] [facility] Baseboard Heating Installer 02/21/22 06/09/23 Jennifer Dash LCSW [address] [place] [address] [email or web address] [facility] Social Work 02/01/23 02/11/23 Yvonne Montana [address] [place] [address] [facility] Community Health Worker 02/25/23 06/09/23 Dennis Temple MBBS [address] [place] [address] [email or web address] Primary Oncologist Hematology and Oncology 04/02/23 Gabriela Barnhart CNP [address] [place] [address] Nurse Practitioner Medical Oncology 01/16/24 documented as of this encounter Additional Source Comments The information contained in this document represents components of the legal health record. It is not the complete legal health record.[facility]
--- OUTSIDE RECORDS SUMMARY | 2025-03-15 06:13 | XMS_ITS | Encounter Summary ---
Author Organization [facility] Address [address] [place] [address] Phone Care Team Providers Care Energy Conservation Representative Name Role Phone WindyAlexanderstu Mccann MBBS Unavailable [phone] Pack, Gabriela BARREL ENDSHAKE ADJUSTER Unavailable Cj Meyer DO Primary Care Provider [phone] Encounter Details Date Type Department Care Team (Late st Contact Info) Description 08/08/2024 Procedure Pass [facility], Ct Scan [facility] [address] [place] [address] Social History Tobacco Use Types Packs/Day Years [...] 3:25 PM Maria E Timmons RN * [place] Suicide Severity Rating Scale (Screener/Recent Self-Report) Question [...] 03/16/2025 9:00 AM EDT Office Visit [facility] Pulmonary, Allergy and Critical Care Medicine [address] [place] [address] Conner Sneed MD [address] [place] [address] [email or web address] 03/29/2025 10:15 AM EDT Office Visit [facility] [address] [place] [address], [address] [place] [address] Zack Sanchez DO [address] [place] [address] 05/14/2025 1:00 PM EST Office Visit [facility] [address], [address] [place] [address] Rehan Landaverde MD [address] [place] [address] Scheduled Procedures Name Priority Associated Diagnoses Date/Ti me 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 IN STEAM TABLE ASSOCIATE Systolic congestive heart failure, unspecified HF chronicity [...] documented as of this encounter Care Teams Energy Conservation Representative Relationship Specialty Start Date End Date Cj Meyer DO [address] [place] [address] PCP - General Internal Medicine 08/08/24 Dennis Temple MBBS [email or web address] Primary Oncologist Hematology and Oncology 04/02/23 Gabriela Barnhart CNP [address] [place] [address] [email or web address] Nurse Practitioner Medical Oncology 01/16/24 documented as of this encounter Additional Source Comments The information contained in this document represents components of the legal health record. It is not the complete legal health record.[facility]
--- OUTSIDE RECORDS SUMMARY | 2025-03-15 06:13 | XMS_ITS | Encounter Summary ---
Author Organization [facility] Address [address] [place] [address] Phone Care Team Providers Care Equal Employment Opportunity Officer Name Role Phone Temple, Ahmastu Mccann MBBS Unavailable [phone] Pack, Gabriela BUILDING SERVICES SUPERVISOR Unavailable Cj Meyer DO Primary Care Provider [phone] Encounter Details Date Type Department Care Team (Late st Contact Info) Description 11/07/2024 Procedure Pass [facility], Ct Scan - [address] [address] Social History Tobacco Use Types Packs/Day Years [...] Pulmonary, Allergy and Critical Care Medicine 10 [facility] [place] [address] Conner Sneed MD [address] [address] [email or web address] 03/29/2025 10:15 AM EDT Office Visit [facility] [address] 3rd Floor, [address] [place] [address] Zack Sanchez DO 22 [facility] [address] [place] [address] 05/14/2025 1:00 PM EST Office Visit [facility] [address] 3rd Floor, [address] [place] [address] Rehan Landaverde MD [address] [place] [address] [email or web address] Scheduled Procedures Name Priority Associated Diagnoses Date/Ti me 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 IN CITY DISPATCH SUPERVISOR Systolic congestive heart failure, unspecified HF chronicity documented as of this encounter Visit Diagnoses Not on filedocumented in this encounter Additional Health Concerns Assessment Noted Time PHQ-2 Depression Total Score: 2 03/28/20 22 11:32 AM EDT documented as of this encounter Care Teams Equal Employment Opportunity Officer Relationship Specialty Start Date End Date Cj Meyer DO [address] [place] [address] PCP - General Internal Medicine 08/08/24 Dennis Temple MBBS [email or web address] Primary Oncologist Hematology and Oncology 04/02/23 Gabriela Barnhart CNP [address] [place] [address] [email or web address] Nurse Practitioner Medical Oncology 01/16/24 documented as of this encounter Additional Source Comments The information contained in this document represents components of the legal health record. It is not the complete legal health record.[facility]
--- OUTSIDE RECORDS SUMMARY | 2025-03-15 06:13 | XMS_ITS | Encounter Summary ---
Author Organization [facility] Address [address] [place] [address] Phone Care Team Providers Care Fiberglass Technician Name Role Phone Dereck Marlene Delvalle AUTOMOBILE INSPECTOR Primary Care Provider Dennis Temple MBBS Unavailable [phone] Gabriela Barnhart FIBER OPTICS TECHNICIAN Unavailable Cj Meyer DO Primary Care Provider [phone] Encounter Details Date Type Department Care Team (Late st Contact Info) Description 07/18/2024 Procedure Pass [facility] Emergency Department, [facility] [address] [place] [address] Social History Tobacco Use Types [...] Pulmonary, Allergy and Critical Care Medicine 10 [facility] [place] [address] Conner Sneed MD [address] [address] [email or web address] 03/29/2025 10:15 AM EDT Office Visit [facility] [address] 3rd [facility], [address] [place] [address] Zack Sanchez DO 22 [facility] [address] [place] [address] 05/14/2025 1:00 PM EST Office Visit [facility] [address] 3rd [facility], [address] [place] [address] Rehan Landaverde MD [address] [place] [address] Scheduled Procedures Name Priority Associated Diagnoses Date/Ti co 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 IN EYE SPECIALIST Systolic congestive heart failure, unspecified HF [...] documented as of this encounter Care Teams Fiberglass Technician Relationship Specialty Start Date End Date Marlene Harden NP 70 [place] [address] PCP - General Family Medicine 01/10/22 08/07/24 Cj Meyer DO 70 [place] [address] PCP - General Internal Medicine 08/08/24 Dennis Temple MBBS [address] [place] [address] [email or web address] Primary Oncologist Hematology and Oncology 04/02/23 Gabriela Barnhart CNP [address] [place] [address] [email or web address] Nurse Practitioner Medical Oncology 01/16/24 documented as of this encounter Additional Source Comments The information contained in this document represents components of the legal health record. It is not the complete legal health record.[facility]
--- OUTSIDE RECORDS SUMMARY | 2025-03-15 06:13 | XMS_ITS | Encounter Summary ---
Author Organization [facility] Address [address] [facility] [address] [place] [address] Phone Care Team Providers Care Stone Banker Name Role Phone Temple, Ahmastu Mccann MBBS Unavailable PackPolaen REWARDS CONSULTANT Unavailable Cj Meyer DO Primary Care Provider [phone] Reason for Visit * Reason Comments Medication Refill Encounter Details Date Type Department Care Team (Late st Contact Info) Description 03/11/2025 Refill [facility] Pulmonary, Allergy and Critical Care Medicine 10 [facility] [place] [address] Conner Sneed MD [address] [address] Medication Refill Social History Tobacco Use Types Packs/Day Years [...] AM EDT documented as of this encounter Progress Notes * Cindy Tovar 03/11/2025 7:48 AM EDT At least one Rx below has no protocol and needs review. Rx Care Gap Status - Instructions for Clinical Staff (prescriber discretion applies): > Mismatch review guide > N/a - No action needed Visit Info Last visit: 12/09/2024 Conner Sneed MD - Pulmonology [facility] PULM/ALLGY 10 MAIN > Requested f/u: Return in about 6 weeks (around 01/20/2025). Upcoming visit: 03/16/2025 Conner Sneed MD - Pulmonology [facility] PULM/ALLGY 10 MAIN ACTIONS TAKEN BY Cindy Tovar - Criteria met. Rx(s) without protocol Renewal is at prescriber discretion. - [email or web address] documented in this encounter Plan of Treatment Upcoming Encounters Date Type Department Care Team (Late st Contact Info) Description 03/16/2025 9:00 AM EDT Office Visit [facility] Pulmonary, Allergy and Critical Care Medicine [address] [place] [address] Conner Sneed MD [address] [place] [address] [email or web address] 03/29/2025 10:15 AM EDT Office Visit [facility] [address] [place] [address], [address] [address] Zack Sanchez DO [address] [place] [address] 05/14/2025 1:00 PM EST Office Visit [facility] [address], [address] [address] Rehan Landaverde MD [address] [place] [address] Scheduled Procedures Name Priority Associated Diagnoses Date/Ti me 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 IN ANAESTHESIOLOGIST Systolic congestive heart failure, unspecified HF chronicity documented as of this encounter Visit Diagnoses Diagnosis Pulmonary nodules- Primary Other diseases of lung, not elsewhere classified Chronic respiratory failure with hypoxia documented in this encounter Additional Health Concerns Assessment Noted Time PHQ-2 Depression Total Score: 2 03/28/20 22 11:32 AM EDT documented as of this encounter Care Teams Stone Banker Relationship Specialty Start Date End Date Cj Meyer DO [address] [place] [address] PCP - General Internal Medicine 08/08/24 Dennis Temple MBBS [email or web address] Primary Oncologist Hematology and Oncology 04/02/23 Gabriela Barnhart CNP [address] [place] [address] [email or web address] Nurse Practitioner Medical Oncology 01/16/24 documented as of this encounter Additional Source Comments The information contained in this document represents components of the legal health record. It is not the complete legal health record.[facility]
[2025-03-15 06:56] LABS: Anion Gap 12 (12-20); Blood Urea Nitrogen 22 mg/dL (9-16); Calcium 9.1 mg/dL (8.4-10.2); Carbon Dioxide 31 mmol/L (22-29); Chloride 105 mmol/L (96-108); Estimated Glomerular Filt Rate 53; Potassium 4.8 mmol/L (3.3-5.1); Sodium 143 mmol/L (135-145)
[2025-03-15 07:03] LABS: Hematocrit 31.7 % (42.0-52.0); Hemoglobin 10.3 g/dl (14.0-18.0); Imm Gran Abs Auto 0.32 X10*3/uL (0.00-0.03); Imm Gran Pct Auto 2.9 % (0.0-0.4); Lymphocytes Absolute Auto 2.0 X10*3/uL (1.2-4.9); Mean Corpuscular HGB Conc 32.5 g/dl (31.0-36.0); Mean Corpuscular Hemoglobin 26.1 pg (27.0-33.0); Mean Corpuscular Volume 80.5 fL (80.0-98.0); NRBC Abs Auto 0.000 X10*3/uL (0.0-0.012); NRBC Pct Auto 0.0 /100WBC (0.0-0.2); Platelet Count 302 X10*3/uL (160-400); Red Blood Count 3.94 X10*6/uL (4.60-5.80); White Blood Count 10.9 X10*3/uL (4.8-10.8)
== END 2025-03-15 06:08 | disposition home or self-care (01) ==
LOC: HO.MMNH1L 06:07
PROVIDERS: Visit Provider Family Medicine
DX: J96.21 Acute and chronic respiratory failure with hypoxia (principal); J44.1 Chronic obstructive pulmonary disease with (acute) exacerbation; E46 Unspecified protein-calorie malnutrition
CPT/HCPCS: 36415; 80048; 85025

== ENCOUNTER 2025-03-22 05:41 | Outpatient (REF) | payer MEDICARE, SELFPAY ==
[2025-03-22 05:39] LABS: MANUAL DIFF FLAG NO
--- OUTSIDE RECORDS SUMMARY | 2025-03-22 05:43 | XMS_ITS | Encounter Summary ---
Author Organization [facility] Address [address] [facility] [address] [place] [address] Phone Care Team Providers Care Quantitative Analyst Developer Name Role Phone Marlene Harden NP Primary Care Provider Yue Rodrigez RN Unavailable Jennifer Dash SUPERVISOR INSPECTING Unavailable felisa Yvonne Montana Unavailable Dennis Temple MBBS Unavailable [phone] Gabriela Barnhart DOCK ASSOCIATE Unavailable Cj Meyer DO Primary Care Provider Encounter Details Date Type Department Care Team (Late st Contact Info) Description 05/29/2022 Procedure Pass [facility] Cardiovascular And Interventional Radiology 30 [place] [address] Social History Tobacco Use Types Packs/Day Years [...] Care Team (Late st Contact Info) Description 03/29/2025 10:15 AM EDT Office Visit [facility] [address] 3rd Floor, [address] [place] [address] Zack Sanchez DO 22 [facility] [address] [place] [address] 05/14/2025 1:00 PM EST Office Visit [facility] [address] 3rd Floor, [address] [place] [address] Rehan Landaverde MD [address] [place] [address] 09/13/2025 9:30 AM EDT Office Visit [facility] Pulmonary, Allergy and Critical Care Medicine 10 [place] [address] Conner Sneed MD [address] [place] [address] [email or web address] Scheduled Procedures Name Priority Associated Diagnoses Date/Ti me 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 IN BIG DATA SOLUTIONS ARCHITECT Systolic congestive heart failure, unspecified HF [...] documented as of this encounter Care Teams Quantitative Analyst Developer Relationship Specialty Start Date End Date Marlene Harden NP 70 [place] [address] PCP - General Family Medicine 01/10/22 08/07/24 Cj Meyer DO 70 [place] [address] PCP - General Internal Medicine 08/08/24 Yue Rodrigez, VENKATA [address] [place] [address] [facility] Energy Conservation Engineer 02/21/22 06/09/23 Jennifer Dash LCSW [address] [place] [address] [email or web address] [facility] Social Work 02/01/23 02/11/23 Yvonne Montana [address] [place] [address] [facility] Community Health Worker 02/25/23 06/09/23 Dennis Temple MBBS [address] [place] [address] [email or web address] Primary Oncologist Hematology and Oncology 04/02/23 Gabriela Barnhart CNP [address] [place] [address] Nurse Practitioner Medical Oncology 01/16/24 documented as of this encounter Additional Source Comments The information contained in this document represents components of the legal health record. It is not the complete legal health record.[facility]
--- OUTSIDE RECORDS SUMMARY | 2025-03-22 05:43 | XMS_ITS | Encounter Summary ---
Author Organization [facility] Address [address] [facility] [address] [place] [address] Phone Care Team Providers Care School Traffic Guard Name Role Phone Marlene Harden NP Primary Care Provider [phone] Yue Rodrigez RN Unavailable Jennifer Dash TOOLER Unavailable [email or web address] Yvonne Montana Unavailable Dennis Temple MBBS Unavailable Gabriela Barnhart CNA Unavailable Cj Meyer DO Primary Care Provider [phone] Reason for Referral * - Closed Specialty Diagnoses / Procedures Referred By Contflorentin t Referred To Contact Diagnoses Permanent atrial fibrillation Procedures MCT (Mobile Cardiac Telemetry) Zack Sanchez DO Phone: tel: fax: mailto: Referral ID Status Reason Start Date Expiration Date Visits Re quested Visits Authorized [id number] Closed 04/11/2022 04/11/2023 1 1 Encounter Details Date Type Department Care Team (Latest Contact Info) Description 04/11/2022 Ancillary Orders [facility] 22 [facility] 3rd Floor, [address] [place] [address] Zack Sanchez DO [address] [address] [email or web address] Permanent atrial fibrillation Social History [...] Description 03/29/2025 10:15 AM EDT Office Visit [facility] [address] [place] [address], [address] [address] Zack Sanchez DO [address] [address] 05/14/2025 1:00 PM EST Office Visit [facility] [address], [address] [address] Rehan Landaverde MD [address] [place] [address] 09/13/2025 9:30 AM EDT Office Visit [facility] Pulmonary, Allergy and Critical Care Medicine 10 [place] [address] Conner Sneed MD [address] [place] [address] [email or web address] Scheduled Orders Name Type Priority Associated Diagnoses Orde r Schedule MCT (Mobile Cardiac Telemetry) Cardiac Monitors Routine Permanent atrial fibrillation Expected: 02/27/2022, Expires: 05/23/2022 Scheduled Procedures Name Priority Associated Diagnoses Date/Ti me 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 IN FORENSIC SCIENTIST Systolic congestive heart failure, unspecified HF chronicity [...] documented as of this encounter Care Teams School Traffic Guard Relationship Specialty Start Date End Date Marlene Harden NP 70 [place] [address] PCP - General Family Medicine 01/10/22 08/07/24 Cj Meyer DO 70 [place] [address] PCP - General Internal Medicine 08/08/24 Yue Rodrigez, RN [address] [place] [address] [facility] Supervisor 02/21/22 06/09/23 Jennifer Dash LCSW [address] [place] [address] [facility] Social [facility] 02/01/23 02/11/23 Yvonne Montana [address] [place] [address] [email or web address] Community Health Worker 02/25/23 06/09/23 Dennis Temple MBBS 10 [place] [address] [email or web address] Primary Oncologist Hematology and Oncology 04/02/23 Gabriela Barnhart CNP [address] [place] [address] [email or web address] Nurse Practitioner Medical Oncology 01/16/24 documented as of this encounter Additional Source Comments The information contained in this document represents components of the legal health record. It is not the complete legal health record.[facility]
--- OUTSIDE RECORDS SUMMARY | 2025-03-22 05:43 | XMS_ITS | Encounter Summary ---
Author Organization [facility] Address [address] [place] [address] Phone Care Team Providers Care Casino Assistant Manager Name Role Phone Temple, Ahmastu Mccann MBBS Unavailable [phone] Pack, Gabriela FINISHING RANGE FEEDER Unavailable Cj Meyer DO Primary Care Provider Encounter Details Date Type Department Care Team (Late st Contact Info) Description 11/07/2024 Procedure Pass [facility], Ct Scan - [address] [address] Social History Tobacco Use Types Packs/Day Years [...] Description 03/29/2025 10:15 AM EDT Office Visit [facility] [address] [place] [address] 3rd Floor, [address] [place] [address] Zack Sanchez, DO 22 [facility] [address] [place] [address] 05/14/2025 1:00 PM EST Office Visit [facility] [address] [place] [address] 3rd Floor, [address] [place] [address] Rehan Landaverde MD 50 [place] [address] 09/13/2025 9:30 AM EDT Office Visit [facility] Pulmonary, Allergy and Critical Care Medicine 10 [place] [address] Conner Sneed MD 10 [facility] 2nd [place] [address] [email or web address] Scheduled Procedures Name Priority Associated Diagnoses Date/Ti me 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 IN COLLAR SHAPER OPERATOR Systolic congestive heart failure, unspecified HF chronicity documented as of this encounter Visit Diagnoses Not on filedocumented in this encounter Additional Health Concerns Assessment Noted Time PHQ-2 Depression Total Score: 2 03/28/20 22 11:32 AM EDT documented as of this encounter Care Teams Casino Assistant Manager Relationship Specialty Start Date End Date Cj Meyer DO [address] [place] [address] PCP - General Internal Medicine 08/08/24 Dennis Temple MBBS [email or web address] Primary Oncologist Hematology and Oncology 04/02/23 Gabriela Barnhart CNP 30 [place] [address] [email or web address] Nurse Practitioner Medical Oncology 01/16/24 documented as of this encounter Additional Source Comments The information contained in this document represents components of the legal health record. It is not the complete legal health record.[facility]
--- OUTSIDE RECORDS SUMMARY | 2025-03-22 05:43 | XMS_ITS | Encounter Summary ---
Author Organization [facility] Address [address] [place] [address] Phone Care Team Providers Care Taker Off Braker Machine Name Role Phone WindyAlexanderstu Mccann MBBS Unavailable [phone] Pack, Gabriela PLAIN CLOTHES POLICE OFFICER Unavailable Cj Meyer DO Primary Care Provider [phone] Encounter Details Date Type Department Care Team (Late st Contact Info) Description 08/08/2024 Procedure Pass [facility], Ct Scan - [facility] 30 [place] [address] Social History Tobacco Use Types Packs/Day Years [...] 3:25 PM Maria E Timmons RN * [place] Suicide Severity Rating Scale (Screener/Recent Self-Report) Question [...] Upcoming Encounters Date Type Department Care Team ([facility] st Contact Info) Description 03/29/2025 10:15 AM EDT Office Visit [facility] [address], [address] [place] [address] Zack Sanchez DO [address] [place] [address] [place] [address] 05/14/2025 1:00 PM EST Office Visit [address], [address] [place] [address] Rehan Landaverde MD [address] [place] [address] 09/13/2025 9:30 AM EDT Office Visit [facility] Pulmonary, Allergy and Critical Care Medicine 10 [place] [address] Conner Sneed MD [address] [place] [address] [email or web address] Scheduled Procedures Name Priority Associated Diagnoses Date/Ti me 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 IN MACHINE VENEER REPAIRER Systolic congestive heart failure, unspecified HF chronicity [...] documented as of this encounter Care Teams Taker Off Braker Machine Relationship Specialty Start Date End Date Cj Meyer DO [address] [place] [address] PCP - General Internal Medicine 08/08/24 Dennis Temple MBBS [email or web address] Primary Oncologist Hematology and Oncology 04/02/23 Gabriela Barnhart CNP [address] [place] [address] [email or web address] Nurse Practitioner Medical Oncology 01/16/24 documented as of this encounter Additional Source Comments The information contained in this document represents components of the legal health record. It is not the complete legal health record.[facility]
--- OUTSIDE RECORDS SUMMARY | 2025-03-22 05:43 | XMS_ITS | Encounter Summary ---
Author Organization [facility] Address [address] [place] [address] Phone Care Team Providers Care Rnp Name Role Phone Dereck Marlene Mook ORDNANCE TRUCK INSTALLATION MECHANIC Primary Care Provider Dennis Temple MBBS Unavailable [phone] Gabriela Barnhart ART PREPARATOR Unavailable Cj Meyer DO Primary Care Provider [phone] Encounter Details Date Type Department Care Team (Late st Contact Info) Description 07/18/2024 Procedure Pass [facility], [address] [address] Social History Tobacco Use Types Packs/Day Years [...] Description 03/29/2025 10:15 AM EDT Office Visit [facility] [address] [place] [address] 3rd [facility], [address] [place] [address] Zack Sanchez, DO 22 [facility] [address] [place] [address] 05/14/2025 1:00 PM EST Office Visit [facility] 22 [facility] 3rd Floor, [address] [place] [address] Rehan Landaverde MD [address] [place] [address] 09/13/2025 9:30 AM EDT Office Visit [facility] Pulmonary, Allergy and Critical Care Medicine 10 [place] [address] Conner Sneed MD [address] [place] [address] 2nd [place] [address] [email or web address] Scheduled Procedures Name Priority Associated Diagnoses Date/Ti me 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 IN END FRAZER Systolic congestive heart failure, unspecified HF chronicity [...] documented as of this encounter Care Teams Rnp Relationship Specialty Start Date End Date Marlene Harden NP 70 [place] [address] PCP - General Family Medicine 01/10/22 08/07/24 Cj Meyer DO 70 [place] [address] PCP - General Internal Medicine 08/08/24 Dennis Temple MBBS [address] [place] [address] [email or web address] Primary Oncologist Hematology and Oncology 04/02/23 Gabriela Barnhart CNP [address] [place] [address] [email or web address] Nurse Practitioner Medical Oncology 01/16/24 documented as of this encounter Additional Source Comments The information contained in this document represents components of the legal health record. It is not the complete legal health record.[facility]
--- OUTSIDE RECORDS SUMMARY | 2025-03-22 05:43 | XMS_ITS | Clinical Summary ---
Author Organization [facility] Address [address] [place] [address] Care Team Providers Care Immigration Inspector Name Role Phone Marlene Harden NP Primary Care Provider [phone] Social History Tobacco Use Types Packs/Day Years [...] age to complete this topic Insurance [facility] Plan Care Teams Immigration Inspector Relationship Specialty Start Date End Date Marlene Harden NP [address] [place] [address] PCP - General Nurse Practitioner 03/05/23
--- OUTSIDE RECORDS SUMMARY | 2025-03-22 05:43 | XMS_ITS | Encounter Summary ---
Author Organization [facility] Address [address] [facility] [address] [place] [address] Phone Care Team Providers Care Night Supervisor Name Role Phone Marlene Harden NP Primary Care Provider Yue Rodrigez RN Unavailable Jennifer Dash ANIMAL NUTRITION CONSULTANT Unavailable felisa Yvonne Montana Unavailable Dennis Temple MBBS Unavailable [phone] Gabriela Barnhart DISTRIBUTED ENERGY SYSTEMS CONSULTANT Unavailable Cj Meyer DO Primary Care Provider [phone] Encounter Details Date Type Department Care Team (Late st Contact Info) Description 06/21/2022 Procedure Pass [facility] Cardiovascular And Interventional Radiology [address] [place] [address] Social History Tobacco Use Types Packs/Day Years [...] Description 03/29/2025 10:15 AM EDT Office Visit [facility] [address] 3rd Floor, [address] [place] [address] Zack Sanchez DO [address] [facility] [address] [place] [address] 05/14/2025 1:00 PM EST Office Visit [facility] [address] 3rd Floor, [address] [place] [address] Rehan Landaverde MD [address] [place] [address] 09/13/2025 9:30 AM EDT Office Visit [facility] All[facility] Critical [facility] 10 [place] [address] Conner Sneed MD [address] [place] [address] [email or web address] [email or web address] g Scheduled Procedures Name Priority Associated Diagnoses Date/Ti me 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 IN AERONAUTICAL ENGINEERING TECHNOLOGIST Systolic congestive heart failure, unspecified HF chronicity [...] documented as of this encounter Care Teams Night Supervisor Relationship Specialty Start Date End Date Marlene Harden NP 70 [place] [address] PCP - General Family Medicine 01/10/22 08/07/24 Cj Meyer DO 70 [place] [address] PCP - General Internal Medicine 08/08/24 Yue Rodrigez, VENKATA [address] [place] [address] [facility] Guitar Repair Technician 02/21/22 06/09/23 Jennifer Dash LCSW [address] [place] [address] [email or web address] [facility] Social Work 02/01/23 02/11/23 Yvonne Montana [address] [place] [address] [facility] Community Health Worker 02/25/23 06/09/23 Dennis Temple MBBS [address] [place] [address] [email or web address] Primary Oncologist Hematology and Oncology 04/02/23 Gabriela Barnhart CNP [address] [place] [address] Nurse Practitioner Medical Oncology 01/16/24 documented as of this encounter Additional Source Comments The information contained in this document represents components of the legal health record. It is not the complete legal health record.[facility]
--- OUTSIDE RECORDS SUMMARY | 2025-03-22 05:43 | XMS_ITS | Encounter Summary ---
Author Organization [facility] Address [address] [place] [address] Phone Care Team Providers Care Qualified Craft Worker Electrician Name Role Phone Dereck Marlene Delvalle NEWS CONTENT SPECIALIST Primary Care Provider Dennis Temple MBBS Unavailable [phone] Gabriela Barnhart RETAIL SALES ASSOCIATE Unavailable Cj Meyer DO Primary Care Provider [phone] Encounter Details Date Type Department Care Team (Late st Contact Info) Description 07/18/2024 Procedure Pass [facility] Emergency Department, [facility] [address] [place] [address] Social History Tobacco Use Types [...] Description 03/29/2025 10:15 AM EDT Office Visit [facility] [address] [place] [address] 3rd [facility], [address] [place] [address] Zack Sanchez, DO [address] [place] [address] [address] [place] [address] 05/14/2025 1:00 PM EST Office Visit [facility] [address] [facility] 3rd Floor, [address] [place] [address] Rehan Landaverde MD [address] [place] [address] 09/13/2025 9:30 AM EDT Office Visit [facility] 10 [place] [address] Conner Sneed MD [address] [place] [address] 2[address] [place] [address] [email or web address] Scheduled Procedures Name Priority Associated Diagnoses Date/Ti me 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 IN COMPLAINT COORDINATOR Systolic congestive heart failure, unspecified HF chronicity [...] documented as of this encounter Care Teams Qualified Craft Worker Electrician Relationship Specialty Start Date End Date Marlene Harden NP 70 [place] [address] PCP - General Family Medicine 01/10/22 08/07/24 Cj Meyer DO 70 [place] [address] PCP - General Internal Medicine 08/08/24 Dennis Temple MBBS [address] [place] [address] [email or web address] .[email or web address] Primary Oncologist Hematology and Oncology 04/02/23 Gabriela Barnhart CNP [address] [place] [address] [email or web address] Nurse Practitioner Medical Oncology 01/16/24 documented as of this encounter Additional Source Comments The information contained in this document represents components of the legal health record. It is not the complete legal health record.[facility]
--- OUTSIDE RECORDS SUMMARY | 2025-03-22 05:43 | XMS_ITS | Encounter Summary ---
Author Organization [facility] Address [address] [facility] [address] [place] [address] Phone Care Team Providers Care Almond Grinder Name Role Phone Marlene Harden HELMET HAT BRIM CUTTER Primary Care Provider Yue Rodrigez RN Unavailable Jennifer Dash CREDIT ADJUSTER Unavailable felisa Yvonne Montana Unavailable Dennis Temple MBBS Unavailable [phone] Gabriela Barnhart SORORITY MOTHER Unavailable Cj Meyer DO Primary Care Provider [phone] Encounter Details Date Type Department Care Team (Late st Contact Info) Description 09/03/2022 Procedure Pass [facility], Ct Scan - [address] [address] Social History Tobacco Use Types Packs/Day Years [...] Upcoming Encounters Date Type Department Care Team ([facility] st Contact Info) Description 03/29/2025 10:15 AM EDT Office Visit [facility] [address] [facility] 3rd Floor, [address] [place] [address] Zack Sanchez DO 22 [facility] [address] [place] [address] 05/14/2025 1:00 PM EST Office Visit [facility] [address] 3rd [facility], [address] [place] [address] Rehan Landaverde MD [address] [place] [address] 09/13/2025 9:30 AM EDT Office Visit [facility] 10 [place] [address] Conner Sneed MD [address] [place] [address] [email or web address] Scheduled Procedures Name Priority Associated Diagnoses Date/Ti me 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 IN COLD PATCHER Systolic congestive heart failure, unspecified HF chronicity [...] documented as of this encounter Care Teams Almond Grinder Relationship Specialty Start Date End Date Marlene Harden NP 70 [place] [address] PCP - General Family Medicine 01/10/22 08/07/24 Cj Meyer DO 70 [place] [address] PCP - General Internal Medicine 08/08/24 Yue Rodrigez RN [address] [place] [address] [facility] Bruise Trimmer 02/21/22 06/09/23 Jennifer Dash LCSW [address] [place] [address] [facility] Social Work 02/01/23 02/11/23 Yvonne Montana [address] [place] [address] [facility] Community Health Worker 02/25/23 06/09/23 Dennis Temple MBBS [address] [place] [address] [email or web address] Primary Oncologist Hematology and Oncology 04/02/23 Gabriela Barnhart CNP [address] [place] [address] Nurse Practitioner Medical Oncology 01/16/24 documented as of this encounter Additional Source Comments The information contained in this document represents components of the legal health record. It is not the complete legal health record.[facility]
--- OUTSIDE RECORDS SUMMARY | 2025-03-22 05:43 | XMS_ITS | Encounter Summary ---
Author Organization [facility] Address [address] [place] [address] Phone Care Team Providers Care Policyholder Information Clerk Name Role Phone Dereck Marlene Mook FLAME DEGREASER Primary Care Provider [phone] Dennis Temple MBBS Unavailable Gabriela Barnhart HIP HOP DANCE INSTRUCTOR Unavailable Cj Meyer DO Primary Care Provider Encounter Details Date Type Department Care Team (Late st Contact Info) Description 07/18/2024 Procedure Pass [facility], Ct Scan - [address] [address] Social History Tobacco Use Types Packs/Day Years [...] Description 03/29/2025 10:15 AM EDT Office Visit [facility] [address] [place] [address] [facility], [address] [place] [address] Zack Sanchez, DO [address] [facility] [address] [place] [address] 05/14/2025 1:00 PM EST Office Visit [facility] 22 [facility] 3rd Floor, [address] [place] [address] Rehan Landaverde MD [address] [place] [address] 09/13/2025 9:30 AM EDT Office Visit [facility] 10 [place] [address] Conner Sneed MD [address] [place] [address] 2[address] [place] [address] [email or web address] Scheduled Procedures Name Priority Associated Diagnoses Date/Ti me 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 IN SAFE AND VAULT INSTALLER Systolic congestive heart failure, unspecified HF [...] documented as of this encounter Care Teams Policyholder Information Clerk Relationship Specialty Start Date End Date Marlene Harden NP 70 [place] [address] PCP - General Family Medicine 01/10/22 08/07/24 Cj Meyer DO 70 [place] [address] PCP - General Internal Medicine 08/08/24 Dennis Temple MBBS [address] [place] [address] [email or web address] Primary Oncologist Hematology and Oncology 04/02/23 Gabriela Barnhart CNP [address] [place] [address] [email or web address] Nurse Practitioner Medical Oncology 01/16/24 documented as of this encounter Additional Source Comments The information contained in this document represents components of the legal health record. It is not the complete legal health record.[facility]
--- OUTSIDE RECORDS SUMMARY | 2025-03-22 05:43 | XMS_ITS | Encounter Summary ---
Author Organization [facility] Address [address] [place] [address] Phone Care Team Providers Care Motion Designer Name Role Phone Marlene Harden NP Primary Care Provider [phone] Yue Rodrigez RN Unavailable Jennifer Dash MEDICAL ECONOMICS CONSULTANT Unavailable felisa Yvonne Montana Unavailable Dennis Temple MBBS Unavailable [phone] Gabriela Barnhart [facility] Unavailable Cj Meyer DO Primary Care Provider [phone] Encounter Details Date Type Department Care Team (Late st Contact Info) Description 03/15/2022 Procedure Pass [facility], Ct Scan - [address] [address] Social History Tobacco Use Types Packs/Day Years [...] Description 03/29/2025 10:15 AM EDT Office Visit [facility] [address] [place] [address] Dr 3rd Floor, [address] [place] [address] Zack Sanchez DO 22 [facility] [address] [place] [address] 05/14/2025 1:00 PM EST Office Visit [facility] [address] 3rd Floor, [address] [place] [address] Rehan Landaverde MD [address] [place] [address] 09/13/2025 9:30 AM EDT Office Visit [facility] 10 [place] [address] Conner Sneed MD [address] [place] [address] [email or web address] Scheduled Procedures Name Priority Associated Diagnoses Date/Ti me 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 IN NURSE COMPANION Systolic congestive heart failure, unspecified HF chronicity [...] documented as of this encounter Care Teams Motion Designer Relationship Specialty Start Date End Date Marlene Harden NP 70 [place] [address] PCP - General Family Medicine 01/10/22 08/07/24 Cj Meyer DO 70 [place] [address] PCP - General Internal Medicine 08/08/24 Yue Rodrigez RN [address] [place] [address] [facility] Sql Bi Developer 02/21/22 06/09/23 Jennifer Dash LCSW [address] [place] [address] [email or web address] [facility] Social Work 02/01/23 02/11/23 Yvonne Montana [address] [place] [address] [email or web address] [facility] Community Health Worker 02/25/23 06/09/23 Dennis Temple MBBS [address] [place] [address] [email or web address] Primary Oncologist Hematology and Oncology 04/02/23 Gabriela Barnhart CNP 30 [place] [address] Nurse Practitioner Medical Oncology 01/16/24 documented as of this encounter Additional Source Comments The information contained in this document represents components of the legal health record. It is not the complete legal health record.[facility]
--- OUTSIDE RECORDS SUMMARY | 2025-03-22 05:43 | XMS_ITS | Encounter Summary ---
Author Organization [facility] Address [address] [place] [address] Phone Care Team Providers Care Carpenter Name Role Phone Dereck Marlene Mook SPEECH LANGUAGE PATHOLOGIST TRAVEL Primary Care Provider [phone] Dennis Temple MBBS Unavailable Gabriela Barnhart INSPECTOR MECHANICAL Unavailable Cj Meyer DO Primary Care Provider Encounter Details Date Type Department Care Team (Late st Contact Info) Description 10/03/2023 Procedure Pass , Ct Scan - [address] [address] Social History Tobacco Use Types Packs/Day Years [...] Description 03/29/2025 10:15 AM EDT Office Visit [facility] [address], [address] [address] Zack Sanchez DO [address] [place] [address] 05/14/2025 1:00 PM EST Office Visit [facility] [address], [address] [address] Rehan Landaverde MD [address] [place] [address] 09/13/2025 9:30 AM EDT Office Visit [facility] Allergy [facility] 10 [place] [address] Conner Sneed MD [address] [place] [address] [email or web address] Scheduled Procedures Name Priority Associated Diagnoses Date/Ti me 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 IN AS400 PROGRAMMER Systolic congestive heart failure, unspecified HF chronicity [...] documented as of this encounter Care Teams Carpenter Relationship Specialty Start Date End Date Marlene Harden NP 70 [place] [address] PCP - General Family Medicine 01/10/22 08/07/24 Cj Meyer DO 70 [place] [address] PCP - General Internal Medicine 08/08/24 Dennis Temple MBBS 70 [place] [address] [email or web address] Primary Oncologist Hematology and Oncology 04/02/23 Gabriela Barnhart CNP [address] [place] [address] [email or web address] Nurse Practitioner Medical Oncology 01/16/24 documented as of this encounter Additional Source Comments The information contained in this document represents components of the legal health record. It is not the complete legal health record.[facility]
--- OUTSIDE RECORDS SUMMARY | 2025-03-22 05:43 | XMS_ITS | Encounter Summary ---
Author Organization [facility] Address [address] [place] [address] Phone Care Team Providers Care Engineering Inspection Assistant Name Role Phone DereckMarlene Mook BANK CONSULTANT Primary Care Provider Dennis Temple MBBS Unavailable [phone] Gabriela Barnhart PROTECTION CHIEF INDUSTRIAL PLANT Unavailable Cj Meyer DO Primary Care Provider [phone] Encounter Details Date Type Department Care Team (Late st Contact Info) Description 07/17/2024 Procedure Pass [facility] [address] [place] [address] Social History Tobacco Use Types Packs/Day Years [...] 07/17/2024 1:48 PM Sofy Harry, VENKATA * [place] Suicide Severity Rating Scale (Screener/Recent Self-Report) Question [...] Description 03/29/2025 10:15 AM EDT Office Visit [facility] [address] [place] [address] 3[address] [facility], [address] [place] [address] Zack Sanchez DO [address] [facility] [address] [place] [address] 05/14/2025 1:00 PM EST Office Visit [facility] [address] 3[address] [facility], [address] [place] [address] Rehan Landaverde MD [address] [place] [address] 09/13/2025 9:30 AM EDT Office Visit [facility] 10 [place] [address] Conner Sneed MD [address] [place] [address] [email or web address] Scheduled Procedures Name Priority Associated Diagnoses Date/Ti nj 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 IN DYNAMOMETER TESTER Systolic congestive heart failure, unspecified HF [...] documented as of this encounter Care Teams Engineering Inspection Assistant Relationship Specialty Start Date End Date Marlene Harden NP 70 [place] [address] PCP - General Family Medicine 01/10/22 08/07/24 Cj Meyer DO 70 [place] [address] PCP - General Internal Medicine 08/08/24 Dennis Temple MBBS 70 [place] [address] [email or web address] Primary Oncologist Hematology and Oncology 04/02/23 Gabriela Barnhart CNP 30 [place] [address] [email or web address] Nurse Practitioner Medical Oncology 01/16/24 documented as of this encounter Additional Source Comments The information contained in this document represents components of the legal health record. It is not the complete legal health record.[facility]
--- OUTSIDE RECORDS SUMMARY | 2025-03-22 05:43 | XMS_ITS | Encounter Summary ---
Author Organization [facility] Address [address] [facility] [address] [place] [address] Phone Care Team Providers Care Level Vial Curvature Gauger Name Role Phone Dereck Marlene Mook STRUCTURAL STEEL EQUIPMENT ERECTOR Primary Care Provider [phone] Dennis Temple MBBS Unavailable Gabriela Barnhart SENIOR DIRECTOR OF GLOBAL COMMERCIAL TECHNOLOGY SOLUTIONS Unavailable Cj Meyer DO Primary Care Provider Encounter Details Date Type Department Care Team (Late st Contact Info) Description 07/28/2024 Procedure Pass [facility], Ct Scan - [address] [id number] Social History Tobacco Use Types Packs/Day Years [...] 07/28/2024 9:13 PM Adrian Melo RN * [place] Suicide Severity Rating Scale (Screener/Recent Self-Report) Question Answer Date of Assessment Author 1. Wish to be (Past 1 Month) No 07/28/2024 9:13 PM Adrian Estes, VENKATA 6. Suicidal Behavior (Lifetime) No 07/28/2024 9:13 PM Adrian Estes, VENKATA documented as of this encounter Plan of Treatment Upcoming Encounters Date Type Department Care Team ([facility] st Contact Info) Description 03/29/2025 10:15 AM EDT Office Visit [facility] [address] 3rd [facility], [address] [place] [address] Zack Sanchez DO [address] [place] [address] [place] [address] 05/14/2025 1:00 PM EST Office Visit [address] 3rd [facility], [address] [place] [address] Rehan Landaverde MD [address] [place] [address] 09/13/2025 9:30 AM EDT Office Visit [facility] 10 [place] [address] Conner Sneed MD [address] [place] [address] [email or web address] Scheduled Procedures Name Priority Associated Diagnoses Date/Ti me 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 IN AERIAL CROP DUSTER Systolic congestive heart failure, unspecified HF chronicity [...] documented as of this encounter Care Teams Level Vial Curvature Gauger Relationship Specialty Start Date End Date Marlene Harden NP 70 [place] [address] PCP - General Family Medicine 01/10/22 08/07/24 Cj Meyer DO 70 [place] [address] PCP - General Internal Medicine 08/08/24 Dennis Temple MBBS 70 [place] [address] [email or web address] .[email or web address] Primary Oncologist Hematology and Oncology 04/02/23 Gabriela Barnhart CNP 30 [place] [address] [email or web address] Nurse Practitioner Medical Oncology 01/16/24 documented as of this encounter Additional Source Comments The information contained in this document represents components of the legal health record. It is not the complete legal health record.[facility]
--- OUTSIDE RECORDS SUMMARY | 2025-03-22 05:43 | XMS_ITS | Encounter Summary ---
Author Organization [facility] Address [address] [facility] [address] [place] [address] Phone Care Team Providers Care Resource Development Manager Name Role Phone Marlene Harden DIRECTOR PRIVATE Primary Care Provider Yue Rodrigez RN Unavailable Jennifer Dash CORPORATE WEBMASTER Unavailable felisa Yvonne Montana Unavailable Dennis Temple MBBS Unavailable [phone] Gabriela Barnhart CHIEF SCHOOL FINANCE OFFICER Unavailable Cj Meyer DO Primary Care Provider Encounter Details Date Type Department Care Team (Late st Contact Info) Description 05/14/2022 Transcribe Orders [facility] 30 [place] [address] Marlene Harden NP [address] [place], [place] [id number] Social History Tobacco Use Types Packs/Day Years [...] Description 03/29/2025 10:15 AM EDT Office Visit [facility] [address] [facility] 3rd Floor, [address] [place] [address] Zack Sanchez DO [address] [facility] [address] [place] [address] 05/14/2025 1:00 PM EST Office Visit [facility] [address] 3rd Floor, [address] [place] [address] Rehan Landaverde MD [address] [place] [address] 09/13/2025 9:30 AM EDT Office Visit [facility] 10 [place] [address] Conner Sneed MD [address] [place] [address] [email or web address] Scheduled Procedures Name Priority Associated Diagnoses Date/Ti me 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 IN PHYSICIST SOLID EARTH Systolic congestive heart failure, unspecified HF chronicity [...] documented as of this encounter Care Teams Resource Development Manager Relationship Specialty Start Date End Date Marlene Harden NP 70 [place] [address] PCP - General Family Medicine 01/10/22 08/07/24 Cj Meyer DO 70 [place] [address] PCP - General Internal Medicine 08/08/24 Yue Rodrigez RN [address] [place] [address] iC[employer] Print Line Inspector 02/21/22 06/09/23 Jennifer Dash LCSW [address] [place] [address] [facility] 02/01/23 02/11/23 Yvonne Montana [address] [place] [address] [facility] Community Health Worker 02/25/23 06/09/23 Dennis Temple MBBS [address] [place] [address] [email or web address] Primary Oncologist Hematology and Oncology 04/02/23 Gabriela Barnhart CNP [address] [place] [address] Nurse Practitioner Medical Oncology 01/16/24 documented as of this encounter Additional Source Comments The information contained in this document represents components of the legal health record. It is not the complete legal health record.[facility]
--- OUTSIDE RECORDS SUMMARY | 2025-03-22 05:43 | XMS_ITS | Encounter Summary ---
Author Organization [facility] Address [address] [facility] [address] [place] [address] Phone Care Team Providers Care Envelope Sealer Name Role Phone Marlene Harden NP Primary Care Provider [phone] Dennis Temple MBBS Unavailable [phone] Gabriela Barnhart [employer] Unavailable Cj Meyer DO Primary Care Provider [phone] Reason for Referral * MRI/CAT Scan - Closed Specialty Diagnoses / Procedures Referred By Contflorentin t Referred To Contact Radiology Diagnoses Cigarette smoker Procedures CT Chest Lung Cancer Screening Initial Or Annual Marlene Harden NP Phone: tel: Referral ID Status Reason Start Date Expiration Date Visits Re quested Visits Authorized [id number] Closed 10/03/2023 10/02/2024 1 1 Encounter Details Date Type Department Care Team (Latest Contact Info) Description 10/03/2023 Transcribe Orders Virtual Department 30 [place] [address] Marlene Harden NP [address] [place], [place] [phone] Cigarette smoker (Primary Dx) Social History Tobacco [...] Description 03/29/2025 10:15 AM EDT Office Visit [facility] [address] 3rd Floor, [address] [place] [address] Zack Sanchez DO 22 [facility] [address] [place] [address] 05/14/2025 1:00 PM EST Office Visit [facility] [address] 3rd Floor, [address] [place] [address] Rehan Landaverde MD [address] [place] [address] 09/13/2025 9:30 AM EDT Office Visit [facility] Pul[facility], Allergy and Critical Care Medicine 10 [place] [address] Conner Sneed MD [address] [place] [address] [email or web address] Scheduled Procedures Name Priority Associated Diagnoses Date/Ti nh 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 IN ELECTRIC MOTOR WINDERS ASSEMBLER Systolic congestive heart failure, unspecified HF chronicity [...] categories can be found at:[email or web address] Marlene Harden MANAGER FIELD IMG CT CHEST Final Result documented in [...] documented as of this encounter Care Teams Envelope Sealer Relationship Specialty Start Date End Date Marlene Harden NP 70 [place] [address] PCP - General Family Medicine 01/10/22 08/07/24 Cj Meyer DO 70 [place] [address] PCP - General Internal Medicine 08/08/24 Dennis Temple MBBS 70 [place] [address] [email or web address] Primary Oncologist Hematology and Oncology 04/02/23 Gabriela Barnhart CNP [address] [place] [address] (work) [email or web address] Nurse Practitioner Medical Oncology 01/16/24 documented as of this encounter Additional Source Comments The information contained in this document represents components of the legal health record. It is not the complete legal health record.[facility]
--- OUTSIDE RECORDS SUMMARY | 2025-03-22 05:44 | XMS_ITS | Encounter Summary ---
Author Organization [facility] Address [address] [place] [address] Phone Care Team Providers Care Drone Pilot Name Role Phone Cassie Hardensy Mook INSTRUMENT OPERATOR Primary Care Provider Yue Rodrigez RN Unavailable Jennifer Dash SOAKER HIDES Unavailable felisa Yvonne Montana Unavailable Dennis Temple MBBS Unavailable [phone] Gabriela Barnhart HOSPITAL PHARMACY TECHNICIAN Unavailable Cj Meyer DO Primary Care Provider [phone] Encounter Details Date Type Department Care Team (Late st Contact Info) Description 12/13/2022 Procedure Pass [facility], Ct Scan - [address] [address] Social History Tobacco Use Types Packs/Day Years [...] Description 03/29/2025 10:15 AM EDT Office Visit [facility] [address] 3rd [facility], [address] [place] [address] Zack Sanchez DO [address] [place] [address] [place] [address] 05/14/2025 1:00 PM EST Office Visit [facility] [address] 3[address] [facility], [address] [place] [address] Rehan Landaverde MD [address] [place] [address] 09/13/2025 9:30 AM EDT Office Visit [facility] 10 [place] [address] Conner Sneed MD [address] [place] [address] [email or web address] Scheduled Procedures Name Priority Associated Diagnoses Date/Ti me 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 IN DINKEY PRESS OPERATOR Systolic congestive heart failure, unspecified HF [...] documented as of this encounter Care Teams Drone Pilot Relationship Specialty Start Date End Date Marlene Harden NP 70 [place] [address] PCP - General Family Medicine 01/10/22 08/07/24 Cj Meyer DO 70 [place] [address] PCP - General Internal Medicine 08/08/24 Yue Rodrigez, VENKATA [address] [place] [address] [email or web address] [facility] Scene Painter 02/21/22 06/09/23 Jennifer Dash LCSW [address] [place] [address] [facility] Social Work 02/01/23 02/11/23 Yvonne Montana [address] [place] [address] [facility] Community Health Worker 02/25/23 06/09/23 Dennis Temple MBBS [address] [place] [address] [email or web address] Primary Oncologist Hematology and Oncology 04/02/23 Gabriela Barnhart CNP [address] [place] [address] [email or web address] Nurse Practitioner Medical Oncology 01/16/24 documented as of this encounter Additional Source Comments The information contained in this document represents components of the legal health record. It is not the complete legal health record.[facility]
--- OUTSIDE RECORDS SUMMARY | 2025-03-22 05:44 | XMS_ITS | Encounter Summary ---
Author Organization [facility] Address [address] [place] [address] Phone Care Team Providers Care Flow Match Sofa Cutter Name Role Phone Temple, Ahmastu Mccnan MBBS Unavailable Pack, Gabriela PEER SPECIALIST Unavailable Cj Meyer DO Primary Care Provider [phone] Encounter Details Date Type Department Care Team (Late st Contact Info) Description 08/30/2024 Procedure Pass [facility], Ct Scan - [facility] 30 [place] [address] Social History Tobacco Use Types Packs/Day Years [...] Description 03/29/2025 10:15 AM EDT Office Visit [facility] [address] [place] [address] 3rd Floor, [address] [place] [address] Zack Sanchez, 22 [facility] [address] [place] [address] 05/14/2025 1:00 PM EST Office Visit [facility], [address] [place] [address] Rehan Landaverde MD 50 [place] [address] 09/13/2025 9:30 AM EDT Office Visit [facility] All[facility] 10 [facility] [place] [address] Conner Sneed MD [address] [facility] 2nd [place] [address] [email or web address] Scheduled Procedures Name Priority Associated Diagnoses Date/Ti me 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 IN TELEVISION CABINET FINISHER Systolic congestive heart failure, unspecified HF chronicity documented as of this encounter Visit Diagnoses Not on filedocumented in this encounter Additional Health Concerns Infection Onset Date Last Indicated Resolved Time CoV-Risk Comment:Per note documentation 08/29/2024 08/29/2024 7:27 AM EST Assessment Noted Time PHQ-2 Depression Total Score: 2 03/28/20 22 11:32 AM EDT documented as of this encounter Care Teams Flow Match Sofa Cutter Relationship Specialty Start Date End Date Cj Meyer DO 70 [place] [address] PCP - General Internal Medicine 08/08/24 Dennis Temple MBBS [email or web address] .[email or web address] Primary Oncologist Hematology and Oncology 04/02/23 Gabriela Barnhart CNP 30 [place] [address] Nurse Practitioner Medical Oncology 01/16/24 documented as of this encounter Additional Source Comments The information contained in this document represents components of the legal health record. It is not the complete legal health record.[facility]
--- OUTSIDE RECORDS SUMMARY | 2025-03-22 05:44 | XMS_ITS | Encounter Summary ---
Author Organization [facility] Address [address] [place] [address] Phone Care Team Providers Care Supervisor Coffee Name Role Phone Temple, Ahmastu Mccann MBBS Unavailable Pack, Gabriela ATHLETIC COACH Unavailable Cj Meyer DO Primary Care Provider [phone] Encounter Details Date Type Department Care Team (Late st Contact Info) Description 08/30/2024 Procedure Pass [facility], Ct Scan - [facility] 30 [place] [address] Social History Tobacco Use Types Packs/Day Years [...] Description 03/29/2025 10:15 AM EDT Office Visit [facility] [address] [place] [address] 3rd Floor, [address] [place] [address] Zack Sanchez, 22 [facility] [address] [place] [address] 05/14/2025 1:00 PM EST Office Visit [facility] 3[facility], [address] [place] [address] Rehan Landaverde MD 50 [place] [address] 09/13/2025 9:30 AM EDT Office Visit [facility], Allergy [facility] Critical [facility] Medicine 10 [facility] [address] Conner Sneed MD 10 [facility] 2nd [place] [address] [email or web address] Scheduled Procedures Name Priority Associated Diagnoses Date/Ti me 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 IN DEHYDROGENATION OPERATOR Systolic congestive heart failure, unspecified HF chronicity documented as of this encounter Visit Diagnoses Not on filedocumented in this encounter Additional Health Concerns Infection Onset Date Last Indicated Resolved Time CoV-Risk Comment:Per note documentation 08/29/2024 08/29/2024 7:27 AM EST Assessment Noted Time PHQ-2 Depression Total Score: 2 03/28/20 22 11:32 AM EDT documented as of this encounter Care Teams Supervisor Coffee Relationship Specialty Start Date End Date Cj Meyer DO 70 [place] [address] PCP - General Internal Medicine 08/08/24 Dennis Temple MBBS [email or web address] .[email or web address] Primary Oncologist Hematology and Oncology 04/02/23 Gabriela Barnhart CNP 30 [place] [address] Nurse Practitioner Medical Oncology 01/16/24 documented as of this encounter Additional Source Comments The information contained in this document represents components of the legal health record. It is not the complete legal health record.[facility]
--- OUTSIDE RECORDS SUMMARY | 2025-03-22 05:44 | XMS_ITS | Encounter Summary ---
Author Organization [facility] Address [address] [place] [address] Phone Care Team Providers Care Music Adapter Name Role Phone Cassie Hardensy Mook OPTICAL INSTRUMENT ASSEMBLER Primary Care Provider [phone] Yue Rodrigez RN Unavailable Jennifer Dash ROUTE MANAGER Unavailable felisa Yvonne Montana Unavailable Dennis Temple MBBS Unavailable [phone] Gabriela Barnhart FURNACE ROASTER Unavailable Cj Meyer DO Primary Care Provider [phone] Encounter Details Date Type Department Care Team (Late st Contact Info) Description 12/13/2022 Procedure Pass [facility], Ct Scan - [address] [address] Social History Tobacco Use Types Packs/Day Years [...] Description 03/29/2025 10:15 AM EDT Office Visit [facility] [address] 3rd [facility], [address] [place] [address] Zack Sanchez DO [address] [place] [address] [place] [address] 05/14/2025 1:00 PM EST Office Visit [facility] [address] [facility], [address] [place] [address] Rehan Landaverde MD [address] [place] [address] 09/13/2025 9:30 AM EDT Office Visit [facility] 10 [place] [address] Conner Sneed MD [address] [place] [address] [email or web address] Scheduled Procedures Name Priority Associated Diagnoses Date/Ti me 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 IN AIRPLANE FIRST OFFICER Systolic congestive heart failure, unspecified HF [...] documented as of this encounter Care Teams Music Adapter Relationship Specialty Start Date End Date Marlene Harden NP 70 [place] [address] PCP - General Family Medicine 01/10/22 08/07/24 Cj Meyer DO 70 [place] [address] PCP - General Internal Medicine 08/08/24 Yue Rodrigez, VENKATA [address] [place] [address] [facility] General Expeditor 02/21/22 06/09/23 Jennifer Dash LCSW [address] [place] [address] [facility] Social Work 02/01/23 02/11/23 Yvonne Montana [address] [place] [address] [facility] Community Health Worker 02/25/23 06/09/23 Dennis Temple MBBS [address] [place] [address] [email or web address] Primary Oncologist Hematology and Oncology 04/02/23 Gabriela Barnhart CNP [address] [place] [address] Nurse Practitioner Medical Oncology 01/16/24 documented as of this encounter Additional Source Comments The information contained in this document represents components of the legal health record. It is not the complete legal health record.[facility]
--- OUTSIDE RECORDS SUMMARY | 2025-03-22 05:44 | XMS_ITS | Clinical Summary ---
Author Organization [facility] Address [address] [facility] [address] [place] [address] Phone Care Team Providers Care Shuttlecock Assembler Name Role Phone Temple, Ahmastu Mccann MBBS Unavailable [phone] ObeyPolaen METAL BOX MAKER Unavailable Cj Meyer DO Primary Care Provider [phone] Allergies Active Allergy Reactions Criticality Noted Date Comments Penicillamine 03/31/2014 Other reaction(s): shortness of breath Penicillins 08/04/2024 Scallops 03/31/2014 Other reaction(s): shortness of breath Medications gabapentin (NEURONTIN) 300 MG capsule Take 300 mg by mouth 2 (two) times a day. Usually just in the am and sometimes pm 022 Active OXYGEN-AIR DELIVERY SYSTEMS MISC 2 L by Intranasal route continuous. 2L at rest, 3 L upon ambulation via nasal cannula. 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 024 Active albuterol 2.5 mg /3 mL (0.083 %) nebulizer solution Take 3 mL (2.5 mg total) by nebulization every 4 (four) hours as needed for shortness of breath/dyspnea. Active ipratropium-alb uteroL (DUONEB) 0.5-3 mg (2.5 mg base)/3 mL nebulizer solution Take 3 mL by nebulization 4 (four) times a day. Active fluticasone-ume clidin-vilanter (TRELEGY ELLIPTA) 200-62.5-25 mcg inhaler Inhale 1 puff into the lungs daily. Active oxyCODONE-aceta minophen (PERCOCET) 5-325 mg per tablet Take 1 tablet by mouth every 6 (six) hours as needed for pain (specific location in comments). Partial fill ok 10 tablet Active levETIRAcetam (KEPPRA) 750 MG IMMEDIATE release tablet Take 750 mg by mouth 2 (two) times a day. Active ferrous gluconate 324 mg (38 mg elemental) tablet Take 1 tablet (324 mg total) by mouth 3 (three) times a week on Saturday, Saturday, Saturday. Active ascorbic acid, vitamin C, (VITAMIN C) 500 MG tablet Take 1 tablet (500 mg total) by mouth 3 (three) times a week on Saturday, Saturday, Saturday. Active sacubitriL-vals pepe (ENTRESTO) 24-26 mg per tablet Take 1 tablet by mouth 2 (two) times a day. Active metoprolol succinate (TOPROL-XL) 25 MG 24 hr tablet Take 0.5 tablets (12.5 mg total) by mouth daily. Active roflumilast (DALIRESP) 500 mcg TabIndications: Pulmonary nodules,Chronic respiratory failure with hypoxia TAKE 1 TABLET BY MOUTH DAILY 90 tablet 1 Active aspirin 81 MG EC tablet Take 81 mg by mouth. 025 2025 Active clopidogrel (PLAVIX) 75 mg tablet Take 75 mg by mouth. 025 2025 Active oxyCODONE 5 MG immediate release tablet 09/01/2 025 Active albuterol (VENTOLIN HFA) 90 mcg/actuation inhaler Inhale 2 puffs into the lungs every 6 (six) hours as needed for wheezing. 18 g 5 024 2024 Discontinued(N o longer taking) rivaroxaban (XARELTO) 20 mg Tab Take 1 tablet every day by oral route in the evening. 023 2024 Discontinued(N o longer taking) torsemide (DEMADEX) 20 MG tablet 025 2024 Discontinued(N o longer taking) XARELTO 10 mg tablet Take 10 mg by mouth daily. 025 2024 Discontinued(N o longer taking) roflumilast (DALIRESP) 500 mcg Tab Take 1 tablet (500 mcg total) by mouth daily. 30 tablet 4 025 2024 Discontinued Active Problems Problem Noted Date [...] also going to discuss this with his cloud architect in 1 month to see if he would like to proceed. Assessment & Plan (11/06/2024 4:37 PM EDT): -last stable in Aug on lasix 40 mg qd entresto 24-26 mg bid Most recent echo July showed recovered EF 65 to 70% general good cardiac function. Do not see any additional echocardiograms on the discharge paperwork from [facility] or [facility] where he has been. -gaining wt at alf and seemed to be overdiuresed in recent [...] general good cardiac function -gaining wt at alf and seemed to be overdiuresed in recent [...] 70% general good cardiac function During his alf stay stay 1 month well being significantly [...] stable Also has been on steroids at alf. This may be contributing to his weight [...] stable Also has been on steroids at alf. Continue trellegy and duonebs. Chronic pain Continue chronic oxy Assessment & Plan (11/05/2024 1:26 AM EDT): Chronic COPD on home O2 2L and stable Also has been on steroids at alf. Continue trellegy and duonebs. Chronic pain Continue [...] rehab Left hemiparesis 08/05/2024 Overview (08/30/2024): Per [facility] discharge summary 08/03/24 Cerebral hemorrhage 08/04/2024 Overview (08/30/2024): Right lentiform nucleus hemorrhage Per [facility] discharge summary 08/03/24 Assessment & Plan [...] initial hospitalization 07/30/2024, after initially presenting to [facility] and had findings of acute bleed. Immediately prior to that patient had a hospitalization for COPD exacerbation and suspected seizure where patient was placed on Keppra. Was discharged on 08/03/2024 to rehab however redeveloped worsening headache, found to have worsening vasogenic edema and subsequently readmitted at [facility] on 08/08/2024. Hospital course was complicated by COPD exacerbation secondary to RSV virus with patient was subsequently discharged on a steroid taper to [facility] rehab. -- No new concerns. His [...] initial hospitalization 07/30/2024, after initially presenting to [facility] and had findings of acute bleed. Immediately prior to that patient had a hospitalization for COPD exacerbation and suspected seizure where patient was placed on Keppra. -Was discharged on 08/03/2024 to rehab however redeveloped worsening headache, found to have worsening vasogenic edema and subsequently readmitted at [facility] on 08/08/2024. Hospital course was complicated by COPD exacerbation secondary to RSV virus with patient was subsequently discharged on a steroid taper to [facility] rehab. -Through reviewing discharge records from [facility] on 08/13/2024, recommendations from neurology were to resume Xarelto tentatively on 08/26/2024 with discontinuation of daily aspirin, confirmed with patients marina edwards that they were instructed to resume xarelto [...] or leukocytosis -Ceftriaxone azithromycin -repeat chest x-ray -quality assurance monitor final -Supplemental oxygen Other hyperlipidemia 06/18/2024 Assessment & [...] in late September until now -labs from alf 11 down to 7s, now in 8s. [...] GI in the office. - ct meng hajily Assessment & Plan (11/05/2024 8:08 AM EDT): - fatigue increased dyspnea with exertion that was of insidious onset over several weeks in september until now -labs from alf 11 down to 7s, now in 8s, [...] no source was found anemia - ct xareljosephine cautiously Assessment & Plan (11/05/2024 1:13 AM EDT): Will that patient had fatigue increased dyspnea with exertion that was of insidious onset over several weeks in september until now Labs provided by the alf reveal a drop in hemoglobin during that [...] on 08/26/2024 per recommendations from neurology from [facility] upon discharge with instructions to discontinue aspirin. -- Continue Toprol-XL, amiodarone rivaroxaban Assessment & Plan (08/30/2024 6:01 PM EST): Continue amiodarone, metoprolol 50 mg, Xarelto 20 mg. Patient resume Xarelto on 08/26/2024 per recommendations from neurology from [facility] upon discharge with instructions to discontinue aspirin. [...] PM EST): With rapid ventricular response. His cloud architect, Dr. Morales started him on amiodarone 05/26 [...] however, shared decision to send patient to [facility] ED for evaluation/treatment to monitor closely due to above- stated signs/symptoms and hypotension. Assessment & Plan (10/15/2024 2:13 PM EDT): Patient is fluid overloaded on exam today. He has gained > 40 pounds since the last time he has been seen in the epic system a few months ago. He is [...] improvement, no ICD was recommended. Follow-up with cloud architect in 3 months once resulted, sooner for [...] Encounters Date Type Department Care Team Description 03/16/2025 9:00 AM EDT Office Visit [facility] [address] [place] [address] Conner Sneed MD Former smoker; Pulmonary emphysema, unspecified emphysema type 03/16/2025 Telephone [facility] [address] [place] [address] GuyCindy manriquez POC order 03/11/2025 Refill [facility] [address] [place] [address] Conner Sneed MD Medication Refill 03/03/2025 Telephone [facility] [address], [address] [place] [address] Bailey Ocasio 01/22/2025 3:40 PM EDT Office Visit [facility] [address], [address] [place] [address] Rehan Landaverde MD Paroxysmal atrial fibrillation (Primary Dx) from Last 3 Months Immunizations Immunization Administration [...] Sign Reading Time Taken Comments Blood Pressure 120/70 03/16/2025 8:59 AM EDT Pulse 56 03/16/2025 8:59 AM EDT Temperature 36.4 C (97.5 F) 03/16/2025 8:59 AM EDT Respiratory Rate 18 11/07/2024 3:17 PM EDT Oxygen Saturation 98% 03/16/2025 8:5 9 AM EDT 2 L POC in office Inhaled Oxygen Concentration 35% 07/22/2024 11:00 AM EST Weight 99.2 kg (218 lb 9.6 oz) 03/16/2025 8:59 AM EDT Height 170.2 cm (5' 7.01 ) 03/16/2025 8 :59 AM EDT Body Mass Index 34.23 03/16/2025 8:59 AM EDT Plan of Treatment Upcoming Encounters Date Type Department Care Team (Late st Contact Info) Description 03/29/2025 10:15 AM EDT Office Visit [facility] [address] [facility], [address] [place] [address] Zack Sanchez DO [address] [place] [address] [place] [address] 05/14/2025 1:00 PM EST Office Visit [facility] [address], [address] [place] [address] Rehan Landaverde MD [address] [place] [address] 09/13/2025 9:30 AM EDT Office Visit [facility] [address] [facility] [place] [address] [place] [address] Conner Sneed MD [address] [place] [address] [email or web address] Scheduled Procedures Name Priority Associated Diagnoses Date/Ti me 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 IN TILE FINISHER Systolic congestive heart failure, unspecified HF [...] 2024- season) 2025 11/29/2020, 11/29/2020 BLOOD PRESSURE 09/13/2025 03/16/2025 ALT LEVEL (ALANINE AMINOTRANSFERASE) 11/05/2025 11/05/2024, 11/04/2024, 08/31/2024, Additional history exists TSH LEVEL 11/07/2025 11/07/2024, 02/05, 02/20/2023, Additional history exists LUNG CANCER SCREENING (LDCT Only) 12/19/2025 12/19/2024, 08/30/2024, 07/18/2024, Additional history exists SMOKING Hx and SMOKELESS TOBACCO SCREENING 03/16/2026 03/16/2025 Adult Td,Tdap Booster 09/28/2026 09/28/2016 SCREENING FOR [...] this topic Medical Devices Implanted Type Area Natural Science Manager Device Identifier Shelf Expiration Date Model / Serial / Lot Plate And Screws In Pelvis Procedures Procedure Name Priority Date/Time Associated Diagnosis Comments CT CHEST LUNG CANCER SCREENING ANNUAL Routine 12/19/2024 10:16 AM EDT Former smoker TSH Routine 11/07/2024 [...] clinician's provided indication for this examination in [facility]: Lung Cancer Screening - FORMER smoker, quit [...] clinician's provided indication for this examination in [facility]:Lung Cancer Screening - FORMER smoker, quit in [...] be found at:[email or web address] us Conner Sneed MD IMG CT CHEST Final Re sult * TSH (11/07/2024 5:31 AM EDT) TSH 3.65 0.27 - 4.20 uIU/mL [facility] Blood 11/07/2024 5:31 AM EDT 11/07/2024 6:00 AM EDT us Giuliano Adan MD LAB BLOOD ORDERABLES Final Result [address] [address] * (ABNORMAL) Comprehensive metabolic panel (11/05/2024 5:57 AM EDT) SODIUM 139 133 - 146 mmol/L [facility] POTASSIUM 3.6 3.3 - 5.1 mmol/L [facility] CHLORIDE 97 96 - 108 mmol/L [facility] CO2 32 21 - 35 mmol/L [facility] BUN 39(H) 6 - 19 mg/dL [facility] CREATININE 1.90(H) 0.5 - 1.5 mg/dL [facility] GLUCOSE 112(H) 70 - 99 mg/dL [facility] ALBUMIN 3.2(L) 3.9 - 4.8 g/dL [facility] TOTAL PROTEIN 6.2(L) 6.5 - 8.0 g/dL [facility] CALCIUM 8.5 8.4 - 10.3 mg/dL [facility] ALKALINE PHOSPHATASE 91 39 - 117 U/L [facility] TOTAL BILIRUBIN <0.2 0.0 - 1.2 mg/dL [facility] AST 16 0 - 37 U/L [facility] ALT 14 0 - 40 U/L [facility] GLOBULIN 3.0 1 - 4.8 g/dL [facility] EGFR 40(L) >59 mL/min/1.7 3m2 [facility] Comment:Estimated glomerular filtration rate calculated using the CKD-EPI refit equation. ANION GAP 14 10 - 20 mmol/L [facility] Blood 11/05/2024 5:57 AM EDT 11/05/2024 6:34 AM EDT us Anastacia Dietrich MD LAB BLOOD ORDERABLES Final Result Performing Organization Address [facility]/ZIP Co de Phone Number [address] [address] * ENDOSCOPY, COLON (02/22/2023 1:37 PM EDT) Narrative Transcriptions Ioana Armijo MD - 02/22/2023 1:37 PM EDT [facility] Patient Name: Yousif Orellana Attending MD:: IOANA ARMIJO MD, Procedure Date: 02/22/2023 1:37 PM Date of : 1965 Age: 57 Admit Type: Inpatient Gender: Male Room: [place] [address] Referring MD: SHANIKA MONTEMAYOR NP Exam Type: [...] 1:37 PM Procedure Code(s): --- Professional --- 10235, Colonoscopy, flexible; diagnostic, including collection of specimen(s) by brushing or washing, when performed (separateprocedure) --- Technical --- 72440, Colonoscopy, flexible; diagnostic, including collection of specimen(s) by brushing or washing, when performed (separateprocedure) Diagnosis Code(s): --- Professional --- D50.9, Iron deficiency anemia, unspecified --- Technical --- D50.9, Iron deficiency anemia, unspecified CPT copyright 2021 [employer]. All rights reserved. The codes documented in this report are preliminary and upon underground repairer reviewmay be revised to meet current compliance requirements. Procedure Date: 02/22/2023 1:37:[address] [place] [address] Shanika Montemayor NP GI PROCEDURE ORDERABLES Final R esult from Last 3 Months or Most Recently Relevant to Health Maintenance Insurance [employer] MEDICARE PART A & B [place] [facility] [place] [phone] MEDICARE PART A & B [place] PART [place] & B [place] & [place] MEDICARE PART A & B [facility] MEDICARE PART A & B MEDICARE PART A & B [facility] Advance Directives For more information, please contact: [phone] (9AM - 5PM Mona/[facility], Saturday-Saturday) Documents on File Type Date Recorded Patient Internal Medicine Hospitalist Expl anation Healthcare Proxy 07/22/2024 3:40 PM [...] Agent (Proxy form on file) Care Teams Shuttlecock Assembler Relationship Specialty Start Date End Date Cj Meyer DO [address] [place] [address] PCP - General Internal Medicine 08/08/24 Dennis Temple MBBS [email or web address] Primary Oncologist Hematology and Oncology 04/02/23 Gabriela Barnhart CNP [address] [place] [address] [email or web address] Nurse Practitioner Medical Oncology 01/16/24 Additional Source Comments The information contained in this document represents components of the legal health record. It is not the complete legal health record.[facility]
--- OUTSIDE RECORDS SUMMARY | 2025-03-22 05:44 | XMS_ITS | Encounter Summary ---
Author Organization [facility] Address [address] [place] [address] Phone Care Team Providers Care Manager Product Design Name Role Phone Olegario Guy MD Primary Care Provider [phone] Marlene Harden NP Primary Care Provider [phone] Yue Rodrigez RN Unavailable Jennifer Dash BENCH TECHNICIAN Unavailable [email or web address] Yvonne Montana Unavailable Dennis Temple MBBS Unavailable Gabriela Barnhart INSURANCE AGENCY MANAGER Unavailable Cj Meyer DO Primary Care Provider [phone] Encounter Details Date Type Department Care Team (Latest Contact Info) Description 03/28/2020 Transcribe Orders Virtual Department [address] [place] [address] Jie Wu NP [address] [place] [phone] [email or web address] Neck pain (Primary Dx) Social History Tobacco [...] Description 03/29/2025 10:15 AM EDT Office Visit [facility] [address], [address] [place] [address] Zack Sanchez DO [address] [facility] [address] [place] [address] 05/14/2025 1:00 PM EST [facility] Visit [facility] [address], [address] [place] [address] Rehan Landaverde MD [address] [place] [address] 09/13/2025 9:30 AM EDT Office Visit [facility] [address] [place] [address] Conner Sneed MD [address] [place] [phone] [email or web address] Scheduled Procedures Name Priority Associated Diagnoses Date/Ti me 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 IN GLOBAL PROFESSIONAL Systolic congestive heart failure, unspecified HF chronicity [...] stable. No evidence of instability. POS - [id number] Narrative 04/01/2020 9:03 AM EDT HISTORY: Left [...] is stable. No evidence ofinstability. POS - [id number] Jie Wu NP IMG XR SPINE Final [...] documented as of this encounter Care Teams Manager Product Design Relationship Specialty Start Date End Date Olegario Guy MD [address] [facility] [address] [place] [phone] PCP - General Family Medicine 03/28/20 01/09/22 Marlene Harden SUIT MAKER [address] [place] [address] PCP - General Family Medicine 01/10/22 08/07/24 Cj Meyer DO [address] [place] [address] PCP - General Internal Medicine 08/08/24 Yue Rodrigez, VENKATA [address] [place] [address] [email or web address] [facility] Electrode Cleaner 02/21/22 06/09/23 Jennifer Dash LCSW [address] [place] [address] [email or web address] Social Work 02/01/23 02/11/23 Yvonne Montana [address] [place] [address] [email or web address] [facility] Community Health Worker 02/25/23 06/09/23 Dennis Temple MBBS [address] [place] [address] [email or web address] Primary Oncologist Hematology and Oncology 04/02/23 Gabriela Barnhart CNP [address] [place] [address] Nurse Practitioner Medical Oncology 01/16/24 documented as of this encounter Additional Source Comments The information contained in this document represents components of the legal health record. It is not the complete legal health record.[facility]
--- OUTSIDE RECORDS SUMMARY | 2025-03-22 05:44 | XMS_ITS | Encounter Summary ---
Author Organization [facility] Address [address] [facility] [address] [place] [address] Phone Care Team Providers Care Surgical Appliance Fitter Name Role Phone Olegario Guy MD Primary Care Provider [phone] Marlene Harden NP Primary Care Provider [phone] Yue Rodrigez RN Unavailable Jennifer Dash BAIT MAKER Unavailable [email or web address] Yvonne Montana Unavailable Dennis Temple MBBS Unavailable Gabriela Barnhart METAL FLOW COORDINATOR Unavailable Cj Meyer DO Primary Care Provider Encounter Details Date Type Department Care Team (Late st Contact Info) Description 01/05/2022 Procedure [facility], Ct Scan - [address] [address] Social History Tobacco Use Types Packs/Day Years [...] Description 03/29/2025 10:15 AM EDT Office Visit [facility] [address], [address] [place] [address] Zack Sanchez DO [address] [facility] [address] [place] [address] 05/14/2025 1:00 PM EST Office Visit [facility] [address] [facility] [address] [facility], [address] [place] [address] Rehan Landaverde MD [address] [place] [address] 09/13/2025 9:30 AM EDT Office Visit [facility] [address] [place] [address] Conner Sneed MD [address] [place] [address] [email or web address] Scheduled Procedures Name Priority Associated Diagnoses Date/Ti me 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 IN WEDGER AND GLUER Systolic congestive heart failure, unspecified HF chronicity [...] documented as of this encounter Care Teams Surgical Appliance Fitter Relationship Specialty Start Date End Date Olegario Guy MD [address] [facility] [address] [place] [phone] [email or web address] PCP - General Family Medicine 03/28/20 01/09/22 Marlene Harden NP [address] [place], [place] PCP - General Family Medicine 01/10/22 08/07/24 Cj Meyer DO [address] [place] [address] PCP - General Internal Medicine 08/08/24 Yue Rodrigez RN [address] [place] [address] [facility] Correctional Captain 02/21/22 06/09/23 Jennifer Dash LCSW [address] [place] [address] [facility] Social Work 02/01/23 02/11/23 Yvonne Montana [address] [place] [address] [email or web address] [facility] Community Health Worker 02/25/23 06/09/23 Dennis Temple MBBS [address] [place] [address] [email or web address] Primary Oncologist Hematology and Oncology 04/02/23 Gabriela Barnhart CNP [address] [place] [address] [email or web address] Nurse Practitioner Medical Oncology 01/16/24 documented as of this encounter Additional Source Comments The information contained in this document represents components of the legal health record. It is not the complete legal health record.[facility]
--- OUTSIDE RECORDS SUMMARY | 2025-03-22 05:44 | XMS_ITS | Encounter Summary ---
Author Organization [facility] Address [address] [place] [address] Phone Care Team Providers Care On Site Coordinator Name Role Phone Marlene Harden ASSISTANT SPA MANAGER Primary Care Provider [phone] Yue Rodrigez RN Unavailable Yvonne Montana Unavailable [email or web address] Dennis Temple MBBS Unavailable [phone] Gabriela Barnhart PROPERTY PRESERVATION SPECIALIST Unavailable Cj Meyer DO Primary Care Provider [phone] Encounter Details Date Type Department Care Team (Late st Contact Info) Description 03/03/2023 Procedure Pass [facility], Ct Scan - [address] [address] Social History Tobacco Use Types Packs/Day Years [...] Risk Indicated 03/03/2023 3:07 PM EDT Alycia Mahajan, VENKATA * [place] Suicide Severity Rating Scale (Screener/Recent Self-Report) Question [...] Description 03/29/2025 10:15 AM EDT Office Visit [facility] [address] [place] [address] [place] [address], [address] [place] [address] Zack Sanchez DO [address] [place] [address] [place] [address] 05/14/2025 1:00 PM EST Office Visit [facility] [address] 3rd [facility], [address] [place] [address] Rehan Landaverde MD [address] [place] [address] 09/13/2025 9:30 AM EDT Office Visit [facility] 10 [facility] [place] [address] Conner Sneed MD 10 [facility] 2nd [place] [address] [email or web address] Scheduled Procedures Name Priority Associated Diagnoses Date/Ti me 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 IN MOTOR REBUILDER Systolic congestive heart failure, unspecified HF chronicity [...] documented as of this encounter Care Teams On Site Coordinator Relationship Specialty Start Date End Date Marlene Harden NP [address] [place] [address] PCP - General Family Medicine 01/10/22 08/07/24 Cj Meyer DO 70 [place] [address] PCP - General Internal Medicine 08/08/24 Yue Rodrigez, VENKATA [address] [place] [address] iCMP Amr Physician 02/21/22 06/09/23 Yvonne Montana [address] [place] [address] [facility] Community Health Worker 02/25/23 06/09/23 Dennis Temple MBBS [address] [place] [address] [email or web address] Primary Oncologist Hematology and Oncology 04/02/23 Gabriela Barnhart CNP [address] [place] [address] [email or web address] Nurse Practitioner Medical Oncology 01/16/24 documented as of this encounter Additional Source Comments The information contained in this document represents components of the legal health record. It is not the complete legal health record.[facility]
--- OUTSIDE RECORDS SUMMARY | 2025-03-22 05:44 | XMS_ITS | Encounter Summary ---
Author Organization [facility] Address [address] [facility] [address] [place] [address] Phone Care Team Providers Care Casino Worker Name Role Phone Olegario Guy MD Primary Care Provider [phone] Marlene Harden NP Primary Care Provider [phone] Yue Rodrigez RN Unavailable Jennifer Dash RE RECORDING MIXER Unavailable ndelabar Yvonne Montana Unavailable Dennis Temple MBBS Unavailable Gabriela Barnhart REVENUE INTEGRITY ANALYST Unavailable Cj Meyer DO Primary Care Provider Encounter Details Date Type Department Care Team (Late st Contact Info) Description 03/28/2020 Procedure Pass [facility], [address] [address] Social History Tobacco Use Types Packs/Day Years [...] Description 03/29/2025 10:15 AM EDT Office Visit [facility] [address]rd [facility], [address] [place] [address] Zack Sanchez DO 22 [facility] [address] [place] [address] 05/14/2025 1:00 PM EST Office Visit [facility] 22 [facility] 3rd [facility], [address] [place] [address] Rehan Landaverde MD [address] [place] [address] 09/13/2025 9:30 AM EDT Office Visit [facility] [address] [place] [address] Conner Sneed MD [address] [place] [address] [email or web address] Scheduled Procedures Name Priority Associated Diagnoses Date/Ti me 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 IN PLATE DEVELOPER Systolic congestive heart failure, unspecified HF [...] as of this encounter Care Teams Casino Worker Relationship Specialty Start Date End Date Olegario Guy MD 230 [facility] [address] [place] [address] [email or web address] PCP - General Family Medicine 03/28/20 01/09/22 Marlene Harden NP 70 [place] [address] PCP - General Family Medicine 01/10/22 08/07/24 Cj Meyer DO [address] [place] [address] PCP - General Internal Medicine 08/08/24 Yue Rodrigez, VENKATA [address] [place] [address] [facility] Programmer Analyst 02/21/22 06/09/23 Jennifer Dash LCSW [address] [place] [address] [facility] Social Work 02/01/23 02/11/23 Yvonne Montana [address] [place] [address] [facility] Community Health Worker 02/25/23 06/09/23 Dennis Temple MBBS [address] [place] [address] [email or web address] Primary Oncologist Hematology and Oncology 04/02/23 Gabriela Barnhart CNP [address] [place] [address] [email or web address] Nurse Practitioner Medical Oncology 01/16/24 documented as of this encounter Additional Source Comments The information contained in this document represents components of the legal health record. It is not the complete legal health record.[facility]
--- OUTSIDE RECORDS SUMMARY | 2025-03-22 05:44 | XMS_ITS | Encounter Summary ---
Author Organization [facility] Address [address] [facility] [address] [place] [address] Phone Care Team Providers Care Icer Air Conditioning Name Role Phone Olegario Guy MD Primary Care Provider [phone] Marlene Harden COMPUTER NUMERICAL CONTROL OPERATOR Primary Care Provider Yue Rodrigez RN Unavailable Jennifer Dash TEST KITCHEN HOME ECONOMIST Unavailable ndelabar Yvonne Montana Unavailable Dennis Temple MBBS Unavailable Gabriela Barnhart STATIONARY FIREMAN Unavailable Cj Meyer DO Primary Care Provider Encounter Details Date Type Department Care Team (Latest Contact Info) Description 01/02/2022 Transcribe Orders Virtual Department 30 [place] [address] Marlene Harden, CAM [address] [place], [place] [id number] Shortness of breath (Primary Dx); Dyspnea, unspecified [...] Description 03/29/2025 10:15 AM EDT Office Visit [facility] [address] 3rd Floor, [address] [place] [address] Zack Sanchez DO [address] [facility] [address] [place] [address] 05/14/2025 1:00 PM EST Office Visit [facility] [address] 3rd Floor, [address] [place] [address] Rehan Landaverde MD [address] [place] [address] 09/13/2025 9:30 AM EDT Office Visit [facility] Pulmonary, Allergy and Critical Care Medicine 10 [place] [address] Conner Sneed MD [address] [place] [address] [email or web address] Scheduled Procedures Name Priority Associated Diagnoses Date/Ti me 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 IN PLAYERS ASSISTANT Systolic congestive heart failure, unspecified HF chronicity documented as of this encounter Results * Pulmonary Function Test Reason for Exam: Dyspnea/Shortness of Breath; Type of PFT Test: Spirometry with bronchodilator, DLCO, Lung Volumes; Performing Location: [facility] (05/21/2022 3:49 PM EST) FEV1 1.08 liters [...] documented as of this encounter Care Teams Icer Air Conditioning Relationship Specialty Start Date End Date Olegario Guy MD 230 [facility] [address] [place] [phone] [email or web address] PCP - General Family Medicine 03/28/20 01/09/22 Marlene Harden, COMPUTER NUMERICAL CONTROL OPERATOR 70 [place] [address] PCP - General Family Medicine 01/10/22 08/07/24 Cj Meyer DO [address] [place] [address] PCP - General Internal Medicine 08/08/24 Yue Rodrigez, VENKATA [address] [place] [address] [facility] White Sugar Boiler 02/21/22 06/09/23 Jennifer Dash LCSW [address] [place] [address] [facility] Social Work 02/01/23 02/11/23 Yvonne Montana [address] [place] [address] [email or web address] [facility] Community Health Worker 02/25/23 06/09/23 Dennis Temple MBBS [address] [place] [address] [email or web address] Primary Oncologist Hematology and Oncology 04/02/23 Gabriela Barnhart CNP [address] [place] [address] Nurse Practitioner Medical Oncology 01/16/24 documented as of this encounter Additional Source Comments The information contained in this document represents components of the legal health record. It is not the complete legal health record.[facility]
--- OUTSIDE RECORDS SUMMARY | 2025-03-22 05:44 | XMS_ITS | Encounter Summary ---
Author Organization [facility] Address [address] [facility] [address] [place] [address] Phone Care Team Providers Care Rubber Goods Repairer Name Role Phone Marlene Harden GERIATRIC SOCIAL WORKER Primary Care Provider [phone] Yue Rodrigez RN Unavailable Jennifer Dash HOSPITAL CHIEF FINANCIAL OFFICER Unavailable felisa Yvonne Montana Unavailable Dennis Temple MBBS Unavailable [phone] Gabriela Barnhart MYSTERY SHOPPER Unavailable Cj Meyer DO Primary Care Provider Encounter Details Date Type Department Care Team (Late st Contact Info) Description 02/20/2022 Procedure Pass [facility] [address] [place] [address] Social History Tobacco Use Types Packs/Day [...] 11:20 AM EDT Elizabeth Le RN * [place] Suicide Severity Rating Scale (Screener/Recent Self-Report) Question [...] Upcoming Encounters Date Type Department Care Team ([facility] st Contact Info) Description 03/29/2025 10:15 AM EDT Office Visit [facility] [address] 3[address] [facility], [address] [place] [address] Zack Sanchez DO [address] [address] [place] [address] 05/14/2025 1:00 PM EST Office Visit [address], [address] [place] [address] Rehan Landaverde MD [address] [place] [address] 09/13/2025 9:30 AM EDT Office Visit [facility] 10 [place] [address] Conner Sneed MD [address] [place] [address] [email or web address] Scheduled Procedures Name Priority Associated Diagnoses Date/Ti me 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 IN TERMINOLOGIST Systolic congestive heart failure, unspecified HF chronicity [...] documented as of this encounter Care Teams Rubber Goods Repairer Relationship Specialty Start Date End Date Marlene Harden NP 70 [place] [address] PCP - General Family Medicine 01/10/22 08/07/24 Cj Meyer DO [address] [place] [address] PCP - General Internal Medicine 08/08/24 Yue Rodrigez, VENKATA [address] [place] [address] [email or web address] Liquor Store Manager 02/21/22 06/09/23 Jennifer Dash LCSW [address] [place] [address] [email or web address] Social Work 02/01/23 02/11/23 Yvonne Montana [address] [place] [address] [email or web address] [facility] Community Health Worker 02/25/23 06/09/23 Dennis Temple MBBS [address] [place] [address] [email or web address] [email or web address] Primary Oncologist Hematology and Oncology 04/02/23 Gabriela Barnhart CNP [address] [place] [address] [email or web address] Nurse Practitioner Medical Oncology 01/16/24 documented as of this encounter Additional Source Comments The information contained in this document represents components of the legal health record. It is not the complete legal health record.[facility]
--- OUTSIDE RECORDS SUMMARY | 2025-03-22 05:44 | XMS_ITS | Encounter Summary ---
Author Organization [facility] Address [address] [facility] [address] [place] [address] Phone Care Team Providers Care Advisory Intern Name Role Phone Olegario Guy MD Primary Care Provider [phone] Marlene Harden NP Primary Care Provider [phone] Yue Rodrigez RN Unavailable Jennifer Dash GOVERNMENT CONTRACTS MANAGER Unavailable ndelabar Yvonne Montana Unavailable Dennis Temple MBBS Unavailable [phone] Gabriela Barnhart LABORER POLE CREW Unavailable Cj Meyer DO Primary Care Provider [phone] Reason for Referral * MRI/CAT Scan - Closed Specialty Diagnoses / Procedures Referred By Contac t Referred To Contact Radiology Diagnoses Cervical radiculopathy Procedures MRI Cervical Spine Jie Wu NP Phone: tel: fax: [email or web address] Referral ID Status Reason Start Date Expiration Date Visits Re quested Visits Authorized [id number] Closed 03/21/2020 04/04/2020 1 1 Encounter Details Date Type Department Care Team (Latest Contact Info) Description 03/28/2020 Transcribe Orders [address] [address] Jie Wu NP [address] [place] [phone] [email or web address] Cervical radiculopathy (Primary Dx) Social History Tobacco [...] Upcoming Encounters Date Type Department Care Team ([facility] st Contact Info) Description 03/29/2025 10:15 AM EDT Office Visit [facility] [address] [place] [address], [address] [address] Zack Sanchez DO [address] [place] [address] 05/14/2025 1:00 PM EST Office Visit [facility] [address], [address] [address] Rehan Landaverde MD [address] [place] [address] 09/13/2025 9:30 AM EDT Office Visit [facility] 10 [place] [address] Conner Sneed MD [address] [place] [address] [email or web address] Scheduled Procedures Name Priority Associated Diagnoses Date/Ti me 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 IN MENTAL HEALTH UNIT LEAD PSYCHOLOGIST Systolic congestive heart failure, unspecified HF chronicity [...] documented as of this encounter Care Teams Advisory Intern Relationship Specialty Start Date End Date Olegario Guy MD [address] [place] [address] [address] [place] [phone] [email or web address] PCP - General Family Medicine 03/28/20 01/09/22 Marlene Harden NP [address] [place] [address] PCP - General Family Medicine 01/10/22 08/07/24 Cj Meyer DO [address] [place] [address] PCP - General Internal Medicine 08/08/24 Yue Rodrigez, RN [address] [place] [address] [facility] Knockdown Man 02/21/22 06/09/23 Jeninfer Dash LCSW [address] [place] [address] [facility] Social Work 02/01/23 02/11/23 Yvonne Montana [address] [place] [address] [email or web address] [facility] Community Health Worker 02/25/23 06/09/23 Dennis Temple MBBS [address] [place] [address] [email or web address] Primary Oncologist Hematology and Oncology 04/02/23 Gabriela Barnhart CNP [address] [place] [address] [email or web address] Nurse Practitioner Medical Oncology 01/16/24 documented as of this encounter Additional Source Comments The information contained in this document represents components of the legal health record. It is not the complete legal health record.[facility]
--- OUTSIDE RECORDS SUMMARY | 2025-03-22 05:44 | XMS_ITS | Encounter Summary ---
Author Organization [facility] Address [address] [place] [address] Phone Care Team Providers Care Supervisor Self Service Store Name Role Phone Temple, Ahmastu Mccann MBBS Unavailable Pack, Gabriela CARBON COATER MACHINE OPERATOR Unavailable Cj Meyer DO Primary Care Provider [phone] Encounter Details Date Type Department Care Team (Late st Contact Info) Description 12/09/2024 Procedure Pass [facility], Ct Scan - [address] [address] Social History Tobacco Use Types Packs/Day Years [...] Description 03/29/2025 10:15 AM EDT Office Visit [facility] [address] [place] [address] 3rd Floor, [address] [place] [address] Zack Sanchez, DO 22 [facility] [address] [place] [address] 05/14/2025 1:00 PM EST Office Visit [facility] [address] [place] [address] 3rd Floor, [address] [place] [address] Rehan Landaverde MD 50 [place] [address] 09/13/2025 9:30 AM EDT Office Visit [facility] 10 [facility] [place] [address] Conner Sneed MD 10 [facility] 2nd [place] [address] [email or web address] Scheduled Procedures Name Priority Associated Diagnoses Date/Ti me 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 IN BENDING MACHINE OPERATOR Systolic congestive heart failure, unspecified HF chronicity documented as of this encounter Visit Diagnoses Not on filedocumented in this encounter Additional Health Concerns Assessment Noted Time PHQ-2 Depression Total Score: 2 03/28/20 22 11:32 AM EDT documented as of this encounter Care Teams Supervisor Self Service Store Relationship Specialty Start Date End Date Cj Meyer DO [address] [place] [address] PCP - General Internal Medicine 08/08/24 Dennis Temple MBBS [email or web address] Primary Oncologist Hematology and Oncology 04/02/23 Gabriela Barnhart CNP 30 [place] [address] [email or web address] Nurse Practitioner Medical Oncology 01/16/24 documented as of this encounter Additional Source Comments The information contained in this document represents components of the legal health record. It is not the complete legal health record.[facility]
--- OUTSIDE RECORDS SUMMARY | 2025-03-22 05:44 | XMS_ITS | Encounter Summary ---
Author Organization [facility] Address [address] [facility] [address] [place] [address] Phone Care Team Providers Care Boiling House Hand Name Role Phone Olegario Guy MD Primary Care Provider [phone] Marlene Harden NP Primary Care Provider [phone] Yue Rodrigez RN Unavailable Jennifer Dash RAILWAY YARD ASSISTANT Unavailable ndelabar Yvonne Montana Unavailable Dennis Temple MBBS Unavailable [phone] Gabriela Barnhart WIND TURBINE ELECTRICAL ENGINEER Unavailable Cj Meyer DO Primary Care Provider [phone] Reason for Referral * MRI/CAT Scan - Closed Specialty Diagnoses / Procedures Referred By Contflorentin t Referred To Contact Radiology Diagnoses Abnormal chest x-ray Procedures CT Chest Marlene Harden NP Phone: tel: Referral ID Status Reason Start Date Expiration Date Visits Re quested Visits Authorized [id number] Closed 01/05/2022 01/05/2023 1 1 Encounter Details Date Type Department Care Team (Latest Contact Info) Description 01/05/2022 Transcribe Orders Virtual Department 30 [place] [address] Marlene Harden NP [address] [place] [address] Abnormal chest x-ray (Primary Dx) Social History [...] Description 03/29/2025 10:15 AM EDT Office Visit [facility] [address] 3rd [facility], [address] [place] [address] Zack Sanchez DO 22 [facility] [address] [place] [address] 05/14/2025 1:00 PM EST Office Visit [address] 3rd Floor, [address] [place] [address] Rehan Landaverde MD [address] [place] [address] 09/13/2025 9:30 AM EDT Office Visit [facility] [address] [place] [address] Conner Sneed MD [address] [place] [address] [email or web address] Scheduled Procedures Name Priority Associated Diagnoses Date/Ti me 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 IN TILE MACHINE OPERATOR Systolic congestive heart failure, unspecified [...] CT chest in 6-8 weeks. Marlene Harden HEEL EMERY BUFFER IMG CT CHEST Final Result documented in [...] documented as of this encounter Care Teams Boiling House Hand Relationship Specialty Start Date End Date Olegario Guy MD [address] [place] [address] [address] [place] [address] [email or web address] PCP - General Family Medicine 03/28/20 01/09/22 Marlene Harden NP 70 [place] [address] PCP - General Family Medicine 01/10/22 08/07/24 Cj Meyer DO 70 [place] [address] PCP - General Internal Medicine 08/08/24 Yue Rodrigez, RN [address] [place] [address] [email or web address] [facility] Building Dismantler 02/21/22 06/09/23 Jennifer Dash LCSW [address] [place] [address] [email or web address] [facility] Social Work 02/01/23 02/11/23 Yvonne Montana [address] [place] [address] [email or web address] [facility] Community Health Worker 02/25/23 06/09/23 Dennis Temple MBBS [address] [place] [address] [email or web address] Primary Oncologist Hematology and Oncology 04/02/23 Gabriela Barnhart CNP [address] [place] [address] [email or web address] Nurse Practitioner Medical Oncology 01/16/24 documented as of this encounter Additional Source Comments The information contained in this document represents components of the legal health record. It is not the complete legal health record.[facility]
--- OUTSIDE RECORDS SUMMARY | 2025-03-22 05:44 | XMS_ITS | Encounter Summary ---
Author Organization [facility] Address [address] [facility] [address] [place] [address] Phone Care Team Providers Care Post Commander Name Role Phone Olegario uGy MD Primary Care Provider Marlene Harden HARBOR ENGINEER Primary Care Provider [phone] Yue Rodrigez RN Unavailable Jennifer Dash FINANCIAL ACCOUNTING ANALYST Unavailable [email or web address] Yvonne Montana Unavailable [email or web address] Dennis Temple MBBS Unavailable [phone] Gabriela Barnhart FLUX CORE WELDER Unavailable Cj Meyer DO Primary Care Provider Encounter Details Date Type Department Care Team (Latest Contact Info) Description 11/25/2019 Transcribe Orders Virtual Department 30 [place] [address] Marlene Harden, HARBOR ENGINEER [address] [place], [place] [id number] Atypical chest pain (Primary Dx) Social History [...] Description 03/29/2025 10:15 AM EDT Office Visit [facility] [address] 3rd Floor, [address] [place] [address] Zack Sanchez DO 22 [facility] [address] [place] [address] 05/14/2025 1:00 PM EST Office Visit [facility] [address] 3rd Floor, [address] [place] [address] Rehan Landaverde MD [address] [place] [address] 09/13/2025 9:30 AM EDT Office Visit [facility] All[facility] Critical [facility] 10 [place] [address] Conner Sneed MD [address] [place] [address] [email or web address] Scheduled Procedures Name Priority Associated Diagnoses Date/Ti me 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 IN PLAYGROUND SUPERVISOR Systolic congestive heart failure, unspecified HF [...] documented as of this encounter Care Teams Post Commander Relationship Specialty Start Date End Date Olegario Guy MD [address] [facility] [address] [place] [address] [email or web address] PCP - General Family Medicine 03/28/20 01/09/22 Marlene Harden, HARBOR ENGINEER 70 [place] [address] PCP - General Family Medicine 01/10/22 08/07/24 Cj Meyer DO [address] [place] [address] PCP - General Internal Medicine 08/08/24 Yue Rodrigez RN [address] [place] [address] [email or web address] [facility] Carbide Tool Maker 02/21/22 06/09/23 Jennifer Dash LCSW [address] [place] [address] [email or web address] [facility] Social Work 02/01/23 02/11/23 Yvonne Montana [address] [place] [address] [email or web address] [facility] [place] Community Health Worker 02/25/23 06/09/23 Dennis Temple MBBS [address] [place] [address] [email or web address] Primary Oncologist Hematology and Oncology 04/02/23 Gabriela Barnhart CNP [address] [place] [address] [email or web address] Nurse Practitioner Medical Oncology 01/16/24 documented as of this encounter Additional Source Comments The information contained in this document represents components of the legal health record. It is not the complete legal health record.[facility]
--- OUTSIDE RECORDS SUMMARY | 2025-03-22 05:44 | XMS_ITS | Encounter Summary ---
Author Organization [facility] Address [address] [facility] [address] [place] [address] Phone Care Team Providers Care Diet Supervisor Name Role Phone Marlene Harden NP Primary Care Provider [phone] Yue Rodrigez RN Unavailable Yvonne Montana Unavailable [email or web address] Dennis Temple MBBS Unavailable [phone] Gabriela Barnhart REGIONAL MEDICAL DIRECTOR Unavailable Cj Meyer DO Primary Care Provider [phone] Encounter Details Date Type Department Care Team (Late st Contact Info) Description 02/22/2023 Procedure Pass [facility] Endoscopy Admitting Dept Virtual Department 30 [place] [address] Social History Tobacco Use Types Packs/Day Years [...] Description 03/29/2025 10:15 AM EDT Office Visit [facility] [address], [address] [place] [address] Zack Sanchez DO [address] [place] [address] [place] [address] 05/14/2025 1:00 PM EST Office Visit [facility] [address] [facility] [place] [place], [address] [place] [address] Rehan Landaverde MD [address] [place] [address] 09/13/2025 9:30 AM EDT Office Visit [facility] Critical [facility] 10 [place] [address] Conner Sneed MD [address] [place] [address] [email or web address] Scheduled Procedures Name Priority Associated Diagnoses Date/Ti me 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 IN ASSISTANT PROFESSOR OF GERMAN Systolic congestive heart failure, unspecified HF chronicity [...] documented as of this encounter Care Teams Diet Supervisor Relationship Specialty Start Date End Date Marlene Harden NP 70 [place] [address] PCP - General Family Medicine 01/10/22 08/07/24 Cj Meyer DO 70 [place] [address] PCP - General Internal Medicine 08/08/24 Yue Rodrigez RN [address] [place] [address] iCMP Scheduler Conveyor 02/21/22 06/09/23 Yvonne Montana 10 [place] [address] [facility] Community Health Worker 02/25/23 06/09/23 Dennis Temple MBBS [address] [place] [address] [email or web address] Primary Oncologist Hematology and Oncology 04/02/23 Gabriela Barnhart CNP [address] [place] [address] Nurse Practitioner Medical Oncology 01/16/24 documented as of this encounter Additional Source Comments The information contained in this document represents components of the legal health record. It is not the complete legal health record.[facility]
[2025-03-22 06:26] LABS: Hematocrit 32.1 % (42.0-52.0); Hemoglobin 10.1 g/dl (14.0-18.0); Imm Gran Abs Auto 0.23 X10*3/uL (0.00-0.03); Imm Gran Pct Auto 2.5 % (0.0-0.4); Lymphocytes Absolute Auto 2.1 X10*3/uL (1.2-4.9); Mean Corpuscular HGB Conc 31.5 g/dl (31.0-36.0); Mean Corpuscular Hemoglobin 25.9 pg (27.0-33.0); Mean Corpuscular Volume 82.3 fL (80.0-98.0); NRBC Abs Auto 0.000 X10*3/uL (0.0-0.012); NRBC Pct Auto 0.0 /100WBC (0.0-0.2); Platelet Count 323 X10*3/uL (160-400); Red Blood Count 3.90 X10*6/uL (4.60-5.80); White Blood Count 9.3 X10*3/uL (4.8-10.8)
[2025-03-22 06:56] LABS: Anion Gap 11 (12-20); Blood Urea Nitrogen 18 mg/dL (9-16); Calcium 9.2 mg/dL (8.4-10.2); Carbon Dioxide 31 mmol/L (22-29); Chloride 103 mmol/L (96-108); Estimated Glomerular Filt Rate > 60; Potassium 5.4 mmol/L (3.3-5.1); Sodium 140 mmol/L (135-145)
== END 2025-03-22 05:42 | disposition home or self-care (01) ==
LOC: HO.MMNH1L 05:41
PROVIDERS: Visit Provider Family Medicine
DX: J96.21 Acute and chronic respiratory failure with hypoxia (principal); J44.1 Chronic obstructive pulmonary disease with (acute) exacerbation; E46 Unspecified protein-calorie malnutrition
CPT/HCPCS: 36415; 80048; 85025

== ENCOUNTER 2025-03-24 07:01 | Outpatient (REF) | payer MEDICARE, SELFPAY ==
--- OUTSIDE RECORDS SUMMARY | 2025-03-24 07:04 | XMS_ITS | Encounter Summary ---
Author Organization [facility] Address [address] [place] [address] Phone Care Team Providers Care Management Trainee Program Stores Name Role Phone Temple, Ahmastu Mccann MBBS Unavailable Pack, Gabriela HEADRIG SAWYER Unavailable Cj Meyer DO Primary Care Provider [phone] Encounter Details Date Type Department Care Team (Late st Contact Info) Description 11/07/2024 Procedure Pass [facility], Ct Scan - [address] [address] Social History Tobacco Use Types Packs/Day Years [...] Description 03/29/2025 10:15 AM EDT Office Visit [facility] [address] [place] [address] 3rd Floor, [address] [place] [address] Zack Sanchez, DO 22 [facility] [address] [place] [address] 05/14/2025 1:00 PM EST Office Visit [facility] [address] [place] [address] 3rd Floor, [address] [place] [address] Rehan Landaverde MD 50 [place] [address] 09/13/2025 9:30 AM EDT Office Visit [facility] 10 [place] [address] Conner Sneed MD 10 [facility] 2nd [place] [address] [email or web address] Scheduled Procedures Name Priority Associated Diagnoses Date/Ti me 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 IN OVERHEAD CRANE OPERATOR Systolic congestive heart failure, unspecified HF chronicity documented as of this encounter Visit Diagnoses Not on filedocumented in this encounter Additional Health Concerns Assessment Noted Time PHQ-2 Depression Total Score: 2 03/28/20 22 11:32 AM EDT documented as of this encounter Care Teams Management Trainee Program Stores Relationship Specialty Start Date End Date Cj Meyer DO [address] [place] [address] PCP - General Internal Medicine 08/08/24 Dennis Temple MBBS [email or web address] Primary Oncologist Hematology and Oncology 04/02/23 Gabriela Barnhart CNP 30 [place] [address] [email or web address] Nurse Practitioner Medical Oncology 01/16/24 documented as of this encounter Additional Source Comments The information contained in this document represents components of the legal health record. It is not the complete legal health record.[facility]
--- OUTSIDE RECORDS SUMMARY | 2025-03-24 07:04 | XMS_ITS | Encounter Summary ---
Author Organization [facility] Address [address] [facility] [address] [place] [address] Phone Care Team Providers Care Stereotype Finisher Name Role Phone Marlene Harden NP Primary Care Provider [phone] Dennis Temple MBBS Unavailable [phone] Gabriela Barnhart FLAME ANNEALING MACHINE OPERATOR Unavailable Cj Meyer DO Primary Care Provider [phone] Reason for Referral * MRI/CAT Scan - Closed Specialty Diagnoses / Procedures Referred By Contflorentin t Referred To Contact Radiology Diagnoses Cigarette smoker Procedures CT Chest Lung Cancer Screening Initial Or Annual Marlene Harden NP Phone: tel: Referral ID Status Reason Start Date Expiration Date Visits Re quested Visits Authorized [id number] Closed 10/03/2023 10/02/2024 1 1 Encounter Details Date Type Department Care Team (Latest Contact Info) Description 10/03/2023 Transcribe Orders Virtual Department 30 [place] [address] Marlene Harden NP [address] [place], [place] [phone] Cigarette smoker (Primary Dx) Social History Tobacco [...] Description 03/29/2025 10:15 AM EDT Office Visit [facility] [address] 3rd Floor, [address] [place] [address] Zack Sanchez DO 22 [facility] [address] [place] [address] 05/14/2025 1:00 PM EST Office Visit [facility] [address] 3rd Floor, [address] [place] [address] Rehan Landaverde MD [address] [place] [address] 09/13/2025 9:30 AM EDT Office Visit [facility] Pul[facility], Allergy and Critical Care Medicine 10 [place] [address] Conner Sneed MD [address] [place] [address] [email or web address] Scheduled Procedures Name Priority Associated Diagnoses Date/Ti va 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 IN SPRAY APPLICATOR Systolic congestive heart failure, unspecified HF chronicity [...] clinician's provided indication for this examination in [facility]: Lung Cancer Screening - CURRENT smoker [...] clinician's provided indication for this examination in [facility]:Lung Cancer Screening - CURRENT smoker (20+ [...] categories can be found at:[email or web address] Marlene Harden BOAT CANVAS MAKER INSTALLER IMG CT CHEST Final Result documented in [...] documented as of this encounter Care Teams Stereotype Finisher Relationship Specialty Start Date End Date Marlene Harden NP 70 [place] [address] PCP - General Family Medicine 01/10/22 08/07/24 Cj Meyer DO 70 [place] [address] PCP - General Internal Medicine 08/08/24 Dennis Temple MBBS 70 [place] [address] [email or web address] .[email or web address] Primary Oncologist Hematology and Oncology 04/02/23 Gabriela Barnhart CNP [address] [place] [address] (work) [email or web address] Nurse Practitioner Medical Oncology 01/16/24 documented as of this encounter Additional Source Comments The information contained in this document represents components of the legal health record. It is not the complete legal health record.[facility]
--- OUTSIDE RECORDS SUMMARY | 2025-03-24 07:04 | XMS_ITS | Encounter Summary ---
Author Organization [facility] Address [address] [facility] [address] [place] [address] Phone Care Team Providers Care Gas Specialist Name Role Phone Marlene Harden INTEGRATION DIRECTOR Primary Care Provider Yue Rodrigez RN Unavailable Jennifer Dash UPHOLSTERY TECH Unavailable felisa Yvonne Montana Unavailable Dennis Temple MBBS Unavailable [phone] Gabriela Barnhart JEWELRY ENAMELER Unavailable Cj Meyer DO Primary Care Provider [phone] Encounter Details Date Type Department Care Team (Late st Contact Info) Description 05/14/2022 Transcribe Orders [facility] 30 [place] [address] Marlene Harden NP [address] [place], [place] [phone] Social History Tobacco Use Types Packs/Day Years [...] Upcoming Encounters Date Type Department Care Team ([facility] st Contact Info) Description 03/29/2025 10:15 AM EDT Office Visit [facility] [address] [facility] 3rd Floor, [address] [place] [address] Zack Sanchez DO 22 [facility] [address] [place] [address] 05/14/2025 1:00 PM EST Office Visit [facility] [address] 3rd Floor, [address] [place] [address] Rehan Landaverde MD [address] [place] [address] 09/13/2025 9:30 AM EDT Office Visit [facility] All[facility] Critical [facility] 10 [place] [address] Conner Sneed MD [address] [place] [address] [email or web address] Scheduled Procedures Name Priority Associated Diagnoses Date/Ti me 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 IN FILTER PRESS TENDER HEAD Systolic congestive heart failure, unspecified HF chronicity [...] as of this encounter Care Teams Gas Specialist Relationship Specialty Start Date End Date Marlene Harden NP 70 [place] [address] PCP - General Family Medicine 01/10/22 08/07/24 Cj Meyer DO 70 [place] [address] PCP - General Internal Medicine 08/08/24 Yue Rodrigez RN [address] [place] [address] iC[employer] Linux Kernel Engineer 02/21/22 06/09/23 Jennifer Dash LCSW [address] [place] [address] [facility] 02/01/23 02/11/23 Yvonne Montana [address] [place] [address] [email or web address] [facility] Community Health Worker 02/25/23 06/09/23 Dennis Temple MBBS [address] [place] [address] [email or web address] Primary Oncologist Hematology and Oncology 04/02/23 Gabriela Barnhart CNP [address] [place] [address] Nurse Practitioner Medical Oncology 01/16/24 documented as of this encounter Additional Source Comments The information contained in this document represents components of the legal health record. It is not the complete legal health record.[facility]
--- OUTSIDE RECORDS SUMMARY | 2025-03-24 07:04 | XMS_ITS | Encounter Summary ---
Author Organization [facility] Address [address] [place] [address] Phone Care Team Providers Care Dairy Nutritionist Name Role Phone Marlene Harden NP Primary Care Provider [phone] Yue Rodrigez RN Unavailable Jennifer Dash [employer]CHO[employer] READING TEACHER Unavailable felisa Yvonne Montana Unavailable [email or web address] Dennis Temple MBBS Unavailable [phone] Gabriela Barnhart PERINATAL INSTRUCTOR Unavailable Cj Meyer DO Primary Care Provider [phone] Encounter Details Date Type Department Care Team (Late st Contact Info) Description 03/15/2022 Procedure Pass [facility], Ct Scan - [address] [address] Social History Tobacco Use Types Packs/Day Years [...] Description 03/29/2025 10:15 AM EDT Office Visit [facility] [address] [place] [address] Dr 3rd Floor, [address] [place] [address] Zack Sanchez DO 22 [facility] [address] [place] [address] 05/14/2025 1:00 PM EST Office Visit [facility] [address] 3rd Floor, [address] [place] [address] Rehan Landaverde MD [address] [place] [address] 09/13/2025 9:30 AM EDT Office Visit [facility] All[facility] 10 [place] [address] Conner Sneed MD [address] [place] [address] [email or web address] Scheduled Procedures Name Priority Associated Diagnoses Date/Ti me 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 IN FACILITIES CUSTODIAN Systolic congestive heart failure, unspecified HF chronicity [...] documented as of this encounter Care Teams Dairy Nutritionist Relationship Specialty Start Date End Date Marlene Harden NP 70 [place] [address] PCP - General Family Medicine 01/10/22 08/07/24 Cj Meyer DO 70 [place] [address] PCP - General Internal Medicine 08/08/24 Yue Rodrigez RN [address] [place] [address] [facility] Credit Control Clerk 02/21/22 06/09/23 Jennifer Dash LCSW [address] [place] [address] [email or web address] [facility] Social Work 02/01/23 02/11/23 Yvonne Montana [address] [place] [address] [facility] Community Health Worker 02/25/23 06/09/23 Dennis Temple MBBS [address] [place] [address] [email or web address] Primary Oncologist Hematology and Oncology 04/02/23 Gabriela Barnhart CNP 30 [place] [address] Nurse Practitioner Medical Oncology 01/16/24 documented as of this encounter Additional Source Comments The information contained in this document represents components of the legal health record. It is not the complete legal health record.[facility]
--- OUTSIDE RECORDS SUMMARY | 2025-03-24 07:04 | XMS_ITS | Encounter Summary ---
Author Organization [facility] Address [address] [facility] [place] [facility] [address] [place] [address] Phone Care Team Providers Care Inside Sales Engineer Name Role Phone Dereck Marlene Mook CFA Primary Care Provider [phone] Dennis Temple MBBS Unavailable [phone] Gabriela Barnhart INSURANCE SPECIALIST Unavailable Cj Meyer DO Primary Care Provider [phone] Encounter Details Date Type Department Care Team (Late st Contact Info) Description 07/18/2024 Procedure Pass [facility], [address] [address] Social History Tobacco Use Types Packs/Day Years [...] Description 03/29/2025 10:15 AM EDT Office Visit [facility] [address] [place] [address] 3rd [facility], [address] [place] [address] Zack Sanchez, DO 22 [facility] [address] [place] [address] 05/14/2025 1:00 PM EST Office Visit [facility] 22 [facility] 3rd Floor, [address] [place] [address] Rehan Landaverde MD [address] [place] [address] 09/13/2025 9:30 AM EDT Office Visit [facility] All[facility] 10 [place] [address] Conner Sneed MD [address] [place] [address] 2nd [place] [address] [email or web address] Scheduled Procedures Name Priority Associated Diagnoses Date/Ti me 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 IN DEMURRAGE CLERK Systolic congestive heart failure, unspecified HF chronicity [...] documented as of this encounter Care Teams Inside Sales Engineer Relationship Specialty Start Date End Date Marlene Harden NP 70 [place] [address] PCP - General Family Medicine 01/10/22 08/07/24 Cj Meyer DO [address] [place] [address] PCP - General Internal Medicine 08/08/24 Dennis Temple MBBS [address] [place] [place] [address] [email or web address] .[email or web address] Primary Oncologist Hematology and Oncology 04/02/23 Gabriela Barnhart CNP [address] [place] [address] [email or web address] Nurse Practitioner Medical Oncology 01/16/24 documented as of this encounter Additional Source Comments The information contained in this document represents components of the legal health record. It is not the complete legal health record.[facility]
--- OUTSIDE RECORDS SUMMARY | 2025-03-24 07:04 | XMS_ITS | Encounter Summary ---
Author Organization [facility] Address [address] [facility] [address] [place] [address] Phone Care Team Providers Care Clothing Designer Name Role Phone Marlene Harden NP Primary Care Provider Yue Rodrigez RN Unavailable Jennifer Dash VICE PRESIDENT PHARMACY Unavailable felisa Yvonne Montana Unavailable Dennis Temple MBBS Unavailable [phone] Gabriela Barnhart CLINICAL DATA ASSISTANT Unavailable Cj Meyer DO Primary Care Provider Encounter Details Date Type Department Care Team (Late st Contact Info) Description 05/29/2022 Procedure Pass [facility] Cardiovascular And Interventional Radiology 30 [place] [address] Social History Tobacco Use Types Packs/Day Years [...] Description 03/29/2025 10:15 AM EDT Office Visit [facility] [address] 3rd Floor, [address] [place] [address] Zack Sanchez DO 22 [facility] [address] [place] [address] 05/14/2025 1:00 PM EST Office Visit [facility] [address] 3rd Floor, [address] [place] [address] Rehan Landaverde MD [address] [place] [address] 09/13/2025 9:30 AM EDT Office Visit [facility] All[facility] 10 [place] [address] Conner Sneed MD [address] [place] [address] [email or web address] Scheduled Procedures Name Priority Associated Diagnoses Date/Ti me 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 IN EMT DRIVER Systolic congestive heart failure, unspecified HF chronicity [...] documented as of this encounter Care Teams Clothing Designer Relationship Specialty Start Date End Date Marlene Harden NP 70 [place] [address] PCP - General Family Medicine 01/10/22 08/07/24 Cj Meyer DO 70 [place] [address] PCP - General Internal Medicine 08/08/24 Yue Rodrigez, VENKATA [address] [place] [address] [facility] Cash Applications Associate 02/21/22 06/09/23 Jennifer Dash LCSW [address] [place] [address] [email or web address] [facility] Social Work 02/01/23 02/11/23 Yvonne Montana [address] [place] [address] [email or web address] [facility] Community Health Worker 02/25/23 06/09/23 Dennis Temple MBBS [address] [place] [address] [email or web address] Primary Oncologist Hematology and Oncology 04/02/23 Gabriela Barnhart CNP [address] [place] [address] Nurse Practitioner Medical Oncology 01/16/24 documented as of this encounter Additional Source Comments The information contained in this document represents components of the legal health record. It is not the complete legal health record.[facility]
--- OUTSIDE RECORDS SUMMARY | 2025-03-24 07:04 | XMS_ITS | Encounter Summary ---
Author Organization [facility] Address [address] [place] [address] Phone Care Team Providers Care Nps Name Role Phone Dereck Marlene Delvalle HARD ROCK MINER BLASTING Primary Care Provider Dennis Temple MBBS Unavailable [phone] Gabriela Barnhart DIRECTOR OF HOUSING AND ENERGY SERVICES Unavailable Cj Meyer DO Primary Care Provider [phone] Encounter Details Date Type Department Care Team (Late st Contact Info) Description 07/18/2024 Procedure Pass [facility], [facility] [address] [place] [address] Social History Tobacco Use Types [...] Description 03/29/2025 10:15 AM EDT Office Visit [facility] [address] [place] [address] 3rd [facility], [address] [place] [address] Zack Sanchez, DO [address] [place] [address] [address] [place] [address] 05/14/2025 1:00 PM EST Office Visit [facility] [address] [facility] 3rd Floor, [address] [place] [address] Rehan Landaverde MD [address] [place] [address] 09/13/2025 9:30 AM EDT Office Visit [facility] 10 [place] [address] Conner Sneed MD [address] [place] [address] 2nd [place] [address] [email or web address] Scheduled Procedures Name Priority Associated Diagnoses Date/Ti me 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 IN CASING RUNNING MACHINE TENDER Systolic congestive heart failure, unspecified HF chronicity [...] documented as of this encounter Care Teams Nps Relationship Specialty Start Date End Date Marlene Harden NP 70 [place] [address] PCP - General Family Medicine 01/10/22 08/07/24 Cj Meyer DO 70 [place] [address] PCP - General Internal Medicine 08/08/24 Dennis Temple MBBS [address] [place] [address] [email or web address] .[email or web address] Primary Oncologist Hematology and Oncology 04/02/23 Gabriela Barnhart CNP [address] [place] [address] [email or web address] Nurse Practitioner Medical Oncology 01/16/24 documented as of this encounter Additional Source Comments The information contained in this document represents components of the legal health record. It is not the complete legal health record.[facility]
--- OUTSIDE RECORDS SUMMARY | 2025-03-24 07:04 | XMS_ITS | Encounter Summary ---
Author Organization [facility] Address [address] [facility] [address] [place] [address] Phone Care Team Providers Care Barrel Raiser Helper Name Role Phone Marlene Harden NP Primary Care Provider [phone] Yue Rodrigez RN Unavailable Jennifer Dash VAMP CUT OUT WORKER Unavailable felisa Yvonne Montana Unavailable Dennis Temple MBBS Unavailable [phone] Gabriela Barnhart PERSONALIZED LIVING MANAGER NURSE Unavailable Cj Meyer DO Primary Care Provider [phone] Encounter Details Date Type Department Care Team (Late st Contact Info) Description 06/21/2022 Procedure Pass [facility] Cardiovascular And Interventional Radiology 30 [place] [address] Social History Tobacco Use Types Packs/Day Years [...] Description 03/29/2025 10:15 AM EDT Office Visit [facility] [address] 3rd Floor, [address] [place] [address] Zack Sanchez DO 22 [facility] [address] [place] [address] 05/14/2025 1:00 PM EST Office Visit [facility] [address] 3rd Floor, [address] [place] [address] Rehan Landaverde MD [address] [place] [address] 09/13/2025 9:30 AM EDT Office Visit [facility] 10 [place] [address] Conner Sneed MD [address] [place] [address] [email or web address] Scheduled Procedures Name Priority Associated Diagnoses Date/Ti me 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 IN FLOOR REFINISHER Systolic congestive heart failure, unspecified HF chronicity [...] as of this encounter Care Teams Barrel Raiser Helper Relationship Specialty Start Date End Date Marlene Harden NP 70 [place] [address] PCP - General Family Medicine 01/10/22 08/07/24 Cj Meyer DO 70 [place] [address] PCP - General Internal Medicine 08/08/24 Yue Rodrigez, VENKATA [address] [place] [address] [facility] Wage And Hour Investigator 02/21/22 06/09/23 Jennifer Dash LCSW [address] [place] [address] [email or web address] [facility] Social Work 02/01/23 02/11/23 Yvonne Montana [address] [place] [address] [email or web address] [facility] Community Health Worker 02/25/23 06/09/23 Dennis Temple MBBS [address] [place] [address] [email or web address] Primary Oncologist Hematology and Oncology 04/02/23 Gabriela Barnhart CNP [address] [place] [address] Nurse Practitioner Medical Oncology 01/16/24 documented as of this encounter Additional Source Comments The information contained in this document represents components of the legal health record. It is not the complete legal health record.[facility]
--- OUTSIDE RECORDS SUMMARY | 2025-03-24 07:04 | XMS_ITS | Clinical Summary ---
Author Organization [facility] Address [address] [place] [address] Care Team Providers Care Seat Cover Cutter Name Role Phone Marlene Harden NP Primary Care Provider [phone] Social History Tobacco Use Types Packs/Day Years [...] to complete this topic Insurance [facility] Plan Care Teams Seat Cover Cutter Relationship Specialty Start Date End Date Marlene Harden NP 70 [place] [address] PCP - General Nurse Practitioner 03/05/23
--- OUTSIDE RECORDS SUMMARY | 2025-03-24 07:04 | XMS_ITS | Encounter Summary ---
Author Organization [facility] Address [address] [facility] [address] [place] [address] Phone Care Team Providers Care Grocery Caddy Name Role Phone Marlene Harden NP Primary Care Provider [phone] Yue Rodrigez RN Unavailable Jennifer Dash PEARLER Unavailable [email or web address] Yvonne Montana Unavailable Dennis Temple MBBS Unavailable Gabriela Barnhart PUBLIC SERVICE OFFICER Unavailable Cj Meyer DO Primary Care Provider [phone] Reason for Referral * - Closed Specialty Diagnoses / Procedures Referred By Contflorentin t Referred To Contact Diagnoses Permanent atrial fibrillation Procedures MCT (Mobile Cardiac Telemetry) Zack Sanchez DO Phone: tel: fax: mailto: Referral ID Status Reason Start Date Expiration Date Visits Re quested Visits Authorized [id number] Closed 04/11/2022 04/11/2023 1 1 Encounter Details Date Type Department Care Team (Latest Contact Info) Description 04/11/2022 Ancillary Orders [facility] 22 [facility] 3rd Floor, [address] [place] [address] Zack Sanchez DO [address] [address] [email or web address] Permanent atrial fibrillation Social History [...] Description 03/29/2025 10:15 AM EDT Office Visit [facility] [address] [place] [address], [address] [address] Zack Sanchez DO [address] [address] 05/14/2025 1:00 PM EST Office Visit [facility] [address], [address] [address] Rehan Landaverde MD [address] [place] [address] 09/13/2025 9:30 AM EDT Office Visit [facility] 10 [place] [address] Conner Sneed MD [address] [place] [address] [email or web address] Scheduled Orders Name Type Priority Associated Diagnoses Orde r Schedule MCT (Mobile Cardiac Telemetry) Cardiac Monitors Routine Permanent atrial fibrillation Expected: 02/27/2022, Expires: 05/23/2022 Scheduled Procedures Name Priority Associated Diagnoses Date/Ti me 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 IN PUBLIC ADDRESS SERVICER Systolic congestive heart failure, unspecified HF chronicity [...] documented as of this encounter Care Teams Grocery Caddy Relationship Specialty Start Date End Date Marlene Harden NP 70 [place] [address] PCP - General Family Medicine 01/10/22 08/07/24 Cj Meyer DO 70 [place] [address] PCP - General Internal Medicine 08/08/24 Yue Rodrigez, RN [address] [place] [address] [facility] 02/21/22 06/09/23 Jennifer Dash LCSW [address] [place] [address] Social [facility] 02/01/23 02/11/23 Yvonne Montana [address] [place] [address] [email or web address] Community Health Worker 02/25/23 06/09/23 Dennis Temple MBBS 10 [place] [address] [email or web address] Primary Oncologist Hematology and Oncology 04/02/23 Gabriela Barnhart CNP [address] [place] [address] [email or web address] Nurse Practitioner Medical Oncology 01/16/24 documented as of this encounter Additional Source Comments The information contained in this document represents components of the legal health record. It is not the complete legal health record.[facility]
--- OUTSIDE RECORDS SUMMARY | 2025-03-24 07:04 | XMS_ITS | Encounter Summary ---
Author Organization [facility] Address [address] [place] [address] Phone Care Team Providers Care Data Management Name Role Phone Dereck Marlene Mook NURSING HOME ADMINISTRATOR Primary Care Provider Dennis Temple MBBS Unavailable Gabriela Barnhart MOISTURE CONDITIONER OPERATOR Unavailable Cj Meyer DO Primary Care Provider [phone] Encounter Details Date Type Department Care Team (Late st Contact Info) Description 10/03/2023 Procedure Pass [facility], Ct Scan - [address] [address] Social History Tobacco Use Types Packs/Day Years [...] Description 03/29/2025 10:15 AM EDT Office Visit [facility] [address], [address] [address] Zack Sanchez DO [address] [place] [address] 05/14/2025 1:00 PM EST Office Visit [facility] [address], [address] [address] Rehan Landaverde MD [address] [place] [address] 09/13/2025 9:30 AM EDT Office Visit [facility] 10 [place] [address] Conner Sneed MD [address] [place] [address] [email or web address] Scheduled Procedures Name Priority Associated Diagnoses Date/Ti me 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 IN SIMULATION SPECIALIST Systolic congestive heart failure, unspecified HF [...] documented as of this encounter Care Teams Data Management Relationship Specialty Start Date End Date Marlene Harden NP 70 [place] [address] PCP - General Family Medicine 01/10/22 08/07/24 Cj Meyer DO 70 [place] [address] PCP - General Internal Medicine 08/08/24 Dennis Temple MBBS 70 [place] [address] [email or web address] Primary Oncologist Hematology and Oncology 04/02/23 Gabriela Barnhart CNP [address] [place] [address] [email or web address] Nurse Practitioner Medical Oncology 01/16/24 documented as of this encounter Additional Source Comments The information contained in this document represents components of the legal health record. It is not the complete legal health record.[facility]
--- OUTSIDE RECORDS SUMMARY | 2025-03-24 07:04 | XMS_ITS | Encounter Summary ---
Author Organization [facility] Address [address] [place] [address] Phone Care Team Providers Care Milk Truck Driver Name Role Phone DereckMarlene Mook ASSISTANT BOILER OPERATOR Primary Care Provider [phone] Dennis Temple MBBS Unavailable Gabriela Barnhart SEISMIC PLOTTER Unavailable Cj Meyer DO Primary Care Provider Encounter Details Date Type Department Care Team (Late st Contact Info) Description 07/17/2024 Procedure Pass [facility] [address] [place] [address] Social History Tobacco Use Types Packs/Day Years [...] 07/17/2024 1:48 PM Sofy Harry, VENKATA * Cloud Suicide Severity Rating Scale (Screener/Recent Self-Report) Question [...] Description 03/29/2025 10:15 AM EDT Office Visit [facility] [address] [place] [address] 3rd [facility], [address] [place] [address] Zack Sanchez DO 22 [facility] [address] [place] [address] 05/14/2025 1:00 PM EST Office Visit [facility] [address] 3rd [facility], [address] [place] [address] Rehan Landaverde MD [address] [place] [address] 09/13/2025 9:30 AM EDT Office Visit [facility] 10 [place] [address] Conner Sneed MD [address] [place] [address] [email or web address] Scheduled Procedures Name Priority Associated Diagnoses Date/Ti sd 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 IN LIGHT INDUSTRIAL Systolic congestive heart failure, unspecified HF chronicity [...] documented as of this encounter Care Teams Milk Truck Driver Relationship Specialty Start Date End Date Marlene Harden NP 70 [place] [address] PCP - General Family Medicine 01/10/22 08/07/24 Cj Meyer DO 70 [place] [address] PCP - General Internal Medicine 08/08/24 Dennis Temple MBBS 70 [place] [address] [email or web address] .[email or web address] Primary Oncologist Hematology and Oncology 04/02/23 Gabriela Barnhart CNP 30 [place] [address] [email or web address] Nurse Practitioner Medical Oncology 01/16/24 documented as of this encounter Additional Source Comments The information contained in this document represents components of the legal health record. It is not the complete legal health record.[facility]
--- OUTSIDE RECORDS SUMMARY | 2025-03-24 07:04 | XMS_ITS | Encounter Summary ---
Author Organization [facility] Address [address] [facility] [address] [place] [address] Phone Care Team Providers Care Drag Seiner Name Role Phone Marlene Harden TRANSIT MIXER DRIVER Primary Care Provider [phone] Yue Rodrigez RN Unavailable Jennifer Dash SHIPFITTER APPRENTICE Unavailable felisa Yvonne Montana Unavailable Dennis Temple MBBS Unavailable [phone] Gabriela Barnhart INSPECTOR TUBES Unavailable Cj Meyer DO Primary Care Provider [phone] Encounter Details Date Type Department Care Team (Late st Contact Info) Description 09/03/2022 Procedure Pass [facility], Ct Scan - [address] [address] Social History Tobacco Use Types Packs/Day Years [...] Upcoming Encounters Date Type Department Care Team ([facility] st Contact Info) Description 03/29/2025 10:15 AM EDT Office Visit [facility] 22 [facility] 3rd Floor, [address] [place] [address] Zack Sanchze DO 22 [facility] [address] [place] [address] 05/14/2025 1:00 PM EST Office Visit [facility] [address] 3rd [facility], [address] [place] [address] Rehan Landaverde MD [address] [place] [address] 09/13/2025 9:30 AM EDT Office Visit [facility] 10 [place] [address] Conner Sneed MD [address] [place] [address] [email or web address] Scheduled Procedures Name Priority Associated Diagnoses Date/Ti me 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 IN SUPERVISOR MOLD CONSTRUCTION Systolic congestive heart failure, unspecified HF chronicity [...] documented as of this encounter Care Teams Drag Seiner Relationship Specialty Start Date End Date Marlene Harden NP 70 [place] [address] PCP - General Family Medicine 01/10/22 08/07/24 Cj Meyer DO 70 [place] [address] PCP - General Internal Medicine 08/08/24 Yue Rodrigez RN [address] [place] [address] [facility] Ore Bridge Operator 02/21/22 06/09/23 Jennifer Dash LCSW [address] [place] [address] [facility] Social Work 02/01/23 02/11/23 Yvonne Montana [address] [place] [address] [facility] Community Health Worker 02/25/23 06/09/23 Dennis Temple MBBS [address] [place] [address] [email or web address] Primary Oncologist Hematology and Oncology 04/02/23 Gabriela Barnhart CNP [address] [place] [address] Nurse Practitioner Medical Oncology 01/16/24 documented as of this encounter Additional Source Comments The information contained in this document represents components of the legal health record. It is not the complete legal health record.[facility]
--- OUTSIDE RECORDS SUMMARY | 2025-03-24 07:04 | XMS_ITS | Encounter Summary ---
Author Organization [facility] Address [address] [place] [address] Phone Care Team Providers Care Optical Manufacturing Technician Name Role Phone WindyAlexanderstu Mccann MBBS Unavailable Pack, Gabriela FISH STRINGER ASSEMBLER Unavailable Cj Meyer DO Primary Care Provider [phone] Encounter Details Date Type Department Care Team (Late st Contact Info) Description 08/08/2024 Procedure Pass [facility], Ct Scan - [facility] 30 [place] [address] Social History Tobacco Use Types Packs/Day Years [...] 3:25 PM Maria E Timmons RN * [place] Suicide Severity Rating Scale (Screener/Recent Self-Report) Question [...] Upcoming Encounters Date Type Department Care Team ([facility] st Contact Info) Description 03/29/2025 10:15 AM EDT Office Visit [facility] [address], [address] [place] [address] Zack Sanchez DO [address] [place] [address] [place] [address] 05/14/2025 1:00 PM EST Office Visit [address], [address] [place] [address] Rehan Landaverde MD [address] [place] [address] 09/13/2025 9:30 AM EDT Office Visit [facility] 10 [place] [address] Conner Sneed MD [address] [place] [address] [email or web address] Scheduled Procedures Name Priority Associated Diagnoses Date/Ti me 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 IN SILK SCREENER Systolic congestive heart failure, unspecified HF chronicity [...] documented as of this encounter Care Teams Optical Manufacturing Technician Relationship Specialty Start Date End Date Cj Meyer DO [address] [place] [address] PCP - General Internal Medicine 08/08/24 Dennis Temple MBBS [email or web address] .[email or web address] Primary Oncologist Hematology and Oncology 04/02/23 Gabriela Barnhart CNP [address] [place] [address] [email or web address] Nurse Practitioner Medical Oncology 01/16/24 documented as of this encounter Additional Source Comments The information contained in this document represents components of the legal health record. It is not the complete legal health record.[facility]
--- OUTSIDE RECORDS SUMMARY | 2025-03-24 07:04 | XMS_ITS | Encounter Summary ---
Author Organization [facility] Address [address] [place] [address] Phone Care Team Providers Care Finance Teacher Name Role Phone Dereck Marlene Mook BLOOD BANK TECHNICIAN Primary Care Provider Dennis Temple MBBS Unavailable [phone] Gabriela Barnhart CITY LIBRARY DIRECTOR Unavailable Cj Meyer DO Primary Care Provider Encounter Details Date Type Department Care Team (Late st Contact Info) Description 07/18/2024 Procedure Pass [facility], Ct Scan - [address] [address] Social History Tobacco Use Types Packs/Day Years [...] Description 03/29/2025 10:15 AM EDT Office Visit [facility] [address] [place] [address] 3rd [facility], [address] [place] [address] Zack Sanchez, DO [address] [facility] [address] [place] [address] 05/14/2025 1:00 PM EST Office Visit [facility] 22 [facility] 3rd Floor, [address] [place] [address] Rehan Landaverde MD [address] [place] [address] 09/13/2025 9:30 AM EDT Office Visit [facility] 10 [place] [address] Conner Sneed MD [address] [place] [address] 2nd [place] [address] [email or web address] Scheduled Procedures Name Priority Associated Diagnoses Date/Ti me 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 IN REFERENCE INVESTIGATOR Systolic congestive heart failure, unspecified HF chronicity [...] documented as of this encounter Care Teams Finance Teacher Relationship Specialty Start Date End Date Marlene Harden NP 70 [place] [address] PCP - General Family Medicine 01/10/22 08/07/24 Cj Meyer DO 70 [place] [address] PCP - General Internal Medicine 08/08/24 Dennis Temple MBBS [address] [place] [address] [email or web address] Primary Oncologist Hematology and Oncology 04/02/23 Gabriela Barnhart CNP [address] [place] [address] [email or web address] Nurse Practitioner Medical Oncology 01/16/24 documented as of this encounter Additional Source Comments The information contained in this document represents components of the legal health record. It is not the complete legal health record.[facility]
--- OUTSIDE RECORDS SUMMARY | 2025-03-24 07:05 | XMS_ITS | Encounter Summary ---
Author Organization [facility] Address [address] [facility] [address] [place] [address] Phone Care Team Providers Care Engineering Technical Writer Name Role Phone Olegario Guy MD Primary Care Provider Marlene Harden NP Primary Care Provider [phone] Yue Rodrigez RN Unavailable Jennifer Dash BOTTLE HOUSE PUMPER Unavailable [email or web address] Yvonne Montana Unavailable [email or web address] Dennis Temple MBBS Unavailable Gabriela Barnhart SLUBBER TENDER Unavailable Cj Meyer DO Primary Care Provider [phone] Reason for Referral * MRI/CAT Scan - Closed Specialty Diagnoses / Procedures Referred By Contflorentin t Referred To Contact Radiology Diagnoses Abnormal chest x-ray Procedures CT Chest Marlene Harden NP Phone: tel: Referral ID Status Reason Start Date Expiration Date Visits Re quested Visits Authorized [id number] Closed 01/05/2022 01/05/2023 1 1 Encounter Details Date Type Department Care Team (Latest Contact Info) Description 01/05/2022 Transcribe Orders Virtual Department [address] [place] [address] Marlene Harden NP [address] [place] [address] Abnormal chest x-ray (Primary Dx) Social History [...] Description 03/29/2025 10:15 AM EDT Office Visit [facility] [address] 3rd [facility], [address] [place] [address] Zack Sanchez DO [address] [facility] [address] [place] [address] 05/14/2025 1:00 PM EST Office Visit [address] 3rd Floor, [address] [place] [address] Rehan Landaverde MD [address] [place] [address] 09/13/2025 9:30 AM EDT Office Visit [facility] [address] [place] [address] Conner Sneed MD [address] [place] [address] [email or web address] Scheduled Procedures Name Priority Associated Diagnoses Date/Ti me 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 IN ORACLE BPM CONSULTANT Systolic congestive heart failure, unspecified HF [...] CT chest in 6-8 weeks. Marlene Harden JAVA MOBILE DEVELOPER IMG CT CHEST Final Result documented in [...] as of this encounter Care Teams Engineering Technical Writer Relationship Specialty Start Date End Date Olegario Guy MD [address] [place] [address] [address] [place] [address] [email or web address] PCP - General Family Medicine 03/28/20 01/09/22 Marlene Harden NP 70 [place] [address] PCP - General Family Medicine 01/10/22 08/07/24 Cj Meyer DO 70 [place] [address] PCP - General Internal Medicine 08/08/24 Yue Rodrigez, RN [address] [place] [address] [email or web address] [facility] Art Gallery Director 02/21/22 06/09/23 Jennifer Dash LCSW [address] [place] [address] [email or web address] [facility] Social Work 02/01/23 02/11/23 Yvonne Montana [address] [place] [address] [email or web address] [facility] Community Health Worker 02/25/23 06/09/23 Dennis Temple MBBS [address] [place] [address] [email or web address] Primary Oncologist Hematology and Oncology 04/02/23 Gabriela Barnhart CNP [address] [place] [address] [email or web address] Nurse Practitioner Medical Oncology 01/16/24 documented as of this encounter Additional Source Comments The information contained in this document represents components of the legal health record. It is not the complete legal health record.[facility]
--- OUTSIDE RECORDS SUMMARY | 2025-03-24 07:05 | XMS_ITS | Encounter Summary ---
Author Organization [facility] Address [address] [facility] [address] [place] [address] Phone Care Team Providers Care Support Specialist Name Role Phone Marlene Harden NP Primary Care Provider [phone] Yue Rodrigez RN Unavailable Yvonne Montana Unavailable [email or web address] Dennis Temple MBBS Unavailable [phone] Gabriela Barnhart GLOBAL HUMAN RESOURCES DIRECTOR Unavailable Cj Meyer DO Primary Care Provider [phone] Encounter Details Date Type Department Care Team (Late st Contact Info) Description 02/22/2023 Procedure Pass [facility] Endoscopy Admitting Dept Virtual Department 30 [place] [address] Social History Tobacco Use Types Packs/Day Years [...] Description 03/29/2025 10:15 AM EDT Office Visit [facility] [address], [address] [place] [address] Zack Sanchez DO [address] [place] [address] [place] [address] 05/14/2025 1:00 PM EST Office Visit [facility] [address] 3rd [facility], [address] [place] [address] Rehan Landaverde MD [address] [place] [address] 09/13/2025 9:30 AM EDT Office Visit [facility] 10 [place] [address] Conner Sneed MD [address] [place] [address] [email or web address] Scheduled Procedures Name Priority Associated Diagnoses Date/Ti me 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 IN EMBALMER APPRENTICE Systolic congestive heart failure, unspecified HF [...] documented as of this encounter Care Teams Support Specialist Relationship Specialty Start Date End Date Marlene Harden NP 70 [place] [address] PCP - General Family Medicine 01/10/22 08/07/24 Cj Meyer DO 70 [place] [address] PCP - General Internal Medicine 08/08/24 Yue Rodrigez RN [address] [place] [address] iCMP Director Of Coding 02/21/22 06/09/23 Yvonne Montana 10 [place] [address] [facility] [place] [facility] Community Health Worker 02/25/23 06/09/23 Dennis Temple MBBS [address] [place] [address] [email or web address] Primary Oncologist Hematology and Oncology 04/02/23 Gabriela Barnhart CNP [address] [place] [address] Nurse Practitioner Medical Oncology 01/16/24 documented as of this encounter Additional Source Comments The information contained in this document represents components of the legal health record. It is not the complete legal health record.[facility]
--- OUTSIDE RECORDS SUMMARY | 2025-03-24 07:05 | XMS_ITS | Encounter Summary ---
Author Organization [facility] Address [address] [place] [address] Phone Care Team Providers Care It Technical Specialist Name Role Phone Marlene Harden TREASURY ACCOUNTANT Primary Care Provider [phone] Yue Rodrigez RN Unavailable Yvonne Montana Unavailable [email or web address] Dennis Temple MBBS Unavailable [phone] Gabriela Barnhart FIELD INSTALLATION TECHNICIAN Unavailable Cj Meyer DO Primary Care Provider [phone] Encounter Details Date Type Department Care Team (Late st Contact Info) Description 03/03/2023 Procedure Pass [facility], Ct Scan - [address] [address] Social History Tobacco Use Types Packs/Day Years [...] 3:07 PM EDT Alycia Mahajan, VENKATA * [place] Suicide Severity Rating Scale (Screener/Recent Self-Report) Question [...] Description 03/29/2025 10:15 AM EDT Office Visit [facility] [address] [place] [address] [place] [address], [address] [place] [address] Zack Sanchez DO [address] [place] [address] [place] [address] 05/14/2025 1:00 PM EST Office Visit [facility] [address] 3rd [facility], [address] [place] [address] Rehan Landaverde MD [address] [place] [address] 09/13/2025 9:30 AM EDT Office Visit [facility] 10 [facility] [place] [address] Conner Sneed MD 10 [facility] 2nd [place] [address] [email or web address] Scheduled Procedures Name Priority Associated Diagnoses Date/Ti me 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 IN IT PROGRAM ENGAGEMENT DIRECTOR Systolic congestive heart failure, unspecified HF [...] documented as of this encounter Care Teams It Technical Specialist Relationship Specialty Start Date End Date Marlene Harden NP 70 [place] [address] PCP - General Family Medicine 01/10/22 08/07/24 Cj Meyer DO 70 [place] [address] PCP - General Internal Medicine 08/08/24 Yue Rodrigez, VENKATA [address] [place] [address] iCMP Lung Puller 02/21/22 06/09/23 Yvonne Montana [address] [place] [address] [facility] Community Health Worker 02/25/23 06/09/23 Dennis Temple MBBS [address] [place] [address] [email or web address] Primary Oncologist Hematology and Oncology 04/02/23 Gabriela Barnhart CNP [address] [place] [address] [email or web address] Nurse Practitioner Medical Oncology 01/16/24 documented as of this encounter Additional Source Comments The information contained in this document represents components of the legal health record. It is not the complete legal health record.[facility]
--- OUTSIDE RECORDS SUMMARY | 2025-03-24 07:05 | XMS_ITS | Encounter Summary ---
Author Organization [facility] Address [address] [facility] [address] [place] [address] Phone Care Team Providers Care Education Analyst Name Role Phone Temple, Ahmastu Mccann MBBS Unavailable Pack, Gabriela ETHYLBENZENE OXIDIZER Unavailable Cj Meyer DO Primary Care Provider [phone] Encounter Details Date Type Department Care Team (Late st Contact Info) Description 12/09/2024 Procedure Pass [facility], Ct Scan - [address] [address] Social History Tobacco Use Types Packs/Day Years [...] Description 03/29/2025 10:15 AM EDT Office Visit [facility] [address] [place] [address] 3rd Floor, [address] [place] [address] Zack Sanchez, DO 22 [facility] [address] [place] [address] 05/14/2025 1:00 PM EST Office Visit [facility] [address] [place] [address] 3rd Floor, [address] [place] [address] Rehan Landaverde MD 50 [place] [address] 09/13/2025 9:30 AM EDT Office Visit [facility] 10 [facility] [place] [address] Conner Sneed MD 10 [facility] 2nd [place] [address] [email or web address] Scheduled Procedures Name Priority Associated Diagnoses Date/Ti me 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 IN CUSTOMER ENERGY SPECIALIST Systolic congestive heart failure, unspecified HF chronicity documented as of this encounter Visit Diagnoses Not on filedocumented in this encounter Additional Health Concerns Assessment Noted Time PHQ-2 Depression Total Score: 2 03/28/20 22 11:32 AM EDT documented as of this encounter Care Teams Education Analyst Relationship Specialty Start Date End Date Cj Meyer DO [address] [place] [address] PCP - General Internal Medicine 08/08/24 Dennis Temple MBBS [email or web address] Primary Oncologist Hematology and Oncology 04/02/23 Gabriela Barnhart CNP 30 [place] [address] [email or web address] Nurse Practitioner Medical Oncology 01/16/24 documented as of this encounter Additional Source Comments The information contained in this document represents components of the legal health record. It is not the complete legal health record.[facility]
--- OUTSIDE RECORDS SUMMARY | 2025-03-24 07:05 | XMS_ITS | Encounter Summary ---
Author Organization [facility] Address [address] [facility] [address] [place] [address] Phone Care Team Providers Care Gathering Machine Feeder Name Role Phone Marlene Harden KITCHEN HELPER Primary Care Provider [phone] Yue Rodrigez RN Unavailable Jennifer Dash CLEANER WINDOW Unavailable felisa Yvonne Montana Unavailable Dennis Temple MBBS Unavailable [phone] Gabriela Barnhart FILTER PRESS TENDER Unavailable Cj Meyer DO Primary Care Provider [phone] Encounter Details Date Type Department Care Team (Late st Contact Info) Description 02/20/2022 Procedure Pass [facility] [address] [place] [address] Social History Tobacco Use Types Packs/Day [...] 11:20 AM EDT Elizabeth Le RN * [place] Suicide Severity Rating Scale (Screener/Recent Self-Report) Question [...] Upcoming Encounters Date Type Department Care Team ([facility] st Contact Info) Description 03/29/2025 10:15 AM EDT Office Visit [facility] [address] 3rd [facility], [address] [place] [address] Zack Sanchez DO [address] [place] [address] [place] [address] 05/14/2025 1:00 PM EST Office Visit [address], [address] [place] [address] Rehan Landaverde MD [address] [place] [address] 09/13/2025 9:30 AM EDT Office Visit [facility] 10 [place] [address] Conner Sneed MD [address] [place] [address] [email or web address] Scheduled Procedures Name Priority Associated Diagnoses Date/Ti me 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 IN SHAREPOINT SOLUTIONS ARCHITECT Systolic congestive heart failure, unspecified [...] documented as of this encounter Care Teams Gathering Machine Feeder Relationship Specialty Start Date End Date Marlene Harden NP 70 [place] [address] PCP - General Family Medicine 01/10/22 08/07/24 Cj Meyer DO [address] [place] [address] PCP - General Internal Medicine 08/08/24 Yue Rodrigez, VENKATA [address] [place] [address] [email or web address] [facility] Assistant Public Defender 02/21/22 06/09/23 Jennifer Dash LCSW [address] [place] [address] [email or web address] [facility] Social Work 02/01/23 02/11/23 Yvonne Montana [address] [place] [address] [email or web address] [facility] Community Health Worker 02/25/23 06/09/23 Dennis Temple MBBS [address] [place] [address] [email or web address] Primary Oncologist Hematology and Oncology 04/02/23 Gabriela Barnhart CNP [address] [place] [address] [email or web address] Nurse Practitioner Medical Oncology 01/16/24 documented as of this encounter Additional Source Comments The information contained in this document represents components of the legal health record. It is not the complete legal health record.[facility]
--- OUTSIDE RECORDS SUMMARY | 2025-03-24 07:05 | XMS_ITS | Encounter Summary ---
Author Organization [facility] Address [address] [facility] [address] [place] [address] Phone Care Team Providers Care Hand Rounder Name Role Phone Olegario Guy MD Primary Care Provider Marlene Harden NP Primary Care Provider Yue Rodrigez RN Unavailable Jennifer Dash PENCILS WASHER Unavailable ndelabar Yvonne Montana Unavailable Dennis Temple MBBS Unavailable Gabriela Barnhart ADVERTISING SALES REPRESENTATIVE Unavailable Cj Meyer DO Primary Care Provider [phone] Encounter Details Date Type Department Care Team (Latest Contact Info) Description 03/28/2020 Transcribe Orders Virtual Department 30 [place] [address] Jie Wu NP [address] [place] [phone] [email or web address] Neck pain (Primary Dx) Social History Tobacco [...] Description 03/29/2025 10:15 AM EDT Office Visit [facility] [address] 3rd Floor, [address] [place] [address] Zack Sanchez DO 22 [facility] [address] [place] [address] 05/14/2025 1:00 PM EST Office Visit [facility] [address] 3rd Floor, [address] [place] [address] Rehan Landaverde MD [address] [place] [address] 09/13/2025 9:30 AM EDT Office Visit [facility] 10 [place] [address] Conner Sneed MD [address] [place] [address] [email or web address] Scheduled Procedures Name Priority Associated Diagnoses Date/Ti me 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 IN PSYCHIATRIC NURSE Systolic congestive heart failure, unspecified HF chronicity [...] stable. No evidence of instability. POS - [id number] Narrative 04/01/2020 9:03 AM EDT HISTORY: Left [...] is stable. No evidence ofinstability. POS - [id number] Jie Wu NP IMG XR SPINE Final [...] documented as of this encounter Care Teams Hand Rounder Relationship Specialty Start Date End Date Olegario Guy MD 230 [facility] [address]160 [place] [phone] [email or web address] PCP - General Family Medicine 03/28/20 01/09/22 Marlene Harden GRAIN BROKER 70 [place] [address] PCP - General Family Medicine 01/10/22 08/07/24 Cj Meyer DO [address] [place] [address] PCP - General Internal Medicine 08/08/24 Yue Rodrigez, VENKATA [address] [place] [address] [email or web address] [facility] Refractory Products Supervisor 02/21/22 06/09/23 Jennifer Dash LCSW [address] [place] [address] [email or web address] [facility] Social Work 02/01/23 02/11/23 Yvonne Montana [address] [place] [address] [email or web address] [facility] Community Health Worker 02/25/23 06/09/23 Dennis Temple MBBS [address] [place] [address] [email or web address] Primary Oncologist Hematology and Oncology 04/02/23 Gabriela Barnhart CNP [address] [place] [address] Nurse Practitioner Medical Oncology 01/16/24 documented as of this encounter Additional Source Comments The information contained in this document represents components of the legal health record. It is not the complete legal health record.[facility]
--- OUTSIDE RECORDS SUMMARY | 2025-03-24 07:05 | XMS_ITS | Encounter Summary ---
Author Organization [facility] Address [address] [facility] [address] [place] [address] Phone Care Team Providers Care Venture Capitalist Name Role Phone Olegario Guy MD Primary Care Provider [phone] Marlene Harden NP Primary Care Provider [phone] Yue Rodrigez RN Unavailable Jennifer Dash SOAKER HELPER Unavailable ndelabar Yvonne Montana Unavailable Dennis Temple MBBS Unavailable Gabriela Barnhart FITTER AND TURNER Unavailable Cj Meyer DO Primary Care Provider [phone] Reason for Referral * MRI/CAT Scan - Closed Specialty Diagnoses / Procedures Referred By Contac t Referred To Contact Radiology Diagnoses Cervical radiculopathy Procedures MRI Cervical Spine Jie Wu NP Phone: tel: fax: [email or web address] Referral ID Status Reason Start Date Expiration Date Visits Re quested Visits Authorized [id number] Closed 03/21/2020 04/04/2020 1 1 Encounter Details Date Type Department Care Team (Latest Contact Info) Description 03/28/2020 Transcribe Orders [address] [address] Jie Wu NP [address] [place] [phone] [email or web address] Cervical radiculopathy (Primary Dx) Social History Tobacco [...] Upcoming Encounters Date Type Department Care Team ([facility] st Contact Info) Description 03/29/2025 10:15 AM EDT Office Visit [facility] [address] [place] [address], [address] [address] Zack Sanchez DO [address] [place] [address] 05/14/2025 1:00 PM EST Office Visit [facility] [address], [address] [address] Rehan Landaverde MD [address] [place] [address] 09/13/2025 9:30 AM EDT Office Visit [facility] 10 [place] [address] Conner Sneed MD [address] [place] [address] [email or web address] Scheduled Procedures Name Priority Associated Diagnoses Date/Ti me 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 IN FOAM DISPENSER Systolic congestive heart failure, unspecified HF chronicity [...] documented as of this encounter Care Teams Venture Capitalist Relationship Specialty Start Date End Date Olegario Guy MD [address] [place] [address] [address] [place] [phone] [email or web address] PCP - General Family Medicine 03/28/20 01/09/22 Marlene Harden NP [address] [place] [address] PCP - General Family Medicine 01/10/22 08/07/24 Cj Meyer DO [address] [place] [address] PCP - General Internal Medicine 08/08/24 Yue Rodrigez, RN [address] [place] [address] [facility] See Wheeler 02/21/22 06/09/23 Jennifer Dash LCSW [address] [place] [address] [facility] Social Work 02/01/23 02/11/23 Yvonne Montana [address] [place] [address] [email or web address] [facility] Community Health Worker 02/25/23 06/09/23 Dennis Temple MBBS [address] [place] [address] [email or web address] Primary Oncologist Hematology and Oncology 04/02/23 Gabriela Barnhart CNP [address] [place] [address] [email or web address] Nurse Practitioner Medical Oncology 01/16/24 documented as of this encounter Additional Source Comments The information contained in this document represents components of the legal health record. It is not the complete legal health record.[facility]
--- OUTSIDE RECORDS SUMMARY | 2025-03-24 07:05 | XMS_ITS | Encounter Summary ---
Author Organization [facility] Address [address] [facility] [address] [place] [address] Phone Care Team Providers Care Care Team Coordinator Scheduler Name Role Phone Olegario Guy MD Primary Care Provider [phone] Marlene Harden PRICING ASSOCIATE Primary Care Provider Yue Rodrigez RN Unavailable Jennifer Dash TASSEL MAKER Unavailable [email or web address] Yvonne Montana Unavailable [email or web address] Dennis Temple MBBS Unavailable [phone] Gabriela Barnhart GROCERY DEPARTMENT MANAGER Unavailable Cj Meyer DO Primary Care Provider [phone] Encounter Details Date Type Department Care Team (Latest Contact Info) Description 01/02/2022 Transcribe Orders Virtual Department 30 [place] [address] Marlene Harden, CAM [address] [place], [place] [id number] Shortness of breath (Primary Dx); Dyspnea, unspecified [...] Description 03/29/2025 10:15 AM EDT Office Visit [facility] [address] 3rd Floor, [address] [place] [address] Zack Sanchez DO 22 [facility] [address] [place] [address] 05/14/2025 1:00 PM EST Office Visit [facility] [address] 3rd Floor, [address] [place] [address] Rehan Landaverde MD [address] [place] [address] 09/13/2025 9:30 AM EDT Office Visit [facility] Pulmonary, Allergy and Critical Care Medicine 10 [place] [address] Conner Sneed MD [address] [place] [address] [email or web address] Scheduled Procedures Name Priority Associated Diagnoses Date/Ti me 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 IN SAFETY TECHNICIAN Systolic congestive heart failure, unspecified HF chronicity documented as of this encounter Results * Pulmonary Function Test Reason for Exam: Dyspnea/Shortness of Breath; Type of PFT Test: Spirometry with bronchodilator, DLCO, Lung Volumes; Performing Location: [facility] (05/21/2022 3:49 PM EST) FEV1 1.08 [...] documented as of this encounter Care Teams Care Team Coordinator Scheduler Relationship Specialty Start Date End Date Olegario Guy MD [address] [facility] [address] [place] [address] [email or web address] PCP - General Family Medicine 03/28/20 01/09/22 Marlene Harden, PRICING ASSOCIATE 70 [place] [address] PCP - General Family Medicine 01/10/22 08/07/24 Cj Meyer DO [address] [place] [address] PCP - General Internal Medicine 08/08/24 Yue Rodrigez, VENKATA [address] [place] [address] [facility] Proposal Specialist 02/21/22 06/09/23 Jennifer Dash LCSW [address] [place] [address] [facility] Social Work 02/01/23 02/11/23 Yvonne Montana [address] [place] [address] [email or web address] [facility] Community Health Worker 02/25/23 06/09/23 Dennis Temple MBBS [address] [place] [address] [email or web address] Primary Oncologist Hematology and Oncology 04/02/23 Gabriela Barnhart CNP [address] [place] [address] Nurse Practitioner Medical Oncology 01/16/24 documented as of this encounter Additional Source Comments The information contained in this document represents components of the legal health record. It is not the complete legal health record.[facility]
--- OUTSIDE RECORDS SUMMARY | 2025-03-24 07:05 | XMS_ITS | Encounter Summary ---
Author Organization [facility] Address [address] [facility] [address] [facility] [address] [place] [address] Phone Care Team Providers Care Computer Lab Aide Name Role Phone Cassie Hardensy Mook CYLINDER DIE MACHINE HELPER Primary Care Provider Yue Rodrigez RN Unavailable Jennifer Dash DISTRIBUTION OPERATIONS MANAGER Unavailable felisa Yvonne Montana Unavailable Dennis Temple MBBS Unavailable [phone] Gabriela Barnhart OFFSET PLATEMAKER Unavailable Cj Meyer DO Primary Care Provider [phone] Encounter Details Date Type Department Care Team (Late st Contact Info) Description 12/13/2022 Procedure Pass [facility], Ct Scan - [address] [address] Social History Tobacco Use Types Packs/Day Years [...] Description 03/29/2025 10:15 AM EDT Office Visit [facility] [address] 3rd [facility], [address] [place] [address] Zack Sanchez DO [address] [place] [address] [place] [address] 05/14/2025 1:00 PM EST Office Visit [facility] [address]rd [facility], [address] [place] [address] Rehan Landaverde MD [address] [place] [address] 09/13/2025 9:30 AM EDT Office Visit [facility] Pulmonary, Allergy and Critical Care Medicine 10 [place] [address] Conner Sneed MD [address] [place] [address] [email or web address] Scheduled Procedures Name Priority Associated Diagnoses Date/Ti me 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 IN REPAIRER HAIRSPRING Systolic congestive heart failure, unspecified HF chronicity [...] as of this encounter Care Teams Computer Lab Aide Relationship Specialty Start Date End Date Marlene Harden NP 70 [place] [address] PCP - General Family Medicine 01/10/22 08/07/24 Cj Meyer DO 70 [place] [address] PCP - General Internal Medicine 08/08/24 Yue Rodrigez, VENKATA [address] [place] [address] [email or web address] [facility] Tug Hand 02/21/22 06/09/23 Jennifer Dash LCSW [address] [place] [address] [facility] Social Work 02/01/23 02/11/23 Yvonne Montana [address] [place] [address] [facility] Community Health Worker 02/25/23 06/09/23 Dennis Temple MBBS [address] [place] [address] [email or web address] Primary Oncologist Hematology and Oncology 04/02/23 Gabriela Barnhart CNP [address] [place] [address] [email or web address] Nurse Practitioner Medical Oncology 01/16/24 documented as of this encounter Additional Source Comments The information contained in this document represents components of the legal health record. It is not the complete legal health record.[facility]
--- OUTSIDE RECORDS SUMMARY | 2025-03-24 07:05 | XMS_ITS | Encounter Summary ---
Author Organization [facility] Address [address] [facility] [address] [place] [address] Phone Care Team Providers Care Engineering Technology Instructor Name Role Phone Olegario Guy MD Primary Care Provider [phone] Marlene Hraden NP Primary Care Provider [phone] Yue Rodrigez RN Unavailable Jennifer Dash PANEL MONITOR Unavailable [email or web address] Yvonne Montana Unavailable [email or web address] Dennis Temple MBBS Unavailable Gabriela Barnhart DEAN OF WOMEN Unavailable Cj Meyer DO Primary Care Provider Encounter Details Date Type Department Care Team (Late st Contact Info) Description 03/28/2020 Procedure Pass [facility], [address] [address] Social History Tobacco Use Types Packs/Day Years [...] Description 03/29/2025 10:15 AM EDT Office Visit [facility] [address]rd [facility], [address] [place] [address] Zack Sanchez DO 22 [facility] [address] [place] [address] 05/14/2025 1:00 PM EST Office Visit [facility] 22 [facility] 3rd [facility], [address] [place] [address] Rehan Landaverde MD [address] [place] [address] 09/13/2025 9:30 AM EDT Office Visit [facility] Pulmonary, Allergy and Critical Care Medicine [address] [place] [address] Conner Sneed MD [address] [place] [address] [email or web address] Scheduled Procedures Name Priority Associated Diagnoses Date/Ti me 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 IN GLAZE MAKER Systolic congestive heart failure, unspecified HF chronicity [...] as of this encounter Care Teams Engineering Technology Instructor Relationship Specialty Start Date End Date Olegario Guy MD 230 [facility] [address] [place] [address] [email or web address] PCP - General Family Medicine 03/28/20 01/09/22 Marlene Harden NP 70 [place] [address] PCP - General Family Medicine 01/10/22 08/07/24 Cj Meyer DO [address] [place] [address] PCP - General Internal Medicine 08/08/24 Yue Rodrigez, VENKATA [address] [place] [address] [facility] Dampener Operator 02/21/22 06/09/23 Jennifer Dash LCSW [address] [place] [address] [facility] Social Work 02/01/23 02/11/23 Yvonne Montana [address] [place] [address] [email or web address] [facility] Community Health Worker 02/25/23 06/09/23 Dennis Temple MBBS [address] [place] [address] [email or web address] Primary Oncologist Hematology and Oncology 04/02/23 Gabriela Barnhart CNP [address] [place] [address] [email or web address] Nurse Practitioner Medical Oncology 01/16/24 documented as of this encounter Additional Source Comments The information contained in this document represents components of the legal health record. It is not the complete legal health record.[facility]
--- OUTSIDE RECORDS SUMMARY | 2025-03-24 07:05 | XMS_ITS | Encounter Summary ---
Author Organization [facility] Address [address] [place] [address] Phone Care Team Providers Care Library Science Instructor Name Role Phone Temple, Ahmastu Mccann MBBS Unavailable [phone] Pack, Gabriela DIRECTOR SKILLS Unavailable Cj Meyer DO Primary Care Provider [phone] Encounter Details Date Type Department Care Team (Late st Contact Info) Description 08/30/2024 Procedure Pass [facility], Ct Scan - [facility] 30 [place] [address] Social History Tobacco Use Types Packs/Day Years [...] Description 03/29/2025 10:15 AM EDT Office Visit [facility] [address] [place] [address] 3rd Floor, [address] [place] [address] Zack Sanchez, 22 [facility] [address] [place] [address] 05/14/2025 1:00 PM EST Office Visit [facility] 3[facility], [address] [place] [address] Rehan Landaverde MD 50 [place] [address] 09/13/2025 9:30 AM EDT Office Visit [facility] Pulmonary, Allergy and Critical Care Medicine 10 [place] [address] Conner Sneed MD 10 [facility] 2nd [place] [address] [email or web address] Scheduled Procedures Name Priority Associated Diagnoses Date/Ti me 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 IN REGISTERED RADIATION THERAPIST Systolic congestive heart failure, unspecified HF chronicity documented as of this encounter Visit Diagnoses Not on filedocumented in this encounter Additional Health Concerns Infection Onset Date Last Indicated Resolved Time CoV-Risk Comment:Per note documentation 08/29/2024 08/29/2024 7:27 AM EST Assessment Noted Time PHQ-2 Depression Total Score: 2 03/28/20 22 11:32 AM EDT documented as of this encounter Care Teams Library Science Instructor Relationship Specialty Start Date End Date Cj Meyer DO 70 [place] [address] PCP - General Internal Medicine 08/08/24 Dennis Temple MBBS [email or web address] Primary Oncologist Hematology and Oncology 04/02/23 Gabriela Barnhart CNP 30 [place] [address] Nurse Practitioner Medical Oncology 01/16/24 documented as of this encounter Additional Source Comments The information contained in this document represents components of the legal health record. It is not the complete legal health record.[facility]
--- OUTSIDE RECORDS SUMMARY | 2025-03-24 07:05 | XMS_ITS | Encounter Summary ---
Author Organization [facility] Address [address] [place] [address] Phone Care Team Providers Care Bench Molder Apprentice Name Role Phone Cassie Hardensy Mook BOWLING OR SKATING FRONT DESK CLERK Primary Care Provider Yue Rodrigez RN Unavailable Jennifer Dash HULLER OPERATOR Unavailable felisa Yvonne Montana Unavailable [email or web address] Dennis Temple MBBS Unavailable [phone] Gabriela Barnhart PULPWOOD BUYER Unavailable Cj Meyer DO Primary Care Provider [phone] Encounter Details Date Type Department Care Team (Late st Contact Info) Description 12/13/2022 Procedure Pass [facility], Ct Scan - [address] [address] Social History Tobacco Use Types Packs/Day Years [...] Description 03/29/2025 10:15 AM EDT Office Visit [facility] [address] 3rd [facility], [address] [place] [address] Zack Sanchez DO [address] [place] [address] [place] [address] 05/14/2025 1:00 PM EST Office Visit [facility] [address]rd [facility], [address] [place] [address] Rehan Landaverde MD [address] [place] [address] 09/13/2025 9:30 AM EDT Office Visit [facility], Allergy and Critical Care Medicine 10 [place] [address] Conner Sneed MD [address] [place] [address] [email or web address] Scheduled Procedures Name Priority Associated Diagnoses Date/Ti me 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 IN TIMBER SURVEYOR Systolic congestive heart failure, unspecified HF chronicity [...] documented as of this encounter Care Teams Bench Molder Apprentice Relationship Specialty Start Date End Date Marlene Harden NP 70 [place] [address] PCP - General Family Medicine 01/10/22 08/07/24 Cj Meyer DO 70 [place] [address] PCP - General Internal Medicine 08/08/24 Yue Rodrigez, VENKATA [address] [place] [address] [email or web address] [facility] Publications Production Supervisor 02/21/22 06/09/23 Jennifer Dash LCSW [address] [place] [address] [facility] Social Work 02/01/23 02/11/23 Yvonne Montana [address] [place] [address] [facility] Community Health Worker 02/25/23 06/09/23 Dennis Temple MBBS [address] [place] [address] [email or web address] Primary Oncologist Hematology and Oncology 04/02/23 Gabriela Barnhart CNP [address] [place] [address] [email or web address] Nurse Practitioner Medical Oncology 01/16/24 documented as of this encounter Additional Source Comments The information contained in this document represents components of the legal health record. It is not the complete legal health record.[facility]
--- OUTSIDE RECORDS SUMMARY | 2025-03-24 07:05 | XMS_ITS | Encounter Summary ---
Author Organization [facility] Address [address] [place] [address] Phone Care Team Providers Care Car Sweeper Name Role Phone Temple, Ahmastu Mccann MBBS Unavailable [phone] Pack, Gabriela PHOTOCOPYING EQUIPMENT MECHANIC Unavailable Cj Meyer DO Primary Care Provider [phone] Encounter Details Date Type Department Care Team (Late st Contact Info) Description 08/30/2024 Procedure Pass [facility], Ct Scan - [facility] 30 [place] [address] Social History Tobacco Use Types Packs/Day Years [...] Description 03/29/2025 10:15 AM EDT Office Visit [facility] [address] [place] [address] 3rd Floor, [address] [place] [address] Zack Sanchez, 22 [facility] [address] [place] [address] 05/14/2025 1:00 PM EST Office Visit [facility] 3[facility], [address] [place] [address] Rehan Landaverde MD 50 [place] [address] 09/13/2025 9:30 AM EDT Office Visit [facility], Allergy and Critical Care Medicine 10 [facility] [place] [address] Conner Sneed MD 10 [facility] 2nd [place] [address] [email or web address] Scheduled Procedures Name Priority Associated Diagnoses Date/Ti me 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 IN MANAGER FITNESS Systolic congestive heart failure, unspecified HF chronicity documented as of this encounter Visit Diagnoses Not on filedocumented in this encounter Additional Health Concerns Infection Onset Date Last Indicated Resolved Time CoV-Risk Comment:Per note documentation 08/29/2024 08/29/2024 7:27 AM EST Assessment Noted Time PHQ-2 Depression Total Score: 2 03/28/20 22 11:32 AM EDT documented as of this encounter Care Teams Car Sweeper Relationship Specialty Start Date End Date Cj Meyer DO 70 [place] [address] PCP - General Internal Medicine 08/08/24 Dennis Temple MBBS [email or web address] Primary Oncologist Hematology and Oncology 04/02/23 Gabriela Barnhart CNP 30 [place] [address] Nurse Practitioner Medical Oncology 01/16/24 documented as of this encounter Additional Source Comments The information contained in this document represents components of the legal health record. It is not the complete legal health record.[facility]
--- OUTSIDE RECORDS SUMMARY | 2025-03-24 07:05 | XMS_ITS | Clinical Summary ---
Author Organization [facility] Address [address] [facility] [address] [place] [address] Phone Care Team Providers Care Medical Technologist Chemistry Name Role Phone Temple, Ahmastu Mccann MBBS Unavailable [phone] [employer] CS ASSOCIATE Unavailable Cj Meyer DO Primary Care Provider [phone] Allergies Active Allergy Reactions Criticality Noted Date [...] (LIPITOR) 40 MG tabletIndicatio ns:Atherosclero sis of [place] coronary artery of [place] heart without angina pectoris TAKE 1 TABLET [...] also going to discuss this with his embedded software developer in 1 month to see if he would like to proceed. Assessment & Plan (11/06/2024 4:37 PM EDT): -last stable in Aug on lasix 40 mg qd entresto 24-26 mg bid Most recent echo July showed recovered EF 65 to 70% general good cardiac function. Do not see any additional echocardiograms on the discharge paperwork from [facility] or [facility] where he has been. 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 Immediately prior to that patient had a hospitalization for COPD exacerbation and suspected seizure where patient was placed on Keppra. Was discharged on 08/03/2024 to rehab however redeveloped worsening headache, found to have worsening vasogenic edema and subsequently readmitted at [facility] on 08/08/2024. Hospital course was complicated by COPD exacerbation secondary to RSV virus with patient was subsequently discharged on a steroid taper to [facility] rehab. -- No new concerns. His DOAC [...] initial hospitalization 07/30/2024, after initially presenting to [facility] and had findings of acute bleed. Immediately prior to that patient had a hospitalization for COPD exacerbation and suspected seizure where patient was placed on Keppra. -Was discharged on 08/03/2024 to rehab however redeveloped worsening headache, found to have worsening vasogenic edema and subsequently readmitted at [facility] on 08/08/2024. Hospital course was complicated by COPD exacerbation secondary to RSV virus with patient was subsequently discharged on a steroid taper to [facility] rehab. 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 -- Continue Toprol-XL, amiodarone rivaroxaban Assessment & Plan (08/30/2024 6:01 PM EST): Continue amiodarone, metoprolol 50 mg, Xarelto 20 mg. Patient resume Xarelto on 08/26/2024 per recommendations from neurology from [facility] upon discharge with instructions to discontinue [...] PM EST): With rapid ventricular response. His embedded software developer, Dr. Morales started him on amiodarone 05/26 [...] however, shared decision to send patient to [facility] ED for evaluation/treatment to monitor closely [...] improvement, no ICD was recommended. Follow-up with embedded software developer in 3 months once resulted, sooner for [...] Pulmonary, Allergy and Critical Care Medicine [address] [place] [address] Conner Sneed MD Former smoker; Pulmonary emphysema, unspecified emphysema type 03/16/2025 Telephone [facility] [address] [place] [address] GuyCindy manriquez POC order 03/11/2025 Refill [facility]ergy [facility] [address] [place] [address] Conner Sneed MD Medication Refill 03/03/2025 Telephone [facility] [address] 3rd Floor, [address] [place] [address] Bailey Ocasio 01/22/2025 3:40 PM EDT Office Visit [facility] [address] Floor, [address] [place] [address] Rehan Landaverde MD Paroxysmal atrial fibrillation (Primary [...] Description 03/29/2025 10:15 AM EDT Office Visit [facility] [address] [facility], [address] [place] [address] Zack Sanchez DO [address] [place] [address] [place] [address] 05/14/2025 1:00 PM EST Office Visit [facility] [address] Floor, [address] [place] [address] Rehan Landaverde MD [address] [place] [address] 09/13/2025 9:30 AM EDT Office Visit [facility], [facility]ergy [facility] Critical [facility] 10 [facility] [place] [address] [place] [address] Conner Sneed MD [address] [place] [address] [email or web address] Scheduled Procedures Name Priority Associated Diagnoses Date/Ti me 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 IN HYDROLOGY TECHNICIAN Systolic congestive heart failure, unspecified HF [...] this topic Medical Devices Implanted Type Area Clay [employer] Machine Operator Device Identifier Shelf Expiration Date Model / [...] clinician's provided indication for this examination [facility]: Lung Cancer Screening - FORMER [...] clinician's provided indication for this examination in [facility]:Lung Cancer Screening - FORMER smoker, [...] EDT) TSH 3.65 0.27 - 4.20 uIU/mL [facility] Blood 11/07/2024 5:31 AM EDT 11/07/2024 6:00 AM EDT us Giuliano Adan MD LAB BLOOD ORDERABLES Final Result [address] [address] * (ABNORMAL) Comprehensive metabolic panel (11/05/2024 5:57 AM EDT) SODIUM 139 133 - 146 mmol/L [facility] POTASSIUM 3.6 3.3 - 5.1 mmol/L [facility] CHLORIDE 97 96 - 108 mmol/L [facility] CO2 32 21 - 35 mmol/L [facility] BUN 39(H) 6 - 19 mg/dL [facility] CREATININE 1.90(H) 0.5 - 1.5 mg/dL [facility] GLUCOSE 112(H) 70 - 99 mg/dL [facility] ALBUMIN 3.2(L) 3.9 - 4.8 g/dL [facility] TOTAL PROTEIN 6.2(L) 6.5 - 8.0 g/dL [facility] CALCIUM 8.5 8.4 - 10.3 mg/dL [facility] ALKALINE PHOSPHATASE 91 39 - 117 U/L [facility] TOTAL BILIRUBIN <0.2 0.0 - 1.2 mg/dL [facility] AST 16 0 - 37 U/L [facility] ALT 14 0 - 40 U/L [facility] GLOBULIN 3.0 1 - 4.8 g/dL [facility] EGFR 40(L) >59 mL/min/1.7 3m2 [facility] Comment:Estimated glomerular filtration rate calculated using the CKD-EPI refit equation. ANION GAP 14 10 - 20 mmol/L [facility] Blood 11/05/2024 5:57 AM EDT 11/05/2024 6:34 AM EDT us Anastacia Dietrich MD LAB BLOOD ORDERABLES Final Result Performing Organization Address [facility]/ZIP Co de Phone Number [address] [address] * ENDOSCOPY, COLON (02/22/2023 1:37 PM EDT) Narrative Transcriptions Ioana Armijo MD - 02/22/2023 1:37 PM EDT [facility] Patient Name: Yousif Orellana Attending MD:: IOANA ARMIJO MD, Procedure Date: 02/22/2023 1:37 PM Date of : 1965 Age: 57 Admit Type: Inpatient Gender: Male Room: [place] [address] Referring MD: SHANIKA MONTEMAYOR NP Exam Type: [...] 1:37 PM Procedure Code(s): --- Professional --- 52193, Colonoscopy, flexible; diagnostic, including collection of specimen(s) by brushing or washing, when performed (separateprocedure) --- Technical --- 72146, Colonoscopy, flexible; diagnostic, including collection of specimen(s) by brushing or washing, when performed (separateprocedure) Diagnosis Code(s): --- Professional --- D50.9, Iron deficiency anemia, unspecified --- Technical --- D50.9, Iron deficiency anemia, unspecified CPT copyright 2021 [employer]. All rights reserved. The codes documented in this report are preliminary and upon director field services reviewmay be revised to meet current compliance requirements. Procedure Date: 02/22/2023 1:37:[address] [place] [address] Shanika Montemayor NP GI PROCEDURE ORDERABLES Final R esult from Last 3 Months or Most Recently Relevant to Health Maintenance Insurance [employer] MEDICARE PART A & B [place] [address] MEDICARE PART [place] & [place] & [place] [facility] MEDICARE PART A & B MEDICARE PART A & B [facility] INSURANCE Advance Directives For more information, please contact: [phone] (9AM - 5PM Mona/[facility], Saturday-Saturday) Documents on File Type Date Recorded Patient Garnisher Expl anation Healthcare Proxy 07/22/2024 3:40 PM [...] Agent (Proxy form on file) Care Teams Medical Technologist Chemistry Relationship Specialty Start Date End Date Cj Meyer DO [address] [place] [address] PCP - General Internal Medicine 08/08/24 Dennis Temple MBBS [email or web address] Primary Oncologist Hematology and Oncology 04/02/23 Gabriela Barnhart CNP [address] [place] [address] [email or web address] Nurse Practitioner Medical Oncology 01/16/24 Additional Source Comments The information contained in this document represents components of the legal health record. It is not the complete legal health record.[facility]
--- OUTSIDE RECORDS SUMMARY | 2025-03-24 07:05 | XMS_ITS | Encounter Summary ---
Author Organization [facility] Address [address] [facility] [address] [place] [address] Phone Care Team Providers Care Vp Director Of Finance Name Role Phone Olegario Guy MD Primary Care Provider [phone] Marlene Harden NP Primary Care Provider [phone] Yue Rodrigez RN Unavailable Jennifer Dash STUDENT LIFE VICE PRESIDENT Unavailable [email or web address] Yvonne Montana Unavailable Dennis Temple MBBS Unavailable Gabriela Barnhart SITE SAFETY MANAGER Unavailable Cj Meyer DO Primary Care Provider Encounter Details Date Type Department Care Team (Late st Contact Info) Description 01/05/2022 Procedure Pass [facility], Ct Scan - [address] [address] Social History Tobacco Use Types Packs/Day Years [...] Description 03/29/2025 10:15 AM EDT Office Visit [facility] [address] Floor, [address] [place] [address] Zack Sanchez DO 22 [facility] [address] [place] [address] 05/14/2025 1:00 PM EST Office Visit [facility] 22 [facility] 3rd [facility], [address] [place] [address] Rehan Landaverde MD [address] [place] [address] 09/13/2025 9:30 AM EDT Office Visit [facility], All[facility] 10 [place] [address] Conner Sneed MD [address] [place] [address] [email or web address] Scheduled Procedures Name Priority Associated Diagnoses Date/Ti me 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 IN GIMP TACKER Systolic congestive heart failure, unspecified HF chronicity [...] documented as of this encounter Care Teams Vp Director Of Finance Relationship Specialty Start Date End Date Olegario Guy MD [address] [facility] [address] [place] [phone] [email or web address] PCP - General Family Medicine 03/28/20 01/09/22 Marlene Harden NP [address] [place], [place] PCP - General Family Medicine 01/10/22 08/07/24 Cj Meyer DO [address] [place] [address] PCP - General Internal Medicine 08/08/24 Yue Rodrigez RN [address] [place] [address] [facility] Torch Solderer 02/21/22 06/09/23 Jennifer Dash LCSW [address] [place] [address] [facility] Social Work 02/01/23 02/11/23 Yvonne Montana [address] [place] [address] [email or web address] [facility] Community Health Worker 02/25/23 06/09/23 Dennis Temple MBBS [address] [place] [address] [email or web address] Primary Oncologist Hematology and Oncology 04/02/23 Gabriela Barnhart CNP [address] [place] [address] [email or web address] Nurse Practitioner Medical Oncology 01/16/24 documented as of this encounter Additional Source Comments The information contained in this document represents components of the legal health record. It is not the complete legal health record.[facility]
--- OUTSIDE RECORDS SUMMARY | 2025-03-24 07:05 | XMS_ITS | Encounter Summary ---
Author Organization [facility] Address [address] [facility] [address] [place] [address] Phone Care Team Providers Care Stud Setter Name Role Phone Olegario Guy MD Primary Care Provider Marlene Harden EVIDENCE TECHNICIAN Primary Care Provider Yue Rodrigez RN Unavailable Jennifer Dash NEUROLOGY TECH Unavailable [email or web address] Yvonne Montana Unavailable Dennis Temple MBBS Unavailable Gabriela Barnhart LATEX FASHIONS DESIGNER Unavailable Cj Meyer DO Primary Care Provider Encounter Details Date Type Department Care Team (Latest Contact Info) Description 11/25/2019 Transcribe Orders Virtual Department [address] [place] [address] Marlene Harden, EVIDENCE TECHNICIAN [address] [place], [place] [phone] Atypical chest pain (Primary Dx) Social History [...] Description 03/29/2025 10:15 AM EDT Office Visit [facility] [address] 3rd Floor, [address] [place] [address] Zack Sanchez DO 22 [facility] [address] [place] [address] 05/14/2025 1:00 PM EST Office Visit [facility] [address] 3[address] Floor, [address] [place] [address] Rehan Landaverde MD [address] [place] [address] 09/13/2025 9:30 AM EDT Office Visit [facility] 10 [place] [address] Conner Sneed MD [address] [place] [address] [email or web address] Scheduled Procedures Name Priority Associated Diagnoses Date/Ti me 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 IN TAX INVESTIGATOR Systolic congestive heart failure, unspecified HF [...] documented as of this encounter Care Teams Stud Setter Relationship Specialty Start Date End Date Olegario Guy MD [address] [facility] [address] [place] [address] [email or web address] PCP - General Family Medicine 03/28/20 01/09/22 Marlene Harden, EVIDENCE TECHNICIAN 70 [place] [address] PCP - General Family Medicine 01/10/22 08/07/24 Cj Meyer DO [address] [place] [address] PCP - General Internal Medicine 08/08/24 Yue Rodrigez RN [address] [place] [address] [email or web address] [facility] Anvil Seating Press Operator 02/21/22 06/09/23 Jennifer Dash LCSW [address] [place] [address] [email or web address] [facility] Social Work 02/01/23 02/11/23 Yvonne Montana [address] [place] [address] [email or web address] [facility] Community Health Worker 02/25/23 06/09/23 Dennis Temple MBBS [address] [place] [address] [email or web address] Primary Oncologist Hematology and Oncology 04/02/23 Gabriela Barnhart CNP [address] [place] [address] [email or web address] Nurse Practitioner Medical Oncology 01/16/24 documented as of this encounter Additional Source Comments The information contained in this document represents components of the legal health record. It is not the complete legal health record.[facility]
[2025-03-24 08:01] LABS: Anion Gap 11 (12-20); Blood Urea Nitrogen 18 mg/dL (9-16); Calcium 9.1 mg/dL (8.4-10.2); Carbon Dioxide 31 mmol/L (22-29); Chloride 102 mmol/L (96-108); Estimated Glomerular Filt Rate > 60; Potassium 4.4 mmol/L (3.3-5.1); Sodium 140 mmol/L (135-145)
== END 2025-03-24 07:02 | disposition home or self-care (01) ==
LOC: HO.MMNH1L 07:01
PROVIDERS: Visit Provider Physician Assistant Medical
DX: Z13.89 Encounter for screening for other disorder (principal)
CPT/HCPCS: 36415; 80048

== ENCOUNTER 2025-03-29 07:10 | Outpatient (REF) | payer MEDICARE, SELFPAY ==
[2025-03-29 06:43] LABS: MANUAL DIFF FLAG NO
--- OUTSIDE RECORDS SUMMARY | 2025-03-29 07:12 | XMS_ITS | Encounter Summary ---
Author Organization [facility] Address [address] [facility] [address] [facility] [address] [address] [place] [address] Phone Care Team Providers Care Rn Internship Name Role Phone Dereck Marlene Delvalle END STAPLER Primary Care Provider Dennis Temple MBBS Unavailable [phone] Gabriela Barnhart INSTRUCTIONAL RESOURCE TEACHER Unavailable Cj Meyer DO Primary Care Provider [phone] Encounter Details Date Type Department Care Team (Late st Contact Info) Description 07/18/2024 Procedure Pass [facility], [facility] [address] [place] [address] Social History Tobacco Use Types [...] Description 03/29/2025 10:15 AM EDT Office Visit [facility] [address] [place] [address] [address]rd [facility], [address] [place] [address] Zack Sanchez, DO [address] [place] [address] [address] [place] [address] 05/14/2025 1:00 PM EST Office Visit [facility] 22 [facility] 3rd Floor, [address] [place] [address] Rehan Landaverde MD [address] [place] [address] 09/13/2025 9:30 AM EDT Office Visit [facility] 10 [place] [address] Conner Sneed MD [address] [place] [address] 2[address] [place] [address] [email or web address] Scheduled Procedures Name Priority Associated Diagnoses Date/Ti me 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 IN FIBERGLASS GRINDER Systolic congestive heart failure, unspecified HF chronicity [...] documented as of this encounter Care Teams Rn Internship Relationship Specialty Start Date End Date Marlene Harden NP [address] [place] [address] PCP - General Family Medicine 01/10/22 08/07/24 Cj Meyer DO 70 [place] [address] PCP - General Internal Medicine 08/08/24 Dennis Temple MBBS [address] [place] [address] [email or web address] Primary Oncologist Hematology and Oncology 04/02/23 Gabriela Barnhart CNP [address] [place] [address] [email or web address] Nurse Practitioner Medical Oncology 01/16/24 documented as of this encounter Additional Source Comments The information contained in this document represents components of the legal health record. It is not the complete legal health record.[facility]
--- OUTSIDE RECORDS SUMMARY | 2025-03-29 07:12 | XMS_ITS | Clinical Summary ---
Author Organization [facility] Address [address] [place] [address] Care Team Providers Care Botanical Technical Officer Name Role Phone Marlene Harden NP Primary Care Provider [phone] Social History Tobacco Use Types Packs/Day Years [...] patient's age to complete this topic Insurance [facility] Plan Care Teams Botanical Technical Officer Relationship Specialty Start Date End Date Marlene Harden NP [address] [place] [address] PCP - General Nurse Practitioner 03/05/23
--- OUTSIDE RECORDS SUMMARY | 2025-03-29 07:12 | XMS_ITS | Encounter Summary ---
Author Organization [facility] Address [address] [facility] [address] [place] [address] Phone Care Team Providers Care Pharmacy Technology Instructor Name Role Phone Marlene Harden PHARMACY ORDER ENTRY TECHNICIAN Primary Care Provider Yue Rodrigez RN Unavailable Jennifer Dash DIRECTOR SOFTWARE DEVELOPMENT Unavailable felisa Yvonne Montana Unavailable Dennis Temple MBBS Unavailable [phone] Gabriela Barnhart CARDIAC NURSE SPECIALIST Unavailable Cj Meyre DO Primary Care Provider Encounter Details Date Type Department Care Team (Late st Contact Info) Description 05/14/2022 Transcribe Orders [facility] [address] [place] [address] Marlene Harden NP [address] [place], [place] [phone] Social History Tobacco Use Types Packs/Day Years [...] Upcoming Encounters Date Type Department Care Team ([facility] st Contact Info) Description 03/29/2025 10:15 AM EDT Office Visit [facility] [address] [facility] 3rd Floor, [address] [place] [address] Zack Sanchez DO [address] [facility] [address] [place] [address] 05/14/2025 1:00 PM EST Office Visit [facility] [address] 3rd Floor, [address] [place] [address] Rehan Landaverde MD [address] [place] [address] 09/13/2025 9:30 AM EDT Office Visit [facility] 10 [place] [address] Conner Sneed MD [address] [place] [address] [email or web address] Scheduled Procedures Name Priority Associated Diagnoses Date/Ti me 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 IN GOLF BALL INSPECTOR Systolic congestive heart failure, unspecified HF chronicity [...] documented as of this encounter Care Teams Pharmacy Technology Instructor Relationship Specialty Start Date End Date Marlene Harden NP 70 [place] [address] PCP - General Family Medicine 01/10/22 08/07/24 Cj Meyer DO 70 [place] [address] PCP - General Internal Medicine 08/08/24 Yue Rodrigez RN [address] [place] [address] [email or web address] Insole Stiffener 02/21/22 06/09/23 Jennifer Dash LCSW [address] [place] [address] [facility] 02/01/23 02/11/23 Yvonne Montana [address] [place] [address] [email or web address] Community Health Worker 02/25/23 06/09/23 Dennis Temple MBBS [address] [place] [address] [email or web address] Primary Oncologist Hematology and Oncology 04/02/23 Gabriela Barnhart CNP [address] [place] [address] Nurse Practitioner Medical Oncology 01/16/24 documented as of this encounter Additional Source Comments The information contained in this document represents components of the legal health record. It is not the complete legal health record.[facility]
--- OUTSIDE RECORDS SUMMARY | 2025-03-29 07:12 | XMS_ITS | Encounter Summary ---
Author Organization [facility] Address [address] [place] [address] Phone Care Team Providers Care Casino Shift Manager Name Role Phone Temple, Ahmastu Mccann MBBS Unavailable Pack, Gabriela SOCIAL SCIENCES RESEARCH SCIENTIST Unavailable Cj Meyer DO Primary Care Provider [phone] Encounter Details Date Type Department Care Team (Late st Contact Info) Description 12/09/2024 Procedure Pass [facility], Ct Scan - [address] [address] Social History Tobacco Use Types Packs/Day Years [...] Description 03/29/2025 10:15 AM EDT Office Visit [facility] [address] [place] [address] 3rd Floor, [address] [place] [address] Zack Sanchez, DO 22 [facility] [address] [place] [address] 05/14/2025 1:00 PM EST Office Visit [facility] [address] [place] [address] 3rd Floor, [address] [place] [address] Rehan Landaverde MD 50 [place] [address] 09/13/2025 9:30 AM EDT Office Visit [facility] 10 [facility] [place] [address] Conner Sneed MD 10 [facility] 2nd [place] [address] [email or web address] Scheduled Procedures Name Priority Associated Diagnoses Date/Ti me 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 IN SALES FORECAST ANALYST Systolic congestive heart failure, unspecified HF chronicity documented as of this encounter Visit Diagnoses Not on filedocumented in this encounter Additional Health Concerns Assessment Noted Time PHQ-2 Depression Total Score: 2 03/28/20 22 11:32 AM EDT documented as of this encounter Care Teams Casino Shift Manager Relationship Specialty Start Date End Date Cj Meyer DO [address] [place] [address] PCP - General Internal Medicine 08/08/24 Dennis Temple MBBS [email or web address] Primary Oncologist Hematology and Oncology 04/02/23 Gabriela Barnhart CNP 30 [place] [address] [email or web address] Nurse Practitioner Medical Oncology 01/16/24 documented as of this encounter Additional Source Comments The information contained in this document represents components of the legal health record. It is not the complete legal health record.[facility]
--- OUTSIDE RECORDS SUMMARY | 2025-03-29 07:12 | XMS_ITS | Encounter Summary ---
Author Organization [facility] Address [address] [place] [address] Phone Care Team Providers Care Mental Health Counselor Name Role Phone Temple, Ahmastu Mccann MBBS Unavailable [phone] Pack, Gabriela FRONT COUNTER ATTENDANT Unavailable Cj Meyer DO Primary Care Provider [phone] Encounter Details Date Type Department Care Team (Late st Contact Info) Description 08/30/2024 Procedure Pass [facility], Ct Scan - [facility] 30 [place] [address] Social History Tobacco Use Types Packs/Day Years [...] Description 03/29/2025 10:15 AM EDT Office Visit [facility] [address] [place] [address] 3rd Floor, [address] [place] [address] Zack Sanchez, 22 [facility] [address] [place] [address] 05/14/2025 1:00 PM EST Office Visit [facility] [address] [facility] 3rd Floor, [address] [place] [address] Rehan Landaverde MD 50 [place] [address] 09/13/2025 9:30 AM EDT Office Visit [facility] 10 [facility] [place] [address] Conner Sneed MD 10 [facility] 2nd [place] [address] [email or web address] Scheduled Procedures Name Priority Associated Diagnoses Date/Ti me 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 IN AIR CONDITIONER INSTALLER HELPER Systolic congestive heart failure, unspecified HF chronicity documented as of this encounter Visit Diagnoses Not on filedocumented in this encounter Additional Health Concerns Infection Onset Date Last Indicated Resolved Time CoV-Risk Comment:Per note documentation 08/29/2024 08/29/2024 7:27 AM EST Assessment Noted Time PHQ-2 Depression Total Score: 2 03/28/20 22 11:32 AM EDT documented as of this encounter Care Teams Mental Health Counselor Relationship Specialty Start Date End Date Cj Meyer DO 70 [place] [address] PCP - General Internal Medicine 08/08/24 Dennis Temple MBBS [email or web address] Primary Oncologist Hematology and Oncology 04/02/23 Gabriela Barnhart CNP 30 [place] [address] Nurse Practitioner Medical Oncology 01/16/24 documented as of this encounter Additional Source Comments The information contained in this document represents components of the legal health record. It is not the complete legal health record.[facility]
--- OUTSIDE RECORDS SUMMARY | 2025-03-29 07:12 | XMS_ITS | Encounter Summary ---
Author Organization [facility] Address [address] [facility] [address] [place] [address] Phone Care Team Providers Care Can Tester Name Role Phone Marlene Harden NP Primary Care Provider Yue Rodrigez RN Unavailable Jennifer Dash SALES REPRESENTATIVE Unavailable felisa Yvonne Montana Unavailable Dennis Temple MBBS Unavailable [phone] Gabriela Barnhart NEUROLOGY STROKE PHYSICIAN Unavailable Cj Meyer DO Primary Care Provider [phone] Encounter Details Date Type Department Care Team (Late st Contact Info) Description 05/29/2022 Procedure Pass [facility] Cardiovascular And Interventional Radiology 30 [place] [address] Social History Tobacco Use Types Packs/Day Years [...] Description 03/29/2025 10:15 AM EDT Office Visit [facility] [address] 3rd Floor, [address] [place] [address] Zack Sanchez DO 22 [facility] [address] [place] [address] 05/14/2025 1:00 PM EST Office Visit [facility] [address] 3rd Floor, [address] [place] [address] Rehan Landaverde MD [address] [place] [address] 09/13/2025 9:30 AM EDT Office Visit [facility] 10 [place] [address] Conner Sneed MD [address] [place] [address] [email or web address] Scheduled Procedures Name Priority Associated Diagnoses Date/Ti me 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 IN POWER SAW OPERATOR Systolic congestive heart failure, unspecified HF [...] documented as of this encounter Care Teams Can Tester Relationship Specialty Start Date End Date Marlene Harden NP 70 [place] [address] PCP - General Family Medicine 01/10/22 08/07/24 Cj Meyer DO 70 [place] [address] PCP - General Internal Medicine 08/08/24 Yue Rodrigez, VENKATA [address] [place] [address] [facility] Promotion Manager 02/21/22 06/09/23 Jennifer Dash LCSW [address] [place] [address] [email or web address] [facility] Social Work 02/01/23 02/11/23 Yvonne Montana [address] [place] [address] [facility] Community Health Worker 02/25/23 06/09/23 Dennis Temple MBBS [address] [place] [address] [email or web address] Primary Oncologist Hematology and Oncology 04/02/23 Gabriela Barnhart CNP [address] [place] [address] Nurse Practitioner Medical Oncology 01/16/24 documented as of this encounter Additional Source Comments The information contained in this document represents components of the legal health record. It is not the complete legal health record.[facility]
--- OUTSIDE RECORDS SUMMARY | 2025-03-29 07:12 | XMS_ITS | Encounter Summary ---
Author Organization [facility] Address [address] [place] [address] Phone Care Team Providers Care Regional Sales Representative Name Role Phone Cassie Hardensy Mook WATER/WASTEWATER PROJECT ENGINEER Primary Care Provider Yue Rodrigez RN Unavailable Jennifer Dash ATG ARCHITECT Unavailable felisa Yvonne Montana Unavailable Dennis Temple MBBS Unavailable [phone] Gabriela Barnhart LARDER COOK Unavailable Cj Meyer DO Primary Care Provider [phone] Encounter Details Date Type Department Care Team (Late st Contact Info) Description 12/13/2022 Procedure Pass [facility], Ct Scan - [address] [address] Social History Tobacco Use Types Packs/Day Years [...] Description 03/29/2025 10:15 AM EDT Office Visit [facility] [address]rd [facility], [address] [place] [address] Zack Sanchez DO [address] [place] [address] [place] [address] 05/14/2025 1:00 PM EST Office Visit [facility] [address] [facility], [address] [place] [address] Rehan Landaverde MD [address] [place] [address] 09/13/2025 9:30 AM EDT Office Visit [facility] 10 [place] [address] Conner Sneed MD [address] [place] [address] [email or web address] Scheduled Procedures Name Priority Associated Diagnoses Date/Ti me 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 IN PAVING RAMMER Systolic congestive heart failure, unspecified HF chronicity [...] documented as of this encounter Care Teams Regional Sales Representative Relationship Specialty Start Date End Date Marlene Harden NP 70 [place] [address] PCP - General Family Medicine 01/10/22 08/07/24 Cj Meyer DO 70 [place] [address] PCP - General Internal Medicine 08/08/24 Yue Rodrigez, VENKATA [address] [place] [address] [email or web address] [facility] Supervisor Compounding And Finishing 02/21/22 06/09/23 Jennifer Dash LCSW [address] [place] [address] [facility] Social Work 02/01/23 02/11/23 Yvonne Montana [address] [place] [address] [facility] Community Health Worker 02/25/23 06/09/23 Dennis Temple MBBS [address] [place] [address] [email or web address] Primary Oncologist Hematology and Oncology 04/02/23 Gabriela Barnhart CNP [address] [place] [address] [email or web address] Nurse Practitioner Medical Oncology 01/16/24 documented as of this encounter Additional Source Comments The information contained in this document represents components of the legal health record. It is not the complete legal health record.[facility]
--- OUTSIDE RECORDS SUMMARY | 2025-03-29 07:12 | XMS_ITS | Encounter Summary ---
Author Organization [facility] Address [address] [facility] [address] [place] [address] Phone Care Team Providers Care Private Tutors And Teachers Name Role Phone Marlene Harden HOME HEALTH AIDE CAREGIVER Primary Care Provider [phone] Yue Rodrigez RN Unavailable Jennifer Dash PHYSIOLOGICAL CHEMIST Unavailable felisa Yvonne Montana Unavailable Dennis Temple MBBS Unavailable [phone] Gabriela Barnhart ASSIGNMENT AGENT Unavailable Cj Meyer DO Primary Care Provider [phone] Encounter Details Date Type Department Care Team (Late st Contact Info) Description 09/03/2022 Procedure Pass [facility], Ct Scan - [address] [address] Social History Tobacco Use Types Packs/Day Years [...] Description 03/29/2025 10:15 AM EDT Office Visit [facility] 22 [facility] 3rd Floor, [address] [place] [address] Zack Sanchez DO 22 [facility] [address] [place] [address] 05/14/2025 1:00 PM EST Office Visit [facility] [address] 3rd [facility], [address] [place] [address] Rehan Landaverde MD [address] [place] [address] 09/13/2025 9:30 AM EDT Office Visit [facility] 10 [place] [address] Conner Sneed MD [address] [place] [address] [email or web address] Scheduled Procedures Name Priority Associated Diagnoses Date/Ti me 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 IN SALES TEAM MEMBER Systolic congestive heart failure, unspecified [...] documented as of this encounter Care Teams Private Tutors And Teachers Relationship Specialty Start Date End Date Marlene Harden NP 70 [place] [address] PCP - General Family Medicine 01/10/22 08/07/24 Cj Meyer DO 70 [place] [address] PCP - General Internal Medicine 08/08/24 Yue Rodrigez RN [address] [place] [address] [facility] Skin Care Consultant 02/21/22 06/09/23 Jennifer Dash LCSW [address] [place] [address] [facility] Social Work 02/01/23 02/11/23 Yvonne Montana [address] [place] [address] [facility] Community Health Worker 02/25/23 06/09/23 Dennis Temple MBBS [address] [place] [address] [email or web address] Primary Oncologist Hematology and Oncology 04/02/23 Gabriela Barnhart CNP [address] [place] [address] Nurse Practitioner Medical Oncology 01/16/24 documented as of this encounter Additional Source Comments The information contained in this document represents components of the legal health record. It is not the complete legal health record.[facility]
--- OUTSIDE RECORDS SUMMARY | 2025-03-29 07:12 | XMS_ITS | Encounter Summary ---
Author Organization [facility] Address [address] [place] [address] Phone Care Team Providers Care Air Conditioner Installer Helper Name Role Phone Cassie Hardensy Mook MANAGER GAS Primary Care Provider Yue Rodrigez RN Unavailable Jennifer Dash ELECTROPHYSIOLOGY TECHNOLOGIST Unavailable felisa Yvonne Montana Unavailable Dennis Temple MBBS Unavailable [phone] Gabriela Barnhart COMMERCIAL GREEN RETROFIT ARCHITECT Unavailable Cj Meyer DO Primary Care Provider [phone] Encounter Details Date Type Department Care Team (Late st Contact Info) Description 12/13/2022 Procedure Pass [facility], Ct Scan - [address] [address] Social History Tobacco Use Types Packs/Day Years [...] Description 03/29/2025 10:15 AM EDT Office Visit [facility] [address] 3rd [facility], [address] [place] [address] Zack Sanchez DO [address] [place] [address] [place] [address] 05/14/2025 1:00 PM EST Office Visit [facility] [address] [facility], [address] [place] [address] Rehan Landaverde MD [address] [place] [address] 09/13/2025 9:30 AM EDT Office Visit [facility] 10 [place] [address] Conner Sneed MD [address] [place] [address] [email or web address] Scheduled Procedures Name Priority Associated Diagnoses Date/Ti me 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 IN MARSHMALLOW MACHINE OPERATOR Systolic congestive heart failure, unspecified [...] documented as of this encounter Care Teams Air Conditioner Installer Helper Relationship Specialty Start Date End Date Marlene Harden NP 70 [place] [address] PCP - General Family Medicine 01/10/22 08/07/24 Cj Meyer DO 70 [place] [address] PCP - General Internal Medicine 08/08/24 Yue Rodrigez, VENKATA [address] [place] [address] [email or web address] [facility] General Internist 02/21/22 06/09/23 Jennifer Dash LCSW [address] [place] [address] [facility] Social Work 02/01/23 02/11/23 Yvonne Montana [address] [place] [address] [facility] Community Health Worker 02/25/23 06/09/23 Dennis Temple MBBS [address] [place] [address] [email or web address] Primary Oncologist Hematology and Oncology 04/02/23 Gabriela Barnhart CNP [address] [place] [address] [email or web address] Nurse Practitioner Medical Oncology 01/16/24 documented as of this encounter Additional Source Comments The information contained in this document represents components of the legal health record. It is not the complete legal health record.[facility]
--- OUTSIDE RECORDS SUMMARY | 2025-03-29 07:12 | XMS_ITS | Encounter Summary ---
Author Organization [facility] Address [address] [facility] [address] [place] [address] Phone Care Team Providers Care Recovery Operator Name Role Phone Marlene Harden NP Primary Care Provider [phone] Yue Rodrigez RN Unavailable Jennifer Dash CAREER COUNSELOR Unavailable [email or web address] Yvonne Montana Unavailable Dennis Temple MBBS Unavailable Gabriela Barnhart SECURITY SITE SUPERVISOR Unavailable Cj Meyer DO Primary Care Provider [phone] Reason for Referral * - Closed Specialty Diagnoses / Procedures Referred By Contflorentin t Referred To Contact Diagnoses Permanent atrial fibrillation Procedures MCT (Mobile Cardiac Telemetry) Zack Sanchez DO Phone: tel: fax: mailto: Referral ID Status Reason Start Date Expiration Date Visits Re quested Visits Authorized [id number] Closed 04/11/2022 04/11/2023 1 1 Encounter Details Date Type Department Care Team (Latest Contact Info) Description 04/11/2022 Ancillary Orders [facility] 22 [facility] 3rd Floor, [address] [place] [address] Zack Sanchez DO [address] [address] [email or web address] Permanent atrial fibrillation Social History [...] Description 03/29/2025 10:15 AM EDT Office Visit [facility] [address] [place] [address], [address] [address] Zack Sanchez DO [address] [address] 05/14/2025 1:00 PM EST Office Visit [facility] [address], [address] [address] Rehan Landaverde MD [address] [place] [address] 09/13/2025 9:30 AM EDT Office Visit [facility] 10 [place] [address] Conner Sneed MD [address] [place] [address] [email or web address] Scheduled Orders Name Type Priority Associated Diagnoses Orde r Schedule MCT (Mobile Cardiac Telemetry) Cardiac Monitors Routine Permanent atrial fibrillation Expected: 02/27/2022, Expires: 05/23/2022 Scheduled Procedures Name Priority Associated Diagnoses Date/Ti me 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 IN SHOPFITTER Systolic congestive heart failure, unspecified HF chronicity [...] documented as of this encounter Care Teams Recovery Operator Relationship Specialty Start Date End Date Marlene Harden NP 70 [place] [address] PCP - General Family Medicine 01/10/22 08/07/24 Cj Meyer DO 70 [place] [address] PCP - General Internal Medicine 08/08/24 Yue Rodrigez, RN [address] [place] [address] [facility] Nurse Midwife/Clinical Instructor 02/21/22 06/09/23 Jennifer Dash LCSW [address] [place] [address] [facility] Social Work 02/01/23 02/11/23 Yvonne Montana [address] [place] [address] [email or web address] Community Health Worker 02/25/23 06/09/23 Dennis Temple MBBS 10 [place] [address] [email or web address] Primary Oncologist Hematology and Oncology 04/02/23 Gabriela Barnhart CNP [address] [place] [address] [email or web address] Nurse Practitioner Medical Oncology 01/16/24 documented as of this encounter Additional Source Comments The information contained in this document represents components of the legal health record. It is not the complete legal health record.[facility]
--- OUTSIDE RECORDS SUMMARY | 2025-03-29 07:12 | XMS_ITS | Encounter Summary ---
Author Organization [facility] Address [address] [place] [address] Phone Care Team Providers Care Horse Racetrack Manager Name Role Phone Temple, Ahmastu Mccann MBBS Unavailable Pack, Gabriela SHIPPING PACKER Unavailable Cj Meyer DO Primary Care Provider [phone] Encounter Details Date Type Department Care Team (Late st Contact Info) Description 08/30/2024 Procedure Pass [facility], Ct Scan - [facility] 30 [place] [address] Social History Tobacco Use Types Packs/Day Years [...] Description 03/29/2025 10:15 AM EDT Office Visit [facility] [address] [place] [address] 3rd Floor, [address] [place] [address] Zack Sanchez, 22 [facility] [address] [place] [address] 05/14/2025 1:00 PM EST Office Visit [facility] 3rd Floor, [address] [place] [address] Rehan Landaverde MD 50 [place] [address] 09/13/2025 9:30 AM EDT Office Visit [facility] 10 [facility] [place] [address] Conner Sneed MD 10 [facility] 2nd [place] [address] [email or web address] Scheduled Procedures Name Priority Associated Diagnoses Date/Ti me 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 IN TOWEL SORTER Systolic congestive heart failure, unspecified HF chronicity documented as of this encounter Visit Diagnoses Not on filedocumented in this encounter Additional Health Concerns Infection Onset Date Last Indicated Resolved Time CoV-Risk Comment:Per note documentation 08/29/2024 08/29/2024 7:27 AM EST Assessment Noted Time PHQ-2 Depression Total Score: 2 03/28/20 22 11:32 AM EDT documented as of this encounter Care Teams Horse Racetrack Manager Relationship Specialty Start Date End Date Cj Meyer DO 70 [place] [address] PCP - General Internal Medicine 08/08/24 Dennis Temple MBBS [email or web address] Primary Oncologist Hematology and Oncology 04/02/23 Gabriela Barnhart CNP 30 [place] [address] Nurse Practitioner Medical Oncology 01/16/24 documented as of this encounter Additional Source Comments The information contained in this document represents components of the legal health record. It is not the complete legal health record.[facility]
--- OUTSIDE RECORDS SUMMARY | 2025-03-29 07:12 | XMS_ITS | Encounter Summary ---
Author Organization [facility] Address [address] [place] [address] Phone Care Team Providers Care Trustee Of Estate Name Role Phone Dereck Marlene Mook GLUER AND SLICER HAND Primary Care Provider [phone] Dennis Temple MBBS Unavailable [phone] Gabriela Barnhart OVERNIGHT ASSOCIATE Unavailable Cj Meyer DO Primary Care Provider Encounter Details Date Type Department Care Team (Late st Contact Info) Description 10/03/2023 Procedure Pass [facility], Ct Scan - [address] [address] Social History Tobacco Use Types Packs/Day Years [...] Description 03/29/2025 10:15 AM EDT Office Visit [facility] [address], [address] [address] Zack Sanchez DO [address] [place] [address] 05/14/2025 1:00 PM EST Office Visit [facility] [address], [address] [address] Rehan Landaverde MD [address] [place] [address] 09/13/2025 9:30 AM EDT Office Visit [facility] 10 [place] [address] Conner Sneed MD [address] [place] [address] [email or web address] Scheduled Procedures Name Priority Associated Diagnoses Date/Ti me 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 IN PATTERN HAND Systolic congestive heart failure, unspecified HF chronicity [...] documented as of this encounter Care Teams Trustee Of Estate Relationship Specialty Start Date End Date Marlene Harden NP 70 [place] [address] PCP - General Family Medicine 01/10/22 08/07/24 Cj Meyer DO 70 [place] [address] PCP - General Internal Medicine 08/08/24 Dennis Temple MBBS 70 [place] [address] [email or web address] Primary Oncologist Hematology and Oncology 04/02/23 Gabriela Barnhart CNP [address] [place] [address] [email or web address] Nurse Practitioner Medical Oncology 01/16/24 documented as of this encounter Additional Source Comments The information contained in this document represents components of the legal health record. It is not the complete legal health record.[facility]
--- OUTSIDE RECORDS SUMMARY | 2025-03-29 07:12 | XMS_ITS | Encounter Summary ---
Author Organization [facility] Address [address] [place] [address] Phone Care Team Providers Care Branch Library Clerk Name Role Phone DereckMarlene Mook CHAR BELT OPERATOR Primary Care Provider Dennis Temple MBBS Unavailable [phone] Gabriela Barnhart STATISTICAL MACHINE MECHANIC Unavailable Cj Meyer DO Primary Care Provider [phone] Encounter Details Date Type Department Care Team (Late st Contact Info) Description 07/17/2024 Procedure Pass [facility] [address] [place] [address] Social History Tobacco Use Types Packs/Day Years [...] 07/17/2024 1:48 PM Sofy Harry, VENKATA * [place] Suicide Severity Rating Scale (Screener/Recent Self-Report) Question [...] Description 03/29/2025 10:15 AM EDT Office Visit [facility] [address] [place] [address] 3rd [facility] [place] [facility], [address] [place] [address] Zack Sanchez DO 22 [facility] [address] [place] [address] 05/14/2025 1:00 PM EST Office Visit [facility] [address] 3rd [facility] [place] [facility], [address] [place] [address] Rehan Landaverde MD [address] [place] [address] 09/13/2025 9:30 AM EDT Office Visit [facility] 10 [place] [address] Conner Sneed MD [address] [place] [address] [email or web address] Scheduled Procedures Name Priority Associated Diagnoses Date/Ti ks 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 IN DELIVERY CREW MEMBER Systolic congestive heart failure, unspecified HF [...] Date End Date Marlene Harden NP 70 [place] [address] PCP - General Family Medicine 01/10/22 08/07/24 Cj Meyer DO 70 [place] [address] PCP - General Internal Medicine 08/08/24 Dennis Temple MBBS 70 [place] [address] [email or web address] [email or web address] Primary Oncologist Hematology and Oncology 04/02/23 Gabriela Barnhart CNP 30 [place] [address] [email or web address] Nurse Practitioner Medical Oncology 01/16/24 documented as of this encounter Additional Source Comments The information contained in this document represents components of the legal health record. It is not the complete legal health record.[facility]
--- OUTSIDE RECORDS SUMMARY | 2025-03-29 07:12 | XMS_ITS | Encounter Summary ---
Author Organization [facility] Address [address] [place] [address] Phone Care Team Providers Care Gyroscopic Instrument Tester Name Role Phone Dereck Marlene Mook POCKET MACHINE OPERATOR Primary Care Provider [phone] Dennis Temple MBBS Unavailable [phone] Gabriela Barnhart DIRECTOR OF MANUFACTURING OPERATIONS Unavailable Cj Meyer DO Primary Care Provider [phone] Encounter Details Date Type Department Care Team (Late st Contact Info) Description 07/18/2024 Procedure Pass [facility], Ct Scan - [address] [address] Social History Tobacco Use Types Packs/Day Years [...] Description 03/29/2025 10:15 AM EDT Office Visit [facility] [address] [place] [address] 3rd [facility], [address] [place] [address] Zack Sanchez, DO [facility] [address] [place] [address] 05/14/2025 1:00 PM EST Office Visit [facility] 22 [facility] 3rd Floor, [address] [place] [address] Rehan Landaverde MD [address] [place] [address] 09/13/2025 9:30 AM EDT Office Visit [facility] 10 [place] [address] Conner Sneed MD [address] [place] [address] 2[address] [place] [address] [email or web address] Scheduled Procedures Name Priority Associated Diagnoses Date/Ti me 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 IN TOPLINE BEADING MACHINE TENDER Systolic congestive heart failure, unspecified [...] documented as of this encounter Care Teams Gyroscopic Instrument Tester Relationship Specialty Start Date End Date Marlene Harden NP 70 [place] [address] PCP - General Family Medicine 01/10/22 08/07/24 Cj Meyer DO 70 [place] [address] PCP - General Internal Medicine 08/08/24 Dennis Temple MBBS [address] [place] [address] [email or web address] [email or web address] Primary Oncologist Hematology and Oncology 04/02/23 Gabriela Barnhart CNP [address] [place] [address] [email or web address] [email or web address] Nurse Practitioner Medical Oncology 01/16/24 documented as of this encounter Additional Source Comments The information contained in this document represents components of the legal health record. It is not the complete legal health record.[facility]
--- OUTSIDE RECORDS SUMMARY | 2025-03-29 07:12 | XMS_ITS | Encounter Summary ---
Author Organization [facility] Address [address] [place] [address] Phone Care Team Providers Care Radio Script Writer Name Role Phone Dereck Marlene Mook WHITE METAL CASTER Primary Care Provider [phone] Dennis Temple MBBS Unavailable [phone] Gabriela Barnhart TOOL SMITH Unavailable Cj Meyer DO Primary Care Provider Encounter Details Date Type Department Care Team (Late st Contact Info) Description 07/18/2024 Procedure Pass [facility], [address] [address] Social History Tobacco Use Types Packs/Day Years [...] Description 03/29/2025 10:15 AM EDT Office Visit [facility] [address] [place] [address] 3rd [facility], [address] [place] [address] Zack Sanchez, DO 22 [facility] [address] [place] [address] 05/14/2025 1:00 PM EST Office Visit [facility] 22 [facility] 3rd Floor, [address] [place] [address] Rehan Landaverde MD [address] [place] [address] 09/13/2025 9:30 AM EDT Office Visit [facility] 10 [place] [address] Conner Sneed MD [address] [place] [address] 2[address] [place] [address] [email or web address] Scheduled Procedures Name Priority Associated Diagnoses Date/Ti me 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 IN STUDENT ASSISTANCE COUNSELOR Systolic congestive heart failure, unspecified HF chronicity [...] documented as of this encounter Care Teams Radio Script Writer Relationship Specialty Start Date End Date Marlene Harden NP 70 [place] [address] PCP - General Family Medicine 01/10/22 08/07/24 Cj Meyer DO 70 [place] [address] PCP - General Internal Medicine 08/08/24 Dennis Temple MBBS [address] [place] [address] [email or web address] [email or web address] Primary Oncologist Hematology and Oncology 04/02/23 Gabriela Barnhart CNP [address] [place] [address] [email or web address] Nurse Practitioner Medical Oncology 01/16/24 documented as of this encounter Additional Source Comments The information contained in this document represents components of the legal health record. It is not the complete legal health record.[facility]
--- OUTSIDE RECORDS SUMMARY | 2025-03-29 07:12 | XMS_ITS | Encounter Summary ---
Author Organization [facility] Address [address] [facility] [address] [place] [address] Phone Care Team Providers Care Serger Name Role Phone Marlene Harden NP Primary Care Provider Yue Rodrigez RN Unavailable Jennifer Dash PASTE PLANT SUPERVISOR Unavailable felisa Yvonne Montana Unavailable Denins Temple MBBS Unavailable [phone] Gabriela Barnhart MACHINE ETCHER Unavailable Cj Meyer DO Primary Care Provider Encounter Details Date Type Department Care Team (Late st Contact Info) Description 06/21/2022 Procedure Pass [facility] Cardiovascular And Interventional Radiology 30 [place] [address] Social History Tobacco Use Types Packs/Day Years [...] 03/29/2025 10:15 AM EDT Office Visit [facility] [address] 3rd Floor, [address] [place] [address] Zack Sanchez DO 22 [facility] [address] [place] [address] 05/14/2025 1:00 PM EST Office Visit [facility] [address] 3[address] Floor, [address] [place] [address] Rehan Landaverde MD [address] [place] [address] 09/13/2025 9:30 AM EDT Office Visit [facility] 10 [place] [address] Conner Sneed MD [address] [place] [address] [email or web address] Scheduled Procedures Name Priority Associated Diagnoses Date/Ti me 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 IN DIETITIAN CONSULTANT Systolic congestive heart failure, unspecified HF [...] documented as of this encounter Care Teams Serger Relationship Specialty Start Date End Date Marlene Harden NP 70 [place] [address] PCP - General Family Medicine 01/10/22 08/07/24 Cj Meyer DO 70 [place] [address] PCP - General Internal Medicine 08/08/24 Yue Rodrigez, VENKATA [address] [place] [address] [facility] Auto Dealership Porter 02/21/22 06/09/23 Jennifer Dash LCSW [address] [place] [address] [email or web address] [facility] Social Work 02/01/23 02/11/23 Yvonne Montana [address] [place] [address] [facility] Community Health Worker 02/25/23 06/09/23 Dennis Temple MBBS [address] [place] [address] [email or web address] Primary Oncologist Hematology and Oncology 04/02/23 Gabriela Barnhart CNP [address] [place] [address] Nurse Practitioner Medical Oncology 01/16/24 documented as of this encounter Additional Source Comments The information contained in this document represents components of the legal health record. It is not the complete legal health record.[facility]
--- OUTSIDE RECORDS SUMMARY | 2025-03-29 07:12 | XMS_ITS | Encounter Summary ---
Author Organization [facility] Address [address] [place] [address] Phone Care Team Providers Care Production Support Developer Name Role Phone WindyAlexanderstu Mccann MBBS Unavailable Pack, Gabriela CARDIAC TECH Unavailable Cj Meyer DO Primary Care Provider [phone] Encounter Details Date Type Department Care Team (Late st Contact Info) Description 08/08/2024 Procedure Pass [facility], Ct Scan - [facility] 30 [place] [address] Social History Tobacco Use Types Packs/Day Years [...] 3:25 PM Maria E Timmons RN * [place] Suicide Severity Rating Scale (Screener/Recent Self-Report) Question Answer Date of Assessment Author 1. Wish to be (Past 1 Month) No 025 3:25 PM aMria E Timmons, VENKATA 2. Non-Specific Active Suici meghan Thoughts (Past 1 Month) No 08/08/2024 3:25 PM Galindo Timmons, RN 6. Suicidal Behavior (Lifetime) No 3:25 PM Maria E Timmons, VENKATA documented as of this encounter Plan of Treatment Upcoming Encounters Date Type Department Care Team ([facility] st Contact Info) Description 03/29/2025 10:15 AM EDT Office Visit [facility] [address], [address] [place] [address] Zack Sanchez DO [address] [place] [address] [place] [address] 05/14/2025 1:00 PM EST Office Visit [address], [address] [place] [address] Rehan Landaverde MD [address] [place] [address] 09/13/2025 9:30 AM EDT Office Visit [facility] 10 [place] [address] Conner Sneed MD [address] [place] [address] [email or web address] Scheduled Procedures Name Priority Associated Diagnoses Date/Ti me 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 IN BALING MACHINE OPERATOR Systolic congestive heart failure, unspecified [...] documented as of this encounter Care Teams Production Support Developer Relationship Specialty Start Date End Date Cj Meyer DO [address] [place] [address] PCP - General Internal Medicine 08/08/24 Dennis Temple MBBS [email or web address] Primary Oncologist Hematology and Oncology 04/02/23 Gabriela Barnhart CNP [address] [place] [address] [email or web address] Nurse Practitioner Medical Oncology 01/16/24 documented as of this encounter Additional Source Comments The information contained in this document represents components of the legal health record. It is not the complete legal health record.[facility]
--- OUTSIDE RECORDS SUMMARY | 2025-03-29 07:12 | XMS_ITS | Encounter Summary ---
Author Organization [facility] Address [address] [place] [address] Phone Care Team Providers Care Software Implementation Specialist Name Role Phone Marlene Harden NP Primary Care Provider [phone] Yue Rodrigez RN Unavailable Jennifer Dash PROFESSIONAL SYSTEM ADMINISTRATOR Unavailable felisa Yvonne Montana Unavailable Dennis Temple MBBS Unavailable [phone] Gabriela Barnhart COMMERCIAL SOLAR SALES CONSULTANT Unavailable Cj Meyer DO Primary Care Provider [phone] Encounter Details Date Type Department Care Team (Late st Contact Info) Description 03/15/2022 Procedure Pass [facility], Ct Scan - [address] [address] Social History Tobacco Use Types Packs/Day Years [...] Description 03/29/2025 10:15 AM EDT Office Visit [facility] [address] [place] [address] Dr 3rd Floor, [address] [place] [address] Zack Sanchez DO 22 [facility] [address] [place] [address] 05/14/2025 1:00 PM EST Office Visit [facility] [address] 3[address] Floor, [address] [place] [address] Rehan Landaverde MD [address] [place] [address] 09/13/2025 9:30 AM EDT Office Visit [facility] 10 [place] [address] Conner Sneed MD [address] [place] [address] [email or web address] Scheduled Procedures Name Priority Associated Diagnoses Date/Ti me 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 IN EXTRUSION MACHINE OPERATOR Systolic congestive heart failure, unspecified [...] documented as of this encounter Care Teams Software Implementation Specialist Relationship Specialty Start Date End Date Marlene Harden NP 70 [place] [address] PCP - General Family Medicine 01/10/22 08/07/24 Cj Meyer DO 70 [place] [address] PCP - General Internal Medicine 08/08/24 Yue Rodrigez RN [address] [place] [address] [facility] Reports Developer 02/21/22 06/09/23 Jennifer Dash LCSW [address] [place] [address] [email or web address] [facility] Social Work 02/01/23 02/11/23 Yvonne Montana [address] [place] [address] [facility] Community Health Worker 02/25/23 06/09/23 Dennis Temple MBBS [address] [place] [address] [email or web address] Primary Oncologist Hematology and Oncology 04/02/23 Gabriela Barnhart CNP 30 [place] [address] Nurse Practitioner Medical Oncology 01/16/24 documented as of this encounter Additional Source Comments The information contained in this document represents components of the legal health record. It is not the complete legal health record.[facility]
--- OUTSIDE RECORDS SUMMARY | 2025-03-29 07:12 | XMS_ITS | Encounter Summary ---
Author Organization [facility] Address [address] [place] [address] Phone Care Team Providers Care Orthotist/Prosthetist Name Role Phone Temple, Ahmastu Mccann MBBS Unavailable Pack, Gabriela PHYSICAL FITNESS TRAINER Unavailable Cj Meyer DO Primary Care Provider [phone] Encounter Details Date Type Department Care Team (Late st Contact Info) Description 11/07/2024 Procedure Pass [facility], Ct Scan - [address] [address] Social History Tobacco Use Types Packs/Day Years [...] Description 03/29/2025 10:15 AM EDT Office Visit [facility] [address] [place] [address] 3rd Floor, [address] [place] [address] Zack Sanchez, DO 22 [facility] [address] [place] [address] 05/14/2025 1:00 PM EST Office Visit [facility] [address] [place] [address] 3rd Floor, [address] [place] [address] Rehan Landaverde MD 50 [place] [address] 09/13/2025 9:30 AM EDT Office Visit [facility] 10 [facility] [place] [address] Conner Sneed MD 10 [facility] 2nd [place] [address] [email or web address] Scheduled Procedures Name Priority Associated Diagnoses Date/Ti me 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 IN OFFSET PLATE MAKER Systolic congestive heart failure, unspecified HF chronicity documented as of this encounter Visit Diagnoses Not on filedocumented in this encounter Additional Health Concerns Assessment Noted Time PHQ-2 Depression Total Score: 2 03/28/20 22 11:32 AM EDT documented as of this encounter Care Teams Orthotist/Prosthetist Relationship Specialty Start Date End Date Cj Meyer DO [address] [place] [address] PCP - General Internal Medicine 08/08/24 Dennis Temple MBBS [email or web address] Primary Oncologist Hematology and Oncology 04/02/23 Gabriela Barnhart CNP 30 [place] [address] Nurse Practitioner Medical Oncology 01/16/24 documented as of this encounter Additional Source Comments The information contained in this document represents components of the legal health record. It is not the complete legal health record.[facility]
--- OUTSIDE RECORDS SUMMARY | 2025-03-29 07:12 | XMS_ITS | Encounter Summary ---
Author Organization [facility] Address [address] [facility] [address] [place] [address] Phone Care Team Providers Care Call Or Contact Centre Coach Name Role Phone Marlene Harden NP Primary Care Provider [phone] Dennis Temple MBBS Unavailable [phone] Gabriela Barnhart KARATE TEACHER Unavailable Cj Meyer DO Primary Care Provider Reason for Referral * MRI/CAT Scan - Closed Specialty Diagnoses / Procedures Referred By Contflorentin t Referred To Contact Radiology Diagnoses Cigarette smoker Procedures CT Chest Lung Cancer Screening Initial Or Annual Marlene Harden NP Phone: tel: Referral ID Status Reason Start Date Expiration Date Visits Re quested Visits Authorized [id number] Closed 10/03/2023 10/02/2024 1 1 Encounter Details Date Type Department Care Team (Latest Contact Info) Description 10/03/2023 Transcribe Orders Virtual Department 30 [place] [address] Marlene Harden NP [address] [place], [place] [phone] Cigarette smoker (Primary Dx) Social History Tobacco [...] Description 03/29/2025 10:15 AM EDT Office Visit [facility] [address] 3rd Floor, [address] [place] [address] Zack Sanchez DO 22 [facility] [address] [place] [address] 05/14/2025 1:00 PM EST Office Visit [facility] [address] 3rd Floor, [address] [place] [address] Rehan Landaverde MD [address] [place] [address] 09/13/2025 9:30 AM EDT Office Visit [facility] 10 [place] [address] Conner Sneed MD [address] [place] [address] [email or web address] Scheduled Procedures Name Priority Associated Diagnoses Date/Ti tn 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 IN CLIPPING MARKER Systolic congestive heart failure, unspecified HF chronicity [...] for this examination in [facility]: Lung Cancer Screening - CURRENT smoker (20+ [...] for this examination in [facility]:Lung Cancer Screening - CURRENT smoker (20+ pk-yrs, [...] categories can be found at:[email or web address] Marlene Harden PRIVATE TUTOR IMG CT CHEST Final Result documented in [...] documented as of this encounter Care Teams Call Or Contact Centre Coach Relationship Specialty Start Date End Date Marlene Harden NP 70 [place] [address] PCP - General Family Medicine 01/10/22 08/07/24 Cj Meyer DO 70 [place] [address] PCP - General Internal Medicine 08/08/24 Dennis Temple MBBS 70 [place] [address] [email or web address] [email or web address] Primary Oncologist Hematology and Oncology 04/02/23 Gabriela Barnhart CNP [address] [place] [address] (work) [email or web address] Nurse Practitioner Medical Oncology 01/16/24 documented as of this encounter Additional Source Comments The information contained in this document represents components of the legal health record. It is not the complete legal health record.[facility]
--- OUTSIDE RECORDS SUMMARY | 2025-03-29 07:12 | XMS_ITS | Encounter Summary ---
Author Organization [facility] Address [address] [place] [address] Phone Care Team Providers Care Stratigraphy Teacher Name Role Phone Dereck Marlene Mook GENERAL UTILITY WORKER Primary Care Provider Dennis Temple MBBS Unavailable [phone] Gabriela Barnhart CHEMISTRY TEACHER Unavailable jC Meyer DO Primary Care Provider Encounter Details Date Type Department Care Team (Late st Contact Info) Description 07/28/2024 Procedure Pass [facility], Ct Scan - [address] [id number] Social History Tobacco Use Types Packs/Day Years [...] 07/28/2024 9:13 PM Adrian Melo RN * [facility] Suicide Severity Rating Scale (Screener/Recent Self-Report) Question Answer Date of Assessment Author 1. Wish to be (Past 1 Month) No 07/28/2024 9:13 PM Adrian Estes, VENKATA 6. Suicidal Behavior (Lifetime) No 07/28/2024 9:13 PM Adrian Estes, VENKATA documented as of this encounter Plan of Treatment Upcoming Encounters Date Type Department Care Team ([facility] st Contact Info) Description 03/29/2025 10:15 AM EDT Office Visit [facility] [address] [facility], [address] [place] [address] Zack Sanchez DO [address] [place] [address] [place] [address] 05/14/2025 1:00 PM EST Office Visit [address] [facility], [address] [place] [address] Rehan Landaverde MD [address] [place] [address] 09/13/2025 9:30 AM EDT Office Visit [facility] 10 [place] [address] Conner Sneed MD [address] [place] [address] [email or web address] Scheduled Procedures Name Priority Associated Diagnoses Date/Ti me 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 IN STEEL CONSTRUCTION WORKER Systolic congestive heart failure, unspecified HF chronicity [...] documented as of this encounter Care Teams Stratigraphy Teacher Relationship Specialty Start Date End Date Marlene Harden NP 70 [place] [address] PCP - General Family Medicine 01/10/22 08/07/24 Cj Meyer DO 70 [place] [address] PCP - General Internal Medicine 08/08/24 Dennis eTmple MBBS 70 [place] [address] [email or web address] Primary Oncologist Hematology and Oncology 04/02/23 Gabriela Barnhart CNP 30 [place] [address] [email or web address] Nurse Practitioner Medical Oncology 01/16/24 documented as of this encounter Additional Source Comments The information contained in this document represents components of the legal health record. It is not the complete legal health record.[facility]
--- OUTSIDE RECORDS SUMMARY | 2025-03-29 07:13 | XMS_ITS | Encounter Summary ---
Author Organization [facility] Address [address] [facility] [address] [place] [address] Phone Care Team Providers Care Evidence Specialist Name Role Phone Olegario Guy MD Primary Care Provider Marlene Harden NP Primary Care Provider Yue Rodrigez RN Unavailable Jennifer Dash DIRECTOR OF ANALYTICAL DEVELOPMENT Unavailable ndelabar Yvonne Montana Unavailable Dennis Temple MBBS Unavailable Gabriela Barnhart 911 DISPATCHER Unavailable Cj Meyer DO Primary Care Provider [phone] Reason for Referral * MRI/CAT Scan - Closed Specialty Diagnoses / Procedures Referred By Contflorentin t Referred To Contact Radiology Diagnoses Abnormal chest x-ray Procedures CT Chest Marlene Harden NP Phone: tel: Referral ID Status Reason Start Date Expiration Date Visits Re quested Visits Authorized [id number] Closed 01/05/2022 01/05/2023 1 1 Encounter Details Date Type Department Care Team (Latest Contact Info) Description 01/05/2022 Transcribe Orders Virtual Department 30 [place] [address] Marlene Harden NP [address] [place] [address] Abnormal chest x-ray (Primary Dx) Social History [...] Description 03/29/2025 10:15 AM EDT Office Visit [facility] [address] 3rd [facility], [address] [place] [address] Zack Sanchez DO 22 [facility] [address] [place] [address] 05/14/2025 1:00 PM EST Office Visit [address] 3[address] Floor, [address] [place] [address] Rehan Landaverde MD [address] [place] [address] 09/13/2025 9:30 AM EDT Office Visit [facility] [address] [place] [address] Conner Sneed MD [address] [place] [address] [email or web address] Scheduled Procedures Name Priority Associated Diagnoses Date/Ti me 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 IN DETECTIVE BOWLING ALLEY Systolic congestive heart failure, unspecified HF chronicity [...] CT chest in 6-8 weeks. Marlene Harden LEGAL PROJECT MANAGER IMG CT CHEST Final Result documented [...] documented as of this encounter Care Teams Evidence Specialist Relationship Specialty Start Date End Date Olegario Guy MD [address] [place] [address] [address] [place] [address] [email or web address] PCP - General Family Medicine 03/28/20 01/09/22 Marlene Harden NP 70 [place] [address] PCP - General Family Medicine 01/10/22 08/07/24 Cj Meyer DO 70 [place] [address] PCP - General Internal Medicine 08/08/24 Yue Rodrigez, RN [address] [place] [address] [email or web address] [facility] Support Group Manager 02/21/22 06/09/23 Jennifer Dash LCSW [address] [place] [address] [email or web address] [facility] Social Work 02/01/23 02/11/23 Yvonne Montana [address] [place] [address] [email or web address] [facility] Community Health Worker 02/25/23 06/09/23 Dennis Temple MBBS [address] [place] [address] [email or web address] Primary Oncologist Hematology and Oncology 04/02/23 Gabriela Barnhart CNP [address] [place] [address] [email or web address] Nurse Practitioner Medical Oncology 01/16/24 documented as of this encounter Additional Source Comments The information contained in this document represents components of the legal health record. It is not the complete legal health record.[facility]
--- OUTSIDE RECORDS SUMMARY | 2025-03-29 07:13 | XMS_ITS | Encounter Summary ---
Author Organization [facility] Address [address] [facility] [address] [place] [address] Phone Care Team Providers Care House Painter Name Role Phone Marlene Harden INSURANCE PROCESSING CLERK Primary Care Provider [phone] Yue Rodrigez RN Unavailable Jennifer Dash RESERVOIR ENGINEERING CONSULTANT Unavailable felisa Yvonne Montana Unavailable Dennis Temple MBBS Unavailable [phone] Gabriela Barnhart TENANT RELATIONS COORDINATOR Unavailable Cj Meyer DO Primary Care Provider [phone] Encounter Details Date Type Department Care Team (Late st Contact Info) Description 02/20/2022 Procedure Pass [facility] [address] [place] [address] Social History Tobacco Use Types Packs/Day [...] Elizabeth Spears RN 2. Non-Specific Active Suici megahn Thoughts (Past 1 Month) No 02/20/2022 11:20 AM EDT Keli Spears RN 6. Suicidal Behavior (Lifetime) No 11:20 AM EDT Elizabeth Spears RN documented as of this encounter Plan of Treatment Upcoming Encounters Date Type Department Care Team ([facility] st Contact Info) Description 03/29/2025 10:15 AM EDT Office Visit [facility] [address] [facility], [address] [place] [address] Zack Sanchez DO [address] [place] [address] [place] [address] 05/14/2025 1:00 PM EST Office Visit [address], [address] [place] [address] Rehan Landaverde MD [address] [place] [address] 09/13/2025 9:30 AM EDT Office Visit [facility] 10 [place] [address] Conner Sneed MD [address] [place] [address] [email or web address] Scheduled Procedures Name Priority Associated Diagnoses Date/Ti me 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 IN IMPORT DISPATCHER Systolic congestive heart failure, unspecified HF chronicity [...] documented as of this encounter Care Teams House Painter Relationship Specialty Start Date End Date Marlene Harden NP 70 [place] [address] PCP - General Family Medicine 01/10/22 08/07/24 Cj Meyer DO [address] [place] [address] PCP - General Internal Medicine 08/08/24 Yue Rodrigez, VENKATA [address] [place] [address] [email or web address] [facility] Collar Starcher 02/21/22 06/09/23 Jennifer Dash LCSW [address] [place] [address] [email or web address] [facility] Social Work 02/01/23 02/11/23 Yvonne Montana [address] [place] [address] [email or web address] [facility] Community Health Worker 02/25/23 06/09/23 Dennis Temple MBBS [address] [place] [address] [email or web address] Primary Oncologist Hematology and Oncology 04/02/23 Gabriela Barnhart CNP [address] [place] [address] [email or web address] Nurse Practitioner Medical Oncology 01/16/24 documented as of this encounter Additional Source Comments The information contained in this document represents components of the legal health record. It is not the complete legal health record.[facility]
--- OUTSIDE RECORDS SUMMARY | 2025-03-29 07:13 | XMS_ITS | Encounter Summary ---
Author Organization [facility] Address [address] [facility] [address] [place] [address] Phone Care Team Providers Care Greenbelt Name Role Phone Olegario Guy MD Primary Care Provider Marlene Harden STOVE CLEANER Primary Care Provider Yue Rodrigez RN Unavailable Jennifer Dash TYPESETTERS PRINTER Unavailable ndelabar Yvonne Montana Unavailable Dennis Temple MBBS Unavailable [phone] Gabriela Barnhart PROFESSIONAL HEALTHCARE REPRESENTATIVE Unavailable Cj Meyer DO Primary Care Provider Encounter Details Date Type Department Care Team (Latest Contact Info) Description 01/02/2022 Transcribe Orders Virtual Department 30 [place] [address] Marlene Harden, CAM [address] [place], [place] [phone] Shortness of breath (Primary Dx); Dyspnea, unspecified [...] 03/29/2025 10:15 AM EDT Office Visit [facility] [address] 3[address] Floor, [address] [place] [address] Zack Sanchez DO 22 [facility] [address] [place] [address] 05/14/2025 1:00 PM EST Office Visit [facility] [address] Floor, [address] [place] [address] Rehan Landaverde MD [address] [place] [address] 09/13/2025 9:30 AM EDT Office Visit [facility] Pulmonary, Allergy and Critical Care Medicine 10 [place] [address] Conner Sneed MD [address] [place] [address] [email or web address] Scheduled Procedures Name Priority Associated Diagnoses Date/Ti me 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 IN GAS STATION SUPERVISOR Systolic congestive heart failure, unspecified HF chronicity documented as of this encounter Results * Pulmonary Function Test Reason for Exam: Dyspnea/Shortness of Breath; Type of PFT Test: Spirometry with bronchodilator, DLCO, Lung Volumes; Performing Location: [facility] (05/21/2022 3:49 PM EST) FEV1 1.08 [...] documented as of this encounter Care Teams Greenbelt Relationship Specialty Start Date End Date Olegario Guy MD [address] [facility] [address] [place] [address] [email or web address] PCP - General Family Medicine 03/28/20 01/09/22 Marlene Harden, STOVE CLEANER 70 [place] [address] PCP - General Family Medicine 01/10/22 08/07/24 Cj Meyer DO [address] [place] [address] PCP - General Internal Medicine 08/08/24 Yue Rodrigez, VENKATA [address] [place] [address] [facility] Boat Driver 02/21/22 06/09/23 Jennifer Dash LCSW [address] [place] [address] [facility] Social Work 02/01/23 02/11/23 Yvonne Montana [address] [place] [address] [email or web address] [facility] Community Health Worker 02/25/23 06/09/23 Dennis Temple MBBS [address] [place] [address] [email or web address] Primary Oncologist Hematology and Oncology 04/02/23 Gabriela Barnhart CNP [address] [place] [address] Nurse Practitioner Medical Oncology 01/16/24 documented as of this encounter Additional Source Comments The information contained in this document represents components of the legal health record. It is not the complete legal health record.[facility]
--- OUTSIDE RECORDS SUMMARY | 2025-03-29 07:13 | XMS_ITS | Encounter Summary ---
Author Organization [facility] Address [address] [facility] [address] [place] [address] Phone Care Team Providers Care Soap Worker Name Role Phone Olegario Guy MD Primary Care Provider [phone] Marlene Harden NP Primary Care Provider [phone] Yue Rodrigez RN Unavailable Jennifer Dash DIRECTOR OF COMMUNICATIONS Unavailable ndelabar Yvonne Montana Unavailable Dennis Temple MBBS Unavailable [phone] Gabriela Barnhart TREE PRUNER Unavailable Cj Meyer DO Primary Care Provider [phone] Reason for Referral * MRI/CAT Scan - Closed Specialty Diagnoses / Procedures Referred By Contac t Referred To Contact Radiology Diagnoses Cervical radiculopathy Procedures MRI Cervical Spine Jie Wu NP Phone: tel: fax: [email or web address] Referral ID Status Reason Start Date Expiration Date Visits Re quested Visits Authorized [id number] Closed 03/21/2020 04/04/2020 1 1 Encounter Details Date Type Department Care Team (Latest Contact Info) Description 03/28/2020 Transcribe Orders [address] [address] Jie Wu NP [address] [place] [phone] [email or web address] Cervical radiculopathy (Primary Dx) Social History Tobacco [...] Upcoming Encounters Date Type Department Care Team ([facility] st Contact Info) Description 03/29/2025 10:15 AM EDT Office Visit [facility] [address] [place] [address], [address] [address] Zack Sanchez DO [address] [place] [address] 05/14/2025 1:00 PM EST Office Visit [facility] [address], [address] [address] Rehan Landaverde MD [address] [place] [address] 09/13/2025 9:30 AM EDT Office Visit [facility] 10 [place] [address] Conner Sneed MD [address] [place] [address] [email or web address] Scheduled Procedures Name Priority Associated Diagnoses Date/Ti me 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 IN MARINE FISHERIES TECHNICIAN Systolic congestive heart failure, unspecified HF [...] documented as of this encounter Care Teams Soap Worker Relationship Specialty Start Date End Date Olegario Guy MD [address] [place] [address] [address] [place] [phone] [email or web address] PCP - General Family Medicine 03/28/20 01/09/22 Marlene Harden NP [address] [place] [address] PCP - General Family Medicine 01/10/22 08/07/24 Cj Meyer DO [address] [place] [address] PCP - General Internal Medicine 08/08/24 Yue Rodrigez, RN [address] [place] [address] [facility] Laboratory Chief 02/21/22 06/09/23 Jennifer Dash LCSW [address] [place] [address] [facility] Social Work 02/01/23 02/11/23 Yvonne Montana [address] [place] [address] [email or web address] [facility] Community Health Worker 02/25/23 06/09/23 Dennis Temple MBBS [address] [place] [address] [email or web address] Primary Oncologist Hematology and Oncology 04/02/23 Gabriela Barnhart CNP [address] [place] [address] [email or web address] Nurse Practitioner Medical Oncology 01/16/24 documented as of this encounter Additional Source Comments The information contained in this document represents components of the legal health record. It is not the complete legal health record.[facility]
--- OUTSIDE RECORDS SUMMARY | 2025-03-29 07:13 | XMS_ITS | Encounter Summary ---
Author Organization [facility] Address [address] [facility] [address] [place] [address] Phone Care Team Providers Care Linotype Operator Name Role Phone Marlene Harden NP Primary Care Provider [phone] Yue Rodrigez RN Unavailable Yvonne Montana Unavailable [email or web address] Dennis Temple MBBS Unavailable [phone] Gabriela Barnhart AGRICULTURAL REAL ESTATE AGENT Unavailable Cj Meyer DO Primary Care Provider [phone] Encounter Details Date Type Department Care Team (Late st Contact Info) Description 02/22/2023 Procedure Pass [facility] Endoscopy Admitting Dept Virtual Department 30 [place] [address] Social History Tobacco Use Types Packs/Day Years [...] Description 03/29/2025 10:15 AM EDT Office Visit [facility] [address], [address] [place] [address] Zack Sanchez DO [address] [place] [address] [place] [address] 05/14/2025 1:00 PM EST Office Visit [facility] [address] 3rd [facility], [address] [place] [address] Rehan Landaverde MD [address] [place] [address] 09/13/2025 9:30 AM EDT Office Visit [facility] 10 [place] [address] Conner Sneed MD [address] [place] [address] [email or web address] Scheduled Procedures Name Priority Associated Diagnoses Date/Ti me 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 IN ORTHO NURSE Systolic congestive heart failure, unspecified HF [...] documented as of this encounter Care Teams Linotype Operator Relationship Specialty Start Date End Date Marlene Harden NP 70 [place] [address] PCP - General Family Medicine 01/10/22 08/07/24 Cj Meyer DO 70 [place] [address] PCP - General Internal Medicine 08/08/24 Yue Rodrigez RN [address] [place] [address] [email or web address] Dry House Worker 02/21/22 06/09/23 Yvonne Montana 10 [place] [address] [facility] Community Health Worker 02/25/23 06/09/23 Dennis Temple MBBS [address] [place] [address] [email or web address] Primary Oncologist Hematology and Oncology 04/02/23 Gabriela Barnhart CNP [address] [place] [address] Nurse Practitioner Medical Oncology 01/16/24 documented as of this encounter Additional Source Comments The information contained in this document represents components of the legal health record. It is not the complete legal health record.[facility]
--- OUTSIDE RECORDS SUMMARY | 2025-03-29 07:13 | XMS_ITS | Clinical Summary ---
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 Assessment & Plan (11/06/2024 4:37 PM EDT): -last stable in Aug on lasix 40 mg qd entresto 24-26 mg bid Most recent echo July showed recovered EF 65 to 70% general good cardiac function. Do not see any additional echocardiograms on the discharge paperwork from [facility] or [facility] where he has been. -gaining wt at long-term and seemed to be overdiuresed in recent [...] general good cardiac function -gaining wt at long-term and seemed to be overdiuresed in recent [...] 70% general good cardiac function During his long-term stay stay 1 month well being significantly [...] stable Also has been on steroids at long-term. This may be contributing to his weight [...] stable Also has been on steroids at long-term. Continue trellegy and duonebs. Chronic pain Continue chronic oxy Assessment & Plan (11/05/2024 1:26 AM EDT): Chronic COPD on home O2 2L and stable Also has been on steroids at long-term. Continue trellegy and duonebs. 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 Immediately prior to that patient had a hospitalization for COPD exacerbation and suspected seizure where patient was placed on Keppra. Was discharged on 08/03/2024 to rehab however redeveloped worsening headache, found to have worsening vasogenic edema and subsequently readmitted at [facility] on 08/08/2024. Hospital course was complicated by COPD exacerbation secondary to RSV virus with patient was subsequently discharged on a steroid taper to [facility] rehab. -- No new concerns. His DOAC [...] initial hospitalization 07/30/2024, after initially presenting to [facility] and had findings of acute bleed. Immediately prior to that patient had a hospitalization for COPD exacerbation and suspected seizure where patient was placed on Keppra. -Was discharged on 08/03/2024 to rehab however redeveloped worsening headache, found to have worsening vasogenic edema and subsequently readmitted at [facility] on 08/08/2024. Hospital course was complicated by COPD exacerbation secondary to RSV virus with patient was subsequently discharged on a steroid taper to [facility] rehab. -Through reviewing discharge records from [facility] on 08/13/2024, recommendations from neurology were [...] or leukocytosis -Ceftriaxone azithromycin -repeat chest x-ray -ekg monitor tech -Supplemental oxygen Other hyperlipidemia 06/18/2024 Assessment & [...] in late September until now -labs from long-term 11 down to 7s, now in 8s. [...] weeks in september until now -labs from long-term 11 down to 7s, now in 8s, [...] september until now Labs provided by the long-term reveal a drop in hemoglobin during that [...] per recommendations from neurology from [facility] upon discharge with instructions to discontinue aspirin. -- Continue Toprol-XL, amiodarone rivaroxaban Assessment & Plan (08/30/2024 6:01 PM EST): Continue amiodarone, metoprolol 50 mg, Xarelto 20 mg. Patient resume Xarelto on 08/26/2024 per recommendations from neurology from [facility] upon discharge with instructions to discontinue [...] PM EST): With rapid ventricular response. His colorer machine, Dr. Morales started him on amiodarone 05/26 [...] however, shared decision to send patient to [facility] ED for evaluation/treatment to monitor [...] improvement, no ICD was recommended. Follow-up with colorer machine in 3 months once resulted, sooner for [...] Pulmonary, Allergy and Critical Care Medicine [address] [place] [address] Conner Sneed MD Former smoker; Pulmonary emphysema, unspecified emphysema type 03/16/2025 Telephone [facility], [facility] [address] [place] [address] GuyCindy manriquez POC order 03/11/2025 Refill [facility] [address] [place] [address] Conner Sneed MD Medication Refill 03/03/2025 Telephone [facility] [address] Floor, [address] [place] [address] Bailey Ocasio 01/22/2025 3:40 PM EDT Office Visit [facility] [address] Floor, [address] [place] [address] Rehan Landaverde MD Paroxysmal atrial fibrillation (Primary [...] Description 03/29/2025 10:15 AM EDT Office Visit [facility] [address] [facility], [address] [place] [address] Zack Sanchez DO [address] [place] [address] [place] [address] 05/14/2025 1:00 PM EST Office Visit [facility] [address], [address] [place] [address] Rehan Landaverde MD [address] [place] [address] 09/13/2025 9:30 AM EDT Office Visit [facility] [address] [facility] [place] [address] [place] [address] Conner Sneed MD [address] [place] [address] [email or web address] Scheduled Procedures Name Priority Associated Diagnoses Date/Ti me 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 IN DIELECTRIC PRESS OPERATOR Systolic congestive heart failure, unspecified [...] this topic Medical Devices Implanted Type Area Collection Systems Modeler Device Identifier Shelf Expiration Date Model / [...] clinician's provided indication for this examination in [facility]: Lung Cancer Screening - FORMER smoker, quit [...] clinician's provided indication for this examination in [facility]:Lung Cancer Screening - FORMER smoker, quit in [...] EDT) TSH 3.65 0.27 - 4.20 uIU/mL [facility] Blood 11/07/2024 5:31 AM EDT 11/07/2024 6:00 AM EDT us Giuliano Adan MD LAB BLOOD ORDERABLES Final Result [address] [address] * (ABNORMAL) Comprehensive metabolic panel (11/05/2024 5:57 AM EDT) SODIUM 139 133 - 146 mmol/L [facility] POTASSIUM 3.6 3.3 - 5.1 mmol/L [facility] CHLORIDE 97 96 - 108 mmol/L [facility] CO2 32 21 - 35 mmol/L [facility] BUN 39(H) 6 - 19 mg/dL [facility] CREATININE 1.90(H) 0.5 - 1.5 mg/dL [facility] GLUCOSE 112(H) 70 - 99 mg/dL [facility] ALBUMIN 3.2(L) 3.9 - 4.8 g/dL [facility] TOTAL PROTEIN 6.2(L) 6.5 - 8.0 g/dL [facility] CALCIUM 8.5 8.4 - 10.3 mg/dL [facility] ALKALINE PHOSPHATASE 91 39 - 117 U/L [facility] TOTAL BILIRUBIN <0.2 0.0 - 1.2 mg/dL [facility] AST 16 0 - 37 U/L [facility] ALT 14 0 - 40 U/L [facility] GLOBULIN 3.0 1 - 4.8 g/dL [facility] EGFR 40(L) >59 mL/min/1.7 3m2 [facility] Comment:Estimated glomerular filtration rate calculated using the CKD-EPI refit equation. ANION GAP 14 10 - 20 mmol/L [facility] Blood 11/05/2024 5:57 AM EDT 11/05/2024 6:34 AM EDT us Anastacia Dietrich MD LAB BLOOD ORDERABLES Final Result Performing Organization Address [facility]/ZIP Co de Phone Number [address] [address] * ENDOSCOPY, COLON (02/22/2023 1:37 PM EDT) Narrative Transcriptions Ioana Armijo MD - 02/22/2023 1:37 PM EDT [facility] Patient Name: Yousif Orellana Attending MD:: IOANA ARMIJO MD, Procedure Date: 02/22/2023 1:37 PM Date of : 1965 Age: 57 Admit Type: Inpatient Gender: Male Room: [place] [address] Referring MD: SHANIKA MONTEMAYOR NP Exam Type: [...] 1:37 PM Procedure Code(s): --- Professional --- 71529, Colonoscopy, flexible; diagnostic, including collection of specimen(s) by brushing or washing, when performed (separateprocedure) --- Technical --- 79840, Colonoscopy, flexible; diagnostic, including collection of specimen(s) by brushing or washing, when performed (separateprocedure) Diagnosis Code(s): --- Professional --- D50.9, Iron deficiency anemia, unspecified --- Technical --- D50.9, Iron deficiency anemia, unspecified CPT copyright 2021 [employer]. All rights reserved. The codes documented in this report are preliminary and upon bank analyst reviewmay be revised to meet current compliance requirements. Procedure Date: 02/22/2023 1:37:[address] [place] [address] Shanika Montemayor NP GI PROCEDURE ORDERABLES Final R esult from Last 3 Months or Most Recently Relevant to Health Maintenance Insurance [employer] MEDICARE PART A & B [place] [facility] [id number] MEDICARE PART A & B [place] & B [facility] MEDICARE PART A & B MEDICARE PART A & B [facility] Advance Directives For more information, please contact: [phone] (9AM - 5PM Mona/[facility], Saturday-Saturday) Documents on File Type Date Recorded Patient Art Sales Consultant Expl anation Healthcare Proxy 07/22/2024 3:40 PM [...] Agent (Proxy form on file) Care Teams Tank Filler Relationship Specialty Start Date End Date Cj Meyer DO [address] [place] [address] PCP - General Internal Medicine 08/08/24 Dennis Temple MBBS [email or web address] Primary Oncologist Hematology and Oncology 04/02/23 Gabriela Barnhart CNP [address] [place] [address] [email or web address] Nurse Practitioner Medical Oncology 01/16/24 Additional Source Comments The information contained in this document represents components of the legal health record. It is not the complete legal health record.[facility]
--- OUTSIDE RECORDS SUMMARY | 2025-03-29 07:13 | XMS_ITS | Encounter Summary ---
Author Organization [facility] Address [address] [facility] [address] [place] [address] Phone Care Team Providers Care Dispatch Machine Runner Name Role Phone Olegario Guy MD Primary Care Provider [phone] Marlene Harden NP Primary Care Provider [phone] Yue Rodrigez RN Unavailable Jennifer Dash CAR WHACKER Unavailable ndelabar Yvonne Montana Unavailable Dennis Temple MBBS Unavailable Gabriela Barnhart SERVICE RIG OPERATOR Unavailable Cj Meyer DO Primary Care Provider Encounter Details Date Type Department Care Team (Late st Contact Info) Description 03/28/2020 Procedure Pass [facility], [address] [address] Social History Tobacco Use Types Packs/Day Years [...] Description 03/29/2025 10:15 AM EDT Office Visit [facility] [address] [facility], [address] [place] [address] Zack Sanchez DO [address] [facility] [address] [place] [address] 05/14/2025 1:00 PM EST Office Visit [facility] [address] [facility] [address] [facility], [address] [place] [address] Rehan Landaverde MD [address] [place] [address] 09/13/2025 9:30 AM EDT Office Visit [facility] [address] [place] [address] Conner Sneed MD [address] [place] [address] [email or web address] Scheduled Procedures Name Priority Associated Diagnoses Date/Ti me 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 IN COATING AND BAKING OPERATOR Systolic congestive heart failure, unspecified HF [...] documented as of this encounter Care Teams Dispatch Machine Runner Relationship Specialty Start Date End Date Olegario Guy MD [address] [facility] [address] [place] [address] [email or web address] PCP - General Family Medicine 03/28/20 01/09/22 Marlene Harden NP [address] [place] [address] PCP - General Family Medicine 01/10/22 08/07/24 Cj Meyer DO [address] [place] [address] PCP - General Internal Medicine 08/08/24 Yue Rodrigez, VENKATA [address] [place] [address] [facility] Maintenance Technician 02/21/22 06/09/23 Jennifer Dash LCSW [address] [place] [address] [facility] Social Work 02/01/23 02/11/23 Yvonne Montana [address] [place] [address] [facility] Community Health Worker 02/25/23 06/09/23 Dennis Temple MBBS [address] [place] [address] [email or web address] Primary Oncologist Hematology and Oncology 04/02/23 Gabriela Barnhart CNP [address] [place] [address] [email or web address] Nurse Practitioner Medical Oncology 01/16/24 documented as of this encounter Additional Source Comments The information contained in this document represents components of the legal health record. It is not the complete legal health record.[facility]
--- OUTSIDE RECORDS SUMMARY | 2025-03-29 07:13 | XMS_ITS | Encounter Summary ---
Author Organization [facility] Address [address] [place] [address] Phone Care Team Providers Care Letterpress Setter Name Role Phone Olegario Guy MD Primary Care Provider [phone] Marlene Harden NP Primary Care Provider Yue Rodrigez RN Unavailable Jennifer Dash DATA REVIEW SPECIALIST Unavailable ndelabar Yvonne Montana Unavailable Dennis Temple MBBS Unavailable Gabriela Barnhart SUPERINTENDENT ELECTRIC POWER Unavailable Cj Meyer DO Primary Care Provider Encounter Details Date Type Department Care Team (Late st Contact Info) Description 01/05/2022 Procedure Pass [facility], Ct Scan - [address] [address] Social History Tobacco Use Types Packs/Day Years [...] Description 03/29/2025 10:15 AM EDT Office Visit [facility] [address], [address] [place] [address] Zack Sanchez DO [address] [facility] [address] [place] [address] 05/14/2025 1:00 PM EST Office Visit [facility] 22 [facility] 3rd [facility], [address] [place] [address] Rehan Landaverde MD [address] [place] [address] 09/13/2025 9:30 AM EDT Office Visit [facility] 10 [place] [address] Conner Sneed MD [address] [place] [address] [email or web address] Scheduled Procedures Name Priority Associated Diagnoses Date/Ti me 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 IN PRESBYTERIAN CLERGY Systolic congestive heart failure, unspecified HF chronicity [...] documented as of this encounter Care Teams Letterpress Setter Relationship Specialty Start Date End Date Olegario Guy MD 230 [facility] [address] [place] [phone] [email or web address] PCP - General Family Medicine 03/28/20 01/09/22 Marlene Harden NP [address] [place], [place] PCP - General Family Medicine 01/10/22 08/07/24 Cj Meyer DO [address] [place] [address] PCP - General Internal Medicine 08/08/24 Yue Rodrigez RN [address] [place] [address] [facility] Cylinder Block Mechanic 02/21/22 06/09/23 Jennifer Dash LCSW [address] [place] [address] [facility] Social Work 02/01/23 02/11/23 Yvonne Montana [address] [place] [address] [email or web address] [facility] Community Health Worker 02/25/23 06/09/23 Dennis Temple MBBS [address] [place] [address] [email or web address] Primary Oncologist Hematology and Oncology 04/02/23 Gabriela Barnhart CNP [address] [place] [address] [email or web address] Nurse Practitioner Medical Oncology 01/16/24 documented as of this encounter Additional Source Comments The information contained in this document represents components of the legal health record. It is not the complete legal health record.[facility]
--- OUTSIDE RECORDS SUMMARY | 2025-03-29 07:13 | XMS_ITS | Encounter Summary ---
Author Organization [facility] Address [address] [facility] [address] [place] [address] Phone Care Team Providers Care Senior Power Scheduler Name Role Phone Olegario Guy MD Primary Care Provider Marlene Harden NP Primary Care Provider [phone] Yue Rodrigez RN Unavailable Jennifer Dash EXTRACTOR OPERATOR Unavailable ndelabar Yvonne Montana Unavailable Dennis Temple MBBS Unavailable Gabriela Barnhart LIGHTNING ROD INSTALLER Unavailable Cj Meyer DO Primary Care Provider Encounter Details Date Type Department Care Team (Latest Contact Info) Description 03/28/2020 Transcribe Orders Virtual Department 30 [place] [address] Jie Wu NP [address] [place] [phone] [email or web address] Neck pain (Primary Dx) Social History Tobacco [...] Description 03/29/2025 10:15 AM EDT Office Visit [facility] [address] Floor, [address] [place] [address] Zack Sanchez DO 22 [facility] [address] [place] [address] 05/14/2025 1:00 PM EST [facility] [address], [address] [place] [address] Rehan Landaverde MD [address] [place] [address] 09/13/2025 9:30 AM EDT Office Visit [facility] 10 [place] [address] Conner Sneed MD [address] [place] [address] [email or web address] Scheduled Procedures Name Priority Associated Diagnoses Date/Ti me 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 IN BRAND COMMUNICATIONS MANAGER Systolic congestive heart failure, unspecified HF [...] stable. No evidence of instability. POS - [id number] Narrative 04/01/2020 9:03 AM EDT HISTORY: Left [...] is stable. No evidence ofinstability. POS - [id number] Jie Wu NP IMG XR SPINE Final [...] documented as of this encounter Care Teams Senior Power Scheduler Relationship Specialty Start Date End Date Olegario Guy MD 230 [facility] [address] [place] [phone] [email or web address] PCP - General Family Medicine 03/28/20 01/09/22 Marlene Harden ENVIRONMENTAL DEPARTMENT MANAGER [address] [place] [address] PCP - General Family Medicine 01/10/22 08/07/24 Cj Meyer DO [address] [place] [address] PCP - General Internal Medicine 08/08/24 Yue Rodrigez, VENKATA [address] [place] [address] [email or web address] [facility] Senior Systems Developer 02/21/22 06/09/23 Jennifer Dash LCSW [address] [place] [address] [email or web address] [facility] Social Work 02/01/23 02/11/23 Yvonne Montana [address] [place] [address] [email or web address] [facility] Community Health Worker 02/25/23 06/09/23 Dennis Temple MBBS [address] [place] [address] [email or web address] Primary Oncologist Hematology and Oncology 04/02/23 Gabriela Barnhart CNP [address] [place] [address] Nurse Practitioner Medical Oncology 01/16/24 documented as of this encounter Additional Source Comments The information contained in this document represents components of the legal health record. It is not the complete legal health record.[facility]
--- OUTSIDE RECORDS SUMMARY | 2025-03-29 07:13 | XMS_ITS | Encounter Summary ---
Author Organization [facility] Address [address] [facility] [address] [place] [address] Phone Care Team Providers Care Compensator Name Role Phone Olegario Guy MD Primary Care Provider Marlene Harden TELECOMMUNICATIONS ADMINISTRATOR Primary Care Provider Yue Rodrigez RN Unavailable Jennifer Dash TAX MANAGER PUBLIC Unavailable ndelabar Yvonne Montana Unavailable Dennis Temple MBBS Unavailable Gabriela Barnhart FINANCE DIRECTOR Unavailable Cj Meyer DO Primary Care Provider [phone] Encounter Details Date Type Department Care Team (Latest Contact Info) Description 11/25/2019 Transcribe Orders Virtual Department 30 [place] [address] Marlene Harden, TELECOMMUNICATIONS ADMINISTRATOR [address] [place], [place] [phone] Atypical chest pain (Primary Dx) Social History [...] Description 03/29/2025 10:15 AM EDT Office Visit [facility] [address] 3rd Floor, [address] [place] [address] Zack Sanchez DO 22 [facility] [address] [place] [address] 05/14/2025 1:00 PM EST Office Visit [facility] [address] 3[address] Floor, [address] [place] [address] Rehan Landaverde MD [address] [place] [address] 09/13/2025 9:30 AM EDT Office Visit [facility] 10 [place] [address] Conner Sneed MD [address] [place] [address] [email or web address] Scheduled Procedures Name Priority Associated Diagnoses Date/Ti me 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 IN LATEX SPOOLER Systolic congestive heart failure, unspecified HF chronicity [...] documented as of this encounter Care Teams Compensator Relationship Specialty Start Date End Date Olegario Guy MD 230 [facility] [address] [place] [address] [email or web address] PCP - General Family Medicine 03/28/20 01/09/22 Marlene Harden, TELECOMMUNICATIONS ADMINISTRATOR [address] [place] [address] PCP - General Family Medicine 01/10/22 08/07/24 Cj Meyer DO [address] [place] [address] PCP - General Internal Medicine 08/08/24 Yue Rodrigez RN [address] [place] [address] [email or web address] [facility] Physician Neonatology 02/21/22 06/09/23 Jennifer Dash LCSW [address] [place] [address] [email or web address] [facility] Social Work 02/01/23 02/11/23 Yvonne Montana [address] [place] [address] [email or web address] [facility] Community Health Worker 02/25/23 06/09/23 Dennis Temple MBBS [address] [place] [address] [email or web address] Primary Oncologist Hematology and Oncology 04/02/23 Gabriela Barnhart CNP [address] [place] [address] [email or web address] Nurse Practitioner Medical Oncology 01/16/24 documented as of this encounter Additional Source Comments The information contained in this document represents components of the legal health record. It is not the complete legal health record.[facility]
--- OUTSIDE RECORDS SUMMARY | 2025-03-29 07:13 | XMS_ITS | Encounter Summary ---
Author Organization [facility] Address [address] [place] [address] Phone Care Team Providers Care Trigonometry Tutor Name Role Phone Marlene Harden DRIVER/MERCHANDISER Primary Care Provider [phone] Yue Rodrigez RN Unavailable Yvonne Montana Unavailable [email or web address] Dennis Temple MBBS Unavailable [phone] Gabriela Barnhart LUGGAGE LINER Unavailable Cj Meyer DO Primary Care Provider [phone] Encounter Details Date Type Department Care Team (Late st Contact Info) Description 03/03/2023 Procedure Pass [facility], Ct Scan - [address] [address] Social History Tobacco Use Types Packs/Day Years [...] No Risk Indicated 03/03/2023 3:07 PM EDT lAycia Mahajan, VENKATA * [place] Suicide Severity Rating Scale (Screener/Recent Self-Report) Question [...] Description 03/29/2025 10:15 AM EDT Office Visit [facility] [address] [place] [address] [place] [address], [address] [place] [address] Zack Sanchez DO [address] [place] [address] [place] [address] 05/14/2025 1:00 PM EST Office Visit [facility] [address] [facility], [address] [place] [address] Rehan Landaverde MD [address] [place] [address] 09/13/2025 9:30 AM EDT Office Visit [facility] 10 [facility] [place] [address] Conner Sneed MD 10 [facility] 2nd [place] [address] [email or web address] Scheduled Procedures Name Priority Associated Diagnoses Date/Ti me 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 IN EMAIL MARKETING MANAGER Systolic congestive heart failure, unspecified HF [...] documented as of this encounter Care Teams Trigonometry Tutor Relationship Specialty Start Date End Date Marlene Harden NP 70 [place] [address] PCP - General Family Medicine 01/10/22 08/07/24 Cj Meyer DO 70 [place] [address] PCP - General Internal Medicine 08/08/24 Yue Rodrigez, VENKATA [address] [place] [address] [email or web address] General Dentist 02/21/22 06/09/23 Yvonne Montana [address] [place] [address] [facility] Community Health Worker 02/25/23 06/09/23 Dennis Temple MBBS [address] [place] [address] [email or web address] Primary Oncologist Hematology and Oncology 04/02/23 Gabriela Barnhart CNP [address] [place] [address] [email or web address] Nurse Practitioner Medical Oncology 01/16/24 documented as of this encounter Additional Source Comments The information contained in this document represents components of the legal health record. It is not the complete legal health record.[facility]
[2025-03-29 07:17] LABS: Hematocrit 31.0 % (42.0-52.0); Hemoglobin 10.0 g/dl (14.0-18.0); Imm Gran Abs Auto 0.24 X10*3/uL (0.00-0.03); Imm Gran Pct Auto 2.5 % (0.0-0.4); Lymphocytes Absolute Auto 2.2 X10*3/uL (1.2-4.9); Mean Corpuscular HGB Conc 32.3 g/dl (31.0-36.0); Mean Corpuscular Hemoglobin 26.1 pg (27.0-33.0); Mean Corpuscular Volume 80.9 fL (80.0-98.0); NRBC Abs Auto 0.000 X10*3/uL (0.0-0.012); NRBC Pct Auto 0.0 /100WBC (0.0-0.2); Platelet Count 291 X10*3/uL (160-400); Red Blood Count 3.83 X10*6/uL (4.60-5.80); White Blood Count 9.6 X10*3/uL (4.8-10.8)
[2025-03-29 07:50] LABS: Anion Gap 13 (12-20); Blood Urea Nitrogen 26 mg/dL (9-16); Calcium 8.9 mg/dL (8.4-10.2); Carbon Dioxide 29 mmol/L (22-29); Chloride 103 mmol/L (96-108); Estimated Glomerular Filt Rate 47; Potassium 4.3 mmol/L (3.3-5.1); Sodium 141 mmol/L (135-145)
== END 2025-03-29 07:11 | disposition home or self-care (01) ==
LOC: HO.MMNH1L 07:10
PROVIDERS: Visit Provider Family Medicine
DX: J96.21 Acute and chronic respiratory failure with hypoxia (principal); J44.1 Chronic obstructive pulmonary disease with (acute) exacerbation; E46 Unspecified protein-calorie malnutrition
CPT/HCPCS: 36415; 80048; 85025

== ENCOUNTER 2025-04-05 06:26 | Outpatient (REF) | payer MEDICARE, SELFPAY ==
[2025-04-05 06:10] LABS: MANUAL DIFF FLAG NO
--- OUTSIDE RECORDS SUMMARY | 2025-04-05 06:32 | XMS_ITS | Encounter Summary ---
Author Organization [facility] Address [address] [place] [address] Phone Care Team Providers Care Valve Inspector Name Role Phone Dereck Marlene Mook SPECIAL FORCES OFFICER Primary Care Provider Dennis Temple MBBS Unavailable Gabriela Barnhart CAD MANAGER Unavailable Cj Meyer DO Primary Care Provider Encounter Details Date Type Department Care Team (Late st Contact Info) Description 07/28/2024 Procedure Pass [facility], Ct Scan - [address] [id number] Social History Tobacco Use Types Packs/Day Years [...] Risk Indicated 07/28/2024 9:13 PM EST Adrian Herrera, VENKATA * [place] Suicide Severity Rating Scale (Screener/Recent Self-Report) Question Answer Date of Assessment Author 1. Wish to be (Past 1 Month) No 07/28/2024 9:13 PM EST Adrian Dyer, VENKATA 6. Suicidal Behavior (Lifetime) No 07/28/2024 9:13 PM EST Adrian Dyer, VENKATA documented as of this encounter Plan of Treatment Upcoming Encounters Date Type Department Care Team (Late st Contact Info) Description 05/13/2025 9:30 AM EST Appointment [facility] 30 [place] [address] Conner Sneed MD [address] [place] [address] [email or web address] 05/14/2025 1:00 PM EST Office Visit [facility] 22 [facility] 3rd Floor, [address] [place] [address] Rehan Landaverde MD 50 [place] [address] 09/13/2025 9:30 AM EDT Office Visit [facility] 10 [place] [address] Conner Sneed MD [address] [place] [address] [email or web address] Scheduled Procedures Name Priority Associated Diagnoses Date/Ti me 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 IN MORTGAGE LOAN PROCESSOR Systolic congestive heart failure, unspecified HF chronicity [...] documented as of this encounter Care Teams Valve Inspector Relationship Specialty Start Date End Date Marlene Harden NP 70 [place] [address] PCP - General Family Medicine 01/10/22 08/07/24 Cj Meyer DO 70 [place] [address] PCP - General Internal Medicine 08/08/24 Dennis Temple MBBS 70 [place] [address] [email or web address] [email or web address] Primary Oncologist Hematology and Oncology 04/02/23 Gabriela Barnhart CNP [address] [place] [address] [email or web address] Nurse Practitioner Medical Oncology 01/16/24 documented as of this encounter Additional Source Comments The information contained in this document represents components of the legal health record. It is not the complete legal health record.[facility]
--- OUTSIDE RECORDS SUMMARY | 2025-04-05 06:32 | XMS_ITS | Encounter Summary ---
Author Organization [facility] Address [address] [place] [address] Phone Care Team Providers Care Rehabilitation Manager Name Role Phone Dereck Marlene Mook UNDERCOATER Primary Care Provider Dennis Temple MBBS Unavailable Gabriela Barnhart FLARE STITCHER Unavailable Cj Meyer DO Primary Care Provider [phone] Encounter Details Date Type Department Care Team (Late st Contact Info) Description 07/18/2024 Procedure Pass [facility], Ct Scan - [address] [address] Social History Tobacco Use Types Packs/Day Years [...] AM EST Appointment [facility] 30 [place] [address] Conner Sneed MD [address] [place] [address] [email or web address] 05/14/2025 1:00 PM EST Office Visit [facility] [address] 3rd Floor, [address] [place] [address] Rehan Landaverde MD [address] [place] [address] 09/13/2025 9:30 AM EDT Office Visit [facility] 10 [place] [address] Conner Sneed MD 10 [facility] 2nd [place] [address] [email or web address] Scheduled Procedures Name Priority Associated Diagnoses Date/Ti me 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 IN SHARPLES MACHINE OPERATOR Systolic congestive heart failure, unspecified [...] documented as of this encounter Care Teams Rehabilitation Manager Relationship Specialty Start Date End Date Marlene Harden NP 70 [place] [address] PCP - General Family Medicine 01/10/22 08/07/24 Cj Meyer DO 70 [place] [address] PCP - General Internal Medicine 08/08/24 Dennis Temple MBBS [address] [place] [address] [email or web address] Primary Oncologist Hematology and Oncology 04/02/23 Gabriela Barnhart CNP [address] [place] [address] [email or web address] Nurse Practitioner Medical Oncology 01/16/24 documented as of this encounter Additional Source Comments The information contained in this document represents components of the legal health record. It is not the complete legal health record.[facility]
--- OUTSIDE RECORDS SUMMARY | 2025-04-05 06:32 | XMS_ITS | Encounter Summary ---
Author Organization [facility] Address [address] [place] [address] Phone Care Team Providers Care Assembly Machine Operator Name Role Phone DereckMarlene Mook SAFETY EQUIPMENT TESTING SPECIALIST Primary Care Provider Dennis Temple MBBS Unavailable Gabriela Barnhart TURBINATED BONE GRINDER Unavailable Cj Meyer DO Primary Care Provider Encounter Details Date Type Department Care Team (Late st Contact Info) Description 07/17/2024 Procedure Pass [facility] [address] [place] [address] Social History Tobacco Use Types Packs/Day Years [...] 07/17/2024 1:48 PM Sofy Harry, VENKATA * [place] Suicide Severity Rating Scale (Screener/Recent Self-Report) Question Answer Date of Assessment Author 1. Wish to be (Past 1 Month) No 025 1:48 PM EST Sofy Poe RN 2. Non-Specific Active Suici meghan Thoughts (Past 1 Month) No 07/17/2024 1:48 PM EST Sofy Poe RN 6. Suicidal Behavior (Lifetime) No 1:48 PM EST Sofy Poe RN documented as of this encounter Plan of Treatment Upcoming Encounters Date Type Department Care Team (Late st Contact Info) Description 05/13/2025 9:30 AM EST Appointment [facility] 30 [place] [address] Conner Sneed MD [address] [address] [email or web address] 05/14/2025 1:00 PM EST Office Visit [facility] 22 [facility] 3rd Floor, [address] [place] [address] Rehan Landaverde MD [address] [place] [address] 09/13/2025 9:30 AM EDT Office Visit [facility] 10 [place] [address] Conner Sneed MD [address] [place] [address] [email or web address] Scheduled Procedures Name Priority Associated Diagnoses Date/Ti nd 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 IN FIRMWARE SOFTWARE VERIFICATION ENGINEER Systolic congestive heart failure, unspecified HF [...] documented as of this encounter Care Teams Assembly Machine Operator Relationship Specialty Start Date End Date Marlene Harden NP 70 [place] [address] PCP - General Family Medicine 01/10/22 08/07/24 Cj Meyer DO 70 [place] [address] PCP - General Internal Medicine 08/08/24 Dennis Temple MBBS 70 [place] [address] [email or web address] [email or web address] Primary Oncologist Hematology and Oncology 04/02/23 Gabriela Barnhart CNP [address] [place] [address] [email or web address] Nurse Practitioner Medical Oncology 01/16/24 documented as of this encounter Additional Source Comments The information contained in this document represents components of the legal health record. It is not the complete legal health record.[facility]
--- OUTSIDE RECORDS SUMMARY | 2025-04-05 06:32 | XMS_ITS | Encounter Summary ---
Author Organization [facility] Address [address] [place] [address] Phone Care Team Providers Care Food Service Tray Attendant Name Role Phone Dereck Marlene Delvalle MEDICAL OFFICE TECHNICIAN Primary Care Provider [phone] Dennis Temple MBBS Unavailable [phone] Gabriela Barnhart GATE CUTTER Unavailable Cj Meyer DO Primary Care Provider [phone] Encounter Details Date Type Department Care Team (Late st Contact Info) Description 07/18/2024 Procedure Pass [facility] Emergency Department, [facility] [address] [place] [address] Social History Tobacco Use Types [...] AM EST Appointment [facility] 30 [place] [address] Conner Sneed MD [address] [place] [address] [email or web address] 05/14/2025 1:00 PM EST Office Visit [facility] [address] 3rd Floor, [address] [place] [address] Rehan Landaverde MD 50 [place] [address] 09/13/2025 9:30 AM EDT Office Visit [facility] 10 [facility] [place] [address] Conner Sneed MD 10 [facility] 2nd [place] [address] [email or web address] Scheduled Procedures Name Priority Associated Diagnoses Date/Ti me 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 IN BATTERY CHARGER TESTER Systolic congestive heart failure, unspecified HF [...] documented as of this encounter Care Teams Food Service Tray Attendant Relationship Specialty Start Date End Date Marlene Harden NP 70 [place] [address] PCP - General Family Medicine 01/10/22 08/07/24 Cj Meyer DO 70 [place] [address] PCP - General Internal Medicine 08/08/24 Dennis Temple MBBS [address] [place] [address] [email or web address] Primary Oncologist Hematology and Oncology 04/02/23 Gabriela Barnhart CNP [address] [place] [address] [email or web address] Nurse Practitioner Medical Oncology 01/16/24 documented as of this encounter Additional Source Comments The information contained in this document represents components of the legal health record. It is not the complete legal health record.[facility]
--- OUTSIDE RECORDS SUMMARY | 2025-04-05 06:32 | XMS_ITS | Encounter Summary ---
Author Organization [facility] Address [address] [place] [address] Phone Care Team Providers Care Milling Supervisor Name Role Phone WindyAlexanderstu Mccann MBBS Unavailable [phone] Pack, Gabriela BURN NURSE Unavailable Cj Meyer DO Primary Care Provider [phone] Encounter Details Date Type Department Care Team (Late st Contact Info) Description 08/08/2024 Procedure Pass [facility], Ct Scan - [facility] 30 [place] [address] Social History Tobacco Use Types Packs/Day Years [...] 3:25 PM Maria E Timmons RN * [place] Suicide Severity Rating Scale (Screener/Recent Self-Report) Question Answer Date of Assessment Author 1. Wish to be (Past 1 Month) No 025 3:25 PM EST Maria E Lin, VEKNATA 2. Non-Specific Active Suici meghan Thoughts (Past 1 Month) No 08/08/2024 3:25 PM EST Galindo Lin, RN 6. Suicidal Behavior (Lifetime) No 3:25 PM EST Maria E Lin, VENKATA documented as of this encounter Plan of Treatment Upcoming Encounters Date Type Department Care Team (Late st Contact Info) Description 05/13/2025 9:30 AM EST Appointment [facility] 30 [place] [address] Conner Sneed MD [address] [place] [address] [email or web address] 05/14/2025 1:00 PM EST Office Visit [facility] [address] [place] [address] 3rd Floor, [address] [place] [address] Rehan Landaverde MD 50 [place] [address] 09/13/2025 9:30 AM EDT Office Visit [facility] 10 [place] [address] Conner Sneed MD [address] [place] [address] [email or web address] Scheduled Procedures Name Priority Associated Diagnoses Date/Ti me 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 IN SPECIAL SERVICES AGENT Systolic congestive heart failure, unspecified HF chronicity [...] documented as of this encounter Care Teams Milling Supervisor Relationship Specialty Start Date End Date Betsy Cj [address] [place] [address] PCP - General Internal Medicine 08/08/24 Dennis Temple MBBS [email or web address] Primary Oncologist Hematology and Oncology 04/02/23 Gabriela Barnhart CNP [address] [place] [address] [email or web address] Nurse Practitioner Medical Oncology 01/16/24 documented as of this encounter Additional Source Comments The information contained in this document represents components of the legal health record. It is not the complete legal health record.[facility]
--- OUTSIDE RECORDS SUMMARY | 2025-04-05 06:33 | XMS_ITS | Encounter Summary ---
Author Organization [facility] Address [address] [facility] [address] [place] [address] Phone Care Team Providers Care Print Project Manager Name Role Phone Olegario Guy MD Primary Care Provider [phone] Marlene Harden NP Primary Care Provider Yue Rodrigez RN Unavailable Jennifer Dash REINFORCED CONCRETE INSPECTOR Unavailable [email or web address] Yvonne Montana Unavailable Dennis Temple MBBS Unavailable [phone] Gabriela Barnhart INSTITUTE DIRECTOR Unavailable Cj Meyer DO Primary Care Provider [phone] Encounter Details Date Type Department Care Team (Late st Contact Info) Description 03/28/2020 Procedure Pass [facility], [address] [address] Social History Tobacco Use Types Packs/Day Years [...] AM EST Appointment [facility] 30 [place] [address] Conner Sneed MD 10 [facility] 2nd [place] [address] [email or web address] 05/14/2025 1:00 PM EST Office Visit [facility] 22 [facility] 3rd Floor, [address] [place] [address] Rehan Landaverde MD [address] [place] [address] 09/13/2025 9:30 AM EDT Office Visit [facility] 10 [place] [address] Conner Sneed MD [address] [place] [address] [email or web address] Scheduled Procedures Name Priority Associated Diagnoses Date/Ti me 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 IN BAND SPLICER Systolic congestive heart failure, unspecified HF chronicity [...] documented as of this encounter Care Teams Print Project Manager Relationship Specialty Start Date End Date Olegario Guy MD [address] [facility] [address] [place] [address] [email or web address] PCP - General Family Medicine 03/28/20 01/09/22 Marlene Harden NP 70 [place], [place] PCP - General Family Medicine 01/10/22 08/07/24 Cj Meyer DO [address] [place] [address] PCP - General Internal Medicine 08/08/24 Yue Rodrigez, RN [address] [place] [address] [facility] Nursing Program Manager 02/21/22 06/09/23 Jennifer Dash LCSW [address] [place] [address] [address] [facility] Social Work 02/01/23 02/11/23 Yvonne Montana [address] [place] [address] [address] [facility] Community Health Worker 02/25/23 06/09/23 Dennis Temple MBBS [address] [place] [address] [email or web address] Primary Oncologist Hematology and Oncology 04/02/23 Gabriela Barnhart, INSTITUTE DIRECTOR [address] [place] [address] [email or web address] Nurse Practitioner Medical Oncology 01/16/24 documented as of this encounter Additional Source Comments The information contained in this document represents components of the legal health record. It is not the complete legal health record.[facility]
--- OUTSIDE RECORDS SUMMARY | 2025-04-05 06:33 | XMS_ITS | Encounter Summary ---
Author Organization [facility] Address [address] [facility] [address] [place] [address] Phone Care Team Providers Care Manufacturing Lab Technician Name Role Phone Marlene Harden NP Primary Care Provider [phone] Yue Rodrigez RN Unavailable Jennifer Dash BREAKER MECHANIC Unavailable [email or web address] Yvonne Montana Unavailable Dennis Temple MBBS Unavailable Gabriela Barnhart MANAGER DISCOVERY Unavailable Cj Meyer DO Primary Care Provider [phone] Reason for Referral * - Closed Specialty Diagnoses / Procedures Referred By Contflorentin t Referred To Contact Diagnoses Permanent atrial fibrillation Procedures MCT (Mobile Cardiac Telemetry) Zack Sanchez DO Phone: tel: fax: mailto: Referral ID Status Reason Start Date Expiration Date Visits Re quested Visits Authorized [id number] Closed 04/11/2022 04/11/2023 1 1 Encounter Details Date Type Department Care Team (Latest Contact Info) Description 04/11/2022 Ancillary Orders [facility] 22 [facility] 3rd Floor, [address] [place] [address] Zack Sanchez DO [address] [address] [email or web address] Permanent atrial fibrillation Social History [...] AM EST Appointment [facility] 30 [place] [address] Conner Sneed MD [address] [place] [address] [email or web address] 05/14/2025 1:00 PM EST Office Visit [facility] [address] [place] [address] 3rd [facility], [address] [place] [address] Rehan Landaverde MD [address] [place] [address] 09/13/2025 9:30 AM EDT Office Visit [facility] 10 [place] [address] Conner Sneed MD [address] [place] [address] [email or web address] Scheduled Orders Name Type Priority Associated Diagnoses Orde r Schedule MCT (Mobile Cardiac Telemetry) Cardiac Monitors Routine Permanent atrial fibrillation Expected: 02/27/2022, Expires: 05/23/2022 Scheduled Procedures Name Priority Associated Diagnoses Date/Ti me 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 IN HUMAN RESOURCES INTERN Systolic congestive heart failure, unspecified HF chronicity [...] documented as of this encounter Care Teams Manufacturing Lab Technician Relationship Specialty Start Date End Date Marlene Harden NP 70 [place] [address] PCP - General Family Medicine 01/10/22 08/07/24 Cj Meyer DO 70 [place] [address] PCP - General Internal Medicine 08/08/24 Yue Rodrigez, VENKATA [address] [place] [address] [facility] Modeling Instructor 02/21/22 06/09/23 Jennifer Dash LCSW [address] [place] [address] [facility] Social Work 02/01/23 02/11/23 Yvonne Montana [address] [place] [address] [facility] Community Health Worker 02/25/23 06/09/23 Dennis Temple MBBS [address] [place] [address] [email or web address] Primary Oncologist Hematology and Oncology 04/02/23 Gabriela Barnhart CNP [address] [place] [address] [email or web address] Nurse Practitioner Medical Oncology 01/16/24 documented as of this encounter Additional Source Comments The information contained in this document represents components of the legal health record. It is not the complete legal health record.[facility]
--- OUTSIDE RECORDS SUMMARY | 2025-04-05 06:33 | XMS_ITS | Data Portability ---
Author Organization [facility], Main Office Address [address] [facility] [address] [place] [address] Care Team Providers Care Lineworker Name Role Phone DENISE GONZALEZ Primary Care Provider MARELY DE LEON 1ST FLOOR OTHER Assessment Encounter Date Assessment Date Assessment LastModified by Organization Details LastModified Time 10/21/2024 10/21/2024 Labs 09/21: Na 138-K 4.6-Bun [...] 9.9, hgb 9.6, hct 30.3, Plt 277. 4: Na 140, K 4.6, Bun 28. Cr 1.21. Wbc 10.1, Hgb 7.8, Hct 24.7, Plt 333 10/26: NA 140, K 4.1, Bun 25, Cr 1.21. Wbc 9.4, Hgb 7.7, Hct 25.1, Plt 416 Not available 10/28/2024 10:31:07 11/04/2024 11/04/2024 Labs 09/21: Na 138-K 4.6-Bun 26-Cr 1.0-wbc 17.4-hgb 11.6-hct 36.3-plt 357 4/3: Na 140, K 4.6, Bun 21, Cr 0.91. Wbc 9.9, hgb 9.6, hct 30.3, Plt 277. 4/14: Na 140, K 4.6, Bun 28. Cr 1.21. Wbc 10.1, Hgb 7.8, Hct 24.7, Plt 333 4: NA 140, K 4.1, Bun 25, Cr 1.21. Wbc 9.4, Hgb 7.7, Hct 25.1, Plt 416 11/02: Na 143, K 4.7, Bun 24, Cr 1.29. Wbc 8.5, Hgb 8.1, Hct 26.8, Plt 383 Chest Xray- no acute cardiopulmonary disease. Not available 11/04/2024 10:04:35 01/21/2025 01/21/2025 Spent 45 reviewing records, seeing pt, consulting with staff and documenting on this very complicated pt with life threatening medical problems [place] Not available 01/23/2025 15:31:07 Plan of Treatment Reminders Order Date Submit [...] Time Nontraumati c intraparenc hymal cerebral hemorrhage 3036360710312 03 Active 2024 Esa Rodrigues MD [address] [facility], [address], [place], [address], [facility] 5 11:08:30 Chronic obstructive pulmonary disease 32161720 Active 2024 Esa Rodrigues MD [address] [facility] [address], [address], [place], [address], [facility] 5 11:08:49 Dysphagia 48151490 Active 2024 Esa Rodrigues MD [address], [address], [place], [address], [facility] 5 11:09:20 Atrial fibrillatio n 83929402 Active 2024 Esa Rodrigues MD [address], [address], [place], [address], [facility] 5 11:11:53 Coronary arterioscle rosis 12955482 Active 2024 Esa Rodrigues MD [address], [address], [place], [address], [facility] 5 11:11:58 Alcohol dependence 13749481 Active 2024 Esa Rodrigues MD [address], [address], [place], [address], [facility] 5 11:12:38 Tobacco user 506080043 Active 2024 Esa Rodrigues MD [address], [address], [place], [address], [facility] 5 11:12:43 Essential hypertensio n 70179700 Active 2024 Esa Rodrigues MD [address], [address], [place], [address], [facility] 5 11:12:48 Mixed hyperlipide micalea 977537923 Active 2024 Esa Rodrigues MD [address], [address], [place], [address], [facility] 5 11:12:56 Congestive heart failure 48267485 Active 2024 Esa Rodrigues MD [address], [address], [place], [address], [facility] 5 11:13:02 Chronic kidney disease stage 2 706980313 Active 2024 Letty Mehta MD [address], [address], [place], [address], [facility] 5 15:24:10 Pain of knee region 3326277205 Active 2024 Letty Mehta MD [address] [place] [address], [address], [place], [address], [facility] 5 15:30:14 Problem Notes None recorded. Medical Equipment None Reported. Allergies Allergen ID Allergen Name Allergen Category Reaction Reaction Severity Criticality Documentation Date Start Date Code Code System Note Provider Name and Address Organization Details Recorded Time 26661 Product containin g penicilli n (product) medicatio n Not available Not available Not available 08/14/2024 43571 8001 SNOMED Esa Rodrigues MD [address] [place] [address], [address], [place], [address], [facility] 5 11:22:28 50861 shellfish derived food,medi cation Not available Not available Not available 08/14/2024 Esa Rodrigues MD [address] [place] [address], [address], [place], [address], [facility] 5 11:22:49 86809 prednison e medicatio n Not available Not available Not available 01/21/20252019 8640 RxNorm Letty Mehta MD [address] [place] [address], [address], [place], [address], [facility] 5 16:10:02 43111 scallop allergeni c extract food Not available Not available Not available 01/21/20252013 90469 6 RxNorm Other react ion(s ): short ness of shemar Mehta MD [address] [place] [address], [address], [place], [address], [facility] 5 16:10:04 10750 penicilla mine medicatio n Not available Not available Not available 01/21/20252013 7975 RxNorm Other react ion(s ): short ness of shemar Mehta MD [address] [place] [address], [address], [place], [address], [facility] 5 16:19:26 Vitals Date Recorded Body weight Heart rate Respiratory rate Body temperature Oxygen saturation Oxygen saturation in Arterial blood by Pulse oximetry Inhaled oxygen flow rate Systolic And Diastolic Provider Name and Address Organization Details Last Updated DateTime 5 33635.1 9 g 70 /min 18 /min 98.1 [degF] 96 % 96 % 2 L/min 143/74 mm[Hg] KIAN RODRIGUEZ CNP [address] [facility], [address], [place], [address], [facility] 5 09:55:08 Date Recorded Body weight Heart rate Respiratory rate Body temperature Oxygen saturation Oxygen saturation in Arterial blood by Pulse oximetry Inhaled oxygen flow rate Systolic And Diastolic Provider Name and Address Organization Details Last Updated DateTime 5 56464.7 g 58 /min 18 /min 98.1 [degF] 94 % 94 % 2 L/min 110/63 mm[Hg] KIAN RODRIGUEZ CNP [address], [place], [address], [facility] 5 09:37:59 Date Recorded Systolic And Diastolic Provider Name and Address Organization Details Last Updated DateTime 11/09/2024 135/64 mm[Hg] Esa Rodrigues [facility] [address], [place], [address], [facility] 11/09/2024 11:23:22 Date Recorded Heart rate Systolic And Diastolic Provider Name and Address Organization Details Last Updated DateTime 11/11/2024 87 /min 116/67 mm[Hg] KIAN RODRIGUEZ CNP [address], [place], [address], [facility] 11/11/2024 10:11:22 Date Recorded Body height Body mass index (BMI) Body weight Heart rate Respiratory rate Body temperature Oxygen saturation Oxygen saturation in Arterial blood by Pulse oximetry Inhaled oxygen flow rate Systolic And Diastolic Provider Name and Address Organization Details Last Updated DateTime 5 170.18 cm 33.4 kg/m2 68030.1 7 g 55 /min 18 /min 97.8 [degF] 98 % 98 % 2 L/min 139/77 mm[Hg] Letty Mehta MD [address] [facility], [address], [place], [address], [facility] 16:25:48 Social History Question Answer Notes LastModified by Organizat ion Details LastModified Time Tobacco Smoking Status Former Smoker Quit when admitted to rehab 08/2024 Letyt Mehta MD [address] [facility], [address], [place], [place], [address], [facility] 01/21/2025 18:12:08 Do You Have An Advance Directive? Yes Information not available 01/21/2025 What Is Your Code Status? Full Code Information not available 08/14/2024 Which Illicit Or Recreational Drugs Have You Used? Occ Cannabis Information not available 01/21/2025 Where Do You Live? Other Had To Give Up Apt Due To Hospitalizat ons/rehab, Looking Into ALFs Information not available 01/21/2025 Legal Guardian? No Informati on not available 01/21/2025 Do You Have A Medical Power Of Lead Housekeeper? Yes Not Invoked Information not available 01/21/2025 What Was The Date Of Your Most Recent Tobacco Screening? 01/21/2025 Information not available 01/21/2025 Do You Have An Out Of Hospital DNR? No Information not available 01/21/2025 What Is Your Relationship Status? Single Has F[place]/comm on Law Information not available 01/23/2025 How Much Tobacco Do You Smoke? No Information not available 01/21/2025 Has Tobacco Cessation Counseling Been Provided? No N/A As Pt No Longer Smokes Information not available 01/21/2025 Have You Used IV Drugs? No Information not available 01/21/2025 Sex: Unknown Functional Status Question Answer Note LastModified by Organizat ion Details LastModified Time Do you use any illicit or recreational drugs? Yes Information not available 01/21/2025 Do you or have you ever used any other forms of tobacco or nicotine? No Information not available 01/21/2025 What is your level of alcohol consumption? None heavy until 02/2024 Information not available 01/21/2025 Mental Status None recorded. Family History Nothing Reported Notes:pt adopted Medical History No medical history recorded. Immunizations Vaccine Type Date Status Note Provider Nam e and Address Organization Details Recorded Time Tdap 09/28/2016 completed Pattie Robbi [facility] 08/14/2024 16:05:11 SARS-COV-2 (COVID-19) vaccine, UNSPECIFIED 11/29/2020 completed Pattie Robbi [facility] 08/14/2024 16:05:29 Past Encounters Encounter ID Performer Location Encounter Start Date Encounter Closed Date Diagnosis/Indication Diagnosis SNOMED-CT Code Diagnosis ICD10 Code Diagnosis IMO Codes Diagnosis Note [id number] [place] [address] [address] 08/14/2024 10:59:15 08/17/2024 16:18:46 Nontraumatic intraparenchymal cerebral hemorrhage 3522028112 01998 I61.8 see HPIrecentl y discharged from hospital [...] on 08/26 Chronic ob structive pulmonary disease 72459214 J44.1 restart qid duonebsmon itor respirator y statuscomp lete prednisone coursecoor dinate with respirator y at facilitypu lmonary eval prn Respirator y syncytial virus infection 54005361 B97.4 see above Asthenia 92406278 R53.1 PT OT eval and treatmonit or fall risk and need for increased support in community Dysphagia 60201022 I69.2 91 monitor aspiration risk and need to further adjust diet Atrial fibrillation 1565 2878 I48.0 Xarelto on hold due to aboveamiod arone 200 mg qdasa 81 mg qd through 08/26metopr olol 50 mg qdmonitor for rate control Coronary arteriosclerosis 03215148 I25.10 lipitor 40 mg qdmetoprol ol 50 mg qdmonitor for sx Alcohol dependence 02501 003 F10.20 added to PMHcontinu e thiaminemo nitor need for increased support in community Tobacco user 127325980 Z 72.0 added to PMHencoura ge quittingco ntinue nicotine supplement Essential hypertension 57580326 I10 metoprolol 50 mg qdlasix 40 mg qdlisinopr il 10 mg qdentresto 24-26 mg bidmonitor bp and need titrate Mixed hyperlipidemia 267 218272 E78.2 lipitor 40 mg qdcontinue d Congestive heart failure 20710658 I50.22 EF=35%lasi x 40 mg qdentresto 24-26 mg bidmonitor respirator y and fluid status [id number] URIEL DELAROSA [address] [place] [address] 08/19/2024 13:34:52 08/20/2024 13:07:58 Nontraumatic intraparenchymal cerebral hemorrhage 2775570830 25393 I61.8 continue ASA 08/05 through 08/26 with f/u neuro in place.Cont inued on dysphagia diet and continued on keppra 750 mg bid with plan to reassess ability to restart xarelto on 08/26neuros intact Chronic ob structive pulmonary disease 71549921 J44.1 continue duonebs QIDmonitor respirator y statuspulm nurse to followlung sounds still coarse Respirator y syncytial virus infection 41770339 B97.4 improving slowly [id number] URIEL DELAROSA [address] [place] [address] 08/24/2024 09:32:25 08/25/2024 12:01:07 Nontraumatic intraparenchymal cerebral hemorrhage 9211573500 53311 I61.8 continue ASA 08/05 through 08/26 with f/u neuro in place.Cont inued on dysphagia diet and continued on keppra 750 mg bid with plan to reassess ability to restart xarelto on 08/26 Chronic ob structive pulmonary disease 26941344 J44.1 continue duonebs QID Respirator y syncytial virus infection 51654965 B97.4 resolved Asthenia 73643681 R53.1 baselineVN A Outpt Atrial fibrillation 4943 6004 I48.0 Xarelto on hold due to aboveamiod arone 200 mg qdasa 81 mg qd through 08/26 then restart xareltomet oprolol 50 mg qd Coronary arteriosclerosis 12174878 I25.10 lipitor 40 mg qdmetoprol ol 50 mg qd Alcohol dependence 93512 003 F10.20 continue thiamine Tobacco user 275235329 Z 72.0 added to PMHencoura ge quittingco ntinue nicotine supplement Essential hypertension 44969082 I10 metoprolol 50 mg qdlasix 40 mg qdlisinopr il 10 mg qdentresto 24-26 mg bid Mixed hyperlipidemia 267 373794 E78.2 lipitor 40 mg qd Congestive heart failure 18853069 I50.22 EF=35%lasi x 40 mg qdentresto 24-26 mg bid [id number] Esa Rodrigues MD [facility] [address] [place] [address] [place] [address] 09/02/2024 09:13:06 09/07/2024 15:57:48 Nontraumatic intraparenchymal cerebral hemorrhage 2937054128 63562 I61.8 see HPIrecentl y discharged from hospital for right Intraparen chymal hemorrhage with mild left hemiparesi s and dysarthria on dischargem aintained onxarelto 20 mg qdkeppra 1500 mg bidcoordin ate with neuro as needed Chronic ob structive pulmonary disease 43894437 J44.1 monitor neb utilizatio n and respirator y statusnow onpredniso ne 60 mg qdwill decrease by 10 mg q 5 days till at 10 mg then reassesspu lmonary eval prn Asthenia 34164442 R53.1 PT OT eval and treatmonit or fall risk and need for increased support in community Dysphagia 94998532 I69.2 91 monitor aspiration risk and need to further adjust diet Atrial fibrillation 4943 6004 I48.0 Xarelto 20 mg qdamiodaro ne 200 mg qdmetoprol ol 50 mg qdmonitor for rate control Coronary arteriosclerosis 63450955 I25.10 lipitor 40 mg qdmetoprol ol 50 mg qdmonitor for sx Alcohol dependence 18589 003 F10.20 added to PMHcontinu e thiaminemo nitor need for increased support in community Tobacco user 164738826 Z 72.0 added to PMHenc[place] ge quittingco ntinue nicotine supplement Essential hypertension 76812957 I10 metoprolol 50 mg qdnorvasc 5 mg qdlasix 40 mg qdentresto 24-26 mg bidmonitor bp and need titrate Mixed hyperlipidemia 267 778398 E78.2 lipitor 40 mg qdcontinue d Congestive heart failure 75595605 I50.22 EF=35%lasi x 40 mg qdentresto 24-26 mg bidmonitor respirator y and fluid status [id number] [place] SQUIRES [address] [address] 10/04/2024 10:50:42 10/27/2024 08:10:53 Chronic obstructive pulmonary disease 41099679 J44.1 stable O2 dependentm onitor respirator y statusCont prednisone 5mg qdpulmonar y eval prn Nontraumat ic intraparenchymal cerebral hemorrhage 8440727203 01518 I61.8 stablerece ntly discharged from hospital for right Intraparen chymal hemorrhage with mild left hemiparesi s and dysarthria on dischargem aintained onxarelto 20 mg qdkeppra 1500 mg bidcoordin ate with neuro as needed Atrial fibrillation 4943 6004 I48.0 HR controlled Xarelto 20 mg qdamiodaro ne 200 mg qdmetoprol ol 50 mg qdmonitor for rate control Coronary arteriosclerosis 16272864 I25.10 stablelipi tor 40 mg qdmetoprol ol 50 mg qdmonitor for sx Essential hypertension 12816918 I10 stablemeto prolol 50 mg qdnorvasc 5 mg qdlasix 40 mg qdentresto 24-26 mg bidmonitor bp and need titrate Congestive heart failure 36193093 I50.22 stable euvolemicE F=35%lasix 40 mg qdentresto 24-26 mg bidmonitor respirator y and fluid status [id number] KIAN RODRIGUEZ CNP [address] [address] 10/07/2024 08:46:35 10/09/2024 08:38:44 Chronic obstructive pulmonary disease 70648272 J44.1 now on prednisone 10 mg daily. Will taper down to 5 mg daily and will reassess.C ontinue neb QID.Contin ue monitor respirator y status.pul monary eval prn.Will check lab, CBC, CMP tomorrow. Nontraumat ic intraparenchymal cerebral hemorrhage 6332819542 89766 I61.8 see HPIrecentl y discharged from hospital for right Intraparen chymal hemorrhage with mild left hemiparesi s and dysarthria on discharge. Stable now.mainta ined onxarelto 20 mg qdkeppra 750 mg bidcoordin ate with neuro as needed Asthenia 00760317 R53.1 Improving. Continue PT OT, PRN eval and treatmonit or fall risk and need for increased support in community Dysphagia 41171132 I69.2 91 Resolved.I s currently is on regular diet, no coughing or chocking reported. Atrial fibrillation 4943 6004 I48.0 HR stable.Xar elto 20 mg qdamiodaro ne 200 mg qdmetoprol ol 50 mg qdmonitor for rate control Coronary arteriosclerosis 29997826 I25.10 lipitor 40 mg qdmetoprol ol 50 mg qdmonitor for sx Alcohol dependence 90268 003 F10.20 added to PMHcontinu e thiaminemo nitor need for increased support in community Tobacco user 354044570 Z 72.0 added to PMH[place] ge quittingco ntinue nicotine supplement Essential hypertension 98319514 I10 metoprolol 50 mg qdnorvasc 5 mg qdlasix 40 mg qdentresto 24-26 mg bidmonitor bp and need titrate Mixed hyperlipidemia 267 200520 E78.2 lipitor 40 mg qdcontinue d Congestive heart failure 87320623 I50.22 EF=35%Pt is euvolemic, but gained 14 lb over a month.? volume overload or due to high dose of prednisone .continuel asix 40 mg qdentresto 24-26 mg bidmonitor respirator y and fluid statuswill monitor wt weekly.Sabas thibodeaux check labs tomorrow. [id number] KIAN RODRIGUEZ CNP [facility] [address] [place] [address] [place] [address] 10/14/2024 09:50:34 10/21/2024 11:35:43 Chronic obstructive pulmonary disease 18682935 J44.1 now on prednisone 5 mg daily, Will taper down to 2.5 mg daily and will reassess.w bc trending down.Keiry nue neb.Contin ue monitor respirator y status.pul monary eval prn.Will check lab weekly. Nontraumat ic intraparenchymal cerebral hemorrhage 7682289484 72154 I61.8 see HPIrecentl y discharged from hospital for right Intraparen chymal hemorrhage with mild left hemiparesi s and dysarthria on discharge. Stable now.mainta ined onxarelto 20 mg qdkeppra 750 mg bidcoordin ate with neuro as needed Asthenia 46545304 R53.1 Improving. Continue PT OT, PRN eval and treatmonit or fall risk and need for increased support in community Dysphagia 16421309 I69.2 91 Resolved.I s currently is on regular diet, no coughing or chocking reported. Atrial fibrillation 4943 6004 I48.0 HR stable.Xar elto 20 mg qdamiodaro ne 200 mg qdmetoprol ol 50 mg qdmonitor for rate control Coronary arteriosclerosis 43810569 I25.10 lipitor 40 mg qdmetoprol ol 50 mg qdmonitor for sx Alcohol dependence 03908 003 F10.20 added to PMHcontinu e thiaminemo nitor need for increased support in community Tobacco user 630033815 Z 72.0 added to PMHenc[place] ge quittingco ntinue nicotine supplement Essential hypertension 53788170 I10 BP stable.met oprolol 50 mg qdnorvasc 5 mg qdlasix 40 mg qdentresto 24-26 mg bidmonitor bp and need titrate Mixed hyperlipidemia 267 548080 E78.2 lipitor 40 mg qdcontinue d Congestive heart failure 07592119 I50.22 EF=35%Pt is euvolemic, but gained 14 lb over a month.? volume overload or due to high dose of prednisone .continuel asix 40 mg qdentresto 24-26 mg bidmonitor respirator y and fluid statuswill monitor wt weekly.Sabas l check labs tomorrow. [id number] KIAN RODRIGUEZ, MEDARDO YAP HALEY [address] [facility] [address] 10/21/2024 09:10:50 10/27/2024 08:23:45 Chronic obstructive pulmonary disease 60229555 J44.1 Stable, no exacerbati on noted.Pred nisone tapered down to 2.5 mg now, and will tapered to 1 mg daily for 5 days and then stop.wbc trending down.will change neb treatment as PRN.Contin ue monitor respirator y status.pul monary eval prn.Will check lab weekly. Nontraumat ic intraparenchymal cerebral hemorrhage 9061646586 10284 I61.8 see HPIrecentl y discharged from hospital for right Intraparen chymal hemorrhage with mild left hemiparesi s and dysarthria on discharge. Stable now.mainta ined onxarelto 20 mg qdkeppra 750 mg bidcoordin ate with neuro as needed Asthenia 71572237 R53.1 Improving. Continue PT OT, PRN eval and treatmonit or fall risk and need for increased support in community Dysphagia 05365607 I69.2 91 Resolved.I s currently is on regular diet, no coughing or chocking reported. Atrial fibrillation 4943 6004 I48.0 HR stable.Xar elto 20 mg qdamiodaro ne 200 mg qdmetoprol ol 50 mg qdmonitor for rate control Coronary arteriosclerosis 34632823 I25.10 lipitor 40 mg qdmetoprol ol 50 mg qdmonitor for sx Alcohol dependence 46821 003 F10.20 added to PMHcontinu e thiaminemo nitor need for increased support in community Tobacco user 844146167 Z 72.0 added to PMHenc[place]ra ge quittingco ntinue nicotine supplement Essential hypertension 84417667 I10 BP stable.met oprolol 50 mg qdnorvasc 5 mg qdlasix 40 mg qdentresto 24-26 mg bidmonitor bp and need titrate Mixed hyperlipidemia 267 957044 E78.2 lipitor 40 mg qdcontinue d Congestive heart failure 69346961 I50.22 EF=35%Pt is euvolemic, but gained 14 lb over a month.? volume overload or due to high dose of prednisone .continuel asix 40 mg qdentresto 24-26 mg bidmonitor respirator y and fluid statuswill monitor wt weekly.Sabas l check labs tomorrow. [id number] KIAN RODRIGUEZ, MEDARDO [address] [place] [address] 10/28/2024 09:19:53 11/03/2024 11:20:44 Chronic obstructive pulmonary disease 27438892 J44.1 Stable, no exacerbati on noted.Pred nisone tapered down and completed yesterday. wbc trending down.He has been using neb treatment as PRN.Contin ue monitor respirator y status.ref er to pulmonary for evalWill check lab weekly. Nontraumat ic intraparenchymal cerebral hemorrhage 0244135806 68994 I61.8 see HPIrecentl y discharged from hospital for right Intraparen chymal hemorrhage with mild left hemiparesi s and dysarthria on discharge. Stable now.mainta ined onxarelto 20 mg qdkeppra 750 mg bidcoordin ate with neuro as needed Asthenia 93390625 R53.1 Improving. Continue PT OT, PRN eval and treatmonit or fall risk and need for increased support in community Atrial fibrillation 4943 6004 I48.0 HR stable.Xar elto 20 mg qdamiodaro ne 200 mg qdmetoprol ol 50 mg qdmonitor for rate control Coronary arteriosclerosis 26363291 I25.10 lipitor 40 mg qdmetoprol ol 50 mg qdmonitor for sx Alcohol dependence 24159 003 F10.20 added to PMHcontinu e thiaminemo nitor need for increased support in community Tobacco user 418102864 Z 72.0 added to PMHencoura ge quittingco ntinue nicotine supplement Essential hypertension 78265692 I10 BP stable.met oprolol 50 mg qdnorvasc 5 mg qdlasix 40 mg qdentresto 24-26 mg bidmonitor bp and need titrate Mixed hyperlipidemia 267 468925 E78.2 lipitor 40 mg qdcontinue d Congestive heart failure 79873181 I50.22 EF=35%Pt is euvolemic, but gained 14 lb over a month.? volume overload or due to high dose of prednisone .continuel asix 40 mg qdentresto 24-26 mg bidmonitor respirator y and fluid statuswill monitor wt weekly.Sabas carlos eduardo check labs tomorrow. [id number] KIAN RODRIGUEZ, MEDARDO DE LEON [address] [facility] [address] 11/04/2024 09:35:19 11/06/2024 14:11:01 Chronic obstructive pulmonary disease 54584934 J44.1 Stable, no exacerbati on noted.Pred nisone tapered down and completed last week.wbc trending down.He has been using neb treatment as PRN.Contin ue monitor respirator y status.pul monary evaluation scheduled. Will check lab weekly. Nontraumat ic intraparenchymal cerebral hemorrhage 3932709168 13731 I61.8 see HPIrecentl y discharged from hospital for right Intraparen chymal hemorrhage with mild left hemiparesi s and dysarthria on discharge. Stable now.mainta ined onxarelto 20 mg qdkeppra 750 mg bidcoordin ate with neuro as needed Asthenia 47579684 R53.1 Improving. Continue PT OT, PRN eval and treatmonit or fall risk and need for increased support in community Atrial fibrillation 4943 6004 I48.0 HR stable.Xar elto 20 mg qdamiodaro ne 200 mg qdmetoprol ol 50 mg qdmonitor for rate control Coronary arteriosclerosis 37222027 I25.10 lipitor 40 mg qdmetoprol ol 50 mg qdmonitor for sx Alcohol dependence 93737 003 F10.20 added to PMHcontinu e thiaminemo nitor need for increased support in community Tobacco user 356295667 Z 72.0 added to PMHenc[place]ra ge quittingco ntinue nicotine supplement Essential hypertension 35956101 I10 BP stable.met oprolol 50 mg qdnorvasc 5 mg qdlasix 40 mg qdentresto 24-26 mg bidmonitor bp and need titrate Mixed hyperlipidemia 267 633621 E78.2 lipitor 40 mg qdcontinue d Congestive heart failure 09099603 I50.22 EF=35%Pt is euvolemic, but gained 14 lb over a month.? volume overload or due to high dose of prednisone .continuel asix 40 mg qdentresto 24-26 mg bidmonitor respirator y and fluid statuswill monitor wt weekly.car diology f/u scheduled today. [id number] MD MARELY Vides HALEY [address] [place] [address] rd CHELO HERNANDEZ [address] 11/09/2024 11:22:44 11/11/2024 14:10:04 Acute kidney injury 86475910 N17.8 08284 see HPI question due to diuresisno w metolazone has been discontinu eddischarg ed on torsemide 20 mg with frequency to be confirmed with hospital - monitor need to increase to BIDwill change to q day and monitor weightsdis cussed with nursing Normocytic anemia 832504 002 D64.9 38723 acute on chronic anemianow on iron 325 mg m/w/fto f/u with GI out patient with no bleeding source foundhx need for iron infusionmo nitor cbcheme eval prnof note remains on xarelto Congestive heart failure 02961513 I50.22 now ontorsemid e 20 mg qdentresto 24-26 mg bidmonitor respirator y and fluid statusupda te cards with concerns Chronic ob structive pulmonary disease 54620405 J44.1 recent need for prednisone utilizatio nmonitor respirator y statuspulm onary eval prn Nontraumat ic intraparenchymal cerebral hemorrhage 6554467090 32089 I61.8 prior right Intraparen chymal hemorrhage with mild left hemiparesi s and dysarthria on dischargem aintained onxarelto 20 mg qdkeppra 750 mg bidcoordin ate with neuro as needed Asthenia 99228285 R53.1 PT OT eval and treatmonit or fall risk and need for increased support in community Dysphagia 37803107 I69.2 91 monitor aspiration risk and need to further adjust diet Atrial fibrillation 4943 6004 I48.0 Xarelto 20 mg qdamiodaro ne 200 mg qdmetoprol ol 12.5 mg qdmonitor for rate control Coronary arteriosclerosis 47832442 I25.10 lipitor 40 mg qdmetoprol ol 12.5 mg qdmonitor for sx Essential hypertension 02334225 I10 see HPI with changes now onmetoprol ol 12.5 mg qdtorsemid e 20 mg qd - pending confirmati on from [facility] tresto 24-26 mg bidmonitor bp and need titrate Mixed hyperlipidemia 267 222065 E78.2 lipitor 40 mg qdcontinue d [id number] MD MARELY Smith [address] [place] [address] rd CHELO HERNANDEZ [address] 01/21/2025 16:09:29 01/26/2025 10:38:08 Congestive heart failure 36834161 I50.22 Resp sxs and edema at baseline per pt.Continu e torsemide 20 mg qd, metoprolol 12.5 mg qd, and entresto 24/26 mg BID.Monito r resp. status, fluid status, wts and labs.F/U with cardio as planned and prn. Chronic ob structive pulmonary disease 69091324 J44.1 With some exp wheezing today, pt says baseline.C ontinue Trelegy 200/62.5/2 5 mcg qd, roflumilas t 500 mcg qd, albuterol MDI 2 puffs q 6 hrs prn, and duonebs q 6 hrs prn.Monito r resp status.F/U with pulmonary in 03/2025 as planned. Nontraumat ic intraparenchymal cerebral hemorrhage [id number] 46178 I61.8 In hx.On seizure prophylaxi s with keppra 750 mg BID.Monito r for new neuro changes and seizure activity. Asthenia 42067048 R53.1 Is back to baseline.R estart PT/OT prn Atrial fibrillation 4943 6004 I48.0 Rate in good control on meds as above and amiodarone 200 mg qd.Continu e Xarelto 20 mg qd for AC.Monitor HR and bleeding risk.Will be able to d/c Xarelto after Watchman procedure. Coronary arteriosclerosis 23031345 I25.10 No recent chest pain.Keiry nue meds as above and atorvastat in 40 mg qdNo plans for revascular ization.Mo nitor for sxs.F/U with cardio. Essential hypertension 48445780 I10 Adequate control on meds as above.Lexie tor BP and labs. Chronic ki dney disease stage 2 209463324 N18.2 32543513 Renal function stable.Bal ancing act between CHF and CKD.Titrat e diuretics as needed.Mon itor labs. Pain of knee region 1003 739274 M25.561 M25.562 G89.29 46459049 Pt says that knee pain interferes in functionin g more than resp sxs.He has had steroid injections with in house physiatris t with very short term relief. Physiatris t has suggested gel shots as outpt.Cont inue APAP 650 mg q 6 hrs prn and Percocet 325/5 mg q 6 hrs prn.Consul t PSSP for ? Effluxa shots.Forg ot to discuss lidocaine patches. Anemia 932129589 D64.89 59944609 Stable.No cause found.Cont inue FeSO4 324 mg qd on // with ascorbic acid 500 mg for absorption .Monitor labs. Health Concerns Section Related Observation LastModified by Organization Detai ls LastModified Time None Recorded Concern Status LastModified by Organization Details LastModified Time None Recorded Advance Directives Directive Y: Payers Insurance Date Sequence Insurance Name Policy Number Policy Rogers Covered Member ID Rogers Member ID Guarantor Name 01/21/2025 2 [place] [facility] Dwaine Orellana [id number] Dwaine Orellana 01/21/2025 1 [place] B[place] [email or web address] Dwaine Orellana [id number] Dwaine Orellana Notes Date Note Type Note Provider Name and Address Organization Details Recorded Time 5 text/html ROS as noted in the HPI This is a 59 year old male seen today for acute rounding [...] htn, hld, chf EF=35%, copd. KIAN RODRIGUEZ, MANAGER DEVELOPMENTAL [address], [address], [place], [address], [facility] - [employer] 10/21/2024 10:05:50 5 text/html ROS as noted in the HPI This is a 59 year old male seen today for acute rounding [...] htn, hld, chf EF=35%, copd. KIAN RODRIGUEZ, MANAGER DEVELOPMENTAL [address], [address], [place], [address], [facility] [employer] 10/28/2024 10:41:17 5 text/html ROS as noted in the HPI This is a 59 year old male seen today for acute rounding [...] chf EF=35%, copd. KIAN RODRIGUEZ CNP [address], [address], [place], [address], [facility] [employer] 11/04/2024 10:05:56 5 text/html Patient is a 59 yo male [...] maintained on xarelto Esa Rodrigues MD [address], [address], [place], [address], [employer] 11/09/2024 11:52:00 5 text/html This is a complicated 59 yo man with COPD on home O2, who I am seeing today for a delayed 90 day routine visit and in anticipation of transition to new medical team.He has been here since 09/01/24 with one rehospitalization from 11/04-11/07. [facility] with hx of seizure activity and resp distress requiring intubation. It is unclear whether this was a true seizure vs encephalopathy secondary to hypercarbic respiratory failure .He wasd/c homewith BiPAP ordered. [facility] with left sided weakness and being found to have 3.4 x 1.8 cm acute intraparenchymal hemorrhage involving the right lentiform nucleus with mild adjacent mass effect At [facility] brain with and without contrast did not reveal underlying aneurysm or AVM. Neurology cleared patient and patient was downgraded from neurocritical care to acute. Bleed attributed to either hypertension and or his anticoagulation. Plan per neurology recommendations is to start aspirin on post bleed day 7, then discontinue the aspirin and switch back to his rivaroxaban on post bleed day 30. PMR evaluated patient recommending home with services, with scripts provided for PT and OT and walker. Patient was also evaluated by pulm rehab nurse who recommend continue patient on 2 L at rest 4 L activity, and lengthen patient with [employer] who is already set up with for delivery of a second home concentrator and will be reaching out to the patient regarding equipment for his home BiPAP which is currently out of use. He wasd/c home with VNA 08/04 to [facility] EDfor bradycardia.D/C home for outpt f/u. [facility] ED on 08/08 with worsening left sided weakness. Found to have Right lentiform nucleus evolving parenchymal hematoma with slightly decreased hyperdense components, and slightly increased surrounding edema. Leftward midline shift by 3 to 4 mm, slightly worse. Course complicated by +RSV.D/C to [facility], where he did well and wasd/c home on 08/25. [facility]. He was txed with steroids and duonebs. Needed increased O2, then tapered back to baseline 2L and transferred here. He went out for acardio appt on 11/04and they found: Patient has not had any improvement in [...] however, shared decision to send patient to [facility] ED for evaluation/treatment to monitor closely due to above-stated signs/symptoms and hypotension. Transferred to [facility] ED. Per d/c summary:Hypotension-Prese nted hypotensive from cardiology appt w/ JOSE-Seemed to be very dry with JOSE, over diuresed, he was previously on a extended course of prednisone, morning cortisol was wnl, no evidence for adrenal insufficiency. Uncertain if the prednisone may have contributed to his weight gain. During the hospital stay his metoprolol and Entresto were held as well as the amlodipine. According to the patient and family the plan was to discontinue the amlodipine anyway which we will do. Will decrease the metoprolol to 12.5 mg a day and keep the Entresto dosing where it was. Further titrations might be necessary if he has significant hypotension or symptoms of.JOSE(acute kidney injury)-likely prerenal in nature given the hypotension and increased diuretics.This responded nicely to volume repletion and discontinuation of diuretics. On the third his BUN was 22, creatinine 1.2 with a GFR of 69. See cardiology recommendations below. He should have a BMP weekly for the next couple of weeks to ensure stability on the current regimen.Anemia- fatigue increased dyspnea with exertion that was of insidious onset over several weeks in late September until now. This is complex as he has chronic hypoxic respiratory failure secondary to COPD, potentially CHF and anemia all contributing to this symptom.-labs from long-term 11 down to 7s, now in 8s, may be some hemoconcentration but steady overnight, no active bleeding noted.- noted 1 previous episode of unexplained severe anemia down to a hemoglobin of 5 in February 2023 after extensive evaluation with endoscopies and VCE no source was found anemia. During this stay his iron levels were low. At one point he was following with the [facility] at [facility] for iron infusions. He was given Feraheme 510 mg on 11/07. His oral iron supplementation will be restarted as iron sulfate 325 mg 1 oral Saturday and Saturday with vitamin C to help absorption.. He will need to follow-up with GI as an outpatient. He probably will need further IV infusions with the hematology center.For now we will continue, xarelto cautiously, and follow serial CBCs. If he continues to have low iron with no obvious GI source grossly, he may be a candidate for a Watchman procedure and cardiology is considering that possibility at this time.Heart failure with reduced ejection fraction-last stable in Aug on lasix 40 mg qd entresto 24-26 mg bidMost recent echo July showed recovered EF 65 to 70% general good cardiac function-gaining wt at long-term and seemed to be overdiuresed in recent days in attempt to improve his symptoms. Again it is uncertain if all of the weight gain was truly fluid, or if he has gained some weight from a combination of less activity than he is used to and dietary intake. His TSH was unremarkable. An ultrasound done in the ED did not show any ascites. A CT scan of the abdomen was done to make sure there was no evidence for fluid collection or other gross pathology given his complaint of most of this weight being carried in his abdomen and some mild distention. This showed no acute findings, and specifically no findings of ascites.His case was discussed with cardiology on the third. It has been recommended that he be discharged on a beta-emre(metoprolol xl decreased from 25 to 12.5 mg), Entresto(his dose has been increased from one 24/26 mg tab daily to bid), and only torsemide at 20 mg a day watching his weight, BP and BMP closely to determine appropriate diuretic needs. He should be on a no added salt diet. He will be set up in the office for consideration of a Cardiomems to help direct his therapy in the future. He has an appointment 11/18, it would be ideal if a BMP was drawn a day or two before for evaluation.It should be noted that his weight gain is difficult to interpret. Most of these have been done on different scales. By exam he does not appear to be fluid overloaded, some of this may be weight gain as above. Looking back at weights as far as a year ago they go as follows with the only outlier being one discharge weight in August( at 161 which may be erroneous given the other readings). 10/21/23 187lb, 06/16/24 187lb, 07/18/24 193, 07/25/24 188lb, 09/01/24 161 lb, 10/15 24 208, 11/04/24 203 and 206, at discharge after hydration and holding diuretics 210.A-fibHR controlledXarelto 20 mgamiodarone 200 mg, TSH checked, wnl.metoprolol 12.5 mg qd. For now his rate is controlled. Again we need to be following CBCs to see if he continues to become anemic in which case a Watchman will be stronger consideration as well as repeat GI workup and referral back to hematology for ongoing iron infusionsTransferred back here on 11/07 Since he has been here he has had sig wt. gain, most of it over the first 3 months, relatively stable since early December. Since return here he has been stable.Erika Sanchez (cardio) most recently on he said he had tachycardia mediated cardiomyopathy his ejection fraction has recovered but he has had several hospitalizations with acute congestive heart failure. He is aclass IIIb CHFpatient. He also has pulmonary disease and significant COPD. I am suggesting that we place a CardioMEMS device which will greatly help his providers in treating and tailoring his medical therapy for both pulmonary and heart failure. I explained risk benefits and alternatives to him regarding this. In addition I am going to send him to my colleague for a watchman implant he is a significant fall risk and is on anticoagulation for the atrial fibrillation. This was a shared decision making process. Blood pressure is mildly elevated today heart rate is 57 bpm. I will see him after the watchman consult and after my CardioMEMS procedure is completed. He has a total occluded right coronary artery with collaterals from the left. He has an appt tomorrow for the watchman consult.He has been d/c'd from rehab services and has transitioned to private pay.He is looking into [facility] as rest homes do not accept people on O2. Today he is sitting on the edge of the bed eating a whopper brought in by his fiancee.He says breathing is baseline, but complicated by the fact that the AC in his room is broken and it is very hot. He does have a fan blowing on him which helps. His PMH includes HTN, Afib on Xarelto, CAD with total RCA occlusion, CHF rEF (35%), COPD on home O2, s/p right ICH with left hemiparesis in 07/2024, HLD, cigarette smoker, and hx of AUD. Letty Mehta MD [address] [place] [address], [address], [place], [address], [facility] 01/23/2025 15:32:06
--- OUTSIDE RECORDS SUMMARY | 2025-04-05 06:33 | XMS_ITS | Encounter Summary ---
Author Organization [facility] Address [address] [place] [address] Phone Care Team Providers Care Manga Artist Name Role Phone Cassie Hardensy Mook HEM MARKER Primary Care Provider [phone] Yue Rodrigez RN Unavailable Jennifer Dash MEMBERSHIP MANAGER Unavailable felisa Yvonne Montana Unavailable Dennis Temple MBBS Unavailable [phone] Gabriela Barnhart STAFF NUCLEAR MEDICINE TECHNOLOGIST Unavailable Cj Meyer DO Primary Care Provider [phone] Encounter Details Date Type Department Care Team (Late st Contact Info) Description 12/13/2022 Procedure Pass [facility], Ct Scan - [address] [address] Social History Tobacco Use Types Packs/Day Years [...] AM EST Appointment [facility] [address] [place] [address] Conner Sneed MD [address] [place] [address] [email or web address] 05/14/2025 1:00 PM EST Office Visit [facility] [address] [facility] [facility] [address]rd Floor, [address] [place] [address] Rehan Landaverde MD [address] [place] [address] 09/13/2025 9:30 AM EDT Office Visit [facility] [address] [place] [address] Conner Sneed MD [address] [place] [address] [email or web address] [email or web address] Procedures Name Priority Associated Diagnoses Date/Ti me 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 IN MANAGER RADIATION Systolic congestive heart failure, unspecified HF chronicity documented as of this encounter Visit Diagnoses Not on filedocumented in this encounter Additional Health Concerns Infection Onset Date Last Indicated Resolved Time CoV-Risk Comment:Neg covid 02/20/2023 02/20/2023 02/21/2023 7:26 AM E DT CoV-Risk Comment:Per note documentation 07/17/2024 07/17/2024 5 8:52 AM EST CoV-Risk 08/08/2024 08/08/2024 08/19/2024 1:22 AM EST RSV 08/08/2024 08/08/2024 08/15/2024 1:22 AM EST CoV-Risk Comment:Per note documentation 08/29/2024 08/29/2024 7:27 AM EST Assessment Noted Time PHQ-2 Depression Total Score: 2 03/28/20 22 11:32 AM EDT documented as of this encounter Care Teams Manga Artist Relationship Specialty Start Date End Date Marlene Harden NP [address] [place] [address] PCP - General Family Medicine 01/10/22 08/07/24 Cj Meyer DO [address] [place] [address] PCP - General Internal Medicine 08/08/24 Yue Rodrigez, VENKATA [address] [place] [address] [facility] Math Interventionist 02/21/22 06/09/23 Jennifer Dash LCSW [address] [place] [address] [facility] Social Work 02/01/23 02/11/23 Yvonne Montana [address] [place] [address] [facility] Community Health Worker 02/25/23 06/09/23 Dennis Temple MBBS [address] [place] [address] [email or web address] Primary Oncologist Hematology and Oncology 04/02/23 Gabriela Barnhart CNP [address] [place] [address] (work) [email or web address] Nurse Practitioner Medical Oncology 01/16/24 documented as of this encounter Additional Source Comments The information contained in this document represents components of the legal health record. It is not the complete legal health record.[facility]
--- OUTSIDE RECORDS SUMMARY | 2025-04-05 06:33 | XMS_ITS | Encounter Summary ---
Author Organization [facility] Address [address] [facility] [address] [place] [address] Phone Care Team Providers Care Electrical Engineering Intern Name Role Phone Olegario Guy MD Primary Care Provider [phone] Marlene Harden NP Primary Care Provider [phone] Yue Rodrigez RN Unavailable Jennifer Dash CASEWORKER PROTECTIVE SERVICES Unavailable [email or web address] Yvonne Montana Unavailable Dennis Temple MBBS Unavailable Gabriela Barnhart MOLD OPERATOR Unavailable Cj Meyer DO Primary Care Provider [phone] Reason for Referral * MRI/CAT Scan - Closed Specialty Diagnoses / Procedures Referred By Contac t Referred To Contact Radiology Diagnoses Cervical radiculopathy Procedures MRI Cervical Spine Jie Wu NP Phone: tel: fax: [email or web address] Referral ID Status Reason Start Date Expiration Date Visits Re quested Visits Authorized [id number] Closed 03/21/2020 04/04/2020 1 1 Encounter Details Date Type Department Care Team (Latest Contact Info) Description 03/28/2020 Transcribe Orders [address] [address] Jie Wu NP [address] [place] [address] [email or web address] Cervical radiculopathy (Primary Dx) Social History Tobacco [...] AM EST Appointment [facility] [address] [place] [address] Conner Sneed MD [address] [place] [phone] [email or web address] 05/14/2025 1:00 PM EST Office Visit [facility] [address] [facility] 3[address], [address] [place] [address] Rehan Landaverde MD [address] [place] [address] 09/13/2025 9:30 AM EDT Office Visit [facility] [address] [facility] [place] [address] Conner Sneed MD [address] [address] [email or web address] Scheduled Procedures Name Priority Associated Diagnoses Date/Ti me 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 IN COAT EXAMINER Systolic congestive heart failure, unspecified HF chronicity [...] narrowing which seems to have progressed since 2014. C7-T1: There is an approximate 2 mm [...] No additional disc protrusionidentified. POS - [id number] us Jie Wu RESIN MAKER IMG MR XSPECIALTY Final Result documented in [...] documented as of this encounter Care Teams Electrical Engineering Intern Relationship Specialty Start Date End Date Olegario Guy MD [address] [place] [address] [address] [place] [address] [email or web address] PCP - General Family Medicine 03/28/20 01/09/22 Marlene Harden NP [address] [place] [address] PCP - General Family Medicine 01/10/22 08/07/24 Cj Meyer DO [address] [place] [address] PCP - General Internal Medicine 08/08/24 Yue Rodrigez, VENKATA [address] [place] [address] [facility] Signal Intelligence/Electronic Warfare 02/21/22 06/09/23 Jennifer Dash LCSW [address] [place] [address] [facility] Social Work 02/01/23 02/11/23 Yvonne Montana [address] [place] [address] [email or web address] [facility] Community Health Worker 02/25/23 06/09/23 Dennis Temple MBBS [address] [place] [address] [email or web address] Primary Oncologist Hematology and Oncology 04/02/23 Gabriela Barnhart CNP [address] [place] [address] [email or web address] Nurse Practitioner Medical Oncology 01/16/24 documented as of this encounter Additional Source Comments The information contained in this document represents components of the legal health record. It is not the complete legal health record.[facility]
--- OUTSIDE RECORDS SUMMARY | 2025-04-05 06:33 | XMS_ITS | Encounter Summary ---
Author Organization [facility] Address [address] [facility] [address] [place] [address] Phone Care Team Providers Care Caramel Candy Maker Helper Name Role Phone Olegario Guy MD Primary Care Provider [phone] Marlene Harden NP Primary Care Provider [phone] Yue Rodrigez RN Unavailable Jennifer Dash BALLAST CLEANING MACHINE OPERATOR Unavailable [email or web address] Yvonne Montana Unavailable Dennis Temple MBBS Unavailable Gabriela Barnhart LEVI MAKER Unavailable Cj Meyer DO Primary Care Provider [phone] Reason for Referral * MRI/CAT Scan - Closed Specialty Diagnoses / Procedures Referred By Contflorentin t Referred To Contact Radiology Diagnoses Abnormal chest x-ray Procedures CT Chest Marlene Harden NP Phone: tel: Referral ID Status Reason Start Date Expiration Date Visits Re quested Visits Authorized [id number] Closed 01/05/2022 01/05/2023 1 1 Encounter Details Date Type Department Care Team (Latest Contact Info) Description 01/05/2022 Transcribe Orders Virtual Department 30 [place] [address] Marlene Harden NP [address] [place] [address] Abnormal chest x-ray (Primary Dx) Social History [...] AM EST Appointment [facility] 30 [place] [address] Conner Sneed MD [address] [address] [email or web address] 05/14/2025 1:00 PM EST Office Visit [facility] 22 [facility] 3rd Floor, [address] [place] [address] Rehan Landaverde MD [address] [place] [address] 09/13/2025 9:30 AM EDT Office Visit [facility] 10 [place] [address] Conner Sneed MD [address] [place] [address] [email or web address] Scheduled Procedures Name Priority Associated Diagnoses Date/Ti me 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 IN CONSUMER AFFAIRS DIRECTOR Systolic congestive heart failure, unspecified HF [...] CT chest in 6-8 weeks. Marlene Harden NP IMG CT CHEST Final Result documented in [...] documented as of this encounter Care Teams Caramel Candy Maker Helper Relationship Specialty Start Date End Date Olegario Guy MD [address] [place] [address] [address] [place] [address] [email or web address] PCP - General Family Medicine 03/28/20 01/09/22 Marlene Harden NP 70 [place] [address] PCP - General Family Medicine 01/10/22 08/07/24 Cj Meyer DO 70 [place] [address] PCP - General Internal Medicine 08/08/24 Yue Rodrigez, RN [address] [place] [address] [email or web address] [facility] Parts Department Manager 02/21/22 06/09/23 Jennifer Dash LCSW [address] [place] [address] [email or web address] [facility] Social Work 02/01/23 02/11/23 Yvonne Montana [address] [place] [address] [email or web address] [facility] Community Health Worker 02/25/23 06/09/23 Dennis Temple MBBS [address] [place] [address] [email or web address] Primary Oncologist Hematology and Oncology 04/02/23 Gabriela Barnhart CNP [address] [place] [address] [email or web address] Nurse Practitioner Medical Oncology 01/16/24 documented as of this encounter Additional Source Comments The information contained in this document represents components of the legal health record. It is not the complete legal health record.[facility]
--- OUTSIDE RECORDS SUMMARY | 2025-04-05 06:33 | XMS_ITS | Encounter Summary ---
Author Organization [facility] Address [address] [place] [address] Phone Care Team Providers Care Evaluation Advisor Name Role Phone Temple, Ahmastu Mccann MBBS Unavailable [phone] Pack, Gabriela WIND TURBINE ELECTRICAL ENGINEER Unavailable Cj Meyer DO Primary Care Provider [phone] Encounter Details Date Type Department Care Team (Late st Contact Info) Description 11/07/2024 Procedure Pass [facility], Ct Scan - [address] [address] Social History Tobacco Use Types Packs/Day Years [...] AM EST Appointment [facility] 30 [place] [address] Conner Sneed MD [address] [address] [email or web address] 05/14/2025 1:00 PM EST Office Visit [facility] 3[facility], [address] [place] [address] Rehan Landaverde MD 50 [place] [address] 09/13/2025 9:30 AM EDT Office Visit [facility] 10 [facility] [address] Conner Sneed MD 10 [facility] 2nd [place] [address] [email or web address] Scheduled Procedures Name Priority Associated Diagnoses Date/Ti me 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 IN INSTALLMENT LOAN COLLECTOR Systolic congestive heart failure, unspecified HF chronicity documented as of this encounter Visit Diagnoses Not on filedocumented in this encounter Additional Health Concerns Assessment Noted Time PHQ-2 Depression Total Score: 2 03/28/20 22 11:32 AM EDT documented as of this encounter Care Teams Evaluation Advisor Relationship Specialty Start Date End Date Cj Meyer DO [address] [place] [address] PCP - General Internal Medicine 08/08/24 Dennis Temple MBBS [email or web address] Primary Oncologist Hematology and Oncology 04/02/23 Gabriela Barnhart CNP 30 [place] [address] Nurse Practitioner Medical Oncology 01/16/24 documented as of this encounter Additional Source Comments The information contained in this document represents components of the legal health record. It is not the complete legal health record.[facility]
--- OUTSIDE RECORDS SUMMARY | 2025-04-05 06:33 | XMS_ITS | Encounter Summary ---
Author Organization [facility] Address [address] [facility] [address] [place] [address] Phone Care Team Providers Care Environmental Assistant Name Role Phone Olegario Guy MD Primary Care Provider [phone] Marlene Harden NP Primary Care Provider [phone] Yue Rodrigez RN Unavailable Jennifer Dash GEAR SETTER Unavailable ndelabar Yvonne Montana Unavailable Dennis Temple MBBS Unavailable Gabriela Barnhart DANCE HALL HOST/HOSTESS Unavailable Cj Meyer DO Primary Care Provider Encounter Details Date Type Department Care Team (Late st Contact Info) Description 01/05/2022 Procedure Pass [facility], Ct Scan - [place] 30 [place] [address] Social History Tobacco Use Types Packs/Day Years [...] AM EST Appointment [facility] 30 [place] [address] Conner Sneed MD [address] [address] [email or web address] 05/14/2025 1:00 PM EST Office Visit [facility] 3[facility], [address] [place] [address] Rehan Landaverde MD 50 [place] [address] 09/13/2025 9:30 AM EDT Office Visit [facility] 10 [facility] [place] [address] Conner Sneed MD [address] [address] [email or web address] Scheduled Procedures Name Priority Associated Diagnoses Date/Ti nm 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 IN NUCLEAR ENGINEERING TECHNICIAN Systolic congestive heart failure, unspecified HF [...] documented as of this encounter Care Teams Environmental Assistant Relationship Specialty Start Date End Date Olegario Guy MD [address] [facility] [address] [place] [address] [email or web address] PCP - General Family Medicine 03/28/20 01/09/22 Marlene Harden NP 70 [place] [address] PCP - General Family Medicine 01/10/22 08/07/24 Cj Meyer DO [address] [place] [address] PCP - General Internal Medicine 08/08/24 Yue Rodrigez, VENKATA [address] [place] [address] [facility] Block Saw Operator 02/21/22 06/09/23 Jennifer Dash LCSW [address] [place] [address] [facility] Social Work 02/01/23 02/11/23 Yvonen Montana [address] [place] [address] [facility] Community Health Worker 02/25/23 06/09/23 Dennis Temple MBBS [address] [place] [address] [email or web address] Primary Oncologist Hematology and Oncology 04/02/23 Gabriela Barnhart CNP [address] [place] [address] Nurse Practitioner Medical Oncology 01/16/24 documented as of this encounter Additional Source Comments The information contained in this document represents components of the legal health record. It is not the complete legal health record.[facility]
--- OUTSIDE RECORDS SUMMARY | 2025-04-05 06:33 | XMS_ITS | Encounter Summary ---
Author Organization [facility] Address [address] [facility] [address] [place] [address] Phone Care Team Providers Care Switchboard Operator Supervisor Name Role Phone Marlene Harden NP Primary Care Provider [phone] Yue Rodrigez RN Unavailable Yvonne Montana Unavailable [email or web address] Dennis Temple MBBS Unavailable [phone] Gabriela Barnhart BEAM BUILDER HELPER Unavailable Cj Meyer DO Primary Care Provider [phone] Encounter Details Date Type Department Care Team (Late st Contact Info) Description 02/22/2023 Procedure Pass [facility] Endoscopy Admitting Dept Virtual Department 30 [place] [address] Social History Tobacco Use Types Packs/Day Years [...] AM EST Appointment [facility] 30 [place] [address] Conner Sneed MD [address] [place] [address] [email or web address] 05/14/2025 1:00 PM EST Office Visit [facility] 22 [facility] 3rd Floor, [address] [place] [address] Rehan Landaverde MD 50 [place] [address] 09/13/2025 9:30 AM EDT Office Visit [facility] 10 [place] [address] Conner Sneed MD [address] [place] [address] [email or web address] Scheduled Procedures Name Priority Associated Diagnoses Date/Ti me 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 IN REAL PROPERTY EVALUATOR Systolic congestive heart failure, unspecified HF chronicity [...] documented as of this encounter Care Teams Switchboard Operator Supervisor Relationship Specialty Start Date End Date Marlene Harden NP 70 [place] [address] PCP - General Family Medicine 01/10/22 08/07/24 Cj Meyer DO 70 [place] [address] PCP - General Internal Medicine 08/08/24 Yue Rodrigez RN [address] [place] [address] [email or web address] Hog Raiser 02/21/22 06/09/23 Yvonne Montana 10 [place] [address] [email or web address] [facility] Community Health Worker 02/25/23 06/09/23 Dennis Temple MBBS [address] [place] [address] [email or web address] Primary Oncologist Hematology and Oncology 04/02/23 Gabriela Barnhart CNP [address] [place] [address] Nurse Practitioner Medical Oncology 01/16/24 documented as of this encounter Additional Source Comments The information contained in this document represents components of the legal health record. It is not the complete legal health record.[facility]
--- OUTSIDE RECORDS SUMMARY | 2025-04-05 06:33 | XMS_ITS | Encounter Summary ---
Author Organization [facility] Address [address] [place] [address] Phone Care Team Providers Care Fire Engine Pump Operator Name Role Phone Temple, Ahmastu Mccann MBBS Unavailable Pack, Gabriela ELIGIBILITY TECHNICIAN Unavailable Cj Meyer DO Primary Care Provider [phone] Encounter Details Date Type Department Care Team (Late st Contact Info) Description 08/30/2024 Procedure Pass [facility], Ct Scan - [facility] 30 [place] [address] Social History Tobacco Use Types Packs/Day Years [...] AM EST Appointment [facility] 30 [place] [address] Conner Sneed MD [address] [address] [email or web address] 05/14/2025 1:00 PM EST Office Visit [facility] 3rd [facility], [address] [place] [address] Rehan Landaverde MD 50 [place] [address] 09/13/2025 9:30 AM EDT Office Visit [facility] 10 [facility] [place] [address] Conner Sneed MD 10 [facility] 2nd [place] [address] [email or web address] Scheduled Procedures Name Priority Associated Diagnoses Date/Ti me 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 IN TAPE FOLDING MACHINE OPERATOR Systolic congestive heart failure, unspecified HF chronicity documented as of this encounter Visit Diagnoses Not on filedocumented in this encounter Additional Health Concerns Infection Onset Date Last Indicated Resolved Time CoV-Risk Comment:Per note documentation 08/29/2024 08/29/2024 7:27 AM EST Assessment Noted Time PHQ-2 Depression Total Score: 2 03/28/20 22 11:32 AM EDT documented as of this encounter Care Teams Fire Engine Pump Operator Relationship Specialty Start Date End Date Cj Meyer DO [address] [place] [address] PCP - General Internal Medicine 08/08/24 Dennis Temple MBBS [email or web address] Primary Oncologist Hematology and Oncology 04/02/23 Gabriela Barnhart CNP 30 [place] [address] Nurse Practitioner Medical Oncology 01/16/24 documented as of this encounter Additional Source Comments The information contained in this document represents components of the legal health record. It is not the complete legal health record.[facility]
--- OUTSIDE RECORDS SUMMARY | 2025-04-05 06:33 | XMS_ITS | Encounter Summary ---
Author Organization [facility] Address [address] [facility] [address] [place] [address] Phone Care Team Providers Care Field Gauger Name Role Phone Olegario Guy MD Primary Care Provider [phone] Marlene Harden WEAPONS ELECTRICAL ENGINEERING OFFICER Primary Care Provider Yue Rodrigez RN Unavailable Jennifer Dash DIAGRAMMER Unavailable ndelabar Yvonne Montana Unavailable Dennis Temple MBBS Unavailable Gabriela Barnhart FUR DRESSER Unavailable Cj Meyer DO Primary Care Provider Encounter Details Date Type Department Care Team (Latest Contact Info) Description 11/25/2019 Transcribe Orders Virtual Department 30 [place] [address] Marlene Harden, WEAPONS ELECTRICAL ENGINEERING OFFICER [address] [place], [place] [phone] Atypical chest pain (Primary Dx) Social History [...] AM EST Appointment [facility] 30 [place] [address] Conner Sneed MD [address] [address] [email or web address] 05/14/2025 1:00 PM EST Office Visit [facility] 22 [facility] 3rd [facility], [address] [place] [address] Rehan Landaverde MD 50 [place] [address] 09/13/2025 9:30 AM EDT Office Visit [facility] 10 [facility] [place] [address] Conner Sneed MD [address] [address] [email or web address] Scheduled Procedures Name Priority Associated Diagnoses Date/Ti me 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 IN PAINT DEPARTMENT SUPERVISOR Systolic congestive heart failure, unspecified HF [...] documented as of this encounter Care Teams Field Gauger Relationship Specialty Start Date End Date Olegario Guy MD 230 [facility] [address] [place] [address] [email or web address] PCP - General Family Medicine 03/28/20 01/09/22 Marlene Harden NP [address] [place] [address] PCP - General Family Medicine 01/10/22 08/07/24 Cj Meyer DO [address] [place] [address] PCP - General Internal Medicine 08/08/24 Yue Rodrigez RN [address] [place] [address] [email or web address] [facility] Teacher Public Health 02/21/22 06/09/23 Jennifer Dash LCSW [address] [place] [address] [email or web address] [facility] Social Work 02/01/23 02/11/23 Yvonne Montana [address] [place] [address] [email or web address] [facility] Community Health Worker 02/25/23 06/09/23 Dennis Temple MBBS [address] [place] [address] [email or web address] Primary Oncologist Hematology and Oncology 04/02/23 Gabriela Barnhart CNP [address] [place] [address] [email or web address] Nurse Practitioner Medical Oncology 01/16/24 documented as of this encounter Additional Source Comments The information contained in this document represents components of the legal health record. It is not the complete legal health record.[facility]
--- OUTSIDE RECORDS SUMMARY | 2025-04-05 06:33 | XMS_ITS | Encounter Summary ---
Author Organization [facility] Address [address] [facility] [address] [place] [address] Phone Care Team Providers Care Electrical Mechanical Technician Name Role Phone Marlene Harden [employer] DRIVER Primary Care Provider [phone] Yue Rodrigez RN Unavailable Jennifer Dash NEWS DEPARTMENT INTERN Unavailable felisa Yvonne Montana Unavailable Dennis Temple MBBS Unavailable [phone] Gabriela Barnhart RESIDENT CARE MANAGER Unavailable Cj Meyer DO Primary Care Provider Encounter Details Date Type Department Care Team (Late st Contact Info) Description 02/20/2022 Procedure Pass [facility] [address] [place] [address] Social History Tobacco Use Types Packs/Day [...] 11:20 AM EDT Elizabeth Le RN * Grady Suicide Severity Rating Scale (Screener/Recent Self-Report) Question [...] AM EST Appointment [facility] 30 [place] [address] Conner Sneed MD [address] [place] [address] [email or web address] 05/14/2025 1:00 PM EST Office Visit [facility] [address] [place] [address] 3rd [facility], [address] [place] [address] Rehan Landaverde MD [address] [place] [address] 09/13/2025 9:30 AM EDT Office Visit [facility] 10 [place] [address] Conner Sneed MD [address] [place] [address] [email or web address] Scheduled Procedures Name Priority Associated Diagnoses Date/Ti me 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 IN ELECTRICIAN MANAGER Systolic congestive heart failure, unspecified HF chronicity documented as of this encounter Visit Diagnoses Not on filedocumented in this encounter Additional Health Concerns Infection Onset Date Last Indicated Resolved Time CoV-Risk 02/20/2022 02/20/2022 03/03/2022 1:22 AM EDT CoV-Risk 05/25/2022 05/25/202205/2605/26/2022 6:36 AM EST CoV-Risk Comment:Neg covid 02/20/2023 02/20/2023 02/21/2023 7:26 AM E DT CoV-Risk Comment:Per note documentation 07/17/2024 07/17/2024 8:52 AM EST CoV-Risk 08/08/2024 08/08/2024 08/19/2024 1:22 AM EST RSV 08/08/2024 08/08/2024 08/15/2024 1:22 AM EST CoV-Risk Comment:Per note documentation 08/29/2024 08/29/2024 7:27 AM EST documented as of this encounter Care Teams Electrical Mechanical Technician Relationship Specialty Start Date End Date Marlene Harden [employer] DRIVER 70 [place] [address] PCP - General Family Medicine 01/10/22 08/07/24 Cj Meyer DO 70 [place] [address] PCP - General Internal Medicine 08/08/24 Yue Rodrigez, VENKATA [address] [place] [address] [email or web address] [facility] Rotary Saw Operator 02/21/22 06/09/23 Jennifer Dash LCSW [address] [place] [address] [email or web address] [facility] Social Work 02/01/23 02/11/23 Yvonne Montana [address] [place] [address] [email or web address] [facility] Community Health Worker 02/25/23 06/09/23 Dennis Temple MBBS [address] [place] [address] [email or web address] Primary Oncologist Hematology and Oncology 04/02/23 Gabriela Barnhart CNP [address] [place] [address] [email or web address] Nurse Practitioner Medical Oncology 01/16/24 documented as of this encounter Additional Source Comments The information contained in this document represents components of the legal health record. It is not the complete legal health record.[facility]
--- OUTSIDE RECORDS SUMMARY | 2025-04-05 06:33 | XMS_ITS | Encounter Summary ---
Author Organization [facility] Address [address] [facility] [address] [place] [address] Phone Care Team Providers Care Pediatric Audiologist Name Role Phone Marlene Harden SHRIMP PEELING MACHINE TENDER Primary Care Provider [phone] Yue Rodrigez RN Unavailable Jennifer Dash TACTICAL AIR CONTROL PARTY Unavailable felisa Yvonne Montana Unavailable Dennis Temple MBBS Unavailable Gabriela Barnhart AIRPLANE PATROL PILOT Unavailable Cj Meyer DO Primary Care Provider [phone] Encounter Details Date Type Department Care Team (Late st Contact Info) Description 05/14/2022 Transcribe Orders [facility] 30 [place] [address] Marlene Harden NP [address] [place], [place] [phone] Social History Tobacco Use Types Packs/Day Years [...] AM EST Appointment [facility] [address] [place] [address] Conner Sneed MD 10 [facility] 2nd [place] [address] [email or web address] 05/14/2025 1:00 PM EST Office Visit [facility] 22 [facility] 3rd Floor, [address] [place] [address] Rehan Landaverde MD 50 [place] [address] 09/13/2025 9:30 AM EDT Office Visit [facility] 10 [facility] [place] [address] Conner Sneed MD [address] [address] [email or web address] Scheduled Procedures Name Priority Associated Diagnoses Date/Ti me 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 IN PERFORMANCE ANALYST Systolic congestive heart failure, unspecified HF [...] documented as of this encounter Care Teams Pediatric Audiologist Relationship Specialty Start Date End Date Marlene Harden NP 70 [place] [address] PCP - General Family Medicine 01/10/22 08/07/24 Cj Meyer DO 70 [place] [address] PCP - General Internal Medicine 08/08/24 Yue Rodrigez RN [address] [place] [address] [email or web address] [facility] Spark Plug Tester 02/21/22 06/09/23 Jennifer Dash LCSW [address] [place] [address] [facility] Social Work 02/01/23 02/11/23 Yvonne Motnana [address] [place] [address] [email or web address] [facility] Community Health Worker 02/25/23 06/09/23 Dennis Temple MBBS [address] [place] [address] [email or web address] Primary Oncologist Hematology and Oncology 04/02/23 Gabriela Barnhart CNP [address] [place] [address] [email or web address] Nurse Practitioner Medical Oncology 01/16/24 documented as of this encounter Additional Source Comments The information contained in this document represents components of the legal health record. It is not the complete legal health record.[facility]
--- OUTSIDE RECORDS SUMMARY | 2025-04-05 06:33 | XMS_ITS | Encounter Summary ---
Author Organization [facility] Address [address] [facility] [address] [place] [address] Phone Care Team Providers Care Credit And Collections Analyst Name Role Phone Olegario Guy MD Primary Care Provider [phone] Marlene Harden NP Primary Care Provider Yue Rodrigez RN Unavailable Jennifer Dash BARBER APPRENTICE Unavailable [email or web address] Yvonne Montana Unavailable [email or web address] Dennis Temple MBBS Unavailable Gabriela Barnhart MUSICAL INSTRUMENTS ASSEMBLER Unavailable Cj Meyer DO Primary Care Provider Encounter Details Date Type Department Care Team (Latest Contact Info) Description 03/28/2020 Transcribe Orders Virtual Department 30 [place] [address] Jie Wu NP [address] [place] [phone] [email or web address] .Direct Dermatology Neck pain (Primary Dx) Social History Tobacco [...] AM EST Appointment [facility]FT Lab 30 [place] [address] Conner Sneed MD [address] [address] [email or web address] 05/14/2025 1:00 PM EST Office Visit [facility] [address] [facility] 3rd Floor, [address] [place] [address] Rehan Landaverde MD [address] [place] [address] 09/13/2025 9:30 AM EDT Office Visit [facility] All[facility] 10 [facility] [place] [address] Conner Sneed MD [address] [place] [address] [email or web address] Scheduled Procedures Name Priority Associated Diagnoses Date/Ti me 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 IN APPRAISER IRRIGATION TAX Systolic congestive heart failure, unspecified HF chronicity [...] stable. No evidence of instability. POS - [id number] Narrative 04/01/2020 9:03 AM EDT HISTORY: Left [...] is stable. No evidence ofinstability. POS - [id number] Jie Wu AIR TECHNICIAN IMG XR SPINE Final Result documented in [...] documented as of this encounter Care Teams Credit And Collections Analyst Relationship Specialty Start Date End Date Olegario Guy MD [address] [facility] [address] [place] [address] [email or web address] PCP - General Family Medicine 03/28/20 01/09/22 Marlene Harden, AIR TECHNICIAN 70 [place] [address] PCP - General Family Medicine 01/10/22 08/07/24 Cj Meyer DO [address] [place] [address] PCP - General Internal Medicine 08/08/24 Yue Rodrigez, VENKATA [address] [place] [address] [address] [facility] Angiography Nurse 02/21/22 06/09/23 Jennifer Dash LCSW [address] [place] [address] [facility] Social Work 02/01/23 02/11/23 Yvonne Montana [address] [place] [address] [email or web address] [facility] Community Health Worker 02/25/23 06/09/23 Dennis Temple MBBS [address] [place] [address] [email or web address] Primary Oncologist Hematology and Oncology 04/02/23 Gabriela Barnhart CNP [address] [place] [address] Nurse Practitioner Medical Oncology 01/16/24 documented as of this encounter Additional Source Comments The information contained in this document represents components of the legal health record. It is not the complete legal health record.[facility]
--- OUTSIDE RECORDS SUMMARY | 2025-04-05 06:33 | XMS_ITS | Encounter Summary ---
Author Organization [facility] Address [address] [place] [address] Phone Care Team Providers Care Automobile Service Advisor Name Role Phone Marlene Harden APPEALS REVIEWER VETERAN Primary Care Provider Yue Rodrigez RN Unavailable Yvonne Montana Unavailable [email or web address] Dennis Temple MBBS Unavailable [phone] Gabriela Barnhart DIAMOND DIE MAKER Unavailable Cj Meyer DO Primary Care Provider [phone] Encounter Details Date Type Department Care Team (Late st Contact Info) Description 03/03/2023 Procedure Pass [facility], Ct Scan - [address] [address] Social History Tobacco Use Types Packs/Day Years [...] 3:07 PM EDT Alycia Mahajan RN * [place] Suicide Severity Rating Scale (Screener/Recent Self-Report) Question [...] AM EST Appointment [facility] 30 [place] [address] Conner Sneed MD [address] [place] [address] 2nd [place] [address] [email or web address] 05/14/2025 1:00 PM EST Office Visit [facility] [address] [place] [address] 3rd Floor, [address] [place] [address] Rehan Landaverde MD 50 [place] [address] 09/13/2025 9:30 AM EDT Office Visit [facility] 10 [place] [address] Conner Sneed MD [address] [place] [address] 2[address] [place] [address] [email or web address] Scheduled Procedures Name Priority Associated Diagnoses Date/Ti me 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 IN CITIZENSHIP INSTRUCTOR Systolic congestive heart failure, unspecified HF chronicity [...] documented as of this encounter Care Teams Automobile Service Advisor Relationship Specialty Start Date End Date Marlene Harden NP 70 [place], [place] PCP - General Family Medicine 01/10/22 08/07/24 Cj Meyer DO 70 [place], [place] PCP - General Internal Medicine 08/08/24 Yue Rodrigez, VENKATA [address] [place] [address] [facility] 02/21/22 06/09/23 Yvonne Montana [address] [place] [address] [facility] Community Health Worker 02/25/23 06/09/23 Dennis Temple MBBS [address] [place] [address] [email or web address] Primary Oncologist Hematology and Oncology 04/02/23 Gabriela Barnhart CNP [address] [place] [address] [email or web address] Nurse Practitioner Medical Oncology 01/16/24 documented as of this encounter Additional Source Comments The information contained in this document represents components of the legal health record. It is not the complete legal health record.[facility]
--- OUTSIDE RECORDS SUMMARY | 2025-04-05 06:33 | XMS_ITS | Encounter Summary ---
Author Organization [facility] Address [address] [facility] [address] [place] [address] Phone Care Team Providers Care Expediter Service Order Name Role Phone Olegario Guy MD Primary Care Provider [phone] Marlene Harden PATIENT SERVICES ASSISTANT Primary Care Provider Yue Rodrigez RN Unavailable Jennifer Dash DIGITAL SPECIALIST Unavailable [email or web address] Yvonne Montana Unavailable Dennis Temple MBBS Unavailable Gabriela Barnhart PNEUMATIC JACKETER Unavailable Cj Meyer DO Primary Care Provider [phone] Encounter Details Date Type Department Care Team (Latest Contact Info) Description 01/02/2022 Transcribe Orders Virtual Department 30 [place] [address] Marlene Harden, CAM [address] [place], [place] [phone] Shortness of breath (Primary Dx); Dyspnea, unspecified [...] Info) Description 05/13/2025 9:[address] [facility] PFT Lab 30 [place] [address] Conner Sneed MD [address] [address] [email or web address] 05/14/2025 1:00 PM EST Office Visit [facility] [address], [address] [place] [address] Rehan Landaverde MD [address] [place] [address] 09/13/2025 9:30 AM EDT Office Visit [facility] Pulmonary, Allergy and Critical Care Medicine 10 [place] [address] Conner Sneed MD [address] [place] [address] [email or web address] Scheduled Procedures Name Priority Associated Diagnoses Date/Ti me 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 Clinical and radiographic correlation advised. Result [facility] Marlene Harden NP PFT ORDERABLES Final Result [...] documented as of this encounter Care Teams Expediter Service Order Relationship Specialty Start Date End Date Olegario Guy MD 230 [facility] [address] [place] [address] [email or web address] PCP - General Family Medicine 03/28/20 01/09/22 Marlene Harden PATIENT SERVICES ASSISTANT 70 [place] [address] PCP - General Family Medicine 01/10/22 08/07/24 Cj Meyer DO [address] [place] [address] PCP - General Internal Medicine 08/08/24 Yue Rodrigez RN [address] [place] [address] [email or web address] [facility] Announcer 02/21/22 06/09/23 Jennifer Dash LCSW [address] [place] [address] [email or web address] [facility] Social Work 02/01/23 02/11/23 Yvonne Montana [address] [place] [address] [email or web address] [facility] Community Health Worker 02/25/23 06/09/23 Dennis Temple MBBS [address] [place] [address] [email or web address] Primary Oncologist Hematology and Oncology 04/02/23 Gabriela Barnhart CNP [address] [place] [address] [email or web address] Nurse Practitioner Medical Oncology 01/16/24 documented as of this encounter Additional Source Comments The information contained in this document represents components of the legal health record. It is not the complete legal health record.[facility]
--- OUTSIDE RECORDS SUMMARY | 2025-04-05 06:33 | XMS_ITS | Encounter Summary ---
Author Organization [facility] Address [address] [place] [address] Phone Care Team Providers Care Refuse Collector Supervisor Name Role Phone Temple, Ahmastu Mccann MBBS Unavailable Pack, Gabriela CUSTOM GRINDER Unavailable Cj Meyer DO Primary Care Provider [phone] Encounter Details Date Type Department Care Team (Late st Contact Info) Description 12/09/2024 Procedure Pass [facility], Ct Scan - [address] [address] Social History Tobacco Use Types Packs/Day Years [...] AM EST Appointment [facility] 30 [place] [address] Conner Sneed MD [address] [address] [email or web address] 05/14/2025 1:00 PM EST Office Visit [facility] [address], [address] [place] [address] Rehan Landaverde MD 50 [place] [address] 09/13/2025 9:30 AM EDT Office Visit [facility] All[facility] Critical [facility] 10 [facility] [place] [address] Conner Sneed MD 10 [facility] 2nd [place] [address] [email or web address] Scheduled Procedures Name Priority Associated Diagnoses Date/Ti me 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 IN THERMOMETER TESTER Systolic congestive heart failure, unspecified HF chronicity documented as of this encounter Visit Diagnoses Not on filedocumented in this encounter Additional Health Concerns Assessment Noted Time PHQ-2 Depression Total Score: 2 03/28/20 22 11:32 AM EDT documented as of this encounter Care Teams Refuse Collector Supervisor Relationship Specialty Start Date End Date Cj Meyer DO [address] [place] [address] PCP - General Internal Medicine 08/08/24 Dennis Temple MBBS [email or web address] Primary Oncologist Hematology and Oncology 04/02/23 Gabriela Barnhart CNP 30 [place] [address] Nurse Practitioner Medical Oncology 01/16/24 documented as of this encounter Additional Source Comments The information contained in this document represents components of the legal health record. It is not the complete legal health record.[facility]
--- OUTSIDE RECORDS SUMMARY | 2025-04-05 06:33 | XMS_ITS | Encounter Summary ---
Author Organization [facility] Address [address] [place] [address] Phone Care Team Providers Care Nurses Supervisor Name Role Phone Temple, Ahmastu Mccann MBBS Unavailable Pack, Gabriela CENTURA TECHNICAL LEAD SENIOR DEVELOPER Unavailable Cj Meyer DO Primary Care Provider [phone] Encounter Details Date Type Department Care Team (Late st Contact Info) Description 08/30/2024 Procedure Pass [facility], Ct Scan - [facility] 30 [place] [address] Social History Tobacco Use Types Packs/Day Years [...] AM EST Appointment [facility] 30 [place] [address] Conner Sneed MD [address] [address] [email or web address] 05/14/2025 1:00 PM EST Office Visit [facility] 3[address] [facility], [address] [place] [address] Rehan Landaverde MD 50 [place] [address] 09/13/2025 9:30 AM EDT Office Visit [facility], Allergy [facility] Critical Care Medicine 10 [facility] [place] [address] Cnoner Sneed MD 10 [facility] 2nd [place] [address] [email or web address] Scheduled Procedures Name Priority Associated Diagnoses Date/Ti me 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 IN AFTERNOON NANNY Systolic congestive heart failure, unspecified HF chronicity documented as of this encounter Visit Diagnoses Not on filedocumented in this encounter Additional Health Concerns Infection Onset Date Last Indicated Resolved Time CoV-Risk Comment:Per note documentation 08/29/2024 08/29/2024 7:27 AM EST Assessment Noted Time PHQ-2 Depression Total Score: 2 03/28/20 22 11:32 AM EDT documented as of this encounter Care Teams Nurses Supervisor Relationship Specialty Start Date End Date Cj Meyer DO [address] [place] [address] PCP - General Internal Medicine 08/08/24 Dennis Temple MBBS [email or web address] Primary Oncologist Hematology and Oncology 04/02/23 Gabriela Barnhart CNP 30 [place] [address] Nurse Practitioner Medical Oncology 01/16/24 documented as of this encounter Additional Source Comments The information contained in this document represents components of the legal health record. It is not the complete legal health record.[facility]
--- OUTSIDE RECORDS SUMMARY | 2025-04-05 06:33 | XMS_ITS | Clinical Summary ---
Author Organization [facility] Address [address] [place] [address] Care Team Providers Care Firer Low Pressure Name Role Phone Marlene Harden NP Primary Care Provider Social History Tobacco Use Types Packs/Day Years [...] patient's age to complete this topic Insurance [facility] Plan Care Teams Firer Low Pressure Relationship Specialty Start Date End Date Marlene Harden NP 70 [place] [address] PCP - General Nurse Practitioner 03/05/23
--- OUTSIDE RECORDS SUMMARY | 2025-04-05 06:33 | XMS_ITS | Encounter Summary ---
Author Organization [facility] Address [address] [facility] [address] [place] [address] Phone Care Team Providers Care Calibration Technician Name Role Phone Cassie Hardensy Mook SHEET METAL DUCT INSTALLER HELPER Primary Care Provider [phone] Yue Rodrigez RN Unavailable Jennifer Dash HOSIERY PAIRER Unavailable felisa Yvonne Montana Unavailable Dennis Temple MBBS Unavailable [phone] Gabriela Barnhart MANAGER FINANCIAL PLANNING Unavailable Cj Meyer DO Primary Care Provider [phone] Encounter Details Date Type Department Care Team (Late st Contact Info) Description 12/13/2022 Procedure Pass [facility], Ct Scan - [address] [address] Social History Tobacco Use Types Packs/Day Years [...] AM EST Appointment [facility]FT [facility] 30 [place] [address] Conner Sneed MD [address] [place] [address] [email or web address] 05/14/2025 1:00 PM EST Office Visit [facility] [address] [facility] 3rd Floor, [address] [place] [address] Rehan Landaverde MD [address] [place] [address] 09/13/2025 9:30 AM EDT Office Visit [facility], Allergy [facility] Critical [facility] Medicine 10 [place] [address] Conner Sneed MD [address] [place] [address] [email or web address] Scheduled Procedures Name Priority Associated Diagnoses Date/Ti me 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 Systolic congestive heart failure, unspecified HF [...] documented as of this encounter Care Teams Calibration Technician Relationship Specialty Start Date End Date Marlene Harden NP 70 [place] [address] PCP - General Family Medicine 01/10/22 08/07/24 Cj Meyer DO 70 [place] [address] PCP - General Internal Medicine 08/08/24 Yue Rodrigez, VENKATA [address] [place] [address] [facility] Superintendent Commissary 02/21/22 06/09/23 Jennifer Dash LCSW [address] [place] [address] [facility] Social Work 02/01/23 02/11/23 Yvonne Montana [address] [place] [address] [email or web address] [facility] Community Health Worker 02/25/23 06/09/23 Dennis Temple MBBS [address] [place] [address] [email or web address] Primary Oncologist Hematology and Oncology 04/02/23 Gabriela Barnhart CNP 30 [place] [address] (work) [email or web address] Nurse Practitioner Medical Oncology 01/16/24 documented as of this encounter Additional Source Comments The information contained in this document represents components of the legal health record. It is not the complete legal health record.[facility]
--- OUTSIDE RECORDS SUMMARY | 2025-04-05 06:34 | XMS_ITS | Clinical Summary ---
Author Organization [facility] Address [address] [facility] [address] [place] [address] Phone Care Team Providers Care Electronic Induction Hardener Name Role Phone Temple, Ahmastu Mccann MBBS Unavailable [phone] ObeyPolaen LYE TREATER Unavailable jC Meyer DO Primary Care Provider [phone] Allergies Active Allergy Reactions Criticality Noted Date [...] (LIPITOR) 40 MG tabletIndicatio ns:Atherosclero sis of muck[place] coronary artery of muck[place] heart without angina pectoris TAKE 1 TABLET [...] MG immediate release tablet 09/01/2 025 Active torsemide (DEMADEX) 20 MG tablet Take 20 mg by mouth daily. Active albuterol (VENTOLIN HFA) 90 mcg/actuation inhaler [...] also going to discuss this with his ophthalmic asst in 1 month to see if he would like to proceed. Assessment & Plan (11/06/2024 4:37 PM EDT): -last stable in Aug on lasix 40 mg qd entresto 24-26 mg bid Most recent echo July showed recovered EF 65 to 70% general good cardiac function. Do not see any additional echocardiograms on the discharge paperwork from [facility] or [facility] where he has been. -gaining wt at correction and seemed to be overdiuresed in recent [...] general good cardiac function -gaining wt at correction and seemed to be overdiuresed in recent [...] 70% general good cardiac function During his correction stay stay 1 month well being significantly [...] stable Also has been on steroids at correction. This may be contributing to his weight gain. Being moderately anemic probably is not helping. Continue treestrellaegy and carlos. He had a CT of the chest end of August that did not show any other findings than emphysema. His echocardiogram did not show signs of pulmonary hypertension. Chronic pain Continue chronic oxy Assessment & Plan (11/05/2024 8:08 AM EDT): Chronic COPD on home O2 2L and stable Also has been on steroids at correction. Continue trellegy and kelvinbs. Chronic pain Continue chronic oxy Assessment & Plan (11/05/2024 1:26 AM EDT): Chronic COPD on home O2 2L and stable Also has been on steroids at correction. Continue trellegvincent and carlos. Chronic pain Continue chronic oxy Acute on [...] rehab Left hemiparesis 08/05/2024 Overview (08/30/2024): Per [facility] discharge summary 08/03/24 Cerebral hemorrhage 08/04/2024 Overview (08/30/2024): Right lentiform nucleus hemorrhage Per [facility] discharge summary 08/03/24 Assessment & [...] initial hospitalization 07/30/2024, after initially presenting to [facility] and had findings of acute bleed. Immediately prior to that patient had a hospitalization for COPD exacerbation and suspected seizure where patient was placed on Keppra. Was discharged on 08/03/2024 to rehab however redeveloped worsening headache, found to have worsening vasogenic edema and subsequently readmitted at [facility] on 08/08/2024. Hospital course was complicated by COPD exacerbation secondary to RSV virus with patient was subsequently discharged on a steroid taper to [facility] rehab. -- No new concerns. His DOAC [...] initial hospitalization 07/30/2024, after initially presenting to [facility] and had findings of acute bleed. Immediately prior to that patient had a hospitalization for COPD exacerbation and suspected seizure where patient was placed on Keppra. -Was discharged on 08/03/2024 to rehab however redeveloped worsening headache, found to have worsening vasogenic edema and subsequently readmitted at [facility] on 08/08/2024. Hospital course was complicated by COPD exacerbation secondary to RSV virus with patient was subsequently discharged on a steroid taper to [facility] rehab. -Through reviewing discharge records from [facility] on 08/13/2024, recommendations from neurology [...] or leukocytosis -Ceftriaxone azithromycin -repeat chest x-ray -cafeteria monitor -Supplemental oxygen Other hyperlipidemia 06/18/2024 Assessment [...] in late September until now -labs from correction 11 down to 7s, now in 8s. [...] with GI in the office. - ct xarelto cautiously Assessment & Plan (11/05/2024 8:08 AM EDT): - fatigue increased dyspnea with exertion that was of insidious onset over several weeks in late September until now -labs from correction 11 down to 7s, now in 8s, [...] no source was found anemia - ct xarelto cautiously Assessment & Plan (11/05/2024 1:13 AM EDT): Will that patient had fatigue increased dyspnea with exertion that was of insidious onset over several weeks in late September until now Labs provided by the correction reveal a drop in hemoglobin during that [...] other than possible hypovolemia. Symptomatic anemia 02/21/2023 Overview (03/29/2025): He is already Assessment & Plan (03/29/2025 10:19 AM EDT): Noticed less bleeding when he gets cut off anticoagulation he is status post watchman which went really well Assessment & Plan (02/21/2023 1:17 AM EDT): Normocytic. Endorses dark-colored stools (but not black) over the past month. Highest suspicion is that of chronic GI loss from Xarelto. Last colonoscopy 4-5 years ago. We will transfuse 2 units and follow a posttransfusion hemoglobin. We will consult gastroenterology. Atherosclerosis of coronary artery 07/12/2022 Assessment & Plan (03/29/2025 10:20 AM EDT): Asymptomatic in July he had an echo showing an EF that was preserved at 65% Assessment & Plan (06/18/2024 12:33 PM EST): Proven by cardiac cath 06/2022-occluded RCA. He denies any symptoms concerning for angina at this time. Continue to optimize cardiovascular risk factors including lipids, BP, tobacco use as discussed. Follow-up in 3 months. Acute systolic congestive heart failure, NYHA cl ass 3 04/30/2022 Assessment & Plan (03/29/2025 10:19 AM EDT): Clinically euvolemic on the above-mentioned medications Assessment & Plan (05/04/2022 5:38 PM EDT): [...] need coronary angiography during this hospital admission. Chronic pain syndrome 04/30/2022 Overview (04/30/2022): Due [...] (paroxysmal atrial fibrillation) 04/30/2022 Assessment & Plan (03/29/2025 10:19 AM EDT): Currently in normal sinus rhythm on amiodarone which is not a great medication for him long-term as he has pulmonary disease. Assessment & Plan (12/14/2024 11:12 AM EDT): [...] on 08/26/2024 per recommendations from neurology from [facility] upon discharge with instructions to discontinue aspirin. -- Continue Toprol-XL, amiodarone rivaroxaban Assessment & Plan (08/30/2024 6:01 PM EST): Continue amiodarone, metoprolol 50 mg, Xarelto 20 mg. Patient resume Xarelto on 08/26/2024 per recommendations from neurology from [facility] upon discharge with instructions to [...] PM EST): With rapid ventricular response. His ophthalmic asst, Dr. Morales started him on amiodarone 05/26 [...] however, shared decision to send patient to [facility] ED for evaluation/treatment to monitor closely [...] improvement, no ICD was recommended. Follow-up with ophthalmic asst in 3 months once resulted, sooner for [...] Resolved Date Chest pain, atypical 05/28/2022 023 Cervicalgia 04/30/2022 02/21/2023 Atrial fibrillation with RVR [...] Encounters Date Type Department Care Team Description 03/30/2025 Telephone [facility] Pulmonary, Allergy and Critical Care Medicine [address] [facility] [place] [address] Conner Sneed MD 03/29/2025 10:15 AM EDT Office Visit [facility] [address], [address] [place] [address] Zack Sanchez DO Acute systolic congestive heart failure, NYHA class 3 (Primary Dx); Symptomatic anemia; PAF (paroxysmal atrial fibrillation); Atherosclerosis of muckleshoot coronary artery of muck[place]oot heart without angina pectoris 03/29/2025 Telephone [facility] [address], [address] [place], [place] [id number] Zack Sanchez DO 03/16/2025 9:00 AM EDT Office Visit [facility] Pulmonary, Allergy and Critical Care Medicine [address] [place] [address] Conner Sneed MD Former smoker; Pulmonary emphysema, unspecified emphysema type 03/16/2025 Telephone [facility] Pulmonary, Allergy and Critical Care Medicine 10 [place] [address] Cindy Tovar POC order 03/11/2025 Refill [facility] Pulmonary, Allergy and Critical Care Medicine [address] [place] [address] Conner Sneed MD Medication Refill 03/03/2025 Telephone [facility] [address] Floor, [address] [place] [address] Bailey Ocasio 01/22/2025 3:40 PM EDT Office Visit [facility] [address] [facility] 3[address] Floor, [address] [place] [address] Rehan Landaverde MD Paroxysmal atrial fibrillation (Primary [...] Sign Reading Time Taken Comments Blood Pressure 132/78 03/29/2025 10:08 AM EDT Pulse 65 03/29/2025 10:08 AM EDT Temperature 36.4 C (97.5 F) 03/16/2025 8:59 AM EDT Respiratory Rate 18 11/07/2024 3:17 PM EDT Oxygen Saturation 95% 03/29/2025 10:08 AM EDT Inhaled Oxygen Concentration 35% 07/22/2024 1 1:00 AM EST Weight 98 kg (216 lb) 03/29/2025 10:08 AM EDT Height 170.2 cm (5' 7.01 ) 03/29/2025 10:08 AM E DT Body Mass Index 33.82 03/29/2025 10:08 AM EDT Plan of Treatment Upcoming Encounters Date Type Department Care Team (Late st Contact Info) Description 05/13/2025 9:30 AM EST Appointment [facility] [address] [place] [address] Conner Sneed MD [address] [place] [phone] [email or web address] 05/14/2025 1:00 PM EST Office Visit [facility] [address] [facility] 3[address] Floor, [address] [place] [address] Rehan Landaverde MD [address] [place] [address] 09/13/2025 9:30 AM EDT Office Visit [facility] Pulmonary, Allergy and Critical Care Medicine [address] [place] [address] Conner Sneed MD [address] [place] [address] [email or web address] Scheduled Procedures Name Priority Associated Diagnoses Date/Ti me 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 IN FRONT END SPECIALIST Systolic congestive heart failure, unspecified HF [...] 2024- season) 2025 11/29/2020, 11/29/2020 BLOOD PRESSURE 09/26/2025 03/29/2025 ALT LEVEL (ALANINE AMINOTRANSFERASE) 11/05/2025 11/05/2024, 11/04/2024, 08/31/2024, Additional history exists TSH LEVEL 11/07/2025 11/07/2024, 0812/2022, 02/20/2023, Additional history exists LUNG CANCER SCREENING (LDCT Only) 12/19/2025 12/19/2024, 08/30/2024, 07/18/2024, Additional history exists SMOKING Hx and SMOKELESS TOBACCO SCREENING 03/29/2026 03/29/2025 Adult Td,Tdap Booster 09/28/2026 09/28/2016 SCREENING FOR [...] this topic Medical Devices Implanted Type Area Human Resources Assistant Device Identifier Shelf Expiration Date Model / [...] indication for this examination in [facility]: Lung Cancer Screening - FORMER smoker, quit [...] indication for this examination in [facility]:Lung Cancer Screening - FORMER smoker, quit in [...] EDT) TSH 3.65 0.27 - 4.20 uIU/mL [facility] Blood 11/07/2024 5:31 AM EDT 11/07/2024 6:00 AM EDT us Giuliano Adan MD LAB BLOOD ORDERABLES Final Result [facility] [address] [place] [address] * (ABNORMAL) Comprehensive metabolic panel (11/05/2024 5:57 AM EDT) SODIUM 139 133 - 146 mmol/L [facility] POTASSIUM 3.6 3.3 - 5.1 mmol/L [facility] CHLORIDE 97 96 - 108 mmol/L [facility] CO2 32 21 - 35 mmol/L [facility] BUN 39(H) 6 - 19 mg/dL [facility] CREATININE 1.90(H) 0.5 - 1.5 mg/dL [facility] GLUCOSE 112(H) 70 - 99 mg/dL [facility] ALBUMIN 3.2(L) 3.9 - 4.8 g/dL [facility] TOTAL PROTEIN 6.2(L) 6.5 - 8.0 g/dL [facility] CALCIUM 8.5 8.4 - 10.3 mg/dL [facility] ALKALINE PHOSPHATASE 91 39 - 117 U/L [facility] TOTAL BILIRUBIN <0.2 0.0 - 1.2 mg/dL [facility] AST 16 0 - 37 U/L [facility] ALT 14 0 - 40 U/L [facility] GLOBULIN 3.0 1 - 4.8 g/dL [facility] EGFR 40(L) >59 mL/min/1.7 3m2 [facility] Comment:Estimated glomerular filtration rate calculated using the CKD-EPI refit equation. ANION GAP 14 10 - 20 mmol/L [facility] Blood 11/05/2024 5:57 AM EDT 11/05/2024 6:34 AM EDT Anastacia Dietrich MD LAB BLOOD ORDERABLES Final Result Performing Organization Address City/State/[facility] Co de Phone Number [address] [address] * ENDOSCOPY, COLON (02/22/2023 1:37 PM EDT) Narrative Transcriptions Ioana Armijo MD - 02/22/2023 1:37 PM EDT [facility] Patient Name: Yousif Orellana Attending MD:: IOANA ARMIJO MD, Procedure Date: 02/22/2023 1:37 PM Date of : 1965 Age: 57 Admit Type: Inpatient Gender: Male Room: [place] [address] Referring MD: SHANIKA MONTEMAYOR NP Exam Type: [...] 1:37 PM Procedure Code(s): --- Professional --- 06015, Colonoscopy, flexible; diagnostic, including collection of specimen(s) by brushing or washing, when performed (separateprocedure) --- Technical --- 02475, Colonoscopy, flexible; diagnostic, including collection of specimen(s) by brushing or washing, when performed (separateprocedure) Diagnosis Code(s): --- Professional --- D50.9, Iron deficiency anemia, unspecified --- Technical --- D50.9, Iron deficiency anemia, unspecified CPT copyright 2021 [employer]. All rights reserved. The codes documented in this report are preliminary and upon share holder reviewmay be revised to meet current compliance requirements. Procedure Date: 02/22/2023 1:37:[address] [place] [address] Shanika Montemayor NP GI PROCEDURE ORDERABLES Final R esult from Last 3 Months or Most Recently Relevant to Health Maintenance Insurance [facility] MEDICARE PART A & B Member Subscriber Plan / Payer (Ef fective 2023-Present) Name:Yousif Orellana Member ID:[id number] Relation to Subscriber:Self Name:Reyna Yousif Subscriber ID:[id number] Payer ID:[id number] Group ID:Not on file Type:Medicare Address: [facility] [employer] [facility]. [address] [facility] [place] [address] [place] MEDICARE PART A & B [place] [employer] Advance Directives For more information, please contact: [phone] (9AM - 5PM [facility], Saturday-Saturday) Documents on File Type Date Recorded Patient Oracle Soa Consultant Expl anation Healthcare Proxy 07/22/2024 3:40 [...] Agent (Proxy form on file) Care Teams Electronic Induction Hardener Relationship Specialty Start Date End Date Cj Meyer DO [address] [place] [address] PCP - General Internal Medicine 08/08/24 Dennis Temple MBBS [email or web address] Primary Oncologist Hematology and Oncology 04/02/23 Gabriela Barnhart CNP [address] [place] [address] [email or web address] Nurse Practitioner Medical Oncology 01/16/24 Additional Source Comments The information contained in this document represents components of the legal health record. It is not the complete legal health record.[facility]
--- OUTSIDE RECORDS SUMMARY | 2025-04-05 06:34 | XMS_ITS | Encounter Summary ---
Author Organization [facility] Address [address] [facility] [address] [place] [address] Phone Care Team Providers Care Optical Scientist Name Role Phone Marlene Harden NP Primary Care Provider Yue Rodrigez RN Unavailable Jennifer Dash COMPUTER APPLICATION DEVELOPER Unavailable felisa Yvonne Montana Unavailable Dennis Temple MBBS Unavailable [phone] Gabriela Barnhart MANAGER LAUNDRY Unavailable Cj Meyer DO Primary Care Provider [phone] Encounter Details Date Type Department Care Team (Late st Contact Info) Description 05/29/2022 Procedure Pass [facility] Cardiovascular And Interventional Radiology [address] [place] [address] Social History Tobacco Use Types Packs/Day Years [...] AM EST Appointment [facility] [address] [place] [address] Conner Sneed MD [address] [address] [email or web address] 05/14/2025 1:00 PM EST Office Visit [facility] [address] [facility] 3rd Floor, [address] [place] [address] Rehan Landaverde MD [address] [place] [address] 09/13/2025 9:30 AM EDT Office Visit [facility] Pulmonary, Allergy and Critical Care Medicine 10 [place] [address] Conner Sneed MD [address] [address] [email or web address] Scheduled Procedures Name Priority Associated Diagnoses Date/Ti me 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 IN FAMILY ENGAGEMENT SPECIALIST Systolic congestive heart failure, unspecified HF [...] as of this encounter Care Teams Optical Scientist Relationship Specialty Start Date End Date Marlene Harden NP [address] [place] [address] PCP - General Family Medicine 01/10/22 08/07/24 Cj Meyer DO [address] [place] [address] PCP - General Internal Medicine 08/08/24 Yue Rodrigez, VENKATA [address] [place] [address] [facility] Metal Drill Operator 02/21/22 06/09/23 Jennifer Dash LCSW [address] [place] [address] [email or web address] [facility] Social Work 02/01/23 02/11/23 Yvonne Montana [address] [place] [address] [email or web address] [facility] Community Health Worker 02/25/23 06/09/23 Dennis Temple MBBS [address] [place] [address] [email or web address] Primary Oncologist Hematology and Oncology 04/02/23 Gabriela Barnhart CNP [address] [place] [address] Nurse Practitioner Medical Oncology 01/16/24 documented as of this encounter Additional Source Comments The information contained in this document represents components of the legal health record. It is not the complete legal health record.[facility]
--- OUTSIDE RECORDS SUMMARY | 2025-04-05 06:34 | XMS_ITS | Encounter Summary ---
Author Organization [facility] Address [address] [place] [address] Phone Care Team Providers Care Deputy County Clerk Name Role Phone Dereck Marlene Mook TOUR SALES REPRESENTATIVE Primary Care Provider [phone] Dennis Temple MBBS Unavailable Gabriela Barnhart TECHNICAL ADMINISTRATIVE ASSISTANT Unavailable Cj Meyer DO Primary Care Provider Encounter Details Date Type Department Care Team (Late st Contact Info) Description 10/03/2023 Procedure Pass [facility], Ct Scan - [address] [address] Social History Tobacco Use Types Packs/Day Years [...] AM EST Appointment [facility] [address] [place] [address] Conner Sneed MD [address] [place] [address] [email or web address] 05/14/2025 1:00 PM EST Office Visit [facility] [address] [facility] 3rd Floor, [address] [place] [address] Rehan Landaverde MD [address] [place] [address] 09/13/2025 9:30 AM EDT Office Visit [facility] Pulmonary, Allergy and Critical Care Medicine 10 [place] [address] Conner Sneed MD [address] [place] [address] [email or web address] Scheduled Procedures Name Priority Associated Diagnoses Date/Ti me 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 IN AUDIO VISUAL DESIGN ENGINEER Systolic congestive heart failure, unspecified [...] documented as of this encounter Care Teams Deputy County Clerk Relationship Specialty Start Date End Date Marlene Harden NP [address] [place] [address] PCP - General Family Medicine 01/10/22 08/07/24 Cj Meyer DO [address] [place] [address] PCP - General Internal Medicine 08/08/24 Dennis Temple MBBS [address] [place] [address] [email or web address] Primary Oncologist Hematology and Oncology 04/02/23 Gabriela Barnhart CNP [address] [place] [address] [email or web address] Nurse Practitioner Medical Oncology 01/16/24 documented as of this encounter Additional Source Comments The information contained in this document represents components of the legal health record. It is not the complete legal health record.[facility]
--- OUTSIDE RECORDS SUMMARY | 2025-04-05 06:34 | XMS_ITS | Encounter Summary ---
Author Organization [facility] Address [address] [place] [address] Phone Care Team Providers Care Reject Opener And Filler Name Role Phone Marlene Harden NP Primary Care Provider Yue Rodrigez RN Unavailable Jennifer Dash GENETIC COUNSELLOR Unavailable felisa Yvonne Montana Unavailable Dennis Temple MBBS Unavailable [phone] Gabriela Barnhart DRIER TAKE OFF TENDER Unavailable Cj Meyer DO Primary Care Provider [phone] Encounter Details Date Type Department Care Team (Late st Contact Info) Description 03/15/2022 Procedure Pass [facility], Ct Scan - [address] [address] Social History Tobacco Use Types Packs/Day Years [...] AM EST Appointment [facility] [address] [place] [address] Conner Sneed MD [address] [address] [email or web address] 05/14/2025 1:00 PM EST Office Visit [facility] [address] [facility] 3rd Floor, [address] [place] [address] Rehan Lanadverde MD [address] [place] [address] 09/13/2025 9:30 AM EDT Office Visit [facility] Pulmonary, Allergy and Critical Care Medicine 10 [place] [address] Conner Sneed MD [address] [place] [phone] [email or web address] Scheduled Procedures Name Priority Associated Diagnoses Date/Ti me 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 IN PRINCIPAL CONSULTING ENGINEER Systolic congestive heart failure, unspecified HF [...] AM EST CoV-Risk Comment:Per note documentation 08/29/2024 08/29/2024202 5 7:27 AM EST Assessment Noted Time PHQ-2 Depression Total Score: 2 03/28/20 22 11:32 AM EDT documented as of this encounter Care Teams Reject Opener And Filler Relationship Specialty Start Date End Date Marlene Harden NP [address] [place] [address] PCP - General Family Medicine 01/10/22 08/07/24 Cj Meyer DO 70 [place] [address] PCP - General Internal Medicine 08/08/24 Yue Rodrigez, VENKATA [address] [place] [address] [facility] Education Dean 02/21/22 06/09/23 Jennifer Dash LCSW [address] [place] [address] [facility] Social Work 02/01/23 02/11/23 Yvonne Montana [address] [place] [phone] [email or web address] [facility] Community Health Worker 02/25/23 06/09/23 Dennis Temple MBBS [address] [place] [address] [email or web address] Primary Oncologist Hematology and Oncology 04/02/23 Gabriela Barnhart CNP [address] [place] [address] Nurse Practitioner Medical Oncology 01/16/24 documented as of this encounter Additional Source Comments The information contained in this document represents components of the legal health record. It is not the complete legal health record.[facility]
--- OUTSIDE RECORDS SUMMARY | 2025-04-05 06:34 | XMS_ITS | Encounter Summary ---
Author Organization [facility] Address [address] [facility] [address] [place] [address] Phone Care Team Providers Care Stitching Machine Operator Name Role Phone Marlene Harden NP Primary Care Provider [phone] Dennis Temple MBBS Unavailable Gabriela Barnhart DECK AND HULL ASSEMBLER Unavailable Cj Meyer DO Primary Care Provider [phone] Reason for Referral * MRI/CAT Scan - Closed Specialty Diagnoses / Procedures Referred By Contflorentin t Referred To Contact Radiology Diagnoses Cigarette smoker Procedures CT Chest Lung Cancer Screening Initial Or Annual Marlene Harden NP Phone: tel: Referral ID Status Reason Start Date Expiration Date Visits Re quested Visits Authorized [id number] Closed 10/03/2023 10/02/2024 1 1 Encounter Details Date Type Department Care Team (Latest Contact Info) Description 10/03/2023 Transcribe Orders Virtual Department 30 [place] [address] Marlene Harden NP [address] [place], [place] [id number] Cigarette smoker (Primary Dx) Social History Tobacco [...] AM EST Appointment [facility] 30 [place] [address] Conner Sneed MD [address] [address] [email or web address] 05/14/2025 1:00 PM EST Office Visit [facility] [address] [place] [address] 3rd Floor, [address] [place] [address] Rehan Landaverde MD [address] [place] [address] [email or web address] 09/13/2025 9:30 AM EDT Office Visit [facility] Pulmonary, Allergy and Critical Care Medicine [address] [facility] [address] [place] [address] Conner Sneed MD 10 [facility] 2nd [place] [address] [email or web address] Scheduled Procedures Name Priority Associated Diagnoses Date/Ti nh 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 IN ACTING SECTION CHIEF Systolic congestive heart failure, unspecified HF chronicity [...] clinician's provided indication for this examination in [facility]: Lung Cancer Screening - CURRENT [...] clinician's provided indication for this examination in [facility]:Lung Cancer Screening - CURRENT smoker [...] categories can be found at:[email or web address] Marlene Harden MONOMER PURIFICATION OPERATOR IMG CT CHEST Final Result documented in [...] documented as of this encounter Care Teams Stitching Machine Operator Relationship Specialty Start Date End Date Marlene Harden NP 70 [place] [address] PCP - General Family Medicine 01/10/22 08/07/24 Cj Meyer DO 70 [place] [address] PCP - General Internal Medicine 08/08/24 Dennis Temple MBBS 70 [place] [address] [email or web address] Primary Oncologist Hematology and Oncology 04/02/23 Gabriela Barnhart CNP [address] [place] [address] [email or web address] Nurse Practitioner Medical Oncology 01/16/24 documented as of this encounter Additional Source Comments The information contained in this document represents components of the legal health record. It is not the complete legal health record.[facility]
--- OUTSIDE RECORDS SUMMARY | 2025-04-05 06:34 | XMS_ITS | Encounter Summary ---
Author Organization [facility] Address [address] [facility] [address] [place] [address] Phone Care Team Providers Care Brake Drum Molder Name Role Phone Marlene Harden NP Primary Care Provider Yue Rodrigez RN Unavailable Jennifer Dash STEAM CONDITIONING OPERATOR Unavailable felisa Yvonne Montana Unavailable Dennis Temple MBBS Unavailable [phone] Gabriela Barnhart CHANNEL CEMENTER OUTSOLE MACHINE Unavailable Cj Meyer DO Primary Care Provider [phone] Encounter Details Date Type Department Care Team (Late st Contact Info) Description 06/21/2022 Procedure Pass [facility] Cardiovascular And Interventional Radiology [address] [place] [address] Social History Tobacco Use Types Packs/Day Years [...] AM EST Appointment [facility] [address] [place] [address] Conner Sneed MD [address] [address] [email or web address] 05/14/2025 1:00 PM EST Office Visit [facility] [address] [facility] 3rd Floor, [address] [place] [address] Rehan Landaverde MD [address] [place] [address] 09/13/2025 9:30 AM EDT Office Visit [facility] Pulmonary, Allergy and Critical Care Medicine 10 [place] [address] Conner Sneed MD [address] [address] [email or web address] Scheduled Procedures Name Priority Associated Diagnoses Date/Ti me 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 IN SURVEYOR CHAIN HELPER Systolic congestive heart failure, unspecified HF [...] documented as of this encounter Care Teams Brake Drum Molder Relationship Specialty Start Date End Date Marlene Harden NP 70 [place] [address] PCP - General Family Medicine 01/10/22 08/07/24 Cj Meyer DO 70 [place] [address] PCP - General Internal Medicine 08/08/24 Yue Rodrigez, VENKATA [address] [place] [address] [facility] Educational Resource Coordinator 02/21/22 06/09/23 Jennifer Dash LCSW [address] [place] [address] [email or web address] [facility] Social Work 02/01/23 02/11/23 Yvonne Montana [address] [place] [address] [email or web address] [facility] Community Health Worker 02/25/23 06/09/23 Dennis Temple MBBS [address] [place] [address] [email or web address] Primary Oncologist Hematology and Oncology 04/02/23 Gabriela Barnhart CNP [address] [place] [address] Nurse Practitioner Medical Oncology 01/16/24 documented as of this encounter Additional Source Comments The information contained in this document represents components of the legal health record. It is not the complete legal health record.[facility]
[2025-04-05 07:00] LABS: Hematocrit 34.1 % (42.0-52.0); Hemoglobin 10.8 g/dl (14.0-18.0); Imm Gran Abs Auto 0.43 X10*3/uL (0.00-0.03); Imm Gran Pct Auto 3.9 % (0.0-0.4); Lymphocytes Absolute Auto 2.6 X10*3/uL (1.2-4.9); Mean Corpuscular HGB Conc 31.7 g/dl (31.0-36.0); Mean Corpuscular Hemoglobin 25.8 pg (27.0-33.0); Mean Corpuscular Volume 81.6 fL (80.0-98.0); NRBC Abs Auto 0.000 X10*3/uL (0.0-0.012); NRBC Pct Auto 0.0 /100WBC (0.0-0.2); Platelet Count 332 X10*3/uL (160-400); Red Blood Count 4.18 X10*6/uL (4.60-5.80); White Blood Count 11.1 X10*3/uL (4.8-10.8)
[2025-04-05 07:22] LABS: Anion Gap 12 (12-20); Blood Urea Nitrogen 20 mg/dL (9-16); Calcium 9.3 mg/dL (8.4-10.2); Carbon Dioxide 30 mmol/L (22-29); Chloride 101 mmol/L (96-108); Estimated Glomerular Filt Rate 57; Potassium 5.4 mmol/L (3.3-5.1); Sodium 138 mmol/L (135-145)
== END 2025-04-05 06:27 | disposition home or self-care (01) ==
LOC: HO.MMNH1L 06:26
PROVIDERS: Visit Provider Family Medicine
DX: J96.21 Acute and chronic respiratory failure with hypoxia (principal); J44.1 Chronic obstructive pulmonary disease with (acute) exacerbation; E46 Unspecified protein-calorie malnutrition
CPT/HCPCS: 36415; 80048; 85025

== ENCOUNTER 2025-04-08 05:26 | Outpatient (REF) | payer MEDICARE, SELFPAY ==
--- OUTSIDE RECORDS SUMMARY | 2025-04-08 05:30 | XMS_ITS | Encounter Summary ---
Author Organization [facility] Address [address] [facility] [address] [place] [address] Phone Care Team Providers Care District Court Bailiff Name Role Phone Marlene Harden NP Primary Care Provider [phone] Yue Rodrigez RN Unavailable Jennifer Dash CHICK ROOM SUPERVISOR Unavailable felisa Yvonne Montana Unavailable [email or web address] Dennis Temple MBBS Unavailable [phone] Gabriela Barnhart PROJECTION PRINTER Unavailable Cj Meyer DO Primary Care Provider Encounter Details Date Type Department Care Team (Late st Contact Info) Description 06/21/2022 Procedure Pass [facility] Cardiovascular And Interventional Radiology 30 [place] [address] Social History Tobacco Use Types Packs/Day Years [...] AM EST Appointment [facility] 30 [place] [address] Conner Sneed MD [address] [address] [email or web address] 05/14/2025 1:00 PM EST Office Visit [facility] [address] [facility] 3rd Floor, [address] [place] [address] Rehan Landaverde MD [address] [place] [address] 09/13/2025 9:30 AM EDT Office Visit [facility] Pulmonary, Allergy and Critical Care Medicine 10 [place] [address] Conner Sneed MD [address] [address] [email or web address] Scheduled Procedures Name Priority Associated Diagnoses Date/Ti me 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 IN SAFETY INVESTIGATOR Systolic congestive heart failure, unspecified HF [...] documented as of this encounter Care Teams District Court Bailiff Relationship Specialty Start Date End Date Marlene Harden NP 70 [place] [address] PCP - General Family Medicine 01/10/22 08/07/24 Cj Meyer DO 70 [place] [address] PCP - General Internal Medicine 08/08/24 Yue Rodrigez, VENKATA [address] [place] [address] [facility] Belt Buckle Maker 02/21/22 06/09/23 Jennifer Dash LCSW [address] [place] [address] [email or web address] Social Work 02/01/23 02/11/23 Yvonne Montana [address] [place] [address] [email or web address] Community Health Worker 02/25/23 06/09/23 Dennis Temple MBBS [address] [place] [address] [email or web address] Primary Oncologist Hematology and Oncology 04/02/23 Gabriela Barnhart CNP [address] [place] [address] Nurse Practitioner Medical Oncology 01/16/24 documented as of this encounter Additional Source Comments The information contained in this document represents components of the legal health record. It is not the complete legal health record.[facility]
--- OUTSIDE RECORDS SUMMARY | 2025-04-08 05:30 | XMS_ITS | Data Portability ---
Author Organization [facility], Main Office Address [address] [facility] [address] [place] [address] Care Team Providers Care Pressure Vessel Inspector Name Role Phone DENISE GONZALEZ Primary Care Provider MARELY DE LEON 1ST FLOOR OTHER [phone] Assessment Encounter Date Assessment Date Assessment LastModified [...] Time Nontraumati c intraparenc hymal cerebral hemorrhage [id number] 03 Active 2024 Esa Rodrigues MD [address] [facility], [address], [place], [address], [facility] 5 11:08:30 Chronic obstructive pulmonary disease 41539068 Active 2024 Esa Rodrigues MD [address] [facility], [address], [place], [address], [facility] 5 11:08:49 Dysphagia 25932550 Active 2024 Eas Rodrigues MD [address], [address], [place], [address], [facility] 5 11:09:20 Atrial fibrillatio n 10383434 Active 2024 Esa Rodrigues MD [address], [address], [place], [address], [facility] 5 11:11:53 Coronary arterioscle rosis 52983699 Active 2024 Esa Rodrigues MD [address], [address], [place], [address], [facility] 5 11:11:58 Alcohol dependence 36642079 Active 2024 Esa Rodrigues MD [address], [address], [place], [address], [facility] 5 11:12:38 Tobacco user 986979029 Active 2024 Esa Rodrigues MD [address], [address], [place], [address], [facility] 5 11:12:43 Essential hypertensio n 71915031 Active 2024 Esa Rodrigues MD [address], [address], [place], [address], [facility] 5 11:12:48 Mixed hyperlipide micaela 468724250 Active 2024 Esa Rodrigues MD [address], [address], [place], [address], [facility] 5 11:12:56 Congestive heart failure 99580953 Active 2024 Esa Rodrigues MD [address], [address], [place], [address], [facility] 5 11:13:02 Chronic kidney disease stage 2 434292864 Active 2024 Letty Mehta MD [address], [address], [place], [address], [facility] 5 15:24:10 Pain of knee region 6577115530 Active 2024 Letty Mehta MD [address] [place] [address], [address], [place], [address], [facility] 5 15:30:14 Problem Notes None recorded. Medical Equipment None Reported. Allergies Allergen ID Allergen Name Allergen Category Reaction Reaction Severity Criticality Documentation Date Start Date Code Code System Note Provider Name and Address Organization Details Recorded Time 57929 Product containin g penicilli n (product) medicatio n Not available Not available Not available 08/14/2024 59306 8001 SNOMED Esa Rodrigues MD [address] [place] [address], [address], [place], [address], [facility] 5 11:22:28 50274 shellfish derived food,medi cation Not available Not available Not available 08/14/2024 Esa Rodrigues MD [address] [place] [address], [address], [place], [address], [facility] 5 11:22:49 94935 prednison e medicatio n Not available Not available Not available 01/21/20252019 8640 RxNorm Letty Mehta MD [address] [place] [address], [address], [place], [address], [facility] 5 16:10:02 49090 scallop allergeni c extract food Not available Not available Not available 01/21/20252013 59450 6 RxNorm Other react ion(s ): short ness of shemar Mehta MD [address] [place] [address], [address], [place], [address], [facility] 5 16:10:04 92477 penicilla mine medicatio n Not available Not available Not available 01/21/20252013 7975 RxNorm Other react ion(s ): short ness of shemar Mehta MD [address] [place] [address], [address], [place], [address], [facility] 5 16:19:26 Vitals Date Recorded Body weight Heart rate Respiratory rate Body temperature Oxygen saturation Oxygen saturation in Arterial blood by Pulse oximetry Inhaled oxygen flow rate Systolic And Diastolic Provider Name and Address Organization Details Last Updated DateTime 5 57360.1 9 g 70 /min 18 /min 98.1 [degF] 96 % 96 % 2 L/min 143/74 mm[Hg] KIAN RODRIGUEZ CNP [address] [facility], [address], [place], [address], [facility] 5 09:55:08 Date Recorded Body weight Heart rate Respiratory rate Body temperature Oxygen saturation Oxygen saturation in Arterial blood by Pulse oximetry Inhaled oxygen flow rate Systolic And Diastolic Provider Name and Address Organization Details Last Updated DateTime 5 60901.7 g 58 /min 18 /min 98.1 [degF] 94 % 94 % 2 L/min 110/63 mm[Hg] KIAN RODRIGUEZ CNP [address], [place], [address], [facility] 5 09:37:59 Date Recorded Systolic And Diastolic Provider Name and Address Organization Details Last Updated DateTime 11/09/2024 135/64 mm[Hg] [facility] [address], [place], [address], [facility] 11/09/2024 11:23:22 Date Recorded Heart rate Systolic And Diastolic Provider Name and Address Organization Details Last Updated DateTime 11/11/2024 87 /min 116/67 mm[Hg] KIAN RODRIGUEZ CNP [address], [place], [address], [facility] 11/11/2024 10:11:22 Date Recorded Body height Body mass index (BMI) Body weight Heart rate Respiratory rate Body temperature Oxygen saturation Oxygen saturation in Arterial blood by Pulse oximetry Inhaled oxygen flow rate Systolic And Diastolic Provider Name and Address Organization Details Last Updated DateTime 5 170.18 cm 33.4 kg/m2 88507.1 7 g 55 /min 18 /min 97.8 [degF] 98 % 98 % 2 L/min 139/77 mm[Hg] Letty Mehta MD [address] [facility], [address], [place], [address], [facility] 16:25:48 Social History Question Answer Notes LastModified by Organizat ion Details LastModified Time Tobacco Smoking Status Former Smoker Quit when admitted to rehab 08/2024 Letty Mehta MD [address] [facility] [facility], [address], [place], [place], [address], [facility] 01/21/2025 18:12:08 Do You Have An [...] Do You Have A Medical Power Of Hospice Community Liaison? Yes Not Invoked Information not available 01/21/2025 [...] Recorded Time Tdap 09/28/2016 completed Pattie Robbi [facility] 08/14/2024 16:05:11 SARS-COV-2 (COVID-19) vaccine, UNSPECIFIED 11/29/2020 completed Pattie Robbi [facility] 08/14/2024 16:05:29 Past Encounters Encounter ID Performer Location Encounter Start Date Encounter Closed Date Diagnosis/Indication Diagnosis SNOMED-CT Code Diagnosis ICD10 Code Diagnosis IMO Codes Diagnosis Note [id number] [place] [address] [address] 08/14/2024 10:59:15 08/17/2024 16:18:46 Nontraumatic intraparenchymal cerebral hemorrhage [id number] 21188 I61.8 see HPIrecentl y discharged from hospital [...] on 08/26 Chronic ob structive pulmonary disease 68317996 J44.1 restart qid duonebsmon itor respirator y statuscomp lete prednisone coursecoor dinate with respirator y at facilitypu lmonary eval prn Respirator y syncytial virus infection 05432187 B97.4 see above Asthenia 81150342 R53.1 PT OT eval and treatmonit or fall risk and need for increased support in community Dysphagia 60206278 I69.2 91 monitor aspiration risk and need to further adjust diet Atrial fibrillation 7919 6929 I48.0 Xarelto on hold due to aboveamiod arone 200 mg qdasa 81 mg qd through 08/26metopr olol 50 mg qdmonitor for rate control Coronary arteriosclerosis 07629547 I25.10 lipitor 40 mg qdmetoprol ol 50 mg qdmonitor for sx Alcohol dependence 83102 003 F10.20 added to PMHcontinu e thiaminemo nitor need for increased support in community Tobacco user 174667261 Z 72.0 added to PMHencou[facility] ge quittingco ntinue nicotine supplement Essential hypertension 86645182 I10 metoprolol 50 mg qdlasix 40 mg qdlisinopr il 10 mg qdentresto 24-26 mg bidmonitor bp and need titrate Mixed hyperlipidemia 267 074205 E78.2 lipitor 40 mg qdcontinue d Congestive heart failure 69399766 I50.22 EF=35%lasi x 40 mg qdentresto 24-26 mg bidmonitor respirator y and fluid status [id number] URIEL DELAROSA [address] [place] [address] 08/19/2024 13:34:52 08/20/2024 13:07:58 Nontraumatic intraparenchymal cerebral hemorrhage [id number] 60248 I61.8 continue ASA 08/05 through 08/26 with f/u neuro in place.Cont inued on dysphagia diet and continued on keppra 750 mg bid with plan to reassess ability to restart xarelto on 08/26neuros intact Chronic ob structive pulmonary disease 45948230 J44.1 continue duonebs QIDmonitor respirator y statuspulm nurse to followlung sounds still coarse Respirator y syncytial virus infection 47682237 B97.4 improving slowly [id number] URIEL DELAROSA [address] [place] [address] 08/24/2024 09:32:25 08/25/2024 12:01:07 Nontraumatic intraparenchymal cerebral hemorrhage 1081362478 04013 I61.8 continue ASA 08/05 through 08/26 with f/u neuro in place.Cont inued on dysphagia diet and continued on keppra 750 mg bid with plan to reassess ability to restart xarelto on 08/26 Chronic ob structive pulmonary disease 48503680 J44.1 continue duonebs QID Respirator y syncytial virus infection 90234648 B97.4 resolved Asthenia 56968835 R53.1 baselineVN A Outpt Atrial fibrillation 4943 6004 I48.0 Xarelto on hold due to aboveamiod arone 200 mg qdasa 81 mg qd through 08/26 then restart xareltomet oprolol 50 mg qd Coronary arteriosclerosis 36944841 I25.10 lipitor 40 mg qdmetoprol ol 50 mg qd Alcohol dependence 60007 003 F10.20 continue thiamine Tobacco user 889567729 Z 72.0 added to PMHenc[facility] ge quittingco ntinue nicotine supplement Essential hypertension 07885113 I10 metoprolol 50 mg qdlasix 40 mg qdlisinopr il 10 mg qdentresto 24-26 mg bid Mixed hyperlipidemia 267 894396 E78.2 lipitor 40 mg qd Congestive heart failure 90459219 I50.22 EF=35%lasi x 40 mg qdentresto 24-26 mg bid [id number] Esa [facility]ues [facility] [address] [place] [address] [place] [address] 09/02/2024 09:13:06 09/07/2024 15:57:48 Nontraumatic intraparenchymal cerebral hemorrhage 7520782075 12057 I61.8 see HPIrecentl y discharged from hospital for right Intraparen chymal hemorrhage with mild left hemiparesi s and dysarthria on dischargem aintained onxarelto 20 mg qdkeppra 1500 mg bidcoordin ate with neuro as needed Chronic ob structive pulmonary disease 67799935 J44.1 monitor neb utilizatio n and respirator y statusnow onpredniso ne 60 mg qdwill decrease by 10 mg q 5 days till at 10 mg then reassesspu lmonary eval prn Asthenia 85259290 R53.1 PT OT eval and treatmonit or fall risk and need for increased support in community Dysphagia 49170944 I69.2 91 monitor aspiration risk and need to further adjust diet Atrial fibrillation 4943 6004 I48.0 Xarelto 20 mg qdamiodaro ne 200 mg qdmetoprol ol 50 mg qdmonitor for rate control Coronary arteriosclerosis 03170182 I25.10 lipitor 40 mg qdmetoprol ol 50 mg qdmonitor for sx Alcohol dependence 25116 003 F10.20 added to PMHcontinu e thiaminemo nitor need for increased support in community Tobacco user 327952461 Z 72.0 added to PMHenc[place] ge quittingco ntinue nicotine supplement Essential hypertension 12126843 I10 metoprolol 50 mg qdnorvasc 5 mg qdlasix 40 mg qdentresto 24-26 mg bidmonitor bp and need titrate Mixed hyperlipidemia 267 009180 E78.2 lipitor 40 mg qdcontinue d Congestive heart failure 19998158 I50.22 EF=35%lasi x 40 mg qdentresto 24-26 mg bidmonitor respirator y and fluid status [id number] [place] SQUIRES [address] [address] 10/04/2024 10:50:42 10/27/2024 08:10:53 Chronic obstructive pulmonary disease 30162857 J44.1 stable O2 dependentm onitor respirator y statusCont prednisone 5mg qdpulmonar y eval prn Nontraumat ic intraparenchymal cerebral hemorrhage 9323685143 22433 I61.8 stablerece ntly discharged from hospital for right Intraparen chymal hemorrhage with mild left hemiparesi s and dysarthria on dischargem aintained onxarelto 20 mg qdkeppra 1500 mg bidcoordin ate with neuro as needed Atrial fibrillation 4943 6004 I48.0 HR controlled Xarelto 20 mg qdamiodaro ne 200 mg qdmetoprol ol 50 mg qdmonitor for rate control Coronary arteriosclerosis 03294701 I25.10 stablelipi tor 40 mg qdmetoprol ol 50 mg qdmonitor for sx Essential hypertension 00422467 I10 stablemeto prolol 50 mg qdnorvasc 5 mg qdlasix 40 mg qdentresto 24-26 mg bidmonitor bp and need titrate Congestive heart failure 10709765 I50.22 stable euvolemicE F=35%lasix 40 mg qdentresto 24-26 mg bidmonitor respirator y and fluid status [id number] KIAN RODRIGUEZ CNP [address] [address] 10/07/2024 08:46:35 10/09/2024 08:38:44 Chronic obstructive pulmonary disease 52187767 J44.1 now on prednisone 10 mg daily. Will taper down to 5 mg daily and will reassess.C ontinue neb QID.Contin ue monitor respirator y status.pul monary eval prn.Will check lab, CBC, CMP tomorrow. Nontraumat ic intraparenchymal cerebral hemorrhage 9388373559 51981 I61.8 see HPIrecentl y discharged from hospital for right Intraparen chymal hemorrhage with mild left hemiparesi s and dysarthria on discharge. Stable now.mainta ined onxarelto 20 mg qdkeppra 750 mg bidcoordin ate with neuro as needed Asthenia 79676142 R53.1 Improving. Continue PT OT, PRN eval and treatmonit or fall risk and need for increased support in community Dysphagia 09205450 I69.2 91 Resolved.I s currently is on regular diet, no coughing or chocking reported. Atrial fibrillation 4943 6004 I48.0 HR stable.Xar elto 20 mg qdamiodaro ne 200 mg qdmetoprol ol 50 mg qdmonitor for rate control Coronary arteriosclerosis 95615882 I25.10 lipitor 40 mg qdmetoprol ol 50 mg qdmonitor for sx Alcohol dependence 35035 003 F10.20 added to PMHcontinu e thiaminemo nitor need for increased support in community Tobacco user 859087099 Z 72.0 added to PMH[place] ge quittingco ntinue nicotine supplement Essential hypertension 31550798 I10 metoprolol 50 mg qdnorvasc 5 mg qdlasix 40 mg qdentresto 24-26 mg bidmonitor bp and need titrate Mixed hyperlipidemia 267 478938 E78.2 lipitor 40 mg qdcontinue d Congestive heart failure 91270502 I50.22 EF=35%Pt is euvolemic, but gained 14 lb over a month.? volume overload or due to high dose of prednisone .continuel asix 40 mg qdentresto 24-26 mg bidmonitor respirator y and fluid statuswill monitor wt weekly.Sabas thibodeaux check labs tomorrow. [id number] KIAN RODRIGUEZ CNP [facility] [address] [place] [address] [place] [address] 10/14/2024 09:50:34 10/21/2024 11:35:43 Chronic obstructive pulmonary disease 59564295 J44.1 now on prednisone 5 mg daily, Will taper down to 2.5 mg daily and will reassess.w bc trending down.Keiry nue neb.Contin ue monitor respirator y status.pul monary eval prn.Will check lab weekly. Nontraumat ic intraparenchymal cerebral hemorrhage 2760190309 75006 I61.8 see HPIrecentl y discharged from hospital for right Intraparen chymal hemorrhage with mild left hemiparesi s and dysarthria on discharge. Stable now.mainta ined onxarelto 20 mg qdkeppra 750 mg bidcoordin ate with neuro as needed Asthenia 13390378 R53.1 Improving. Continue PT OT, PRN eval and treatmonit or fall risk and need for increased support in community Dysphagia 29984394 I69.2 91 Resolved.I s currently is on regular diet, no coughing or chocking reported. Atrial fibrillation 4943 6004 I48.0 HR stable.Xar elto 20 mg qdamiodaro ne 200 mg qdmetoprol ol 50 mg qdmonitor for rate control Coronary arteriosclerosis 03321980 I25.10 lipitor 40 mg qdmetoprol ol 50 mg qdmonitor for sx Alcohol dependence 53113 003 F10.20 added to PMHcontinu e thiaminemo nitor need for increased support in community Tobacco user 429622070 Z 72.0 added to PMHenc[place] ge quittingco ntinue nicotine supplement Essential hypertension 37649800 I10 BP stable.met oprolol 50 mg qdnorvasc 5 mg qdlasix 40 mg qdentresto 24-26 mg bidmonitor bp and need titrate Mixed hyperlipidemia 267 830570 E78.2 lipitor 40 mg qdcontinue d Congestive heart failure 55381729 I50.22 EF=35%Pt is euvolemic, but gained 14 lb over a month.? volume overload or due to high dose of prednisone .continuel asix 40 mg qdentresto 24-26 mg bidmonitor respirator y and fluid statuswill monitor wt weekly.Sabas l check labs tomorrow. [id number] KIAN RODRIGUEZ, MEDARDO YAP HALEY [address] [facility] [place] [address] 10/21/2024 09:10:50 10/27/2024 08:23:45 Chronic obstructive pulmonary disease 00906814 J44.1 Stable, no exacerbati on noted.Pred nisone tapered down to 2.5 mg now, and will tapered to 1 mg daily for 5 days and then stop.wbc trending down.will change neb treatment as PRN.Contin ue monitor respirator y status.pul monary eval prn.Will check lab weekly. Nontraumat ic intraparenchymal cerebral hemorrhage 4395937245 43182 I61.8 see HPIrecentl y discharged from hospital for right Intraparen chymal hemorrhage with mild left hemiparesi s and dysarthria on discharge. Stable now.mainta ined onxarelto 20 mg qdkeppra 750 mg bidcoordin ate with neuro as needed Asthenia 52894890 R53.1 Improving. Continue PT OT, PRN eval and treatmonit or fall risk and need for increased support in community Dysphagia 61302302 I69.2 91 Resolved.I s currently is on regular diet, no coughing or chocking reported. Atrial fibrillation 4943 6004 I48.0 HR stable.Xar elto 20 mg qdamiodaro ne 200 mg qdmetoprol ol 50 mg qdmonitor for rate control Coronary arteriosclerosis 54568365 I25.10 lipitor 40 mg qdmetoprol ol 50 mg qdmonitor for sx Alcohol dependence 80495 003 F10.20 added to PMHcontinu e thiaminemo nitor need for increased support in community Tobacco user 405032066 Z 72.0 added to PMHenc[place]ra ge quittingco ntinue nicotine supplement Essential hypertension 44622503 I10 BP stable.met oprolol 50 mg qdnorvasc 5 mg qdlasix 40 mg qdentresto 24-26 mg bidmonitor bp and need titrate Mixed hyperlipidemia 267 019793 E78.2 lipitor 40 mg qdcontinue d Congestive heart failure 20479024 I50.22 EF=35%Pt is euvolemic, but gained 14 lb over a month.? volume overload or due to high dose of prednisone .continuel asix 40 mg qdentresto 24-26 mg bidmonitor respirator y and fluid statuswill monitor wt weekly.Sabas l check labs tomorrow. [id number] KIAN RODRIGUEZ, MEDARDO [address] [place] [address] 10/28/2024 09:19:53 11/03/2024 11:20:44 Chronic obstructive pulmonary disease 97665880 J44.1 Stable, no exacerbati on noted.Pred nisone tapered down and completed yesterday. wbc trending down.He has been using neb treatment as PRN.Contin ue monitor respirator y status.ref er to pulmonary for evalWill check lab weekly. Nontraumat ic intraparenchymal cerebral hemorrhage 1327354539 27171 I61.8 see HPIrecentl y discharged from hospital for right Intraparen chymal hemorrhage with mild left hemiparesi s and dysarthria on discharge. Stable now.mainta ined onxarelto 20 mg qdkeppra 750 mg bidcoordin ate with neuro as needed Asthenia 79506502 R53.1 Improving. Continue PT OT, PRN eval and treatmonit or fall risk and need for increased support in community Atrial fibrillation 4943 6004 I48.0 HR stable.Xar elto 20 mg qdamiodaro ne 200 mg qdmetoprol ol 50 mg qdmonitor for rate control Coronary arteriosclerosis 29490952 I25.10 lipitor 40 mg qdmetoprol ol 50 mg qdmonitor for sx Alcohol dependence 34272 003 F10.20 added to PMHcontinu e thiaminemo nitor need for increased support in community Tobacco user 875863233 Z 72.0 added to PMHencoura ge quittingco ntinue nicotine supplement Essential hypertension 55035804 I10 BP stable.met oprolol 50 mg qdnorvasc 5 mg qdlasix 40 mg qdentresto 24-26 mg bidmonitor bp and need titrate Mixed hyperlipidemia 267 995321 E78.2 lipitor 40 mg qdcontinue d Congestive heart failure 59126822 I50.22 EF=35%Pt is euvolemic, but gained 14 lb over a month.? volume overload or due to high dose of prednisone .continuel asix 40 mg qdentresto 24-26 mg bidmonitor respirator y and fluid statuswill monitor wt weekly.Sabas carlos eduardo check labs tomorrow. [id number] KIAN RODRIGUEZ, MEDARDO [place] [address] [facility] [place] [address] 11/04/2024 09:35:19 11/06/2024 14:11:01 Chronic obstructive pulmonary disease 40141045 J44.1 Stable, no exacerbati on noted.Pred nisone tapered down and completed last week.wbc trending down.He has been using neb treatment as PRN.Contin ue monitor respirator y status.pul monary evaluation scheduled. Will check lab weekly. Nontraumat ic intraparenchymal cerebral hemorrhage 1912050716 14123 I61.8 see HPIrecentl y discharged from hospital for right Intraparen chymal hemorrhage with mild left hemiparesi s and dysarthria on discharge. Stable now.mainta ined onxarelto 20 mg qdkeppra 750 mg bidcoordin ate with neuro as needed Asthenia 65451938 R53.1 Improving. Continue PT OT, PRN eval and treatmonit or fall risk and need for increased support in community Atrial fibrillation 4943 6004 I48.0 HR stable.Xar elto 20 mg qdamiodaro ne 200 mg qdmetoprol ol 50 mg qdmonitor for rate control Coronary arteriosclerosis 68146370 I25.10 lipitor 40 mg qdmetoprol ol 50 mg qdmonitor for sx Alcohol dependence 31246 003 F10.20 added to PMHcontinu e thiaminemo nitor need for increased support in community Tobacco user 477405260 Z 72.0 added to PMHencoura ge quittingco ntinue nicotine supplement Essential hypertension 52943620 I10 BP stable.met oprolol 50 mg qdnorvasc 5 mg qdlasix 40 mg qdentresto 24-26 mg bidmonitor bp and need titrate Mixed hyperlipidemia 267 512237 E78.2 lipitor 40 mg qdcontinue d Congestive heart failure 21012567 I50.22 EF=35%Pt is euvolemic, but gained 14 lb over a month.? volume overload or due to high dose of prednisone .continuel asix 40 mg qdentresto 24-26 mg bidmonitor respirator y and fluid statuswill monitor wt weekly.car diology f/u scheduled today. [id number] MD MARELY Vides HALEY [address] [place] [address] rd [place] [address] 11/09/2024 11:22:44 11/11/2024 14:10:04 Acute kidney injury 83609438 N17.8 81361 see HPI question due to diuresisno w metolazone has been discontinu eddischarg ed on torsemide 20 mg with frequency to be confirmed with hospital - monitor need to increase to BIDwill change to q day and monitor weightsdis cussed with nursing Normocytic anemia 222680 002 D64.9 18311 acute on chronic anemianow on iron 325 mg m/w/fto f/u with GI out patient with no bleeding source foundhx need for iron infusionmo nitor cbcheme eval prnof note remains on xarelto Congestive heart failure 87197331 I50.22 now ontorsemid e 20 mg qdentresto 24-26 mg bidmonitor respirator y and fluid statusupda te cards with concerns Chronic ob structive pulmonary disease 81706086 J44.1 recent need for prednisone utilizatio nmonitor respirator y statuspulm onary eval prn Nontraumat ic intraparenchymal cerebral hemorrhage 4622061208 67694 I61.8 prior right Intraparen chymal hemorrhage with mild left hemiparesi s and dysarthria on dischargem aintained onxarelto 20 mg qdkeppra 750 mg bidcoordin ate with neuro as needed Asthenia 08573930 R53.1 PT OT eval and treatmonit or fall risk and need for increased support in community Dysphagia 59125961 I69.2 91 monitor aspiration risk and need to further adjust diet Atrial fibrillation 4943 6004 I48.0 Xarelto 20 mg qdamiodaro ne 200 mg qdmetoprol ol 12.5 mg qdmonitor for rate control Coronary arteriosclerosis 35091103 I25.10 lipitor 40 mg qdmetoprol ol 12.5 mg qdmonitor for sx Essential hypertension 23316132 I10 see HPI with changes now onmetoprol ol 12.5 mg qdtorsemid e 20 mg qd - pending [facility] tresto 24-26 mg bidmonitor bp and need titrate Mixed hyperlipidemia 267 752681 E78.2 lipitor 40 mg qdcontinue d [id number] MD [place] [address] [place] [address] rd [place] [address] 01/21/2025 16:09:29 01/26/2025 10:38:08 Congestive heart failure 92304195 I50.22 Resp sxs and edema at baseline per pt.Continu e torsemide 20 mg qd, metoprolol 12.5 mg qd, and entresto 24/26 mg BID.Monito r resp. status, fluid status, wts and labs.F/U with cardio as planned and prn. Chronic ob structive pulmonary disease 40690133 J44.1 With some exp wheezing today, pt says baseline.C ontinue Trelegy 200/62.5/2 5 mcg qd, roflumilas t 500 mcg qd, albuterol MDI 2 puffs q 6 hrs prn, and duonebs q 6 hrs prn.Monito r resp status.F/U with pulmonary in 03/2025 as planned. Nontraumat ic intraparenchymal cerebral hemorrhage [id number] 97530 I61.8 In hx.On seizure prophylaxi s with keppra 750 mg BID.Monito r for new neuro changes and seizure activity. Asthenia [id number] R53.1 Is back to baseline.R estart PT/OT prn Atrial fibrillation 4943 6004 I48.0 Rate in good control on meds as above and amiodarone 200 mg qd.Continu e Xarelto 20 mg qd for AC.Monitor HR and bleeding risk.Will be able to d/c Xarelto after Watchman procedure. Coronary arteriosclerosis [id number] I25.10 No recent chest pain.Keiry nue meds as above and atorvastat in 40 mg qdNo plans for revascular ization.Mo nitor for sxs.F/U with cardio. Essential hypertension 83194030 I10 Adequate control on meds as above.Lexie tor BP and labs. Chronic ki dney disease stage 2 [id number] N18.2 [id number] Renal function stable.Bal ancing act between CHF and CKD.Titrat e diuretics as needed.Mon itor labs. Pain of knee region 1003 294616 M25.561 M25.562 G89.29 [id number] Pt says that knee pain interferes in functionin g more than resp sxs.He has had steroid injections with in house physiatris t with very short term relief. Physiatris t has suggested gel shots as outpt.Cont inue APAP 650 mg q 6 hrs prn and Percocet 325/5 mg q 6 hrs prn.Consul t PSSP for ? Effluxa shots.Forg ot to discuss lidocaine patches. Anemia [id number] D64.89 [id number] Stable.No cause found.Cont inue FeSO4 324 mg [...] Member ID Guarantor Name 01/21/2025 2 [place] [facility] Dwaine Orellana [id number] Dwaine Orellana 01/21/2025 1 [place]ICARE B[place]: [facility] Dwaine Orellana [id number] Dwaine Orellana Notes Date Note Type Note [...] htn, hld, chf EF=35%, copd. KIAN RODRIGUEZ, FARM MANAGEMENT SUPERVISOR [address] [facility], [address], [place], [address], [facility] - [facility] 10/21/2024 10:05:50 5 text/html ROS as noted [...] htn, hld, chf EF=35%, copd. KIAN RODRIGUEZ, FARM MANAGEMENT SUPERVISOR [address], [address], [place], [address], [facility] [facility] 10/28/2024 10:41:17 5 text/html ROS as noted [...] chf EF=35%, copd. KIAN RODRIGUEZ CNP [address], [address], [place], [address], [facility] 11/04/2024 10:05:56 5 text/html Patient is [...] maintained on xarelto Esa Rodrigues MD [address], [address], [place], [address], [facility] 11/09/2024 11:52:00 5 text/html This is a complicated 59 yo man with COPD on home O2, who I am seeing today for a delayed 90 day routine visit and in anticipation of transition to new medical team.He has been here since 09/01/24 with one rehospitalization from 11/04-11/07. [facility] with hx of seizure activity and resp distress requiring intubation. It is unclear whether this was a true seizure vs encephalopathy secondary to hypercarbic respiratory failure .He wasd/c homewith BiPAP ordered. [facility] with left sided weakness and being found to have 3.4 x 1.8 cm acute intraparenchymal hemorrhage involving the right lentiform nucleus with mild adjacent mass effect At [facility] MRI brain with and without contrast did [...] He wasd/c home with VNA 08[facility].D/C home for outpt f/u. [facility] with worsening left sided weakness. Found to have Right lentiform nucleus evolving parenchymal hematoma with slightly decreased hyperdense components, and slightly increased surrounding edema. Leftward midline shift by 3 to 4 mm, slightly worse. Course complicated by +RSV.D/C to [facility], where he did well and wasd/c home on 08/25. [facility]. He was tx[facility] with [...] however, shared decision to send patient to [facility] ED for evaluation/treatment to monitor closely due to above-stated signs/symptoms and hypotension. Transferred to [facility] ED. Per d/c summary:Hypotension-Prese nted hypotensive from [...] anemia all contributing to this symptom.-labs from snf 11 down to 7s, now in 8s, may be some hemoconcentration but steady overnight, no active bleeding noted.- noted 1 previous episode of unexplained severe anemia down to a hemoglobin of 5 in February 2023 after extensive evaluation with endoscopies and VCE no source was found anemia. During this stay his iron levels were low. At one point he was following with the [facility] at [facility] for iron infusions. He was given [...] 70% general good cardiac function-gaining wt at snf and seemed to be overdiuresed in recent [...] transitioned to private pay.He is looking into [facility] as rest homes do not accept people [...] and hx of AUD. Letty Mehta MD [address] [place] [address], [address], [place], [address], [facility] - [facility] 01/23/2025 15:32:06
--- OUTSIDE RECORDS SUMMARY | 2025-04-08 05:30 | XMS_ITS | Encounter Summary ---
Author Organization [facility] Address [address] [facility] [address] [place] [address] Phone Care Team Providers Care Relationship Assoc Name Role Phone Marlene Harden NP Primary Care Provider [phone] Yue Rodrigez RN Unavailable Yvonne Montana Unavailable [email or web address] Dennis Temple MBBS Unavailable [phone] Gabriela Barnhart MEDICAL DEVICE SALES Unavailable Cj Meyer DO Primary Care Provider Encounter Details Date Type Department Care Team (Late st Contact Info) Description 02/22/2023 Procedure Pass [facility] Endoscopy Admitting Dept Virtual Department 30 [place] [address] Social History Tobacco Use Types Packs/Day Years [...] AM EST Appointment [facility] PFT Lab 30 [place] [address] Conner Sneed MD [address] [place] [address] [email or web address] 05/14/2025 1:00 PM EST Office Visit [facility] [address] [facility] 3rd Floor, [address] [place] [address] Rehan Landaverde MD 50 [place] [address] 09/13/2025 9:30 AM EDT Office Visit [facility] All[facility] Critical [facility] Medicine 10 [place] [address] Conner Sneed MD [address] [place] [address] [email or web address] Scheduled Procedures Name Priority Associated Diagnoses Date/Ti me 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 IN SOUND TECHNICIAN SUPERVISOR Systolic congestive heart failure, unspecified HF [...] documented as of this encounter Care Teams Relationship Assoc Relationship Specialty Start Date End Date Marlene Harden NP [address] [place] [address] PCP - General Family Medicine 01/10/22 08/07/24 Cj Meyer DO 70 [place] [address] PCP - General Internal Medicine 08/08/24 Yue Rodrigez RN [address] [place] [address] [email or web address] Commissioner Of Internal Revenue 02/21/22 06/09/23 Yvonne Montana 10 [place] [address] [facility] Community Health Worker 02/25/23 06/09/23 Dennis Temple MBBS [address] [place] [address] [email or web address] Primary Oncologist Hematology and Oncology 04/02/23 Gabriela Barnhart CNP [address] [place] [address] Nurse Practitioner Medical Oncology 01/16/24 documented as of this encounter Additional Source Comments The information contained in this document represents components of the legal health record. It is not the complete legal health record.[facility]
--- OUTSIDE RECORDS SUMMARY | 2025-04-08 05:30 | XMS_ITS | Encounter Summary ---
Author Organization [facility] Address [address] [place] [address] Phone Care Team Providers Care Resist Coater Developer Name Role Phone Dereck Marlene Mook CUT ORDER HAND Primary Care Provider Dennis Temple MBBS Unavailable Gabriela Barnhart FEED WEIGHER Unavailable Cj Meyer DO Primary Care Provider Encounter Details Date Type Department Care Team (Late st Contact Info) Description 10/03/2023 Procedure Pass [facility], Ct Scan - [address] [address] Social History Tobacco Use Types Packs/Day Years [...] AM EST Appointment [facility] PFT Lab 30 [place] [address] Conner Sneed MD [address] [place] [address] [email or web address] 05/14/2025 1:00 PM EST Office Visit [facility] [address] [facility] 3rd Floor, [address] [place] [address] Rehan Landaverde MD [address] [place] [address] 09/13/2025 9:30 AM EDT Office Visit [facility] 10 [place] [address] Conner Sneed MD [address] [place] [address] [email or web address] Scheduled Procedures Name Priority Associated Diagnoses Date/Ti me 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 IN BUSINESS UNIT CONTROLLER Systolic congestive heart failure, unspecified HF chronicity [...] documented as of this encounter Care Teams Resist Coater Developer Relationship Specialty Start Date End Date Marlene Harden NP 70 [place] [address] PCP - General Family Medicine 01/10/22 08/07/24 Cj Meyer DO 70 [place] [address] PCP - General Internal Medicine 08/08/24 Dennis Temple MBBS [address] [place] [address] [email or web address] Primary Oncologist Hematology and Oncology 04/02/23 Gabriela Barnhart CNP [address] [place] [address] [email or web address] Nurse Practitioner Medical Oncology 01/16/24 documented as of this encounter Additional Source Comments The information contained in this document represents components of the legal health record. It is not the complete legal health record.[facility]
--- OUTSIDE RECORDS SUMMARY | 2025-04-08 05:30 | XMS_ITS | Encounter Summary ---
Author Organization [facility] Address [address] [place] [address] Phone Care Team Providers Care Hard Metals Engraver Hand Name Role Phone Dereck Marlene Delvalle PAPER STEAMER Primary Care Provider [phone] Dennis Temple MBBS Unavailable [phone] Gabriela Barnhart CANNED FOOD RECONDITIONING INSPECTOR Unavailable Cj Meyer DO Primary Care Provider [phone] Encounter Details Date Type Department Care Team (Late st Contact Info) Description 07/18/2024 Procedure Pass [facility], [address] [address] Social History Tobacco Use Types Packs/Day Years [...] AM EST Appointment [facility]FT Lab 30 [place] [address] Conner Sneed MD [address] [place] [address] [email or web address] 05/14/2025 1:00 PM EST Office Visit [facility] [address] 3rd Floor, [address] [place] [address] Rehan Landaverde MD 50 [place] [address] 09/13/2025 9:30 AM EDT Office Visit [facility] 10 [facility] [place] [address] Conner Sneed MD [address] [facility] 2nd [place] [address] [email or web address] Scheduled Procedures Name Priority Associated Diagnoses Date/Ti me 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 IN FARM WORKER Systolic congestive heart failure, unspecified HF [...] documented as of this encounter Care Teams Hard Metals Engraver Hand Relationship Specialty Start Date End Date Marlene Harden NP 70 [place] [address] PCP - General Family Medicine 01/10/22 08/07/24 Cj Meyer DO 70 [place] [address] PCP - General Internal Medicine 08/08/24 Dennis Temple MBBS [address] [place] [address] [email or web address] Primary Oncologist Hematology and Oncology 04/02/23 Gabriela Barnhart CNP [address] [place] [address] [email or web address] Nurse Practitioner Medical Oncology 01/16/24 documented as of this encounter Additional Source Comments The information contained in this document represents components of the legal health record. It is not the complete legal health record.[facility]
--- OUTSIDE RECORDS SUMMARY | 2025-04-08 05:30 | XMS_ITS | Encounter Summary ---
Author Organization [facility] Address [address] [place] [address] Phone Care Team Providers Care Body Rolling Machine Tender Name Role Phone Cassie Hardensy Mook IT TRAINING SPECIALIST Primary Care Provider Yue Rodrigez RN Unavailable Jennifer Dash BENCH JEWELER Unavailable felisa Yvonne Montana Unavailable Dennis Temple MBBS Unavailable [phone] Gabriela Barnhart METAL BUILDING ASSEMBLER Unavailable Cj Meyer DO Primary Care Provider [phone] Encounter Details Date Type Department Care Team (Late st Contact Info) Description 12/13/2022 Procedure Pass [facility], Ct Scan - [address] [address] Social History Tobacco Use Types Packs/Day Years [...] AM EST Appointment [facility] PFT Lab 30 [place] [address] Conner Sneed MD [address] [place] [address] [email or web address] 05/14/2025 1:00 PM EST Office Visit [facility] [address] [facility] 3rd Floor, [address] [place] [address] Rehan Landaverde MD [address] [place] [address] 09/13/2025 9:30 AM EDT Office Visit [facility] 10 [place] [address] Conner Sneed MD [address] [place] [address] [email or web address] Scheduled Procedures Name Priority Associated Diagnoses Date/Ti me 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 IN SENIOR ADVOCATE Systolic congestive heart failure, unspecified HF chronicity [...] documented as of this encounter Care Teams Body Rolling Machine Tender Relationship Specialty Start Date End Date Marlene Harden NP 70 [place] [address] PCP - General Family Medicine 01/10/22 08/07/24 Cj Meyer DO 70 [place] [address] PCP - General Internal Medicine 08/08/24 Yue Rodrigez, VENKATA [address] [place] [address] [facility] A&P Mechanic 02/21/22 06/09/23 Jennifer Dash LCSW [address] [place] [address] [facility] Social Work 02/01/23 02/11/23 Yvonne Montana [address] [place] [address] [facility] Community Health Worker 02/25/23 06/09/23 Dennis Temple MBBS [address] [place] [address] [email or web address] [email or web address] Primary Oncologist Hematology and Oncology 04/02/23 Gabriela Barnhart CNP 30 [place] [address] (work) [email or web address] Nurse Practitioner Medical Oncology 01/16/24 documented as of this encounter Additional Source Comments The information contained in this document represents components of the legal health record. It is not the complete legal health record.[facility]
--- OUTSIDE RECORDS SUMMARY | 2025-04-08 05:30 | XMS_ITS | Encounter Summary ---
Author Organization [facility] Address [address] [facility] [address] [place] [address] Phone Care Team Providers Care Core Cutter And Reamer Name Role Phone Olegario Guy MD Primary Care Provider Marlene Harden AUTOMOTIVE SALES MANAGER Primary Care Provider Yue Rodrigez RN Unavailable Jennifer Dash ENGINEERING SUPPLIES SALES Unavailable [email or web address] Yvonne Montana Unavailable Dennis Temple MBBS Unavailable Gabriela Barnhart MIDWIFE AND BIRTH CENTER OWNER Unavailable Cj Meyer DO Primary Care Provider Encounter Details Date Type Department Care Team (Latest Contact Info) Description 11/25/2019 Transcribe Orders Virtual Department 30 [place] [address] Marlene Harden, AUTOMOTIVE SALES MANAGER [address] [place], [place] [phone] Atypical chest pain (Primary Dx) Social History [...] AM EST Appointment [facility]FT Lab 30 [place] [address] Conner Sneed MD [address] [address] [email or web address] 05/14/2025 1:00 PM EST Office Visit [facility] [address] [facility] [address] [facility], [address] [place] [address] Rehan Landaverde MD 50 [place] [address] 09/13/2025 9:30 AM EDT Office Visit [facility] 10 [facility] [place] [address] Conner Sneed MD [address] [address] [email or web address] Scheduled Procedures Name Priority Associated Diagnoses Date/Ti me 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 IN INSTRUCTIONAL SYSTEMS DESIGNER Systolic congestive heart failure, unspecified HF chronicity [...] documented as of this encounter Care Teams Core Cutter And Reamer Relationship Specialty Start Date End Date Olegario Guy MD [address] [facility] [address] [place] [address] [email or web address] PCP - General Family Medicine 03/28/20 01/09/22 Marlene Harden NP [address] [place] [address] PCP - General Family Medicine 01/10/22 08/07/24 Cj Meyer DO [address] [place] [address] PCP - General Internal Medicine 08/08/24 Yue Rodrigez RN [address] [place] [address] [email or web address] [facility] Cigar Head Pegger 02/21/22 06/09/23 Jennifer Dash LCSW [address] [place] [address] [email or web address] [facility] Social Work 02/01/23 02/11/23 Yvonne Montana [address] [place] [address] [email or web address] [facility] Community Health Worker 02/25/23 06/09/23 Dennis Temple MBBS [address] [place] [address] [email or web address] Primary Oncologist Hematology and Oncology 04/02/23 Gabriela Barnhart CNP [address] [place] [address] [email or web address] Nurse Practitioner Medical Oncology 01/16/24 documented as of this encounter Additional Source Comments The information contained in this document represents components of the legal health record. It is not the complete legal health record.[facility]
--- OUTSIDE RECORDS SUMMARY | 2025-04-08 05:30 | XMS_ITS | Encounter Summary ---
Author Organization [facility] Address [address] [place] [address] Phone Care Team Providers Care Real Estate Intern Name Role Phone WindyAlexanderstu Mccann MBBS Unavailable Pack, Gabriela ENTRY LEVEL ACCOUNT REPRESENTATIVE Unavailable Cj Meyer DO Primary Care Provider [phone] Encounter Details Date Type Department Care Team (Late st Contact Info) Description 08/08/2024 Procedure Pass [facility], Ct Scan - [facility] 30 [place] [address] Social History Tobacco Use Types Packs/Day Years [...] 3:25 PM Maria E Timmons RN * [place]pson Suicide Severity Rating Scale (Screener/Recent Self-Report) Question Answer Date of Assessment Author 1. Wish to be (Past 1 Month) No 025 3:25 PM EST Maria E Lin, VENKATA 2. Non-Specific Active Suici meghan Thoughts (Past 1 Month) No 08/08/2024 3:25 PM EST Galindo Lin, RN 6. Suicidal Behavior (Lifetime) No 3:25 PM EST Maria E Lin, VENKATA documented as of this encounter Plan of Treatment Upcoming Encounters Date Type Department Care Team (Late st Contact Info) Description 05/13/2025 9:30 AM EST Appointment [facility] PFT Lab 30 [place] [address] Conner Sneed MD [address] [place] [address] [email or web address] 05/14/2025 1:00 PM EST Office Visit [facility] [address] [place] [address] 3rd Floor, [address] [place] [address] Rehan Landaverde MD 50 [place] [address] 09/13/2025 9:30 AM EDT Office Visit [facility] 10 [place] [address] Conner Sneed MD [address] [place] [address] [email or web address] Scheduled Procedures Name Priority Associated Diagnoses Date/Ti me 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 IN ADJUSTER Systolic congestive heart failure, unspecified HF chronicity [...] documented as of this encounter Care Teams Real Estate Intern Relationship Specialty Start Date End Date Betsy Cj [address] [place] [address] PCP - General Internal Medicine 08/08/24 Dennis Temple MBBS [email or web address] Primary Oncologist Hematology and Oncology 04/02/23 Gabriela Barnhart CNP [address] [place] [address] [email or web address] Nurse Practitioner Medical Oncology 01/16/24 documented as of this encounter Additional Source Comments The information contained in this document represents components of the legal health record. It is not the complete legal health record.[facility]
--- OUTSIDE RECORDS SUMMARY | 2025-04-08 05:30 | XMS_ITS | Encounter Summary ---
Author Organization [facility] Address [address] [facility] [address] [place] [address] Phone Care Team Providers Care Digital Performance Analyst Name Role Phone Olegario Guy MD Primary Care Provider [phone] Marlene Harden NP Primary Care Provider [phone] Yue Rodrigez RN Unavailable Jennifer Dash TAIL DOGGER Unavailable [email or web address] Yvonne [place] Unavailable Dennis Temple MBBS Unavailable Gabriela Barnhart WEBSITE PROJECT MANAGER Unavailable Cj Meyer DO Primary Care Provider [phone] Reason for Referral * MRI/CAT Scan - Closed Specialty Diagnoses / Procedures Referred By Contac t Referred To Contact Radiology Diagnoses Cervical radiculopathy Procedures MRI Cervical Spine Jie Wu NP Phone: tel: fax: mailto:[email or web address] Referral ID Status Reason Start Date Expiration Date Visits Re quested Visits Authorized [id number] Closed 03/21/2020 04/04/2020 1 1 Encounter Details Date Type Department Care Team (Latest Contact Info) Description 03/28/2020 Transcribe Orders [address] [address] Jie Wu NP [address] [place] [address] [email or web address] Cervical radiculopathy (Primary Dx) Social History Tobacco [...] AM EST Appointment [facility] 30 [place] [address] Conner Sneed MD [address] [place] [address] [email or web address] 05/14/2025 1:00 PM EST Office Visit [facility] [address] [facility] 3rd Floor, [address] [place] [address] Rehan Landaverde MD 50 [place] [address] 09/13/2025 9:30 AM EDT Office Visit [facility] 10 [facility] [place] [address] Conner Sneed MD [address] [address] [email or web address] Scheduled Procedures Name Priority Associated Diagnoses Date/Ti me 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 IN TEACHER OF GIFTED STUDENTS Systolic congestive heart failure, unspecified HF chronicity [...] protrusionidentified. POS - [id number] us Jie Wu WELDING EQUIPMENT REPAIRER IMG MR XSPECIALTY Final Result documented in [...] as of this encounter Care Teams Digital Performance Analyst Relationship Specialty Start Date End Date Olegario Guy MD [address] [place] [address] [address] [place] [address] [email or web address] PCP - General Family Medicine 03/28/20 01/09/22 Marlene Harden NP 70 [place] [address] PCP - General Family Medicine 01/10/22 08/07/24 Cj Meyer DO [address] [place] [address] PCP - General Internal Medicine 08/08/24 Yue Rodrigez, VENKATA [address] [place] [address] [facility] Backend Developer 02/21/22 06/09/23 Jennifer Dash LCSW [address] [place] [address] [facility] Social Work 02/01/23 02/11/23 Yvonne Montana [address] [place] [address] [email or web address] [facility] Community Health Worker 02/25/23 06/09/23 Denins Temple MBBS [address] [place] [address] [email or web address] Primary Oncologist Hematology and Oncology 04/02/23 Gabriela Barnhart CNP [address] [place] [address] [email or web address] Nurse Practitioner Medical Oncology 01/16/24 documented as of this encounter Additional Source Comments The information contained in this document represents components of the legal health record. It is not the complete legal health record.[facility]
--- OUTSIDE RECORDS SUMMARY | 2025-04-08 05:30 | XMS_ITS | Clinical Summary ---
Author Organization [facility] Facility Address [address] [place] [address] Care Team Providers Care Certified Indoor Environmentalist Name Role Phone Marlene Harden NP Primary Care Provider [phone] Social History Tobacco Use Types Packs/Day Years [...] age to complete this topic Insurance [facility] Plan Care Teams Certified Indoor Environmentalist Relationship Specialty Start Date End Date Marlene Harden NP 70 [place] [address] PCP - General Nurse Practitioner 03/05/23
--- OUTSIDE RECORDS SUMMARY | 2025-04-08 05:30 | XMS_ITS | Encounter Summary ---
Author Organization [facility] Address [address] [facility] [address] [place] [address] Phone Care Team Providers Care Deputy Jailer Name Role Phone Marlene Harden NP Primary Care Provider [phone] Yue Rodrigez RN Unavailable Jennifer Dash MIXED CROP FARMER Unavailable [email or web address] Yvonne Montana Unavailable Dennis Temple MBBS Unavailable Gabriela Barnhart COMPUTER INSTALLATION ENGINEER Unavailable Cj Meyer DO Primary Care Provider [phone] Reason for Referral * - Closed Specialty Diagnoses / Procedures Referred By Contflorentin t Referred To Contact Diagnoses Permanent atrial fibrillation Procedures MCT (Mobile Cardiac Telemetry) Zack Sanchez DO Phone: tel: fax: mailto: Referral ID Status Reason Start Date Expiration Date Visits Re quested Visits Authorized [id number] Closed 04/11/2022 04/11/2023 1 1 Encounter Details Date Type Department Care Team (Latest Contact Info) Description 04/11/2022 Ancillary Orders [facility] [address] [facility] 3rd Floor, [address] [place] [address] Zack Sanchez DO [address] [address] [email or web address] Permanent atrial fibrillation Social History [...] AM EST Appointment [facility] 30 [place] [address] Conner Sneed MD [address] [place] [address] [email or web address] 05/14/2025 1:00 PM EST Office Visit [facility] [address] [place] [address] 3rd [facility], [address] [place] [address] Rehan Landaverde MD [address] [place] [address] 09/13/2025 9:30 AM EDT Office Visit [facility] 10 [place] [address] Conner Sneed MD [address] [place] [address] [email or web address] Scheduled Orders Name Type Priority Associated Diagnoses Orde r Schedule MCT (Mobile Cardiac Telemetry) Cardiac Monitors Routine Permanent atrial fibrillation Expected: 02/27/2022, Expires: 05/23/2022 Scheduled Procedures Name Priority Associated Diagnoses Date/Ti me 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 IN PARASITOLOGIST Systolic congestive heart failure, unspecified HF chronicity [...] as of this encounter Care Teams Deputy Jailer Relationship Specialty Start Date End Date Marlene Harden NP 70 [place] [address] PCP - General Family Medicine 01/10/22 08/07/24 Cj Meyer DO 70 [place] [address] PCP - General Internal Medicine 08/08/24 Yue Rodrigez, VENKATA [address] [place] [address] [facility] Tipping Machine Operator 02/21/22 06/09/23 Jennifer Dash LCSW [address] [place] [phone] [facility] Social Work 02/01/23 02/11/23 Yvonne Montana [address] [place] [address] [email or web address] Community Health Worker 02/25/23 06/09/23 Dennis Temple MBBS [address] [place] [address] [email or web address] Primary Oncologist Hematology and Oncology 04/02/23 Gabriela Barnhart CNP [address] [place] [address] [email or web address] Nurse Practitioner Medical Oncology 01/16/24 documented as of this encounter Additional Source Comments The information contained in this document represents components of the legal health record. It is not the complete legal health record.[facility]
--- OUTSIDE RECORDS SUMMARY | 2025-04-08 05:30 | XMS_ITS | Encounter Summary ---
Author Organization [facility] Address [address] [facility] [address] [place] [address] Phone Care Team Providers Care Research Manufacturing Operator Name Role Phone Olegario Guy MD Primary Care Provider [phone] Marlene Harden NP Primary Care Provider [phone] Yue Rodrigez RN Unavailable Jennifer Dash COMMUNITY OUTREACH ADVOCATE Unavailable [email or web address] Yvonne Montana Unavailable [email or web address] Dennis Temple MBBS Unavailable Gabriela Barnhart CHIEF CLOTH FINISHING RANGE OPERATOR Unavailable Cj Meyer DO Primary Care Provider Encounter Details Date Type Department Care Team (Late st Contact Info) Description 03/28/2020 Procedure Pass [facility], [address] [address] Social History Tobacco Use Types Packs/Day Years [...] AM EST Appointment [facility] 30 [place] [address] Conner Sneed MD 10 [facility] 2nd [place] [address] [email or web address] 05/14/2025 1:00 PM EST Office Visit [facility] [address] [facility] 3rd Floor, [address] [place] [address] Rehan Landaverde MD [address] [place] [address] 09/13/2025 9:30 AM EDT Office Visit [facility] 10 [place] [address] Conner Sneed MD [address] [place] [phone] [email or web address] Scheduled Procedures Name Priority Associated Diagnoses Date/Ti me 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 IN POLICE COMMUNICATIONS OPERATOR Systolic congestive heart failure, unspecified HF [...] documented as of this encounter Care Teams Research Manufacturing Operator Relationship Specialty Start Date End Date Olegario Guy MD [address] [facility] [address] [place] [address] [email or web address] PCP - General Family Medicine 03/28/20 01/09/22 Marlene Harden NP 70 [place], [place] PCP - General Family Medicine 01/10/22 08/07/24 Cj Meyer DO [address] [place] [address] PCP - General Internal Medicine 08/08/24 Yue Rodrigez, RN [address] [place] [address] [facility] Quality Control Auditor 02/21/22 06/09/23 Jennifer Dash LCSW [address] [place] [address] [facility] Social Work 02/01/23 02/11/23 Yvonne Montana [address] [place] [address] [facility] Community Health Worker 02/25/23 06/09/23 Dennis Temple MBBS [address] [place] [address] [email or web address] Primary Oncologist Hematology and Oncology 04/02/23 Gabriela Barnhart, CHIEF CLOTH FINISHING RANGE OPERATOR [address] [place] [address] [email or web address] Nurse Practitioner Medical Oncology 01/16/24 documented as of this encounter Additional Source Comments The information contained in this document represents components of the legal health record. It is not the complete legal health record.[facility]
--- OUTSIDE RECORDS SUMMARY | 2025-04-08 05:30 | XMS_ITS | Encounter Summary ---
Author Organization [facility] Address [address] [place] [address] Phone Care Team Providers Care Network Relations Consultant Name Role Phone Temple, Ahmastu Mccann MBBS Unavailable Pack, Gabriela BURIAL VAULT DELIVERER AND INSTALLER Unavailable Cj Meyer DO Primary Care Provider [phone] Encounter Details Date Type Department Care Team (Late st Contact Info) Description 12/09/2024 Procedure Pass [facility], Ct Scan - [address] [address] Social History Tobacco Use Types Packs/Day Years [...] AM EST Appointment [facility] 30 [place] [address] Conner Sneed MD [address] [address] [email or web address] 05/14/2025 1:00 PM EST Office Visit [facility] [address] [facility] 3[address] [facility], [address] [place] [address] Rehan Landaverde MD 50 [place] [address] 09/13/2025 9:30 AM EDT Office Visit [facility] 10 [facility] [place] [address] Conner Sneed MD 10 [facility] 2nd [place] [address] [email or web address] Scheduled Procedures Name Priority Associated Diagnoses Date/Ti me 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 IN FINANCIAL AUDITOR Systolic congestive heart failure, unspecified HF chronicity documented as of this encounter Visit Diagnoses Not on filedocumented in this encounter Additional Health Concerns Assessment Noted Time PHQ-2 Depression Total Score: 2 03/28/20 22 11:32 AM EDT documented as of this encounter Care Teams Network Relations Consultant Relationship Specialty Start Date End Date Cj Meyer DO [address] [place] [address] PCP - General Internal Medicine 08/08/24 Dennis Temple MBBS [email or web address] Primary Oncologist Hematology and Oncology 04/02/23 Gabriela Barnhart CNP 30 [place] [address] Nurse Practitioner Medical Oncology 01/16/24 documented as of this encounter Additional Source Comments The information contained in this document represents components of the legal health record. It is not the complete legal health record.[facility]
--- OUTSIDE RECORDS SUMMARY | 2025-04-08 05:30 | XMS_ITS | Clinical Summary ---
Author Organization [facility] Address [address] [facility] [address] [place] [address] Phone Care Team Providers Care Executive Officer Special Warfare Team Name Role Phone Temple, Ahmastu Mccann MBBS Unavailable [phone] ObeyPolaen BOOK CUTTER Unavailable Cj Meyer DO Primary Care Provider [phone] Allergies Active Allergy Reactions Criticality Noted Date [...] (LIPITOR) 40 MG tabletIndicatio ns:Atherosclero sis of tazlina coronary artery of tazlina heart without angina pectoris TAKE 1 TABLET [...] also going to discuss this with his building services engineer in 1 month to see if he would like to proceed. Assessment & Plan (11/06/2024 4:37 PM EDT): -last stable in Aug on lasix 40 mg qd entresto 24-26 mg bid Most recent echo July showed recovered EF 65 to 70% general good cardiac function. Do not see any additional echocardiograms on the discharge paperwork from [facility] or [facility] where he has been. -[facility] and seemed to be overdiuresed in recent [...] general good cardiac function -[facility] wt at [facility] and seemed to be overdiuresed in recent [...] 70% general good cardiac function During his [facility] stay stay 1 month well being significantly [...] stable Also has been on steroids at [facility]. This may be contributing to his weight [...] stable Also has been on steroids at [facility]. Continue trellegy and kelvinbs. Chronic pain Continue chronic oxy Assessment & Plan (11/05/2024 1:26 AM EDT): Chronic COPD on home O2 2L and stable Also has been on steroids at [facility]. Continue trellegvincent and carlos. Chronic pain Continue [...] rehab Left hemiparesis 08/05/2024 Overview (08/30/2024): Per [facility] discharge summary 08/03/24 Cerebral hemorrhage 08/04/2024 Overview (08/30/2024): Right lentiform nucleus hemorrhage Per [facility] discharge summary 08/03/24 Assessment & Plan [...] 07/30/2024, after initially presenting to [facility] and had findings of acute bleed. Immediately prior to that patient had a hospitalization for COPD exacerbation and suspected seizure where patient was placed on Keppra. Was discharged on 08/03/2024 to rehab however redeveloped worsening headache, found to have worsening vasogenic edema and subsequently readmitted at [facility] on 08/08/2024. Hospital course was complicated by COPD exacerbation secondary to RSV virus with patient was subsequently discharged on a steroid taper to [facility] rehab. -- No new concerns. His DOAC [...] 07/30/2024, after initially presenting to [facility] and had findings of acute bleed. Immediately prior to that patient had a hospitalization for COPD exacerbation and suspected seizure where patient was placed on Keppra. -Was discharged on 08/03/2024 to rehab however redeveloped worsening headache, found to have worsening vasogenic edema and subsequently readmitted at [facility] on 08/08/2024. Hospital course was complicated by COPD exacerbation secondary to RSV virus with patient was subsequently discharged on a steroid taper to [facility] rehab. -Through reviewing discharge records from [facility] on 08/13/2024, recommendations from neurology were [...] or leukocytosis -Ceftriaxone azithromycin -repeat chest x-ray -air sampling and monitoring -Supplemental oxygen Other hyperlipidemia 06/18/2024 Assessment & [...] in late September until now -labs from [facility] 11 down to 7s, now in 8s. [...] in late September until now -labs from [facility] 11 down to 7s, now in 8s, [...] September until now Labs provided by the [facility] reveal a drop in hemoglobin during that [...] on 08/26/2024 per recommendations from neurology from [facility] upon discharge with instructions to discontinue aspirin. -- Continue Toprol-XL, amiodarone rivaroxaban Assessment & Plan (08/30/2024 6:01 PM EST): Continue amiodarone, metoprolol 50 mg, Xarelto 20 mg. Patient resume Xarelto on 08/26/2024 per recommendations from neurology from [facility] upon discharge with instructions to discontinue [...] PM EST): With rapid ventricular response. His building services engineer, Dr. Morales started him on amiodarone 05/26 [...] decision to send patient to [facility] ED for evaluation/treatment to monitor closely [...] improvement, no ICD was recommended. 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 03/29/2025 Telephone [facility] [address] 3[address] Floor, [address] [place], [place] [id number] Zack Sanchez DO 03/16/2025 9:00 AM EDT Office Visit [facility] 10 [place] [address] Conner Sneed MD Former smoker; Pulmonary emphysema, unspecified emphysema type 03/16/2025 Telephone [facility] Pul[facility], Allergy and Critical Care Medicine 10 [place] [address] Cindy Tovar POC order 03/11/2025 Refill [facility] 10 [place] [address] Conner Sneed MD Medication Refill 03/03/2025 Telephone [facility] [address] 3rd Floor, [address] [place] [address] Bailey Ocasio 01/22/2025 3:40 PM EDT Office Visit [facility] [address] [facility] 3rd Floor, [address] [place] [address] Rehan Landaverde MD Paroxysmal atrial fibrillation (Primary [...] AM EST Appointment [facility] 30 [place] [address] Conner Sneed MD [address] [place] [address] [email or web address] 05/14/2025 1:00 PM EST Office Visit [facility] [address] [facility] 3rd Floor, [address] [place] [address] Rehan Landaverde MD [address] [place] [address] 09/13/2025 9:30 AM EDT Office Visit [facility] 10 [place] [address] Conner Sneed MD [address] [place] [address] [email or web address] Scheduled Procedures Name Priority Associated Diagnoses Date/Ti me 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 IN COMMISSARY PRODUCTION SUPERVISOR Systolic congestive heart failure, unspecified HF [...] this topic Medical Devices Implanted Type Area Director Semiconductor Device Identifier Shelf Expiration Date Model / [...] clinician's provided indication for this examination in [facility]: Lung Cancer Screening - FORMER [...] clinician's provided indication for this examination in [facility]:Lung Cancer Screening - FORMER smoker, [...] EDT) TSH 3.65 0.27 - 4.20 uIU/mL [facility] Blood 11/07/2024 5:31 AM EDT 11/07/2024 6:00 AM EDT us Giuliano Adan MD LAB BLOOD ORDERABLES Final Result [facility] [address] [place] [address] * (ABNORMAL) Comprehensive metabolic panel (11/05/2024 5:57 AM EDT) SODIUM 139 133 - 146 mmol/L [facility] POTASSIUM 3.6 3.3 - 5.1 mmol/L [facility] CHLORIDE 97 96 - 108 mmol/L [facility] CO2 32 21 - 35 mmol/L [facility] BUN 39(H) 6 - 19 mg/dL [facility] CREATININE 1.90(H) 0.5 - 1.5 mg/dL [facility] GLUCOSE 112(H) 70 - 99 mg/dL [facility] ALBUMIN 3.2(L) 3.9 - 4.8 g/dL [facility] TOTAL PROTEIN 6.2(L) 6.5 - 8.0 g/dL [facility] CALCIUM 8.5 8.4 - 10.3 mg/dL [facility] ALKALINE PHOSPHATASE 91 39 - 117 U/L [facility] TOTAL BILIRUBIN <0.2 0.0 - 1.2 mg/dL [facility] AST 16 0 - 37 U/L [facility] ALT 14 0 - 40 U/L [facility] GLOBULIN 3.0 1 - 4.8 g/dL [facility] EGFR 40(L) >59 mL/min/1.7 3m2 [facility] Comment:Estimated glomerular filtration rate calculated using the CKD-EPI refit equation. ANION GAP 14 10 - 20 mmol/L [facility] Blood 11/05/2024 5:57 AM EDT 11/05/2024 6:34 AM EDT Anastacia Dietrich MD LAB BLOOD ORDERABLES Final Result Performing Organization Address City/State/[facility] Co de Phone Number [address] [address] * ENDOSCOPY, COLON (02/22/2023 1:37 PM EDT) Narrative Transcriptions Ioana Armijo MD - 02/22/2023 1:37 PM EDT [facility] Patient Name: Yousif Orellana Attending MD:: IOANA ARMIJO MD, Procedure Date: 02/22/2023 1:37 PM Date of : 1965 Age: 57 Admit Type: Inpatient Gender: Male Room: [place] [address] Referring MD: SHANIKA MONTEMAYOR NP Exam Type: [...] 1:37 PM Procedure Code(s): --- Professional --- 62900, Colonoscopy, flexible; diagnostic, including collection of specimen(s) by brushing or washing, when performed (separateprocedure) --- Technical --- 58833, Colonoscopy, flexible; diagnostic, including collection of specimen(s) by brushing or washing, when performed (separateprocedure) Diagnosis Code(s): --- Professional --- D50.9, Iron deficiency anemia, unspecified --- Technical --- D50.9, Iron deficiency anemia, unspecified CPT copyright 2021 [employer]. All rights reserved. The codes documented in this report are preliminary and upon director of land acquisition reviewmay be revised to meet current compliance requirements. Procedure Date: 02/22/2023 1:37:[address] [place] [address] Shanika Montemayor NP GI PROCEDURE ORDERABLES Final R esult from Last 3 Months or Most Recently Relevant to Health Maintenance Insurance [facility] MEDICARE PART A & B [place] B MEDICARE PART [place] & [place] [employer]ANCE Advance Directives For more information, please contact: [phone] (9AM - 5PM [facility], Saturday-Saturday) Documents on File Type Date Recorded Patient Flap Lining Binder Expl anation Healthcare Proxy 07/22/2024 3:40 PM [...] Agent (Proxy form on file) Care Teams Executive Officer Special Warfare Team Relationship Specialty Start Date End Date Cj Meyer DO [address] [place] [address] PCP - General Internal Medicine 08/08/24 Dennis Temple MBBS [email or web address] Primary Oncologist Hematology and Oncology 04/02/23 Gabriela Barnhart CNP [address] [place] [address] [email or web address] Nurse Practitioner Medical Oncology 01/16/24 Additional Source Comments The information contained in this document represents components of the legal health record. It is not the complete legal health record.[facility]
--- OUTSIDE RECORDS SUMMARY | 2025-04-08 05:30 | XMS_ITS | Encounter Summary ---
Author Organization [facility] Address [address] [place] [address] Phone Care Team Providers Care Blood Bank Manager Name Role Phone Temple, Ahmastu Mccann MBBS Unavailable Pack, Gabriela BLOCK ENGRAVER Unavailable Cj Meyer DO Primary Care Provider [phone] Encounter Details Date Type Department Care Team (Late st Contact Info) Description 08/30/2024 Procedure Pass [facility], Ct Scan - [facility] 30 [place] [address] Social History Tobacco Use Types Packs/Day Years [...] AM EST Appointment [facility] PFT Lab 30 [place] [address] Conner Sneed MD [address] [address] [email or web address] 05/14/2025 1:00 PM EST Office Visit [facility] [address], [address] [place] [address] Rehan Landaverde MD 50 [place] [address] 09/13/2025 9:30 AM EDT Office Visit [facility] Pulmonary, Allergy and Critical Care Medicine 10 [place] [address] Conner Sneed MD 10 [facility] 2nd [place] [address] [email or web address] Scheduled Procedures Name Priority Associated Diagnoses Date/Ti me 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 IN PRECISION AIRCRAFT SYSTEMS ASSEMBLER Systolic congestive heart failure, unspecified HF chronicity documented as of this encounter Visit Diagnoses Not on filedocumented in this encounter Additional Health Concerns Infection Onset Date Last Indicated Resolved Time CoV-Risk Comment:Per note documentation 08/29/2024 08/29/2024 7:27 AM EST Assessment Noted Time PHQ-2 Depression Total Score: 2 03/28/20 22 11:32 AM EDT documented as of this encounter Care Teams Blood Bank Manager Relationship Specialty Start Date End Date Cj Meyer DO [address] [place] [address] PCP - General Internal Medicine 08/08/24 Dennis Temple MBBS [email or web address] [email or web address] Primary Oncologist Hematology and Oncology 04/02/23 Gabriela Barnhart CNP 30 [place] [address] Nurse Practitioner Medical Oncology 01/16/24 documented as of this encounter Additional Source Comments The information contained in this document represents components of the legal health record. It is not the complete legal health record.[facility]
--- OUTSIDE RECORDS SUMMARY | 2025-04-08 05:30 | XMS_ITS | Encounter Summary ---
Author Organization [facility] Address [address] [facility] [address] [place] [address] Phone Care Team Providers Care Soap Inspector Name Role Phone Olegario Guy MD Primary Care Provider Marlene Harden LAY OUT MACHINE OPERATOR Primary Care Provider Yue Rodrigez RN Unavailable Jennifer Dash CONCRETE PAVING SUPERVISOR Unavailable [email or web address] Yvonne Montana Unavailable [email or web address] Dennis Temple MBBS Unavailable [phone] Gabriela Barnhart OPHTHALMIC TECHNICIAN Unavailable Cj Meyer DO Primary Care Provider Encounter Details Date Type Department Care Team (Latest Contact Info) Description 01/02/2022 Transcribe Orders Virtual Department 30 [place] [address] Marlene Harden, CAM [address] [place], [place] [id number] Shortness of breath (Primary Dx); Dyspnea, unspecified [...] Info) Description 05/13/2025 9:30 AM EST Appointment [facility] PFT Lab 30 [place] [address] Conner Sneed MD [address] [address] [email or web address] 05/14/2025 1:00 PM EST Office Visit [facility] [address], [address] [place] [address] Rehan Landaverde MD [address] [place] [address] 09/13/2025 9:30 AM EDT Office Visit [facility] Pulmonary, Allergy and Critical Care Medicine 10 [place] [address] Conner Sneed MD [address] [place] [address] [email or web address] Scheduled Procedures Name Priority Associated Diagnoses Date/Ti me PA MONITOR INSERTION IN PIPED BUTTONHOLE MACHINE OPERATOR Systolic congestive heart failure, unspecified HF chronicity documented as of this encounter Results * Pulmonary Function Test Reason for Exam: Dyspnea/Shortness of Breath; Type of PFT Test: Spirometry with bronchodilator, DLCO, Lung Volumes; Performing Location: [facility] (05/21/2022 3:49 PM EST) FEV1 1.08 [...] criteria. Clinical and radiographic correlation advised. Result [facility] Marlene Harden NP PFT ORDERABLES [...] as of this encounter Care Teams Soap Inspector Relationship Specialty Start Date End Date Olegario Guy MD 230 [facility] [address] [place] [address] PCP - General Family Medicine 03/28/20 01/09/22 Marlene Harden LAY OUT MACHINE OPERATOR 70 [place] [address] PCP - General Family Medicine 01/10/22 08/07/24 Cj Meyer DO [address] [place] [address] PCP - General Internal Medicine 08/08/24 Yue Rodrigez RN [address] [place] [address] [email or web address] [facility] Zinc Plate Grainer 02/21/22 06/09/23 Jennifer Dash LCSW [address] [place] [address] [email or web address] [facility] Social Work 02/01/23 02/11/23 Yvonne Montana [address] [place] [address] [email or web address] [facility] Community Health Worker 02/25/23 06/09/23 Dennis Temple MBBS [address] [place] [address] [email or web address] Primary Oncologist Hematology and Oncology 04/02/23 Gabriela Barnhart CNP [address] [place] [address] [email or web address] Nurse Practitioner Medical Oncology 01/16/24 documented as of this encounter Additional Source Comments The information contained in this document represents components of the legal health record. It is not the complete legal health record.[facility]
--- OUTSIDE RECORDS SUMMARY | 2025-04-08 05:30 | XMS_ITS | Encounter Summary ---
Author Organization [facility] Address [address] [facility] [address] [place] [address] Phone Care Team Providers Care Assistant Librarian Name Role Phone Marlene Harden RECEIVABLE CLERK Primary Care Provider Yue Rodrigez RN Unavailable Jennifer Dash MIXED CROP AND LIVESTOCK FARMER Unavailable felisa Yvonne Montana Unavailable [email or web address] Dennis Temple MBBS Unavailable [phone] Gabriela Barnhart MANAGER MACHINE Unavailable Cj Meyer DO Primary Care Provider [phone] Encounter Details Date Type Department Care Team (Late st Contact Info) Description 09/03/2022 Procedure Pass [facility], Ct Scan - [address] [address] Social History Tobacco Use Types Packs/Day Years [...] EST Appointment [facility] [address] [place] [address] Conner Sneed MD 10 [facility] 2nd [place] [address] [email or web address] 05/14/2025 1:00 PM EST Office Visit [facility] 22 [facility] 3rd Floor, [address] [place] [address] Rehan Landaverde MD 50 [place] [address] 09/13/2025 9:30 AM EDT Office Visit [facility] Pulmonary, Allergy and Critical Care Medicine 10 [facility] [place] [address] Conner Sneed MD [address] [address] [email or web address] Scheduled Procedures Name Priority Associated Diagnoses Date/Ti me PA MONITOR INSERTION IN SUPERVISOR LACE TEARING Systolic congestive heart failure, unspecified HF chronicity [...] EST CoV-Risk Comment:Per note documentation 08/29/2024 08/29/2024 5 7:27 AM EST Assessment Noted Time PHQ-2 Depression Total Score: 2 03/28/20 22 11:32 AM EDT documented as of this encounter Care Teams Assistant Librarian Relationship Specialty Start Date End Date Marlene Harden NP 70 [place] [address] PCP - General Family Medicine 01/10/22 08/07/24 Cj Meyer DO 70 [place] [address] PCP - General Internal Medicine 08/08/24 Yue Rodrigez, VENKATA [address] [place] [address] [facility] [place] Track Announcer 02/21/22 06/09/23 Jennifer Dash LCSW [address] [place] [address] [facility] [place] Social Work 02/01/23 02/11/23 Yvonne Montana [address] [place] [address] [facility] [place] Community Health Worker 02/25/23 06/09/23 Dennis Temple MBBS [address] [place] [address] [email or web address] Primary Oncologist Hematology and Oncology 04/02/23 Gabriela Barnhart CNP [address] [place] [address] Nurse Practitioner Medical Oncology 01/16/24 documented as of this encounter Additional Source Comments The information contained in this document represents components of the legal health record. It is not the complete legal health record.[facility]
--- OUTSIDE RECORDS SUMMARY | 2025-04-08 05:30 | XMS_ITS | Encounter Summary ---
Author Organization [facility] Address [address] [place] [address] Phone Care Team Providers Care Gynecology Teacher Name Role Phone Dereck Marlene Delvalle MANUAL ARTS THERAPY TEACHER Primary Care Provider [phone] Dennis Temple MBBS Unavailable [phone] Gabriela Barnhart LOAD CHECKER Unavailable Cj Meyer DO Primary Care Provider [phone] Encounter Details Date Type Department Care Team (Late st Contact Info) Description 07/18/2024 Procedure Pass [facility], [facility] [address] [place] [address] Social History Tobacco Use Types [...] AM EST Appointment [facility] PFT Lab 30 [place] [address] Conner Sneed MD [address] [place] [address] [email or web address] 05/14/2025 1:00 PM EST Office Visit [facility] [address] 3rd Floor, [address] [place] [address] Rehan Landaverde MD 50 [place] [address] 09/13/2025 9:30 AM EDT Office Visit [facility] Pulmonary, Allergy and Critical Care Medicine 10 [facility] [place] [address] Conner Sneed MD 10 [facility] 2nd [place] [address] [email or web address] Scheduled Procedures Name Priority Associated Diagnoses Date/Ti me PA MONITOR INSERTION IN MATTRESS INSPECTOR Systolic congestive heart failure, unspecified HF [...] documented as of this encounter Care Teams Gynecology Teacher Relationship Specialty Start Date End Date Marlene Harden NP 70 [place] [address] PCP - General Family Medicine 01/10/22 08/07/24 Cj Meyer DO 70 [place] [address] PCP - General Internal Medicine 08/08/24 Dennis Temple MBBS [address] [place] [address] [email or web address] Primary Oncologist Hematology and Oncology 04/02/23 Gabriela Barnhart CNP [address] [place] [address] [email or web address] Nurse Practitioner Medical Oncology 01/16/24 documented as of this encounter Additional Source Comments The information contained in this document represents components of the legal health record. It is not the complete legal health record.[facility]
--- OUTSIDE RECORDS SUMMARY | 2025-04-08 05:30 | XMS_ITS | Encounter Summary ---
Author Organization [facility] Address [address] [facility] [address] [place] [address] Phone Care Team Providers Care Electrode Turner And Finisher Name Role Phone Marlene Harden TABULAR TYPIST Primary Care Provider [phone] Yue Rodrigez RN Unavailable Jennifer Dash RETAIL MARKETING SPECIALIST Unavailable felisa Yvonne Montana Unavailable [email or web address] Dennis Temple MBBS Unavailable [phone] Gabriela Barnhart REFUSE LABORER Unavailable Cj Meyer DO Primary Care Provider [phone] Encounter Details Date Type Department Care Team (Late st Contact Info) Description 02/20/2022 Procedure Pass [facility] [address] [place] [address] Social History Tobacco Use Types Packs/Day [...] 11:20 AM EDT Elizabeth Le RN * [place] Suicide Severity Rating Scale (Screener/Recent Self-Report) Question [...] AM EST Appointment [facility] PFT Lab 30 [place] [address] Conner Sneed MD [address] [place] [address] [email or web address] 05/14/2025 1:00 PM EST Office Visit [facility] [address] [place] [address] [address] [facility], [address] [place] [address] Rehan Landaverde MD [address] [place] [address] 09/13/2025 9:30 AM EDT Office Visit [facility] Allergy [facility] Critical [facility] Medicine 10 [place] [address] Conner Sneed MD [address] [place] [address] [email or web address] Scheduled Procedures Name Priority Associated Diagnoses Date/Ti me PA MONITOR INSERTION IN SAP ANALYST Systolic congestive heart failure, unspecified HF [...] documented as of this encounter Care Teams Electrode Turner And Finisher Relationship Specialty Start Date End Date Marlene Harden TABULAR TYPIST 70 [place] [address] PCP - General Family Medicine 01/10/22 08/07/24 Cj Meyer DO 70 [place] [address] PCP - General Internal Medicine 08/08/24 Yue Rodrigez, VENKATA [address] [place] [address] [email or web address] [facility] Family Lawyer 02/21/22 06/09/23 Jennifer Dash LCSW [address] [place] [address] [email or web address] [facility] Social Work 02/01/23 02/11/23 Yvonne Montana [address] [place] [address] [email or web address] [facility] Community Health Worker 02/25/23 06/09/23 Dennis Temple MBBS [address] [place] [address] [email or web address] Primary Oncologist Hematology and Oncology 04/02/23 Gabriela Barnhart CNP [address] [place] [address] [email or web address] Nurse Practitioner Medical Oncology 01/16/24 documented as of this encounter Additional Source Comments The information contained in this document represents components of the legal health record. It is not the complete legal health record.[facility]
--- OUTSIDE RECORDS SUMMARY | 2025-04-08 05:30 | XMS_ITS | Encounter Summary ---
Author Organization [facility] Address [address] [facility] [address] [place] [address] Phone Care Team Providers Care Concrete Engineer Name Role Phone Marlene Harden NP Primary Care Provider Yue Rodrigez RN Unavailable Jennifer Dash DRUM SANDER OFFBEARER Unavailable felisa Yvonne Montana Unavailable Dennis Temple MBBS Unavailable [phone] Gabriela Barnhart TRUSS DESIGNER Unavailable Cj Meyer DO Primary Care Provider [phone] Encounter Details Date Type Department Care Team (Late st Contact Info) Description 05/29/2022 Procedure Pass [facility] Cardiovascular And Interventional Radiology 30 [place] [address] Social History Tobacco Use Types Packs/Day Years [...] AM EST Appointment [facility] PFT Lab 30 [place] [address] Conner Sneed MD [address] [address] [email or web address] 05/14/2025 1:00 PM EST Office Visit [facility] 22 [facility] 3rd Floor, [address] [place] [address] Rehan Landaverde MD [address] [place] [address] 09/13/2025 9:30 AM EDT Office Visit [facility], Allergy and Critical Care Medicine 10 [place] [address] Conner Sneed MD [address] [address] [email or web address] Scheduled Procedures Name Priority Associated Diagnoses Date/Ti me PA MONITOR INSERTION IN DELIMER Systolic congestive heart failure, unspecified HF chronicity [...] documented as of this encounter Care Teams Concrete Engineer Relationship Specialty Start Date End Date Marlene Harden NP 70 [place] [address] PCP - General Family Medicine 01/10/22 08/07/24 Cj Meyer DO 70 [place] [address] PCP - General Internal Medicine 08/08/24 Yue Rodrigez, VENKATA [address] [place] [address] [facility] Coil Strapper 02/21/22 06/09/23 Jennifer Dash LCSW [address] [place] [address] [email or web address] [facility] Social Work 02/01/23 02/11/23 Yvonne Montana [address] [place] [address] [email or web address] [facility] Community Health Worker 02/25/23 06/09/23 Dennis Temple MBBS [address] [place] [address] [email or web address] Primary Oncologist Hematology and Oncology 04/02/23 Gabriela Barnhart CNP [address] [place] [address] Nurse Practitioner Medical Oncology 01/16/24 documented as of this encounter Additional Source Comments The information contained in this document represents components of the legal health record. It is not the complete legal health record.[facility]
--- OUTSIDE RECORDS SUMMARY | 2025-04-08 05:30 | XMS_ITS | Encounter Summary ---
Author Organization [facility] Address [address] [facility] [address] [place] [address] Phone Care Team Providers Care Station Mechanic Apprentice Name Role Phone Olegario Guy MD Primary Care Provider Marlene Harden NP Primary Care Provider Yue Rodrigez RN Unavailable Jennifer Dash POTABLE WATER TREATMENT OPERATOR Unavailable ndelabar Yvonne Montana Unavailable Dennis Temple MBBS Unavailable Gabriela Barnhart POOL CLEANER Unavailable Cj Meyer DO Primary Care Provider [phone] Encounter Details Date Type Department Care Team (Latest Contact Info) Description 03/28/2020 Transcribe Orders Virtual Department 30 [place] [address] Jie Wu NP [address] [place] [phone] [email or web address] Neck pain (Primary Dx) Social History Tobacco [...] AM EST Appointment [facility] PFT Lab 30 [place] [address] Conner Sneed MD [address] [address] [email or web address] 05/14/2025 1:00 PM EST Office Visit [facility] 22 [facility] 3rd Floor, [address] [place] [address] Rehan Landaverde MD [address] [place] [address] 09/13/2025 9:30 AM EDT Office Visit [facility] Pulmonary, Allergy and Critical Care Medicine 10 [facility] [place] [address] Conner Sneed MD [address] [place] [address] [email or web address] Scheduled Procedures Name Priority Associated Diagnoses Date/Ti me PA MONITOR INSERTION IN WARNING ANALYST Systolic congestive heart failure, unspecified HF [...] stable. No evidence of instability. POS - [id number] Narrative 04/01/2020 9:03 AM EDT HISTORY: Left [...] is stable. No evidence ofinstability. POS - [id number] Jie Wu LICENSED MORTICIAN IMG XR SPINE Final Result documented in [...] documented as of this encounter Care Teams Station Mechanic Apprentice Relationship Specialty Start Date End Date Olegario Guy MD 230 [facility] [address] [place] [address] [email or web address] PCP - General Family Medicine 03/28/20 01/09/22 Marlene Harden, LICENSED MORTICIAN 70 [place] [address] PCP - General Family Medicine 01/10/22 08/07/24 Cj Meyer DO [address] [place] [address] PCP - General Internal Medicine 08/08/24 Yue Rodrigez, VENKATA [address] [place] [address] [facility] Refractory Mixer 02/21/22 06/09/23 Jennifer Dash LCSW [address] [place] [address] [facility] Social Work 02/01/23 02/11/23 Yvonne Montana [address] [place] [address] [email or web address] [facility] Community Health Worker 02/25/23 06/09/23 Dennis Temple MBBS [address] [place] [address] [email or web address] Primary Oncologist Hematology and Oncology 04/02/23 Gabriela Barnhart CNP [address] [place] [address] Nurse Practitioner Medical Oncology 01/16/24 documented as of this encounter Additional Source Comments The information contained in this document represents components of the legal health record. It is not the complete legal health record.[facility]
--- OUTSIDE RECORDS SUMMARY | 2025-04-08 05:30 | XMS_ITS | Encounter Summary ---
Author Organization [facility] Address [address] [facility] [address] [place] [address] Phone Care Team Providers Care Barrel Brander Name Role Phone Dereck Marlene Mook GRAVITY PROSPECTING SUPERVISOR Primary Care Provider Dennis Temple MBBS Unavailable [phone] Gabriela Barnhart BAG VALVER Unavailable Cj Meyer DO Primary Care Provider Encounter Details Date Type Department Care Team (Late st Contact Info) Description 07/28/2024 Procedure Pass [facility], Ct Scan - [address] [id number] Social History Tobacco Use Types Packs/Day Years [...] 9:13 PM EST Adrian Herrera, VENKATA * [place] Suicide Severity Rating Scale (Screener/Recent Self-Report) Question [...] AM EST Appointment [facility] PFT Lab 30 [place] [address] Conner Sneed MD [address] [place] [address] [email or web address] 05/14/2025 1:00 PM EST Office Visit [facility] 22 [facility] 3rd Floor, [address] [place] [address] Rehan Landaverde MD 50 [place] [address] 09/13/2025 9:30 AM EDT Office Visit [facility], Allergy and Critical Care Medicine 10 [place] [address] Conner Sened MD [address] [place] [address] [email or web address] Scheduled Procedures Name Priority Associated Diagnoses Date/Ti me PA MONITOR INSERTION IN PET CAREGIVER Systolic congestive heart failure, unspecified HF chronicity [...] as of this encounter Care Teams Barrel Brander Relationship Specialty Start Date End Date Marlene Harden NP 70 [place] [address] PCP - General Family Medicine 01/10/22 08/07/24 Cj Meyer DO 70 [place] [address] PCP - General Internal Medicine 08/08/24 Dennis Temple MBBS 70 [place] [address] [email or web address] Primary Oncologist Hematology and Oncology 04/02/23 Gabriela Barnhart CNP [address] [place] [address] [email or web address] Nurse Practitioner Medical Oncology 01/16/24 documented as of this encounter Additional Source Comments The information contained in this document represents components of the legal health record. It is not the complete legal health record.[facility]
--- OUTSIDE RECORDS SUMMARY | 2025-04-08 05:30 | XMS_ITS | Encounter Summary ---
Author Organization [facility] Address [address] [facility] [address] [place] [address] Phone Care Team Providers Care Acetylene Operator Name Role Phone Olegario Guy MD Primary Care Provider [phone] Marlene Harden NP Primary Care Provider [phone] Yue Rodrigez RN Unavailable Jennifer Dash BUDGET CONSULTANT Unavailable [email or web address] Yvonne Montana Unavailable Dennis Temple MBBS Unavailable [phone] Gabriela Barnhart MACHINE TECH Unavailable Cj Meyer DO Primary Care Provider Encounter Details Date Type Department Care Team (Late st Contact Info) Description 01/05/2022 Procedure Pass [facility], Ct Scan - [facility] 30 [place] [address] Social History Tobacco Use Types Packs/Day Years [...] AM EST Appointment [facility] 30 [place] [address] Conner Sneed MD [address] [address] [email or web address] 05/14/2025 1:00 PM EST Office Visit [facility] 3[facility] [address], [address] [place] [address] Rehan Landaverde MD 50 [place] [address] 09/13/2025 9:30 AM EDT Office Visit [facility] 10 [facility][1] [place] [address] Conner Sneed MD [address] [address] [email or web address] Scheduled Procedures Name Priority Associated Diagnoses Date/Ti tx PA MONITOR INSERTION IN CONTROLLER OPERATIONS AND HR MANAGER Systolic congestive heart failure, unspecified HF [...] documented as of this encounter Care Teams Acetylene Operator Relationship Specialty Start Date End Date Olegario Guy MD [address] [facility] [address] [place] [address] [email or web address] PCP - General Family Medicine 03/28/20 01/09/22 Marlene Harden NP 70 [place] [address] PCP - General Family Medicine 01/10/22 08/07/24 Cj Meyer DO [address] [place] [address] PCP - General Internal Medicine 08/08/24 Yue Rodrigez, VENKATA [address] [place] [address] [facility] Compliance Engineer 02/21/22 06/09/23 Jennifer Dash LCSW [address] [place] [address] [facility] Social Work 02/01/23 02/11/23 Yvonne Montana [address] [place] [address] [facility] Community Health Worker 02/25/23 06/09/23 Dennis Temple MBBS [address] [place] [address] [email or web address] Primary Oncologist Hematology and Oncology 04/02/23 Gabriela Barnhart CNP [address] [place] [address] Nurse Practitioner Medical Oncology 01/16/24 documented as of this encounter Additional Source Comments The information contained in this document represents components of the legal health record. It is not the complete legal health record.[facility]
--- OUTSIDE RECORDS SUMMARY | 2025-04-08 05:30 | XMS_ITS | Encounter Summary ---
Author Organization [facility] Address [address] [place] [address] Phone Care Team Providers Care Junior Linux Systems Administrator Name Role Phone Temple, Ahmastu Mccann MBBS Unavailable [phone] Pack, Gabriela EYE DROPPER ASSEMBLER Unavailable Cj Meyer DO Primary Care Provider [phone] Encounter Details Date Type Department Care Team (Late st Contact Info) Description 11/07/2024 Procedure Pass [facility], Ct Scan - [address] [address] Social History Tobacco Use Types Packs/Day Years [...] AM EST Appointment [facility] 30 [place] [address] Conner Sneed MD [address] [address] [email or web address] 05/14/2025 1:00 PM EST Office Visit [facility] [address] [facility] [address], [address] [place] [address] Rehan Landaverde MD 50 [place] [address] 09/13/2025 9:30 AM EDT Office Visit [facility] 10 [facility] [place] [address] Conner Sneed MD 10 [facility] 2nd [place] [address] [email or web address] Scheduled Procedures Name Priority Associated Diagnoses Date/Ti me PA MONITOR INSERTION IN NATIONAL STORMWATER LEADER Systolic congestive heart failure, unspecified HF chronicity documented as of this encounter Visit Diagnoses Not on filedocumented in this encounter Additional Health Concerns Assessment Noted Time PHQ-2 Depression Total Score: 2 03/28/20 22 11:32 AM EDT documented as of this encounter Care Teams Junior Linux Systems Administrator Relationship Specialty Start Date End Date Cj Meyer DO [address] [place] [address] PCP - General Internal Medicine 08/08/24 Dennis Temple MBBS [email or web address] Primary Oncologist Hematology and Oncology 04/02/23 Gabriela Barnhart CNP 30 [place] [address] Nurse Practitioner Medical Oncology 01/16/24 documented as of this encounter Additional Source Comments The information contained in this document represents components of the legal health record. It is not the complete legal health record.[facility]
--- OUTSIDE RECORDS SUMMARY | 2025-04-08 05:30 | XMS_ITS | Encounter Summary ---
Author Organization [facility] Address [address] [place] [address] Phone Care Team Providers Care Chief Catalyst Operator Name Role Phone Dereck Marlene Mook PROFESSIONAL ORGANIZER Primary Care Provider Dennis Temple MBBS Unavailable Gabriela Barnhart MAINTENANCE TEAM MEMBER Unavailable Cj Meyer DO Primary Care Provider Encounter Details Date Type Department Care Team (Late st Contact Info) Description 07/18/2024 Procedure Pass [facility], Ct Scan - [address] [address] Social History Tobacco Use Types Packs/Day Years [...] AM EST Appointment [facility] 30 [place] [address] Conner Sneed MD [address] [place] [address] [email or web address] 05/14/2025 1:00 PM EST Office Visit [facility] [address] 3rd Floor, [address] [place] [address] Rehan Landaverde MD [address] [place] [address] 09/13/2025 9:30 AM EDT Office Visit [facility] 10 [facility] [place] [address] Conner Sneed MD 10 [facility] 2nd [place] [address] [email or web address] Scheduled Procedures Name Priority Associated Diagnoses Date/Ti me PA MONITOR INSERTION IN FORESTRY CONSERVATION WORKER Systolic congestive heart failure, unspecified HF [...] as of this encounter Care Teams Chief Catalyst Operator Relationship Specialty Start Date End Date Marlene Harden NP 70 [place] [address] PCP - General Family Medicine 01/10/22 08/07/24 Cj Meyer DO 70 [place] [address] PCP - General Internal Medicine 08/08/24 Dennis Tmeple MBBS [address] [place] [address] [email or web address] Primary Oncologist Hematology and Oncology 04/02/23 Gabriela Barnhart CNP [address] [place] [address] [email or web address] Nurse Practitioner Medical Oncology 01/16/24 documented as of this encounter Additional Source Comments The information contained in this document represents components of the legal health record. It is not the complete legal health record.[facility]
--- OUTSIDE RECORDS SUMMARY | 2025-04-08 05:30 | XMS_ITS | Encounter Summary ---
Author Organization [facility] Address [address] [facility] [address] [place] [address] Phone Care Team Providers Care Die Sinker Apprentice Name Role Phone Marlene Harden CELERY CUTTER Primary Care Provider Yue Rodrigez RN Unavailable Jennifer Dash ROLL CARRIER Unavailable felisa Yvonne Montana Unavailable Dennis Temple MBBS Unavailable Gabriela Barnhart TEST DESIGNER Unavailable Cj Meyer DO Primary Care Provider Encounter Details Date Type Department Care Team (Late st Contact Info) Description 05/14/2022 Transcribe Orders [facility] 30 [place] [address] Marlene Harden NP 70 [place], [place] [id number] Social History Tobacco Use Types Packs/Day Years [...] AM EST Appointment [facility] [address] [place] [address] Conner Sneed MD 10 [facility] 2nd [place] [address] [email or web address] 05/14/2025 1:00 PM EST Office Visit [facility] 22 [facility] 3rd Floor, [address] [place] [address] Rehan Landaverde MD 50 [place] [address] 09/13/2025 9:30 AM EDT Office Visit [facility] 10 [facility] [place] [address] Conner Sneed MD [address] [address] [email or web address] Scheduled Procedures Name Priority Associated Diagnoses Date/Ti me PA MONITOR INSERTION IN WEB MERCHANT Systolic congestive heart failure, unspecified HF chronicity [...] documented as of this encounter Care Teams Die Sinker Apprentice Relationship Specialty Start Date End Date Marlene Harden NP 70 [place] [address] PCP - General Family Medicine 01/10/22 08/07/24 Cj Meyer DO 70 [place] [address] PCP - General Internal Medicine 08/08/24 Yue Rodrigez RN [address] [place] [address] [email or web address] [facility] Motor Assembly Supervisor 02/21/22 06/09/23 Jennifer Dash LCSW [address] [place] [address] [facility] Social Work 02/01/23 02/11/23 Yvonne Montana [address] [place] [address] [email or web address] [facility] Community Health Worker 02/25/23 06/09/23 Dennis Temple MBBS [address] [place] [address] [email or web address] Primary Oncologist Hematology and Oncology 04/02/23 Gabriela Barnhart CNP [address] [place] [address] [email or web address] Nurse Practitioner Medical Oncology 01/16/24 documented as of this encounter Additional Source Comments The information contained in this document represents components of the legal health record. It is not the complete legal health record.[facility]
--- OUTSIDE RECORDS SUMMARY | 2025-04-08 05:30 | XMS_ITS | Encounter Summary ---
Author Organization [facility] Address [address] [place] [address] Phone Care Team Providers Care Research Associate Name Role Phone Temple, Ahmastu Mccann MBBS Unavailable Pack, Gabriela COMMERCIAL GREEN BUILDING DESIGNER Unavailable Cj Meyer DO Primary Care Provider [phone] Encounter Details Date Type Department Care Team (Late st Contact Info) Description 08/30/2024 Procedure Pass [facility], Ct Scan - [facility] 30 [place] [address] Social History Tobacco Use Types Packs/Day Years [...] AM EST Appointment [facility] 30 [place] [address] Conner Sneed MD [address] [address] [email or web address] 05/14/2025 1:00 PM EST Office Visit [facility] [address] [facility] 3[address], [address] [place] [address] Rehan Landaverde MD 50 [place] [address] 09/13/2025 9:30 AM EDT Office Visit [facility] 10 [place] [address] Conner Sneed MD 10 [facility] 2nd [place] [address] [email or web address] Scheduled Procedures Name Priority Associated Diagnoses Date/Ti me PA MONITOR INSERTION IN GARAGE ATTENDANT Systolic congestive heart failure, unspecified HF chronicity documented as of this encounter Visit Diagnoses Not on filedocumented in this encounter Additional Health Concerns Infection Onset Date Last Indicated Resolved Time CoV-Risk Comment:Per note documentation 08/29/2024 08/29/2024 7:27 AM EST Assessment Noted Time PHQ-2 Depression Total Score: 2 03/28/20 22 11:32 AM EDT documented as of this encounter Care Teams Research Associate Relationship Specialty Start Date End Date Cj Meyer DO [address] [place] [address] PCP - General Internal Medicine 08/08/24 Dennis Temple MBBS [email or web address] .[email or web address] Primary Oncologist Hematology and Oncology 04/02/23 Gabriela Barnhart CNP 30 [place] [address] Nurse Practitioner Medical Oncology 01/16/24 documented as of this encounter Additional Source Comments The information contained in this document represents components of the legal health record. It is not the complete legal health record.[facility]
--- OUTSIDE RECORDS SUMMARY | 2025-04-08 05:30 | XMS_ITS | Encounter Summary ---
Author Organization [facility] Address [address] [facility] [address] [place] [address] Phone Care Team Providers Care Firer Bisque Kiln Name Role Phone Olegario Guy MD Primary Care Provider Marlene Harden NP Primary Care Provider [phone] Yue Rodrigez RN Unavailable Jennifer Dash BULL WHEEL WORKER Unavailable ndelabar Yvonne Montana Unavailable Dennis Temple MBBS Unavailable Gabriela Barnhart METAL FLOW COORDINATOR Unavailable Cj Meyer DO Primary Care Provider [phone] Reason for Referral * MRI/CAT Scan - Closed Specialty Diagnoses / Procedures Referred By Contflorentin t Referred To Contact Radiology Diagnoses Abnormal chest x-ray Procedures CT Chest Marlene Harden NP Phone: tel: Referral ID Status Reason Start Date Expiration Date Visits Re quested Visits Authorized [id number] Closed 01/05/2022 01/05/2023 1 1 Encounter Details Date Type Department Care Team (Latest Contact Info) Description 01/05/2022 Transcribe Orders Virtual Department 30 [place] [address] Marlene Harden NP 70 [place] [address] Abnormal chest x-ray (Primary Dx) Social History [...] AM EST Appointment [facility] 30 [place] [address] Conner Sneed MD [address] [address] [email or web address] 05/14/2025 1:00 PM EST Office Visit [facility] 22 [facility] 3rd Floor, [address] [place] [address] Rehan Landaverde MD [address] [place] [address] 09/13/2025 9:30 AM EDT Office Visit [facility] 10 [place] [address] Conner Sneed MD [address] [place] [address] [email or web address] Scheduled Procedures Name Priority Associated Diagnoses Date/Ti me PA MONITOR INSERTION IN AIRCONDITIONING ENGINEER Systolic congestive heart failure, unspecified HF [...] documented as of this encounter Care Teams Firer Bisque Kiln Relationship Specialty Start Date End Date Olegario Guy MD [address] [place] [address] [address] [place] [address] [email or web address] PCP - General Family Medicine 03/28/20 01/09/22 Marlene Harden NP 70 [place] [address] PCP - General Family Medicine 01/10/22 08/07/24 Cj Meyer DO 70 [place] [address] PCP - General Internal Medicine 08/08/24 Yue Rodrigez, RN [address] [place] [address] [email or web address] [facility] Casting Wheel Operator Helper 02/21/22 06/09/23 Jennifer Dash LCSW [address] [place] [address] [email or web address] [facility] Social Work 02/01/23 02/11/23 Yvonne Montana [address] [place] [address] [email or web address] [facility] Community Health Worker 02/25/23 06/09/23 Dennis Temple MBBS [address] [place] [address] [email or web address] Primary Oncologist Hematology and Oncology 04/02/23 Gabriela Barnhart CNP [address] [place] [address] [email or web address] Nurse Practitioner Medical Oncology 01/16/24 documented as of this encounter Additional Source Comments The information contained in this document represents components of the legal health record. It is not the complete legal health record.[facility]
--- OUTSIDE RECORDS SUMMARY | 2025-04-08 05:30 | XMS_ITS | Encounter Summary ---
Author Organization [facility] Address [address] [place] [address] Phone Care Team Providers Care Feedmobile Driver Name Role Phone Marlene Harden NP Primary Care Provider Yue Rodrigez RN Unavailable Jennifer Dash LEAD PROJECT ENGINEER Unavailable felisa Yvonne Montana Unavailable Dennis Temple MBBS Unavailable [phone] Gabriela Barnhart MANAGER COMMISSION Unavailable Cj Meyer DO Primary Care Provider Encounter Details Date Type Department Care Team (Late st Contact Info) Description 03/15/2022 Procedure Pass [facility], Ct Scan - [address] [address] Social History Tobacco Use Types Packs/Day Years [...] AM EST Appointment [facility] 30 [place] [address] Conner Sneed MD [address] [address] [email or web address] 05/14/2025 1:00 PM EST Office Visit [facility] 22 [facility] 3rd Floor, [address] [place] [address] Rehan Landaverde MD [address] [place] [address] 09/13/2025 9:30 AM EDT Office Visit [facility] 10 [place] [address] Conner Sneed MD [address] [place] [address] [email or web address] Scheduled Procedures Name Priority Associated Diagnoses Date/Ti me PA MONITOR INSERTION IN HEALTH SERVICES MANAGER Systolic congestive heart failure, unspecified HF [...] documented as of this encounter Care Teams Feedmobile Driver Relationship Specialty Start Date End Date Marlene Harden NP 70 [place] [address] PCP - General Family Medicine 01/10/22 08/07/24 Cj Meyer DO 70 [place] [address] PCP - General Internal Medicine 08/08/24 Yue Rodrigez, VENKATA [address] [place] [address] [facility] Acid Filler 02/21/22 06/09/23 Jennifer Dash LCSW [address] [place] [address] [facility] Social Work 02/01/23 02/11/23 Yvonne Montana [address] [place] [address] [facility] Community Health Worker 02/25/23 06/09/23 Dennis Temple MBBS [address] [place] [address] [email or web address] Primary Oncologist Hematology and Oncology 04/02/23 Gabriela Barnhart CNP [address] [place] [address] Nurse Practitioner Medical Oncology 01/16/24 documented as of this encounter Additional Source Comments The information contained in this document represents components of the legal health record. It is not the complete legal health record.[facility]
--- OUTSIDE RECORDS SUMMARY | 2025-04-08 05:30 | XMS_ITS | Encounter Summary ---
Author Organization [facility] Address [address] [facility] [address] [place] [address] Phone Care Team Providers Care Director Of Diversity And Inclusion Name Role Phone Marlene Harden NP Primary Care Provider [phone] Dennis Temple MBBS Unavailable Gabriela Barnhart SHOT BLASTER Unavailable Cj Meyer DO Primary Care Provider [phone] Reason for Referral * MRI/CAT Scan - Closed Specialty Diagnoses / Procedures Referred By Contflorentin t Referred To Contact Radiology Diagnoses Cigarette smoker Procedures CT Chest Lung Cancer Screening Initial Or Annual Marlene Harden NP Phone: tel: Referral ID Status Reason Start Date Expiration Date Visits Re quested Visits Authorized [id number] Closed 10/03/2023 10/02/2024 1 1 Encounter Details Date Type Department Care Team (Latest Contact Info) Description 10/03/2023 Transcribe Orders Virtual Department 30 [place] [address] Marlene Harden NP [address] [place], [place] [phone] Cigarette smoker (Primary Dx) Social History Tobacco [...] AM EST Appointment [facility] 30 [place] [address] Conner Sneed MD [address] [address] [email or web address] 05/14/2025 1:00 PM EST Office Visit [facility] [address] [place] [address] 3rd Floor, [address] [place] [address] Rehan Landaverde MD [address] [place] [address] 09/13/2025 9:30 AM EDT [facility], Allergy and Critical Care Medicine 10 [facility] [address] [place] [address] Conner Sneed MD 10 [facility] 2nd [place] [address] [email or web address] Scheduled Procedures Name Priority Associated Diagnoses Date/Ti sc PA MONITOR INSERTION IN EXECUTIVE VP Systolic congestive heart failure, unspecified HF chronicity [...] categories can be found at:[email or web address] Marlene Harden PLANT UTILITY PERSON IMG CT CHEST Final Result documented in [...] documented as of this encounter Care Teams Director Of Diversity And Inclusion Relationship Specialty Start Date End Date Marlene Harden NP 70 [place] [address] PCP - General Family Medicine 01/10/22 08/07/24 Cj Meyer DO 70 [place] [address] PCP - General Internal Medicine 08/08/24 Dennis Temple MBBS 70 [place] [address] [email or web address] Primary Oncologist Hematology and Oncology 04/02/23 Gabriela Barnhart CNP [address] [place] [address] [email or web address] Nurse Practitioner Medical Oncology 01/16/24 documented as of this encounter Additional Source Comments The information contained in this document represents components of the legal health record. It is not the complete legal health record.[facility]
--- OUTSIDE RECORDS SUMMARY | 2025-04-08 05:30 | XMS_ITS | Encounter Summary ---
Author Organization [facility] Address [address] [place] [address] Phone Care Team Providers Care Insurance Advisor Name Role Phone DereckMarlene Mook TOWER OBSERVER Primary Care Provider Dennis Temple MBBS Unavailable Gabriela Barnhart CARPET RENOVATOR Unavailable Cj Meyer DO Primary Care Provider [phone] Encounter Details Date Type Department Care Team (Late st Contact Info) Description 07/17/2024 Procedure Pass [facility] 30 [place] [address] Social History Tobacco Use Types Packs/Day Years [...] 07/17/2024 1:48 PM Sofy Harry, VENKATA * [place] Suicide Severity Rating Scale (Screener/Recent Self-Report) Question [...] AM EST Appointment [facility] 30 [place] [address] Conner Sneed MD [address] [address] [email or web address] 05/14/2025 1:00 PM EST Office Visit [facility] 22 [facility] 3rd Floor, [address] [place] [address] Rehan Landaverde MD [address] [place] [address] 09/13/2025 9:30 AM EDT Office Visit [facility] 10 [place] [address] Conner Sneed MD [address] [place] [address] [email or web address] Scheduled Procedures Name Priority Associated Diagnoses Date/Ti wv PA MONITOR INSERTION IN FLATWORK WASHER Systolic congestive heart failure, unspecified HF chronicity [...] as of this encounter Care Teams Insurance Advisor Relationship Specialty Start Date End Date Marlene Harden NP 70 [place] [address] PCP - General Family Medicine 01/10/22 08/07/24 Cj Meyer DO 70 [place] [address] PCP - General Internal Medicine 08/08/24 Dennis Temple MBBS 70 [place] [address] [email or web address] Primary Oncologist Hematology and Oncology 04/02/23 Gabriela Barnhart CNP [address] [place] [address] [email or web address] Nurse Practitioner Medical Oncology 01/16/24 documented as of this encounter Additional Source Comments The information contained in this document represents components of the legal health record. It is not the complete legal health record.[facility]
--- OUTSIDE RECORDS SUMMARY | 2025-04-08 05:30 | XMS_ITS | Encounter Summary ---
Author Organization [facility] Address [address] [place] [address] Phone Care Team Providers Care Procedure Analyst Name Role Phone Cassie Hardensy Mook RESTAURANT ASSOCIATE Primary Care Provider Yue Rodrigez RN Unavailable Jennifer Dash LAB SUPPORT TECH Unavailable felisa Yvonne Montana Unavailable Dennis Temple MBBS Unavailable [phone] Gabriela Barnhart TAX PROFESSIONAL Unavailable Cj Meyer DO Primary Care Provider [phone] Encounter Details Date Type Department Care Team (Late st Contact Info) Description 12/13/2022 Procedure Pass [facility], Ct Scan - [address] [address] Social History Tobacco Use Types Packs/Day Years [...] AM EST Appointment [facility] 30 [place] [address] Conner Sneed MD [address] [place] [address] [email or web address] 05/14/2025 1:00 PM EST Office Visit [facility] 22 [facility] 3rd Floor, [address] [place] [address] Rehan Landaverde MD [address] [place] [address] 09/13/2025 9:30 AM EDT Office Visit [facility] 10 [place] [address] Conner Sneed MD [address] [place] [address] [email or web address] Scheduled Procedures Name Priority Associated Diagnoses Date/Ti me PA MONITOR INSERTION IN MERCHANDISE DISPLAYER Systolic congestive heart failure, unspecified HF chronicity [...] documented as of this encounter Care Teams Procedure Analyst Relationship Specialty Start Date End Date Marlene Harden NP 70 [place] [address] PCP - General Family Medicine 01/10/22 08/07/24 Cj Meyer DO 70 [place] [address] PCP - General Internal Medicine 08/08/24 Yue Rodrigez, VENKATA [address] [place] [address] [facility] Chemical Process Project Engineer 02/21/22 06/09/23 Jennifer Dash LCSW [address] [place] [address] [facility] Social Work 02/01/23 02/11/23 Yvonne Montana [address] [place] [address] [facility] Community Health Worker 02/25/23 06/09/23 Dennis Temple MBBS [address] [place] [address] [email or web address] Primary Oncologist Hematology and Oncology 04/02/23 Gabriela Barnhart CNP 30 [place] [address] (work) [email or web address] Nurse Practitioner Medical Oncology 01/16/24 documented as of this encounter Additional Source Comments The information contained in this document represents components of the legal health record. It is not the complete legal health record.[facility]
--- OUTSIDE RECORDS SUMMARY | 2025-04-08 05:30 | XMS_ITS | Encounter Summary ---
Author Organization [facility] Address [address] [place] [address] Phone Care Team Providers Care Business Asst Name Role Phone Marlene Harden DEVELOPMENT REP Primary Care Provider Yue Rodrigez RN Unavailable Yvonne Montana Unavailable [email or web address] Dennis Temple MBBS Unavailable [phone] Gabriela Barnhart PRODUCTION HONING MACHINE OPERATOR Unavailable Cj Meyer DO Primary Care Provider [phone] Encounter Details Date Type Department Care Team (Late st Contact Info) Description 03/03/2023 Procedure Pass [facility], Ct Scan - [address] [address] Social History Tobacco Use Types Packs/Day Years [...] 3:07 PM EDT Alycia Mahajan RN * [place] Suicide Severity Rating Scale (Screener/Recent Self-Report) Question [...] AM EST Appointment [facility] 30 [place] [address] Conner Sneed MD [address] [place] [address] 2nd [place] [address] [email or web address] 05/14/2025 1:00 PM EST Office Visit [facility] [address] [place] [address] 3rd Floor, [address] [place] [address] Rehan Landaverde MD 50 [place] [address] 09/13/2025 9:30 AM EDT Office Visit [facility] 10 [place] [address] Conner Sneed MD [address] [place] [address] 2[address] [place] [address] [email or web address] Scheduled Procedures Name Priority Associated Diagnoses Date/Ti me PA MONITOR INSERTION IN ELECTROSTATIC POWDER COATING TECHNICIAN Systolic congestive heart failure, unspecified HF [...] documented as of this encounter Care Teams Business Asst Relationship Specialty Start Date End Date Marlene Harden NP 70 [place], [place] PCP - General Family Medicine 01/10/22 08/07/24 Cj Meyer DO 70 [place], [place] PCP - General Internal Medicine 08/08/24 Yue Rodrigez, VENKATA [address] [place] [address] [facility] 02/21/22 06/09/23 Yvonne Montana [address] [place] [address] [facility] Community Health Worker 02/25/23 06/09/23 Dennis Temple MBBS [address] [place] [address] [email or web address] Primary Oncologist Hematology and Oncology 04/02/23 Gabriela Barnhart CNP [address] [place] [address] [email or web address] Nurse Practitioner Medical Oncology 01/16/24 documented as of this encounter Additional Source Comments The information contained in this document represents components of the legal health record. It is not the complete legal health record.[facility]
[2025-04-08 06:18] LABS: Anion Gap 15 (12-20); Blood Urea Nitrogen 21 mg/dL (9-16); Calcium 9.0 mg/dL (8.4-10.2); Carbon Dioxide 25 mmol/L (22-29); Chloride 103 mmol/L (96-108); Estimated Glomerular Filt Rate > 60; Potassium 4.7 mmol/L (3.3-5.1); Sodium 138 mmol/L (135-145)
== END 2025-04-08 05:27 | disposition home or self-care (01) ==
LOC: HO.MMNH1L 05:26
PROVIDERS: Visit Provider Physician Assistant Medical
DX: Z13.89 Encounter for screening for other disorder (principal)
CPT/HCPCS: 36415; 80048

== ENCOUNTER 2025-04-12 06:36 | Outpatient (REF) | payer MEDICARE, SELFPAY ==
[2025-04-12 06:31] LABS: MANUAL DIFF FLAG NO
--- OUTSIDE RECORDS SUMMARY | 2025-04-12 06:38 | XMS_ITS | Encounter Summary ---
Author Organization [facility] Address [address] [place] [address] Phone Care Team Providers Care Certified Procedural Coder Name Role Phone Dereck Marlene Delvalle ORTHODONTIST SMALL BUSINESS OWNER Primary Care Provider [phone] Dennis Temple MBBS Unavailable [phone] Gabriela Barnhart FLAT LOCKER Unavailable Cj Meyer DO Primary Care Provider [phone] Encounter Details Date Type Department Care Team (Late st Contact Info) Description 07/18/2024 Procedure Pass [facility] Emergency Department, [facility] [address] [place] [address] Social History Tobacco Use Types [...] AM EST Appointment [facility] 30 [place] [address] Conner Sneed MD [address] [place] [address] [email or web address] 05/14/2025 1:00 PM EST Office Visit [facility] [address] 3rd Floor, [address] [place] [address] Rehan Landaverde MD 50 [place] [address] 09/13/2025 9:30 AM EDT Office Visit [facility] 10 [facility] [place] [address] Conner Sneed MD 10 [facility] 2nd [place] [address] [email or web address] Scheduled Procedures Name Priority Associated Diagnoses Date/Ti me PA MONITOR INSERTION IN PLAN MANAGER Systolic congestive heart failure, unspecified HF [...] documented as of this encounter Care Teams Certified Procedural Coder Relationship Specialty Start Date End Date Marlene Harden NP 70 [place] [address] PCP - General Family Medicine 01/10/22 08/07/24 Cj Meyer DO 70 [place] [address] PCP - General Internal Medicine 08/08/24 Dennis Temple MBBS [address] [place] [address] [email or web address] .[email or web address] Primary Oncologist Hematology and Oncology 04/02/23 Gabriela Barnhart CNP [address] [place] [address] [email or web address] Nurse Practitioner Medical Oncology 01/16/24 documented as of this encounter Additional Source Comments The information contained in this document represents components of the legal health record. It is not the complete legal health record.[facility]
--- OUTSIDE RECORDS SUMMARY | 2025-04-12 06:38 | XMS_ITS | Encounter Summary ---
Author Organization [facility] Address [address] [place] [address] Phone Care Team Providers Care Electric Motor Winders Assembler Name Role Phone Cassie Hardensy Mook JIGGER MACHINE OPERATOR Primary Care Provider [phone] Yue Rodrigez RN Unavailable Jennifer Dash DRIER ATTENDANT Unavailable felisa Yvonne Montana Unavailable Dennis Temple MBBS Unavailable [phone] Gabriela Barnhart WORKFORCE STAFFING ADVISOR Unavailable Cj Meyer DO Primary Care Provider [phone] Encounter Details Date Type Department Care Team (Late st Contact Info) Description 12/13/2022 Procedure Pass [facility], Ct Scan - [address] [address] Social History Tobacco Use Types Packs/Day Years [...] you interested in more education? Not on corneilus e 11/01/2022 Are you concerned about learning? [...] AM EST Appointment [facility] 30 [place] [address] Conner Sneed MD [address] [place] [address] [email or web address] 05/14/2025 1:00 PM EST Office Visit [facility] 22 [facility] 3rd Floor, [address] [place] [address] Rehan Landaverde MD [address] [place] [address] 09/13/2025 9:30 AM EDT Office Visit [facility] 10 [place] [address] Conner Sneed MD [address] [place] [address] [email or web address] Scheduled Procedures Name Priority Associated Diagnoses Date/Ti me PA MONITOR INSERTION IN DEVOPS Systolic congestive heart failure, unspecified HF chronicity [...] documented as of this encounter Care Teams Electric Motor Winders Assembler Relationship Specialty Start Date End Date Marlene Harden NP 70 [place] [address] PCP - General Family Medicine 01/10/22 08/07/24 Cj Meyer DO 70 [place] [address] PCP - General Internal Medicine 08/08/24 Yue Rodrigez, VENKATA [address] [place] [address] [facility] Engagement Lead 02/21/22 06/09/23 Jennifer Dash LCSW [address] [place] [address] [facility] Social Work 02/01/23 02/11/23 Yvonne Montana [address] [place] [address] [facility] Community Health Worker 02/25/23 06/09/23 Dennis Temple MBBS [address] [place] [address] [email or web address] Primary Oncologist Hematology and Oncology 04/02/23 Gabriela Barnhart CNP 30 [place] [address] (work) [email or web address] Nurse Practitioner Medical Oncology 01/16/24 documented as of this encounter Additional Source Comments The information contained in this document represents components of the legal health record. It is not the complete legal health record.[facility]
--- OUTSIDE RECORDS SUMMARY | 2025-04-12 06:38 | XMS_ITS | Encounter Summary ---
Author Organization [facility] Address [address] [facility] [address] [place] [address] Phone Care Team Providers Care Blasting Entryman Name Role Phone Marlene Harden POSTAL WORKER Primary Care Provider Yue Rodrigez RN Unavailable Jennifer Dash CONCRETE PIPE MAKER Unavailable felisa Yvonne Montana Unavailable [email or web address] Dennis Temple MBBS Unavailable [phone] Gabriela Barnhart OPHTHALMIC MEDICAL TECHNICIAN Unavailable Cj Meyer DO Primary Care Provider [phone] Encounter Details Date Type Department Care Team (Late st Contact Info) Description 09/03/2022 Procedure Pass [facility], Ct Scan - [address] [address] Social History Tobacco Use Types Packs/Day Years [...] AM EST Appointment [facility] [address] [place] [address] Conner Sneed MD 10 [facility] 2nd [place] [address] [email or web address] 05/14/2025 1:00 PM EST Office Visit [facility] [address] [facility] 3rd Floor, [address] [place] [address] Rehan Landaverde MD 50 [place] [address] 09/13/2025 9:30 AM EDT Office Visit [facility] 10 [facility] [place] [address] Conner Sneed MD [address] [address] [email or web address] Scheduled Procedures Name Priority Associated Diagnoses Date/Ti me PA MONITOR INSERTION IN DIAGNOSTIC TECH Systolic congestive heart failure, unspecified HF chronicity [...] documented as of this encounter Care Teams Blasting Entryman Relationship Specialty Start Date End Date Marlene Harden NP 70 [place] [address] PCP - General Family Medicine 01/10/22 08/07/24 Cj Meyer DO 70 [place] [address] PCP - General Internal Medicine 08/08/24 Yue Rodrigez, VENKATA [address] [place] [address] [facility] Copier Field Service Technician 02/21/22 06/09/23 Jennifer Dash LCSW [address] [place] [address] [facility] Social Work 02/01/23 02/11/23 Yvonne Montana [address] [place] [address] [facility] Community Health Worker 02/25/23 06/09/23 Dennis Temple MBBS [address] [place] [address] [email or web address] Primary Oncologist Hematology and Oncology 04/02/23 Gabriela Barnhart CNP [address] [place] [address] Nurse Practitioner Medical Oncology 01/16/24 documented as of this encounter Additional Source Comments The information contained in this document represents components of the legal health record. It is not the complete legal health record.[facility]
--- OUTSIDE RECORDS SUMMARY | 2025-04-12 06:38 | XMS_ITS | Encounter Summary ---
Author Organization [facility] Address [address] [place] [address] Phone Care Team Providers Care Driver'S License Examiner Name Role Phone WindyAlexanderstu Mccann MBBS Unavailable [phone] Pack, Gabriela MASTER PRINTER Unavailable Cj Meyer DO Primary Care Provider [phone] Encounter Details Date Type Department Care Team (Late st Contact Info) Description 08/08/2024 Procedure Pass [facility], Ct Scan - [facility] 30 [place] [address] Social History Tobacco Use Types Packs/Day Years [...] 3:25 PM Maria E Timmons RN * [place] Suicide Severity Rating Scale (Screener/Recent Self-Report) Question [...] AM EST Appointment [facility] 30 [place] [address] Conner Sneed MD [address] [place] [address] [email or web address] 05/14/2025 1:00 PM EST Office Visit [facility] [address] [place] [address] 3rd Floor, [address] [place] [address] Rehan Landaverde MD 50 [place] [address] 09/13/2025 9:30 AM EDT Office Visit [facility] 10 [place] [address] Conner Sneed MD [address] [place] [address] [email or web address] Scheduled Procedures Name Priority Associated Diagnoses Date/Ti me PA MONITOR INSERTION IN MILK PICKUP TRUCK DRIVER Systolic congestive heart failure, unspecified HF [...] documented as of this encounter Care Teams Driver'S License Examiner Relationship Specialty Start Date End Date Betsy Cj [address] [place] [address] PCP - General Internal Medicine 08/08/24 Dennis Temple MBBS [email or web address] Primary Oncologist Hematology and Oncology 04/02/23 Gabriela Barnhart CNP [address] [place] [address] [email or web address] Nurse Practitioner Medical Oncology 01/16/24 documented as of this encounter Additional Source Comments The information contained in this document represents components of the legal health record. It is not the complete legal health record.[facility]
--- OUTSIDE RECORDS SUMMARY | 2025-04-12 06:38 | XMS_ITS | Encounter Summary ---
Author Organization [facility] Address [address] [place] [address] Phone Care Team Providers Care Director Of Communications Name Role Phone Dereck Marlene Mook MUNICIPAL FIREFIGHTER Primary Care Provider Dennis Temple MBBS Unavailable [phone] Gabriela Barnhart INSURANCE VERIFY REP Unavailable Cj Meyer DO Primary Care Provider Encounter Details Date Type Department Care Team (Late st Contact Info) Description 07/18/2024 Procedure Pass [facility], [address] [address] Social History Tobacco Use Types Packs/Day Years [...] AM EST Appointment [facility] 30 [place] [address] Conner Sneed MD [address] [place] [address] [email or web address] 05/14/2025 1:00 PM EST Office Visit [facility] [address] 3rd Floor, [address] [place] [address] Rehan Landaverde MD 50 [place] [address] 09/13/2025 9:30 AM EDT Office Visit [facility] 10 [facility] [place] [address] Conner Sneed MD 10 [facility] 2nd [place] [address] [email or web address] Scheduled Procedures Name Priority Associated Diagnoses Date/Ti me PA MONITOR INSERTION IN INTERNAL GRINDING MACHINE OPERATOR Systolic congestive heart failure, unspecified [...] of this encounter Care Teams Director Of Communications Relationship Specialty Start Date End Date Marlene Harden NP 70 [place] [address] PCP - General Family Medicine 01/10/22 08/07/24 Cj Meyer DO 70 [place] [address] PCP - General Internal Medicine 08/08/24 Dennis Temple MBBS [address] [place] [address] [email or web address] [email or web address] .[facility] Primary Oncologist Hematology and Oncology 04/02/23 Gabriela Barnhart CNP [address] [place] [address] [email or web address] Nurse Practitioner Medical Oncology 01/16/24 documented as of this encounter Additional Source Comments The information contained in this document represents components of the legal health record. It is not the complete legal health record.[facility]
--- OUTSIDE RECORDS SUMMARY | 2025-04-12 06:38 | XMS_ITS | Encounter Summary ---
Author Organization [facility] Address [address] [place] [address] Phone Care Team Providers Care Scoop Filler Name Role Phone DereckMarlene Mook MACHINE OPERATOR HOP WORKER Primary Care Provider [phone] Dennis Temple MBBS Unavailable Gabriela Barnhart FIELD SALES SPECIALIST Unavailable Cj Meyer DO Primary Care Provider Encounter Details Date Type Department Care Team (Late st Contact Info) Description 07/17/2024 Procedure Pass [facility] 30 [place] [address] Social History Tobacco Use Types Packs/Day Years [...] 07/17/2024 1:48 PM Sofy Harry, VENKATA * [place] Suicide Severity Rating Scale (Screener/Recent Self-Report) Question [...] AM EST Appointment [facility] 30 [place] [address] Conner Sneed MD [address] [address] [email or web address] 05/14/2025 1:00 PM EST Office Visit [facility] 22 [facility] 3rd Floor, [address] [place] [address] Rehan Landaverde MD [address] [place] [address] 09/13/2025 9:30 AM EDT Office Visit [facility] 10 [place] [address] Conner Sneed MD [address] [place] [address] [email or web address] Scheduled Procedures Name Priority Associated Diagnoses Date/Ti tx PA MONITOR INSERTION IN TOP CAGER Systolic congestive heart failure, unspecified HF chronicity [...] documented as of this encounter Care Teams Scoop Filler Relationship Specialty Start Date End Date Marlene aHrden NP 70 [place] [address] PCP - General Family Medicine 01/10/22 08/07/24 Cj Meyer DO 70 [place] [address] PCP - General Internal Medicine 08/08/24 Denins Temple MBBS 70 [place] [address] [email or web address] .[facility] Primary Oncologist Hematology and Oncology 04/02/23 Gabriela Barnhart CNP [address] [place] [address] [email or web address] Nurse Practitioner Medical Oncology 01/16/24 documented as of this encounter Additional Source Comments The information contained in this document represents components of the legal health record. It is not the complete legal health record.[facility]
--- OUTSIDE RECORDS SUMMARY | 2025-04-12 06:38 | XMS_ITS | Encounter Summary ---
Author Organization [facility] Address [address] [place] [address] Phone Care Team Providers Care Sheet Taker Name Role Phone Dereck Marlene Mook RESTORATION ECOLOGIST Primary Care Provider Dennis Temple MBBS Unavailable [phone] Gabriela Barnhart PROVIDER RELATIONS REPRESENTATIVE Unavailable Cj Meyer DO Primary Care Provider Encounter Details Date Type Department Care Team (Late st Contact Info) Description 07/28/2024 Procedure Pass [facility], Ct Scan - [address] [id number] Social History Tobacco Use Types Packs/Day Years [...] 9:13 PM EST Adrian Herrera, VENKATA * [place] Suicide Severity Rating Scale (Screener/Recent Self-Report) Question [...] AM EST Appointment [facility] 30 [place] [address] Conner Sneed MD [address] [place] [address] [email or web address] 05/14/2025 1:00 PM EST Office Visit [facility] 22 [facility] 3rd Floor, [address] [place] [address] Rehan Landaverde MD 50 [place] [address] 09/13/2025 9:30 AM EDT Office Visit [facility] 10 [place] [address] Conner Sneed MD [address] [place] [address] [email or web address] Scheduled Procedures Name Priority Associated Diagnoses Date/Ti me PA MONITOR INSERTION IN ED TEACHER Systolic congestive heart failure, unspecified HF [...] documented as of this encounter Care Teams Sheet Taker Relationship Specialty Start Date End Date Marlene Harden NP 70 [place] [address] PCP - General Family Medicine 01/10/22 08/07/24 Cj Meyer DO 70 [place] [address] PCP - General Internal Medicine 08/08/24 Dennis Temple MBBS 70 [place] [address] [email or web address] .[facility] Primary Oncologist Hematology and Oncology 04/02/23 Gabriela Barnhart CNP [address] [place] [address] [email or web address] Nurse Practitioner Medical Oncology 01/16/24 documented as of this encounter Additional Source Comments The information contained in this document represents components of the legal health record. It is not the complete legal health record.[facility]
--- OUTSIDE RECORDS SUMMARY | 2025-04-12 06:38 | XMS_ITS | Encounter Summary ---
Author Organization [facility] Address [address] [place] [address] Phone Care Team Providers Care Framing Manager Name Role Phone Cassie Hardensy Mook CHEMICAL PLANT WORKER Primary Care Provider Yue Rodrigez RN Unavailable Jennifer Dash DRAWBRIDGE TENDER Unavailable felisa Yvonne Montana Unavailable Dennis Temple MBBS Unavailable [phone] Gabriela Barnhart SOCIAL SERVICE DIRECTOR Unavailable Cj Meyer DO Primary Care Provider [phone] Encounter Details Date Type Department Care Team (Late st Contact Info) Description 12/13/2022 Procedure Pass [facility], Ct Scan - [address] [address] Social History Tobacco Use Types Packs/Day Years [...] AM EST Appointment [facility] 30 [place] [address] Conner Sneed MD [address] [place] [address] [email or web address] 05/14/2025 1:00 PM EST Office Visit [facility] [address] [facility] 3rd Floor, [address] [place] [address] Rehan Landaverde MD [address] [place] [address] 09/13/2025 9:30 AM EDT Office Visit [facility] 10 [place] [address] Conner Sneed MD [address] [place] [address] [email or web address] Scheduled Procedures Name Priority Associated Diagnoses Date/Ti me PA 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 FEEDER Systolic congestive heart failure, unspecified HF chronicity [...] documented as of this encounter Care Teams Framing Manager Relationship Specialty Start Date End Date Marlene Harden NP 70 [place] [address] PCP - General Family Medicine 01/10/22 08/07/24 Cj Meyer DO 70 [place] [address] PCP - General Internal Medicine 08/08/24 Yue Rodrigez, VENKATA [address] [place] [address] [facility] Commercial Loan Officer 02/21/22 06/09/23 Jennifer Dash LCSW [address] [place] [address] [facility] Social Work 02/01/23 02/11/23 Yvonne Montana [address] [place] [address] [facility] Community Health Worker 02/25/23 06/09/23 Dennis Temple MBBS [address] [place] [address] [email or web address] Primary Oncologist Hematology and Oncology 04/02/23 Gabriela Barnhart CNP 30 [place] [address] (work) [email or web address] Nurse Practitioner Medical Oncology 01/16/24 documented as of this encounter Additional Source Comments The information contained in this document represents components of the legal health record. It is not the complete legal health record.[facility]
--- OUTSIDE RECORDS SUMMARY | 2025-04-12 06:38 | XMS_ITS | Encounter Summary ---
Author Organization [facility] Address [address] [place] [address] Phone Care Team Providers Care Heel Sewer Name Role Phone Dereck Marlene Mook TAP PULLER Primary Care Provider Dennis Temple MBBS Unavailable [phone] Gabriela Barnhart SUPERVISOR KENNEL Unavailable Cj Meyer DO Primary Care Provider [phone] Encounter Details Date Type Department Care Team (Late st Contact Info) Description 07/18/2024 Procedure Pass [facility], Ct Scan - [address] [address] Social History Tobacco Use Types Packs/Day Years [...] AM EST Appointment [facility] 30 [place] [address] Conner Sneed MD [address] [place] [address] [email or web address] 05/14/2025 1:00 PM EST Office Visit [facility] [address] 3rd Floor, [address] [place] [address] Rehan Landaverde MD [address] [place] [address] 09/13/2025 9:30 AM EDT Office Visit [facility] 10 [facility] [place] [address] Conner Sneed MD 10 [facility] 2nd [place] [address] [email or web address] Scheduled Procedures Name Priority Associated Diagnoses Date/Ti me PA MONITOR INSERTION IN FOOD RUNNER Systolic congestive heart failure, unspecified HF chronicity [...] documented as of this encounter Care Teams Heel Sewer Relationship Specialty Start Date End Date Marlene Harden NP 70 [place] [address] PCP - General Family Medicine 01/10/22 08/07/24 Cj Meyer DO 70 [place] [address] PCP - General Internal Medicine 08/08/24 Dennis Temple MBBS [address] [place] [address] [email or web address] Primary Oncologist Hematology and Oncology 04/02/23 Gabriela Barnhart CNP [address] [place] [address] [email or web address] Nurse Practitioner Medical Oncology 01/16/24 documented as of this encounter Additional Source Comments The information contained in this document represents components of the legal health record. It is not the complete legal health record.[facility]
--- OUTSIDE RECORDS SUMMARY | 2025-04-12 06:39 | XMS_ITS | Encounter Summary ---
Author Organization [facility] Address [address] [place] [address] Phone Care Team Providers Care Seed Potato Cutter Name Role Phone Temple, Ahmastu Mccann MBBS Unavailable Pack, Gabriela JET WORKER Unavailable Cj Meyer DO Primary Care Provider [phone] Encounter Details Date Type Department Care Team (Late st Contact Info) Description 11/07/2024 Procedure Pass [facility], Ct Scan - [address] [address] Social History Tobacco Use Types Packs/Day Years [...] AM EST Appointment [facility] 30 [place] [address] Conner Sneed MD [address] [address] [email or web address] 05/14/2025 1:00 PM EST Office Visit [facility] [address] [facility] [address], [address] [place] [address] Rehan Landaverde MD 50 [place] [address] 09/13/2025 9:30 AM EDT Office Visit [facility] 10 [facility] [place] [address] Conner Sneed MD 10 [facility] 2nd [place] [address] [email or web address] Scheduled Procedures Name Priority Associated Diagnoses Date/Ti me PA MONITOR INSERTION IN HELICOPTER PILOT INSTRUCTOR Systolic congestive heart failure, unspecified HF chronicity documented as of this encounter Visit Diagnoses Not on filedocumented in this encounter Additional Health Concerns Assessment Noted Time PHQ-2 Depression Total Score: 2 03/28/20 22 11:32 AM EDT documented as of this encounter Care Teams Seed Potato Cutter Relationship Specialty Start Date End Date Cj Meyer DO [address] [place] [address] PCP - General Internal Medicine 08/08/24 Dennis Temple MBBS [email or web address] Primary Oncologist Hematology and Oncology 04/02/23 Gabriela Barnhart CNP 30 [place] [address] Nurse Practitioner Medical Oncology 01/16/24 documented as of this encounter Additional Source Comments The information contained in this document represents components of the legal health record. It is not the complete legal health record.[facility]
--- OUTSIDE RECORDS SUMMARY | 2025-04-12 06:39 | XMS_ITS | Encounter Summary ---
Author Organization [facility] Address [address] [facility] [place] [address] Phone Care Team Providers Care Audit Clerks Supervisor Name Role Phone Olegario Guy MD Primary Care Provider [phone] Marlene Harden NP Primary Care Provider [phone] Yue Rodrigez RN Unavailable Jennifer Dash FREIGHT SOLICITOR Unavailable [email or web address] Yvonne Montana Unavailable [email or web address] Dennis Temple MBBS Unavailable [phone] Gabriela Barnhart ROLL UP HELPER Unavailable Cj Meyer DO Primary Care Provider Encounter Details Date Type Department Care Team (Latest Contact Info) Description 03/28/2020 Transcribe Orders Virtual Department 30 [place] [address] Jie Wu NP [address] [place] [phone] [email or web address] Neck pain (Primary Dx) Social History Tobacco [...] AM EST Appointment [facility] 30 [place] [address] Conner Sneed MD [address] [address] [email or web address] 05/14/2025 1:00 PM EST Office Visit [facility] [address] [facility] 3rd Floor, [address] [place] [address] Rehan Landaverde MD [address] [place] [address] 09/13/2025 9:30 AM EDT Office Visit [facility] 10 [facility] [place] [address] Conner Sneed MD [address] [place] [address] [email or web address] Scheduled Procedures Name Priority Associated Diagnoses Date/Ti me PA MONITOR INSERTION IN FLAT LOCK OPERATOR Systolic congestive heart failure, unspecified HF [...] stable. No evidence of instability. POS - [id number] Narrative 04/01/2020 9:03 AM EDT HISTORY: Left [...] is stable. No evidence ofinstability. POS - [id number] Jie Wu CHEMICAL SPRAYER IMG XR SPINE Final Result documented in [...] documented as of this encounter Care Teams Audit Clerks Supervisor Relationship Specialty Start Date End Date Olegario Guy MD [address] [facility] [address] [place] [address] [email or web address] PCP - General Family Medicine 03/28/20 01/09/22 Marlene Harden, CHEMICAL SPRAYER 70 [place] [address] PCP - General Family Medicine 01/10/22 08/07/24 Cj Meyer DO [address] [place] [address] PCP - General Internal Medicine 08/08/24 Yue Rodrigez, VENKATA [address] [place] [address] [facility]der 02/21/22 06/09/23 Jennifer Dash LCSW [address] [place] [address] [facility] Social Work 02/01/23 02/11/23 Yvonne Montana [address] [place] [address] [email or web address] [facility] Community Health Worker 02/25/23 06/09/23 Dennis Temple MBBS [address] [place] [address] [email or web address] Primary Oncologist Hematology and Oncology 04/02/23 Gabriela Barnhart CNP [address] [place] [address] Nurse Practitioner Medical Oncology 01/16/24 documented as of this encounter Additional Source Comments The information contained in this document represents components of the legal health record. It is not the complete legal health record.[facility]
--- OUTSIDE RECORDS SUMMARY | 2025-04-12 06:39 | XMS_ITS | Encounter Summary ---
Author Organization [facility] Address [address] [facility] [address] [place] [address] Phone Care Team Providers Care Circulation Librarian Name Role Phone Olegario Guy MD Primary Care Provider [phone] Marlene Harden NP Primary Care Provider [phone] Yue Rodrigez RN Unavailable Jennifer Dash PHYSICALLY IMPAIRED TEACHER Unavailable ndelabar Yvonne Montana Unavailable Dennis Temple MBBS Unavailable Garbiela Barnhart [employer]ER [employer] Unavailable Cj Meyer DO Primary Care Provider Encounter Details Date Type Department Care Team (Late st Contact Info) Description 03/28/2020 Procedure Pass [facility], [address] [address] Social History Tobacco Use Types Packs/Day Years [...] AM EST Appointment [facility]FT Lab 30 [place] [address] Conner Sneed MD 10 [facility] 2nd [place] [address] [email or web address] 05/14/2025 1:00 PM EST Office Visit [facility] [address] [facility] 3rd Floor, [address] [place] [address] Rehan Landaverde MD [address] [place] [address] 09/13/2025 9:30 AM EDT Office Visit [facility] 10 [place] [address] Conner Sneed MD [address] [place] [address] [email or web address] Scheduled Procedures Name Priority Associated Diagnoses Date/Ti me PA MONITOR INSERTION IN MALT HOUSE SUPERVISOR Systolic congestive heart failure, unspecified HF [...] documented as of this encounter Care Teams Circulation Librarian Relationship Specialty Start Date End Date Olegario Guy MD 230 [facility] [address] [place] [address] [email or web address] PCP - General Family Medicine 03/28/20 01/09/22 Marlene Harden NP 70 [place], [place] PCP - General Family Medicine 01/10/22 08/07/24 Cj Meyer DO [address] [place] [address] PCP - General Internal Medicine 08/08/24 Yue Rodrigez, RN [address] [place] [address] [facility] Assistant Grocery Store Manager 02/21/22 06/09/23 Jennifer Dash LCSW [address] [place] [address] [facility] Social Work 02/01/23 02/11/23 Yvonne Montana [address] [place] [address] [facility] Community Health Worker 02/25/23 06/09/23 Dennis Temple MBBS [address] [place] [address] [email or web address] Primary Oncologist Hematology and Oncology 04/02/23 Gabriela Barnhart, TEACHER [employer] [address] [place] [address] [email or web address] Nurse Practitioner Medical Oncology 01/16/24 documented as of this encounter Additional Source Comments The information contained in this document represents components of the legal health record. It is not the complete legal health record.[facility]
--- OUTSIDE RECORDS SUMMARY | 2025-04-12 06:39 | XMS_ITS | Encounter Summary ---
Author Organization [facility] Address [address] [place] [address] Phone Care Team Providers Care Beader Tender Name Role Phone Marlene Harden ASSOCIATE DIRECTOR OF BIOSTATISTICS Primary Care Provider [phone] Yue Rodrigez RN Unavailable Yvonne Montana Unavailable [email or web address] Dennis Temple MBBS Unavailable [phone] Gabriela Barnhart POLYSOMNOGRAPHY TECHNICIAN Unavailable Cj Meyer DO Primary Care Provider [phone] Encounter Details Date Type Department Care Team (Late st Contact Info) Description 03/03/2023 Procedure Pass [facility], Ct Scan - [address] [address] Social History Tobacco Use Types Packs/Day Years [...] 3:07 PM EDT Alycia Mahajan RN * [place] Suicide Severity Rating Scale (Screener/Recent Self-Report) Question [...] AM EST Appointment [facility] Lab 30 [place] [address] Conner Sneed MD [address] [place] [address] 2nd [place] [address] [email or web address] 05/14/2025 1:00 PM EST Office Visit [facility] [address] [place] [address] 3rd Floor, [address] [place] [address] Rehan Landaverde MD 50 [place] [address] 09/13/2025 9:30 AM EDT Office Visit [facility] 10 [place] [address] Conner Sneed MD [address] [place] [address] 2nd [place] [address] [email or web address] Scheduled Procedures Name Priority Associated Diagnoses Date/Ti me PA MONITOR INSERTION IN CONCRETE BUCKET UNLOADER Systolic congestive heart failure, unspecified HF chronicity [...] documented as of this encounter Care Teams Beader Tender Relationship Specialty Start Date End Date Marlene Harden NP 70 [place], [place] PCP - General Family Medicine 01/10/22 08/07/24 Cj Meyer DO 70 [place], [place] PCP - General Internal Medicine 08/08/24 Yue Rodrigez, VENKATA [address] [place] [address] [facility] 02/21/22 06/09/23 Yvonne Montana [address] [place] [address] [facility] Community Health Worker 02/25/23 06/09/23 Dennis Temple MBBS [address] [place] [address] [email or web address] Primary Oncologist Hematology and Oncology 04/02/23 Gabriela Barnhart CNP [address] [place] [address] [email or web address] Nurse Practitioner Medical Oncology 01/16/24 documented as of this encounter Additional Source Comments The information contained in this document represents components of the legal health record. It is not the complete legal health record.[facility]
--- OUTSIDE RECORDS SUMMARY | 2025-04-12 06:39 | XMS_ITS | Encounter Summary ---
Author Organization [facility] Address [address] [facility] [address] [place] [address] Phone Care Team Providers Care Flaker Tender Name Role Phone Olegario Guy MD Primary Care Provider Marlene Harden NP Primary Care Provider [phone] Yue Rodrigez RN Unavailable Jennifer Dash FRONT OFFICE REPRESENTATIVE Unavailable ndelabar Yvonne Montana Unavailable Dennis Temple MBBS Unavailable Gabriela Barnhart LODGING MANAGER Unavailable Cj Meyer DO Primary Care Provider [phone] Reason for Referral * MRI/CAT Scan - Closed Specialty Diagnoses / Procedures Referred By Contflorentin t Referred To Contact Radiology Diagnoses Abnormal chest x-ray Procedures CT Chest Marlene Harden NP Phone: tel: Referral ID Status Reason Start Date Expiration Date Visits Re quested Visits Authorized [id number] Closed 01/05/2022 01/05/2023 1 1 Encounter Details Date Type Department Care Team (Latest Contact Info) Description 01/05/2022 Transcribe Orders Virtual Department 30 [place] [address] Marlene Harden NP [address] [place] [address] Abnormal chest x-ray (Primary Dx) Social History [...] AM EST Appointment [facility] 30 [place] [address] Conner Sneed MD [address] [address] [email or web address] 05/14/2025 1:00 PM EST Office Visit [facility] 22 [facility] 3rd Floor, [address] [place] [address] Rehan Landaverde MD [address] [place] [address] 09/13/2025 9:30 AM EDT Office Visit [facility] 10 [place] [address] Conner Sneed MD [address] [place] [address] [email or web address] Scheduled Procedures Name Priority Associated Diagnoses Date/Ti me PA MONITOR INSERTION IN PLANT OPERATIONS VICE PRESIDENT Systolic congestive heart failure, unspecified HF chronicity [...] documented as of this encounter Care Teams Flaker Tender Relationship Specialty Start Date End Date Olegario Guy MD [address] [place] [address] [address] [place] [address] [email or web address] PCP - General Family Medicine 03/28/20 01/09/22 Marlene Harden NP 70 [place] [address] PCP - General Family Medicine 01/10/22 08/07/24 Cj Meyer DO 70 [place] [address] PCP - General Internal Medicine 08/08/24 Yue Rodrigez, RN [address] [place] [address] [email or web address] [facility] Tie Carrier 02/21/22 06/09/23 Jennifer Dash LCSW [address] [place] [address] [email or web address] [facility] Social Work 02/01/23 02/11/23 Yvonne Montana [address] [place] [address] [email or web address] [facility] Community Health Worker 02/25/23 06/09/23 Dennis Temple MBBS [address] [place] [address] [email or web address] Primary Oncologist Hematology and Oncology 04/02/23 Gabriela Barnhart CNP [address] [place] [address] [email or web address] Nurse Practitioner Medical Oncology 01/16/24 documented as of this encounter Additional Source Comments The information contained in this document represents components of the legal health record. It is not the complete legal health record.[facility]
--- OUTSIDE RECORDS SUMMARY | 2025-04-12 06:39 | XMS_ITS | Encounter Summary ---
Author Organization [facility] Address [address] [facility] [address] [place] [address] Phone Care Team Providers Care Glass Presser Name Role Phone Olegario Guy MD Primary Care Provider [phone] Marlene Harden NP Primary Care Provider [phone] Yue Rodrigez RN Unavailable Jennifer Dash BANKRUPTCY PARALEGAL Unavailable ndelabar Yvonne Montana Unavailable Dennis Temple MBBS Unavailable Gabriela Barnhart MEMBER SERVICES REPRESENTATIVE Unavailable Cj Meyer DO Primary Care Provider [phone] Encounter Details Date Type Department Care Team (Late st Contact Info) Description 01/05/2022 Procedure Pass [facility], Ct Scan - [facility] 30 [place] [address] Social History Tobacco Use Types Packs/Day Years [...] AM EST Appointment [facility] 30 [place] [address] Conner Sneed MD [address] [address] [email or web address] 05/14/2025 1:00 PM EST Office Visit [facility] 3[address], [address] [place] [address] Rehan Landaverde MD 50 [place] [address] 09/13/2025 9:30 AM EDT Office Visit [facility] 10 [facility] [place] [address] Conner Sneed MD [address] [address] [email or web address] Scheduled Procedures Name Priority Associated Diagnoses Date/Ti md PA MONITOR INSERTION IN CHAIR INSTALLER Systolic congestive heart failure, unspecified HF [...] documented as of this encounter Care Teams Glass Presser Relationship Specialty Start Date End Date Olegario Guy MD 230 [facility] [address] [place] [address] [email or web address] PCP - General Family Medicine 03/28/20 01/09/22 Marlene Harden NP 70 [place] [address] PCP - General Family Medicine 01/10/22 08/07/24 Cj Meyer DO [address] [place] [address] PCP - General Internal Medicine 08/08/24 Yue Rodrigez, VENKATA [address] [place] [address] [facility] Operations Project Manager 02/21/22 06/09/23 Jennifer Dash LCSW [address] [place] [address] [facility] Social Work 02/01/23 02/11/23 Yvonne Montana [address] [place] [address] [facility] Community Health Worker 02/25/23 06/09/23 Dennis Temple MBBS [address] [place] [address] [email or web address] Primary Oncologist Hematology and Oncology 04/02/23 Gabriela Barnhart CNP [address] [place] [address] Nurse Practitioner Medical Oncology 01/16/24 documented as of this encounter Additional Source Comments The information contained in this document represents components of the legal health record. It is not the complete legal health record.[facility]
--- OUTSIDE RECORDS SUMMARY | 2025-04-12 06:39 | XMS_ITS | Encounter Summary ---
Author Organization [facility] Address [address] [place] [address] Phone Care Team Providers Care Business Analyst Manager Name Role Phone Olegario Guy MD Primary Care Provider [phone] Marlene Harden NP Primary Care Provider [phone] Yue Rodrigez RN Unavailable Jennifer Dash MANAGER MEDICARE Unavailable [email or web address] Yvonne Montana Unavailable Dennis Temple MBBS Unavailable Gabriela Barnhart NAIL GALVANIZER Unavailable Cj Meyer DO Primary Care Provider [phone] Reason for Referral * MRI/CAT Scan - Closed Specialty Diagnoses / Procedures Referred By Contac t Referred To Contact Radiology Diagnoses Cervical radiculopathy Procedures MRI Cervical Spine Jie Wu NP Phone: tel: fax: [email or web address] Referral ID Status Reason Start Date Expiration Date Visits Re quested Visits Authorized [id number] Closed 03/21/2020 04/04/2020 1 1 Encounter Details Date Type Department Care Team (Latest Contact Info) Description 03/28/2020 Transcribe Orders [address] [address] Jie Wu NP 271 [place] [address] [email or web address] Cervical radiculopathy (Primary Dx) Social History Tobacco [...] AM EST Appointment [facility] 30 [place] [address] Conner Sneed MD [address] [place] [address] [email or web address] 05/14/2025 1:00 PM EST Office Visit [facility] [address] [facility] 3rd Floor, [address] [place] [address] Rehan Landavedre MD 50 [place] [address] 09/13/2025 9:30 AM EDT Office Visit [facility] 10 [facility] [place] [address] Conner Sneed MD [address] [address] [email or web address] Scheduled Procedures Name Priority Associated Diagnoses Date/Ti me PA MONITOR INSERTION IN TRAY SETTER Systolic congestive heart failure, unspecified HF chronicity [...] protrusionidentified. POS - [id number] us Jie Wu GUTTER MOUTH CUTTER IMG MR XSPECIALTY Final Result documented in [...] as of this encounter Care Teams Business Analyst Manager Relationship Specialty Start Date End Date Olegario Guy MD [address] [place] [address] [address] [place] [address] [email or web address] PCP - General Family Medicine 03/28/20 01/09/22 Marlene Harden NP 70 [place] [address] PCP - General Family Medicine 01/10/22 08/07/24 Cj Meyer DO [address] [place] [address] PCP - General Internal Medicine 08/08/24 Yue Rodirgez, VENKATA [address] [place] [address] [facility] Loan Services Professional 02/21/22 06/09/23 Jennifer Dash LCSW [address] [place] [address] [facility] Social Work 02/01/23 02/11/23 Yvonne Montana [address] [place] [address] [email or web address] [facility] Community Health Worker 02/25/23 06/09/23 Dennis Temple MBBS [address] [place] [address] [email or web address] Primary Oncologist Hematology and Oncology 04/02/23 Gabriela Barnhart CNP [address] [place] [address] [email or web address] Nurse Practitioner Medical Oncology 01/16/24 documented as of this encounter Additional Source Comments The information contained in this document represents components of the legal health record. It is not the complete legal health record.[facility]
--- OUTSIDE RECORDS SUMMARY | 2025-04-12 06:39 | XMS_ITS | Encounter Summary ---
Author Organization [facility] Address [address] [place] [address] Phone Care Team Providers Care Sand Cutter Operator Name Role Phone Temple, Ahmastu Mccann MBBS Unavailable Pack, Gabriela CURRICULUM CONSULTANT Unavailable Cj Meyer DO Primary Care Provider [phone] Encounter Details Date Type Department Care Team (Late st Contact Info) Description 08/30/2024 Procedure Pass [facility], Ct Scan - [facility] 30 [place] [address] Social History Tobacco Use Types Packs/Day Years [...] AM EST Appointment [facility] 30 [place] [address] Conner Sneed MD [address] [address] [email or web address] 05/14/2025 1:00 PM EST Office Visit [facility] [address] [facility] [address], [address] [place] [address] Rehan Landaverde MD 50 [place] [address] 09/13/2025 9:30 AM EDT Office Visit [facility] 10 [facility] [place] [address] Conner Sneed MD 10 [facility] 2nd [place] [address] [email or web address] Scheduled Procedures Name Priority Associated Diagnoses Date/Ti me PA MONITOR INSERTION IN BALLING HEAD TENDER Systolic congestive heart failure, unspecified HF chronicity documented as of this encounter Visit Diagnoses Not on filedocumented in this encounter Additional Health Concerns Infection Onset Date Last Indicated Resolved Time CoV-Risk Comment:Per note documentation 08/29/2024 08/29/2024 7:27 AM EST Assessment Noted Time PHQ-2 Depression Total Score: 2 03/28/20 22 11:32 AM EDT documented as of this encounter Care Teams Sand Cutter Operator Relationship Specialty Start Date End Date Cj Meyer DO [address] [place] [address] PCP - General Internal Medicine 08/08/24 Dennsi Temple MBBS [email or web address] Primary Oncologist Hematology and Oncology 04/02/23 Gabriela Barnhart CNP 30 [place] [address] Nurse Practitioner Medical Oncology 01/16/24 documented as of this encounter Additional Source Comments The information contained in this document represents components of the legal health record. It is not the complete legal health record.[facility]
--- OUTSIDE RECORDS SUMMARY | 2025-04-12 06:39 | XMS_ITS | Encounter Summary ---
Author Organization [facility] Address [address] [place] [address] Phone Care Team Providers Care Development Geologist Name Role Phone Temple, Ahmastu Mccann MBBS Unavailable Pack, Gabriela CONTACT LENS TECHNICIAN Unavailable Cj Meyer DO Primary Care Provider [phone] Encounter Details Date Type Department Care Team (Late st Contact Info) Description 08/30/2024 Procedure Pass [facility], Ct Scan - [facility] 30 [place] [address] Social History Tobacco Use Types Packs/Day Years [...] AM EST Appointment [facility] 30 [place] [address] Conner Sneed MD [address] [address] [email or web address] 05/14/2025 1:00 PM EST Office Visit [facility] [address] [facility] [address], [address] [place] [address] Rehan Landaverde MD 50 [place] [address] 09/13/2025 9:30 AM EDT Office Visit [facility] [address] [facility] [place] [place] [address] Conner Sneed MD 10 [facility] 2nd [place] [address] [email or web address] Scheduled Procedures Name Priority Associated Diagnoses Date/Ti me PA MONITOR INSERTION IN X RAY CONSULTANT Systolic congestive heart failure, unspecified HF chronicity documented as of this encounter Visit Diagnoses Not on filedocumented in this encounter Additional Health Concerns Infection Onset Date Last Indicated Resolved Time CoV-Risk Comment:Per note documentation 08/29/2024 08/29/2024 7:27 AM EST Assessment Noted Time PHQ-2 Depression Total Score: 2 03/28/20 22 11:32 AM EDT documented as of this encounter Care Teams Development Geologist Relationship Specialty Start Date End Date Cj Meyer DO [address] [place] [address] PCP - General Internal Medicine 08/08/24 Dennis Temple MBBS [email or web address] Primary Oncologist Hematology and Oncology 04/02/23 Gabriela Barnhart CNP 30 [place] [address] Nurse Practitioner Medical Oncology 01/16/24 documented as of this encounter Additional Source Comments The information contained in this document represents components of the legal health record. It is not the complete legal health record.[facility]
--- OUTSIDE RECORDS SUMMARY | 2025-04-12 06:39 | XMS_ITS | Clinical Summary ---
Author Organization [facility] Address [address] [place] [address] Care Team Providers Care Waterworks Operator Name Role Phone Marlene Harden NP Primary Care Provider [phone] Social History Tobacco Use Types Packs/Day Years [...] topic Insurance [facility] Plan Care Teams Waterworks Operator Relationship Specialty Start Date End Date Marlene Harden NP 70 [place] [address] PCP - General Nurse Practitioner 03/05/23
--- OUTSIDE RECORDS SUMMARY | 2025-04-12 06:39 | XMS_ITS | Encounter Summary ---
Author Organization [facility] Address [address] [place] [address] Phone Care Team Providers Care Doughmaker Name Role Phone Temple, Ahmastu Mccann MBBS Unavailable Pack, Gabriela FUEL SYSTEM MAINTENANCE WORKER Unavailable Cj Meyer DO Primary Care Provider [phone] Encounter Details Date Type Department Care Team (Late st Contact Info) Description 12/09/2024 Procedure Pass [facility], Ct Scan - [address] [address] Social History Tobacco Use Types Packs/Day Years [...] AM EST Appointment [facility] 30 [place] [address] Conner Sneed MD [address] [address] [email or web address] 05/14/2025 1:00 PM EST Office Visit [facility] [address] [facility] [address], [address] [place] [address] Rehan Landaverde MD 50 [place] [address] 09/13/2025 9:30 AM EDT Office Visit [facility] 10 [facility] [place] [address] Conner Sneed MD 10 [facility] 2nd [place] [address] [email or web address] Scheduled Procedures Name Priority Associated Diagnoses Date/Ti me PA MONITOR INSERTION IN UNLOADING CHECKER Systolic congestive heart failure, unspecified HF chronicity documented as of this encounter Visit Diagnoses Not on filedocumented in this encounter Additional Health Concerns Assessment Noted Time PHQ-2 Depression Total Score: 2 03/28/20 22 11:32 AM EDT documented as of this encounter Care Teams Doughmaker Relationship Specialty Start Date End Date Cj Meyer DO [address] [place] [address] PCP - General Internal Medicine 08/08/24 Dennis Temple MBBS [email or web address] Primary Oncologist Hematology and Oncology 04/02/23 Gabriela Barnhart CNP 30 [place] [address] Nurse Practitioner Medical Oncology 01/16/24 documented as of this encounter Additional Source Comments The information contained in this document represents components of the legal health record. It is not the complete legal health record.[facility]
--- OUTSIDE RECORDS SUMMARY | 2025-04-12 06:39 | XMS_ITS | Encounter Summary ---
Author Organization [facility] Address [address] [facility] [address] [place] [address] Phone Care Team Providers Care Freight And Passenger Agent Name Role Phone Olegario Guy MD Primary Care Provider [phone] Marlene Harden TABLE COVER FOLDER Primary Care Provider Yue Rodrigez RN Unavailable Jennifer Dash CAPABILITY LEAD Unavailable [email or web address] Yvonne Montana Unavailable Dennis Temple MBBS Unavailable [phone] Gabriela Barnhart MANAGER TELEMARKETING Unavailable Cj Meyer DO Primary Care Provider Encounter Details Date Type Department Care Team (Latest Contact Info) Description 01/02/2022 Transcribe Orders Virtual Department 30 [place] [address] Marlene Harden, CAM [address] [place], [place] [phone] Shortness of breath (Primary Dx); Dyspnea, unspecified [...] Info) Description 05/13/2025 9:30 AM EST Appointment [facility] PFT Lab 30 [place] [address] Conner Sneed MD [address] [address] [email or web address] 05/14/2025 1:00 PM EST Office Visit [facility] [address] [facility] [address], [address] [place] [address] Rehan Landaverde MD [address] [place] [address] 09/13/2025 9:30 AM EDT Office Visit [facility] Pulmonary, Allergy and Critical Care Medicine 10 [place] [address] Conner Sneed MD [address] [place] [address] [email or web address] Scheduled Procedures Name Priority Associated Diagnoses Date/Ti me PA MONITOR INSERTION IN DRYWALLER Systolic congestive heart failure, unspecified HF chronicity [...] criteria. Clinical and radiographic correlation advised. Result [facility] Marlene Harden NP PFT ORDERABLES [...] documented as of this encounter Care Teams Freight And Passenger Agent Relationship Specialty Start Date End Date Olegario Guy MD [address] [facility] [address] [place] [address] [email or web address] PCP - General Family Medicine 03/28/20 01/09/22 Marlene Harden TABLE COVER FOLDER 70 [place] [address] PCP - General Family Medicine 01/10/22 08/07/24 Cj Meyer DO [address] [place] [address] PCP - General Internal Medicine 08/08/24 Yue Rodrigez RN [address] [place] [address] [email or web address] [facility] Pie Filler 02/21/22 06/09/23 Jennifer Dash LCSW [address] [place] [address] [email or web address] [facility] Social Work 02/01/23 02/11/23 Yvonne Montana [address] [place] [address] [email or web address] [facility] Community Health Worker 02/25/23 06/09/23 Dennis Temple MBBS [address] [place] [address] [email or web address] Primary Oncologist Hematology and Oncology 04/02/23 Gabriela Barnhart CNP [address] [place] [address] [email or web address] Nurse Practitioner Medical Oncology 01/16/24 documented as of this encounter Additional Source Comments The information contained in this document represents components of the legal health record. It is not the complete legal health record.[facility]
--- OUTSIDE RECORDS SUMMARY | 2025-04-12 06:39 | XMS_ITS | Encounter Summary ---
Author Organization [facility] Address [address] [facility] [address] [place] [address] Phone Care Team Providers Care Master In Chancery Name Role Phone Marlene Harden NP Primary Care Provider [phone] Yue Rodrigez RN Unavailable Yvonne Montana Unavailable [email or web address] Dennis Temple MBBS Unavailable [phone] Gabriela Barnhart COMBINATION SAW OPERATOR Unavailable Cj Meyer DO Primary Care Provider [phone] Encounter Details Date Type Department Care Team (Late st Contact Info) Description 02/22/2023 Procedure Pass [facility] Endoscopy Admitting Dept Virtual Department 30 [place] [address] Social History Tobacco Use Types Packs/Day Years [...] AM EST Appointment [facility] 30 [place] [address] Conner Sneed MD [address] [place] [address] [email or web address] 05/14/2025 1:00 PM EST Office Visit [facility] [address] [facility] 3rd Floor, [address] [place] [address] Rehan Landaverde MD 50 [place] [address] 09/13/2025 9:30 AM EDT Office Visit [facility] 10 [place] [address] Conner Sneed MD [address] [place] [address] [email or web address] Scheduled Procedures Name Priority Associated Diagnoses Date/Ti me PA MONITOR INSERTION IN OUTBOARD MOTOR ASSEMBLER Systolic congestive heart failure, unspecified HF [...] documented as of this encounter Care Teams Master In Chancery Relationship Specialty Start Date End Date Marlene Harden NP 70 [place] [address] PCP - General Family Medicine 01/10/22 08/07/24 Cj Meyer DO 70 [place] [address] PCP - General Internal Medicine 08/08/24 Yue Rodrigez RN [address] [place] [address] [email or web address] Electrical Controls Designer 02/21/22 06/09/23 Yvonne Montana 10 [place] [address] [facility] Community Health Worker 02/25/23 06/09/23 Dennis Temple MBBS [address] [place] [address] [email or web address] Primary Oncologist Hematology and Oncology 04/02/23 Gabriela Barnhart CNP [address] [place] [address] Nurse Practitioner Medical Oncology 01/16/24 documented as of this encounter Additional Source Comments The information contained in this document represents components of the legal health record. It is not the complete legal health record.[facility]
--- OUTSIDE RECORDS SUMMARY | 2025-04-12 06:39 | XMS_ITS | Data Portability ---
Author Organization [facility], Main Office Address [address] [facility] [address] [place] [address] Care Team Providers Care Filing Or Registry Clerk Name Role Phone DENISE GONZALEZ Primary Care [...] Time Nontraumati c intraparenc hymal cerebral hemorrhage [id number] 03 Active 2024 Esa Rodrigues MD [address], [address], [place], [address], [facility] [facility] 5 11:08:30 Chronic obstructive pulmonary disease 22222200 Active 2024 Esa Rodrigues MD [address], [address], [place], [address], [facility] [place] [facility] 5 11:08:49 Dysphagia 05405588 Active 2024 Esa Rodrigues MD [address], [address], [place], [address], [facility] 5 11:09:20 Atrial fibrillatio n 16031569 Active 2024 Esa Rodrigues MD [address], [place], [address], [facility] 5 11:11:53 Coronary arterioscle rosis 17903076 Active 2024 Esa Rodrigues MD [address], [place], [address], [facility] 5 11:11:58 Alcohol dependence 13446721 Active 2024 Esa Rodrigues MD [address], [place], [address], [facility] 5 11:12:38 Tobacco user 650060043 Active 2024 Esa Rodrigues MD [address], [place], [address], [facility] 5 11:12:43 Essential hypertensio n 06685468 Active 2024 Esa Rodrigues MD [address], [place], [address], [facility] 5 11:12:48 Mixed hyperlipide micaela 554261396 Active 2024 Esa Rodrigues MD [address], [address], [place], [address], [facility] 5 11:12:56 Congestive heart failure 97103355 Active 2024 Esa Rodrigues MD [address], [address], [place], [address], [facility] 5 11:13:02 Chronic kidney disease stage 2 055776717 Active 2024 Letty Mehta MD [address], [place], [address], [facility] 5 15:24:10 Pain of knee region 0208898548 Active 2024 Letty Mehta MD [address] [place] [address], [address], [place], [address], [facility] 5 15:30:14 Problem Notes None recorded. Medical Equipment None Reported. Allergies Allergen ID Allergen Name Allergen Category Reaction Reaction Severity Criticality Documentation Date Start Date Code Code System Note Provider Name and Address Organization Details Recorded Time 33885 Product containin g penicilli n (product) medicatio n Not available Not available Not available 08/14/2024 22646 8001 SNOMED Esa Rodrigues MD [address] [place] [address], [address], [place], [address], [facility] 5 11:22:28 29692 shellfish derived food,medi cation Not available Not available Not available 08/14/2024 Esa Rodrigues MD [address] [place] [address], [address], [place], [address], [facility] 5 11:22:49 64713 prednison e medicatio n Not available Not available Not available 01/21/20252019 8640 RxNorm Letty Mehta MD [address] [place] [address], [address], [place], [address], [facility] 5 16:10:02 37826 scallop allergeni c extract food Not available Not available Not available 01/21/20252013 59761 6 RxNorm Other react ion(s ): short ness of shemar Mehta MD [address] [place] [address], [address], [place], [address], [facility] 5 16:10:04 51445 penicilla mine medicatio n Not available Not available Not available 01/21/20252013 7975 RxNorm Other react ion(s ): short ness of shemar Mehta MD [address] [place] [address], [address], [place], [address], [facility] 5 16:19:26 Vitals Date Recorded Body weight Heart rate Respiratory rate Body temperature Oxygen saturation Oxygen saturation in Arterial blood by Pulse oximetry Inhaled oxygen flow rate Systolic And Diastolic Provider Name and Address Organization Details Last Updated DateTime 5 25179.1 9 g 70 /min 18 /min 98.1 [degF] 96 % 96 % 2 L/min 143/74 mm[Hg] KIAN RODRIGUEZ CNP [address], [address], [place], [address], [facility] 5 09:55:08 Date Recorded Body weight Heart rate Respiratory rate Body temperature Oxygen saturation Oxygen saturation in Arterial blood by Pulse oximetry Inhaled oxygen flow rate Systolic And Diastolic Provider Name and Address Organization Details Last Updated DateTime 5 43900.7 g 58 /min 18 /min 98.1 [degF] 94 % 94 % 2 L/min 110/63 mm[Hg] KIAN RODRIGUEZ CNP [address], [place], [address], [facility] 5 09:37:59 Date Recorded Systolic And Diastolic Provider Name and Address Organization Details Last Updated DateTime 11/09/2024 135/64 mm[Hg] [facility] [address], [place], [address], [facility] 11/09/2024 11:23:22 Date Recorded Heart rate Systolic And Diastolic Provider Name and Address Organization Details Last Updated DateTime 11/11/2024 87 /min 116/67 mm[Hg] KIAN RODRIGUEZ CNP [address], [place], [address], [facility] 11/11/2024 10:11:22 Date Recorded Body height Body mass index (BMI) Body weight Heart rate Respiratory rate Body temperature Oxygen saturation Oxygen saturation in Arterial blood by Pulse oximetry Inhaled oxygen flow rate Systolic And Diastolic Provider Name and Address Organization Details Last Updated DateTime 5 170.18 cm 33.4 kg/m2 72643.1 7 g 55 /min 18 /min 97.8 [degF] 98 % 98 % 2 L/min 139/77 mm[Hg] Letty Mehta MD [address], [address], [place], [address], [facility] [place] [facility] 16:25:48 Social History Question Answer Notes LastModified by Organizat ion Details LastModified Time Tobacco Smoking Status Former Smoker Quit when admitted to rehab 08/2024 Letty Mehta MD [address], [address], [place], [place], [address], [facility] [place] [facility] 01/21/2025 18:12:08 Do You Have [...] Do You Have A Medical Power Of Gambling Supervisor? Yes Not Invoked Information not available 01/21/2025 [...] Recorded Time Tdap 09/28/2016 completed Pattie Robbi [facility] 08/14/2024 16:05:11 SARS-COV-2 (COVID-19) vaccine, UNSPECIFIED 11/29/2020 completed Pattie Robbi [facility] 08/14/2024 16:05:29 Past Encounters Encounter ID Performer Location Encounter Start Date Encounter Closed Date Diagnosis/Indication Diagnosis SNOMED-CT Code Diagnosis ICD10 Code Diagnosis IMO Codes Diagnosis Note [id number] [place] [address] [address] 08/14/2024 10:59:15 08/17/2024 16:18:46 Nontraumatic intraparenchymal cerebral hemorrhage [id number] 25635 I61.8 see HPIrecentl y discharged from hospital [...] on 08/26 Chronic ob structive pulmonary disease 84659714 J44.1 restart qid duonebsmon itor respirator y statuscomp lete prednisone coursecoor dinate with respirator y at facilitypu lmonary eval prn Respirator y syncytial virus infection 31997785 B97.4 see above Asthenia 18881496 R53.1 PT OT eval and treatmonit or fall risk and need for increased support in community Dysphagia 73061608 I69.2 91 monitor aspiration risk and need to further adjust diet Atrial fibrillation 7055 1509 I48.0 Xarelto on hold due to aboveamiod arone 200 mg qdasa 81 mg qd through 08/26metopr olol 50 mg qdmonitor for rate control Coronary arteriosclerosis 91449529 I25.10 lipitor 40 mg qdmetoprol ol 50 mg qdmonitor for sx Alcohol dependence 09535 003 F10.20 added to PMHcontinu e thiaminemo nitor need for increased support in community Tobacco user 549464909 Z 72.0 added to PMHencoura ge quittingco ntinue nicotine supplement Essential hypertension 56849555 I10 metoprolol 50 mg qdlasix 40 mg qdlisinopr il 10 mg qdentresto 24-26 mg bidmonitor bp and need titrate Mixed hyperlipidemia 267 878668 E78.2 lipitor 40 mg qdcontinue d Congestive heart failure 18933649 I50.22 EF=35%lasi x 40 mg qdentresto 24-26 mg bidmonitor respirator y and fluid status [id number] URIEL DELAROSA [address] [place] [address] 08/19/2024 13:34:52 08/20/2024 13:07:58 Nontraumatic intraparenchymal cerebral hemorrhage [id number] 96881 I61.8 continue ASA 08/05 through 08/26 with f/u neuro in place.Cont inued on dysphagia diet and continued on keppra 750 mg bid with plan to reassess ability to restart xarelto on 08/26neuros intact Chronic ob structive pulmonary disease 06049410 J44.1 continue duonebs QIDmonitor respirator y statuspulm nurse to followlung sounds still coarse Respirator y syncytial virus infection 89386792 B97.4 improving slowly [id number] URIEL DELAROSA [address] [place] [address] 08/24/2024 09:32:25 08/25/2024 12:01:07 Nontraumatic intraparenchymal cerebral hemorrhage 4624254004 07935 I61.8 continue ASA 08/05 through 08/26 with f/u neuro in place.Cont inued on dysphagia diet and continued on keppra 750 mg bid with plan to reassess ability to restart xarelto on 08/26 Chronic ob structive pulmonary disease 50543876 J44.1 continue duonebs QID Respirator y syncytial virus infection 19539524 B97.4 resolved Asthenia 50888653 R53.1 baselineVN A Outpt Atrial fibrillation 4943 6004 I48.0 Xarelto on hold due to aboveamiod arone 200 mg qdasa 81 mg qd through 08/26 then restart xareltomet oprolol 50 mg qd Coronary arteriosclerosis 73352958 I25.10 lipitor 40 mg qdmetoprol ol 50 mg qd Alcohol dependence 19222 003 F10.20 continue thiamine Tobacco user 654846116 Z 72.0 added to PMHencoura ge quittingco ntinue nicotine supplement Essential hypertension 98761188 I10 metoprolol 50 mg qdlasix 40 mg qdlisinopr il 10 mg qdentresto 24-26 mg bid Mixed hyperlipidemia 267 310808 E78.2 lipitor 40 mg qd Congestive heart failure 04056925 I50.22 EF=35%lasi x 40 mg qdentresto 24-26 mg bid [id number] [facility] [address] [place] [address] rd [place] [address] 09/02/2024 09:13:06 09/07/2024 15:57:48 Nontraumatic intraparenchymal cerebral hemorrhage 7633674419 43962 I61.8 see HPIrecentl y discharged from hospital for right Intraparen chymal hemorrhage with mild left hemiparesi s and dysarthria on dischargem aintained onxarelto 20 mg qdkeppra 1500 mg bidcoordin ate with neuro as needed Chronic ob structive pulmonary disease 05511906 J44.1 monitor neb utilizatio n and respirator y statusnow onpredniso ne 60 mg qdwill decrease by 10 mg q 5 days till at 10 mg then reassesspu lmonary eval prn Asthenia 13661490 R53.1 PT OT eval and treatmonit or fall risk and need for increased support in community Dysphagia 53838884 I69.2 91 monitor aspiration risk and need to further adjust diet Atrial fibrillation 4943 6004 I48.0 Xarelto 20 mg qdamiodaro ne 200 mg qdmetoprol ol 50 mg qdmonitor for rate control Coronary arteriosclerosis 69664630 I25.10 lipitor 40 mg qdmetoprol ol 50 mg qdmonitor for sx Alcohol dependence 08671 003 F10.20 added to PMHcontinu e thiaminemo nitor need for increased support in community Tobacco user 538605342 Z 72.0 added to PMHencou[place] ge quittingco ntinue nicotine supplement Essential hypertension 86703615 I10 metoprolol 50 mg qdnorvasc 5 mg qdlasix 40 mg qdentresto 24-26 mg bidmonitor bp and need titrate Mixed hyperlipidemia 267 678646 E78.2 lipitor 40 mg qdcontinue d Congestive heart failure 55358593 I50.22 EF=35%lasi x 40 mg qdentresto 24-26 mg bidmonitor respirator y and fluid status [id number] [place] SQUIRES [address] [address] 10/04/2024 10:50:42 10/27/2024 08:10:53 Chronic obstructive pulmonary disease 70555034 J44.1 stable O2 dependentm onitor respirator y statusCont prednisone 5mg qdpulmonar y eval prn Nontraumat ic intraparenchymal cerebral hemorrhage 6766546379 36388 I61.8 stablerece ntly discharged from hospital for right Intraparen chymal hemorrhage with mild left hemiparesi s and dysarthria on dischargem aintained onxarelto 20 mg qdkeppra 1500 mg bidcoordin ate with neuro as needed Atrial fibrillation 4943 6004 I48.0 HR controlled Xarelto 20 mg qdamiodaro ne 200 mg qdmetoprol ol 50 mg qdmonitor for rate control Coronary arteriosclerosis 33296382 I25.10 stablelipi tor 40 mg qdmetoprol ol 50 mg qdmonitor for sx Essential hypertension 35040262 I10 stablemeto prolol 50 mg qdnorvasc 5 mg qdlasix 40 mg qdentresto 24-26 mg bidmonitor bp and need titrate Congestive heart failure 50246507 I50.22 stable euvolemicE F=35%lasix 40 mg qdentresto 24-26 mg bidmonitor respirator y and fluid status [id number] KIAN RODRIGUEZ CNP [address] [address] 10/07/2024 08:46:35 10/09/2024 08:38:44 Chronic obstructive pulmonary disease 04013714 J44.1 now on prednisone 10 mg daily. Will taper down to 5 mg daily and will reassess.C ontinue neb QID.Contin ue monitor respirator y status.pul monary eval prn.Will check lab, CBC, CMP tomorrow. Nontraumat ic intraparenchymal cerebral hemorrhage 0443186006 98912 I61.8 see HPIrecentl y discharged from hospital for right Intraparen chymal hemorrhage with mild left hemiparesi s and dysarthria on discharge. Stable now.mainta ined onxarelto 20 mg qdkeppra 750 mg bidcoordin ate with neuro as needed Asthenia 96753083 R53.1 Improving. Continue PT OT, PRN eval and treatmonit or fall risk and need for increased support in community Dysphagia 37952006 I69.2 91 Resolved.I s currently is on regular diet, no coughing or chocking reported. Atrial fibrillation 4943 6004 I48.0 HR stable.Xar elto 20 mg qdamiodaro ne 200 mg qdmetoprol ol 50 mg qdmonitor for rate control Coronary arteriosclerosis 16289141 I25.10 lipitor 40 mg qdmetoprol ol 50 mg qdmonitor for sx Alcohol dependence 79656 003 F10.20 added to PMHcontinu e thiaminemo nitor need for increased support in community Tobacco user 930311462 Z 72.0 added to PMHenc[place] ge quittingco ntinue nicotine supplement Essential hypertension 33597436 I10 metoprolol 50 mg qdnorvasc 5 mg qdlasix 40 mg qdentresto 24-26 mg bidmonitor bp and need titrate Mixed hyperlipidemia 267 649866 E78.2 lipitor 40 mg qdcontinue d Congestive heart failure 83711715 I50.22 EF=35%Pt is euvolemic, but gained 14 lb over a month.? volume overload or due to high dose of prednisone .continuel asix 40 mg qdentresto 24-26 mg bidmonitor respirator y and fluid statuswill monitor wt weekly.[place] thibodeaux check labs tomorrow. [id number] KIAN R[facility]IGUEZ C[facility] [address] [place] [address] [place] [address] 10/14/2024 09:50:34 10/21/2024 11:35:43 Chronic obstructive pulmonary disease 69428259 J44.1 now on prednisone 5 mg daily, Will taper down to 2.5 mg daily and will reassess.w bc trending down.Keiry nue neb.Contin ue monitor respirator y status.pul monary eval prn.Will check lab weekly. Nontraumat ic intraparenchymal cerebral hemorrhage 7828970877 05493 I61.8 see HPIrecentl y discharged from hospital for right Intraparen chymal hemorrhage with mild left hemiparesi s and dysarthria on discharge. Stable now.mainta ined onxarelto 20 mg qdkeppra 750 mg bidcoordin ate with neuro as needed Asthenia 63357701 R53.1 Improving. Continue PT OT, PRN eval and treatmonit or fall risk and need for increased support in community Dysphagia 96397356 I69.2 91 Resolved.I s currently is on regular diet, no coughing or chocking reported. Atrial fibrillation 4943 6004 I48.0 HR stable.Xar elto 20 mg qdamiodaro ne 200 mg qdmetoprol ol 50 mg qdmonitor for rate control Coronary arteriosclerosis 98696113 I25.10 lipitor 40 mg qdmetoprol ol 50 mg qdmonitor for sx Alcohol dependence 66329 003 F10.20 added to PMHcontinu e thiaminemo nitor need for increased support in community Tobacco user 539728445 Z 72.0 added to PMHencoura ge quittingco ntinue nicotine supplement Essential hypertension 14287045 I10 BP stable.met oprolol 50 mg qdnorvasc 5 mg qdlasix 40 mg qdentresto 24-26 mg bidmonitor bp and need titrate Mixed hyperlipidemia 267 074167 E78.2 lipitor 40 mg qdcontinue d Congestive heart failure 36721934 I50.22 EF=35%Pt is euvolemic, but gained 14 lb over a month.? volume overload or due to high dose of prednisone .continuel asix 40 mg qdentresto 24-26 mg bidmonitor respirator y and fluid statuswill monitor wt weekly.Sabas l check labs tomorrow. [id number] KIAN RODRIGUEZ, MEDARDO YAP HALEY [address] [facility] [place] [address] 10/21/2024 09:10:50 10/27/2024 08:23:45 Chronic obstructive pulmonary disease 62808158 J44.1 Stable, no exacerbati on noted.Pred nisone tapered down to 2.5 mg now, and will tapered to 1 mg daily for 5 days and then stop.wbc trending down.will change neb treatment as PRN.Contin ue monitor respirator y status.pul monary eval prn.Will check lab weekly. Nontraumat ic intraparenchymal cerebral hemorrhage 2872232836 83355 I61.8 see HPIrecentl y discharged from hospital for right Intraparen chymal hemorrhage with mild left hemiparesi s and dysarthria on discharge. Stable now.mainta ined onxarelto 20 mg qdkeppra 750 mg bidcoordin ate with neuro as needed Asthenia 31497602 R53.1 Improving. Continue PT OT, PRN eval and treatmonit or fall risk and need for increased support in community Dysphagia 40250710 I69.2 91 Resolved.I s currently is on regular diet, no coughing or chocking reported. Atrial fibrillation 4943 6004 I48.0 HR stable.Xar elto 20 mg qdamiodaro ne 200 mg qdmetoprol ol 50 mg qdmonitor for rate control Coronary arteriosclerosis 84298758 I25.10 lipitor 40 mg qdmetoprol ol 50 mg qdmonitor for sx Alcohol dependence 74383 003 F10.20 added to PMHcontinu e thiaminemo nitor need for increased support in community Tobacco user 628719326 Z 72.0 added to PMHencoura ge quittingco ntinue nicotine supplement Essential hypertension 41144565 I10 BP stable.met oprolol 50 mg qdnorvasc 5 mg qdlasix 40 mg qdentresto 24-26 mg bidmonitor bp and need titrate Mixed hyperlipidemia 267 568598 E78.2 lipitor 40 mg qdcontinue d Congestive heart failure 79234495 I50.22 EF=35%Pt is euvolemic, but gained 14 lb over a month.? volume overload or due to high dose of prednisone .continuel asix 40 mg qdentresto 24-26 mg bidmonitor respirator y and fluid statuswill monitor wt weekly.[place] l check labs tomorrow. [id number] KIAN RODRIGUEZ, MEDARDO [address] [place] [address] 10/28/2024 09:19:53 11/03/2024 11:20:44 Chronic obstructive pulmonary disease 52285771 J44.1 Stable, no exacerbati on noted.Pred nisone tapered down and completed yesterday. wbc trending down.He has been using neb treatment as PRN.Contin ue monitor respirator y status.ref er to pulmonary for evalWill check lab weekly. Nontraumat ic intraparenchymal cerebral hemorrhage 1148195371 96522 I61.8 see HPIrecentl y discharged from hospital for right Intraparen chymal hemorrhage with mild left hemiparesi s and dysarthria on discharge. Stable now.mainta ined onxarelto 20 mg qdkeppra 750 mg bidcoordin ate with neuro as needed Asthenia 14631923 R53.1 Improving. Continue PT OT, PRN eval and treatmonit or fall risk and need for increased support in community Atrial fibrillation 4943 6004 I48.0 HR stable.Xar elto 20 mg qdamiodaro ne 200 mg qdmetoprol ol 50 mg qdmonitor for rate control Coronary arteriosclerosis 32899206 I25.10 lipitor 40 mg qdmetoprol ol 50 mg qdmonitor for sx Alcohol dependence 09028 003 F10.20 added to PMHcontinu e thiaminemo nitor need for increased support in community Tobacco user 956607591 Z 72.0 added to PMHencoura ge quittingco ntinue nicotine supplement Essential hypertension 89492348 I10 BP stable.met oprolol 50 mg qdnorvasc 5 mg qdlasix 40 mg qdentresto 24-26 mg bidmonitor bp and need titrate Mixed hyperlipidemia 267 083342 E78.2 lipitor 40 mg qdcontinue d Congestive heart failure 02696381 I50.22 EF=35%Pt is euvolemic, but gained 14 lb over a month.? volume overload or due to high dose of prednisone .continuel asix 40 mg qdentresto 24-26 mg bidmonitor respirator y and fluid statuswill monitor wt weekly.[place] carlos eduardo check labs tomorrow. [id number] KIAN RODRIGUEZ, MEDARDO DE LEON [address] [facility] [place] [address] 11/04/2024 09:35:19 11/06/2024 14:11:01 Chronic obstructive pulmonary disease 62856971 J44.1 Stable, no exacerbati on noted.Pred nisone tapered down and completed last week.wbc trending down.He has been using neb treatment as PRN.Contin ue monitor respirator y status.pul monary evaluation scheduled. Will check lab weekly. Nontraumat ic intraparenchymal cerebral hemorrhage 8774241261 25492 I61.8 see HPIrecentl y discharged from hospital for right Intraparen chymal hemorrhage with mild left hemiparesi s and dysarthria on discharge. Stable now.mainta ined onxarelto 20 mg qdkeppra 750 mg bidcoordin ate with neuro as needed Asthenia 04880045 R53.1 Improving. Continue PT OT, PRN eval and treatmonit or fall risk and need for increased support in community Atrial fibrillation 4943 6004 I48.0 HR stable.Xar elto 20 mg qdamiodaro ne 200 mg qdmetoprol ol 50 mg qdmonitor for rate control Coronary arteriosclerosis 43966155 I25.10 lipitor 40 mg qdmetoprol ol 50 mg qdmonitor for sx Alcohol dependence 38227 003 F10.20 added to PMHcontinu e thiaminemo nitor need for increased support in community Tobacco user 340259769 Z 72.0 added to PMHencoura ge quittingco ntinue nicotine supplement Essential hypertension 71430157 I10 BP stable.met oprolol 50 mg qdnorvasc 5 mg qdlasix 40 mg qdentresto 24-26 mg bidmonitor bp and need titrate Mixed hyperlipidemia 267 551180 E78.2 lipitor 40 mg qdcontinue d Congestive heart failure 73837833 I50.22 EF=35%Pt is euvolemic, but gained 14 lb over a month.? volume overload or due to high dose of prednisone .continuel asix 40 mg qdentresto 24-26 mg bidmonitor respirator y and fluid statuswill monitor wt weekly.car diology f/u scheduled today. [id number] MD MARELY Vides HALEY [address] [place] [address] rd [place] [address] 11/09/2024 11:22:44 11/11/2024 14:10:04 Acute kidney injury 42019252 N17.8 07598 see HPI question due to diuresisno w metolazone has been discontinu eddischarg ed on torsemide 20 mg with frequency to be confirmed with hospital - monitor need to increase to BIDwill change to q day and monitor weightsdis cussed with nursing Normocytic anemia 062000 002 D64.9 61039 acute on chronic anemianow on iron 325 mg m/w/fto f/u with GI out patient with no bleeding source foundhx need for iron infusionmo nitor cbcheme eval prnof note remains on xarelto Congestive heart failure 97616917 I50.22 now ontorsemid e 20 mg qdentresto 24-26 mg bidmonitor respirator y and fluid statusupda te cards with concerns Chronic ob structive pulmonary disease 06590891 J44.1 recent need for prednisone utilizatio nmonitor respirator y statuspulm onary eval prn Nontraumat ic intraparenchymal cerebral hemorrhage 7354387452 42194 I61.8 prior right Intraparen chymal hemorrhage with mild left hemiparesi s and dysarthria on dischargem aintained onxarelto 20 mg qdkeppra 750 mg bidcoordin ate with neuro as needed Asthenia 68026186 R53.1 PT OT eval and treatmonit or fall risk and need for increased support in community Dysphagia 23558787 I69.2 91 monitor aspiration risk and need to further adjust diet Atrial fibrillation 4943 6004 I48.0 Xarelto 20 mg qdamiodaro ne 200 mg qdmetoprol ol 12.5 mg qdmonitor for rate control Coronary arteriosclerosis 42752916 I25.10 lipitor 40 mg qdmetoprol ol 12.5 mg qdmonitor for sx Essential hypertension 94761632 I10 see HPI with changes now onmetoprol ol 12.5 mg qdtorsemid e 20 mg qd - pending confirmati on from [facility] tresto 24-26 mg bidmonitor bp and need titrate Mixed hyperlipidemia 267 518354 E78.2 lipitor 40 mg qdcontinue d [id number] MD MARELY [place] [address] [place] [address] rd [place] [address] 01/21/2025 16:09:29 01/26/2025 10:38:08 Congestive heart failure 23896449 I50.22 Resp sxs and edema at baseline per pt.Continu e torsemide 20 mg qd, metoprolol 12.5 mg qd, and entresto 24/26 mg BID.Monito r resp. status, fluid status, wts and labs.F/U with cardio as planned and prn. Chronic ob structive pulmonary disease 88703692 J44.1 With some exp wheezing today, pt says baseline.C ontinue Trelegy 200/62.5/2 5 mcg qd, roflumilas t 500 mcg qd, albuterol MDI 2 puffs q 6 hrs prn, and duonebs q 6 hrs prn.Monito r resp status.F/U with pulmonary in 03/2025 as planned. Nontraumat ic intraparenchymal cerebral hemorrhage [id number] 42356 I61.8 In hx.On seizure prophylaxi s with keppra 750 mg BID.Monito r for new neuro changes and seizure activity. Asthenia [id number] R53.1 Is back to baseline.R estart PT/OT prn Atrial fibrillation 4943 6004 I48.0 Rate in good control on meds as above and amiodarone 200 mg qd.Continu e Xarelto 20 mg qd for AC.Monitor HR and bleeding risk.Will be able to d/c Xarelto after Watchman procedure. Coronary arteriosclerosis [id number] I25.10 No recent chest pain.Keiry nue meds as above and atorvastat in 40 mg qdNo plans for revascular ization.Mo nitor for sxs.F/U with cardio. Essential hypertension [id number] I10 Adequate control on meds as above.Lexie tor BP and labs. Chronic ki dney disease stage 2 [id number] N18.2 [id number] Renal function stable.Bal ancing act between CHF and CKD.Titrat e diuretics as needed.Mon itor labs. Pain of knee region 1003 776246 M25.561 M25.562 G89.29 [id number] Pt says that knee pain interferes in functionin g more than resp sxs.He has had steroid injections with in house physiatris t with very short term relief. Physiatris t has suggested gel shots as outpt.Cont inue APAP 650 mg q 6 hrs prn and Percocet 325/5 mg q 6 hrs prn.Consul t PSSP for ? Effluxa shots.Forg ot to discuss lidocaine patches. Anemia [id number] D64.89 [id number] Stable.No cause found.Cont inue FeSO4 324 mg [...] Member ID Guarantor Name 01/21/2025 2 MEDICAID-[place]: [facility] Dwaine Orellana [id number] Dwaine Orellana 01/21/2025 1 MEDICARE B-[place]: [place] Dwaine Orellana [id number] Dwaine Orellana Notes Date Note Type Note [...] htn, hld, chf EF=35%, copd. KIAN RODRIGUEZ, DEMONSTRATOR SALES [address], [address], [place], [address], [facility] [employer] 10/21/2024 10:05:50 5 text/html ROS as noted [...] htn, hld, chf EF=35%, copd. KIAN RODRIGUEZ, DEMONSTRATOR SALES [address], [address], [place], [address], [facility] [employer] 10/28/2024 10:41:17 5 text/html ROS as noted [...] chf EF=35%, copd. KIAN RODRIGUEZ CNP [address], [address], [place], [address], [facility] [employer] [facility] 11/04/2024 10:05:56 5 text/html Patient is [...] maintained on xarelto Esa Rodrigues MD [address], [address], [place], [address], [employer] [facility] 11/09/2024 11:52:00 5 text/html This is a complicated 59 yo man with COPD on home O2, who I am seeing today for a delayed 90 day routine visit and in anticipation of transition to new medical team.He has been here since 09/01/24 with one rehospitalization from 11/04-11/07. [facility] with hx of seizure activity and resp distress requiring intubation. It is unclear whether this was a true seizure vs encephalopathy secondary to hypercarbic respiratory failure .He wasd/c homewith BiPAP ordered. [facility] with left sided weakness and being found to have 3.4 x 1.8 cm acute intraparenchymal hemorrhage involving the right lentiform nucleus with mild adjacent mass effect At [facility] MRI brain with and without contrast did [...] He wasd/c home with [facility]NA 08/04 [facility].D/C home for outpt f/u. 08[facility] on 08/08 with worsening left sided weakness. Found to have Right lentiform nucleus evolving parenchymal hematoma with slightly decreased hyperdense components, and slightly increased surrounding edema. Leftward midline shift by 3 to 4 mm, slightly worse. Course complicated by +RSV.D/C to [facility], where he did well and wasd/c home on 08/25. [facility]. He was txed [...] however, shared decision to send patient to [facility] for evaluation/treatment to monitor closely due to above-stated signs/symptoms and hypotension. Transferred to [facility]. Per d/c summary:Hypotension-Prese nted hypotensive [...] anemia all contributing to this symptom.-labs from custodial 11 down to 7s, now in 8s, may be some hemoconcentration but steady overnight, no active bleeding noted.- noted 1 previous episode of unexplained severe anemia down to a hemoglobin of 5 in February 2023 after extensive evaluation with endoscopies and VCE no source was found anemia. During this stay his iron levels were low. At one point he was following with the [facility] for iron infusions. He was given [...] 70% general good cardiac function-gaining wt at custodial and seemed to be overdiuresed in recent [...] transitioned to private pay.He is looking into [facility] as rest homes do not accept [...] and hx of AUD. Letty Mehta MD [address] [place] [address], [address], [place], [address], [facility] 01/23/2025 15:32:06
--- OUTSIDE RECORDS SUMMARY | 2025-04-12 06:39 | XMS_ITS | Encounter Summary ---
Author Organization [facility] Address [address] [facility] [address] [place] [address] Phone Care Team Providers Care Casting Machine Service Operator Name Role Phone Olegario Guy MD Primary Care Provider [phone] Marlene Harden SOFTWARE ENGINEER WEB SERVICES Primary Care Provider Yue Rodrigez RN Unavailable Jennifer Dash LOADING INSPECTOR Unavailable [email or web address] Yvonne Montana Unavailable [email or web address] Dennis Temple MBBS Unavailable [phone] Gabriela Barnhart DIRECT OF REAL ESTATE Unavailable Cj Meyer DO Primary Care Provider Encounter Details Date Type Department Care Team (Latest Contact Info) Description 11/25/2019 Transcribe Orders Virtual Department 30 [place] [address] Marlene Harden, SOFTWARE ENGINEER WEB SERVICES [address] [place], [place] [id number] Atypical chest pain (Primary Dx) Social History [...] AM EST Appointment [facility] 30 [place] [address] Conner Sneed MD [address] [address] [email or web address] 05/14/2025 1:00 PM EST Office Visit [facility], [address] [place] [address] Rehan Landaverde MD 50 [place] [address] 09/13/2025 9:30 AM EDT Office Visit [facility] Pulmonary, Allergy and Critical Care Medicine 10 [place] [address] Conner Sneed MD [address] [address] [email or web address] Scheduled Procedures Name Priority Associated Diagnoses Date/Ti me PA MONITOR INSERTION IN OBIEE REPORT DEVELOPER Systolic congestive heart failure, unspecified HF [...] documented as of this encounter Care Teams Casting Machine Service Operator Relationship Specialty Start Date End Date Olegario Guy MD [address] [facility] [address] [place] [address] [email or web address] PCP - General Family Medicine 03/28/20 01/09/22 Marlene Harden NP [address] [place] [address] PCP - General Family Medicine 01/10/22 08/07/24 Cj Meyer DO [address] [place] [address] PCP - General Internal Medicine 08/08/24 Yue Rodrigez RN [address] [place] [address] [email or web address] [facility] Cotton Tier 02/21/22 06/09/23 Jennifer Dash LCSW [address] [place] [address] [email or web address] [facility] Social Work 02/01/23 02/11/23 Yvonne Montana [address] [place] [address] [email or web address] [facility] Community Health Worker 02/25/23 06/09/23 Dennis Temple MBBS [address] [place] [address] [email or web address] Primary Oncologist Hematology and Oncology 04/02/23 Gabriela Barnhart CNP [address] [place] [address] [email or web address] Nurse Practitioner Medical Oncology 01/16/24 documented as of this encounter Additional Source Comments The information contained in this document represents components of the legal health record. It is not the complete legal health record.[facility]
--- OUTSIDE RECORDS SUMMARY | 2025-04-12 06:40 | XMS_ITS | Encounter Summary ---
Author Organization [facility] Address [address] [facility] [address] [place] [address] Phone Care Team Providers Care Real Estate Services Coordinator Name Role Phone Marlene Harden NP Primary Care Provider [phone] Yue Rodrigez RN Unavailable Jennifer Dash VENDOR SPECIALIST Unavailable felisa Yvonne Montana Unavailable Dennis Temple MBBS Unavailable [phone] Gabriela Barnhart WOUND CARE CENTER CONSULTANT Unavailable Cj Meyer DO Primary Care Provider [phone] Encounter Details Date Type Department Care Team (Late st Contact Info) Description 02/20/2022 Procedure Pass [facility] [address] [place] [address] Social History Tobacco Use Types Packs/Day [...] 11:20 AM EDT Elizabeth Le RN * [place] Suicide Severity Rating Scale (Screener/Recent Self-Report) Question Answer Date of Assessment Author 1. Wish to be (Past 1 Month) No 022 11:20 AM EDT Elizabeth Spears RN 2. Non-Specific Active Suici mehgan Thoughts (Past 1 Month) No 02/20/2022 11:20 AM EDT Keli Spears RN 6. Suicidal Behavior (Lifetime) No 11:20 AM EDT Elizabeth Spears RN documented as of this encounter Plan of Treatment Upcoming Encounters Date Type Department Care Team (Late st Contact Info) Description 05/13/2025 9:30 AM EST Appointment [facility] 30 [place] [address] Conner Sneed MD [address] [place] [address] [email or web address] 05/14/2025 1:00 PM EST Office Visit [facility] [address] [place] [address] [address]rd [facility], [address] [place] [address] Rehan Landaverde MD [address] [place] [address] 09/13/2025 9:30 AM EDT Office Visit [facility] All[facility] 10 [place] [address] Conner Sneed MD [address] [place] [address] [email or web address] Scheduled Procedures Name Priority Associated Diagnoses Date/Ti me PA MONITOR INSERTION IN GRAIN SHIPPER Systolic congestive heart failure, unspecified HF chronicity [...] of this encounter Care Teams Real Estate Services Coordinator Relationship Specialty Start Date End Date Marlene Harden ADVICE LINE RN 70 [place] [address] PCP - General Family Medicine 01/10/22 08/07/24 Cj Meyer DO 70 [place] [address] PCP - General Internal Medicine 08/08/24 Yue Rodrigez, VENKATA [address] [place] [address] [email or web address] [facility] Senior Credit Officer 02/21/22 06/09/23 Jennifer Dash LCSW [address] [place] [address] [email or web address] [facility] Social Work 02/01/23 02/11/23 Yvonne Montana [address] [place] [address] [email or web address] [facility] Community Health Worker 02/25/23 06/09/23 Dennis Temple MBBS [address] [place] [address] [email or web address] Primary Oncologist Hematology and Oncology 04/02/23 Gabriela Barnhart CNP [address] [place] [address] [email or web address] Nurse Practitioner Medical Oncology 01/16/24 documented as of this encounter Additional Source Comments The information contained in this document represents components of the legal health record. It is not the complete legal health record.[facility]
--- OUTSIDE RECORDS SUMMARY | 2025-04-12 06:40 | XMS_ITS | Encounter Summary ---
Author Organization [facility] Address [address] [facility] [address] [place] [address] Phone Care Team Providers Care Dust Collector Name Role Phone Marlene Harden NP Primary Care Provider Yue Rodrigez RN Unavailable Jennifer Dash EQUIPMENT SERVICE ENGINEER Unavailable felisa Yvonne Montana Unavailable Dennis Temple MBBS Unavailable [phone] Gabriela Barnhart HOME SECURITY ALARM INSTALLER Unavailable Cj Meyer DO Primary Care Provider Encounter Details Date Type Department Care Team (Late st Contact Info) Description 05/29/[address] [facility] Cardiovascular And Interventional Radiology 30 [place] [address] Social History Tobacco Use Types Packs/Day Years [...] AM EST Appointment [facility] 30 [place] [address] Conner Sneed MD [address] [address] [email or web address] 05/14/2025 1:00 PM EST Office Visit [facility] 22 [facility] 3rd Floor, [address] [place] [address] Rehan Landaverde MD [address] [place] [address] 09/13/2025 9:30 AM EDT Office Visit [facility] All[facility] Critical [facility] 10 [place] [address] Conner Sneed MD [address] [address] [email or web address] Scheduled Procedures Name Priority Associated Diagnoses Date/Ti me PA MONITOR INSERTION IN BUILDING CUSTODIAL SUPERVISOR Systolic congestive heart failure, unspecified HF [...] documented as of this encounter Care Teams Dust Collector Relationship Specialty Start Date End Date Marlene Harden NP 70 [place] [address] PCP - General Family Medicine 01/10/22 08/07/24 Cj Meyer DO 70 [place] [address] PCP - General Internal Medicine 08/08/24 Yue Rodrigez, VENKATA [address] [place] [address] [facility] Tail Dogger 02/21/22 06/09/23 Jennifer Dash LCSW [address] [place] [address] [email or web address] [facility] Social Work 02/01/23 02/11/23 Yvonne Montana [address] [place] [address] [email or web address] [facility] Community Health Worker 02/25/23 06/09/23 Dennis Temple MBBS [address] [place] [address] [email or web address] Primary Oncologist Hematology and Oncology 04/02/23 Gabriela Barnhart CNP [address] [place] [address] Nurse Practitioner Medical Oncology 01/16/24 documented as of this encounter Additional Source Comments The information contained in this document represents components of the legal health record. It is not the complete legal health record.[facility]
--- OUTSIDE RECORDS SUMMARY | 2025-04-12 06:40 | XMS_ITS | Encounter Summary ---
Author Organization [facility] Address [address] [facility] [address] [place] [address] Phone Care Team Providers Care Consulting Application Engineer Name Role Phone Marlene Harden NP Primary Care Provider [phone] Dennis Temple MBBS Unavailable [phone] Gabriela Barnhart LITIGATION SECRETARY Unavailable Cj Meyer DO Primary Care Provider [phone] Reason for Referral * MRI/CAT Scan - Closed Specialty Diagnoses / Procedures Referred By Contflorentin t Referred To Contact Radiology Diagnoses Cigarette smoker Procedures CT Chest Lung Cancer Screening Initial Or Annual Marlene Harden NP Phone: tel: Referral ID Status Reason Start Date Expiration Date Visits Re quested Visits Authorized [id number] Closed 10/03/2023 10/02/2024 1 1 Encounter Details Date Type Department Care Team (Latest Contact Info) Description 10/03/2023 Transcribe Orders Virtual Department 30 [place] [address] Marlene Harden NP [address] [place], [place] [phone] Cigarette smoker (Primary Dx) Social History Tobacco [...] AM EST Appointment [facility] 30 [place] [address] Conner Sneed MD [address] [address] [email or web address] 05/14/2025 1:00 PM EST Office Visit [facility] [address] [place] [address] 3rd Floor, [address] [place] [address] Rehan Landaverde MD [address] [place] [address] 09/13/2025 9:30 AM EDT Office Visit [facility]monary, Allergy and Critical Care Medicine 10 [facility] [address] [place] [address] Conner Sneed MD 10 [facility] 2nd [place] [address] [email or web address] Scheduled Procedures Name Priority Associated Diagnoses Date/Ti ky PA MONITOR INSERTION IN SCHOOL COUNSELLOR Systolic congestive heart failure, unspecified HF chronicity [...] clinician's provided indication for this examination in [facility]: Lung Cancer Screening - CURRENT [...] clinician's provided indication for this examination in [facility]:Lung Cancer Screening - CURRENT smoker [...] categories can be found at:[email or web address] Marlene Harden INSIDE HORTICULTURAL SPECIALTY GROWER IMG CT CHEST Final Result documented in [...] documented as of this encounter Care Teams Consulting Application Engineer Relationship Specialty Start Date End Date Marlene Harden NP 70 [place] [address] PCP - General Family Medicine 01/10/22 08/07/24 Cj Meyer DO 70 [place] [address] PCP - General Internal Medicine 08/08/24 Dennis Temple MBBS 70 [place] [address] [email or web address] Primary Oncologist Hematology and Oncology 04/02/23 Gabriela Barnhart CNP [address] [place] [address] [email or web address] Nurse Practitioner Medical Oncology 01/16/24 documented as of this encounter Additional Source Comments The information contained in this document represents components of the legal health record. It is not the complete legal health record.[facility]
--- OUTSIDE RECORDS SUMMARY | 2025-04-12 06:40 | XMS_ITS | Encounter Summary ---
Author Organization [facility] Address [address] [facility] [address] [place] [address] Phone Care Team Providers Care Selenium Plant Operator Name Role Phone Marlene Harden STAGE RIGGER Primary Care Provider Yue Rodrigez RN Unavailable Jennifer Dash HEATING SYSTEMS INSTALLER Unavailable felisa Yvonne Montana Unavailable [email or web address] Dennis Temple MBBS Unavailable Gabriela Barnhart REAL ESTATE PARALEGAL Unavailable Cj Meyer DO Primary Care Provider Encounter Details Date Type Department Care Team (Late st Contact Info) Description 05/14/2022 Transcribe Orders [facility] 30 [place] [address] Marlene Harden NP [address] [place], [place] [id number] Social History Tobacco Use Types Packs/Day Years [...] AM EST Appointment [facility] [address] [place] [address] Conner Sneed MD 10 [facility] 2nd [place] [address] [email or web address] 05/14/2025 1:00 PM EST Office Visit [facility] 22 [facility] 3rd Floor, [address] [place] [address] Rhean Landaverde MD 50 [place] [address] 09/13/2025 9:30 AM EDT Office Visit [facility], Allergy [facility] Critical [facility] 10 [facility] [place] [address] Conner Sneed MD [address] [address] [email or web address] Scheduled Procedures Name Priority Associated Diagnoses Date/Ti me PA MONITOR INSERTION IN WAGON DRILL OPERATOR Systolic congestive heart failure, unspecified HF [...] documented as of this encounter Care Teams Selenium Plant Operator Relationship Specialty Start Date End Date Marlene Harden NP 70 [place] [address] PCP - General Family Medicine 01/10/22 08/07/24 Cj Meyer DO 70 [place] [address] PCP - General Internal Medicine 08/08/24 Yue Rodrigez RN [address] [place] [address] [email or web address] [facility] Controls Designer 02/21/22 06/09/23 Jennifer Dash LCSW [address] [place] [address] [facility] Social Work 02/01/23 02/11/23 Yvonne Montana [address] [place] [address] [email or web address] [facility] Community Health Worker 02/25/23 06/09/23 Dennis Temple MBBS [address] [place] [address] [email or web address] Primary Oncologist Hematology and Oncology 04/02/23 Gabriela Barnhart CNP [address] [place] [address] [email or web address] Nurse Practitioner Medical Oncology 01/16/24 documented as of this encounter Additional Source Comments The information contained in this document represents components of the legal health record. It is not the complete legal health record.[facility]
--- OUTSIDE RECORDS SUMMARY | 2025-04-12 06:40 | XMS_ITS | Encounter Summary ---
Author Organization [facility] Address [address] [facility] [address] [place] [address] Phone Care Team Providers Care Helpdesk Specialist Name Role Phone Marlene Harden NP Primary Care Provider [phone] Yue Rodrigez RN Unavailable Jennifer Dash WATER MANGLE TENDER Unavailable felisa Yvonne Montana Unavailable Dennis Temple MBBS Unavailable [phone] Gabriela Barnhart CHAINSAW MECHANIC Unavailable Cj Meyer DO Primary Care Provider Encounter Details Date Type Department Care Team (Late st Contact Info) Description 06/21/2022 Procedure Pass [facility] Cardiovascular And Interventional Radiology 30 [place] [address] Social History Tobacco Use Types Packs/Day Years [...] AM EST Appointment [facility] 30 [place] [address] Conner Sneed MD [address] [address] [email or web address] 05/14/2025 1:00 PM EST Office Visit [facility] 22 [facility] 3rd Floor, [address] [place] [address] Rehan Landaverde MD [address] [place] [address] 09/13/2025 9:30 AM EDT Office Visit [facility], Allergy and Critical Care Medicine 10 [place] [address] Conner Sneed MD [address] [address] [email or web address] Scheduled Procedures Name Priority Associated Diagnoses Date/Ti me PA MONITOR INSERTION IN COVER MACHINE OPERATOR Systolic congestive heart failure, unspecified [...] documented as of this encounter Care Teams Helpdesk Specialist Relationship Specialty Start Date End Date Marlene Harden NP 70 [place] [address] PCP - General Family Medicine 01/10/22 08/07/24 Cj Meyer DO 70 [place] [address] PCP - General Internal Medicine 08/08/24 Yue Rodrigez, VENKATA [address] [place] [address] [facility] Tugger Operator 02/21/22 06/09/23 Jennifer Dash LCSW [address] [place] [address] [email or web address] [facility] Social Work 02/01/23 02/11/23 Yvonne Montana [address] [place] [address] [email or web address] [facility] Community Health Worker 02/25/23 06/09/23 Dennis Temple MBBS [address] [place] [address] [email or web address] Primary Oncologist Hematology and Oncology 04/02/23 Gabriela Barnhart CNP [address] [place] [address] Nurse Practitioner Medical Oncology 01/16/24 documented as of this encounter Additional Source Comments The information contained in this document represents components of the legal health record. It is not the complete legal health record.[facility]
--- OUTSIDE RECORDS SUMMARY | 2025-04-12 06:40 | XMS_ITS | Encounter Summary ---
Author Organization Formerly [facility] Address [address] [place] [address] Phone Care Team Providers Care Apple Peeler Operator Name Role Phone Marlene Harden NP Primary Care Provider Yue Rodrigez RN Unavailable Jennifer Dash FILM EDITOR Unavailable felisa Yvonne Montana Unavailable [email or web address] Dennis Temple MBBS Unavailable [phone] IN WAITER/WAITRESS Unavailable Cj Meyer DO Primary Care Provider [phone] Encounter Details Date Type Department Care Team (Late st Contact Info) Description 03/15/2022 Procedure Pass [facility], Ct Scan - [address] [address] Social History Tobacco Use Types Packs/Day Years [...] AM EST Appointment [facility] 30 [place] [address] Conner Sneed MD [address] [address] [email or web address] 05/14/2025 1:00 PM EST Office Visit [facility] [address] Floor, [address] [place] [address] Rehan Landaverde MD [address] [place] [address] 09/13/2025 9:30 AM EDT Office Visit [facility] 10 [place] [address] Conner Sneed MD [address] [place] [address] [email or web address] Scheduled Procedures Name Priority Associated Diagnoses Date/Ti me PA MONITOR INSERTION IN FOUNDRY FINISHER Systolic congestive heart failure, unspecified HF [...] documented as of this encounter Care Teams Apple Peeler Operator Relationship Specialty Start Date End Date Marlene Harden NP 70 [place] [address] PCP - General Family Medicine 01/10/22 08/07/24 Cj Meyer DO 70 [place] [address] PCP - General Internal Medicine 08/08/24 Yue Rodrigez, VENKATA [address] [place] [address] [facility] Pad Machine Feeder 02/21/22 06/09/23 Jennifer Dash LCSW [address] [place] [address] [facility] Social Work 02/01/23 02/11/23 Yvonne Montana [address] [place] [address] [facility] Community Health Worker 02/25/23 06/09/23 Dennis Temple MBBS [address] [place] [address] [email or web address] Primary Oncologist Hematology and Oncology 04/02/23 Gabriela Barnhart CNP [address] [place] [address] Nurse Practitioner Medical Oncology 01/16/24 documented as of this encounter Additional Source Comments The information contained in this document represents components of the legal health record. It is not the complete legal health record.[facility]
--- OUTSIDE RECORDS SUMMARY | 2025-04-12 06:40 | XMS_ITS | Encounter Summary ---
Author Organization [facility] Address [address] [place] [address] Phone Care Team Providers Care Movie Critic Name Role Phone Dereck Marlene Mook SETTER OUT Primary Care Provider [phone] Dennis Temple MBBS Unavailable [phone] Gabriela Barnhart TROLLEY OPERATOR Unavailable Cj Meyer DO Primary Care Provider [phone] Encounter Details Date Type Department Care Team (Late st Contact Info) Description 10/03/2023 Procedure Pass [facility], Ct Scan - [address] [address] Social History Tobacco Use Types Packs/Day Years [...] Appointment [facility] 30 [place] [address] Conner Sneed MD [address] [place] [address] [email or web address] 05/14/2025 1:00 PM EST Office Visit [facility] [address] [facility] 3rd Floor, [address] [place] [address] Rehan Landaverde MD [address] [place] [address] 09/13/2025 9:30 AM EDT Office Visit [facility] 10 [place] [address] Conner Sneed MD [address] [place] [address] [email or web address] Scheduled Procedures Name Priority Associated Diagnoses Date/Ti me PA MONITOR INSERTION IN TUBE DRAW HELPER Systolic congestive heart failure, unspecified HF [...] documented as of this encounter Care Teams Movie Critic Relationship Specialty Start Date End Date Marlene Harden NP 70 [place] [address] PCP - General Family Medicine 01/10/22 08/07/24 Cj Meyer DO 70 [place] [address] PCP - General Internal Medicine 08/08/24 Dennis Temple MBBS [address] [place] [address] [email or web address] Primary Oncologist Hematology and Oncology 04/02/23 Gabriela Barnhart CNP [address] [place] [address] [email or web address] Nurse Practitioner Medical Oncology 01/16/24 documented as of this encounter Additional Source Comments The information contained in this document represents components of the legal health record. It is not the complete legal health record.[facility]
--- OUTSIDE RECORDS SUMMARY | 2025-04-12 06:40 | XMS_ITS | Encounter Summary ---
Author Organization [facility] Address [address] [place] [address] Phone Care Team Providers Care Order Entry Clerk Name Role Phone Marlene Harden NP Primary Care Provider [phone] Yue Rodrigez RN Unavailable Jennifer Dash PRECISION DYER Unavailable [email or web address] Yvonne Montana Unavailable Dennis Temple MBBS Unavailable Gabriela aBrnhart SILL WORKER Unavailable Cj Meyer DO Primary Care Provider [phone] Reason for Referral * - Closed Specialty Diagnoses / Procedures Referred By Contflorentin t Referred To Contact Diagnoses Permanent atrial fibrillation Procedures MCT (Mobile Cardiac Telemetry) Zack Sanchez DO Phone: tel: fax: mailto: Referral ID Status Reason Start Date Expiration Date Visits Re quested Visits Authorized [id number] Closed 04/11/2022 04/11/2023 1 1 Encounter Details Date Type Department Care Team (Latest Contact Info) Description 04/11/2022 Ancillary Orders [facility] [address] [facility] 3rd Floor, [address] [place] [address] Zack Sanchez DO [address] [address] [email or web address] Permanent atrial fibrillation Social History [...] AM EST Appointment [facility] 30 [place] [address] Conner Sneed MD [address] [place] [address] [email or web address] 05/14/2025 1:00 PM EST Office Visit [facility] [address] [place] [address] [address]rd [facility], [address] [place] [address] Rehan Landaverde MD [address] [place] [address] 09/13/2025 9:30 AM EDT Office Visit [facility] 10 [place] [address] Conner Sneed MD [address] [place] [address] [email or web address] Scheduled Orders Name Type Priority Associated Diagnoses Orde r Schedule MCT (Mobile Cardiac Telemetry) Cardiac Monitors Routine Permanent atrial fibrillation Expected: 02/27/2022, Expires: 05/23/2022 Scheduled Procedures Name Priority Associated Diagnoses Date/Ti me PA MONITOR INSERTION IN MAINTENANCE SERVICE SUPERVISOR Systolic congestive heart failure, unspecified HF [...] documented as of this encounter Care Teams Order Entry Clerk Relationship Specialty Start Date End Date Marlene Harden NP 70 [place] [address] PCP - General Family Medicine 01/10/22 08/07/24 Cj Meyer DO 70 [place] [address] PCP - General Internal Medicine 08/08/24 Yue Rodrigez, VENKATA [address] [place] [address] [facility] Postdoctoral Research Fellow 02/21/22 06/09/23 Jennifer Dash LCSW [address] [place] [address] [facility] Social Work 02/01/23 02/11/23 Yvonne Montana [address] [place] [address] [email or web address] Community Health Worker 02/25/23 06/09/23 Dennis Temple MBBS [address] [place] [address] [email or web address] Primary Oncologist Hematology and Oncology 04/02/23 Gabriela Barnhart CNP [address] [place] [address] [email or web address] Nurse Practitioner Medical Oncology 01/16/24 documented as of this encounter Additional Source Comments The information contained in this document represents components of the legal health record. It is not the complete legal health record.[facility]
--- OUTSIDE RECORDS SUMMARY | 2025-04-12 06:40 | XMS_ITS | Clinical Summary ---
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 06/01/20 24 Active albuterol 2.5 mg /3 mL (0.083 %) nebulizer solution Take 3 mL (2.5 mg total) by nebulization every 4 (four) hours as needed for shortness of breath/dyspnea. 07/18/19 25 Active ipratropium-albu teroL (DUONEB) 0.5-3 mg (2.5 mg base)/3 mL nebulizer solution Take 3 mL by nebulization 4 (four) times a day. 07/18/19 25 Active fluticasone-umec lidin-vilanter (TRELEGY ELLIPTA) 200-62.5-25 mcg inhaler Inhale 1 puff into the lungs daily. Active oxyCODONE-acetam inophen (PERCOCET) 5-325 mg per tablet Take 1 tablet by mouth every 6 (six) hours as needed for pain (specific location in comments). Partial fill ok 10 tablet 09/01/19 25 Active levETIRAcetam (KEPPRA) 750 MG IMMEDIATE [...] on Saturday, Saturday, Saturday. 11/10/19 25 Active sacubitriL-valsa rtan (ENTRESTO) 24-26 mg per tablet Take 1 tablet by mouth 2 (two) times a day. 11/08/19 25 Active metoprolol succinate (TOPROL-XL) 25 MG 24 hr tablet Take 0.5 tablets (12.5 mg total) by mouth daily. 11/09/19 25 Active roflumilast (DALIRESP) 500 mcg TabIndications:P ulmonary nodules,Chronic respiratory failure with hypoxia TAKE 1 TABLET BY MOUTH DAILY 90 tablet 1 03/11/20 25 Active aspirin 81 MG EC tablet Take 81 mg by mouth. 03/03/20 25 026 Active clopidogrel (PLAVIX) 75 mg tablet Take 75 mg by mouth. 03/03/20 25 026 Active oxyCODONE 5 MG immediate release tablet 03/08/20 25 Active torsemide (DEMADEX) 20 MG tablet Take 20 mg by mouth daily. 03/17/20 25 Active albuterol (VENTOLIN HFA) 90 mcg/actuation inhaler Inhale 2 puffs into the lungs every 6 (six) hours as needed for wheezing. 18 g 5 10/21/19 24 025 Discontin ued(No longer taking) rivaroxaban (XARELTO) 20 mg Tab Take 1 tablet every day by oral route in the evening. 06/10/20 23 025 Discontin ued(No longer taking) torsemide (DEMADEX) 20 MG tablet 11/02/19 025 Discontin ued(No longer taking) XARELTO 10 mg tablet Take 10 mg by mouth daily. 11/18/19 025 Discontin ued(No longer taking) Active Problems Problem Noted Date Diagnosed Date [...] also going to discuss this with his set key driver in 1 month to see if he would like to proceed. Assessment & Plan (11/06/2024 4:37 PM EDT): -last stable in Aug on lasix 40 mg qd entresto 24-26 mg bid Most recent echo July showed recovered EF 65 to 70% general good cardiac function. Do not see any additional echocardiograms on the discharge paperwork from [facility] or [facility] where he has been. -gaining wt at assisted and seemed to be overdiuresed in recent [...] general good cardiac function -gaining wt at assisted and seemed to be overdiuresed in recent [...] 70% general good cardiac function During his assisted stay stay 1 month well being significantly [...] stable Also has been on steroids at assisted. This may be contributing to his weight [...] stable Also has been on steroids at assisted. Continue trellegy and duonebs. Chronic pain Continue chronic oxy Assessment & Plan (11/05/2024 1:26 AM EDT): Chronic COPD on home O2 2L and stable Also has been on steroids at assisted. Continue trellegy and duonebs. Chronic pain Continue [...] Left hemiparesis 08/05/2024 Overview (08/30/2024): Per [facility] discharge summary 08/03/24 Cerebral hemorrhage 08/04/2024 Overview (08/30/2024): Right lentiform nucleus hemorrhage Per [facility] discharge summary 08/03/24 Assessment & Plan (11/06/2024 [...] initial hospitalization 07/30/2024, after initially presenting to [facility] and had findings of acute bleed. Immediately prior to that patient had a hospitalization for COPD exacerbation and suspected seizure where patient was placed on Keppra. Was discharged on 08/03/2024 to rehab however redeveloped worsening headache, found to have worsening vasogenic edema and subsequently readmitted at [facility] on 08/08/2024. Hospital course was complicated by COPD exacerbation secondary to RSV virus with patient was subsequently discharged on a steroid taper to [facility] rehab. -- No new concerns. His DOAC [...] initial hospitalization 07/30/2024, after initially presenting to [facility] and had findings of acute bleed. Immediately prior to that patient had a hospitalization for COPD exacerbation and suspected seizure where patient was placed on Keppra. -Was discharged on 08/03/2024 to rehab however redeveloped worsening headache, found to have worsening vasogenic edema and subsequently readmitted at [facility] on 08/08/2024. Hospital course was complicated by COPD exacerbation secondary to RSV virus with patient was subsequently discharged on a steroid taper to [facility] rehab. -Through reviewing discharge records from [facility] on 08/13/2024, recommendations from neurology were [...] or leukocytosis -Ceftriaxone azithromycin -repeat chest x-ray -rug setter velvet -Supplemental oxygen Other hyperlipidemia 06/18/2024 Assessment & [...] in late September until now -labs from assisted 11 down to 7s, now in 8s. [...] weeks in september until now -labs from assisted 11 down to 7s, now in 8s, [...] september until now Labs provided by the assisted reveal a drop in hemoglobin during that [...] recheck labs in the morning Also requested Lyuobv labs Assessment & Plan (07/17/2024 5:16 PM [...] on 08/26/2024 per recommendations from neurology from [facility] upon discharge with instructions to discontinue aspirin. -- Continue Toprol-XL, amiodarone rivaroxaban Assessment & Plan (08/30/2024 6:01 PM EST): Continue amiodarone, metoprolol 50 mg, Xarelto 20 mg. Patient resume Xarelto on 08/26/2024 per recommendations from neurology from [facility] upon discharge with instructions to discontinue [...] PM EST): With rapid ventricular response. His set key driver, Dr. Morales started him on amiodarone 05/26 [...] however, shared decision to send patient to [facility] ED for evaluation/treatment to monitor closely due to above- stated signs/symptoms and hypotension. Assessment & Plan (10/15/2024 2:13 PM EDT): Patient is fluid overloaded on exam today. He has gained > 40 pounds since the last time he has been seen in the [facility] system a few months ago. He is [...] improvement, no ICD was recommended. 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 03/29/2025 Telephone [facility] [place] [address] [address], [address] [place] [address] Zack Sanchez DO 03/16/2025 9:00 AM EDT Office Visit [facility], Allergy and Critical Care Medicine 10 [place] [address] Conner Sneed MD Former smoker; Pulmonary emphysema, unspecified emphysema type 03/16/2025 Telephone [facility] [address] [place] [address] Cindy Tovar POC order 03/11/2025 Refill [facility] [address] [place] [address] [place] [address] Conner Sneed MD Medication Refill 03/03/2025 Telephone [facility] [address] [facility] [address] Floor, [address] [place] [address] Bailey Ocasio 01/22/2025 3:40 PM EDT Office Visit [facility] [address] [facility] [address] Floor, [address] [place] [address] Rehan aLndaverde MD Paroxysmal atrial fibrillation (Primary Dx) from [...] ([facility] st Contact Info) Description 05/13/2025 9:30 AM EST Appointment [facility] 30 [place] [address] Conner Sneed MD [address] [place] [address] [email or web address] 05/14/2025 1:00 PM EST Office Visit [facility] [address] [facility] [address] Floor, [address] [place] [address] Rehan Landaverde MD 50 [place] [address] 09/13/2025 9:30 AM EDT Office Visit [facility] 10 [place] [address] Conner Sneed MD [address] [place] [address] [email or web address] Scheduled Procedures Name Priority Associated Diagnoses Date/Ti me PA MONITOR INSERTION IN ELECTROPHYSIOLOGY TECHNOLOGIST Systolic congestive heart failure, unspecified HF chronicity Health Maintenance Due Date Last Done Comments HEPATITIS C SCREENING 1981 HIV ONE-TIME SCREENING (18-65 YEARS) 1981 PNEUMOCOCCAL VACCINES (50+ years) (1 of 2 - PCV) 1982 COLOGUARD 2008 FIT TEST 2008 FOBT 2008 SIGMOIDOSCOPY 2008 VIRTUAL COLONOSCOPY 2008 RSV VACCINE (1 - Risk 50-74 years 1-dose series) 2013 ZOSTER VACCINES (1 of 2) 2013 DEPRESSION SCREENING 03/28/2023 03/28/2022 INFLUENZA VACCINE (#1) 2025 , 05/05/2022, 04/18/2016 COVID-19 VACCINE (3 - season) 2025 11/29/2020, 11/29/2020 BLOOD PRESSURE 09/26/2025 [...] this topic Medical Devices Implanted Type Area Winch Truck Operator Device Identifier Shelf Expiration Date Model [...] EDT) TSH 3.65 0.27 - 4.20 uIU/mL [facility] Blood 11/07/2024 5:31 AM EDT 11/07/2024 6:00 AM EDT us Giuliano Adan MD LAB BLOOD ORDERABLES Final Result [address] [address] * (ABNORMAL) Comprehensive metabolic panel (11/05/2024 5:57 AM EDT) SODIUM 139 133 - 146 mmol/L [facility] POTASSIUM 3.6 3.3 - 5.1 mmol/L [facility] CHLORIDE 97 96 - 108 mmol/L [facility] CO2 32 21 - 35 mmol/L [facility] BUN 39(H) 6 - 19 mg/dL [facility] CREATININE 1.90(H) 0.5 - 1.5 mg/dL [facility] GLUCOSE 112(H) 70 - 99 mg/dL [facility] ALBUMIN 3.2(L) 3.9 - 4.8 g/dL [facility] TOTAL PROTEIN 6.2(L) 6.5 - 8.0 g/dL [facility] CALCIUM 8.5 8.4 - 10.3 mg/dL [facility] ALKALINE PHOSPHATASE 91 39 - 117 U/L [facility] TOTAL BILIRUBIN <0.2 0.0 - 1.2 mg/dL [facility] AST 16 0 - 37 U/L [facility] ALT 14 0 - 40 U/L [facility] GLOBULIN 3.0 1 - 4.8 g/dL [facility] EGFR 40(L) >59 mL/min/1.7 3m2 [facility] Comment:Estimated glomerular filtration rate calculated using the CKD-EPI refit equation. ANION GAP 14 10 - 20 mmol/L [facility] Blood 11/05/2024 5:57 AM EDT 11/05/2024 6:34 AM EDT us Anastacia Dietrich MD LAB BLOOD ORDERABLES Final Result [facility] [address] [place] [address] * ENDOSCOPY, COLON (02/22/2023 1:37 PM EDT) Narrative Transcriptions Ioana Armijo MD - 02/22/2023 1:37 PM EDT [facility] Patient Name: Yousif Mcnamara MD:: IOANA ARMIJO MD, Procedure Date: 02/22/2023 1:37 PM Date of : 1965 Age: 57 Admit Type: Inpatient Gender: Male Room: [place] [address] Referring MD: SHANIKA MONTEMAYOR NP Exam Type: [...] 1:37 PM Procedure Code(s): --- Professional --- 45373, Colonoscopy, flexible; diagnostic, including collection of specimen(s) by brushing or washing, when performed (separateprocedure) --- Technical --- 73431, Colonoscopy, flexible; diagnostic, including collection of specimen(s) by brushing or washing, when performed (separateprocedure) Diagnosis Code(s): --- Professional --- D50.9, Iron deficiency anemia, unspecified --- Technical --- D50.9, Iron deficiency anemia, unspecified CPT copyright 2021 [employer]. All rights reserved. The codes documented in this report are preliminary and upon tank operator reviewmay be revised to meet current compliance requirements. Procedure Date: 02/22/2023 1:37:04 PM [address] [place] [address] Shanika Montemayor NP GI PROCEDURE ORDERABLES Final R esult from Last 3 Months or Most Recently Relevant to Health Maintenance Insurance [facility] MEDIC[facility] PART A & B [place] B Member Subscriber Plan / Payer (Ef fective 2023-) Name:Yousif Orellana Member ID:[id number] Relation to Subscriber:Self Name:Yousif Orellana Subscriber ID:[id number] Payer ID:[id number] Group ID:Not on file Type:Medicare Address: [place] [address] [facility] & B [place] MEDICARE PART A & B [place] [employer] Advance Directives For more information, please contact: [phone] (9AM - 5PM [facility], Saturday-Saturday) Documents on File Type Date Recorded Patient Electron Microscopist Expl anation Healthcare Proxy 07/22/2024 3:40 PM [...] Agent (Proxy form on file) Care Teams Dredge Pump Operator Relationship Specialty Start Date End Date Cj Meyer DO [address] [place] [address] PCP - General Internal Medicine 08/08/24 Dennis Temple MBBS [email or web address] Primary Oncologist Hematology and Oncology 04/02/23 Gabriela Barnhart CNP [address] [place] [address] [email or web address] Nurse Practitioner Medical Oncology 01/16/24 Additional Source Comments The information contained in this document represents components of the legal health record. It is not the complete legal health record.[facility]
[2025-04-12 06:45] LABS: Hematocrit 31.7 % (42.0-52.0); Hemoglobin 10.0 g/dl (14.0-18.0); Imm Gran Abs Auto 0.28 X10*3/uL (0.00-0.03); Imm Gran Pct Auto 2.7 % (0.0-0.4); Lymphocytes Absolute Auto 2.2 X10*3/uL (1.2-4.9); Mean Corpuscular HGB Conc 31.5 g/dl (31.0-36.0); Mean Corpuscular Hemoglobin 26.1 pg (27.0-33.0); Mean Corpuscular Volume 82.8 fL (80.0-98.0); NRBC Abs Auto 0.000 X10*3/uL (0.0-0.012); NRBC Pct Auto 0.0 /100WBC (0.0-0.2); Platelet Count 326 X10*3/uL (160-400); Red Blood Count 3.83 X10*6/uL (4.60-5.80); White Blood Count 10.3 X10*3/uL (4.8-10.8)
[2025-04-12 07:01] LABS: Anion Gap 12 (12-20); Blood Urea Nitrogen 22 mg/dL (9-16); Calcium 9.0 mg/dL (8.4-10.2); Carbon Dioxide 29 mmol/L (22-29); Chloride 103 mmol/L (96-108); Estimated Glomerular Filt Rate > 60; Potassium 3.9 mmol/L (3.3-5.1); Sodium 140 mmol/L (135-145)
== END 2025-04-12 06:37 | disposition home or self-care (01) ==
LOC: HO.MMNH1L 06:36
PROVIDERS: Visit Provider Family Medicine
DX: J96.21 Acute and chronic respiratory failure with hypoxia (principal); E46 Unspecified protein-calorie malnutrition; J44.1 Chronic obstructive pulmonary disease with (acute) exacerbation
CPT/HCPCS: 36415; 80048; 85025

== ENCOUNTER 2025-04-19 07:27 | Outpatient (REF) | payer MEDICARE, SELFPAY ==
[2025-04-19 06:46] LABS: MANUAL DIFF FLAG NO
[2025-04-19 07:22] LABS: Hematocrit 30.6 % (42.0-52.0); Hemoglobin 9.7 g/dl (14.0-18.0); Imm Gran Abs Auto 0.21 X10*3/uL (0.00-0.03); Imm Gran Pct Auto 2.3 % (0.0-0.4); Lymphocytes Absolute Auto 1.8 X10*3/uL (1.2-4.9); Mean Corpuscular HGB Conc 31.7 g/dl (31.0-36.0); Mean Corpuscular Hemoglobin 25.9 pg (27.0-33.0); Mean Corpuscular Volume 81.8 fL (80.0-98.0); NRBC Abs Auto 0.000 X10*3/uL (0.0-0.012); NRBC Pct Auto 0.0 /100WBC (0.0-0.2); Platelet Count 339 X10*3/uL (160-400); Red Blood Count 3.74 X10*6/uL (4.60-5.80); White Blood Count 9.0 X10*3/uL (4.8-10.8)
--- OUTSIDE RECORDS SUMMARY | 2025-04-19 07:29 | XMS_ITS | Encounter Summary ---
Author Organization [facility] Address [address] [place] [address] Phone Care Team Providers Care Group Segment Consultant Name Role Phone Marlene Harden UTILITY INSPECTOR Primary Care Provider [phone] Yue Rodrigez RN Unavailable Yvonne Montana Unavailable [email or web address] Dennis Temple MBBS Unavailable [phone] Gabriela Barnhart TARGET NETWORK ANALYST Unavailable Cj Meyer DO Primary Care Provider [phone] Encounter Details Date Type Department Care Team (Late st Contact Info) Description 02/22/2023 Procedure Pass [facility] Endoscopy Admitting Dept Virtual Department 30 [place] [address] Social History Tobacco Use Types Packs/Day Years Used Date Smoking Tobacco: Every Day Cigarettes 0.5 49.1 Started: 03/28/1976 Smokeless Tobacco: Never Comments:Started using [...] AM EST Appointment [facility] PFT Lab 30 [place] [address] Conner Sneed MD [address] [place] [address] [email or web address] 05/14/2025 1:00 PM EST Office Visit [facility] [address] [facility] 3rd Floor, [address] [place] [address] Rehan Landaverde MD 50 [place] [address] 09/13/2025 9:30 AM EDT Office Visit [facility] All[facility] Critical [facility] 10 [place] [address] Conner Sneed MD [address] [place] [address] [email or web address] Scheduled Procedures Name Priority Associated Diagnoses Date/Ti me PA MONITOR INSERTION IN RECREATION THERAPY AIDES TEACHER Systolic congestive heart failure, unspecified HF [...] documented as of this encounter Care Teams Group Segment Consultant Relationship Specialty Start Date End Date Marlene Harden NP 70 [place] [address] PCP - General Family Medicine 01/10/22 08/07/24 Cj Meyer DO 70 [place] [address] PCP - General Internal Medicine 08/08/24 Yue Rodrigez RN [address] [place] [address] PHCM Business Process Consultant 02/21/22 06/09/23 Yvonne Montana 10 [place] [address] PHCM Community Health Worker 02/25/23 06/09/23 Dennis Temple MBBS [address] [place] [address] [email or web address] Primary Oncologist Hematology and Oncology 04/02/23 Gabriela Barnhart CNP [address] [place] [address] Nurse Practitioner Medical Oncology 01/16/24 documented as of this encounter Additional Source Comments The information contained in this document represents components of the legal health record. It is not the complete legal health record.[facility]
--- OUTSIDE RECORDS SUMMARY | 2025-04-19 07:29 | XMS_ITS | Encounter Summary ---
Author Organization [facility] Address [address] [place] [address] Phone Care Team Providers Care Senior Application Software Engineer Name Role Phone Olegario Guy MD Primary Care Provider [phone] Marlene Harden SOUND EFFECTS TECHNICIAN Primary Care Provider Yue Rodrigez RN Unavailable Jennifer Dash FIRE INVESTIGATION LIEUTENANT Unavailable [email or web address] Yvonne Montana Unavailable Dennis Temple MBBS Unavailable Gabriela Barnhart COMMUNICATION STUDIES PROFESSOR Unavailable Cj Meyer DO Primary Care Provider Encounter Details Date Type Department Care Team (Latest Contact Info) Description 11/25/2019 Transcribe Orders Virtual Department 30 [place] [address] Marlene Harden, SOUND EFFECTS TECHNICIAN [address] [place], [place] [id number] Atypical chest pain (Primary Dx) Social History [...] AM EST Appointment [facility] PFT Lab 30 [place] [address] Conner Sneed MD [address] [address] [email or web address] 05/14/2025 1:00 PM EST Office Visit [facility] [address] [facility] [address] [facility], [address] [place] [address] Rehan Landaverde MD 50 [place] [address] 09/13/2025 9:30 AM EDT Office Visit [facility] All[facility] 10 [facility] [address] Conner Sneed MD [address] [address] [email or web address] Scheduled Procedures Name Priority Associated Diagnoses Date/Ti me PA MONITOR INSERTION IN INTERNAL COMBUSTION ENGINE ASSEMBLER Systolic congestive heart failure, unspecified HF [...] as of this encounter Care Teams Senior Application Software Engineer Relationship Specialty Start Date End Date Olegario Guy MD [address] [facility] [address] [place] [address] [email or web address] PCP - General Family Medicine 03/28/20 01/09/22 Marlene Harden NP [address] [place] [address] PCP - General Family Medicine 01/10/22 08/07/24 Cj Meyer DO [address] [place] [address] PCP - General Internal Medicine 08/08/24 Yue Rodrigez RN [address] [place] [address] [email or web address] PHCM Prototype Technician 02/21/22 06/09/23 Jennifer Dash LCSW [address] [place] [address] [email or web address] PHCM Residential Designer 02/01/23 02/11/23 Yvonne Montana [address] [place] [address] [email or web address] PHCM Community Health Worker 02/25/23 06/09/23 Dennis Temple MBBS [address] [place] [address] [email or web address] Primary Oncologist Hematology and Oncology 04/02/23 Gabriela Barnhart CNP [address] [place] [address] [email or web address] Nurse Practitioner Medical Oncology 01/16/24 documented as of this encounter Additional Source Comments The information contained in this document represents components of the legal health record. It is not the complete legal health record.[facility]
--- OUTSIDE RECORDS SUMMARY | 2025-04-19 07:29 | XMS_ITS | Encounter Summary ---
Author Organization [facility] Address [address] [place] [address] Phone Care Team Providers Care Multimedia Instructional Designer Name Role Phone Dereck Marlene Mook DIRECTOR PRODUCT DEVELOPMENT Primary Care Provider [phone] Yue Rodrigez RN Unavailable Jennifer Dash DRY CLEANING MANAGER Unavailable felisa Yvonne Montana Unavailable Dennis Temple MBBS Unavailable [phone] Gabriela Barnhart LICENSING REGISTRATION EXAMINER Unavailable Cj Meyer DO Primary Care Provider [phone] Encounter Details Date Type Department Care Team (Late st Contact Info) Description 12/13/2022 Procedure Pass [facility], Ct Scan - [address] [address] Social History Tobacco Use Types Packs/Day Years [...] AM EST Appointment [facility] PFT Lab 30 [place] [address] Conner Sneed MD [address] [place] [address] [email or web address] 05/14/2025 1:00 PM EST Office Visit [facility] [address] [facility] 3rd Floor, [address] [place] [address] Rehan Landaverde MD [address] [place] [address] 09/13/2025 9:30 AM EDT Office Visit [facility] 10 [place] [address] Conner Sneed MD [address] [place] [address] [email or web address] Scheduled Procedures Name Priority Associated Diagnoses Date/Ti me PA MONITOR INSERTION IN SEWAGE PLANT OPERATOR Systolic congestive heart failure, unspecified [...] documented as of this encounter Care Teams Multimedia Instructional Designer Relationship Specialty Start Date End Date Marlene Harden NP 70 [place] [address] PCP - General Family Medicine 01/10/22 08/07/24 Cj Meyer DO 70 [place] [address] PCP - General Internal Medicine 08/08/24 Yue Rodrigez, VENKATA [address] [place] [address] PHC Electronics Technician 02/21/22 06/09/23 Jennifer Dash LCSW [address] [place] [address] PHCM Executive Personal Assistant 02/01/23 02/11/23 Yvonne Montana [address] [place] [address] PHCM Community Health Worker 02/25/23 06/09/23 Dennis Temple MBBS [address] [place] [address] [email or web address] Primary Oncologist Hematology and Oncology 04/02/23 Gabriela Barnhart CNP [address] [place] [address] [email or web address] Nurse Practitioner Medical Oncology 01/16/24 documented as of this encounter Additional Source Comments The information contained in this document represents components of the legal health record. It is not the complete legal health record.[facility]
--- OUTSIDE RECORDS SUMMARY | 2025-04-19 07:29 | XMS_ITS | Encounter Summary ---
Author Organization [facility] Address [address] [place] [address] Phone Care Team Providers Care Plow Mechanic Name Role Phone Dereck Marlene Delvalle PHOTOGRAPH FINISHER Primary Care Provider Dennis Temple MBBS Unavailable [phone] Gabriela Barnhart PORTER BAGGAGE Unavailable Cj Meyer DO Primary Care Provider [phone] Encounter Details Date Type Department Care Team (Late st Contact Info) Description 07/28/2024 Procedure Pass [facility], Ct Scan - [address] [id number] Social History Tobacco Use Types Packs/Day Years [...] 9:13 PM EST Adrian Herrera, VENKATA * [place] Suicide Severity Rating Scale (Screener/Recent Self-Report) Question [...] AM EST Appointment [facility] PFT Lab 30 [place] [address] Conner Sneed MD [address] [place] [address] [email or web address] 05/14/2025 1:00 PM EST Office Visit [facility] [address] [facility] 3rd Floor, [address] [place] [address] Rehan Landaverde MD 50 [place] [address] 09/13/2025 9:30 AM EDT Office Visit [facility] All[facility] Critical [facility] 10 [place] [address] Conner Sneed MD [address] [place] [address] [email or web address] Scheduled Procedures Name Priority Associated Diagnoses Date/Ti me PA MONITOR INSERTION IN HEEL SORTER Systolic congestive heart failure, unspecified HF [...] documented as of this encounter Care Teams Plow Mechanic Relationship Specialty Start Date End Date Marlene Harden NP 70 [place] [address] PCP - General Family Medicine 01/10/22 08/07/24 Cj Meyer DO 70 [place] [address] PCP - General Internal Medicine 08/08/24 Dennis Temple MBBS 70 [place] [address] [email or web address] Primary Oncologist Hematology and Oncology 04/02/23 Gabriela Barnhart CNP [address] [place] [address] [email or web address] Nurse Practitioner Medical Oncology 01/16/24 documented as of this encounter Additional Source Comments The information contained in this document represents components of the legal health record. It is not the complete legal health record.[facility]
--- OUTSIDE RECORDS SUMMARY | 2025-04-19 07:29 | XMS_ITS | Encounter Summary ---
Author Organization [facility] Address [address] [facility] [address] [place] [address] Phone Care Team Providers Care Solar Systems Designer Name Role Phone Olegario Guy MD Primary Care Provider Marlene Harden NP Primary Care Provider [phone] Yue Rodrigez RN Unavailable Jennifer Dash PROBATION WORKER Unavailable [email or web address] Yvonne Montana Unavailable Dennis Temple MBBS Unavailable Gabriela Barnhart CLEAN IN PLACES OPERATOR Unavailable Cj Meyer DO Primary Care Provider [phone] Encounter Details Date Type Department Care Team (Latest Contact Info) Description 03/28/2020 Transcribe Orders Virtual Department 30 [place] [address] Jie Wu NP [address] [place] [phone] [email or web address] Neck pain (Primary Dx) Social History Tobacco [...] AM EST Appointment [facility] PFT Lab 30 [place] [address] Conner Sneed MD [address] [address] [email or web address] 05/14/2025 1:00 PM EST Office Visit [facility] [address] [facility] 3rd Floor, [address] [place] [address] Rehan Landaverde MD [address] [place] [address] 09/13/2025 9:30 AM EDT Office Visit [facility] 10 [facility] [place] [address] Conner Sneed MD [address] [place] [address] [email or web address] Scheduled Procedures Name Priority Associated Diagnoses Date/Ti me PA MONITOR INSERTION IN NEWS LIBRARIAN Systolic congestive heart failure, unspecified HF chronicity [...] stable. No evidence of instability. POS - [id number] Narrative 04/01/2020 9:03 AM EDT HISTORY: Left [...] is stable. No evidence ofinstability. POS - [id number] Jie Wu OPERATIONS TECH IMG XR SPINE Final Result documented in [...] as of this encounter Care Teams Solar Systems Designer Relationship Specialty Start Date End Date Olegario Guy MD [address] [facility] [address] [place] [address] [email or web address] PCP - General Family Medicine 03/28/20 01/09/22 Marlene Harden, OPERATIONS TECH 70 [place] [address] PCP - General Family Medicine 01/10/22 08/07/24 Cj Meyer DO [address] [place] [address] PCP - General Internal Medicine 08/08/24 Yue Rodrigez, VENKATA [address] [place] [address] PHCM Finish Painter 02/21/22 06/09/23 Jennifer Dash LCSW [address] [place] [address] PHCM Window Unit Air Conditioning Mechanic 02/01/23 02/11/23 Yvonne Montana [address] [place] [address] [email or web address] PHCM Community Health Worker 02/25/23 06/09/23 Dennis Temple MBBS [address] [place] [address] [email or web address] Primary Oncologist Hematology and Oncology 04/02/23 Gabriela Barnhart CNP [address] [place] [address] Nurse Practitioner Medical Oncology 01/16/24 documented as of this encounter Additional Source Comments The information contained in this document represents components of the legal health record. It is not the complete legal health record.[facility]
--- OUTSIDE RECORDS SUMMARY | 2025-04-19 07:29 | XMS_ITS | Encounter Summary ---
Author Organization [facility] Address [address] [place] [address] Phone Care Team Providers Care Authorization Representative Name Role Phone DereckMarlene Mook CARBON BRUSHES ASSEMBLER Primary Care Provider [phone] Dennis Temple MBBS Unavailable [phone] Gabriela Barnhart STATEMENT DISTRIBUTION CLERK Unavailable Cj Meyer DO Primary Care Provider [phone] Encounter Details Date Type Department Care Team (Late st Contact Info) Description 07/17/2024 Procedure Pass [facility] Echo Lab [address] [place] [address] Social History Tobacco Use Types Packs/Day Years [...] 07/17/2024 1:48 PM Sofy Harry RN * [place] Suicide Severity Rating Scale (Screener/Recent Self-Report) Question [...] AM EST Appointment [facility] PFT Lab 30 [place] [address] Conner Sneed MD [address] [address] [email or web address] 05/14/2025 1:00 PM EST Office Visit [facility] [address] [facility] 3rd Floor, [address] [place] [address] Rehan Landaverde MD [address] [place] [address] 09/13/2025 9:30 AM EDT Office Visit [facility] All[facility] Critical [facility] Medicine 10 [place] [address] Conner Sneed MD [address] [place] [address] [email or web address] Scheduled Procedures Name Priority Associated Diagnoses Date/Ti nh PA MONITOR INSERTION IN CHECKOUT OPERATOR Systolic congestive heart failure, unspecified HF [...] documented as of this encounter Care Teams Authorization Representative Relationship Specialty Start Date End Date Marlene Harden NP 70 [place] [address] PCP - General Family Medicine 01/10/22 08/07/24 Cj Meyer DO 70 [place] [address] PCP - General Internal Medicine 08/08/24 Dennis Temple MBBS 70 [place] [address] [email or web address] Primary Oncologist Hematology and Oncology 04/02/23 Gabriela Barnhart CNP 30 [place] [address] [email or web address] Nurse Practitioner Medical Oncology 01/16/24 documented as of this encounter Additional Source Comments The information contained in this document represents components of the legal health record. It is not the complete legal health record.[facility]
--- OUTSIDE RECORDS SUMMARY | 2025-04-19 07:29 | XMS_ITS | Encounter Summary ---
Author Organization [facility] Address [address] [facility] [address] [place] [address] Phone Care Team Providers Care Corporate Vp Advertising & Online Name Role Phone Marlene Harden SEXUAL ASSAULT COUNSELLOR Primary Care Provider Yue Rodrigez RN Unavailable Jennifer Dash SURVEYOR'S ASSISTANT Unavailable felisa Yvonne Montana Unavailable Dennis Temple MBBS Unavailable [phone] Gabriela Barnhart LABORER BEAM HOUSE Unavailable Cj Meyer DO Primary Care Provider Encounter Details Date Type Department Care Team (Late st Contact Info) Description 09/03/2022 Procedure Pass [facility], Ct Scan - [address] [address] Social History Tobacco Use Types Packs/Day Years [...] AM EST Appointment [facility] PFT Lab [address] [place] [address] Conner Sneed MD 10 [facility] 2nd [place] [address] [email or web address] 05/14/2025 1:00 PM EST Office Visit [facility] 22 [facility] 3rd Floor, [address] [place] [address] Rehan Landaverde MD 50 [place] [address] 09/13/2025 9:30 AM EDT Office Visit [facility] All[facility] Critical [facility] 10 [facility] [place] [place] [address] Conner Sneed MD [address] [address] [email or web address] Scheduled Procedures Name Priority Associated Diagnoses Date/Ti me PA MONITOR INSERTION IN COMBER TENDER Systolic congestive heart failure, unspecified HF [...] documented as of this encounter Care Teams Corporate Vp Advertising & Online Relationship Specialty Start Date End Date Marlene Harden NP 70 [place] [address] PCP - General Family Medicine 01/10/22 08/07/24 Cj Meyer DO 70 [place] [address] PCP - General Internal Medicine 08/08/24 Yue Rodrigez, VENKATA [address] [place] [address] PHCM Informatics Scientist 02/21/22 06/09/23 Jennifer Dash LCSW [address] [place] [address] PHCM Lead Manufacturing Technician 02/01/23 02/11/23 Yvonne Montana [address] [place] [address] PHC Community Health Worker 02/25/23 06/09/23 Dennis Temple MBBS [address] [place] [address] [email or web address] Primary Oncologist Hematology and Oncology 04/02/23 Gabriela Barnhart CNP [address] [place] [address] Nurse Practitioner Medical Oncology 01/16/24 documented as of this encounter Additional Source Comments The information contained in this document represents components of the legal health record. It is not the complete legal health record.[facility]
--- OUTSIDE RECORDS SUMMARY | 2025-04-19 07:29 | XMS_ITS | Encounter Summary ---
Author Organization [facility] Address [address] [place] [address] Phone Care Team Providers Care Adult Remedial Education Instructor Name Role Phone Temple, Ahmastu Mccann MBBS Unavailable [phone] Pack, Gabriela SLAB WORKER Unavailable Cj Meyer DO Primary Care Provider [phone] Encounter Details Date Type Department Care Team (Late st Contact Info) Description 08/08/2024 Procedure Pass [facility], Ct Scan - [facility] 30 [place] [address] Social History Tobacco Use Types Packs/Day Years [...] 3:25 PM Maria E Timmons RN * [place] Suicide Severity Rating Scale (Screener/Recent Self-Report) Question [...] AM EST Appointment [facility] PFT Lab 30 [place] [address] Conner Sneed MD [address] [place] [address] [email or web address] 05/14/2025 1:00 PM EST Office Visit [facility] 22 [facility] 3rd Floor, [address] [place] [address] Rehan Landaverde MD 50 [place] [address] 09/13/2025 9:30 AM EDT Office Visit [facility] All[facility] Critical [facility] 10 [place] [address] Conner Sneed MD [address] [place] [address] [email or web address] Scheduled Procedures Name Priority Associated Diagnoses Date/Ti me PA MONITOR INSERTION IN POKER PROP PLAYER Systolic congestive heart failure, unspecified HF chronicity [...] as of this encounter Care Teams Adult Remedial Education Instructor Relationship Specialty Start Date End Date Cj Meyer DO [address] [place] [address] PCP - General Internal Medicine 08/08/24 Dennis Temple MBBS [email or web address] Primary Oncologist Hematology and Oncology 04/02/23 Gabriela Barnhart CNP 30 [place] [address] [email or web address] Nurse Practitioner Medical Oncology 01/16/24 documented as of this encounter Additional Source Comments The information contained in this document represents components of the legal health record. It is not the complete legal health record.[facility]
--- OUTSIDE RECORDS SUMMARY | 2025-04-19 07:29 | XMS_ITS | Encounter Summary ---
Author Organization [facility] Address [address] [place] [address] Phone Care Team Providers Care Drug Safety Physician Name Role Phone Dereck Marlene Mook MERCHANDISE FLOW ASSOCIATE Primary Care Provider [phone] Yue Rodrigez RN Unavailable Jennifer Dash PLASTIC TILE LAYER Unavailable felisa Yvonne Montana Unavailable Dennis Temple MBBS Unavailable [phone] Gabriela Barnhart PUSHER RUNNER Unavailable Cj Meyer DO Primary Care Provider [phone] Encounter Details Date Type Department Care Team (Late st Contact Info) Description 12/13/2022 Procedure Pass [facility], Ct Scan - [address] [address] Social History Tobacco Use Types Packs/Day Years [...] AM EST Appointment [facility] 30 [place] [address] Conner Sneed MD [address] [place] [address] [email or web address] 05/14/2025 1:00 PM EST Office Visit [facility] [address] [facility] 3rd Floor, [address] [place] [address] Rehan Landaverde MD [address] [place] [address] 09/13/2025 9:30 AM EDT Office Visit [facility] 10 [place] [address] Conner Sneed MD [address] [place] [address] [email or web address] Scheduled Procedures Name Priority Associated Diagnoses Date/Ti me PA MONITOR INSERTION IN PICKUP DRIVER Systolic congestive heart failure, unspecified HF [...] documented as of this encounter Care Teams Drug Safety Physician Relationship Specialty Start Date End Date Marlene [place] NP 70 [place] [address] PCP - General Family Medicine 01/10/22 08/07/24 Cj Meyer DO 70 [place] [address] PCP - General Internal Medicine 08/08/24 Yue Rodrigez, VENKATA [address] [place] [address] PHC Graining Press Operator 02/21/22 06/09/23 Jennifer Dash LCSW [address] [place] [address] PHCM Director Of Home Economics 02/01/23 02/11/23 Yvonne Montana [address] [place] [address] PHCM Community Health Worker 02/25/23 06/09/23 Dennis Temple MBBS [address] [place] [address] [email or web address] Primary Oncologist Hematology and Oncology 04/02/23 Gabriela Barnhart CNP [address] [place] [address] [email or web address] Nurse Practitioner Medical Oncology 01/16/24 documented as of this encounter Additional Source Comments The information contained in this document represents components of the legal health record. It is not the complete legal health record.[facility]
--- OUTSIDE RECORDS SUMMARY | 2025-04-19 07:29 | XMS_ITS | Encounter Summary ---
Author Organization [facility] Address [address] [place] [address] Phone Care Team Providers Care Frame Builder Name Role Phone Dereck Marlene Delvalle CANCER PROGRAM COORDINATOR Primary Care Provider Dennis Temple MBBS Unavailable Gabriela Barnhart WEB SITE MANAGER Unavailable Cj Meyer DO Primary Care Provider [phone] Encounter Details Date Type Department Care Team (Late st Contact Info) Description 07/18/2024 Procedure Pass [facility] Emergency Department, [facility] [address] [place] [address] Social History Tobacco Use Types [...] AM EST Appointment [facility] 30 [place] [address] Conner Sneed MD [address] [place] [address] [email or web address] 05/14/2025 1:00 PM EST Office Visit [facility] [address] 3rd Floor, [address] [place] [address] Rehan Landaverde MD [address] [place] [address] 09/13/2025 9:30 AM EDT Office Visit [facility] 10 [facility] [place] [address] Conner Sneed MD 10 [facility] 2nd [place] [address] [email or web address] Scheduled Procedures Name Priority Associated Diagnoses Date/Ti me PA MONITOR INSERTION IN CFO Systolic congestive heart failure, unspecified HF chronicity [...] documented as of this encounter Care Teams Frame Builder Relationship Specialty Start Date End Date Marlene [place] NP 70 [place] [address] PCP - General Family Medicine 01/10/22 08/07/24 Cj Meyer DO 70 [place] [address] PCP - General Internal Medicine 08/08/24 Dennis Temple MBBS [address] [place] [address] [email or web address] Primary Oncologist Hematology and Oncology 04/02/23 Gabriela Barnhart CNP [address] [place] [address] [email or web address] Nurse Practitioner Medical Oncology 01/16/24 documented as of this encounter Additional Source Comments The information contained in this document represents components of the legal health record. It is not the complete legal health record.[facility]
--- OUTSIDE RECORDS SUMMARY | 2025-04-19 07:29 | XMS_ITS | Encounter Summary ---
Author Organization [facility] Address [address] [place] [address] Phone Care Team Providers Care Chicken Raiser Name Role Phone Marlene Harden HOSPITAL SALES REPRESENTATIVE Primary Care Provider [phone] Yue Rodrigez RN Unavailable Yvonne Montana Unavailable [email or web address] Dennis Temple MBBS Unavailable [phone] Gabriela Barnhart POT ANNEALER Unavailable Cj Meyer DO Primary Care Provider [phone] Encounter Details Date Type Department Care Team (Late st Contact Info) Description 03/03/2023 Procedure Pass [facility], Ct Scan - [address] [address] Social History Tobacco Use Types Packs/Day Years [...] 3:07 PM EDT Alycia Mahajan RN * Treasure Suicide Severity Rating Scale (Screener/Recent Self-Report) Question [...] AM EST Appointment [facility] 30 [place] [address] Conner Sneed MD [address] [place] [address] 2nd [place] [address] [email or web address] 05/14/2025 1:00 PM EST Office Visit [facility] 22 [facility] 3rd Floor, [address] [place] [address] Rehan Landaverde MD 50 [place] [address] 09/13/2025 9:30 AM EDT Office Visit [facility] 10 [place] [address] Conner Sneed MD [address] [address] [email or web address] Scheduled Procedures Name Priority Associated Diagnoses Date/Ti me PA MONITOR INSERTION IN LABORATORY TECHNOLOGIST Systolic congestive heart failure, unspecified HF [...] documented as of this encounter Care Teams Chicken Raiser Relationship Specialty Start Date End Date Marlene [place] NP 70 [place] [address] PCP - General Family Medicine 01/10/22 08/07/24 Cj Meyer DO 70 [place] [address] PCP - General Internal Medicine 08/08/24 Yue Rodrigez, VENKATA [address] [place] [address] PHCM Gas Cutting Machine Operator 02/21/22 06/09/23 Yvonne Montana [address] [place] [address] PHCM Community Health Worker 02/25/23 06/09/23 Dennis Temple MBBS [address] [place] [address] [email or web address] Primary Oncologist Hematology and Oncology 04/02/23 Gabriela Barnhart CNP [address] [place] [address] [email or web address] Nurse Practitioner Medical Oncology 01/16/24 documented as of this encounter Additional Source Comments The information contained in this document represents components of the legal health record. It is not the complete legal health record.[facility]
--- OUTSIDE RECORDS SUMMARY | 2025-04-19 07:29 | XMS_ITS | Encounter Summary ---
Author Organization [facility] Address [address] [facility] [address] [place] [address] Phone Care Team Providers Care Filling Hauler Weaving Name Role Phone Olegario Guy MD Primary Care Provider [phone] Marlene [place] NP Primary Care Provider [phone] Yue Rodrigez RN Unavailable Jennifer Dash CHANGE MANAGEMENT FACILITATOR Unavailable [email or web address] Yvonne Montana Unavailable Dennis Temple MBBS Unavailable Gabriela Barnhart DIVER ASSISTANT Unavailable Cj Meyer DO Primary Care Provider [phone] Reason for Referral * MRI/CAT Scan - Closed Specialty Diagnoses / Procedures Referred By Contac t Referred To Contact Radiology Diagnoses Cervical radiculopathy Procedures MRI Cervical Spine Jie Wu NP Phone: tel: fax: [email or web address] Referral ID Status Reason Start Date Expiration Date Visits Re quested Visits Authorized [id number] Closed 03/21/2020 04/04/2020 1 1 Encounter Details Date Type Department Care Team (Latest Contact Info) Description 03/28/2020 Transcribe Orders [address] [address] Jie Wu NP 271 [place] [address] [email or web address] Cervical radiculopathy (Primary Dx) Social History Tobacco [...] AM EST Appointment [facility] 30 [place] [address] Conner Sneed MD [address] [place] [address] [email or web address] 05/14/2025 1:00 PM EST Office Visit [facility] [address] [facility] 3rd Floor, [address] [place] [address] Rehan Landaverde MD 50 [place] [address] 09/13/2025 9:30 AM EDT Office Visit [facility] 10 [facility] [place] [address] Conner Sneed MD [address] [address] [email or web address] Scheduled Procedures Name Priority Associated Diagnoses Date/Ti me PA MONITOR INSERTION IN LIFE SCIENCE TEACHER Systolic congestive heart failure, unspecified HF [...] protrusionidentified. POS - [id number] us Jie Wu SUGAR REPROCESS OPERATOR HEAD IMG MR XSPECIALTY Final Result documented in [...] documented as of this encounter Care Teams Filling Hauler Weaving Relationship Specialty Start Date End Date Olegario Guy MD [address] [place] [address] [address] [place] [address] [email or web address] PCP - General Family Medicine 03/28/20 01/09/22 Marlene [place] NP 70 [place] [address] PCP - General Family Medicine 01/10/22 08/07/24 Cj Meyer DO [address] [place] [address] PCP - General Internal Medicine 08/08/24 Yue Rodrigez, VENKATA [address] [place] [address] PHCM Junior Linux Administrator 02/21/22 06/09/23 Jennifer Dash LCSW [address] [place] [address] [email or web address] PHCM Production Tech 02/01/23 02/11/23 Yvonne Montana [address] [place] [address] [email or web address] PHC Community Health Worker 02/25/23 06/09/23 Dennis Temple MBBS [address] [place] [address] [email or web address] Primary Oncologist Hematology and Oncology 04/02/23 Gabriela Barnhart CNP [address] [place] [address] [email or web address] Nurse Practitioner Medical Oncology 01/16/24 documented as of this encounter Additional Source Comments The information contained in this document represents components of the legal health record. It is not the complete legal health record.[facility]
--- OUTSIDE RECORDS SUMMARY | 2025-04-19 07:29 | XMS_ITS | Encounter Summary ---
Author Organization [facility] Address [address] [place] [address] Phone Care Team Providers Care Therapeutic Dietitian Name Role Phone Dereck Marlene Delvalle LEAF SORTER Primary Care Provider [phone] Dennis Temple MBBS Unavailable Gabriela Barnhart CORPORATE SCHEDULER Unavailable Cj Meyer DO Primary Care Provider [phone] Encounter Details Date Type Department Care Team (Late st Contact Info) Description 07/18/2024 Procedure Pass [facility], [address] [address] Social History Tobacco Use Types Packs/Day Years [...] AM EST Appointment [facility] 30 [place] [address] Conner Sneed MD [address] [place] [address] [email or web address] 05/14/2025 1:00 PM EST Office Visit [facility] [address], [address] [place] [address] Rehan Landaverde MD [address] [place] [address] 09/13/2025 9:30 AM EDT Office Visit [facility] 10 [place] [address] Conner Sneed MD 10 [facility] 2nd [place] [address] [email or web address] Scheduled Procedures Name Priority Associated Diagnoses Date/Ti me PA MONITOR INSERTION IN CIVIL STRUCTURAL ENGINEER Systolic congestive heart failure, unspecified HF [...] documented as of this encounter Care Teams Therapeutic Dietitian Relationship Specialty Start Date End Date Marlene H[place] NP 70 [place] [address] PCP - General Family Medicine 01/10/22 08/07/24 Cj Meyer DO 70 [place] [address] PCP - General Internal Medicine 08/08/24 Dennis Temple MBBS [address] [place] [address] [email or web address] [email or web address] Primary Oncologist Hematology and Oncology 04/02/23 Gabriela Barnhart CNP [address] [place] [address] [email or web address] Nurse Practitioner Medical Oncology 01/16/24 documented as of this encounter Additional Source Comments The information contained in this document represents components of the legal health record. It is not the complete legal health record.[facility]
--- OUTSIDE RECORDS SUMMARY | 2025-04-19 07:29 | XMS_ITS | Encounter Summary ---
Author Organization [facility] Address [address] [facility] [address] [place] [address] Phone Care Team Providers Care Lump Roller Name Role Phone Olegario Guy MD Primary Care Provider [phone] Marlene Harden NP Primary Care Provider [phone] Yue Rodrigez RN Unavailable Jennifer Dash FARMER DIVERSIFIED CROPS Unavailable [email or web address] Yvonne Montana Unavailable [email or web address] Dennis Temple MBBS Unavailable Gabriela Barnhart NURSE INFECTION CONTROL Unavailable Cj Meyer DO Primary Care Provider Encounter Details Date Type Department Care Team (Late st Contact Info) Description 03/28/2020 Procedure Pass [facility], [address] [address] Social History Tobacco Use Types Packs/Day Years [...] AM EST Appointment [facility] 30 [place] [address] Conner Sneed MD 10 [facility] 2nd [place] [address] [email or web address] 05/14/2025 1:00 PM EST Office Visit [facility] 22 [facility] 3rd Floor, [address] [place] [address] Rehan Landaverde MD [address] [place] [address] 09/13/2025 9:30 AM EDT Office Visit [facility] 10 [place] [address] Conner Sneed MD [address] [place] [address] [email or web address] Scheduled Procedures Name Priority Associated Diagnoses Date/Ti me PA MONITOR INSERTION IN KINDERGARTEN TEACHER Systolic congestive heart failure, unspecified HF [...] documented as of this encounter Care Teams Lump Roller Relationship Specialty Start Date End Date Olegario Guy MD [address] [facility] [address] [place] [address] [email or web address] PCP - General Family Medicine 03/28/20 01/09/22 Marlene Harden NP 70 [place], [place] PCP - General Family Medicine 01/10/22 08/07/24 Cj Meyer DO [address] [place] [address] PCP - General Internal Medicine 08/08/24 Yue Rodrigez, RN [address] [place] [address] PHCM Body Mechanic Apprentice 02/21/22 06/09/23 Jennifer Dash LCSW [address] [place] [address] PHCM Meat Cutting Teacher 02/01/23 02/11/23 Yvonne Montana [address] [place] [address] PHCM Community Health Worker 02/25/23 06/09/23 Dennis Temple MBBS [address] [place] [address] [email or web address] Primary Oncologist Hematology and Oncology 04/02/23 Gabriela Barnhart, NURSE INFECTION CONTROL [address] [place] [address] [email or web address] Nurse Practitioner Medical Oncology 01/16/24 documented as of this encounter Additional Source Comments The information contained in this document represents components of the legal health record. It is not the complete legal health record.[facility]
--- OUTSIDE RECORDS SUMMARY | 2025-04-19 07:29 | XMS_ITS | Encounter Summary ---
Author Organization [facility] Address [address] [place] [address] Phone Care Team Providers Care Ball Rolling Machine Operator Name Role Phone Dereck Marlene Delvalle PURCHASING MANAGER Primary Care Provider Dennis Temple MBBS Unavailable [phone] Gabriela Barnhart RIVETER PORTABLE MACHINE Unavailable Cj Meyer DO Primary Care Provider Encounter Details Date Type Department Care Team (Late st Contact Info) Description 07/18/2024 Procedure Pass [facility], Ct Scan - [address] [address] Social History Tobacco Use Types Packs/Day Years [...] AM EST Appointment [facility] 30 [place] [address] Conner Sneed MD [address] [place] [address] [email or web address] 05/14/2025 1:00 PM EST Office Visit [facility] [address] [place] [address] 3rd Floor, [address] [place] [address] Rehan Landaverde MD [address] [place] [address] 09/13/2025 9:30 AM EDT Office Visit [facility] 10 [place] [address] Conner Sneed MD [address] [address] [email or web address] Scheduled Procedures Name Priority Associated Diagnoses Date/Ti me PA MONITOR INSERTION IN CORPORATION OFFICER Systolic congestive heart failure, unspecified HF [...] documented as of this encounter Care Teams Ball Rolling Machine Operator Relationship Specialty Start Date End Date Marlene Harden NP 70 [place] [address] PCP - General Family Medicine 01/10/22 08/07/24 Cj Meyer DO 70 [place] [address] PCP - General Internal Medicine 08/08/24 Dennis Temple MBBS [address] [place] [address] [email or web address] [email or web address] Primary Oncologist Hematology and Oncology 04/02/23 Gabriela Barnhart CNP [address] [place] [address] [email or web address] Nurse Practitioner Medical Oncology 01/16/24 documented as of this encounter Additional Source Comments The information contained in this document represents components of the legal health record. It is not the complete legal health record.[facility]
[2025-04-19 07:30] LABS: Anion Gap 13 (12-20); Blood Urea Nitrogen 25 mg/dL (9-16); Calcium 9.0 mg/dL (8.4-10.2); Carbon Dioxide 31 mmol/L (22-29); Chloride 101 mmol/L (96-108); Estimated Glomerular Filt Rate 59; Potassium 4.3 mmol/L (3.3-5.1); Sodium 141 mmol/L (135-145)
--- OUTSIDE RECORDS SUMMARY | 2025-04-19 07:30 | XMS_ITS | Clinical Summary ---
Author Organization [facility] Address [address] [place] [address] Care Team Providers Care Specification Manager Name Role Phone Marlene Harden NP Primary Care Provider [phone] Social History Tobacco Use Types Packs/Day Years [...] patient's age to complete this topic Insurance [facility] Plan Care Teams Specification Manager Relationship Specialty Start Date End Date Marlene Harden NP 70 [place] [address] PCP - General Nurse Practitioner 03/05/23
--- OUTSIDE RECORDS SUMMARY | 2025-04-19 07:30 | XMS_ITS | Encounter Summary ---
Author Organization [facility] Address [address] [place] [address] Phone Care Team Providers Care Collet Making Machine Operator Name Role Phone Marlene Harden NP Primary Care Provider Yue Rodrigez RN Unavailable Jennifer Dash METAL WORKER Unavailable felisa Yvonne Montana Unavailable Dennis Temple MBBS Unavailable [phone] Gabriela Barnhart MANAGER SKILLED Unavailable Cj Meyer DO Primary Care Provider Encounter Details Date Type Department Care Team (Late st Contact Info) Description 03/15/2022 Procedure Pass [facility], Ct Scan - [address] [address] Social History Tobacco Use Types Packs/Day Years Used Date Smoking Tobacco: Every Day Cigarettes 1.5 49.1 Started: 03/28/1976 Smokeless Tobacco: Never Comments:Started [...] AM EST Appointment [facility] [address] [address] Conner Sneed MD [address] [address] [email or web address] 05/14/2025 1:00 PM EST Office Visit [facility] [address] [facility] 3rd Floor, [address] [place] [address] Rehan Landaverde MD [address] [place] [address] 09/13/2025 9:30 AM EDT Office Visit [facility] 10 [facility] [place] [address] Conner Sneed MD [address] [address] [email or web address] Scheduled Procedures Name Priority Associated Diagnoses Date/Ti me PA MONITOR INSERTION IN DISTRICT AGENT Systolic congestive heart failure, unspecified HF [...] documented as of this encounter Care Teams Collet Making Machine Operator Relationship Specialty Start Date End Date Marlene Harden NP 70 [place] [address] PCP - General Family Medicine 01/10/22 08/07/24 Cj Meyer DO 70 [place] [address] PCP - General Internal Medicine 08/08/24 Yue Rodrigez, VENKATA [address] [place] [address] PHCM Conventional Mortgage Underwriter 02/21/22 06/09/23 Jennifer Dash LCSW [address] [place] [address] PHCM Senior Designer 02/01/23 02/11/23 Yvonne Montana [address] [place] [address] PHC Community Health Worker 02/25/23 06/09/23 Dennis Temple MBBS [address] [place] [address] [email or web address] Primary Oncologist Hematology and Oncology 04/02/23 Gabriela Barnhart CNP [address] [place] [address] Nurse Practitioner Medical Oncology 01/16/24 documented as of this encounter Additional Source Comments The information contained in this document represents components of the legal health record. It is not the complete legal health record.[facility]
--- OUTSIDE RECORDS SUMMARY | 2025-04-19 07:30 | XMS_ITS | Encounter Summary ---
Author Organization [facility] Address [address] [facility] [address] [place] [address] Phone Care Team Providers Care Painter Barrel Name Role Phone Marlene Harden NP Primary Care Provider [phone] Yue Rodrigez RN Unavailable Jennifer Dash RADIOLOGIC TECHNICIAN Unavailable [email or web address] Yvonne Montana Unavailable Dennis Temple MBBS Unavailable [phone] Gabriela Barnhart PRINT CUTTER Unavailable Cj Meyer DO Primary Care Provider [phone] Reason for Referral * - Closed Specialty Diagnoses / Procedures Referred By Contflorentin t Referred To Contact Diagnoses Permanent atrial fibrillation Procedures MCT (Mobile Cardiac Telemetry) Zack Sanchez DO Phone: tel: fax: mailto: Referral ID Status Reason Start Date Expiration Date Visits Re quested Visits Authorized [id number] Closed 04/11/2022 04/11/2023 1 1 Encounter Details Date Type Department Care Team (Latest Contact Info) Description 04/11/2022 Ancillary Orders [facility] [address] [facility] 3rd Floor, [address] [place] [address] Zack Sanchez DO [address] [address] [email or web address] Permanent atrial fibrillation Social History Tobacco Use Types Packs/Day Years Used Date Smoking Tobacco: Every Day Cigarettes 1.5 49.1 Started: 03/28/1976 Smokeless Tobacco: Never Comments:using nicotine [...] AM EST Appointment [facility] 30 [place] [address] Conner Sneed MD [address] [place] [address] [email or web address] 05/14/2025 1:00 PM EST Office Visit [facility] [address] [place] [address], [address] [place] [address] Rehan Landaverde MD [address] [place] [address] 09/13/2025 9:30 AM EDT Office Visit [facility] 10 [place] [address] Conner Sneed MD [address] [place] [address] [email or web address] Scheduled Orders Name Type Priority Associated Diagnoses Orde r Schedule MCT (Mobile Cardiac Telemetry) Cardiac Monitors Routine Permanent atrial fibrillation Expected: 02/27/2022, Expires: 05/23/2022 Scheduled Procedures Name Priority Associated Diagnoses Date/Ti me PA MONITOR INSERTION IN ATG JAVA DEVELOPER Systolic congestive heart failure, unspecified HF [...] documented as of this encounter Care Teams Painter Barrel Relationship Specialty Start Date End Date Marlene Harden NP 70 [place] [address] PCP - General Family Medicine 01/10/22 08/07/24 Cj Meyer DO 70 [place] [address] PCP - General Internal Medicine 08/08/24 Yue Rodrigez, RN [address] [place] [address] PHCM Weigher Packing 02/21/22 06/09/23 Jennifer Dash LCSW [address] [place] [address] PHCM Social Media Editor 02/01/23 02/11/23 Yvonne Montana [address] [place] [address] [email or web address] PHCM Community Health Worker 02/25/23 06/09/23 Dennis Temple MBBS [address] [place] [address] [email or web address] Primary Oncologist Hematology and Oncology 04/02/23 Gabriela Barnhart CNP [address] [place] [address] [email or web address] Nurse Practitioner Medical Oncology 01/16/24 documented as of this encounter Additional Source Comments The information contained in this document represents components of the legal health record. It is not the complete legal health record.[facility]
--- OUTSIDE RECORDS SUMMARY | 2025-04-19 07:30 | XMS_ITS | Encounter Summary ---
Author Organization [facility] Address [address] [facility] [place] [address] Phone Care Team Providers Care Hand Bander Name Role Phone Temple, Ahmastu Mccann MBBS Unavailable [phone] Pack, Gabriela DEBT MANAGEMENT COUNSELOR Unavailable Cj Meyer DO Primary Care Provider [phone] Encounter Details Date Type Department Care Team (Late st Contact Info) Description 08/30/2024 Procedure Pass [facility], Ct Scan - [facility] 30 [place] [address] Social History Tobacco Use Types Packs/Day Years [...] AM EST Appointment [facility] 30 [place] [address] Conner Sneed MD [address] [address] [email or web address] 05/14/2025 1:00 PM EST Office Visit [facility] [address], [address] [place] [address] Rehan Landaverde MD 50 [place] [address] 09/13/2025 9:30 AM EDT Office Visit [facility] 10 [facility] [place] [address] Conner Sneed MD 10 [facility] 2nd [place] [address] [email or web address] Scheduled Procedures Name Priority Associated Diagnoses Date/Ti me PA MONITOR INSERTION IN PASSENGER REPRESENTATIVE Systolic congestive heart failure, unspecified HF chronicity documented as of this encounter Visit Diagnoses Not on filedocumented in this encounter Additional Health Concerns Infection Onset Date Last Indicated Resolved Time CoV-Risk Comment:Per note documentation 08/29/2024 08/29/2024 7:27 AM EST Assessment Noted Time PHQ-2 Depression Total Score: 2 03/28/20 22 11:32 AM EDT documented as of this encounter Care Teams Hand Bander Relationship Specialty Start Date End Date Cj Meyer DO [address] [place] [address] PCP - General Internal Medicine 08/08/24 Dennis Temple MBBS [email or web address] Primary Oncologist Hematology and Oncology 04/02/23 Gabriela Barnhart CNP 30 [place] [address] Nurse Practitioner Medical Oncology 01/16/24 documented as of this encounter Additional Source Comments The information contained in this document represents components of the legal health record. It is not the complete legal health record.[facility]
--- OUTSIDE RECORDS SUMMARY | 2025-04-19 07:30 | XMS_ITS | Encounter Summary ---
Author Organization [facility] Address [address] [place] [address] Phone Care Team Providers Care Cashier Supervisor Name Role Phone Temple, Ahmastu Mccann MBBS Unavailable Pack, Gabriela CERAMIC CAPACITOR PROCESSOR Unavailable Cj Meyer DO Primary Care Provider [phone] Encounter Details Date Type Department Care Team (Late st Contact Info) Description 08/30/2024 Procedure Pass [facility], Ct Scan - [facility] 30 [place] [address] Social History Tobacco Use Types Packs/Day Years [...] AM EST Appointment [facility] 30 [place] [address] Conner Sneed MD [address] [address] [email or web address] 05/14/2025 1:00 PM EST Office Visit [facility] [address], [address] [place] [address] Rehan Landaverde MD 50 [place] [address] 09/13/2025 9:30 AM EDT Office Visit [facility] 10 [facility] [place] [address] Conner Sneed MD 10 [facility] 2nd [place] [address] [email or web address] Scheduled Procedures Name Priority Associated Diagnoses Date/Ti me PA MONITOR INSERTION IN THORACIC SURGEON Systolic congestive heart failure, unspecified HF chronicity documented as of this encounter Visit Diagnoses Not on filedocumented in this encounter Additional Health Concerns Infection Onset Date Last Indicated Resolved Time CoV-Risk Comment:Per note documentation 08/29/2024 08/29/2024 7:27 AM EST Assessment Noted Time PHQ-2 Depression Total Score: 2 03/28/20 22 11:32 AM EDT documented as of this encounter Care Teams Cashier Supervisor Relationship Specialty Start Date End Date Cj Meyer DO [address] [place] [address] PCP - General Internal Medicine 08/08/24 Dennis Temple MBBS [email or web address] Primary Oncologist Hematology and Oncology 04/02/23 Gabriela Barnhart CNP 30 [place] [address] Nurse Practitioner Medical Oncology 01/16/24 documented as of this encounter Additional Source Comments The information contained in this document represents components of the legal health record. It is not the complete legal health record.[facility]
--- OUTSIDE RECORDS SUMMARY | 2025-04-19 07:30 | XMS_ITS | Encounter Summary ---
Author Organization [facility] Address [address] [facility] [address] [place] [address] Phone Care Team Providers Care Grocery Sacker Name Role Phone Olegario Guy MD Primary Care Provider [phone] Marlene Harden NP Primary Care Provider Yue Rodrigez RN Unavailable Jennifer Dash TRUST VAULT CLERK Unavailable ndelabar Yvonne Montana Unavailable Dennis Temple MBBS Unavailable Gabriela Barnhart INVOICE CODER Unavailable Cj Meyer DO Primary Care Provider Encounter Details Date Type Department Care Team (Late st Contact Info) Description 01/05/2022 Procedure Pass [facility], Ct Scan - [facility] 30 [place] [address] Social History Tobacco Use Types Packs/Day Years [...] AM EST Appointment [facility] 30 [place] [address] Conner Sneed MD [address] [address] [email or web address] 05/14/2025 1:00 PM EST Office Visit [facility], [address] [place] [address] Rehan Landaverde MD 50 [place] [address] 09/13/2025 9:30 AM EDT Office Visit [facility] 10 [facility] [address] Conner Sneed MD [address] [address] [email or web address] Scheduled Procedures Name Priority Associated Diagnoses Date/Ti dc PA MONITOR INSERTION IN GEAR TOOTH GRINDING MACHINE OPERATOR Systolic congestive heart failure, [...] as of this encounter Care Teams Grocery Sacker Relationship Specialty Start Date End Date Olegario Guy MD [address] [facility] [address] [place] [address] PCP - General Family Medicine 03/28/20 01/09/22 Marlene Harden NP 70 [place] [address] PCP - General Family Medicine 01/10/22 08/07/24 Cj Meyer DO [address] [place] [address] PCP - General Internal Medicine 08/08/24 Yue Rodrigez, VENKATA [address] [place] [address] PHCM Athletic Coach 02/21/22 06/09/23 Jennifer Dash LCSW [address] [place] [address] PHCM Passenger Service Manager 02/01/23 02/11/23 Yvonne Montana [address] [place] [address] PHCM Community Health Worker 02/25/23 06/09/23 Dennis Temple MBBS [address] [place] [address] [email or web address] Primary Oncologist Hematology and Oncology 04/02/23 Gabirela Barnhart CNP [address] [place] [address] Nurse Practitioner Medical Oncology 01/16/24 documented as of this encounter Additional Source Comments The information contained in this document represents components of the legal health record. It is not the complete legal health record.[facility]
--- OUTSIDE RECORDS SUMMARY | 2025-04-19 07:30 | XMS_ITS | Encounter Summary ---
Author Organization [facility] Address [address] [facility] [address] [place] [address] Phone Care Team Providers Care Fur Dry Cleaner Name Role Phone Olegario Guy MD Primary Care Provider [phone] Marlene Harden NP Primary Care Provider [phone] Yue Rodrigez RN Unavailable Jennifer Dash UNIT OPERATOR Unavailable ndelabar Yvonne Montana Unavailable Dennis Temple MBBS Unavailable [phone] Gabriela Barnhart BARIATRIC COORDINATOR Unavailable Cj Meyer DO Primary Care Provider [phone] Reason for Referral * MRI/CAT Scan - Closed Specialty Diagnoses / Procedures Referred By Contflorentin t Referred To Contact Radiology Diagnoses Abnormal chest x-ray Procedures CT Chest Marlene Harden NP Phone: tel: Referral ID Status Reason Start Date Expiration Date Visits Re quested Visits Authorized [id number] Closed 01/05/2022 01/05/2023 1 1 Encounter Details Date Type Department Care Team (Latest Contact Info) Description 01/05/2022 Transcribe Orders Virtual Department 30 [place] [address] Marlene Harden NP [address] [place] [address] Abnormal chest x-ray (Primary Dx) Social History [...] AM EST Appointment [facility] 30 [place] [address] Conner Sneed MD [address] [address] [email or web address] 05/14/2025 1:00 PM EST Office Visit [facility] 22 [facility] 3rd Floor, [address] [place] [address] Rehan Landaverde MD [address] [place] [address] 09/13/2025 9:30 AM EDT Office Visit [facility] 10 [place] [address] Conner Sneed MD [address] [place] [address] [email or web address] Scheduled Procedures Name Priority Associated Diagnoses Date/Ti me PA MONITOR INSERTION IN SLEEP LAB TECHNOLOGIST Systolic congestive heart failure, unspecified HF [...] documented as of this encounter Care Teams Fur Dry Cleaner Relationship Specialty Start Date End Date Olegario Guy MD [address] [place] [address] [address] [place] [address] [email or web address] PCP - General Family Medicine 03/28/20 01/09/22 Marlene Harden NP 70 [place] [address] PCP - General Family Medicine 01/10/22 08/07/24 Cj Meyer DO 70 [place] [address] PCP - General Internal Medicine 08/08/24 Yue Rodrigez, RN [address] [place] [address] PHCM Palletizer Operator 02/21/22 06/09/23 Jennifer Dash LCSW [address] [place] [address] [email or web address] PHCM Correction Officer 02/01/23 02/11/23 Yvonne Montana [address] [place] [email or web address] PHC Community Health Worker 02/25/23 06/09/23 Dennis Temple MBBS [address] [place] [address] [email or web address] Primary Oncologist Hematology and Oncology 04/02/23 Gabriela Barnhart CNP [address] [place] [address] [email or web address] Nurse Practitioner Medical Oncology 01/16/24 documented as of this encounter Additional Source Comments The information contained in this document represents components of the legal health record. It is not the complete legal health record.[facility]
--- OUTSIDE RECORDS SUMMARY | 2025-04-19 07:30 | XMS_ITS | Encounter Summary ---
Author Organization [facility] Address [address] [facility] [address] [place] [address] Phone Care Team Providers Care Food Checker Name Role Phone Marlene Harden NP Primary Care Provider Yue Rodrigez RN Unavailable Jennifer Dash LOCOMOTIVE OILER Unavailable felisa Yvonne Montana Unavailable Dennis Temple MBBS Unavailable [phone] Gabriela Barnhart LINOTYPE OPERATOR Unavailable Cj Meyer DO Primary Care Provider [phone] Encounter Details Date Type Department Care Team (Late st Contact Info) Description 05/29/2022 Procedure Pass [facility] Cardiovascular And Interventional Radiology 30 [place] [address] Social History Tobacco Use Types Packs/Day Years [...] AM EST Appointment [facility] [address] [place] [address] Conner Sneed MD [address] [address] [email or web address] 05/14/2025 1:00 PM EST Office Visit [facility] [address] [facility] 3rd Floor, [address] [place] [address] Rehan Landaverde MD [address] [place] [address] 09/13/2025 9:30 AM EDT Office Visit [facility] 10 [facility] [place] [address] Conner Sneed MD [address] [address] [email or web address] Scheduled Procedures Name Priority Associated Diagnoses Date/Ti me PA MONITOR INSERTION IN ANIMAL CAREGIVER Systolic congestive heart failure, unspecified HF [...] Noted Time PHQ-2 Depression Total Score: 2 09/21/20 22 11:32 AM EDT documented as of this encounter Care Teams Food Checker Relationship Specialty Start Date End Date Marlene Harden NP 70 [place], [place] PCP - General Family Medicine 01/10/22 08/07/24 Cj Meyer DO 70 [place], [place] PCP - General Internal Medicine 08/08/24 Yue Rodirgez, VENKATA [address] [place] [address] PHC Gas Plant Repairer 02/21/22 06/09/23 Jennifer Dash LCSW [address] [place] [address] PHCM Fish And Wildlife Scientific Aid 02/01/23 02/11/23 Yvonne Montana [address] [place] [email or web address] PHC Community Health Worker 02/25/23 06/09/23 Dennis Temple MBBS [address] [place] [address] [email or web address] Primary Oncologist Hematology and Oncology 04/02/23 Gabriela Barnhart CNP [address] [place] [address] Nurse Practitioner Medical Oncology 01/16/24 documented as of this encounter Additional Source Comments The information contained in this document represents components of the legal health record. It is not the complete legal health record.[facility]
--- OUTSIDE RECORDS SUMMARY | 2025-04-19 07:30 | XMS_ITS | Encounter Summary ---
Author Organization [facility] Address [address] [facility] [address] [place] [address] Phone Care Team Providers Care Safety Counselor Name Role Phone Olegario Guy MD Primary Care Provider Marlene Harden LIGHT BULB TESTER Primary Care Provider uYe Rodrigez RN Unavailable Jennifer Dash ACCOUNTING POLICY CONSULTANT Unavailable ndelabar Yvonne Montana Unavailable Dennis Temple MBBS Unavailable [phone] Gabriela Barnhart CHARTER SCHOOL EXECUTIVE DIRECTOR Unavailable Cj Meyer DO Primary Care Provider [phone] Encounter Details Date Type Department Care Team (Latest Contact Info) Description 01/02/2022 Transcribe Orders Virtual Department 30 [place] [address] Marlene Harden, CAM [address] [place], [place] [id number] Shortness of breath (Primary Dx); Dyspnea, unspecified [...] Info) Description 05/13/2025 9:30 AM EST Appointment [facility] PFT Lab 30 [place] [address] Conner Sneed MD [address] [address] [email or web address] 05/14/2025 1:00 PM EST Office Visit [facility] [address], [address] [place] [address] Rehan Landaverde MD [address] [place] [address] 09/13/2025 9:30 AM EDT [facility] Pulmonary, Allergy and Critical Care Medicine 10 [place] [address] Conner Sneed MD [address] [place] [address] [email or web address] Scheduled Procedures Name Priority Associated Diagnoses Date/Ti me PA MONITOR INSERTION IN RECORD FILING CLERK Systolic congestive heart failure, unspecified HF chronicity documented as of this encounter Results * Pulmonary Function Test Reason for Exam: Dyspnea/Shortness of Breath; Type of PFT Test: Spirometry with bronchodilator, DLCO, Lung Volumes; Performing Location: [facility] (05/21/2022 3:49 PM EST) FEV1 1.08 liters [...] criteria. Clinical and radiographic correlation advised. Result [facility] Marlene Harden NP PFT ORDERABLES Final Result [...] documented as of this encounter Care Teams Safety Counselor Relationship Specialty Start Date End Date Olegario Guy MD 230 [facility] [address] [place] [address] [email or web address] PCP - General Family Medicine 03/28/20 01/09/22 Marlene Harden LIGHT BULB TESTER 70 [place] [address] PCP - General Family Medicine 01/10/22 08/07/24 Cj Meyer DO [address] [place] [address] PCP - General Internal Medicine 08/08/24 Yue Rodrigez RN [address] [place] [address] PHCM Stem Threshing Machine Operator 02/21/22 06/09/23 Jennifer Dash LCSW [address] [place] [address] [email or web address] PHCM Blast Furnace Supervisor 02/01/23 02/11/23 Yvonne Montana [address] [place] [address] [email or web address] PHC Community Health Worker 02/25/23 06/09/23 Dennis Temple MBBS [address] [place] [address] [email or web address] Primary Oncologist Hematology and Oncology 04/02/23 Gabriela Barnhart CNP [address] [place] [address] [email or web address] Nurse Practitioner Medical Oncology 01/16/24 documented as of this encounter Additional Source Comments The information contained in this document represents components of the legal health record. It is not the complete legal health record.[facility]
--- OUTSIDE RECORDS SUMMARY | 2025-04-19 07:30 | XMS_ITS | Encounter Summary ---
Author Organization [facility] Address [address] [facility] [address] [place] [address] Phone Care Team Providers Care Nutrition Associate Name Role Phone Marlene Harden MECHANIST Primary Care Provider Yue Rodrigez RN Unavailable Jennifer Dash CARRIER BLOWER Unavailable felisa Yvonne Montana Unavailable Dennis Temple MBBS Unavailable [phone] Gabriela Barnhart PITTING MACHINE OPERATOR Unavailable Cj Meyer DO Primary Care Provider [phone] Encounter Details Date Type Department Care Team (Late st Contact Info) Description 05/14/2022 Transcribe Orders [facility] 30 [place] [address] Marlene Harden NP [address] [place], [place] [id number] Social History Tobacco Use Types Packs/Day Years [...] AM EST Appointment [facility] [address] [place] [address] Conner Sneed MD 10 [facility] 2nd [place] [address] [email or web address] 05/14/2025 1:00 PM EST Office Visit [facility] [address] [facility] 3rd Floor, [address] [place] [address] Rehan Landaverde MD 50 [place] [address] 09/13/2025 9:30 AM EDT Office Visit [facility] 10 [facility] [place] [address] Conner Sneed MD [address] [address] [email or web address] Scheduled Procedures Name Priority Associated Diagnoses Date/Ti me PA MONITOR INSERTION IN PHYSICIST NUCLEAR Systolic congestive heart failure, unspecified HF chronicity [...] documented as of this encounter Care Teams Nutrition Associate Relationship Specialty Start Date End Date Marlene Harden NP 70 [place] [address] PCP - General Family Medicine 01/10/22 08/07/24 Cj Meyer DO 70 [place] [address] PCP - General Internal Medicine 08/08/24 Yue Rodrigez RN [address] [place] [address] PHC Agricultural Research Engineer 02/21/22 06/09/23 Jennifer Dash LCSW [address] [place] [address] PHCM Infrastructure Analyst 02/01/23 02/11/23 Yvonne Montana [address] [place] [address] [email or web address] PHC Community Health Worker 02/25/23 06/09/23 Dennis Temple MBBS [address] [place] [address] [email or web address] Primary Oncologist Hematology and Oncology 04/02/23 Gabriela Barnhart CNP [address] [place] [address] Nurse Practitioner Medical Oncology 01/16/24 documented as of this encounter Additional Source Comments The information contained in this document represents components of the legal health record. It is not the complete legal health record.[facility]
--- OUTSIDE RECORDS SUMMARY | 2025-04-19 07:30 | XMS_ITS | Clinical Summary ---
Author Organization [facility] Address [address] [place] [phone] Phone Care Team Providers Care Letterpress Printing Machinist Name Role Phone Temple, Ahmastu Mccann MBBS Unavailable [phone] [employer] DIRECTOR OF FOOD AND BEVERAGE SERVICES Unavailable Cj Meyer DO Primary Care Provider Allergies Active Allergy Reactions Criticality Noted Date [...] (LIPITOR) 40 MG tabletIndication s:Atherosclerosi s of pamunkey coronary artery of pamunkey heart without angina pectoris TAKE 1 TABLET BY MOUTH EVERY DAY 90 tablet 3 3 Active amiodarone (PACERONE) 200 MG tabletIndication s:Paroxysmal atrial fibrillation TAKE 1 TABLET BY MOUTH EVERY DAY 90 tablet 3 3 Active buPROPion (WELLBUTRIN SR) 150 MG SR [...] Partial fill ok 10 tablet 5 Active levETIRAcetam (KEPPRA) 750 MG [...] mg total) by mouth daily. 5 Active roflumilast (DALIRESP) 500 mcg TabIndications:P ulmonary nodules,Chronic respiratory failure with hypoxia TAKE 1 TABLET BY MOUTH DAILY 90 tablet 1 5 Active aspirin 81 MG EC tablet Take 81 mg by mouth. 5 Active clopidogrel (PLAVIX) 75 mg tablet Take 75 mg by mouth. 5 026 Active oxyCODONE 5 MG immediate release tablet 5 Active torsemide (DEMADEX) 20 MG tablet Take 20 mg by mouth daily. 5 Active Active Problems Problem Noted Date [...] also going to discuss this with his rolled ham lacer in 1 month to see if he would like to proceed. Assessment & Plan (11/06/2024 4:37 PM EDT): -last stable in Aug on lasix 40 mg qd entresto 24-26 mg bid Most recent echo July showed recovered EF 65 to 70% general good cardiac function. Do not see any additional echocardiograms on the discharge paperwork from [facility] or [facility] where he has been. -gaining wt at custodial and seemed to be [...] general good cardiac function -gaining wt at custodial and seemed to be [...] 70% general good cardiac function During his custodial stay stay 1 month well being significantly [...] stable Also has been on steroids at custodial. This may be contributing to his weight [...] stable Also has been on steroids at custodial. Continue kulwinder. Chronic pain Continue chronic oxy Assessment & Plan (11/05/2024 1:26 AM EDT): Chronic COPD on home O2 2L and stable Also has been on steroids at custodial. Continue kulwinder. Chronic pain Continue chronic oxy [...] Overview (08/30/2024): Right lentiform nucleus hemorrhage Per [facility] discharge summary 08/03/24 Assessment & Plan [...] initial hospitalization 07/30/2024, after initially presenting to [facility] and had findings of acute bleed. Immediately prior to that patient had a hospitalization for COPD exacerbation and suspected seizure where patient was placed on Keppra. Was discharged on 08/03/2024 to rehab however redeveloped worsening headache, found to have worsening vasogenic edema and subsequently readmitted at [facility] on 08/08/2024. Hospital course was complicated by COPD exacerbation secondary to RSV virus with patient was subsequently discharged on a steroid taper to [facility] rehab. -- No new concerns. His [...] initial hospitalization 07/30/2024, after initially presenting to [facility] and had findings of acute bleed. Immediately prior to that patient had a hospitalization for COPD exacerbation and suspected seizure where patient was placed on Keppra. -Was discharged on 08/03/2024 to rehab however redeveloped worsening headache, found to have worsening vasogenic edema and subsequently readmitted at [facility] on 08/08/2024. Hospital course was complicated by COPD exacerbation secondary to RSV virus with patient was subsequently discharged on a steroid taper to [facility] rehab. -Through reviewing discharge records from [facility] on 08/13/2024, recommendations from neurology were to [...] or leukocytosis -Ceftriaxone azithromycin -repeat chest x-ray -stallion manager -Supplemental oxygen Other hyperlipidemia 06/18/2024 Assessment & [...] in late September until now -labs from custodial 11 down to 7s, now in 8s. [...] in late September until now -labs from custodial 11 down to 7s, now [...] September until now Labs provided by the custodial reveal a drop in hemoglobin during that [...] 08/26/2024 per recommendations from neurology from [facility] upon discharge with instructions to discontinue aspirin. -- Continue Toprol-XL, amiodarone rivaroxaban Assessment & Plan (08/30/2024 6:01 PM EST): Continue amiodarone, metoprolol 50 mg, Xarelto 20 mg. Patient resume Xarelto on 08/26/2024 per recommendations from neurology from [facility] upon discharge with instructions to discontinue aspirin. [...] PM EST): With rapid ventricular response. His rolled ham lacer, Dr. Morales started him on amiodarone 05/26 [...] however, shared decision to send patient to [facility] ED for evaluation/treatment to monitor closely due [...] improvement, no ICD was recommended. Follow-up with rolled ham lacer in 3 months once resulted, sooner for [...] Type Department Care Team Description 03/30/2025 Telephone [facility] Pulmonary, Allergy and Critical Care Medicine [address] [place] [address] Conner Sneed MD 03/29/2025 10:15 AM EDT Office Visit [facility] [address] [place] [address] Zack Sanchez DO Acute systolic congestive heart failure, NYHA class 3 (Primary Dx); Symptomatic anemia; PAF (paroxysmal atrial fibrillation); Atherosclerosis of pamunkey coronary artery of pamunkey heart without angina pectoris 03/29/2025 Telephone [facility] [address], [address] [place] [address] Zack Sanchez DO 03/16/2025 9:00 AM EDT Office Visit [facility] Pul[facility], Allergy and Critical Care Medicine [address] [place] [address] Conner Sneed MD Former smoker; Pulmonary emphysema, unspecified emphysema type 03/16/2025 Telephone [facility] Pulmonary, Allergy and Critical Care Medicine [address] [place] [address] Cindy Tovar POC order 03/11/2025 Refill [facility] Pulmonary, Allergy and Critical Care Medicine [address] [place] [address] Conner Sneed MD Medication Refill 03/03/2025 Telephone [facility] [address], [address] [place] [address] Bailey Ocasio 01/22/2025 3:40 PM EDT Office Visit [facility] [address], [address] [place] [address] Rehan Landaverde MD Paroxysmal atrial fibrillation (Primary [...] AM EST Appointment [facility] [address] [place] [address] Conner Sneed MD [address] [address] [email or web address] 05/14/2025 1:00 PM EST Office Visit [facility] [address] [facility] [address]rd Floor, [address] [place] [address] Rehan Landaverde MD [address] [place] [phone] 09/13/2025 9:30 AM EDT Office Visit [facility] Pulmonary, Allergy and Critical Care Medicine [address] [facility] [place] [address] Conner Sneed MD [address] [place] [phone] [email or web address] Scheduled Procedures Name Priority Associated Diagnoses Date/Ti me PA MONITOR INSERTION IN TANKROOM TENDER Systolic congestive heart failure, unspecified HF [...] this topic Medical Devices Implanted Type Area Prevention Rn Device Identifier Shelf Expiration Date Model / [...] Laterality Modality Chest Computed Tomogra phy 12/25/2024 3:2 6 PM EDT Impressions 12/25/2024 3:32 PM EDT [...] clinician's provided indication for this examination in [facility]: Lung Cancer Screening - FORMER smoker, [...] clinician's provided indication for this examination in [facility]:Lung Cancer Screening - FORMER smoker, quit [...] EDT) TSH 3.65 0.27 - 4.20 uIU/mL [facility] Blood 11/07/2024 5:31 AM EDT 11/07/2024 6:00 AM EDT us Giuliano Adan MD LAB BLOOD ORDERABLES Final Result [address] [address] * (ABNORMAL) Comprehensive metabolic panel (11/05/2024 5:57 AM EDT) SODIUM 139 133 - 146 mmol/L [facility] POTASSIUM 3.6 3.3 - 5.1 mmol/L [facility] CHLORIDE 97 96 - 108 mmol/L [facility] CO2 32 21 - 35 mmol/L [facility] BUN 39(H) 6 - 19 mg/dL [facility] CREATININE 1.90(H) 0.5 - 1.5 mg/dL [facility] GLUCOSE 112(H) 70 - 99 mg/dL [facility] ALBUMIN 3.2(L) 3.9 - 4.8 g/dL [facility] TOTAL PROTEIN 6.2(L) 6.5 - 8.0 g/dL [facility] CALCIUM 8.5 8.4 - 10.3 mg/dL [facility] ALKALINE PHOSPHATASE 91 39 - 117 U/L [facility] TOTAL BILIRUBIN <0.2 0.0 - 1.2 mg/dL [facility] AST 16 0 - 37 U/L [facility] ALT 14 0 - 40 U/L [facility] GLOBULIN 3.0 1 - 4.8 g/dL [facility] EGFR 40(L) >59 mL/min/1.7 3m2 [facility] Comment:Estimated glomerular filtration rate calculated using the CKD-EPI refit equation. ANION GAP 14 10 - 20 mmol/L [facility] Blood 11/05/2024 5:57 AM EDT 11/05/2024 6:34 AM EDT us Anastacia Dietrich MD LAB BLOOD ORDERABLES Final Result [address] [address] * ENDOSCOPY, COLON (02/22/2023 1:37 PM EDT) Narrative Transcriptions Ioana Armijo MD - 02/22/2023 1:37 PM EDT [facility] Patient Name: Yousif Orellana Attending MD:: IOANA ARMIJO MD, Procedure Date: 02/22/2023 1:37 PM Date of : 1965 Age: 57 Admit Type: Inpatient Gender: Male Room: [place] [address] Referring MD: SHANIKA MONTEMAYOR NP Exam Type: [...] 1:37 PM Procedure Code(s): --- Professional --- 63138, Colonoscopy, flexible; diagnostic, including collection of specimen(s) by brushing or washing, when performed (separateprocedure) --- Technical --- 71420, Colonoscopy, flexible; diagnostic, including collection of specimen(s) by brushing or washing, when performed (separateprocedure) Diagnosis Code(s): --- Professional --- D50.9, Iron deficiency anemia, unspecified --- Technical --- D50.9, Iron deficiency anemia, unspecified CPT copyright 2021 [employer]. All rights reserved. The codes documented in this report are preliminary and upon surgical coder reviewmay be revised to meet current compliance requirements. Procedure Date: 02/22/2023 1:37:[address] [place] [address] Shanika Montemayor NP GI PROCEDURE ORDERABLES Final R esult from Last 3 Months or Most Recently Relevant to Health Maintenance [place] [id number] MEDICARE PART A & [place] [facility] [place] [id number] MEDICARE PART A & [place] B MEDICARE PART A & B [employer] Advance Directives For more information, please contact: [phone] (9AM - 5PM [facility], Saturday-Saturday) Documents on File Type Date Recorded Patient Roving Or Yarn Color Checker Expl anation Healthcare Proxy 07/22/2024 3:40 PM [...] Agent (Proxy form on file) Care Teams Letterpress Printing Machinist Relationship Specialty Start Date End Date Betsy Cj [address] [place] [phone] PCP - General Internal Medicine 08/08/24 Dennis Temple MBBS [email or web address] Primary Oncologist Hematology and Oncology 04/02/23 Gabriela Barnhart CNP [address] [place] [address] [email or web address] Nurse Practitioner Medical Oncology 01/16/24 Additional Source Comments The information contained in this document represents components of the legal health record. It is not the complete legal health record.[facility]
--- OUTSIDE RECORDS SUMMARY | 2025-04-19 07:30 | XMS_ITS | Encounter Summary ---
Author Organization [facility] Address [address] [place] [address] Phone Care Team Providers Care Header Boss Name Role Phone Marlene Harden CHEMICAL PROCESSING TECHNICIAN Primary Care Provider [phone] Yue Rodrigez RN Unavailable Jennifer Dash DENTAL SCHEDULER Unavailable felisa Yvonne Montana [email or web address] [email or web address] Dennis Temple MBBS Unavailable [phone] Gabriela Barnhart REGULATORY INTERNSHIP Unavailable Cj Meyer DO Primary Care Provider Encounter Details Date Type Department Care Team (Late st Contact Info) Description 02/20/2022 Procedure Pass [facility] [place] [address] [place] [address] Social History Tobacco Use Types [...] 11:20 AM EDT Elizabeth Le RN * [place] Suicide Severity Rating Scale (Screener/Recent Self-Report) Question [...] AM EST Appointment [facility] [address] [place] [address] Conner Sneed MD [address] [place] [phone] [email or web address] 05/14/2025 1:00 PM EST Office Visit [facility] [address] [place] [address] [facility] [place] [address] Rehan Landaverde MD [address] [place] [phone] 09/13/2025 9:30 AM EDT Office Visit [facility] Pulmonary, Allergy and Critical Care Medicine [address] [place] [address] Conner Sneed MD [address] [place] [phone] [email or web address] Scheduled Procedures Name Priority Associated Diagnoses Date/Ti me PA MONITOR INSERTION IN CAR SEAT MAKER Systolic congestive heart failure, unspecified HF [...] documented as of this encounter Care Teams Header Boss Relationship Specialty Start Date End Date Marlene Harden CHEMICAL PROCESSING TECHNICIAN [address] [place] [address] PCP - General Family Medicine 01/10/22 08/07/24 Cj Meyer DO [address] [place] [address] PCP - General Internal Medicine 08/08/24 Yue Rodrigez, VENKATA [address] [place] [address] [email or web address] PHCM Accreditation Manager 02/21/22 06/09/23 Jennifer Dash LCSW [address] [place] [address] [email or web address] PHCM Machine Printer Hose 02/01/23 02/11/23 Yvonne Montana [address] [place] [address] [email or web address] PHCM Community Health Worker 02/25/23 06/09/23 Dennis Temple MBBS [address] [place] [address] [email or web address] Primary Oncologist Hematology and Oncology 04/02/23 Gabriela Barnhart CNP [address] [place] [address] [email or web address] Nurse Practitioner Medical Oncology 01/16/24 documented as of this encounter Additional Source Comments The information contained in this document represents components of the legal health record. It is not the complete legal health record.[facility]
--- OUTSIDE RECORDS SUMMARY | 2025-04-19 07:30 | XMS_ITS | Data Portability ---
Author Organization [facility], Main Office Address [address] [facility] [address] [place] [address] Care Team Providers Care Wagon Driller Name Role Phone DENISE GONZALEZ Primary Care Provider [phone] MARELY DE LEON 1ST FLOOR OTHER Assessment [...] Time Nontraumati c intraparenc hymal cerebral hemorrhage [id number] 03 Active 2024 Esa Rodrigues MD [address] [facility], [address], [place], [address], [facility] 5 11:08:30 Chronic obstructive pulmonary disease 34854967 Active 2024 Esa Rodrigues MD [address] [facility], [address], [place], [address], [facility] 5 11:08:49 Dysphagia 10247130 Active 2024 Esa Rodrigues MD [address], [address], [place], [address], [facility] 5 11:09:20 Atrial fibrillatio n 81883213 Active 2024 Esa Rodrigues MD [address], [address], [place], [address], [facility] 5 11:11:53 Coronary arterioscle rosis 72781833 Active 2024 Esa Rodrigues MD [address], [address], [place], [address], [facility] 5 11:11:58 Alcohol dependence 72903721 Active 2024 Esa Rodrigues MD [address], [address], [place], [address], [facility] 5 11:12:38 Tobacco user 182507677 Active 2024 Esa Rodrigues MD [address], [address], [place], [address], [facility] 5 11:12:43 Essential hypertensio n 57599874 Active 2024 Esa Rodrigues MD [address], [address], [place], [address], [facility] 5 11:12:48 Mixed hyperlipide micaela 011940217 Active 2024 Esa Rodrigues MD [address], [address], [place], [address], [facility] 5 11:12:56 Congestive heart failure 19851870 Active 2024 Esa Rodrigues MD [address], [address], [place], [address], [facility] 5 11:13:02 Chronic kidney disease stage 2 936311182 Active 2024 Letty Mehta MD [address], [address], [place], [address], [facility] 5 15:24:10 Pain of knee region 7513838104 Active 2024 Letty Mehta MD [address] [place] [address], [address], [place], [address], [facility] 5 15:30:14 Problem Notes None recorded. Medical Equipment None Reported. Allergies Allergen ID Allergen Name Allergen Category Reaction Reaction Severity Criticality Documentation Date Start Date Code Code System Note Provider Name and Address Organization Details Recorded Time 24693 Product containin g penicilli n (product) medicatio n Not available Not available Not available 08/14/2024 53107 8001 SNOMED Esa Rodrigues MD [address] [place] [address], [address], [place], [address], [facility] 5 11:22:28 88373 shellfish derived food,medi cation Not available Not available Not available 08/14/2024 Esa Rodrigues MD [address] [place] [address], [address], [place], [address], [facility] 5 11:22:49 82817 prednison e medicatio n Not available Not available Not available 01/21/20252019 8640 RxNorm Letty Mehta MD [address] [place] [address], [address], [place], [address], [facility] 5 16:10:02 67894 scallop allergeni c extract food Not available Not available Not available 01/21/20252013 21939 6 RxNorm Other react ion(s ): short ness of shemar Mehta MD [address] [place] [address], [address], [place], [address], [facility] 5 16:10:04 71724 penicilla mine medicatio n Not available Not available Not available 01/21/20252013 7975 RxNorm Other react ion(s ): short ness of shemar Mehta MD [address] [place] [address], [address], [place], [address], [facility] 5 16:19:26 Vitals Date Recorded Body weight Heart rate Respiratory rate Body temperature Oxygen saturation Oxygen saturation in Arterial blood by Pulse oximetry Inhaled oxygen flow rate Systolic And Diastolic Provider Name and Address Organization Details Last Updated DateTime 5 91579.1 9 g 70 /min 18 /min 98.1 [degF] 96 % 96 % 2 L/min 143/74 mm[Hg] KIAN RODRIGUEZ CNP [address] [facility], [address], [place], [address], [facility] 5 09:55:08 Date Recorded Body weight Heart rate Respiratory rate Body temperature Oxygen saturation Oxygen saturation in Arterial blood by Pulse oximetry Inhaled oxygen flow rate Systolic And Diastolic Provider Name and Address Organization Details Last Updated DateTime 5 04994.7 g 58 /min 18 /min 98.1 [degF] 94 % 94 % 2 L/min 110/63 mm[Hg] KIAN RODRIGUEZ CNP [address], [place], [address], [facility] 5 09:37:59 Date Recorded Systolic And Diastolic Provider Name and Address Organization Details Last Updated DateTime 11/09/2024 135/64 mm[Hg] [facility] [address], [place], [address], [facility] 11/09/2024 11:23:22 Date Recorded Heart rate Systolic And Diastolic Provider Name and Address Organization Details Last Updated DateTime 11/11/2024 87 /min 116/67 mm[Hg] KIAN RODRIGUEZ CNP [address], [place], [address], [facility] 11/11/2024 10:11:22 Date Recorded Body height Body mass index (BMI) Body weight Heart rate Respiratory rate Body temperature Oxygen saturation Oxygen saturation in Arterial blood by Pulse oximetry Inhaled oxygen flow rate Systolic And Diastolic Provider Name and Address Organization Details Last Updated DateTime 5 170.18 cm 33.4 kg/m2 13701.1 7 g 55 /min 18 /min 97.8 [degF] 98 % 98 % 2 L/min 139/77 mm[Hg] Letty Mehta MD [address] [facility], [address], [place], [address], [facility] 16:25:48 Social History Question Answer Notes LastModified by Organizat ion Details LastModified Time Tobacco Smoking Status Former Smoker Quit when admitted to rehab 08/2024 Letty Mehta MD [address] [facility], [address], [place], [place], [address], [facility] 01/21/2025 18:12:08 Do You Have An [...] 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 Not Invoked Information not available 01/21/2025 [...] Organization Details Recorded Time Tdap 09/28/2016 completed Apttie Robbi [facility] 08/14/2024 16:05:11 SARS-COV-2 (COVID-19) vaccine, UNSPECIFIED 11/29/2020 completed Pattie Robbi [facility] 08/14/2024 16:05:29 Past Encounters Encounter ID Performer Location Encounter Start Date Encounter Closed Date Diagnosis/Indication Diagnosis SNOMED-CT Code Diagnosis ICD10 Code Diagnosis IMO Codes Diagnosis Note [id number] [place] [address] [address] 08/14/2024 10:59:15 08/17/2024 16:18:46 Nontraumatic intraparenchymal cerebral hemorrhage [id number] 48513 I61.8 see HPIrecentl y discharged from hospital [...] on 08/26 Chronic ob structive pulmonary disease 89989265 J44.1 restart qid duonebsmon itor respirator y statuscomp lete prednisone coursecoor dinate with respirator y at facilitypu lmonary eval prn Respirator y syncytial virus infection 61429285 B97.4 see above Asthenia 90229120 R53.1 PT OT eval and treatmonit or fall risk and need for increased support in community Dysphagia 37744028 I69.2 91 monitor aspiration risk and need to further adjust diet Atrial fibrillation 3554 5432 I48.0 Xarelto on hold due to aboveamiod arone 200 mg qdasa 81 mg qd through 08/26metopr olol 50 mg qdmonitor for rate control Coronary arteriosclerosis 78348961 I25.10 lipitor 40 mg qdmetoprol ol 50 mg qdmonitor for sx Alcohol dependence 76655 003 F10.20 added to PMHcontinu e thiaminemo nitor need for increased support in community Tobacco user 207876325 Z 72.0 added to PM[place] ge quittingco ntinue nicotine supplement Essential hypertension 23760781 I10 metoprolol 50 mg qdlasix 40 mg qdlisinopr il 10 mg qdentresto 24-26 mg bidmonitor bp and need titrate Mixed hyperlipidemia 267 140541 E78.2 lipitor 40 mg qdcontinue d Congestive heart failure 99932265 I50.22 EF=35%lasi x 40 mg qdentresto 24-26 mg bidmonitor respirator y and fluid status [id number] URIEL DELAROSA [address] [place] [address] 08/19/2024 13:34:52 08/20/2024 13:07:58 Nontraumatic intraparenchymal cerebral hemorrhage 3258173825 87949 I61.8 continue ASA 08/05 through 08/26 with f/u neuro in place.Cont inued on dysphagia diet and continued on keppra 750 mg bid with plan to reassess ability to restart xarelto on 08/26neuros intact Chronic ob structive pulmonary disease 17679293 J44.1 continue duonebs QIDmonitor respirator y statuspulm nurse to followlung sounds still coarse Respirator y syncytial virus infection 34967364 B97.4 improving slowly [id number] URIEL DELAROSA [address] [place] [address] 08/24/2024 09:32:25 08/25/2024 12:01:07 Nontraumatic intraparenchymal cerebral hemorrhage 9942604045 85371 I61.8 continue ASA 08/05 through 08/26 with f/u neuro in place.Cont inued on dysphagia diet and continued on keppra 750 mg bid with plan to reassess ability to restart xarelto on 08/26 Chronic ob structive pulmonary disease 35691668 J44.1 continue duonebs QID Respirator y syncytial virus infection 20203534 B97.4 resolved Asthenia 99144359 R53.1 baselineVN A Outpt Atrial fibrillation 4943 6004 I48.0 Xarelto on hold due to aboveamiod arone 200 mg qdasa 81 mg qd through 08/26 then restart xareltomet oprolol 50 mg qd Coronary arteriosclerosis 26648023 I25.10 lipitor 40 mg qdmetoprol ol 50 mg qd Alcohol dependence 15787 003 F10.20 continue thiamine Tobacco user 213516306 Z 72.0 added to [facility] ge quittingco ntinue nicotine supplement Essential hypertension 01084762 I10 metoprolol 50 mg qdlasix 40 mg qdlisinopr il 10 mg qdentresto 24-26 mg bid Mixed hyperlipidemia 267 203093 E78.2 lipitor 40 mg qd Congestive heart failure 49033924 I50.22 EF=35%lasi x 40 mg qdentresto 24-26 mg bid [id number] [facility] [address] [place] [address] rd [place] [address] 09/02/2024 09:13:06 09/07/2024 15:57:48 Nontraumatic intraparenchymal cerebral hemorrhage [id number] 00461 I61.8 see HPIrecentl y discharged from hospital for right Intraparen chymal hemorrhage with mild left hemiparesi s and dysarthria on dischargem aintained onxarelto 20 mg qdkeppra 1500 mg bidcoordin ate with neuro as needed Chronic ob structive pulmonary disease 58908369 J44.1 monitor neb utilizatio n and respirator y statusnow onpredniso ne 60 mg qdwill decrease by 10 mg q 5 days till at 10 mg then reassesspu lmonary eval prn Asthenia 74505860 R53.1 PT OT eval and treatmonit or fall risk and need for increased support in community Dysphagia 95948310 I69.2 91 monitor aspiration risk and need to further adjust diet Atrial fibrillation 4943 6004 I48.0 Xarelto 20 mg qdamiodaro ne 200 mg qdmetoprol ol 50 mg qdmonitor for rate control Coronary arteriosclerosis 75407135 I25.10 lipitor 40 mg qdmetoprol ol 50 mg qdmonitor for sx Alcohol dependence 71214 003 F10.20 added to PMHcontinu e thiaminemo nitor need for increased support in community Tobacco user 542826594 Z 72.0 added to [facility] ge quittingco ntinue nicotine supplement Essential hypertension 78701217 I10 metoprolol 50 mg qdnorvasc 5 mg qdlasix 40 mg qdentresto 24-26 mg bidmonitor bp and need titrate Mixed hyperlipidemia 267 214880 E78.2 lipitor 40 mg qdcontinue d Congestive heart failure 31968826 I50.22 EF=35%lasi x 40 mg qdentresto 24-26 mg bidmonitor respirator y and fluid status [id number] [place] SQUIRES [address] [address] 10/04/2024 10:50:42 10/27/2024 08:10:53 Chronic obstructive pulmonary disease 31484900 J44.1 stable O2 dependentm onitor respirator y statusCont prednisone 5mg qdpulmonar y eval prn Nontraumat ic intraparenchymal cerebral hemorrhage 9182988384 60135 I61.8 stablerece ntly discharged from hospital for right Intraparen chymal hemorrhage with mild left hemiparesi s and dysarthria on dischargem aintained onxarelto 20 mg qdkeppra 1500 mg bidcoordin ate with neuro as needed Atrial fibrillation 4943 6004 I48.0 HR controlled Xarelto 20 mg qdamiodaro ne 200 mg qdmetoprol ol 50 mg qdmonitor for rate control Coronary arteriosclerosis 54879922 I25.10 stablelipi tor 40 mg qdmetoprol ol 50 mg qdmonitor for sx Essential hypertension 55674717 I10 stablemeto prolol 50 mg qdnorvasc 5 mg qdlasix 40 mg qdentresto 24-26 mg bidmonitor bp and need titrate Congestive heart failure 53308157 I50.22 stable euvolemicE F=35%lasix 40 mg qdentresto 24-26 mg bidmonitor respirator y and fluid status [id number] KIAN RODRIGUEZ CNP [address] [address] 10/07/2024 08:46:35 10/09/2024 08:38:44 Chronic obstructive pulmonary disease 52016054 J44.1 now on prednisone 10 mg daily. Will taper down to 5 mg daily and will reassess.C ontinue neb QID.Contin ue monitor respirator y status.pul monary eval prn.Will check lab, CBC, CMP tomorrow. Nontraumat ic intraparenchymal cerebral hemorrhage 1343984689 61761 I61.8 see HPIrecentl y discharged from hospital for right Intraparen chymal hemorrhage with mild left hemiparesi s and dysarthria on discharge. Stable now.mainta ined onxarelto 20 mg qdkeppra 750 mg bidcoordin ate with neuro as needed Asthenia 06237786 R53.1 Improving. Continue PT OT, PRN eval and treatmonit or fall risk and need for increased support in community Dysphagia 01546843 I69.2 91 Resolved.I s currently is on regular diet, no coughing or chocking reported. Atrial fibrillation 4943 6004 I48.0 HR stable.Xar elto 20 mg qdamiodaro ne 200 mg qdmetoprol ol 50 mg qdmonitor for rate control Coronary arteriosclerosis 78950566 I25.10 lipitor 40 mg qdmetoprol ol 50 mg qdmonitor for sx Alcohol dependence 55746 003 F10.20 added to PMHcontinu e thiaminemo nitor need for increased support in community Tobacco user 791047745 Z 72.0 added to [facility] ge quittingco ntinue nicotine supplement Essential hypertension 08705843 I10 metoprolol 50 mg qdnorvasc 5 mg qdlasix 40 mg qdentresto 24-26 mg bidmonitor bp and need titrate Mixed hyperlipidemia 267 357220 E78.2 lipitor 40 mg qdcontinue d Congestive heart failure 73858966 I50.22 EF=35%Pt is euvolemic, but gained 14 lb over a month.? volume overload or due to high dose of prednisone .continuel asix 40 mg qdentresto 24-26 mg bidmonitor respirator y and fluid statuswill monitor wt weekly.Sabas thibodeaux check labs tomorrow. [id number] KIAN ROD[facility]IGUEZ CNP [facility] [address] [place] [address] [place] [address] 10/14/2024 09:50:34 10/21/2024 11:35:43 Chronic obstructive pulmonary disease 84384180 J44.1 now on prednisone 5 mg daily, Will taper down to 2.5 mg daily and will reassess.w bc trending down.Keiry nue neb.Contin ue monitor respirator y status.pul monary eval prn.Will check lab weekly. Nontraumat ic intraparenchymal cerebral hemorrhage 8996790266 75084 I61.8 see HPIrecentl y discharged from hospital for right Intraparen chymal hemorrhage with mild left hemiparesi s and dysarthria on discharge. Stable now.mainta ined onxarelto 20 mg qdkeppra 750 mg bidcoordin ate with neuro as needed Asthenia 11236400 R53.1 Improving. Continue PT OT, PRN eval and treatmonit or fall risk and need for increased support in community Dysphagia 03737124 I69.2 91 Resolved.I s currently is on regular diet, no coughing or chocking reported. Atrial fibrillation 4943 6004 I48.0 HR stable.Xar elto 20 mg qdamiodaro ne 200 mg qdmetoprol ol 50 mg qdmonitor for rate control Coronary arteriosclerosis 73440535 I25.10 lipitor 40 mg qdmetoprol ol 50 mg qdmonitor for sx Alcohol dependence 16863 003 F10.20 added to PMHcontinu e thiaminemo nitor need for increased support in community Tobacco user 865575785 Z 72.0 added to PM[facility] ge quittingco ntinue nicotine supplement Essential hypertension 86761514 I10 BP stable.met oprolol 50 mg qdnorvasc 5 mg qdlasix 40 mg qdentresto 24-26 mg bidmonitor bp and need titrate Mixed hyperlipidemia 267 232626 E78.2 lipitor 40 mg qdcontinue d Congestive heart failure 76262161 I50.22 EF=35%Pt is euvolemic, but gained 14 lb over a month.? volume overload or due to high dose of prednisone .continuel asix 40 mg qdentresto 24-26 mg bidmonitor respirator y and fluid statuswill monitor wt weekly.Sabas l check labs tomorrow. [id number] KIAN RODRIGUEZ, MEDARDO YAP HALEY [address] [place] [address] 10/21/2024 09:10:50 10/27/2024 08:23:45 Chronic obstructive pulmonary disease 39018747 J44.1 Stable, no exacerbati on noted.Pred nisone tapered down to 2.5 mg now, and will tapered to 1 mg daily for 5 days and then stop.wbc trending down.will change neb treatment as PRN.Contin ue monitor respirator y status.pul monary eval prn.Will check lab weekly. Nontraumat ic intraparenchymal cerebral hemorrhage 3519952841 31621 I61.8 see HPIrecentl y discharged from hospital for right Intraparen chymal hemorrhage with mild left hemiparesi s and dysarthria on discharge. Stable now.mainta ined onxarelto 20 mg qdkeppra 750 mg bidcoordin ate with neuro as needed Asthenia 49569791 R53.1 Improving. Continue PT OT, PRN eval and treatmonit or fall risk and need for increased support in community Dysphagia 67319232 I69.2 91 Resolved.I s currently is on regular diet, no coughing or chocking reported. Atrial fibrillation 4943 6004 I48.0 HR stable.Xar elto 20 mg qdamiodaro ne 200 mg qdmetoprol ol 50 mg qdmonitor for rate control Coronary arteriosclerosis 11506758 I25.10 lipitor 40 mg qdmetoprol ol 50 mg qdmonitor for sx Alcohol dependence 78061 003 F10.20 added to PMHcontinu e thiaminemo nitor need for increased support in community Tobacco user 859996793 Z 72.0 added to PMH[place] ge quittingco ntinue nicotine supplement Essential hypertension 22703177 I10 BP stable.met oprolol 50 mg qdnorvasc 5 mg qdlasix 40 mg qdentresto 24-26 mg bidmonitor bp and need titrate Mixed hyperlipidemia 267 517987 E78.2 lipitor 40 mg qdcontinue d Congestive heart failure 83861562 I50.22 EF=35%Pt is euvolemic, but gained 14 lb over a month.? volume overload or due to high dose of prednisone .continuel asix 40 mg qdentresto 24-26 mg bidmonitor respirator y and fluid statuswill monitor wt weekly.Sabas l check labs tomorrow. [id number] KIAN RODRIGUEZ, MEDARDO [address] [place] [address] 10/28/2024 09:19:53 11/03/2024 11:20:44 Chronic obstructive pulmonary disease 23883537 J44.1 Stable, no exacerbati on noted.Pred nisone tapered down and completed yesterday. wbc trending down.He has been using neb treatment as PRN.Contin ue monitor respirator y status.ref er to pulmonary for evalWill check lab weekly. Nontraumat ic intraparenchymal cerebral hemorrhage 6932127426 53329 I61.8 see HPIrecentl y discharged from hospital for right Intraparen chymal hemorrhage with mild left hemiparesi s and dysarthria on discharge. Stable now.mainta ined onxarelto 20 mg qdkeppra 750 mg bidcoordin ate with neuro as needed Asthenia 67884350 R53.1 Improving. Continue PT OT, PRN eval and treatmonit or fall risk and need for increased support in community Atrial fibrillation 4943 6004 I48.0 HR stable.Xar elto 20 mg qdamiodaro ne 200 mg qdmetoprol ol 50 mg qdmonitor for rate control Coronary arteriosclerosis 72216325 I25.10 lipitor 40 mg qdmetoprol ol 50 mg qdmonitor for sx Alcohol dependence 23745 003 F10.20 added to PMHcontinu e thiaminemo nitor need for increased support in community Tobacco user 428481920 Z 72.0 added to PMHencoura ge quittingco ntinue nicotine supplement Essential hypertension 72485416 I10 BP stable.met oprolol 50 mg qdnorvasc 5 mg qdlasix 40 mg qdentresto 24-26 mg bidmonitor bp and need titrate Mixed hyperlipidemia 267 267536 E78.2 lipitor 40 mg qdcontinue d Congestive heart failure 39213719 I50.22 EF=35%Pt is euvolemic, but gained 14 lb over a month.? volume overload or due to high dose of prednisone .continuel asix 40 mg qdentresto 24-26 mg bidmonitor respirator y and fluid statuswill monitor wt weekly.Sabas carlos eduardo check labs tomorrow. [id number] KIAN RODRIGUEZ, MEDARDO DE LEON [address] [facility] [place] [address] 11/04/2024 09:35:19 11/06/2024 14:11:01 Chronic obstructive pulmonary disease 97756843 J44.1 Stable, no exacerbati on noted.Pred nisone tapered down and completed last week.wbc trending down.He has been using neb treatment as PRN.Contin ue monitor respirator y status.pul monary evaluation scheduled. Will check lab weekly. Nontraumat ic intraparenchymal cerebral hemorrhage 4143994082 12168 I61.8 see HPIrecentl y discharged from hospital for right Intraparen chymal hemorrhage with mild left hemiparesi s and dysarthria on discharge. Stable now.mainta ined onxarelto 20 mg qdkeppra 750 mg bidcoordin ate with neuro as needed Asthenia 94175335 R53.1 Improving. Continue PT OT, PRN eval and treatmonit or fall risk and need for increased support in community Atrial fibrillation 4943 6004 I48.0 HR stable.Xar elto 20 mg qdamiodaro ne 200 mg qdmetoprol ol 50 mg qdmonitor for rate control Coronary arteriosclerosis 03527522 I25.10 lipitor 40 mg qdmetoprol ol 50 mg qdmonitor for sx Alcohol dependence 78329 003 F10.20 added to PMHcontinu e thiaminemo nitor need for increased support in community Tobacco user 611408169 Z 72.0 added to PMHenc[place] ge quittingco ntinue nicotine supplement Essential hypertension 15144655 I10 BP stable.met oprolol 50 mg qdnorvasc 5 mg qdlasix 40 mg qdentresto 24-26 mg bidmonitor bp and need titrate Mixed hyperlipidemia 267 313428 E78.2 lipitor 40 mg qdcontinue d Congestive heart failure 03814674 I50.22 EF=35%Pt is euvolemic, but gained 14 lb over a month.? volume overload or due to high dose of prednisone .continuel asix 40 mg qdentresto 24-26 mg bidmonitor respirator y and fluid statuswill monitor wt weekly.car diology f/u scheduled today. [id number] MD MARELY Vides HALEY [address] [place] [address] rd [place] [address] 11/09/2024 11:22:44 11/11/2024 14:10:04 Acute kidney injury 98772933 N17.8 59437 see HPI question due to diuresisno w metolazone has been discontinu eddischarg ed on torsemide 20 mg with frequency to be confirmed with hospital - monitor need to increase to BIDwill change to q day and monitor weightsdis cussed with nursing Normocytic anemia 084955 002 D64.9 47152 acute on chronic anemianow on iron 325 mg m/w/fto f/u with GI out patient with no bleeding source foundhx need for iron infusionmo nitor cbcheme eval prnof note remains on xarelto Congestive heart failure 57759953 I50.22 now ontorsemid e 20 mg qdentresto 24-26 mg bidmonitor respirator y and fluid statusupda te cards with concerns Chronic ob structive pulmonary disease 89929421 J44.1 recent need for prednisone utilizatio nmonitor respirator y statuspulm onary eval prn Nontraumat ic intraparenchymal cerebral hemorrhage 7922010552 50102 I61.8 prior right Intraparen chymal hemorrhage with mild left hemiparesi s and dysarthria on dischargem aintained onxarelto 20 mg qdkeppra 750 mg bidcoordin ate with neuro as needed Asthenia 89778903 R53.1 PT OT eval and treatmonit or fall risk and need for increased support in community Dysphagia 77709293 I69.2 91 monitor aspiration risk and need to further adjust diet Atrial fibrillation 4943 6004 I48.0 Xarelto 20 mg qdamiodaro ne 200 mg qdmetoprol ol 12.5 mg qdmonitor for rate control Coronary arteriosclerosis 67495405 I25.10 lipitor 40 mg qdmetoprol ol 12.5 mg qdmonitor for sx Essential hypertension 03446589 I10 see HPI with changes now onmetoprol ol 12.5 mg qdtorsemid e 20 mg qd - pending confirmati on from [facility] tresto 24-26 mg bidmonitor bp and need titrate Mixed hyperlipidemia 267 936426 E78.2 lipitor 40 mg qdcontinue d [id number] MD [place] [address] [place] [address] rd [place] [address] 01/21/2025 16:09:29 01/26/2025 10:38:08 Congestive heart failure 56500838 I50.22 Resp sxs and edema at baseline per pt.Continu e torsemide 20 mg qd, metoprolol 12.5 mg qd, and entresto 24/26 mg BID.Monito r resp. status, fluid status, wts and labs.F/U with cardio as planned and prn. Chronic ob structive pulmonary disease 63655860 J44.1 With some exp wheezing today, pt says baseline.C ontinue Trelegy 200/62.5/2 5 mcg qd, roflumilas t 500 mcg qd, albuterol MDI 2 puffs q 6 hrs prn, and duonebs q 6 hrs prn.Monito r resp status.F/U with pulmonary in 03/2025 as planned. Nontraumat ic intraparenchymal cerebral hemorrhage [id number] 22214 I61.8 In hx.On seizure prophylaxi s with keppra 750 mg BID.Monito r for new neuro changes and seizure activity. Asthenia [id number] R53.1 Is back to baseline.R estart PT/OT prn Atrial fibrillation 4943 6004 I48.0 Rate in good control on meds as above and amiodarone 200 mg qd.Continu e Xarelto 20 mg qd for AC.Monitor HR and bleeding risk.Will be able to d/c Xarelto after Watchman procedure. Coronary arteriosclerosis [id number] I25.10 No recent chest pain.Keiry nue meds as above and atorvastat in 40 mg qdNo plans for revascular ization.Mo nitor for sxs.F/U with cardio. Essential hypertension [id number] I10 Adequate control on meds as above.Lexie tor BP and labs. Chronic ki dney disease stage 2 [id number] N18.2 [id number] Renal function stable.Bal ancing act between CHF and CKD.Titrat e diuretics as needed.Mon itor labs. Pain of knee region 1003 [id number] M25.561 M25.562 G89.29 [id number] Pt says that knee pain interferes in functionin g more than resp sxs.He has had steroid injections with in house physiatris t with very short term relief. Physiatris t has suggested gel shots as outpt.Cont inue APAP 650 mg q 6 hrs prn and Percocet 325/5 mg q 6 hrs prn.Consul t PSSP for ? Effluxa shots.Forg ot to discuss lidocaine patches. Anemia [id number] D64.89 [id number] Stable.No cause found.Cont inue FeSO4 324 mg [...] Member ID Guarantor Name 01/21/2025 2 [place] [facility] Dwaine Orellana [id number] Dwaine Orellana 01/21/2025 1 [place]IC[place] B[place]: [email or web address] Dwaine Orellana [id number] Dwaine Orellana Notes Date Note Type Note [...] htn, hld, chf EF=35%, copd. KIAN RODRIGUEZ, HEALTH SERVICE COORDINATOR [address] [facility], [address], [place], [address], [facility] 10/21/2024 10:05:50 5 text/html ROS as noted [...] htn, hld, chf EF=35%, copd. KIAN RODRIGUEZ, HEALTH SERVICE COORDINATOR [address] [facility], [address], [place], [address], [facility] 10/28/2024 10:41:17 5 text/html ROS as noted [...] chf EF=35%, copd. KIAN RODRIGUEZ CNP [address] [facility], [address], [place], [address], [facility] 11/04/2024 10:05:56 5 text/html Patient is [...] maintained on xarelto Esa Rodrigues MD [address] [facility], [address], [place], [address], [facility] 11/09/2024 11:52:00 5 text/html This is a complicated 59 yo man with COPD on home O2, who I am seeing today for a delayed 90 day routine visit and in anticipation of transition to new medical team.He has been here since 09/01/24 with one rehospitalization from 11/04-11/07. [facility] with hx of seizure activity and resp distress requiring intubation. It is unclear whether this was a true seizure vs encephalopathy secondary to hypercarbic respiratory failure .He wasd/c homewith BiPAP ordered. [facility] with left sided weakness and being found to have 3.4 x 1.8 cm acute intraparenchymal hemorrhage involving the right lentiform nucleus with mild adjacent mass effect At [facility] MRI brain with and without contrast did [...] He wasd/c home with [facility] 08/04 to [facility].D/C home for outpt f/u. [facility] on 08/08 with worsening left sided weakness. Found to have Right lentiform nucleus evolving parenchymal hematoma with slightly decreased hyperdense components, and slightly increased surrounding edema. Leftward midline shift by 3 to 4 mm, slightly worse. Course complicated by +RSV.D/C to [facility], where he did well and wasd/c home on 08/25. [facility]. He was txed with [...] however, shared decision to send patient to [facility] ED for evaluation/treatment to monitor closely due to above-stated signs/symptoms and hypotension. Transferred to [facility] ED. Per d/c summary:Hypotension-Prese nted hypotensive from [...] anemia all contributing to this symptom.-labs from care home 11 down to 7s, [...] one point he was following with the [facility] for iron infusions. He was given [...] 70% general good cardiac function-gaining wt at care home and seemed to [...] transitioned to private pay.He is looking into [facility] as rest homes do not accept [...] and hx of AUD. Letty Mehta MD [address] [place] [address], [address], [place], [address], [facility] - [facility] 01/23/2025 15:32:06
--- OUTSIDE RECORDS SUMMARY | 2025-04-19 07:30 | XMS_ITS | Encounter Summary ---
Author Organization [facility] Address [address] [place] [address] Phone Care Team Providers Care Taper Machine Name Role Phone Temple, Ahmastu Mccann MBBS Unavailable Pack, Gabriela LOCATION MANAGER Unavailable Cj Meyer DO Primary Care Provider [phone] Encounter Details Date Type Department Care Team (Late st Contact Info) Description 11/07/2024 Procedure Pass [facility], Ct Scan - [address] [address] Social History Tobacco Use Types Packs/Day Years [...] AM EST Appointment [facility] 30 [place] [address] Conner Sneed MD [address] [address] [email or web address] 05/14/2025 1:00 PM EST Office Visit [facility] [address] [facility] [address], [address] [place] [address] Rehan Landaverde MD 50 [place] [address] 09/13/2025 9:30 AM EDT Office Visit [facility] 10 [facility] [place] [address] Conner Sneed MD 10 [facility] 2nd [place] [address] [email or web address] Scheduled Procedures Name Priority Associated Diagnoses Date/Ti me PA MONITOR INSERTION IN COUNCILMAN Systolic congestive heart failure, unspecified HF chronicity documented as of this encounter Visit Diagnoses Not on filedocumented in this encounter Additional Health Concerns Assessment Noted Time PHQ-2 Depression Total Score: 2 03/28/20 22 11:32 AM EDT documented as of this encounter Care Teams Taper Machine Relationship Specialty Start Date End Date Cj Meyer DO [address] [place] [address] PCP - General Internal Medicine 08/08/24 Dennis Temple MBBS [email or web address] Primary Oncologist Hematology and Oncology 04/02/23 Gabriela Barnhart CNP 30 [place] [address] Nurse Practitioner Medical Oncology 01/16/24 documented as of this encounter Additional Source Comments The information contained in this document represents components of the legal health record. It is not the complete legal health record.[facility]
--- OUTSIDE RECORDS SUMMARY | 2025-04-19 07:30 | XMS_ITS | Encounter Summary ---
Author Organization [facility] Address [address] [place] [address] Phone Care Team Providers Care Centerless Grinder Operator Name Role Phone Temple, Ahmastu Mccann MBBS Unavailable Pack, Gabriela PET HOUSE SITTER Unavailable Cj Meyer DO Primary Care Provider [phone] Encounter Details Date Type Department Care Team (Late st Contact Info) Description 12/09/2024 Procedure Pass [facility], Ct Scan - [address] [address] Social History Tobacco Use Types Packs/Day Years [...] AM EST Appointment [facility] 30 [place] [address] Conner Sneed MD [address] [address] [email or web address] 05/14/2025 1:00 PM EST Office Visit [facility] [address] [facility] [address], [address] [place] [address] Rehan Landaverde MD 50 [place] [address] 09/13/2025 9:30 AM EDT Office Visit [facility] 10 [facility] [place] [address] Conner Sneed MD 10 [facility] 2nd [place] [address] [email or web address] Scheduled Procedures Name Priority Associated Diagnoses Date/Ti me PA MONITOR INSERTION IN COMMERCIAL LINES ACCOUNT EXECUTIVE Systolic congestive heart failure, unspecified HF chronicity documented as of this encounter Visit Diagnoses Not on filedocumented in this encounter Additional Health Concerns Assessment Noted Time PHQ-2 Depression Total Score: 2 03/28/20 22 11:32 AM EDT documented as of this encounter Care Teams Centerless Grinder Operator Relationship Specialty Start Date End Date Cj Meyer DO [address] [place] [address] PCP - General Internal Medicine 08/08/24 Dennis Temple MBBS [email or web address] Primary Oncologist Hematology and Oncology 04/02/23 Gabriela Barnhart CNP 30 [place] [address] Nurse Practitioner Medical Oncology 01/16/24 documented as of this encounter Additional Source Comments The information contained in this document represents components of the legal health record. It is not the complete legal health record.[facility]
--- OUTSIDE RECORDS SUMMARY | 2025-04-19 07:31 | XMS_ITS | Encounter Summary ---
Author Organization [facility] Address [address] [place] [address] Phone Care Team Providers Care Silk Trimmer Name Role Phone Dereck Marlene Delvalle GOSPEL WORKER Primary Care Provider [phone] Dennis Temple MBBS Unavailable Gabriela Barnhart COMPUTERIZED MACHINE FABRIC CUTTER Unavailable Cj Meyer DO Primary Care Provider Encounter Details Date Type Department Care Team (Late st Contact Info) Description 10/03/2023 Procedure Pass [facility], Ct Scan - [address] [address] Social History Tobacco Use Types Packs/Day Years [...] AM EST Appointment [facility] 30 [place] [address] Conner Sneed MD [address] [place] [address] [email or web address] 05/14/2025 1:00 PM EST Office Visit [facility] [address] [place] [address] 3rd Floor, [address] [place] [address] Rehan Landaverde MD [address] [place] [address] 09/13/2025 9:30 AM EDT Office Visit [facility] 10 [place] [address] Conner Sneed MD [address] [place] [address] [email or web address] Scheduled Procedures Name Priority Associated Diagnoses Date/Ti me PA MONITOR INSERTION IN ASSISTANT COOK Systolic congestive heart failure, unspecified HF chronicity [...] documented as of this encounter Care Teams Silk Trimmer Relationship Specialty Start Date End Date Marlene Harden NP [address] [place] [address] PCP - General Family Medicine 01/10/22 08/07/24 Cj Meyer DO 70 [place] [address] PCP - General Internal Medicine 08/08/24 Dennis Temple MBBS [address] [place] [address] [email or web address] Primary Oncologist Hematology and Oncology 04/02/23 Gabriela Barnhart CNP [address] [place] [address] [email or web address] Nurse Practitioner Medical Oncology 01/16/24 documented as of this encounter Additional Source Comments The information contained in this document represents components of the legal health record. It is not the complete legal health record.[facility]
--- OUTSIDE RECORDS SUMMARY | 2025-04-19 07:31 | XMS_ITS | Encounter Summary ---
Author Organization [facility] Address [address] [facility] [address] [place] [address] Phone Care Team Providers Care Towerman Name Role Phone Marlene Harden NP Primary Care Provider Yue Rodrigez RN Unavailable Jennifer Dash CHIEF WARDEN Unavailable felisa Yvonne Montana Unavailable Dennis Temple MBBS Unavailable [phone] Gabriela Barnhart MEDICAID SPECIALIST Unavailable Cj Meyer DO Primary Care Provider Encounter Details Date Type Department Care Team (Late st Contact Info) Description 06/21/2022 Procedure Pass [facility] Cardiovascular And Interventional Radiology 30 [place] [address] Social History Tobacco Use Types Packs/Day Years [...] EST Appointment [facility] [address] [place] [address] Conner Sneed MD [address] [address] [email or web address] 05/14/2025 1:00 PM EST Office Visit [facility] [address] [facility] 3rd Floor, [address] [place] [address] Rehan Landaverde MD [address] [place] [address] 09/13/2025 9:30 AM EDT Office Visit [facility] 10 [facility] [place] [address] Conner Sneed MD [address] [address] [email or web address] Scheduled Procedures Name Priority Associated Diagnoses Date/Ti me PA MONITOR INSERTION IN SPACE OPERATIONS Systolic congestive heart failure, unspecified HF chronicity [...] documented as of this encounter Care Teams Towerman Relationship Specialty Start Date End Date Marlene Harden NP 70 [place], [place] PCP - General Family Medicine 01/10/22 08/07/24 Cj Meyer DO 70 [place], [place] PCP - General Internal Medicine 08/08/24 Yue Rodrigez, VENKATA [address] [place] [address] PHC Leadlighter 02/21/22 06/09/23 Jennifer Dash LCSW [address] [place] [address] PHCM Drywall Installer 02/01/23 02/11/23 Yvonne Montana [address] [place] [address] PHC Community Health Worker 02/25/23 06/09/23 Dennis Temple MBBS [address] [place] [address] [email or web address] Primary Oncologist Hematology and Oncology 04/02/23 Gabriela Barnhart CNP [address] [place] [address] Nurse Practitioner Medical Oncology 01/16/24 documented as of this encounter Additional Source Comments The information contained in this document represents components of the legal health record. It is not the complete legal health record.[facility]
--- OUTSIDE RECORDS SUMMARY | 2025-04-19 07:31 | XMS_ITS | Encounter Summary ---
Author Organization [facility] Address [address] [facility] [address] [place] [address] Phone Care Team Providers Care Digital Production Manager Name Role Phone Marlene Harden NP Primary Care Provider [phone] Dennis Temple MBBS Unavailable Gabriela Barnhart PLEAT TAPER Unavailable Cj Meyer DO Primary Care Provider [phone] Reason for Referral * MRI/CAT Scan - Closed Specialty Diagnoses / Procedures Referred By Contflorentin t Referred To Contact Radiology Diagnoses Cigarette smoker Procedures CT Chest Lung Cancer Screening Initial Or Annual Marlene Harden NP Phone: tel: Referral ID Status Reason Start Date Expiration Date Visits Re quested Visits Authorized [id number] Closed 10/03/2023 10/02/2024 1 1 Encounter Details Date Type Department Care Team (Latest Contact Info) Description 10/03/2023 Transcribe Orders Virtual Department 30 [place] [address] Marlene Harden NP [address] [place], [place] [id number] Cigarette smoker (Primary Dx) Social History Tobacco [...] AM EST Appointment [facility] 30 [place] [address] Conner Sneed MD [address] [address] [email or web address] 05/14/2025 1:00 PM EST Office Visit [facility] [address] [place] [address] 3rd Floor, [address] [place] [address] Rehan Landaverde MD [address] [place] [address] [email or web address] 09/13/2025 9:30 AM EDT Office Visit [facility] Allergy [facility] Critical Care Medicine [address] [place] [address] [place] [address] Conner Sneed MD [address] [place] [address] 2nd [place] [address] [email or web address] Scheduled Procedures Name Priority Associated Diagnoses Date/Ti sc PA MONITOR INSERTION IN COMMISSIONER CONSERVATION OF RESOURCES Systolic congestive heart failure, unspecified HF chronicity [...] clinician's provided indication for this examination in [facility]: Lung Cancer Screening - CURRENT smoker [...] clinician's provided indication for this examination in [facility]:Lung Cancer Screening - CURRENT smoker (20+ [...] categories can be found at:[email or web address] Marlene Harden FAN BALANCER IMG CT CHEST Final Result documented in [...] as of this encounter Care Teams Digital Production Manager Relationship Specialty Start Date End Date Marlene Harden NP 70 [place] [address] PCP - General Family Medicine 01/10/22 08/07/24 Cj Meyer DO 70 [place] [address] PCP - General Internal Medicine 08/08/24 Dennis Temple MBBS 70 [place] [address] [email or web address] Primary Oncologist Hematology and Oncology 04/02/23 Gabriela Barnhart CNP [address] [place] [address] [email or web address] Nurse Practitioner Medical Oncology 01/16/24 documented as of this encounter Additional Source Comments The information contained in this document represents components of the legal health record. It is not the complete legal health record.[facility]
== END 2025-04-19 07:28 | disposition home or self-care (01) ==
LOC: HO.MMNH1L 07:27
PROVIDERS: Visit Provider Family Medicine
DX: J96.21 Acute and chronic respiratory failure with hypoxia (principal); J44.1 Chronic obstructive pulmonary disease with (acute) exacerbation; E46 Unspecified protein-calorie malnutrition
CPT/HCPCS: 36415; 80048; 85025